=== PATIENT | female | born 1955 | race African-American/Black ===

== ENCOUNTER → 2016-08-29 | Outpatient (CLI) | payer MEDICARE ==
[2016-08-30 10:37] LABS: CREATININE URINE 123.7 mg/dL (Not Estab.); MICROALBUMIN URINE 56.9 ug/mL (Not Estab.)
== END ==
LOC: OD 12:12
PROVIDERS: ATTEND Internal Medicine Nephrology
DX: N18.3 Chronic kidney disease, stage 3 (moderate) (principal); R80.9 Proteinuria, unspecified; E55.9 Vitamin D deficiency, unspecified
CPT/HCPCS: 36415; 82043; 82306; 82310; 82570

== ENCOUNTER → 2016-09-05 | Outpatient (CLI) | payer MEDICARE ==
[2016-09-05 12:18] LABS: ANION GAP 15 (5-19); BLOOD UREA NITROGEN 35 mg/dL (7-20); CARBON DIOXIDE 24 mmol/L (22-30); CHLORIDE 111 mmol/L (98-107); GLUCOSE 99 mg/dL (75-110); POTASSIUM 4.4 mmol/L (3.6-5.0); SODIUM 149.6 mmol/L (137-145)
== END ==
LOC: OD 10:37
PROVIDERS: ATTEND Internal Medicine Nephrology
DX: N18.3 Chronic kidney disease, stage 3 (moderate) (principal)
CPT/HCPCS: 36415; 80048

== ENCOUNTER → 2016-10-15 | Outpatient (CLI) | payer MEDICARE | LOC: OD 12:26 | PROVIDERS: ATTEND Internal Medicine Medical Oncology | DX: C64.9 Malignant neoplasm of unspecified kidney, except renal pelvis (principal) | CPT/HCPCS: 71020 ==

== ENCOUNTER → 2016-10-27 | Outpatient (CLI) | payer MEDICARE | LOC: WI 13:55 | PROVIDERS: ATTEND Internal Medicine Medical Oncology | DX: Z12.31 Encounter for screening mammogram for malignant neoplasm of breast (principal) | CPT/HCPCS: 77067; G0202 ==

== ENCOUNTER → 2016-11-19 | Outpatient (CLI) | payer MEDICARE | LOC: OD 15:24 | PROVIDERS: ATTEND Family Medicine | DX: M54.5 Low back pain (principal); M47.897 Other spondylosis, lumbosacral region | CPT/HCPCS: 72100 ==

== ENCOUNTER → 2016-11-20 | Outpatient (CLI) | payer MEDICARE ==
[~2016-11-20] MED LIST: AMINOPHYLLINE INJ/PF 250 MG/10 ML SDV IV ONE; REGADENOSON INJ 0.4 MG/5 ML DISP.SYRIN IV ONE
--- NOTE | 2016-11-20 20:02 | DRAGON STRESS TEST REPORT ---
INTRAVENOUS LEXISCAN CARDIOLITE STRESS TEST USING SINGLE PHOTON EMMISION COMPUTERIZED TOMOGRAPHIC. DATE OF PROCEDURE: November 20, 2016 INDICATION : Coronary artery disease, cardiomyopathy. CARDIAC RISK FACTORS: hypertension, family history of CAD RESTING EKG: Sinus rhythm, no Baseline ST-T wave changes noted. STRESS EKG: No significant changes noted with LexiScan bolus REASON FOR TERMINATION: Protocol. PROCEDURE REPORT: Baseline heart rate 94 beats per minute with blood pressure of 143/78. Patient had no significant complaints. Heart rate at 2 minutes post bolus 81 with a blood pressure of 137/80. 3 minutes post bolus heart rate [111] with blood pressure of [144/88]. No significant EKG changes were noted. Patient had significant complaints during the procedure or postprocedure. It seems patient most likely had a panic attacks with symptoms of shortness of breath, dizziness, chattering of her teeth and some shaking spells. Patient injected with Aminophyllin 75 mg at 3 minutes or later after Lexiscan bolus. Another bolus of 50 mg Aminophyllin given at approximately 40 minutes post Lexiscan bolus. CONCLUSIONS: Normal EKG and hemodynamic response to IV LexiScan. NUCLEAR DATA: At rest the patient was given 13.34 millicuries of technetium 99 sestamibi injected intravenously. As per protocol rest gated SPECT images were obtained. Subsequently the patient was given intravenous LexiScan at a dose of 0.4 mg in 5 mL intravenously, followed by flush with normal saline. Subsequently the stress dose of 38.3 millicuries of technetium 99 sestamibi was injected intravenously. As per protocol stress gated images were obtained. NUCLEAR INTERPRETATION: Both raw and processed data were used for interpretation. Visual, qualitative, computer-generated quantitative data was used. There was good myocardial uptake of technetium compound. Motion artifact and soft tissue attenuations were noted. Increased visceral uptake was noted. Increased breast attenuation was also noted. There was mild decreased uptake noted in the anterior wall in stress imaging with total SSS score of 3, however there were no corresponding wall motion abnormalities therefore this decreased uptake is felt to be related to differences in breast attenuation artifact. Clinical correlation however is being recommended. No definitive areas of fixed perfusion defect or scars noted. EKG gated imaging showed LV EF at 54 %, rest and stress gated EF similar visually. T. I D. ratio was 0.99. Lung heart ratio noted to be within normal limits 0.29. No significant extracardiac and abnormal radiotracer activities were noted. RV free wall uptake was noted to be mildly increased. IMPRESSION: Also refer to comments under nuclear interpretation. Also test results needs to be interpreted in the context of pretest probability. 1. There is no definitive scintigraphic evidence of LexiScan induced myocardial ischemia.There was mild decreased uptake noted in the anterior wall in stress imaging with total SSS score of 3, however there were no corresponding wall motion abnormalities therefore this decreased uptake is felt to be related to differences in breast attenuation artifact. Clinical correlation however is being recommended. 2. There is no definitive scintigraphic evidence of myocardial infarction/scar. 3. EKG gated imaging shows left ejection fraction of approximately 54 %, no regional wall motion abnormalities were noted. 4. Clinical correlation requested as occasionally single vessel disease or balanced ischemia could be missed. In approximately 10% of the cases Lexiscan may not cause adequate vasodilatory stress. RECOMMENDATIONS: Aggressive risk factor modification, medical therapy. Clinical correlation with echocardiogram derived ejection fraction. Inability to exercise by itself can lead to increased cardiovascular event risks. Consider cardiology consultation and or follow-up if clinically indicated. I AM AVAILABLE FOR CARDIOLOGY CONSULTATION AND FOLLOWUP IF REQUESTED BY PMD Ishaan Mckinley M.D., [employer] Associate solar manager, Board certified in cardiovascular diseases, Nuclear cardiology, Echocardiography Cardiac CT and cardiac MRI Ph. [phone] [facility]
== END ==
LOC: RAD 07:00
PROVIDERS: ATTEND Internal Medicine Cardiovascular Disease
DX: I25.10 Atherosclerotic heart disease of native coronary artery without angina pectoris (principal)
CPT/HCPCS: 93017; 78452; A9500; J2785; J0280; Q9969

== ENCOUNTER → 2016-11-26 | Outpatient (CLI) | payer MEDICARE ==
[2016-11-26 15:33] LABS: ABSOLUTE EOSINOPHILS # (AUTO) 0.1 10^3/uL (0.0-0.6); ABSOLUTE LYMPHOCYTES (AUTO) 1.6 10^3/uL (0.5-4.7); ABSOLUTE MONOCYTES (AUTO) 0.3 10^3/uL (0.1-1.4); ABSOLUTE NEUT (AUTO) 2.2 10^3/uL (1.7-8.2); BASOPHILS % (AUTO) 0.7 % (0-2); EOSINOPHILS % (AUTO) 1.2 % (0-6); HEMATOCRIT 34.5 % (36.0-47.0); HEMOGLOBIN 11.2 g/dL (12.0-15.5); HGB HCT DIFFERENCE -0.9; LYMPHOCYTES % (AUTO) 37.9 % (13-45); MEAN CORPUSCULAR HEMOGLOBIN 27.3 pg (27.0-33.4); MEAN CORPUSCULAR HGB CONC 32.4 g/dL (32.0-36.0); MEAN CORPUSCULAR VOLUME 84 fl (80-97); MONOCYTES % (AUTO) 7.7 % (3-13); RED CELL DISTRIBUTION WIDTH 15.6 % (11.5-14.0); SEGMENTED NEUTROPHILS % (AUTO) 52.5 % (42-78); WHITE BLOOD COUNT 4.2 10^3/uL (4.0-10.5)
[2016-11-26 15:53] LABS: ANION GAP 14 (5-19); BLOOD UREA NITROGEN 40 mg/dL (7-20); CALCIUM 9.7 mg/dL (8.4-10.2); CARBON DIOXIDE 24 mmol/L (22-30); CHLORIDE 108 mmol/L (98-107); GLUCOSE 114 mg/dL (75-110); POTASSIUM 4.6 mmol/L (3.6-5.0); SODIUM 146.4 mmol/L (137-145)
[2016-11-28 10:38] LABS: CREATININE URINE 170.9 mg/dL (Not Estab.); MICROALBUMIN URINE 48.3 ug/mL (Not Estab.)
== END ==
LOC: OD 14:46
PROVIDERS: ATTEND Internal Medicine Nephrology
DX: N18.3 Chronic kidney disease, stage 3 (moderate) (principal); R80.9 Proteinuria, unspecified; D64.9 Anemia, unspecified
CPT/HCPCS: 36415; 80048; 82043; 82570; 85025

== ENCOUNTER 2016-12-09 12:41 | Emergency (ER) | payer MEDICARE ==
--- NOTE | 2016-12-09 13:35 | ER Document Report ---
ED Skin Rash/Insect Bite/Abscs - General Chief Complaint: Abscess Stated Complaint: POSSIBLE BOIL ON THIGH Time Seen by Provider: 12/09/16 13:24 Mode of Arrival: Ambulatory Information source: Patient Notes: Pt is a 61 year old female who presents to the ER today for a boil on her left labia that burst 4 days ago but continues to drain. Pt states that it had "a lot of pus" come from it and is now draining clear liquid and blood. She denies fever/chills. She thinks she may have a history of MRSA. TRAVEL OUTSIDE OF THE [place] IN LAST 30 DAYS: No - Related Data Allergies/Adverse Reactions: sulfamethoxazole [From Bactrim] Allergy (Verified 12/09/16 13:09) trimethoprim [From Bactrim] Allergy (Verified 12/09/16 13:09) aspirin [Aspirin] Adverse Reaction (Verified 12/09/16 13:09) Past Medical History - General Information source: Patient - Social History Smoking Status: Unknown if Ever Smoked Family History: CAD, Hypertension Patient has suicidal ideation: No Patient has homicidal ideation: No - Past Medical History Cardiac Medical History: Reports: Hx Congestive Heart Failure, Hx Coronary Artery Disease, Hx Heart Attack - [place] 2013, Hx Hypercholesterolemia, Hx Hypertension Pulmonary Medical History: Denies: Hx Asthma, Hx Bronchitis, Hx COPD, Hx Pneumonia, Hx Tuberculosis Neurological Medical History: Denies: Hx Cerebrovascular Accident, Hx Seizures Renal/ Medical History: Reports: Hx Renal Insufficiency - Status post left nephrectomy for renal cell CA. Denies: Hx Peritoneal Dialysis Malignancy Medical History: Reports: Hx Renal (Kidney) Cancer GI Medical History: Reports: Hx Gastritis, Hx Gastroesophageal Reflux Disease Musculoskeltal Medical History: Reports Hx Arthritis - Right hip DJD Past Surgical History: Reports: Hx Cholecystectomy, Hx Herniorrhaphy - Umbilical hernia repair complicated by bowel perforation, Hx Kidney (Renal Surgery) - Left nephrectomy for renal cell carcinoma - Immunizations Hx Diphtheria, Pertussis, Tetanus Vaccination: Yes Hx Pneumococcal Vaccination: 08/03/10 Review of Systems - Review of Systems Constitutional: No symptoms reported EENT: No symptoms reported Cardiovascular: No symptoms reported Respiratory: No symptoms reported Gastrointestinal: No symptoms reported Genitourinary: No symptoms reported Female Genitourinary: No symptoms reported Musculoskeletal: No symptoms reported Skin: See HPI Hematologic/Lymphatic: No symptoms reported Neurological/Psychological: No symptoms reported Physical Exam - Vital signs Vitals: Temp Pulse Resp BP Pulse Ox 98.2 F 59 L 18 150/90 H 99 12/09/16 12:54 12/09/16 12:54 12/09/16 12:54 12/09/16 12:54 12/09/16 12:54 - Notes Notes: PHYSICAL EXAMINATION: GENERAL: Well-appearing and in no acute distress. HEAD: Atraumatic, normocephalic. EYES: Pupils equal round and reactive to light, extraocular movements intact, sclera anicteric, conjunctiva are normal. NECK: Normal range of motion, supple without lymphadenopathy LUNGS: CTAB and equal. No wheezes rales or rhonchi. HEART: Regular rate and rhythm without murmurs EXTREMITIES: Normal range of motion, no pitting edema. No cyanosis. NEUROLOGICAL: Cranial nerves grossly intact. Normal sensory/motor exams. PSYCH: Normal mood, normal affect. SKIN: Warm, Dry, normal turgor, 3 cm long by 1 cm wide area of induration with open area in center draining purulent fluid and blood Course - Re-evaluation Re-evalutation: 12/09/16 13:39 area already draining, will start pt on doxycycline. she is to return if area worsens or draining stops and area doesn't improve. pt would like to try antibiotic before incision and drainage. 12/09/16 13:50 12/09/16 13:51 - Vital Signs Vital signs: Temp Pulse Resp BP Pulse Ox 98.2 F 59 L 18 150/90 H 99 12/09/16 12:54 12/09/16 12:54 12/09/16 12:54 12/09/16 12:54 12/09/16 12:54 Discharge - Discharge Clinical Impression: Abscess of labia Condition: Stable Disposition: HOME, SELF-CARE Instructions: Post Incision and Drainage, Oral Narcotic Medication ([facility]) Additional Instructions: Return immediately for any new or worsening symptoms. Follow up with primary care provider, call tomorrow to make followup appointment. Prescriptions: Doxycycline Hyclate 100 mg PO BID #20 capsule
[2016-12-09] MEDS ORDERED: DOXYCYCLINE HYCLATE 100 MG TABLET PO ONE (13:36)
[2016-12-09] MEDS ORDERED: HYDROCODONE/ACETAMINOPHEN 5-325 MG 6 TAB/DSPK PO PRN (13:36)
[2016-12-09] MEDS ORDERED: MUPIROCIN 2% OINTMENT 22 GM TP ONE (13:42)
[2016-12-09 15:24] VITALS: BP 146/84
== END 2016-12-09 14:18 | disposition home or self-care (01) ==
LOC: ER 12:41
DX: N76.4 Abscess of vulva (principal); I50.9 Heart failure, unspecified; E78.00 Pure hypercholesterolemia, unspecified; I10 Essential (primary) hypertension; Z88.3 Allergy status to other anti-infective agents; Z88.6 Allergy status to analgesic agent; Z86.14 Personal history of Methicillin resistant Staphylococcus aureus infection; I25.2 Old myocardial infarction
CPT/HCPCS: 99282; A9270 ×3; J3490

== ENCOUNTER 2016-12-19 07:52 | Inpatient (IN) | payer MEDICARE ==
[2016-12-19 10:03] LABS: ABSOLUTE MONOCYTES (AUTO) 0.4 10^3/uL (0.1-1.4); HEMOGLOBIN 13.6 g/dL (12.0-15.5); MEAN CORPUSCULAR VOLUME 85 fl (80-97); WHITE BLOOD COUNT 6.5 10^3/uL (4.0-10.5)
[2016-12-19 10:11] LABS: APPEARANCE,URINE SLIGHTLY-CLOUDY; BILIRUBIN,URINE NEGATIVE (NEGATIVE); GLUCOSE, URINE NEGATIVE (NEGATIVE); KETONES,URINE NEGATIVE (NEGATIVE); LEUKOCYTE ESTERASE,URINE NEGATIVE (NEGATIVE); NITRITE,URINE NEGATIVE (NEGATIVE); PROTEIN,URINE 30 mg/dL (NEGATIVE); URINE SPECIFIC GRAVITY 1.016; UROBILINOGEN,URINE NEGATIVE mg/dL (<2.0)
[2016-12-19 10:12] LABS: ABSOLUTE LYMPHOCYTES (AUTO) 1.5 10^3/uL (0.5-4.7); ABSOLUTE NEUT (AUTO) 4.6 10^3/uL (1.7-8.2); ALANINE AMINOTRANSFERASE 49 U/L (9-52); ALBUMIN 4.2 g/dL (3.5-5.0); ALKALINE PHOSPHATASE 264 U/L (38-126); ANION GAP 19 (5-19); ASPARTATE AMINO TRANSFERASE 42 U/L (14-36); BASOPHILS % (AUTO) 0.5 % (0-2); BILIRUBIN,DIRECT 0.6 mg/dL (0.0-0.4); BILIRUBIN,TOTAL 0.9 mg/dL (0.2-1.3); BLOOD UREA NITROGEN 46 mg/dL (7-20); CALCIUM 9.8 mg/dL (8.4-10.2); CARBON DIOXIDE 14 mmol/L (22-30); CHLORIDE 110 mmol/L (98-107); CREATININE RESULT 1.62 mg/dL (0.52-1.25); EOSINOPHILS % (AUTO) 0.1 % (0-6); GLUCOSE 134 mg/dL (75-110); HEMATOCRIT 43.4 % (36.0-47.0); HGB HCT DIFFERENCE -2.6; LIPASE 860.4 U/L (23-300); LYMPHOCYTES % (AUTO) 22.8 % (13-45); MEAN CORPUSCULAR HEMOGLOBIN 26.7 pg (27.0-33.4); MEAN CORPUSCULAR HGB CONC 31.3 g/dL (32.0-36.0); MONOCYTES % (AUTO) 6.2 % (3-13); POTASSIUM 4.3 mmol/L (3.6-5.0); RED BLOOD COUNT 5.08 10^6/uL (3.72-5.28); RED CELL DISTRIBUTION WIDTH 15.6 % (11.5-14.0); SEGMENTED NEUTROPHILS % (AUTO) 70.4 % (42-78); SODIUM 143.4 mmol/L (137-145); TOTAL PROTEIN 8.4 g/dL (6.3-8.2)
[2016-12-19] MEDS ORDERED: ONDANSETRON 4 MG TAB.RAPDIS PO ONE (10:31)
--- NOTE | 2016-12-19 10:31 | ER Document Report ---
ED Medical Screen (RME) - General Mode of Arrival: Wheelchair Information source: Patient TRAVEL OUTSIDE OF THE [place] IN LAST 30 DAYS: No <FABIOLA WATTS - Last Filed: 12/19/16 10:27> <ILIR HEARN - Last Filed: 12/20/16 10:23> - General Chief Complaint: Abdominal Pain Stated Complaint: RIGHT SIDE FLANK PAIN/VOMITING Time Seen by Provider: 12/19/16 10:22 Notes: 61-year-old female presents to ED for right upper quadrant abdominal pain that goes around to the back. She states it is worse with food it is a dull achy pain. She has had it for 2 days. She had nausea and vomiting vomiting 3 times yesterday and twice today. She had 4 mg of Zofran yesterday that did not help. She has a history of a mesh from umbilical hernia with some weight in this area. She has a normal white count had a lipase rate 60 a BUN of 46 with a creatinine of 162 and AST of 42 and ALT of 49 and a negative urine. I will be ordering an ultrasound of the upper abdomen. I have greeted and performed a rapid initial assessment of this patient. A comprehensive ED assessment and evaluation of the patient, analysis of test results and completion of medical decision making process will be conducted by an additional ED providers. (FABIOLA WATTS) - Related Data Allergies/Adverse Reactions: sulfamethoxazole [From Bactrim] Allergy (Verified 12/19/16 08:02) trimethoprim [From Bactrim] Allergy (Verified 12/19/16 08:02) aspirin [Aspirin] Adverse Reaction (Verified 12/19/16 08:02) Past Medical History - Social History Family history: Reviewed & Not Pertinent - Past Medical History Cardiac Medical History: Reports: Hx Congestive Heart Failure, Hx Coronary Artery Disease, Hx Heart Attack - [place] 2013, Hx Hypercholesterolemia, Hx Hypertension Pulmonary Medical History: Denies: Hx Asthma, Hx Bronchitis, Hx COPD, Hx Pneumonia, Hx Tuberculosis Neurological Medical History: Denies: Hx Cerebrovascular Accident, Hx Seizures Renal/ Medical History: Reports: Hx Renal Insufficiency - Status post left nephrectomy for renal cell CA. Denies: Hx Peritoneal Dialysis Malignancy Medical History: Reports: Hx Renal (Kidney) Cancer GI Medical History: Reports: Hx Gastritis, Hx Gastroesophageal Reflux Disease Musculoskeltal Medical History: Reports Hx Arthritis - Right hip DJD Past Surgical History: Reports: Hx Abdominal Surgery - HERNIA, PERFORATED BOWEL , Hx Cholecystectomy, Hx Herniorrhaphy - Umbilical hernia repair complicated by bowel perforation, Hx Kidney (Renal Surgery) - Left nephrectomy for renal cell carcinoma - Immunizations Hx Diphtheria, Pertussis, Tetanus Vaccination: Yes <FABIOLA WATTS - Last Filed: 12/19/16 10:27> Course - Laboratory Result Diagrams: 12/19/16 09:00 12/19/16 09:00 <FABIOLA WATTS - Last Filed: 12/19/16 10:27> - Laboratory Result Diagrams: 12/20/16 05:30 12/19/16 09:00 <ILIR HEARN - Last Filed: 12/20/16 10:23> - Vital Signs Vital signs: Temp Pulse Resp BP Pulse Ox 97.8 F 69 16 165/82 H 100 12/20/16 07:25 12/20/16 07:25 12/20/16 07:25 12/20/16 07:25 12/20/16 04:00 - Laboratory Laboratory results interpreted by me: 12/19/16 12/19/16 12/19/16 09:00 09:00 09:10 MCH 26.7 L MCHC 31.3 L RDW 15.6 H Chloride 110 H Carbon Dioxide 14 L BUN 46 H Creatinine 1.62 H Est GFR ( Amer) 39 L Est GFR (Non-Af Amer) 33 L Glucose 134 H Direct Bilirubin 0.6 H AST 42 H Alkaline Phosphatase 264 H Total Protein 8.4 H Lipase 860.4 H Urine Protein 30 H Doctor's Discharge <FABIOLA WATTS - Last Filed: 12/19/16 10:27> <ILIR HEARN - Last Filed: 12/20/16 10:23> - Discharge Clinical Impression: Pancreatitis, Nausea and vomiting, Chronic renal insufficiency, stage III ( moderate), Metabolic acidosis Condition: Stable Disposition: ADMITTED INPATIENT
[2016-12-19] MEDS ORDERED: NORMAL SALINE 1000 ML 1,000 ML IV ONE ×2 (11:16→15:14)
[2016-12-19] MEDS ORDERED: MORPHINE SULFATE 10 MG/ML INJ IV ONE ×3 (12:02→15:46)
--- NOTE | 2016-12-19 12:08 | ER Document Report ---
ED GI/ - General Mode of Arrival: Wheelchair Information source: Patient TRAVEL OUTSIDE OF THE [place] IN LAST 30 DAYS: No - HPI Patient complains to provider of: Abdominal pain, Vomiting Onset: Other - 2 days ago Location: RUQ Associated symptoms: Other - see notes above <ROXY DOBSON - Last Filed: 12/19/16 14:11> <MALKA STOCKTON - Last Filed: 12/19/16 16:07> - General Chief Complaint: Abdominal Pain Stated Complaint: RIGHT SIDE FLANK PAIN/VOMITING Time Seen by Provider: 12/19/16 10:22 Notes: 61 year old female with history of CHF, CAD, [place] (2013), hypertension, umbilical hernia repair, cholecystectomy, and perforated bowel repair presents to the ED complaining of RUQ abdominal pain and vomiting that started 2 days ago. Patient states that she vomited 3x yesterday and 2x today. Patient tried using 4 mg Zofran yesterday to no relief. Patient is currently on chlorthalidone and losartan. Patient's primary care provider is Dr. Arias. Patient had a CT abdomen performed on 07/2015 which revealed a pancreatic mass to the tail and had a Ultrasound guided biopsy at [facility]. Additional past medical history found in chart. (ROXY DOBSON) - Related Data Allergies/Adverse Reactions: sulfamethoxazole [From Bactrim] Allergy (Verified 12/19/16 08:02) trimethoprim [From Bactrim] Allergy (Verified 12/19/16 08:02) aspirin [Aspirin] Adverse Reaction (Verified 12/19/16 08:02) Past Medical History - General Information source: Patient - Social History Smoking Status: Unknown if Ever Smoked Family History: CAD, Hypertension Patient has suicidal ideation: No Patient has homicidal ideation: No - Past Medical History Cardiac Medical History: Reports: Hx Congestive Heart Failure, Hx Coronary Artery Disease, Hx Heart Attack - [place] 2013, Hx Hypercholesterolemia, Hx Hypertension Renal/ Medical History: Reports: Hx Renal Insufficiency - Status post left nephrectomy for renal cell CA. Denies: Hx Peritoneal Dialysis Malignancy Medical History: Reports: Hx Pancreatic Cancer - Mass to the pancreatic tail 07/2015., Hx Renal (Kidney) Cancer, Other - CT guided lung biopsy in 2015. GI Medical History: Reports: Hx Gastritis, Hx Gastroesophageal Reflux Disease Musculoskeltal Medical History: Reports Hx Arthritis - Right hip DJD Past Surgical History: Reports: Hx Abdominal Surgery - HERNIA, PERFORATED BOWEL , Hx Cholecystectomy, Hx Herniorrhaphy - Umbilical hernia repair complicated by bowel perforation, Hx Kidney (Renal Surgery) - Left nephrectomy for renal cell carcinoma - Immunizations Hx Diphtheria, Pertussis, Tetanus Vaccination: Yes Hx Pneumococcal Vaccination: 08/03/10 <ROXY DOBSON - Last Filed: 12/19/16 14:11> Review of Systems - Review of Systems Constitutional: No symptoms reported EENT: No symptoms reported Cardiovascular: No symptoms reported Respiratory: No symptoms reported Gastrointestinal: See HPI, Abdominal pain - RUQ, Nausea, Vomiting Genitourinary: No symptoms reported Female Genitourinary: No symptoms reported Musculoskeletal: No symptoms reported Skin: No symptoms reported Hematologic/Lymphatic: No symptoms reported Neurological/Psychological: No symptoms reported -: Yes All other systems reviewed and negative <ROXY DOBSON - Last Filed: 12/19/16 14:11> Physical Exam - General General appearance: Alert In distress: None - HEENT Head: Normocephalic, Atraumatic Eyes: Normal Extraocular movements intact: Yes Pupils: PERRL - Respiratory Respiratory status: No respiratory distress Breath sounds: Normal - Cardiovascular Rhythm: Regular Heart sounds: Normal auscultation - Abdominal Inspection: Normal Distension: No distension Tenderness: Tender - epigastric tenderness to palpation - Back Back: Normal - Extremities General upper extremity: Normal inspection, Normal ROM General lower extremity: Normal inspection, Normal ROM - Neurological Neuro grossly intact: Yes - Psychological Associated symptoms: Normal affect, Normal mood - Skin Skin Temperature: Warm Skin Moisture: Dry Skin Color: Normal <ROXY DOBSON - Last Filed: 12/19/16 14:11> Course - Laboratory Result Diagrams: 12/19/16 09:00 12/19/16 09:00 <ROXY DOBSON - Last Filed: 12/19/16 14:11> - Laboratory Result Diagrams: 12/19/16 09:00 12/19/16 09:00 - Consults Dr. George Time consulted: 16:00 Consulted provider: will come to ER <MALKA STOCKTON - Last Filed: 12/19/16 16:07> - Vital Signs Vital signs: Temp Pulse Resp BP Pulse Ox 97.8 F 59 L 20 145/83 H 100 12/19/16 08:04 12/19/16 14:08 12/19/16 08:04 12/19/16 14:08 12/19/16 14:08 - Laboratory Laboratory results interpreted by me: 12/19/16 12/19/16 12/19/16 09:00 09:00 09:10 MCH 26.7 L MCHC 31.3 L RDW 15.6 H Chloride 110 H Carbon Dioxide 14 L BUN 46 H Creatinine 1.62 H Est GFR ( Amer) 39 L Est GFR (Non-Af Amer) 33 L Glucose 134 H Direct Bilirubin 0.6 H AST 42 H Alkaline Phosphatase 264 H Total Protein 8.4 H Lipase 860.4 H Urine Protein 30 H Discharge <ROXY DOBSON - Last Filed: 12/19/16 14:11> - Discharge Admitting Provider: Hospitalist Unit Admitted: Medical Floor <MALKA STOCKTON - Last Filed: 12/19/16 16:07> - Discharge Clinical Impression: Chronic renal insufficiency, stage III (moderate), Metabolic acidosis Pancreatitis Qualifiers: Chronicity: acute Pancreatitis type: unspecified pancreatitis type Acute pancreatitis complication: no infection or necrosis Qualified Code(s): K85.90 - Acute pancreatitis without necrosis or infection, unspecified Nausea and vomiting Qualifiers: Vomiting type: unspecified Vomiting Intractability: non-intractable Qualified Code(s): R11.2 - Nausea with vomiting, unspecified Condition: Stable Disposition: ADMITTED INPATIENT Scribe Attestation: 12/19/16 16:07 I personally performed the services described in the documentation, reviewed and edited the documentation which was dictated to the scribe in my presence, and it accurately records my words and actions. (MALKA STOCKTON) Scribe Documentation - Scribe Written by Scribe:: Luis Redd, 12/19/2016 [id number] acting as scribe for :: Isidoro <ROXY DOBSON - Last Filed: 12/19/16 14:11>
[2016-12-19 12:17] LABS: ADD ON TESTING BLD IN LAB ACKNOWLEDGE
[2016-12-19 12:49] LABS: CHOLESTEROL 112.52 mg/dL (0-200); TRIGLYCERIDES 79 mg/dL (<150)
[2016-12-19] MEDS ORDERED: HYDROMORPHONE HCL INJ/PF 2 MG/ML AMPULE IM ONE (13:30)
[2016-12-19] MEDS ORDERED: ONDANSETRON HCL INJ/PF 4 MG/2 ML SDV IV ONE (15:46)
[2016-12-19] MEDS ORDERED: ONDANSETRON HCL INJ/PF 4 MG/2 ML SDV IV PRN (16:33)
[2016-12-19] MEDS ORDERED: ACETAMINOPHEN 325 MG TABLET PO PRN (16:33)
--- NOTE | 2016-12-19 17:00 | PDOC H&P ---
History of Present Illness Admission Date/PCP: 12/19/16 PCP: dr jones Nephro: dr mead GI: dr menendez, [place] Patient complains of: epigastric pain History of Present Illness: JIHAN MORA is a 61 year old female presents to the ED from home with 2d hx of sharp, stabbing, constant, crescendo, non radiating epigastric pain asctd with nausea and vomiting, worse after eating, better with rest but unrelieved by her usual percocet at home. she has hx of pancreatitis with ?panc tail mass for which she is seen by GI in [place]. last endoscopy upper and lower was last year and reportedly normal. eval in ED shows elevated lipase and findings at bedside suggest recurrent pancreatitis. we were asked to admit. lipids were normal. she denies ETOH confirmed by her daughter at bedside. no new meds. Past Medical History Cardiac Medical History: Reports: Congestive Heart Failure, Coronary Artery Disease, Myocardial Infarction - [place] 2013, Hyperlipidema, Hypertension Pulmonary Medical History: Denies: Asthma, Bronchitis, Chronic Obstructive Pulmonary Disease (COPD), Pneumonia, Tuberculosis Neurological Medical History: Denies: Seizures Malignancy Medical History: Reports: Pancreatic Cancer - Mass to the pancreatic tail 07/2015., Renal (Kidney) Cancer, Other - CT guided lung biopsy in 2016. GI Medical History: Reports: Gastroesophageal Reflux Disease Musculoskeltal Medical History: Reports: Arthritis - Right hip DJD Hematology: Reports: Anemia Past Surgical History Past Surgical History: Reports: Cholecystectomy, Herniorrhaphy - Umbilical hernia repair complicated by bowel perforation Social History Smoking Status: Unknown if Ever Smoked Frequency of Alcohol Use: None Hx Recreational Drug Use: No Hx Prescription Drug Abuse: No - Advance Directive Resuscitation Status: Full Code Family History Family History: CAD, Hypertension Parental Family History Reviewed: Yes Children Family History Reviewed: Yes Sibling(s) Family History Reviewed.: Yes Medication/Allergy Home Medications: Oxycodone HCl/Acetaminophen [Percocet 5-325 mg Tablet] 1 - 2 tab PO Q6H PRN #12 tablet 12/26/14 Chlorthalidone [Chlorthalidone 25 mg Tablet] 25 mg PO 07/09/16 Ergocalciferol (Vitamin D2) [Vitamin D] 07/09/16 Losartan Potassium 50 mg PO 07/09/16 Doxycycline Hyclate 100 mg PO BID #20 capsule 12/09/16 Allergies/Adverse Reactions: sulfamethoxazole [From Bactrim] Allergy (Verified 12/19/16 08:02) trimethoprim [From Bactrim] Allergy (Verified 12/19/16 08:02) aspirin [Aspirin] Adverse Reaction (Verified 12/19/16 08:02) Review of Systems Constitutional: ABSENT: chills, fever(s), headache(s), weight gain, weight loss Eyes: ABSENT: visual disturbances Ears: ABSENT: hearing changes Cardiovascular: ABSENT: chest pain, dyspnea on exertion, edema, orthropnea, palpitations Respiratory: ABSENT: cough, hemoptysis Gastrointestinal: PRESENT: abdominal pain, diarrhea, nausea, vomiting. ABSENT: constipation, hematemesis, hematochezia Genitourinary: PRESENT: difficulty urinating - less urine output. ABSENT: dysuria, hematuria Musculoskeletal: ABSENT: joint swelling Integumentary: ABSENT: rash, wounds Neurological: ABSENT: abnormal gait, abnormal speech, confusion, dizziness, focal weakness, syncope Psychiatric: ABSENT: anxiety, depression, homidical ideation, suicidal ideation Endocrine: ABSENT: cold intolerance, heat intolerance, polydipsia, polyuria Hematologic/Lymphatic: ABSENT: easy bleeding, easy bruising Physical Exam Vital Signs: Temp Pulse Resp BP Pulse Ox 97.8 F 59 L 20 145/83 H 100 12/19/16 08:04 12/19/16 14:08 12/19/16 08:04 12/19/16 14:08 12/19/16 14:08 Intake & Output 12/18/16 12/19/16 12/20/16 06:59 06:59 06:59 Weight 88.6 kg General appearance: PRESENT: mild distress, well-developed, well-nourished Head exam: PRESENT: atraumatic Eye exam: ABSENT: conjunctival injection, scleral icterus Mouth exam: PRESENT: dry mucosa, neck supple Neck exam: PRESENT: full ROM. ABSENT: JVD, tenderness Respiratory exam: PRESENT: clear to auscultation marianna. ABSENT: accessory muscle use Cardiovascular exam: PRESENT: RRR. ABSENT: tachycardia Pulses: PRESENT: normal carotid pulses, normal radial pulses Vascular exam: PRESENT: normal capillary refill GI/Abdominal exam: PRESENT: diminished bowel sounds, soft, tenderness - epigastrium to percussion, intol of palpation Extremities exam: PRESENT: full ROM. ABSENT: calf tenderness, pedal edema Musculoskeletal exam: PRESENT: ambulatory, full ROM Neurological exam: PRESENT: alert, awake, oriented to person, oriented to place , oriented to time, oriented to situation Psychiatric exam: PRESENT: appropriate affect, normal mood Skin exam: PRESENT: dry, warm Results Laboratory Results: 12/19/16 09:00 12/19/16 09:00 12/19/16 12/19/16 12/19/16 09:00 09:00 09:00 WBC 6.5 RBC 5.08 Hgb 13.6 Hct 43.4 MCV 85 MCH 26.7 L MCHC 31.3 L RDW 15.6 H Plt Count 212 Seg Neutrophils % 70.4 Lymphocytes % 22.8 Monocytes % 6.2 Eosinophils % 0.1 Basophils % 0.5 Absolute Neutrophils 4.6 Absolute Lymphocytes 1.5 Absolute Monocytes 0.4 Absolute Eosinophils 0.0 Absolute Basophils 0.0 Sodium 143.4 Potassium 4.3 Chloride 110 H Carbon Dioxide 14 L Anion Gap 19 BUN 46 H Creatinine 1.62 H Est GFR ( Amer) 39 L Est GFR (Non-Af Amer) 33 L Glucose 134 H Calcium 9.8 Total Bilirubin 0.9 AST 42 H ALT 49 Alkaline Phosphatase 264 H Total Protein 8.4 H Albumin 4.2 Triglycerides 79 Cholesterol 112.52 Lipase 860.4 H Urine Color Urine Appearance Urine pH Ur Specific [place] Urine Protein Urine Glucose (UA) Urine Ketones Urine Blood Urine Nitrite Ur Leukocyte Esterase Urine WBC (Auto) Urine RBC (Auto) 12/19/16 09:10 WBC RBC Hgb Hct MCV MCH MCHC RDW Plt Count Seg Neutrophils % Lymphocytes % Monocytes % Eosinophils % Basophils % Absolute Neutrophils Absolute Lymphocytes Absolute Monocytes Absolute Eosinophils Absolute Basophils Sodium Potassium Chloride Carbon Dioxide Anion Gap BUN Creatinine Est GFR ( Amer) Est GFR (Non-Af Amer) Glucose Calcium Total Bilirubin AST ALT Alkaline Phosphatase Total Protein Albumin Triglycerides Cholesterol Lipase Urine Color YELLOW Urine Appearance SLIGHTLY-CLOUDY Urine pH 5.0 Ur Specific [place] 1.016 Urine Protein 30 H Urine Glucose (UA) NEGATIVE Urine Ketones NEGATIVE Urine Blood NEGATIVE Urine Nitrite NEGATIVE Ur Leukocyte Esterase NEGATIVE Urine WBC (Auto) 1 Urine RBC (Auto) 0 Impressions: Abdomen Ultrasound 12/19/16 10:31 IMPRESSION: Negative right upper quadrant ultrasound status post cholecystectomy. Status: Imported from PACS Assessment & Plan - Diagnosis (1) Pancreatitis Qualifiers: Chronicity: acute Pancreatitis type: unspecified pancreatitis type Acute pancreatitis complication: no infection or necrosis Qualified Code(s) : K85.90 - Acute pancreatitis without necrosis or infection, unspecified Is this a current diagnosis for this admission?: YesPlan: admit for IVFs, bowel rest, analgesics/antiemetics prn. will need close monitoring of electrolytes and replenishment prn. trend CRP as more reliable marker of clinical course than enzymes. (2) Chronic renal insufficiency, stage III (moderate) Is this a current diagnosis for this admission?: YesPlan: Uni-kidney due to prior nephrectomy, baseline Scr around 1.6 (3) Metabolic acidosis Is this a current diagnosis for this admission?: YesPlan: likely related to above; ck lactic acid and hydrate (4) Pancreatic mass Is this a current diagnosis for this admission?: YesPlan: depending on her clinical course, may need MRCP to further evaluate. - Time Time Spent: 50 to 70 Minutes Medications reviewed and adjusted accordingly: Yes Anticipated discharge: Home Within: within 72 hours - Inpatient Certification Based on my medical assessment, after consideration of the patient's comorbidities, presenting symptoms, or acuity I expect that the services needed warrant INPATIENT care.: Yes I certify that my determination is in accordance with my understanding of Medicare's requirements for reasonable and necessary INPATIENT services [42 CFR 412.3e].: Yes Medical Necessity: Significant Comorbidiites Make Outpatient Treatment Too Risky , Need Close Monitoring Due to Risk of Patient Decompensation, Need For IV Fluids, Need for Pain Control
[2016-12-19] MEDS: OXYCODONE-ACETAMINOPHEN 5-325 MG TABLET PO PRN (17:30)
[2016-12-19] MEDS ORDERED: PANTOPRAZOLE SODIUM 40 MG VIAL IV ONE (17:30)
[2016-12-19] MEDS: MORPHINE SULFATE 10 MG/ML INJ IV PRN ×2 (18:55→23:23)
[2016-12-19] MEDS: NORMAL SALINE 1000 ML 1,000 ML IV PRN (19:25)
[2016-12-19 19:43] LABS: PROTHROMBIN TIME 14.3 SEC (11.4-15.4)
[2016-12-19 19:51] LABS: C-REACTIVE PROTEIN 29.8 mg/L (<10.0); MAGNESIUM 1.9 mg/dL (1.6-2.3); PHOSPHORUS 5.2 mg/dL (2.5-4.5)
[2016-12-19] MEDS: HEPARIN SOD (PORCINE) 5,000 UNIT/ML 1 ML SYRINGE SUBCUT SCH (21:51)
[2016-12-19] MEDS ORDERED: ENALAPRILAT DIHYDRATE INJ/PF 1.25 MG/1 ML SDV IV ONE (23:04)
[2016-12-19] MEDS: ENALAPRILAT DIHYDRATE INJ/PF 1.25 MG/1 ML SDV IV PRN (23:21)
[2016-12-20] MEDS: NORMAL SALINE 1000 ML 1,000 ML IV PRN ×3 (03:44→19:45)
[2016-12-20 06:18] LABS: ABSOLUTE LYMPHOCYTES (AUTO) 1.5 10^3/uL (0.5-4.7); ABSOLUTE MONOCYTES (AUTO) 1.1 10^3/uL (0.1-1.4); ABSOLUTE NEUT (AUTO) 6.7 10^3/uL (1.7-8.2); BASOPHILS % (AUTO) 0.3 % (0-2); EOSINOPHILS % (AUTO) 0.1 % (0-6); HEMATOCRIT 42.2 % (36.0-47.0); HEMOGLOBIN 13.5 g/dL (12.0-15.5); HGB HCT DIFFERENCE -1.7; LYMPHOCYTES % (AUTO) 16.2 % (13-45); MEAN CORPUSCULAR HEMOGLOBIN 26.9 pg (27.0-33.4); MEAN CORPUSCULAR HGB CONC 31.9 g/dL (32.0-36.0); MEAN CORPUSCULAR VOLUME 84 fl (80-97); MONOCYTES % (AUTO) 11.6 % (3-13); RED BLOOD COUNT 5.02 10^6/uL (3.72-5.28); RED CELL DISTRIBUTION WIDTH 15.5 % (11.5-14.0); SEGMENTED NEUTROPHILS % (AUTO) 71.8 % (42-78); WHITE BLOOD COUNT 9.3 10^3/uL (4.0-10.5)
[2016-12-20] MEDS: HEPARIN SOD (PORCINE) 5,000 UNIT/ML 1 ML SYRINGE SUBCUT SCH ×3 (06:28→22:09)
[2016-12-20] MEDS: MORPHINE SULFATE 10 MG/ML INJ IV PRN ×5 (06:44→23:09)
[2016-12-20] MEDS ORDERED: ENALAPRILAT DIHYDRATE INJ/PF 1.25 MG/1 ML SDV IV ONE (07:08)
--- NOTE | 2016-12-20 09:51 | PDOC PROGRESS REPORT ---
Subjective Progress Note for:: 12/20/16 Subjective:: reason for visit: f/u pancreatitis, acidosis, hospital course: JIHAN MORA is a 61 year old female presents to the ED from home with 2d hx of sharp, stabbing, constant, crescendo, non radiating epigastric pain asctd with nausea and vomiting, worse after eating, better with rest but unrelieved by her usual percocet at home. she has hx of pancreatitis with ?panc tail mass for which she is seen by GI in [place]. last endoscopy upper and lower was last year and reportedly normal. eval in ED shows elevated lipase and findings at bedside suggest recurrent pancreatitis. we were asked to admit. lipids were normal. she denies ETOH confirmed by her daughter at bedside. no new meds. ROS: no new events overnight, still having epigastric pain as described above, only change is pain is more tolerable otherwise same as above. no BM since admit and still nauseous but no emesis. denies chest pain, palpitations, fevers /chills. total 10systems reviewed, remaining systems negative. Physical Exam Vital Signs: Temp Pulse Resp BP Pulse Ox 97.8 F 69 16 165/82 H 100 12/20/16 07:25 12/20/16 07:25 12/20/16 07:25 12/20/16 07:25 12/20/16 04:00 General appearance: PRESENT: no acute distress, well-developed, well-nourished Eye exam: ABSENT: conjunctival injection, scleral icterus Mouth exam: PRESENT: moist, neck supple Neck exam: PRESENT: full ROM. ABSENT: JVD Respiratory exam: PRESENT: clear to auscultation marianna, unlabored. ABSENT: accessory muscle use Cardiovascular exam: PRESENT: RRR. ABSENT: systolic murmur Pulses: PRESENT: normal carotid pulses, normal radial pulses GI/Abdominal exam: PRESENT: hypoactive bowel sounds, soft, tenderness Extremities exam: ABSENT: calf tenderness, pedal edema Musculoskeletal exam: ABSENT: full ROM, tenderness Neurological exam: PRESENT: alert, awake, oriented to person, oriented to place , oriented to time, oriented to situation Psychiatric exam: PRESENT: appropriate affect, normal mood Results Laboratory Results: 12/20/16 05:30 12/19/16 12/19/16 12/20/16 19:05 19:05 05:30 WBC 9.3 RBC 5.02 Hgb 13.5 Hct 42.2 MCV 84 MCH 26.9 L MCHC 31.9 L RDW 15.5 H Plt Count 187 Seg Neutrophils % 71.8 Lymphocytes % 16.2 Monocytes % 11.6 Eosinophils % 0.1 Basophils % 0.3 Absolute Neutrophils 6.7 Absolute Lymphocytes 1.5 Absolute Monocytes 1.1 Absolute Eosinophils 0.0 Absolute Basophils 0.0 Lactic Acid 2.9 H Phosphorus 5.2 H Magnesium 1.9 C-Reactive Protein 29.8 H Impressions: Abdomen Ultrasound 12/19/16 10:31 IMPRESSION: Negative right upper quadrant ultrasound status post cholecystectomy. Assessment & Plan - Diagnosis (1) Pancreatitis Qualifiers: Chronicity: acute Pancreatitis type: unspecified pancreatitis type Acute pancreatitis complication: no infection or necrosis Qualified Code(s) : K85.90 - Acute pancreatitis without necrosis or infection, unspecified Is this a current diagnosis for this admission?: YesPlan: improved but not back to baseline, continue to trend CRP as more reliable marker of clinical course than enzymes. follow and replenish lytes. start clear liquids and monitor for response (2) Chronic renal insufficiency, stage III (moderate) Is this a current diagnosis for this admission?: YesPlan: Uni-kidney due to prior nephrectomy, baseline Scr around 1.6; follow labs (3) Metabolic acidosis Is this a current diagnosis for this admission?: YesPlan: likely related to above; lactic acid normal, continue to hydrate (4) Pancreatic mass Is this a current diagnosis for this admission?: YesPlan: depending on her clinical course, may need MRCP to further evaluate but would likely benefit from imaging either way at some point in near future. (5) Accelerated essential hypertension Is this a current diagnosis for this admission?: YesPlan: usual home regimen on hold due to possible confounder or cause for pancreatitis resulting in rebound HTN; will add norvasc and monitor/titrate to effect. - Time Time Spent with patient: 25-34 minutes
[2016-12-20] MEDS ORDERED: PANTOPRAZOLE SODIUM 40 MG VIAL IV SCH (10:00)
[2016-12-20 10:27] LABS: ALANINE AMINOTRANSFERASE 44 U/L (9-52); ALBUMIN 3.7 g/dL (3.5-5.0); ALKALINE PHOSPHATASE 249 U/L (38-126); ANION GAP 12 (5-19); ASPARTATE AMINO TRANSFERASE 47 U/L (14-36); BILIRUBIN,DIRECT 0.8 mg/dL (0.0-0.4); BILIRUBIN,TOTAL 1.2 mg/dL (0.2-1.3); BLOOD UREA NITROGEN 40 mg/dL (7-20); C-REACTIVE PROTEIN 48.2 mg/L (<10.0); CALCIUM 9.3 mg/dL (8.4-10.2); CARBON DIOXIDE 19 mmol/L (22-30); CHLORIDE 113 mmol/L (98-107); CREATININE RESULT 1.39 mg/dL (0.52-1.25); GLUCOSE 99 mg/dL (75-110); MAGNESIUM 1.9 mg/dL (1.6-2.3); PHOSPHORUS 3.9 mg/dL (2.5-4.5); POTASSIUM 4.6 mmol/L (3.6-5.0); SODIUM 143.7 mmol/L (137-145); TOTAL PROTEIN 8.2 g/dL (6.3-8.2)
[2016-12-20] MEDS: AMLODIPINE BESYLATE 10 MG TABLET PO SCH (10:41)
[2016-12-20] MEDS: ENALAPRILAT DIHYDRATE INJ/PF 1.25 MG/1 ML SDV IV PRN (14:44)
[2016-12-20] MEDS: OXYCODONE-ACETAMINOPHEN 5-325 MG TABLET PO PRN ×2 (17:17→22:09)
[2016-12-20] MEDS: METOPROLOL TARTRATE 25 MG TABLET PO SCH (22:08)
[2016-12-21] MEDS: OXYCODONE-ACETAMINOPHEN 5-325 MG TABLET PO PRN ×3 (02:17→17:10)
[2016-12-21] MEDS: NORMAL SALINE 1000 ML 1,000 ML IV PRN ×2 (02:18→19:27)
[2016-12-21] MEDS: MORPHINE SULFATE 10 MG/ML INJ IV PRN ×3 (06:23→19:27)
[2016-12-21] MEDS: HEPARIN SOD (PORCINE) 5,000 UNIT/ML 1 ML SYRINGE SUBCUT SCH ×3 (06:32→21:51)
[2016-12-21 07:36] LABS: HEMATOCRIT 37.5 % (36.0-47.0); HGB HCT DIFFERENCE -1.5; MEAN CORPUSCULAR HEMOGLOBIN 26.7 pg (27.0-33.4); MEAN CORPUSCULAR VOLUME 83 fl (80-97); RED CELL DISTRIBUTION WIDTH 15.4 % (11.5-14.0); WHITE BLOOD COUNT 11.9 10^3/uL (4.0-10.5)
[2016-12-21 07:50] LABS: BAND NEUTROPHILS % (MANUAL) 1 % (3-5); BASOPHILS % (MANUAL) 1 % (0-2); EOSINOPHILS % (MANUAL) 0 % (0-6); LYMPHOCYTES % (MANUAL) 7 % (13-45); TOTAL CELLS COUNTED 100
[2016-12-21 07:52] LABS: ANISOCYTOSIS SLIGHT; BURR CELLS SLIGHT; HYPOCHROMASIA SLIGHT; OVALOCYTES SLIGHT; POIKILOCYTOSIS 1+
[2016-12-21 07:53] LABS: ALANINE AMINOTRANSFERASE 43 U/L (9-52); ALBUMIN 3.2 g/dL (3.5-5.0); ALKALINE PHOSPHATASE 214 U/L (38-126); ANION GAP 9 (5-19); ASPARTATE AMINO TRANSFERASE 44 U/L (14-36); BILIRUBIN,DIRECT 0.8 mg/dL (0.0-0.4); BILIRUBIN,TOTAL 1.4 mg/dL (0.2-1.3); BLOOD UREA NITROGEN 33 mg/dL (7-20); CARBON DIOXIDE 18 mmol/L (22-30); CHLORIDE 111 mmol/L (98-107); CREATININE RESULT 1.46 mg/dL (0.52-1.25); GLUCOSE 98 mg/dL (75-110); POTASSIUM 4.2 mmol/L (3.6-5.0); SODIUM 137.8 mmol/L (137-145); TOTAL PROTEIN 7.2 g/dL (6.3-8.2)
[2016-12-21] MEDS ORDERED: NORMAL SALINE 1000 ML 1,000 ML IV ONE (08:59)
[2016-12-21] MEDS ORDERED: BISACODYL 10 MG SUPP.RECT PR PRN (09:07)
[2016-12-21] MEDS: PANTOPRAZOLE SODIUM 40 MG VIAL IV SCH ×2 (09:34→21:51)
[2016-12-21] MEDS: AMLODIPINE BESYLATE 10 MG TABLET PO SCH (09:41)
[2016-12-21] MEDS: METOPROLOL TARTRATE 25 MG TABLET PO SCH ×2 (09:53→21:51)
--- NOTE | 2016-12-21 10:05 | PDOC PROGRESS REPORT ---
Subjective Progress Note for:: 12/21/16 Subjective:: reason for visit: f/u pancreatitis, acidosis, hospital course: JIHAN MORA is a 61 year old female presents to the ED from home with 2d hx of sharp, stabbing, constant, crescendo, non radiating epigastric pain asctd with nausea and vomiting, worse after eating, better with rest but unrelieved by her usual percocet at home. she has hx of pancreatitis with ?panc tail mass for which she is seen by GI in [place]. last endoscopy upper and lower was last year and reportedly normal. eval in ED shows elevated lipase and findings at bedside suggest recurrent pancreatitis. we were asked to admit. lipids were normal. she denies ETOH confirmed by her daughter at bedside. no new meds. CRP still trending up. she also now reports a "boil" on her skin inquinal area that been there for several weeks, unresponsive to doxycycline given by her PCP with ascted sharp, stabbing pain, worse with palpation, no relieving factors, no other ascted symptoms, nonradiating. ROS: no new events overnight, still having epigastric pain as described above. still no BM and very little flatus since admit and still nauseous but no emesis. denies chest pain, palpitations, fevers/chills. total 10systems reviewed, remaining systems negative. Physical Exam Vital Signs: Temp Pulse Resp BP Pulse Ox 97.9 F 69 16 128/69 H 100 12/21/16 07:07 12/21/16 07:07 12/21/16 07:07 12/21/16 07:07 12/21/16 07:07 Intake & Output 12/20/16 12/21/16 12/22/16 06:59 06:59 06:59 Intake Total 2350 Balance 2350 Weight 88.6 kg General appearance: PRESENT: no acute distress, well-developed, well-nourished Eye exam: ABSENT: conjunctival injection, scleral icterus Mouth exam: PRESENT: dry mucosa, neck supple Neck exam: PRESENT: full ROM. ABSENT: JVD Respiratory exam: PRESENT: clear to auscultation marianna. ABSENT: accessory muscle use, unlabored Cardiovascular exam: PRESENT: RRR. ABSENT: systolic murmur Pulses: PRESENT: normal radial pulses Vascular exam: PRESENT: normal capillary refill GI/Abdominal exam: PRESENT: guarding, hypoactive bowel sounds, soft, tenderness - epigastric tender to percussion Extremities exam: ABSENT: calf tenderness, pedal edema Musculoskeletal exam: PRESENT: ambulatory, full ROM Neurological exam: PRESENT: alert, awake, oriented to person, oriented to place , oriented to time, oriented to situation Psychiatric exam: PRESENT: appropriate affect, normal mood Skin exam: PRESENT: other - soft tissue mass approx 5cm round and 1.5cm involving hair follicle in region of the mons pubis on left, fluctuant, tender, erythematous and angry appearing Results Laboratory Results: 12/21/16 07:04 12/21/16 07:04 12/20/16 12/21/16 12/21/16 09:57 07:04 07:04 WBC 11.9 H RBC 4.50 Hgb 12.0 Hct 37.5 MCV 83 MCH 26.7 L MCHC 32.0 RDW 15.4 H Plt Count 168 Seg Neutrophils % Not Reportable Lymphocytes % Not Reportable Monocytes % Not Reportable Eosinophils % Not Reportable Basophils % Not Reportable Absolute Neutrophils Not Reportable Absolute Lymphocytes Not Reportable Absolute Monocytes Not Reportable Absolute Eosinophils Not Reportable Absolute Basophils Not Reportable Sodium 143.7 137.8 Potassium 4.6 4.2 Chloride 113 H 111 H Carbon Dioxide 19 L 18 L Anion Gap 12 9 BUN 40 H 33 H Creatinine 1.39 H 1.46 H Est GFR ( Amer) 47 L 44 L Est GFR (Non-Af Amer) 39 L 37 L Glucose 99 98 Calcium 9.3 9.0 Phosphorus 3.9 Magnesium 1.9 Total Bilirubin 1.2 1.4 H AST 47 H 44 H ALT 44 43 Alkaline Phosphatase 249 H 214 H C-Reactive Protein 48.2 H 86.0 H Total Protein 8.2 7.2 Albumin 3.7 3.2 L Assessment & Plan - Diagnosis (1) Pancreatitis Qualifiers: Chronicity: acute Pancreatitis type: unspecified pancreatitis type Acute pancreatitis complication: no infection or necrosis Qualified Code(s) : K85.90 - Acute pancreatitis without necrosis or infection, unspecified Is this a current diagnosis for this admission?: YesPlan: worse with rising CRP and persistent pain and possible early ileus - ck MRCP, continue to trend CRP as more reliable marker of clinical course than enzymes. increase IVFs, follow and replenish lytes. continue clear liquids and monitor for decompensation. may need GI help if she continues to decline. 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 (6) GERD with esophagitis Is this a current diagnosis for this admission?: YesPlan: worsening reflux/heartburn with a hx of gastritis; increase PPI to bid and monitor for effect (7) Carbuncle and furuncle of other specified sites Is this a current diagnosis for this admission?: YesPlan: worse and failed outpt Tx; consult surgery for I&D, start empiric Rocephin and add vanco if worsens - Time Time Spent with patient: 35 or more minutes Medications reviewed and adjusted accordingly: Yes
[2016-12-21] MEDS: DOCUSATE SODIUM 100 MG CAPSULE PO SCH ×2 (11:06→17:10)
[2016-12-21] MEDS: CEFTRIAXONE 1 GM/D5W RTU 50 ML IV SCH (11:07)
[2016-12-22] MEDS: NORMAL SALINE 1000 ML 1,000 ML IV PRN ×3 (00:41→20:48)
[2016-12-22] MEDS: MORPHINE SULFATE 10 MG/ML INJ IV PRN (03:52)
--- NOTE | 2016-12-22 04:33 | CONSULTATION REPORT E ---
Consultation Report NAME: JIHAN MORA : 1955 AGE: 61Y DATE: 12/21/2016 207 A TO: ROGERS RIBEIRO M.D. FROM: Requesting Physician REASON FOR CONSULTATION: Patient with abscess/boil on the left groin. HISTORY OF PRESENT ILLNESS: This is a 61-year-old female admitted for pancreatitis. She was noted to have a "boil" on her left inguinal area. The patient claims this has been ongoing for the past month and apparently unresponsive to doxycycline given by her PCP. REVIEW OF SYSTEMS: CONSTITUTIONAL: Denies any chills or fever. No visual or hearing problems. CHEST: No chest pains. No cough. GASTROINTESTINAL: Abdominal pains, left groin pain, diarrhea, nausea, and vomiting. GENITOURINARY: No dysuria. EXTREMITIES: No joints pains. NEUROLOGIC: Absent abnormal gait. PSYCHIATRIC: Absent anxiety or depression. ENDOCRINE: No cold intolerance. HEMATOLOGIC: Absent easy bleeding or bruising. INTEGUMENTARY: Complaining of pain in the left groin area for the past month. SOCIAL HISTORY: Denies smoking, drinking or drug abuse. FAMILY HISTORY: Positive for coronary artery disease and hypertension. ALLERGIES: 1. BACTRIM. 2. ASPIRIN. PHYSICAL EXAMINATION: GENERAL: A well-developed and well-nourished 61-year-old female, afebrile. HEENT: The neck is supple. No adenopathy. No scleral icterus. Head is atraumatic and normocephalic. RESPIRATORY: Clear to auscultation. CARDIAC: Regular sinus rhythm. ABDOMEN: Soft with mild tender epigastric area. GROIN: There is a left groin tenderness with mild fluctuation roughly measuring about 2.5 x 1.5 cm, but mostly firm area and fluctuant areas, may be about 1 cm in diameter that is mildly tender. EXTREMITIES: No edema. IMPRESSION: 1. HIDRADENITIS SUPPURATIVA WITH ABSCESS OF THE LEFT GROIN. 2. PANCREATITIS. PLAN: 1. Continue with IV antibiotics. 2. Once pancreatitis practically resolve, I can do I and D of the left groin under local anesthesia with sedation hopefully within the next 48 hours. DICTATING PHYSICIAN: ROGERS RIBEIRO M.D. [id number] PHY#: [id number] ID: [id number] JOB#: [id number] ACCT: [id number] cc:ROGERS RIBEIRO M.D. >
[2016-12-22] MEDS: OXYCODONE-ACETAMINOPHEN 5-325 MG TABLET PO PRN ×2 (06:04→11:06)
[2016-12-22] MEDS: HEPARIN SOD (PORCINE) 5,000 UNIT/ML 1 ML SYRINGE SUBCUT SCH ×3 (06:04→21:40)
[2016-12-22] MEDS ORDERED: GLUCAGON,HUMAN RECOMB 1 MG INJ SUBCUT PRN ×2 (06:30→10:19)
[2016-12-22] MEDS ORDERED: DEXTROSE 40% GEL 15 GM TUBE PO PRN ×4 (06:30→10:19)
[2016-12-22] MEDS ORDERED: DEXTROSE 50%-WATER 25 GM/50 ML DISP.SYRIN IV PRN ×4 (06:30→10:19)
[2016-12-22 07:10] LABS: ABSOLUTE BASOPHILS # (AUTO) 0.1 10^3/uL (0.0-0.2); ABSOLUTE LYMPHOCYTES (AUTO) 1.1 10^3/uL (0.5-4.7); ABSOLUTE MONOCYTES (AUTO) 0.5 10^3/uL (0.1-1.4); BASOPHILS % (AUTO) 0.6 % (0-2); EOSINOPHILS % (AUTO) 0.1 % (0-6); HEMATOCRIT 35.2 % (36.0-47.0); HEMOGLOBIN 11.2 g/dL (12.0-15.5); HGB HCT DIFFERENCE -1.6; LYMPHOCYTES % (AUTO) 11.7 % (13-45); MEAN CORPUSCULAR HEMOGLOBIN 26.7 pg (27.0-33.4); MEAN CORPUSCULAR HGB CONC 31.9 g/dL (32.0-36.0); MEAN CORPUSCULAR VOLUME 84 fl (80-97); RED CELL DISTRIBUTION WIDTH 15.7 % (11.5-14.0); SEGMENTED NEUTROPHILS % (AUTO) 82.6 % (42-78); WHITE BLOOD COUNT 9.7 10^3/uL (4.0-10.5)
[2016-12-22 08:00] LABS: BLOOD UREA NITROGEN 27 mg/dL (7-20); CALCIUM 8.6 mg/dL (8.4-10.2); GLUCOSE 76 mg/dL (75-110)
[2016-12-22 08:01] LABS: ALANINE AMINOTRANSFERASE 38 U/L (9-52); ALBUMIN 2.5 g/dL (3.5-5.0); ALKALINE PHOSPHATASE 200 U/L (38-126); ANION GAP 9 (5-19); ASPARTATE AMINO TRANSFERASE 28 U/L (14-36); BILIRUBIN,DIRECT 0.7 mg/dL (0.0-0.4); BILIRUBIN,TOTAL 0.9 mg/dL (0.2-1.3); CARBON DIOXIDE 14 mmol/L (22-30); CHLORIDE 116 mmol/L (98-107); MAGNESIUM 1.8 mg/dL (1.6-2.3); POTASSIUM 4.2 mmol/L (3.6-5.0); SODIUM 139.1 mmol/L (137-145); TOTAL PROTEIN 6.2 g/dL (6.3-8.2)
[2016-12-22 08:19] LABS: C-REACTIVE PROTEIN 163.1 mg/L (<10.0)
[2016-12-22] MEDS ORDERED: LIDOCAINE 1% INJ-PF (10 MG/ML) 30 ML SDV INJ PRN (08:41)
[2016-12-22] MEDS: AMLODIPINE BESYLATE 10 MG TABLET PO SCH (09:15)
[2016-12-22] MEDS: METOPROLOL TARTRATE 25 MG TABLET PO SCH ×2 (09:15→21:40)
[2016-12-22] MEDS: DOCUSATE SODIUM 100 MG CAPSULE PO SCH ×2 (09:15→17:49)
[2016-12-22] MEDS: CEFTRIAXONE 1 GM/D5W RTU 50 ML IV SCH (09:16)
[2016-12-22] MEDS: PANTOPRAZOLE SODIUM 40 MG VIAL IV SCH ×2 (09:16→21:40)
[2016-12-22 11:01] LABS: LIPASE 127.8 U/L (23-300)
[2016-12-22] MEDS ORDERED: PROMETHAZINE HCL 25 MG TABLET PO ONE ×2 (11:17→12:00)
[2016-12-22] MEDS ORDERED: MORPHINE SULFATE 10 MG/ML INJ IM PRN (11:17)
--- NOTE | 2016-12-22 13:38 | OPERATIVE REPORT E ---
Operative Report NAME: JIHAN MORA : 1955 AGE: 61Y DATE OF SURGERY: 12/21/2016 ROOM: 207 PREOPERATIVE DIAGNOSIS: Left groin abscess consistent with complex furuncle. POSTOPERATIVE DIAGNOSIS: Left groin abscess consistent with complex furuncle. PROCEDURE: Excisional debridement with scissors, 15 blade, and pickups of a 2.4 cm abscess left groin. SURGEON: PAIGE RETANA M.D. ANESTHESIA: Lidocaine 1% without epinephrine. COMPLICATIONS: None. ESTIMATED BLOOD LOSS: Scant. DRAINS: None. TISSUE REMOVED OR ALTERED: Nonviable skin and granulation tissue. SUMMARY OF PROCEDURE: The patient was operated on at bedside on the second floor. Left groin was exposed, prepped and draped in sterile fashion. Surgical plan and surgical timeout were conducted. The skin and deep subcutaneous tissue was anesthetized with approximately 9 mL of 1% lidocaine without epinephrine. The abscess in the mid left groin along the inguinal crease was excised in an elliptical fashion and approximately 2 x 4 cm wedge of skin was removed. The underlying granulation tissue was debrided sharply with 15-blade, and tenotomy scissors, and the use of curette to clean out the chronic granulation tissue in the base of the wound. We felt that there were no tracks, but did not probe overly aggressively as the patient had limited pain threshold. At this point, I felt that appropriate drainage had been performed at bedside. Wound irrigated with saline, then a 4 x 4 applied. Patient tolerated the procedure well. DICTATING PHYSICIAN: PAIGE RETANA M.D. [id number] PHY#: [id number] ID: [id number] JOB#: [id number] ACCT: [id number] cc:PAIGE RETANA M.D. >
--- NOTE | 2016-12-22 14:06 | PDOC PROGRESS REPORT ---
Subjective Progress Note for:: 12/22/16 Subjective:: reason for visit: f/u pancreatitis, acidosis, hospital course: JIHAN MORA is a 61 year old female presents to the ED from home with 2d hx of sharp, stabbing, constant, crescendo, non radiating epigastric pain asctd with nausea and vomiting, worse after eating, better with rest but unrelieved by her usual percocet at home. she has hx of pancreatitis with ?panc tail mass for which she is seen by GI in [place]. last endoscopy upper and lower was last year and reportedly normal. eval in ED shows elevated lipase and findings at bedside suggest recurrent pancreatitis. we were asked to admit. lipids were normal. she denies ETOH confirmed by her daughter at bedside. no new meds. her condition really hasn't improved, in fact she is showing signs of developing ileus as burping/belching, increasing heartburn symptoms, persistent unrelenting epigastric pain in spite of PPI bid and NPO status and now no stool or flatus since admission. I spoke with Dr Bojorquez (sp?) GI in [place] who reports colonoscopy 08/2016 showed diverticular disease but nothing acute and in 05/2016 she had EUS that shows a benign duodenal polyp removed and distal tortuous pancreatic duct, small cyst with calcifications suspicious for previous or chronic pancreatitis and recommended repeat EUS in one year. he hasn't seen her since August and really had nothing further to add. she also now reports a "boil" on her skin inquinal area that been there for several weeks, unresponsive to doxycycline given by her PCP with ascted sharp, stabbing pain, worse with palpation, no relieving factors, no other ascted symptoms, nonradiating. ROS: no new events overnight, still having epigastric pain no better. still no BM andno flatus since admit and still nauseous but no emesis. denies chest pain, palpitations, fevers/chills. total 10systems reviewed, remaining systems negative. Physical Exam Vital Signs: Temp Pulse Resp BP Pulse Ox 98.6 F 71 15 141/71 H 100 12/22/16 12:11 12/22/16 12:11 12/22/16 12:11 12/22/16 12:11 12/22/16 12:11 Intake & Output 12/21/16 12/22/16 12/23/16 06:59 06:59 06:59 Intake Total 2350 250 Balance 2350 250 Weight 88.6 kg 91 kg General appearance: PRESENT: no acute distress, well-developed, well-nourished Head exam: PRESENT: atraumatic, normocephalic Eye exam: PRESENT: EOMI. ABSENT: conjunctival injection, scleral icterus Mouth exam: PRESENT: dry mucosa, neck supple Neck exam: PRESENT: full ROM. ABSENT: JVD Respiratory exam: PRESENT: clear to auscultation marianna. ABSENT: accessory muscle use Cardiovascular exam: PRESENT: RRR. ABSENT: systolic murmur Pulses: PRESENT: normal radial pulses, +1 pedal pulses bilateral GI/Abdominal exam: PRESENT: distended - mild, guarding - voluntary with epigastric palpation, hypoactive bowel sounds, soft, tenderness - sharp epigastric. ABSENT: rebound, rigid Extremities exam: ABSENT: calf tenderness, pedal edema Musculoskeletal exam: PRESENT: ambulatory, full ROM Neurological exam: PRESENT: alert, awake, oriented to person, oriented to place , oriented to time, oriented to situation Psychiatric exam: PRESENT: appropriate affect, normal mood Skin exam: PRESENT: dry, warm Results Laboratory Results: 12/22/16 06:49 12/22/16 06:49 12/22/16 12/22/16 12/22/16 06:49 06:49 06:49 WBC 9.7 RBC 4.20 Hgb 11.2 L Hct 35.2 L MCV 84 MCH 26.7 L MCHC 31.9 L RDW 15.7 H Plt Count 164 Seg Neutrophils % 82.6 H Lymphocytes % 11.7 L Monocytes % 5.0 Eosinophils % 0.1 Basophils % 0.6 Absolute Neutrophils 8.0 Absolute Lymphocytes 1.1 Absolute Monocytes 0.5 Absolute Eosinophils 0.0 Absolute Basophils 0.1 Sodium 139.1 Potassium 4.2 Chloride 116 H Carbon Dioxide 14 L Anion Gap 9 BUN 27 H Creatinine 1.40 H Est GFR ( Amer) 47 L Est GFR (Non-Af Amer) 38 L Glucose 76 Calcium 8.6 Phosphorus 3.0 Magnesium 1.8 Total Bilirubin 0.9 AST 28 ALT 38 Alkaline Phosphatase 200 H C-Reactive Protein 163.1 H Total Protein 6.2 L Albumin 2.5 L Amylase 94 Lipase 127.8 Impressions: Abdomen Ultrasound 12/19/16 10:31 IMPRESSION: Negative right upper quadrant ultrasound status post cholecystectomy. Abdomen MRI 12/21/16 00:00 IMPRESSION: No evidence of common bile duct stone status post cholecystectomy. Status: Image reviewed by me Assessment & Plan - Diagnosis (1) GERD with esophagitis Is this a current diagnosis for this admission?: YesPlan: worse with increasing reflux/heartburn in spite of PPI to bid, has reported a hx of gastritis; need GI help, available tomorrow so consult placed for in the morning. ck ct a/p with oral contrast only due to renal insuff and continue to trend CRP and other labs. (2) Pancreatitis Qualifiers: Chronicity: acute Pancreatitis type: unspecified pancreatitis type Acute pancreatitis complication: no infection or necrosis Qualified Code(s) : K85.90 - Acute pancreatitis without necrosis or infection, unspecified Is this a current diagnosis for this admission?: YesPlan: now unclear this is source of her pain and abnl labs as MRCP showed no inflammation. other eval as noted (3) Chronic renal insufficiency, stage III (moderate) Is this a current diagnosis for this admission?: Yes (4) Metabolic acidosis Is this a current diagnosis for this admission?: YesPlan: unchanged; non AG so likely related to above; lactic acid normal, continue to hydrate (5) Pancreatic mass Is this a current diagnosis for this admission?: YesPlan: MRCP as noted above; has outpt plan to f/u with GI in 05/2017 for repeat EUS (6) Accelerated essential hypertension Is this a current diagnosis for this admission?: YesPlan: worse, likely due to persistent pain; usual home regimen on hold due to possible confounder or cause for pancreatitis resulting in rebound HTN; continue norvasc and toprol and monitor/titrate to effect. (7) Carbuncle and furuncle of other specified sites Is this a current diagnosis for this admission?: YesPlan: s/p surgical I&D at bedside; continue IV abx (8) Ileus Is this a current diagnosis for this admission?: YesPlan: chg back to NPO and ck ct a/p; may need surgical assistance here as well depending on clinical course - Time Time Spent with patient: 35 or more minutes Medications reviewed and adjusted accordingly: Yes
--- NOTE | 2016-12-22 14:45 | RADIOLOGY REPORT (SQ) ---
EXAM DESCRIPTION: CT ABD/PELVIS ORAL ONLY COMPLETED DATE/TIME: 12/22/2016 2:21 pm REASON FOR STUDY: abd pain; oral contrast only!!! COMPARISON: 07/12/2015. TECHNIQUE: CT scan of the abdomen and pelvis performed with oral contrast and no intravenous contras t. Images reviewed with lung, soft tissue, and bone windows. Reconstructed coronal and sagittal MPR i mages reviewed. All images stored on PACS. All CT scanners at this facility use dose modulation, iterative reconstruction, and/or weight based d osing when appropriate to reduce radiation dose to as low as reasonably achievable (ALARA). [facility]: Dose Right [facility]: CareDose [facility]: Dose Right [facility]: Teradose 4D [facility]: Mozenda RADIATION DOSE: 11.27 mGy. LIMITATIONS: None. FINDINGS: LOWER CHEST: Small pleural effusions with a few linear densities in the lung bases. NON-CONTRASTED LIVER, SPLEEN, ADRENALS: Evaluation limited by lack of IV contrast. No identified sign ificant masses. PANCREAS: No masses. Somewhat indistinct appearance throughout the pancreas. No focal fluid collect ions. GALLBLADDER: Surgically absent. RIGHT KIDNEY AND URETER: No suspicious masses. Assessment limited by lack of IV contrast. No signif icant calcifications. No hydronephrosis or hydroureter. LEFT KIDNEY AND URETER: Surgically absent. AORTA AND RETROPERITONEUM: No aneurysm. No retroperitoneal masses or adenopathy. BOWEL AND PERITONEAL CAVITY: Previous colonic surgery. Mild small bowel dilation. Gas and fluid in the colon. No obvious masses or inflammatory changes. No free fluid. APPENDIX: Surgically absent. PELVIS, BLADDER, AND ABDOMINAL WALL: No abnormal pelvic masses. No abdominal wall hernias. Surgical clips in the anterior abdominal wall. Bladder unremarkable. BONES: No significant findings. OTHER: No other significant finding. IMPRESSION: 1. MILD SMALL BOWEL DILATION, POSSIBLY MILD ILEUS. MECHANICAL OBSTRUCTION UNLIKELY. 2. SOMEWHAT INDISTINCT APPEARANCE OF THE PANCREAS. CANNOT EXCLUDE PANCREATITIS. NO FOCAL LESIONS. 3. SURGICAL CHANGES DESCRIBED. NO POSTOPERATIVE COMPLICATION VISUALIZED. 4. SMALL PLEURAL EFFUSIONS WITH BASILAR ATELECTASIS. TECHNICAL DOCUMENTATION: JOB ID: [id number] Quality ID # [id number]: Final reports with documentation of one or more dose reduction techniques (e.g., Au tomated exposure control, adjustment of the mA and/or kV according to patient size, use of iterative reconstruction technique) 2010 [email or web address]- All Rights Reserved
--- NOTE | 2016-12-22 15:51 | RADIOLOGY REPORT (SQ) ---
EXAM DESCRIPTION: PICC INSERTION; FLUORO/CV PLACEMENT; U/S GUIDE FOR VASCULAR ACCESS COMPLETED DATE/TIME: 12/22/2016 3:20 pm REASON FOR STUDY: no access, NPO for pancreatitis; NO ACCESS COMPARISON: None. FLUOROSCOPY TIME: 0.4 minutes. 1 images saved to PACS. TECHNIQUE: Fluoroscopic and ultrasound guided PICC placement. LIMITATIONS: None. PROCEDURE: After written consent and assessment were obtained, the patient was brought into the fluo roscopy room and place supine on the table. Ultrasound was used on the patient's right arm for PICC access. The right arm was prepped and draped in a sterile fashion along with the ultrasound probe. Th e entry site was anesthetized with 1% lidocaine. A 21 gauge 7 cm needle was advanced through the skin and into the basilic vein under live ultrasound guidance. An ultrasound image was saved to PACS con firming access site. A .018 guide wire was then inserted through the needle and into the venous syst em. The needle was the removed and an 11 blade scalpel was used to make a 1cm skin incision. A 5 fr peel-away sheath was advanced over the wire and into the venous system. A measurement was then made u sing the existing wire and live fluoroscopic guidance. The wire was then removed and the trimmed. The PICC was advanced through the peel-away sheath and into the venous system. The peel-away sheath was removed and the catheter was adhered to the patients arm with a stat lock. The catheter was then aspi rated and flushed and a sterile bandage was placed over the access site. A fluoroscopic spot image w as saved to PACS confirming the catheter tip within the superior vena cava. IMPRESSION: SUCCESSFUL PLACEMENT OF A 5 FR DUAL LUMEN 32 CM PICC IN THE RIGHT BASILIC VEIN. COMMENT: Patient medication list reviewed: Yes- Quality ID# [id number]:Eligible professional attests to doc umenting in the medical record they obtained, updated, or reviewed the patient's current medications. . Quality ID 145: Final reports for procedures using fluoroscopy that document radiation exposure lois isatu, or exposure time and number of fluorographic images (if radiation exposure indices are not avail able) Quality ID #76: The patient was prepped and draped using maximum sterile barrier technique including cap, mask, sterile gown, sterile gloves, a large sterile sheet, hand hygiene, and 2% Chlorhexidine fo r cutaneous antisepsis. When ultrasound is used, sterile ultrasound techniques are followed requiring sterile gel and sterile probes. TECHNICAL DOCUMENTATION: JOB ID: [id number] [employer]- All Rights Reserved
[2016-12-23 06:38] LABS: ABSOLUTE LYMPHOCYTES (AUTO) 1.2 10^3/uL (0.5-4.7); ABSOLUTE MONOCYTES (AUTO) 0.6 10^3/uL (0.1-1.4); ABSOLUTE NEUT (AUTO) 5.6 10^3/uL (1.7-8.2); BASOPHILS % (AUTO) 0.3 % (0-2); EOSINOPHILS % (AUTO) 0.3 % (0-6); HEMATOCRIT 31.3 % (36.0-47.0); HEMOGLOBIN 9.9 g/dL (12.0-15.5); HGB HCT DIFFERENCE -1.6; MEAN CORPUSCULAR HEMOGLOBIN 26.6 pg (27.0-33.4); MEAN CORPUSCULAR HGB CONC 31.8 g/dL (32.0-36.0); MEAN CORPUSCULAR VOLUME 84 fl (80-97); RED BLOOD COUNT 3.73 10^6/uL (3.72-5.28); RED CELL DISTRIBUTION WIDTH 15.8 % (11.5-14.0); SEGMENTED NEUTROPHILS % (AUTO) 75.4 % (42-78); WHITE BLOOD COUNT 7.5 10^3/uL (4.0-10.5)
[2016-12-23] MEDS: HEPARIN SOD (PORCINE) 5,000 UNIT/ML 1 ML SYRINGE SUBCUT SCH ×3 (06:39→22:19)
[2016-12-23 07:01] LABS: ALANINE AMINOTRANSFERASE 39 U/L (9-52); ALBUMIN 2.5 g/dL (3.5-5.0); ALKALINE PHOSPHATASE 175 U/L (38-126); ANION GAP 11 (5-19); ASPARTATE AMINO TRANSFERASE 25 U/L (14-36); BILIRUBIN,DIRECT 0.5 mg/dL (0.0-0.4); BILIRUBIN,TOTAL 0.6 mg/dL (0.2-1.3); BLOOD UREA NITROGEN 22 mg/dL (7-20); C-REACTIVE PROTEIN 86.8 mg/L (<10.0); CALCIUM 8.5 mg/dL (8.4-10.2); CARBON DIOXIDE 16 mmol/L (22-30); CHLORIDE 112 mmol/L (98-107); CREATININE RESULT 1.57 mg/dL (0.52-1.25); GLUCOSE 64 mg/dL (75-110); LIPASE 97.6 U/L (23-300); POTASSIUM 3.5 mmol/L (3.6-5.0); SODIUM 138.7 mmol/L (137-145); TOTAL PROTEIN 5.9 g/dL (6.3-8.2)
[2016-12-23] MEDS: MORPHINE SULFATE 10 MG/ML INJ IV PRN ×3 (08:52→20:00)
[2016-12-23] MEDS: NORMAL SALINE 1000 ML 1,000 ML IV PRN (08:53)
[2016-12-23] MEDS: AMLODIPINE BESYLATE 10 MG TABLET PO SCH (10:02)
[2016-12-23] MEDS: METOPROLOL TARTRATE 25 MG TABLET PO SCH ×2 (10:03→22:17)
[2016-12-23] MEDS: CEFTRIAXONE 1 GM/D5W RTU 50 ML IV SCH (10:03)
[2016-12-23] MEDS: DOCUSATE SODIUM 100 MG CAPSULE PO SCH ×2 (10:11→17:40)
[2016-12-23] MEDS: PANTOPRAZOLE SODIUM 40 MG VIAL IV SCH (10:32)
--- NOTE | 2016-12-23 13:15 | PDOC PROGRESS REPORT ---
Subjective Progress Note for:: 12/23/16 Subjective:: Shavonne Mcgraw is a 61 year old woman with a history of pancreatitis, GERD and chronic kidney disease. She was admitted with epigastric abdominal pain. Her initial lipase was 860 and has gradually reverted to normal. Initial MRCP was negative for pancreatic disease. A CT scan of 12/22/2016 shows a "somewhat indistinct appearance of the pancreas. Cannot exclude pancreatitis." The patient has had persistent epigastric pain. He coughs it, she feels some radiation up into the chest. Remains tender in the epigastrium. Has been on PPI twice daily In addition he has had a mild intestinal ileus. However this morning she has had 2 soft bowel movements the bowel sounds are reportedly positive. She has been very slow to progress. GI consultation is pending. Physical Exam Vital Signs: Temp Pulse Resp BP Pulse Ox 97.8 F 67 18 133/70 H 99 12/23/16 11:08 12/23/16 11:08 12/23/16 11:08 12/23/16 11:08 12/23/16 11:08 Intake & Output 12/22/16 12/23/16 12/24/16 06:59 06:59 06:59 Intake Total 250 Balance 250 Weight 91 kg 88.6 kg General appearance: PRESENT: no acute distress, well-developed, well-nourished Head exam: PRESENT: atraumatic, normocephalic Eye exam: PRESENT: conjunctiva pink, EOMI, PERRLA. ABSENT: scleral icterus Ear exam: PRESENT: normal external ear exam Mouth exam: PRESENT: moist, tongue midline Neck exam: ABSENT: carotid bruit, JVD, lymphadenopathy, thyromegaly Respiratory exam: PRESENT: clear to auscultation marianna. ABSENT: rales, rhonchi, wheezes Cardiovascular exam: PRESENT: RRR. ABSENT: diastolic murmur, rubs, systolic murmur Pulses: PRESENT: normal dorsalis pedis pul Vascular exam: PRESENT: normal capillary refill GI/Abdominal exam: PRESENT: normal bowel sounds, soft, tenderness - tender in epigastrium. ABSENT: distended, guarding, mass, organolmegaly, rebound Rectal exam: PRESENT: deferred Extremities exam: PRESENT: full ROM. ABSENT: calf tenderness, clubbing, pedal edema Neurological exam: PRESENT: alert, awake, oriented to person, oriented to place , oriented to time, oriented to situation, CN II-XII grossly intact. ABSENT: motor sensory deficit Psychiatric exam: PRESENT: appropriate affect, normal mood. ABSENT: homicidal ideation, suicidal ideation Skin exam: PRESENT: dry, intact, warm. ABSENT: cyanosis, rash Results Laboratory Results: 12/23/16 06:15 12/23/16 06:15 12/23/16 12/23/16 06:15 06:15 WBC 7.5 RBC 3.73 Hgb 9.9 L Hct 31.3 L MCV 84 MCH 26.6 L MCHC 31.8 L RDW 15.8 H Plt Count 171 Seg Neutrophils % 75.4 Lymphocytes % 16.0 Monocytes % 8.0 Eosinophils % 0.3 Basophils % 0.3 Absolute Neutrophils 5.6 Absolute Lymphocytes 1.2 Absolute Monocytes 0.6 Absolute Eosinophils 0.0 Absolute Basophils 0.0 Sodium 138.7 Potassium 3.5 L Chloride 112 H Carbon Dioxide 16 L Anion Gap 11 BUN 22 H Creatinine 1.57 H Est GFR ( Amer) 41 L Est GFR (Non-Af Amer) 34 L Glucose 64 L Calcium 8.5 Total Bilirubin 0.6 AST 25 ALT 39 Alkaline Phosphatase 175 H C-Reactive Protein 86.8 H Total Protein 5.9 L Albumin 2.5 L Lipase 97.6 Impressions: Abdomen Ultrasound 12/19/16 10:31 IMPRESSION: Negative right upper quadrant ultrasound status post cholecystectomy. Abdomen MRI 12/21/16 00:00 IMPRESSION: No evidence of common bile duct stone status post cholecystectomy. Abdomen/Pelvis CT 12/22/16 00:00 IMPRESSION: 1. MILD SMALL BOWEL DILATION, POSSIBLY MILD ILEUS. MECHANICAL OBSTRUCTION UNLIKELY. 2. SOMEWHAT INDISTINCT APPEARANCE OF THE PANCREAS. CANNOT EXCLUDE PANCREATITIS. NO FOCAL LESIONS. 3. SURGICAL CHANGES DESCRIBED. NO POSTOPERATIVE COMPLICATION VISUALIZED. 4. SMALL PLEURAL EFFUSIONS WITH BASILAR ATELECTASIS. Guidance Fluoroscopy 12/22/16 00:00 IMPRESSION: SUCCESSFUL PLACEMENT OF A 5 FR DUAL LUMEN 32 CM PICC IN THE RIGHT BASILIC VEIN. Interventional Vascular Procedure 12/22/16 00:00 IMPRESSION: SUCCESSFUL PLACEMENT OF A 5 FR DUAL LUMEN 32 CM PICC IN THE RIGHT BASILIC VEIN. PICC Line Insertion 12/22/16 00:00 IMPRESSION: SUCCESSFUL PLACEMENT OF A 5 FR DUAL LUMEN 32 CM PICC IN THE RIGHT BASILIC VEIN. Assessment & Plan - Diagnosis (1) GERD with esophagitis Is this a current diagnosis for this admission?: YesPlan: The patient continues to have epigastric pain and tenderness symptoms consistent with acid reflux. Continues on PPI twice daily. Is currently n.p.o. but we will advanced to a clear liquid diet. GI consultation is pending. (2) Pancreatitis Qualifiers: Chronicity: acute Pancreatitis type: unspecified pancreatitis type Acute pancreatitis complication: no infection or necrosis Qualified Code(s) : K85.90 - Acute pancreatitis without necrosis or infection, unspecified Is this a current diagnosis for this admission?: YesPlan: She has a history of pancreatitis. She was admitted with elevated lipase of 860. Lipase has gradually reported to normal. CT abdomen of 12/22/2016 suggests a mild pancreatitis. Continue to monitor lipase. (3) Ileus Is this a current diagnosis for this admission?: YesPlan: There was a question of intestinal ileus. The patient has passed 2 bowel movements, has active bowel sounds, and no abdominal distention. If there was illness, it has resolved. (4) Chronic renal insufficiency, stage III (moderate) Is this a current diagnosis for this admission?: YesPlan: Renal function tests are stable. We will continue to monitor. (5) Accelerated essential hypertension Is this a current diagnosis for this admission?: YesPlan: The blood pressure is now under better control and stable. We will continue current medications. (6) Carbuncle and furuncle of other specified sites Is this a current diagnosis for this admission?: YesPlan: The patient is status post a 12/21/2016 bedside surgical debridement of left groin abscess. We will continue local wound care.
[2016-12-23] MEDS ORDERED: MIDAZOLAM 2 MG/2 ML INJ ONE (16:40)
[2016-12-23] MEDS ORDERED: NALOXONE HCL INJ/PF 0.4 MG/1 ML SDV ONE (16:40)
[2016-12-23] MEDS ORDERED: GLUCAGON,HUMAN RECOMB 1 MG INJ ONE (16:41)
[2016-12-23] MEDS ORDERED: FLUMAZENIL INJ 0.5 MG/5 ML VIAL IV ONE (16:41)
[2016-12-23] MEDS ORDERED: FENTANYL CITRATE INJ/PF 100 MCG/2 ML AMPUL ONE ×2 (16:41)
[2016-12-23] MEDS ORDERED: EPINEPHRINE INJ 1 MG/10 ML DISP.SYRIN ONE (16:41)
--- NOTE | 2016-12-23 18:43 | OPERATIVE REPORT E ---
Operative Report NAME: JIHAN MORA : 1955 AGE: 61Y DATE OF SURGERY: 12/23/2016 ROOM: 207 PREOPERATIVE DIAGNOSIS: Epigastric pain. POSTOPERATIVE DIAGNOSIS: Normal EGD. OPERATION: EGD. SURGEON: TRACI TABARES M.D. ANESTHESIA: Versed 2 mg, fentanyl 100 mcg IV push. TISSUE REMOVED OR ALTERED: Antral biopsy. PROCEDURE: After informed consent was obtained from the patient, conscious sedation was achieved. The scope was inserted into the esophagus and advanced into the stomach. The duodenum was normal. The gastric antrum, body, fundus, and esophagus were normal. Biopsies were taken from the antrum for pathology. The patient tolerated the procedure well. PLAN: Will try dicyclomine for recurrent abdominal pain. DICTATING PHYSICIAN: TRACI TABARES M.D. [id number] PHY#: [id number] ID: [id number] JOB#: [id number] ACCT: [id number] cc:TRACI TABARES M.D. >
--- NOTE | 2016-12-23 19:33 | CONSULTATION REPORT E ---
Consultation Report NAME: JIHAN MORA : 1955 AGE: 61Y DATE: 12/23/2016 207 A TO: TRACI TABARES M.D. FROM: Requesting Physician HISTORY OF PRESENT ILLNESS: A 61-year-old patient admitted with pancreatitis. She came into the hospital with upper abdominal pain that started about a week ago. The pain is constant with occasional exacerbation after eating. She feels better when she takes a narcotic. The pain is associated with vomiting and some diarrhea. She has a chronic history of alternating diarrhea and constipation. On admission, her lipase was 800 with an AST of 42, alkaline phosphatase of 264, and a normal bilirubin. Her LFTs have remained in the same range since. Her lipase was back to normal on 12/22/2016 at 1:27. Her ultrasound on 12/19/2016 was normal. A CAT scan of her abdomen on 12/22/2016 showed normal pancreas and no dilated ducts. An MRI on 12/21/2016 showed no evidence of common bile duct stone. According to the patient, she had an episode of pancreatitis last year and had been evaluated by Dr. Bojorquez, magnetic grinder operator in [place]. She had a colonoscopy in August of this year which showed diverticular disease, and an endoscopic ultrasound that showed a tortuous distal pancreatic duct with a small cyst with calcification suspicious for chronic pancreatitis. His plan was to repeat a UES in 1 year. The patient denies alcohol use. PAST MEDICAL HISTORY: 1. Pancreatitis. 2. CHF. 3. Coronary artery disease. 4. Hypertension. 5. Hyperlipidemia. PAST SURGICAL HISTORY: 1. Complicated hernia surgery. 2. Cholecystectomy. REVIEW OF SYSTEMS: Other than the above is noncontributory. CURRENT MEDICATIONS: Listed on her chart. PHYSICAL EXAMINATION: GENERAL: Shows a lady in no distress. VITAL SIGNS: She has a blood pressure of 133/70, heart rate of 68. HEENT: No pallor. No jaundice. Oropharynx normal. NECK: No bruit. No JVD. CHEST: No deformity. LUNGS: Clear. ABDOMEN: Soft with some tenderness. Liver and spleen not palpable. Bowel sounds active. NEUROLOGIC: Grossly nonfocal. EXTREMITIES: No edema. DIAGNOSTIC DATA: Laboratory tests on 12/21/2016 showed an hemoglobin and hematocrit of 12 and 37, white count of 9.7, platelets of 168,000. INR 1.07. Chronically elevated creatinine of 1.57. ASSESSMENT AND PLAN: Epigastric pain. She has had this for the last week, and she denies previous chronic abdominal pain. Her lipase was elevated on admission but less than 3 times normal. Her ultrasound, CAT scan, and MRI did not show evidence for acute pancreatitis. I doubt this is pancreatitis. She does have evidence of chronic pancreatitis on a previous endoscopic ultrasound. She denies alcohol abuse. She will undergo an EGD for further evaluation. She does have symptoms consistent with IBS which may also explain her symptoms. We can try her on dicyclomine if EGD is unremarkable. Her recent colonoscopy was unremarkable except for diverticulosis. DICTATING PHYSICIAN: TRACI TABARES M.D. [id number] PHY#: [id number] ID: [id number] JOB#: [id number] ACCT: [id number] cc:TRACI TABARES M.D. >
[2016-12-24] MEDS: HEPARIN SOD (PORCINE) 5,000 UNIT/ML 1 ML SYRINGE SUBCUT SCH ×3 (06:00→22:09)
[2016-12-24 07:00] LABS: ABSOLUTE MONOCYTES (AUTO) 0.4 10^3/uL (0.1-1.4); ABSOLUTE NEUT (AUTO) 4.4 10^3/uL (1.7-8.2); BASOPHILS % (AUTO) 0.5 % (0-2); EOSINOPHILS % (AUTO) 0.7 % (0-6); HEMATOCRIT 29.8 % (36.0-47.0); HEMOGLOBIN 9.7 g/dL (12.0-15.5); HGB HCT DIFFERENCE -0.7; LYMPHOCYTES % (AUTO) 17.5 % (13-45); MEAN CORPUSCULAR HEMOGLOBIN 26.9 pg (27.0-33.4); MEAN CORPUSCULAR HGB CONC 32.5 g/dL (32.0-36.0); MEAN CORPUSCULAR VOLUME 83 fl (80-97); RED CELL DISTRIBUTION WIDTH 15.7 % (11.5-14.0); SEGMENTED NEUTROPHILS % (AUTO) 74.3 % (42-78); WHITE BLOOD COUNT 5.9 10^3/uL (4.0-10.5)
[2016-12-24 07:19] LABS: ANION GAP 10 (5-19); BLOOD UREA NITROGEN 20 mg/dL (7-20); CALCIUM 8.7 mg/dL (8.4-10.2); CARBON DIOXIDE 17 mmol/L (22-30); CHLORIDE 111 mmol/L (98-107); CREATININE RESULT 1.42 mg/dL (0.52-1.25); GLUCOSE 82 mg/dL (75-110); LIPASE 158.1 U/L (23-300); POTASSIUM 3.3 mmol/L (3.6-5.0); SODIUM 138.4 mmol/L (137-145)
[2016-12-24] MEDS: METOPROLOL TARTRATE 25 MG TABLET PO SCH ×2 (09:41→22:05)
[2016-12-24] MEDS: AMLODIPINE BESYLATE 10 MG TABLET PO SCH (09:41)
[2016-12-24] MEDS: DOCUSATE SODIUM 100 MG CAPSULE PO SCH ×2 (09:42→18:25)
[2016-12-24] MEDS: CEFTRIAXONE 1 GM/D5W RTU 50 ML IV SCH (09:42)
--- NOTE | 2016-12-24 12:48 | PDOC PROGRESS REPORT ---
Subjective Progress Note for:: 12/24/16 Subjective:: Shavonne Mcgraw is a 61 year old woman with a history of pancreatitis, GERD and chronic kidney disease. She was admitted with epigastric abdominal pain. Her initial lipase was 860 and has gradually reverted to normal. Initial MRCP was negative for pancreatic disease. A CT scan of 12/22/2016 shows a "somewhat indistinct appearance of the pancreas. Cannot exclude pancreatitis." The patient has had persistent epigastric pain. When she coughs, she feels some radiation of pain up into the chest. Has been on PPI twice daily Mild intestinal ileus has improved. She has had bowel movements and admits to passing flatus. The bowel sounds are positive. She has been very slow to progress. GI consultation is now followinToday, she admits to feeling better, with less pain. She tolerates clear liquids. She is still worried about her bowels. Physical Exam Vital Signs: Temp Pulse Resp BP Pulse Ox 99.1 F 82 16 131/79 H 98 12/24/16 11:55 12/24/16 11:55 12/24/16 11:55 12/24/16 11:55 12/24/16 11:55 Intake & Output 12/23/16 12/24/16 12/25/16 06:59 06:59 06:59 Intake Total 100 Balance 100 Weight 88.6 kg 88.1 kg Additional comments: General appearance: PRESENT: no acute distress, well-developed, well-nourished Head exam: PRESENT: atraumatic, normocephalic Eye exam: PRESENT: conjunctiva pink, EOMI, PERRLA. ABSENT: scleral icterus Ear exam: PRESENT: normal external ear exam Mouth exam: PRESENT: moist, tongue midline Neck exam: ABSENT: carotid bruit, JVD, lymphadenopathy, thyromegaly Respiratory exam: PRESENT: clear to auscultation marianna. ABSENT: rales, rhonchi, wheezes Cardiovascular exam: PRESENT: RRR. ABSENT: diastolic murmur, rubs, systolic murmur Pulses: PRESENT: normal dorsalis pedis pul Vascular exam: PRESENT: normal capillary refill GI/Abdominal exam: PRESENT: normal bowel sounds, soft, much less tender in epigastrium. ABSENT: distended, guarding, mass, organolmegaly, rebound Rectal exam: PRESENT: deferred Extremities exam: PRESENT: full ROM. ABSENT: calf tenderness, clubbing, pedal edema Neurological exam: PRESENT: alert, awake, oriented to person, oriented to place , oriented to time, oriented to situation, CN II-XII grossly intact. ABSENT: motor sensory deficit Psychiatric exam: PRESENT: appropriate affect, normal mood. ABSENT: homicidal ideation, suicidal ideation Skin exam: PRESENT: dry, intact, warm. ABSENT: cyanosis, rash Results Laboratory Results: 12/24/16 06:25 12/24/16 06:25 12/24/16 12/24/16 06:25 06:25 WBC 5.9 RBC 3.60 L Hgb 9.7 L Hct 29.8 L MCV 83 MCH 26.9 L MCHC 32.5 RDW 15.7 H Plt Count 189 Seg Neutrophils % 74.3 Lymphocytes % 17.5 Monocytes % 7.0 Eosinophils % 0.7 Basophils % 0.5 Absolute Neutrophils 4.4 Absolute Lymphocytes 1.0 Absolute Monocytes 0.4 Absolute Eosinophils 0.0 Absolute Basophils 0.0 Sodium 138.4 Potassium 3.3 L Chloride 111 H Carbon Dioxide 17 L Anion Gap 10 BUN 20 Creatinine 1.42 H Est GFR ( Amer) 46 L Est GFR (Non-Af Amer) 38 L Glucose 82 Calcium 8.7 Lipase 158.1 Impressions: Abdomen Ultrasound 12/19/16 10:31 IMPRESSION: Negative right upper quadrant ultrasound status post cholecystectomy. Abdomen MRI 12/21/16 00:00 IMPRESSION: No evidence of common bile duct stone status post cholecystectomy. Abdomen/Pelvis CT 12/22/16 00:00 IMPRESSION: 1. MILD SMALL BOWEL DILATION, POSSIBLY MILD ILEUS. MECHANICAL OBSTRUCTION UNLIKELY. 2. SOMEWHAT INDISTINCT APPEARANCE OF THE PANCREAS. CANNOT EXCLUDE PANCREATITIS. NO FOCAL LESIONS. 3. SURGICAL CHANGES DESCRIBED. NO POSTOPERATIVE COMPLICATION VISUALIZED. 4. SMALL PLEURAL EFFUSIONS WITH BASILAR ATELECTASIS. Guidance Fluoroscopy 12/22/16 00:00 IMPRESSION: SUCCESSFUL PLACEMENT OF A 5 FR DUAL LUMEN 32 CM PICC IN THE RIGHT BASILIC VEIN. Interventional Vascular Procedure 12/22/16 00:00 IMPRESSION: SUCCESSFUL PLACEMENT OF A 5 FR DUAL LUMEN 32 CM PICC IN THE RIGHT BASILIC VEIN. PICC Line Insertion 12/22/16 00:00 IMPRESSION: SUCCESSFUL PLACEMENT OF A 5 FR DUAL LUMEN 32 CM PICC IN THE RIGHT BASILIC VEIN. Assessment & Plan - Diagnosis (1) GERD with esophagitis Is this a current diagnosis for this admission?: YesPlan: There is much less epigastric pain and tenderness. She remains on PPI twice daily. She had a normal EGD yesterday. Bentyl was started. Will advance her diet. (2) Pancreatitis Qualifiers: Chronicity: acute Pancreatitis type: unspecified pancreatitis type Acute pancreatitis complication: no infection or necrosis Qualified Code(s) : K85.90 - Acute pancreatitis without necrosis or infection, unspecified Is this a current diagnosis for this admission?: YesPlan: This is chemically resolved. She is now much less tender in the epigastrium. As above, will advance her diet. No (3) Ileus Is this a current diagnosis for this admission?: YesPlan: Resolved. (4) Chronic renal insufficiency, stage III (moderate) Is this a current diagnosis for this admission?: YesPlan: Renal function is stable at stage III chronic kidney disease. (5) Accelerated essential hypertension Is this a current diagnosis for this admission?: YesPlan: Blood pressure is in good control on current Rx. (6) Carbuncle and furuncle of other specified sites Is this a current diagnosis for this admission?: YesPlan: Status post a 12/21/2016 bedside surgical debridement of the left groin abscess. Continue local wound care.
[2016-12-24] MEDS: OXYCODONE-ACETAMINOPHEN 5-325 MG TABLET PO PRN ×2 (13:56→19:41)
[2016-12-24] MEDS: MORPHINE SULFATE 10 MG/ML INJ IV PRN (21:22)
[2016-12-25] MEDS: HEPARIN SOD (PORCINE) 5,000 UNIT/ML 1 ML SYRINGE SUBCUT SCH ×3 (06:00→22:41)
[2016-12-25] MEDS ORDERED: NORMAL SALINE 10 ML SDV (AFTER EACH USE) IV PRN (07:57)
[2016-12-25] MEDS: DOCUSATE SODIUM 100 MG CAPSULE PO SCH ×2 (10:37→20:03)
[2016-12-25] MEDS: METOPROLOL TARTRATE 25 MG TABLET PO SCH ×2 (10:37→22:24)
[2016-12-25] MEDS: AMLODIPINE BESYLATE 10 MG TABLET PO SCH (10:38)
[2016-12-25] MEDS: CEFTRIAXONE 1 GM/D5W RTU 50 ML IV SCH (10:38)
[2016-12-25] MEDS: MORPHINE SULFATE 10 MG/ML INJ IV PRN ×2 (10:40→14:48)
--- NOTE | 2016-12-25 13:46 | PDOC PROGRESS REPORT ---
Subjective Progress Note for:: 12/25/16 Subjective:: Shavonne Mcgraw is a 61 year old woman with a history of pancreatitis, GERD and chronic kidney disease. She was admitted with epigastric abdominal pain. Her initial lipase was 860 and has gradually reverted to normal. Initial MRCP was negative for pancreatic disease. A CT scan of 12/22/2016 shows a "somewhat indistinct appearance of the pancreas. Cannot exclude pancreatitis." The patient has had persistent epigastric pain. When she coughs, she feels some radiation of pain up into the chest. Has been on PPI twice daily Mild intestinal ileus has resolved. She has had bowel movements and admits to passing flatus. The bowel sounds are positive. She has been very slow to progress. GI is now following. Yesterday she felt better, was tolerating clear liquids, and her diet was advanced to a bland diet. Today she has worsened epigastric abdominal pain. Physical Exam Vital Signs: Temp Pulse Resp BP Pulse Ox 98.1 F 78 18 139/71 H 98 12/25/16 11:28 12/25/16 11:28 12/25/16 11:28 12/25/16 11:28 12/25/16 11:28 Intake & Output 12/24/16 12/25/16 12/26/16 06:59 06:59 06:59 Intake Total 100 120 Balance 100 120 Weight 88.1 kg 87.5 kg Additional comments: General appearance: PRESENT: no acute distress, well-developed, well-nourished Head exam: PRESENT: atraumatic, normocephalic Eye exam: PRESENT: conjunctiva pink, EOMI, PERRLA. ABSENT: scleral icterus Ear exam: PRESENT: normal external ear exam Mouth exam: PRESENT: moist, tongue midline Neck exam: ABSENT: carotid bruit, JVD, lymphadenopathy, thyromegaly Respiratory exam: PRESENT: clear to auscultation marianna. ABSENT: rales, rhonchi, wheezes Cardiovascular exam: PRESENT: RRR. ABSENT: diastolic murmur, rubs, systolic murmur Pulses: PRESENT: normal dorsalis pedis pul Vascular exam: PRESENT: normal capillary refill GI/Abdominal exam: PRESENT: normal bowel sounds, soft, more tender in epigastrium. ABSENT: distended, guarding, mass, organolmegaly, rebound Rectal exam: PRESENT: deferred Extremities exam: PRESENT: full ROM. ABSENT: calf tenderness, clubbing, pedal edema Neurological exam: PRESENT: alert, awake, oriented to person, oriented to place , oriented to time, oriented to situation, CN II-XII grossly intact. ABSENT: motor sensory deficit Psychiatric exam: PRESENT: appropriate affect, normal mood. ABSENT: homicidal ideation, suicidal ideation Skin exam: PRESENT: dry, intact, warm. ABSENT: cyanosis, rash Results Laboratory Results: 12/24/16 06:25 12/24/16 06:25 12/24/16 13:25 Stool Occult Blood POSITIVE Impressions: Abdomen Ultrasound 12/19/16 10:31 IMPRESSION: Negative right upper quadrant ultrasound status post cholecystectomy. Abdomen MRI 12/21/16 00:00 IMPRESSION: No evidence of common bile duct stone status post cholecystectomy. Abdomen/Pelvis CT 12/22/16 00:00 IMPRESSION: 1. MILD SMALL BOWEL DILATION, POSSIBLY MILD ILEUS. MECHANICAL OBSTRUCTION UNLIKELY. 2. SOMEWHAT INDISTINCT APPEARANCE OF THE PANCREAS. CANNOT EXCLUDE PANCREATITIS. NO FOCAL LESIONS. 3. SURGICAL CHANGES DESCRIBED. NO POSTOPERATIVE COMPLICATION VISUALIZED. 4. SMALL PLEURAL EFFUSIONS WITH BASILAR ATELECTASIS. Guidance Fluoroscopy 12/22/16 00:00 IMPRESSION: SUCCESSFUL PLACEMENT OF A 5 FR DUAL LUMEN 32 CM PICC IN THE RIGHT BASILIC VEIN. Interventional Vascular Procedure 12/22/16 00:00 IMPRESSION: SUCCESSFUL PLACEMENT OF A 5 FR DUAL LUMEN 32 CM PICC IN THE RIGHT BASILIC VEIN. PICC Line Insertion 12/22/16 00:00 IMPRESSION: SUCCESSFUL PLACEMENT OF A 5 FR DUAL LUMEN 32 CM PICC IN THE RIGHT BASILIC VEIN. Assessment & Plan - Diagnosis (1) GERD with esophagitis Is this a current diagnosis for this admission?: YesPlan: She remains on PPI twice daily. She had a normal EGD yesterday. Bentyl was started. Pain is worse today, after trying a bland diet yesterday. Will reduce her diet to full liquids. (2) Pancreatitis Qualifiers: Chronicity: acute Pancreatitis type: unspecified pancreatitis type Acute pancreatitis complication: no infection or necrosis Qualified Code(s) : K85.90 - Acute pancreatitis without necrosis or infection, unspecified Is this a current diagnosis for this admission?: YesPlan: This is chemically resolved. She is now again more tender in the epigastrium. As above, will reduce her diet to full liquids. Will recheck labs including lipase in AM. (3) Ileus Is this a current diagnosis for this admission?: YesPlan: Resolved. (4) Chronic renal insufficiency, stage III (moderate) Is this a current diagnosis for this admission?: YesPlan: Renal function is stable at stage III chronic kidney disease. Recheck in AM. (5) Accelerated essential hypertension Is this a current diagnosis for this admission?: YesPlan: Blood pressure is in good control on current Rx. (6) Carbuncle and furuncle of other specified sites Is this a current diagnosis for this admission?: Yes
[2016-12-25] MEDS: NORMAL SALINE 10 ML SDV (SCHEDULED) IV SCH ×2 (20:03→22:23)
[2016-12-26] MEDS: HEPARIN SOD (PORCINE) 5,000 UNIT/ML 1 ML SYRINGE SUBCUT SCH ×3 (05:48→21:43)
[2016-12-26 06:24] LABS: ABSOLUTE EOSINOPHILS # (AUTO) 0.1 10^3/uL (0.0-0.6); ABSOLUTE LYMPHOCYTES (AUTO) 1.4 10^3/uL (0.5-4.7); ABSOLUTE MONOCYTES (AUTO) 0.6 10^3/uL (0.1-1.4); BASOPHILS % (AUTO) 0.6 % (0-2); EOSINOPHILS % (AUTO) 1.4 % (0-6); HEMATOCRIT 30.4 % (36.0-47.0); HEMOGLOBIN 9.8 g/dL (12.0-15.5); LYMPHOCYTES % (AUTO) 22.5 % (13-45); MEAN CORPUSCULAR HEMOGLOBIN 26.5 pg (27.0-33.4); MEAN CORPUSCULAR HGB CONC 32.4 g/dL (32.0-36.0); MEAN CORPUSCULAR VOLUME 82 fl (80-97); MONOCYTES % (AUTO) 9.2 % (3-13); RED CELL DISTRIBUTION WIDTH 15.2 % (11.5-14.0); SEGMENTED NEUTROPHILS % (AUTO) 66.3 % (42-78); WHITE BLOOD COUNT 6.1 10^3/uL (4.0-10.5)
[2016-12-26 06:34] LABS: ANION GAP 10 (5-19); BLOOD UREA NITROGEN 13 mg/dL (7-20); CALCIUM 8.6 mg/dL (8.4-10.2); CARBON DIOXIDE 22 mmol/L (22-30); CHLORIDE 109 mmol/L (98-107); CREATININE RESULT 1.29 mg/dL (0.52-1.25); GLUCOSE 100 mg/dL (75-110); LIPASE 266.1 U/L (23-300); POTASSIUM 3.2 mmol/L (3.6-5.0); SODIUM 141.4 mmol/L (137-145)
[2016-12-26] MEDS: CEFTRIAXONE 1 GM/D5W RTU 50 ML IV SCH (09:17)
[2016-12-26] MEDS: DOCUSATE SODIUM 100 MG CAPSULE PO SCH ×2 (09:17→17:27)
[2016-12-26] MEDS: AMLODIPINE BESYLATE 10 MG TABLET PO SCH (09:17)
[2016-12-26] MEDS: NORMAL SALINE 10 ML SDV (SCHEDULED) IV SCH ×2 (09:18→21:32)
[2016-12-26] MEDS: METOPROLOL TARTRATE 25 MG TABLET PO SCH ×2 (10:00→21:33)
--- NOTE | 2016-12-26 10:28 | PDOC PROGRESS REPORT ---
Subjective Progress Note for:: 12/26/16 Subjective:: Shavonne Mcgraw is a 61 year old woman with a history of pancreatitis, GERD and chronic kidney disease. She was admitted with epigastric abdominal pain. Her initial lipase was 860 and has gradually reverted to normal. Initial MRCP was negative for pancreatic disease. A CT scan of 12/22/2016 shows a "somewhat indistinct appearance of the pancreas. Cannot exclude pancreatitis." The patient has had persistent, intermittent epigastric pain. The radiation of pain up into the chest when she coughs is better. Has been on PPI twice daily. Mild intestinal ileus has resolved. She has had bowel movements and admits to passing flatus. The bowel sounds are positive. She has been very slow to progress. GI is now following. 12/[address] Swain started Benty for IBS. Two days ago she had aggravation of her pain with a bland diet. Yesterday she tolerated full liquids, though she cut back to clear liquids when she started feeling a hint of epigastric pain. This morning she feels well. Lipase has crept back up but is still within normal range. Physical Exam Vital Signs: Temp Pulse Resp BP Pulse Ox 98.3 F 83 18 119/76 100 12/26/16 08:18 12/26/16 08:18 12/26/16 08:18 12/26/16 08:18 12/26/16 08:18 Intake & Output 12/25/16 12/26/16 12/27/16 06:59 06:59 06:59 Intake Total 120 1280 Output Total 400 Balance 120 880 Weight 88.5 kg Additional comments: General appearance: PRESENT: no acute distress, well-developed, well-nourished Head exam: PRESENT: atraumatic, normocephalic Eye exam: PRESENT: conjunctiva pink, EOMI, PERRLA. ABSENT: scleral icterus Ear exam: PRESENT: normal external ear exam Mouth exam: PRESENT: moist, tongue midline Neck exam: ABSENT: carotid bruit, JVD, lymphadenopathy, thyromegaly Respiratory exam: PRESENT: clear to auscultation marianna. ABSENT: rales, rhonchi, wheezes Cardiovascular exam: PRESENT: RRR. ABSENT: diastolic murmur, rubs, systolic murmur Pulses: PRESENT: normal dorsalis pedis pul Vascular exam: PRESENT: normal capillary refill GI/Abdominal exam: PRESENT: normal bowel sounds, soft, today is non-tender in epigastrium. ABSENT: distended, guarding, mass, organolmegaly, rebound Rectal exam: PRESENT: deferred Extremities exam: PRESENT: full ROM. ABSENT: calf tenderness, clubbing, pedal edema Neurological exam: PRESENT: alert, awake, oriented to person, oriented to place , oriented to time, oriented to situation, CN II-XII grossly intact. ABSENT: motor sensory deficit Psychiatric exam: PRESENT: appropriate affect, normal mood. ABSENT: homicidal ideation, suicidal ideation Skin exam: PRESENT: dry, intact, warm. ABSENT: cyanosis, rash Results Laboratory Results: 12/26/16 06:00 12/26/16 06:00 12/26/16 12/26/16 06:00 06:00 WBC 6.1 RBC 3.70 L Hgb 9.8 L Hct 30.4 L MCV 82 MCH 26.5 L MCHC 32.4 RDW 15.2 H Plt Count 196 Seg Neutrophils % 66.3 Lymphocytes % 22.5 Monocytes % 9.2 Eosinophils % 1.4 Basophils % 0.6 Absolute Neutrophils 4.0 Absolute Lymphocytes 1.4 Absolute Monocytes 0.6 Absolute Eosinophils 0.1 Absolute Basophils 0.0 Sodium 141.4 Potassium 3.2 L Chloride 109 H Carbon Dioxide 22 Anion Gap 10 BUN 13 Creatinine 1.29 H Est GFR ( Amer) 51 L Est GFR (Non-Af Amer) 42 L Glucose 100 Calcium 8.6 Lipase 266.1 Impressions: Abdomen Ultrasound 12/19/16 10:31 IMPRESSION: Negative right upper quadrant ultrasound status post cholecystectomy. Abdomen MRI 12/21/16 00:00 IMPRESSION: No evidence of common bile duct stone status post cholecystectomy. Abdomen/Pelvis CT 12/22/16 00:00 IMPRESSION: 1. MILD SMALL BOWEL DILATION, POSSIBLY MILD ILEUS. MECHANICAL OBSTRUCTION UNLIKELY. 2. SOMEWHAT INDISTINCT APPEARANCE OF THE PANCREAS. CANNOT EXCLUDE PANCREATITIS. NO FOCAL LESIONS. 3. SURGICAL CHANGES DESCRIBED. NO POSTOPERATIVE COMPLICATION VISUALIZED. 4. SMALL PLEURAL EFFUSIONS WITH BASILAR ATELECTASIS. Guidance Fluoroscopy 12/22/16 00:00 IMPRESSION: SUCCESSFUL PLACEMENT OF A 5 FR DUAL LUMEN 32 CM PICC IN THE RIGHT BASILIC VEIN. Interventional Vascular Procedure 12/22/16 00:00 IMPRESSION: SUCCESSFUL PLACEMENT OF A 5 FR DUAL LUMEN 32 CM PICC IN THE RIGHT BASILIC VEIN. PICC Line Insertion 12/22/16 00:00 IMPRESSION: SUCCESSFUL PLACEMENT OF A 5 FR DUAL LUMEN 32 CM PICC IN THE RIGHT BASILIC VEIN. Assessment & Plan - Diagnosis (1) Pancreatitis Qualifiers: Chronicity: acute Pancreatitis type: unspecified pancreatitis type Acute pancreatitis complication: no infection or necrosis Qualified Code(s) : K85.90 - Acute pancreatitis without necrosis or infection, unspecified Is this a current diagnosis for this admission?: YesPlan: This is chemically resolved, though the Lipase did rise a bit these past two days. She is now again less tender in the epigastrium. Will continue current full liquids and monitor Lipase. (2) GERD with esophagitis Is this a current diagnosis for this admission?: YesPlan: She remains on PPI twice daily. She had a normal EGD 12/23. Bentyl was started. Pain is better today and she is non-tender in the epigastrium. Will continue full liquids as above. (3) Ileus Is this a current diagnosis for this admission?: YesPlan: Resolved. (4) Chronic renal insufficiency, stage III (moderate) Is this a current diagnosis for this admission?: YesPlan: Renal function is stable at stage III chronic kidney disease. (5) Accelerated essential hypertension Is this a current diagnosis for this admission?: YesPlan: Blood pressure is in good control on current Rx. (6) Carbuncle and furuncle of other specified sites Is this a current diagnosis for this admission?: YesPlan: Status post a 12/21/2016 bedside surgical debridement of the left groin abscess. Continue local wound care.
[2016-12-26] MEDS ORDERED: POTASSIUM CHLORIDE 10 MEQ TABLET.SA PO ONE (11:00)
[2016-12-26] MEDS: POTASSIUM CHLORIDE 10 MEQ TABLET.SA PO SCH (21:33)
[2016-12-27] MEDS: HEPARIN SOD (PORCINE) 5,000 UNIT/ML 1 ML SYRINGE SUBCUT SCH (05:44)
[2016-12-27 08:43] LABS: ANION GAP 12 (5-19); BLOOD UREA NITROGEN 11 mg/dL (7-20); CALCIUM 9.2 mg/dL (8.4-10.2); CARBON DIOXIDE 20 mmol/L (22-30); CHLORIDE 110 mmol/L (98-107); CREATININE RESULT 1.29 mg/dL (0.52-1.25); GLUCOSE 109 mg/dL (75-110); POTASSIUM 4.3 mmol/L (3.6-5.0)
--- NOTE | 2016-12-27 10:12 | PDOC DISCHARGE SUMMARY ---
General - Admit/Disc Date/PCP Admission Date/Primary Care Provider: 12/19/16 16:33 Discharge Date: 12/27/16 - Discharge Diagnosis (1) Pancreatitis Is this a current diagnosis for this admission?: YesSummary: The patient has a past history of recurrent pancreatitis. She presented with epigastric abdominal pain elevated lipase of 870. She also has a history of GERD and complained of pain spreading up into her chest whenever she coughed. She was kept n.p.o. and her lipase gradually resolved to normal. Her diet was slowly advanced and the lipase amber a bit along with a recurrence of her abdominal pain. The diet was reduced and thereafter slowly advanced. Patient is aware of the dietary aggravation and is now advancing the diet very slowly according to symptoms. Of note, with the resumption of the diet, the lipase did rise but not to abnormal levels. The patient was also treated with PPI twice daily. There was gradual improvement in the epigastric abdominal pain. By the time of discharge, she was nontender. The patient was seen in consultation by silk brusher Dr. Swain who performed an EGD on 12/23/2016. It was normal. The patient will be discharged home. She will stop her chlorthalidone. She will continue losartan for her hypertension as before, and metoprolol has been added. She will continue omeprazole 20 mg daily. She will follow-up with her primary care physician. (2) GERD with esophagitis Is this a current diagnosis for this admission?: YesSummary: As above. (3) Ileus Is this a current diagnosis for this admission?: YesSummary: The patient had a minimal symptoms of possible ileus. This rapidly resolved spontaneously. Over several days prior to discharge she was moving her bowels and had active bowel sounds. The abdomen was never distended. (4) Chronic renal insufficiency, stage III (moderate) Is this a current diagnosis for this admission?: YesSummary: Her renal function remained stable throughout the hospitalization. (5) Accelerated essential hypertension Is this a current diagnosis for this admission?: YesSummary: Blood pressure was adequately controlled throughout the hospitalization. (6) Carbuncle and furuncle of other specified sites Is this a current diagnosis for this admission?: YesSummary: The patient is status post a 12/21/2016 bedside surgical debridement of a left groin abscess. He will continue local wound care. She will follow up with her primary care physician. - Additional Information Resuscitation Status: Full Code Discharge Diet: Other (Comments) - advance slowly as directed Discharge Activity: Activity As Tolerated Home Medications: Oxycodone HCl/Acetaminophen [Percocet 5-325 mg Tablet] 1 - 2 tab PO Q6H PRN #12 tablet 12/26/14 Cholecalciferol (Vitamin D3) [Vitamin D3 1000 Unit Tablet] 1,000 unit PO DAILY 12/19/16 Ferrous Sulfate [Iron] 325 mg PO DAILYP PRN 12/19/16 Losartan Potassium [Cozaar 50 mg Tablet] 50 mg PO DAILY 12/19/16 Acetaminophen [Tylenol 325 mg Tablet] 650 mg PO Q4HP PRN #0 tablet 12/27/16 Metoprolol Tartrate [Lopressor 25 mg Tablet] 25 mg PO Q12 #60 tablet 12/27/16 Omeprazole 20 mg PO DAILY #30 capsule. 12/27/16 History of Present Illness History of Present Illness: Shavonne Mcgraw is a 61 year old woman with a history of pancreatitis, GERD and chronic kidney disease. She was admitted with epigastric abdominal pain. Her initial lipase was 860 and has gradually reverted to normal. Initial MRCP was negative for pancreatic disease. A CT scan of 12/22/2016 shows a "somewhat indistinct appearance of the pancreas. Cannot exclude pancreatitis." Hospital Course Hospital Course: She was kept n.p.o. and her lipase gradually resolved to normal. Her diet was slowly advanced and the lipase amber a bit along with a recurrence of her abdominal pain. The diet was reduced and thereafter slowly advanced. Patient is aware of the dietary aggravation and is now advancing the diet very slowly according to symptoms. Of note, with the resumption of the diet, the lipase did rise but not to abnormal levels. The patient was also treated with PPI twice daily. There was gradual improvement in the epigastric abdominal pain. By the time of discharge, she was nontender. The patient was seen in consultation by silk brusher Dr. Swain who performed an EGD on 12/23/2016. It was normal. The patient will be discharged home. She knows to gradually advance her diet according to symptoms. We will stop her chlorthalidone. She will continue omeprazole 20 mg daily. She will follow-up with her primary care physician. Physical Exam Vital Signs: Temp Pulse Resp BP Pulse Ox 97.8 F 61 16 128/78 H 100 12/27/16 07:33 12/27/16 07:33 12/27/16 07:33 12/27/16 07:33 12/27/16 07:33 Intake & Output 12/26/16 12/27/16 12/28/16 06:59 06:59 06:59 Intake Total 1280 650 Output Total 400 Balance 880 650 Weight 88.5 kg 85.8 kg Additional comments: General appearance: PRESENT: no acute distress, well-developed, well-nourished Head exam: PRESENT: atraumatic, normocephalic Eye exam: PRESENT: conjunctiva pink, EOMI, PERRLA. ABSENT: scleral icterus Ear exam: PRESENT: normal external ear exam Mouth exam: PRESENT: moist, tongue midline Neck exam: ABSENT: carotid bruit, JVD, lymphadenopathy, thyromegaly Respiratory exam: PRESENT: clear to auscultation marianna. ABSENT: rales, rhonchi, wheezes Cardiovascular exam: PRESENT: RRR. ABSENT: diastolic murmur, rubs, systolic murmur Pulses: PRESENT: normal dorsalis pedis pul Vascular exam: PRESENT: normal capillary refill GI/Abdominal exam: PRESENT: normal bowel sounds, soft, today is non-tender in epigastrium. ABSENT: distended, guarding, mass, organolmegaly, rebound Rectal exam: PRESENT: deferred Extremities exam: PRESENT: full ROM. ABSENT: calf tenderness, clubbing, pedal edema Neurological exam: PRESENT: alert, awake, oriented to person, oriented to place , oriented to time, oriented to situation, CN II-XII grossly intact. ABSENT: motor sensory deficit Psychiatric exam: PRESENT: appropriate affect, normal mood. ABSENT: homicidal ideation, suicidal ideation Skin exam: PRESENT: dry, intact, warm. ABSENT: cyanosis, rash Results Laboratory Results: 12/26/16 06:00 12/27/16 07:43 12/27/16 07:43 Sodium 142.0 Potassium 4.3 Chloride 110 H Carbon Dioxide 20 L Anion Gap 12 BUN 11 Creatinine 1.29 H Est GFR ( Amer) 51 L Est GFR (Non-Af Amer) 42 L Glucose 109 Calcium 9.2 Lipase 325.0 H Impressions: Abdomen Ultrasound 12/19/16 10:31 IMPRESSION: Negative right upper quadrant ultrasound status post cholecystectomy. Abdomen MRI 12/21/16 00:00 IMPRESSION: No evidence of common bile duct stone status post cholecystectomy. Abdomen/Pelvis CT 12/22/16 00:00 IMPRESSION: 1. MILD SMALL BOWEL DILATION, POSSIBLY MILD ILEUS. MECHANICAL OBSTRUCTION UNLIKELY. 2. SOMEWHAT INDISTINCT APPEARANCE OF THE PANCREAS. CANNOT EXCLUDE PANCREATITIS. NO FOCAL LESIONS. 3. SURGICAL CHANGES DESCRIBED. NO POSTOPERATIVE COMPLICATION VISUALIZED. 4. SMALL PLEURAL EFFUSIONS WITH BASILAR ATELECTASIS. Guidance Fluoroscopy 12/22/16 00:00 IMPRESSION: SUCCESSFUL PLACEMENT OF A 5 FR DUAL LUMEN 32 CM PICC IN THE RIGHT BASILIC VEIN. Interventional Vascular Procedure 12/22/16 00:00 IMPRESSION: SUCCESSFUL PLACEMENT OF A 5 FR DUAL LUMEN 32 CM PICC IN THE RIGHT BASILIC VEIN. PICC Line Insertion 12/22/16 00:00 IMPRESSION: SUCCESSFUL PLACEMENT OF A 5 FR DUAL LUMEN 32 CM PICC IN THE RIGHT BASILIC VEIN. Qualifiers PATEINT BEING DISCHARGED WITH ANY OF THE FOLLOWING DIAGNOSIS?: No
[2016-12-27] MEDS: POTASSIUM CHLORIDE 10 MEQ TABLET.SA PO SCH (10:34)
[2016-12-27] MEDS: AMLODIPINE BESYLATE 10 MG TABLET PO SCH (10:34)
[2016-12-27] MEDS: METOPROLOL TARTRATE 25 MG TABLET PO SCH (10:37)
[2016-12-27] MEDS: DOCUSATE SODIUM 100 MG CAPSULE PO SCH (10:41)
[2016-12-27] MEDS: CEFTRIAXONE 1 GM/D5W RTU 50 ML IV SCH (10:41)
[2016-12-27 10:49] VITALS: BP 129/70
== END 2016-12-27 11:36 | disposition home or self-care (01) | DRG 424 ==
LOC: ER 07:52 → EH 16:33 → UNDOADMIN 16:47 → 2N 18:26
PROC: 0HBAXZZ Excision of Inguinal Skin, External Approach (ICD-10-PCS; principal; 2016-12-21)
PROC: 02HV33Z Insertion of Infusion Device into Superior Vena Cava, Percutaneous Approach (ICD-10-PCS; 2016-12-22)
PROC: B518ZZA Fluoroscopy of Superior Vena Cava, Guidance (ICD-10-PCS; 2016-12-22)
PROC: B548ZZA Ultrasonography of Superior Vena Cava, Guidance (ICD-10-PCS; 2016-12-22)
PROC: 0DB68ZX Excision of Stomach, Via Natural or Artificial Opening Endoscopic, Diagnostic (ICD-10-PCS; 2016-12-23)
DX: K85.90 Acute pancreatitis without necrosis or infection, unspecified (principal); K56.7 Ileus, unspecified; I13.0 Hypertensive heart and chronic kidney disease with heart failure and stage 1 through stage 4 chronic kidney disease, or unspecified chronic kidney disease; K86.2 Cyst of pancreas; L02.214 Cutaneous abscess of groin; E87.2 Acidosis; K21.0 Gastro-esophageal reflux disease with esophagitis; N18.3 Chronic kidney disease, stage 3 (moderate); L02.838 Carbuncle of other sites; L02.828 Furuncle of other sites; I50.9 Heart failure, unspecified; I25.10 Atherosclerotic heart disease of native coronary artery without angina pectoris; E78.5 Hyperlipidemia, unspecified; L73.2 Hidradenitis suppurativa; K21.9 Gastro-esophageal reflux disease without esophagitis; M16.11 Unilateral primary osteoarthritis, right hip; D64.9 Anemia, unspecified; I25.2 Old myocardial infarction; Z79.899 Other long term (current) drug therapy; Z90.5 Acquired absence of kidney; Z90.49 Acquired absence of other specified parts of digestive tract; Z88.6 Allergy status to analgesic agent; Z88.3 Allergy status to other anti-infective agents; Z85.07 Personal history of malignant neoplasm of pancreas; Z85.528 Personal history of other malignant neoplasm of kidney; Z82.49 Family history of ischemic heart disease and other diseases of the circulatory system
CPT/HCPCS: 36415; 36569; 43239; 74176; 74181; 76705; 76937; 77001; 80048; 80053; 81001; 82150; 82272; 82465; 83036; 83605; 83690; 83735; 84100; 84478; 85025; 85610; 86140; 88305; 88342; 93976; 96361; 96374; 96375; 96376; 99285; J0171; J0696; J1610; J1642; J1644; J2250; J2270; J2310; J2405; J3010; J3490; J7030; S0119; S0164

== ENCOUNTER 2016-12-28 14:53 | Emergency (ER) | payer MEDICARE ==
[2016-12-28] MEDS ORDERED: ONDANSETRON 4 MG TAB.RAPDIS PO ONE (15:35)
[2016-12-28] MEDS ORDERED: MECLIZINE HCL 25 MG TABLET PO ONE (15:35)
--- NOTE | 2016-12-28 15:36 | ER Document Report ---
ED Medical Screen (RME) - General Chief Complaint: Dizziness Stated Complaint: DIZZINESS Time Seen by Provider: 12/28/16 15:29 Notes: This 61-year-old female patient comes emergency room complaining of feeling dizzy and faint which started last night. She is okay she is laying still, it is worse if she is up and about with nausea. She was just discharged from the hospital yesterday after a 9 day stay for pancreatitis. I have greeted and performed a rapid initial assessment of this patient. A comprehensive ED assessment and evaluation of the patient, analysis of test results and completion of the medical decision making process will be conducted by additional ED providers. TRAVEL OUTSIDE OF THE [place] IN LAST 30 DAYS: No - Related Data Allergies/Adverse Reactions: sulfamethoxazole [From Bactrim] Allergy (Verified 12/28/16 15:24) trimethoprim [From Bactrim] Allergy (Verified 12/28/16 15:24) aspirin [Aspirin] Adverse Reaction (Verified 12/28/16 15:24) Past Medical History - Social History Chew tobacco use (# tins/day): No Frequency of alcohol use: None Drug Abuse: None Family history: Reviewed & Not Pertinent - Past Medical History Cardiac Medical History: Reports: Hx Congestive Heart Failure, Hx Coronary Artery Disease, Hx Heart Attack - [place] 2013, Hx Hypercholesterolemia, Hx Hypertension Pulmonary Medical History: Denies: Hx Asthma, Hx Bronchitis, Hx COPD, Hx Pneumonia, Hx Tuberculosis Neurological Medical History: Denies: Hx Cerebrovascular Accident, Hx Seizures Renal/ Medical History: Reports: Hx End Stage Renal Disease, Hx Renal Insufficiency - Status post left nephrectomy for renal cell CA. Denies: Hx Peritoneal Dialysis Malignancy Medical History: Reports: Hx Pancreatic Cancer - Mass to the pancreatic tail 07/2015., Hx Renal (Kidney) Cancer GI Medical History: Reports: Hx Gastritis, Hx Gastroesophageal Reflux Disease Musculoskeltal Medical History: Reports Hx Arthritis - Right hip DJD Past Surgical History: Reports: Hx Abdominal Surgery - HERNIA, PERFORATED BOWEL , Hx Cholecystectomy, Hx Herniorrhaphy - Umbilical hernia repair complicated by bowel perforation, Hx Kidney (Renal Surgery). Denies: Hx Hysterectomy - Immunizations Hx Diphtheria, Pertussis, Tetanus Vaccination: No Physical Exam - Vital signs Vitals: Temp Pulse Resp BP Pulse Ox 98 F 87 16 138/88 H 99 12/28/16 14:58 12/28/16 14:58 12/28/16 14:58 12/28/16 14:58 12/28/16 14:58 Course - Vital Signs Vital signs: Temp Pulse Resp BP Pulse Ox 98 F 87 16 138/88 H 99 12/28/16 14:58 12/28/16 14:58 12/28/16 15:24 12/28/16 14:58 12/28/16 14:58
--- NOTE | 2016-12-28 18:50 | ER Document Report ---
ED General - General Chief Complaint: Dizziness Stated Complaint: DIZZINESS Time Seen by Provider: 12/28/16 15:29 Mode of Arrival: Ambulatory Information source: Patient, [facility] Records Notes: 52-year-old female who was recently discharged history of pancreatitis presents with complaints of dizziness nausea vomiting. Patient denies any fevers chills. Patient had a PICC line and is a difficult stick TRAVEL OUTSIDE OF THE [place] IN LAST 30 DAYS: No - HPI Onset: Just prior to arrival Onset/Duration: Sudden Quality of pain: No pain Severity: Mild Pain Level: Denies Associated symptoms: Nausea, Vomiting, Other Exacerbated by: Denies Relieved by: Denies Similar symptoms previously: Yes Recently seen / treated by doctor: Yes - Related Data Allergies/Adverse Reactions: sulfamethoxazole [From Bactrim] Allergy (Verified 12/28/16 15:24) trimethoprim [From Bactrim] Allergy (Verified 12/28/16 15:24) aspirin [Aspirin] Adverse Reaction (Verified 12/28/16 15:24) Past Medical History - Social History Smoking Status: Never Smoker Cigarette use (# per day): No Chew tobacco use (# tins/day): No Smoking Education Provided: No Frequency of alcohol use: None Drug Abuse: None Family History: CAD, Hypertension Patient has suicidal ideation: No Patient has homicidal ideation: No - Past Medical History Cardiac Medical History: Reports: Hx Congestive Heart Failure, Hx Coronary Artery Disease, Hx Heart Attack - [place] 2013, Hx Hypercholesterolemia, Hx Hypertension Pulmonary Medical History: Denies: Hx Asthma, Hx Bronchitis, Hx COPD, Hx Pneumonia, Hx Tuberculosis Neurological Medical History: Denies: Hx Cerebrovascular Accident, Hx Seizures Renal/ Medical History: Reports: Hx End Stage Renal Disease, Hx Renal Insufficiency - Status post left nephrectomy for renal cell CA. Denies: Hx Peritoneal Dialysis Malignancy Medical History: Reports: Hx Pancreatic Cancer - Mass to the pancreatic tail 07/2015., Hx Renal (Kidney) Cancer GI Medical History: Reports: Hx Gastritis, Hx Gastroesophageal Reflux Disease Musculoskeltal Medical History: Reports Hx Arthritis - Right hip DJD Past Surgical History: Reports: Hx Abdominal Surgery - HERNIA, PERFORATED BOWEL , Hx Cholecystectomy, Hx Herniorrhaphy - Umbilical hernia repair complicated by bowel perforation, Hx Kidney (Renal Surgery). Denies: Hx Hysterectomy - Immunizations Hx Diphtheria, Pertussis, Tetanus Vaccination: No Hx Pneumococcal Vaccination: 08/03/10 Review of Systems - Review of Systems Notes: PHYSICAL EXAMINATION: GENERAL: Well-appearing, well-nourished and in no acute distress. HEAD: Atraumatic, normocephalic. EYES: Pupils equal round and reactive to light, extraocular movements intact, conjunctiva are normal. ENT: Nares patent, oropharynx clear without exudates. Moist mucous membranes. NECK: Normal range of motion, supple without lymphadenopathy LUNGS: Breath sounds clear to auscultation bilaterally and equal. No wheezes rales or rhonchi. HEART: Regular rate and rhythm without murmurs ABDOMEN: Soft, nontender, nondistended abdomen. No guarding, no rebound. No masses appreciated. Female : deferred Musculoskeletal: Normal range of motion, no pitting or edema. No cyanosis. NEUROLOGICAL: Cranial nerves grossly intact. Normal speech, normal gait. Normal sensory, motor exams PSYCH: Normal mood, normal affect. SKIN: Warm, Dry, normal turgor, no rashes or lesions noted. Physical Exam - Vital signs Vitals: Temp Pulse Resp BP Pulse Ox 98 F 87 16 138/88 H 99 12/28/16 14:58 12/28/16 14:58 12/28/16 14:58 12/28/16 14:58 12/28/16 14:58 Course - Re-evaluation Re-evalutation: 12/28/16 18:53 Patient was given medications prior to my evaluation and notes her symptoms have resolved. She was quite a difficult stick I was able to obtain an ultrasound-guided IV in the left antecubital. Awaiting lab results at this time overall patient looks well and I expect discharge 12/28/16 20:21 Patient is noted to have continued elevated lipase level and worsening renal function will be given IV fluids and otherwise feels well I will discharge her home to return if there are any worsening symptoms or any other concerns After performing a Medical Screening Examination, I estimate there is LOW risk for ACUTE APPENDICITIS, BOWEL OBSTRUCTION, ACUTE CHOLECYSTITIS, PERFORATED DIVERTICULITIS, INCARCERATED HERNIA, PANCREATITIS, PELVIC INFLAMMATORY DISEASE, PERFORATED ULCER, ECTOPIC , or TUBO-OVARIAN ABSCESS, thus I consider the discharge disposition reasonable. Also, there is no evidence or peritonitis , sepsis, or toxicity. I have reevaluated this patient multiple times and no significant life threatening changes are noted. The patient and I have discussed the diagnosis and risks, and we agree with discharging home with close follow-up with the understanding that symptoms and presentations can change. We also discussed returning to the Emergency Department immediately if new or worsening symptoms occur. We have discussed the symptoms which are most concerning (e.g., bloody stool, fever, changing or worsening pain, vomiting) that necessitate immediate return. - Vital Signs Vital signs: Temp Pulse Resp BP Pulse Ox 98.0 F 67 20 137/76 H 100 12/28/16 19:55 12/28/16 19:55 12/28/16 19:55 12/28/16 19:55 12/28/16 19:55 - Laboratory Result Diagrams: 12/28/16 18:45 12/28/16 18:45 Laboratory results interpreted by me: 12/28/16 12/28/16 18:45 18:45 Hgb 10.9 L Hct 34.0 L MCH 26.8 L MCHC 31.9 L RDW 15.5 H Sodium 145.4 H Chloride 110 H Creatinine 1.64 H Est GFR ( Amer) 39 L Est GFR (Non-Af Amer) 32 L Alkaline Phosphatase 146 H Lipase 639.3 H Discharge - Discharge Clinical Impression: Chronic kidney disease Qualifiers: Chronic kidney disease stage: stage 3 (moderate) Qualified Code(s): N18.3 - Chronic kidney disease, stage 3 (moderate) Pancreatitis Qualifiers: Chronicity: acute Pancreatitis type: unspecified pancreatitis type Acute pancreatitis complication: no infection or necrosis Qualified Code(s): K85.90 - Acute pancreatitis without necrosis or infection, unspecified Nausea and vomiting Qualifiers: Vomiting type: unspecified Vomiting Intractability: non-intractable Qualified Code(s): R11.2 - Nausea with vomiting, unspecified Condition: Stable Disposition: HOME, SELF-CARE Instructions: Intravenous (IV) Fluids ([facility]), Dizziness ([facility]) Additional Instructions: Follow up with your physician tomorrow for further care or return to the ED IMMEDIATELY if symptoms worsen or new concerns occur. If you cannot afford to follow up with your primary care physician a list of low cost clinics have been provided at the end of your discharge papers as well. Prescriptions: Meclizine HCl 25 mg PO Q6 #20 tab.chew Ondansetron HCl [Zofran] 8 mg PO Q6 #20 tablet
[2016-12-28 19:11] LABS: ABSOLUTE EOSINOPHILS # (AUTO) 0.1 10^3/uL (0.0-0.6); ABSOLUTE LYMPHOCYTES (AUTO) 1.9 10^3/uL (0.5-4.7); ABSOLUTE MONOCYTES (AUTO) 0.5 10^3/uL (0.1-1.4); ABSOLUTE NEUT (AUTO) 3.6 10^3/uL (1.7-8.2); BASOPHILS % (AUTO) 0.8 % (0-2); EOSINOPHILS % (AUTO) 1.7 % (0-6); HEMOGLOBIN 10.9 g/dL (12.0-15.5); HGB HCT DIFFERENCE -1.3; LYMPHOCYTES % (AUTO) 30.6 % (13-45); MEAN CORPUSCULAR HEMOGLOBIN 26.8 pg (27.0-33.4); MEAN CORPUSCULAR HGB CONC 31.9 g/dL (32.0-36.0); MEAN CORPUSCULAR VOLUME 84 fl (80-97); MONOCYTES % (AUTO) 8.3 % (3-13); RED BLOOD COUNT 4.05 10^6/uL (3.72-5.28); RED CELL DISTRIBUTION WIDTH 15.5 % (11.5-14.0); SEGMENTED NEUTROPHILS % (AUTO) 58.6 % (42-78); WHITE BLOOD COUNT 6.2 10^3/uL (4.0-10.5)
[2016-12-28 19:40] LABS: ALANINE AMINOTRANSFERASE 42 U/L (9-52); ALBUMIN 3.5 g/dL (3.5-5.0); ALKALINE PHOSPHATASE 146 U/L (38-126); ANION GAP 13 (5-19); ASPARTATE AMINO TRANSFERASE 31 U/L (14-36); BILIRUBIN,DIRECT 0.3 mg/dL (0.0-0.4); BILIRUBIN,TOTAL 0.3 mg/dL (0.2-1.3); BLOOD UREA NITROGEN 14 mg/dL (7-20); CALCIUM 9.4 mg/dL (8.4-10.2); CARBON DIOXIDE 22 mmol/L (22-30); CHLORIDE 110 mmol/L (98-107); CREATININE RESULT 1.64 mg/dL (0.52-1.25); GLUCOSE 102 mg/dL (75-110); LIPASE 639.3 U/L (23-300); POTASSIUM 4.6 mmol/L (3.6-5.0); SODIUM 145.4 mmol/L (137-145); TOTAL PROTEIN 7.2 g/dL (6.3-8.2)
[2016-12-28] MEDS: NORMAL SALINE 1000 ML 1,000 ML IV PRN ×2 (19:55→19:56)
[2016-12-28 21:34] VITALS: BP 124/67
== END 2016-12-28 21:25 | disposition home or self-care (01) ==
LOC: ER 14:53
DX: N18.3 Chronic kidney disease, stage 3 (moderate) (principal); K85.90 Acute pancreatitis without necrosis or infection, unspecified; R11.2 Nausea with vomiting, unspecified; R42 Dizziness and giddiness
CPT/HCPCS: 99284; 96360; 36415; 83690; 85025; 80053; A9270 ×2; J7030; S0119

== ENCOUNTER → 2017-01-07 | Outpatient (CLI) | payer MEDICARE ==
--- NOTE | 2017-01-07 14:36 | RADIOLOGY REPORT (SQ) ---
EXAM DESCRIPTION: FOOT LEFT 2 VIEWS COMPLETED DATE/TIME: 01/07/2017 2:22 pm REASON FOR STUDY: PAIN IN LEFT TOE(S) M79.675 PAIN IN LEFT TOE(S) COMPARISON: None. NUMBER OF VIEWS: Three views. TECHNIQUE: AP, lateral and oblique radiographic images acquired of the left foot. LIMITATIONS: None. FINDINGS: MINERALIZATION: Normal. BONES: No acute fracture or dislocation. No worrisome bone lesions. JOINTS: No effusions. SOFT TISSUES: No soft tissue swelling. No foreign body. OTHER: No other significant finding. IMPRESSION: NEGATIVE STUDY OF THE LEFT FOOT. NO RADIOGRAPHIC EVIDENCE OF ACUTE INJURY. TECHNICAL DOCUMENTATION: JOB ID: [id number] [email or web address]- All Rights Reserved
== END ==
LOC: OD 14:03
PROVIDERS: ATTEND Family Medicine
DX: M79.675 Pain in left toe(s) (principal)

== ENCOUNTER → 2017-04-07 | Outpatient (CLI) | payer MEDICARE ==
[2017-04-07 16:03] LABS: ANION GAP 16 (5-19); BLOOD UREA NITROGEN 32 mg/dL (7-20); CALCIUM 9.7 mg/dL (8.4-10.2); CARBON DIOXIDE 19 mmol/L (22-30); CHLORIDE 108 mmol/L (98-107); CREATININE RESULT 1.85 mg/dL (0.52-1.25); GLUCOSE 131 mg/dL (75-110); POTASSIUM 4.3 mmol/L (3.6-5.0); SODIUM 142.8 mmol/L (137-145)
[2017-04-09 11:40] LABS: CREATININE URINE 89.2 mg/dL (Not Estab.); MICROALBUMIN URINE 25.8 ug/mL (Not Estab.)
== END ==
LOC: OD 14:02
PROVIDERS: ATTEND Internal Medicine Nephrology
DX: N18.3 Chronic kidney disease, stage 3 (moderate) (principal); R80.9 Proteinuria, unspecified
CPT/HCPCS: 36415; 80048; 82043; 82570

== ENCOUNTER → 2017-08-04 | Outpatient (CLI) | payer MEDICARE ==
[2017-08-04 13:36] LABS: APPEARANCE,URINE CLEAR; BILIRUBIN,URINE NEGATIVE (NEGATIVE); COLOR,URINE YELLOW; GLUCOSE, URINE NEGATIVE (NEGATIVE); KETONES,URINE NEGATIVE (NEGATIVE); LEUKOCYTE ESTERASE,URINE NEGATIVE (NEGATIVE); NITRITE,URINE NEGATIVE (NEGATIVE); PROTEIN,URINE NEGATIVE (NEGATIVE); URINE SPECIFIC GRAVITY 1.012; UROBILINOGEN,URINE NEGATIVE mg/dL (<2.0)
[2017-08-04 13:38] LABS: ABSOLUTE LYMPHOCYTES (AUTO) 1.3 10^3/uL (0.5-4.7); ABSOLUTE MONOCYTES (AUTO) 0.2 10^3/uL (0.1-1.4); ABSOLUTE NEUT (AUTO) 2.2 10^3/uL (1.7-8.2); BASOPHILS % (AUTO) 0.4 % (0-2); HEMATOCRIT 36.3 % (36.0-47.0); HEMOGLOBIN 11.6 g/dL (12.0-15.5); LYMPHOCYTES % (AUTO) 35.4 % (13-45); MEAN CORPUSCULAR HEMOGLOBIN 27.1 pg (27.0-33.4); MEAN CORPUSCULAR VOLUME 85 fl (80-97); MONOCYTES % (AUTO) 6.2 % (3-13); PLATELET COUNT 234 10^3/uL (150-450); RED BLOOD COUNT 4.27 10^6/uL (3.72-5.28); RED CELL DISTRIBUTION WIDTH 15.4 % (11.5-14.0); TOTAL CELLS COUNTED % (AUTO) 100 %; WHITE BLOOD COUNT 3.8 10^3/uL (4.0-10.5)
[2017-08-04 14:00] LABS: ALBUMIN 4.4 g/dL (3.5-5.0); ANION GAP 16 (5-19); BLOOD UREA NITROGEN 36 mg/dL (7-20); CALCIUM 10.2 mg/dL (8.4-10.2); CARBON DIOXIDE 19 mmol/L (22-30); CHLORIDE 111 mmol/L (98-107); GLUCOSE 88 mg/dL (75-110); PHOSPHORUS 3.7 mg/dL (2.5-4.5); POTASSIUM 4.5 mmol/L (3.6-5.0); SODIUM 145.5 mmol/L (137-145)
[2017-08-05 10:37] LABS: CREATININE URINE 74.3 mg/dL (Not Estab.); MICROALBUMIN URINE 41.4 ug/mL (Not Estab.)
== END ==
LOC: OD 12:44
PROVIDERS: ATTEND Internal Medicine Nephrology
DX: N18.3 Chronic kidney disease, stage 3 (moderate) (principal); R80.9 Proteinuria, unspecified; D64.9 Anemia, unspecified
CPT/HCPCS: 36415; 80048; 81001; 82040; 82043; 82306; 82570; 83970; 84100; 85025

== ENCOUNTER → 2017-10-28 | Outpatient (CLI) | payer MEDICAID, MEDICARE ==
--- NOTE | 2017-10-28 17:13 | WOMENS IMAGING REPORT ---
EXAM DESCRIPTION: 3D SCREENING MAMMO BILAT COMPLETED DATE/TIME: 10/28/2017 10:00 am REASON FOR STUDY: ROUTINE SCREENING;Z12.31 Z12.31 ENCNTR SCREEN MAMMOGRAM FOR MALIGNANT NEOPLASM OF FRANCISCO JAVIER COMPARISON: 2012 to 2016 TECHNIQUE: Standard craniocaudal and mediolateral oblique views of each breast recorded using digita l acquisition and breast tomosynthesis. LIMITATIONS: None. FINDINGS: No masses, calcifications or architectural distortion. No areas of suspicion. Read with the assistance of CAD. .[facility] - R2 Cenova Version 1.3 .[facility] Imaging - R2 Cenova Version 1.3 .[facility] - R2 Cenova Version 2.4 .[facility] - R2 Cenova Version 2.4 .[facility] - R2 Assistant Press Operator Offset Version 9.2 IMPRESSION: NORMAL MAMMOGRAM. BIRADS 1. BREAST DENSITY: b. There are scattered areas of fibroglandular density. BIRAD: 1 NEGATIVE RECOMMENDATION: ROUTINE SCREENING COMMENT: The patient has been notified of the results by letter per [place] requirements. Additional no tification policies are in place for contacting patient with suspicious or incomplete findings. Quality ID #[id number]: The [employer] recommends an annual screening mammogram for women aged 40 years or over. This facility utilizes a reminder system to ensure that all patients receive reminder letters, and/or direct phone calls for appointments. This includes reminders for routine scr eening mammograms, diagnostic mammograms, or other Breast Imaging Interventions when appropriate. Th is patient will be placed in the appropriate reminder system. The [employer] (ACR) has developed recommendations for screening MRI of the breast s in certain patient populations, to be used in conjunction with mammography. Breast MRI surveillanc e may be appropriate for women with more than 20% lifetime risk of developing breast cancer as deter mined by genetic testing, significant family history of the disease, or history of mantle radiation f or Hodgkins Disease. ACR Practice Guidelines 2008. DBT Technology DBT is a type of tomographic mammography. With conventional mammography, overlapping breast tissue ma y make lesions difficult to detect, even with good compression. DBT uses an x-ray tube that rotates a round the breast, taking images at different angles. These images are then combined to create thin sl ices of the breast that the radiologist can view as a 3D reconstruction. The [employer] unit can perform full-field digital mammograms (2D imaging); or DBT (3D imaging); or both, in a combination mode that quickly performs both the mammogram and the tomosynthesis scan while the breast is still compressed. PQRS 6045F: Fluoroscopic imaging is not utilized for breast tomosynthesis. TECHNICAL DOCUMENTATION: FINDING NUMBER: (1) ASSESSMENT: (1) JOB ID: [id number] [employer]- All Rights Reserved Reading location - IP/workstation name: [email or web address] [id number]
== END ==
LOC: WI 09:28
PROVIDERS: ATTEND Internal Medicine Medical Oncology
DX: Z12.31 Encounter for screening mammogram for malignant neoplasm of breast (principal)
CPT/HCPCS: 77063; 77067

== ENCOUNTER → 2017-12-02 | Outpatient (CLI) | payer MEDICARE ==
[2017-12-02 12:16] LABS: ABSOLUTE LYMPHOCYTES (AUTO) 1.3 10^3/uL (0.5-4.7); ABSOLUTE MONOCYTES (AUTO) 0.3 10^3/uL (0.1-1.4); ABSOLUTE NEUT (AUTO) 2.1 10^3/uL (1.7-8.2); BASOPHILS % (AUTO) 0.8 % (0-2); EOSINOPHILS % (AUTO) 0.7 % (0-6); HEMATOCRIT 34.7 % (36.0-47.0); HEMOGLOBIN 11.2 g/dL (12.0-15.5); LYMPHOCYTES % (AUTO) 34.2 % (13-45); MEAN CORPUSCULAR HEMOGLOBIN 26.6 pg (27.0-33.4); MEAN CORPUSCULAR HGB CONC 32.3 g/dL (32.0-36.0); MEAN CORPUSCULAR VOLUME 82 fl (80-97); MONOCYTES % (AUTO) 9.1 % (3-13); PLATELET COUNT 214 10^3/uL (150-450); RED BLOOD COUNT 4.21 10^6/uL (3.72-5.28); SEGMENTED NEUTROPHILS % (AUTO) 55.2 % (42-78); TOTAL CELLS COUNTED % (AUTO) 100 %; WHITE BLOOD COUNT 3.8 10^3/uL (4.0-10.5)
[2017-12-02 12:46] LABS: ANION GAP 14 (5-19); BLOOD UREA NITROGEN 30 mg/dL (7-20); CALCIUM 9.2 mg/dL (8.4-10.2); CARBON DIOXIDE 21 mmol/L (22-30); CHLORIDE 112 mmol/L (98-107); GLUCOSE 97 mg/dL (75-110); POTASSIUM 3.9 mmol/L (3.6-5.0); SODIUM 147.4 mmol/L (137-145)
[2017-12-03 10:38] LABS: CREATININE URINE 156.1 mg/dL (Not Estab.); MICROALBUMIN URINE 302.1 ug/mL (Not Estab.)
== END ==
LOC: OD 11:29
PROVIDERS: ATTEND Internal Medicine Nephrology
DX: N18.3 Chronic kidney disease, stage 3 (moderate) (principal); R80.9 Proteinuria, unspecified; N25.81 Secondary hyperparathyroidism of renal origin; D64.9 Anemia, unspecified
CPT/HCPCS: 36415; 80048; 82043; 82570; 83970; 85025

== ENCOUNTER 2017-12-25 08:55 | Emergency (ER) | payer MEDICARE, MEDICAID ==
[2017-12-25] MEDS ORDERED: OXYCODONE-ACETAMINOPHEN 5-325 MG TABLET PO ONE (09:27)
[2017-12-25] MEDS ORDERED: COLCHICINE 0.6 MG TABLET PO ONE (09:27)
--- NOTE | 2017-12-25 09:33 | ER Document Report ---
ED Extremity Problem, Lower - General Chief Complaint: Foot Pain Stated Complaint: LEFT FOOT PAIN Time Seen by Provider: 12/25/17 09:26 Mode of Arrival: Wheelchair Information source: Patient Notes: 62-year-old female presented ED with a red swollen and inflamed second toe of the left foot. Patient is rubbing her footing client. She states she has had gout once before but it did not look like this. The foot is mildly red but the third toe is very red and swollen. TRAVEL OUTSIDE OF THE [place] IN LAST 30 DAYS: No - HPI Patient complains to provider of: Pain, Swelling Location: 3rd Toe - Left Occurred: Other Where: Home - Several days Onset/Duration: Sudden Quality of pain: Burning, Sharp, Throbbing Recent injury: No Associated symptoms: Other Exacerbated by: Movement - Appears to be gout or infection, Walking Relieved by: Elevation - Related Data Allergies/Adverse Reactions: sulfamethoxazole [From Bactrim] Allergy (Verified 12/28/16 15:24) trimethoprim [From Bactrim] Allergy (Verified 12/28/16 15:24) aspirin [Aspirin] Adverse Reaction (Verified 12/28/16 15:24) Past Medical History - General Information source: Patient - Social History Smoking Status: Never Smoker Cigarette use (# per day): No Chew tobacco use (# tins/day): No Smoking Education Provided: No Frequency of alcohol use: None Drug Abuse: None Lives with: Family Family History: CAD, Hypertension Patient has suicidal ideation: No Patient has homicidal ideation: No - Past Medical History Cardiac Medical History: Reports: Hx Congestive Heart Failure, Hx Coronary Artery Disease, Hx Heart Attack - [place] 2013, Hx Hypercholesterolemia, Hx Hypertension Pulmonary Medical History: Reports: None EENT Medical History: Reports: None Neurological Medical History: Reports: None Endocrine Medical History: Reports: None Renal/ Medical History: Reports: Hx End Stage Renal Disease, Hx Renal Insufficiency - Status post left nephrectomy for renal cell CA Malignancy Medical History: Reports: None, Hx Pancreatic Cancer - Mass to the pancreatic tail 07/2015., Hx Renal (Kidney) Cancer GI Medical History: Reports: Hx Gastritis, Hx Gastroesophageal Reflux Disease Musculoskeltal Medical History: Reports Hx Arthritis - Right hip DJD Skin Medical History: Reports None Psychiatric Medical History: Reports: None Traumatic Medical History: Reports: None Infectious Medical History: Reports: None Past Surgical History: Reports: Hx Abdominal Surgery - HERNIA, PERFORATED BOWEL , Hx Cholecystectomy, Hx Herniorrhaphy - Umbilical hernia repair complicated by bowel perforation, Hx Kidney (Renal Surgery) - Immunizations Hx Diphtheria, Pertussis, Tetanus Vaccination: No Hx Pneumococcal Vaccination: 08/03/10 Review of Systems - Review of Systems Constitutional: No symptoms reported EENT: No symptoms reported Cardiovascular: No symptoms reported Respiratory: No symptoms reported Gastrointestinal: No symptoms reported Genitourinary: No symptoms reported Female Genitourinary: No symptoms reported Musculoskeletal: No symptoms reported Skin: No symptoms reported Hematologic/Lymphatic: No symptoms reported Neurological/Psychological: No symptoms reported -: Yes All other systems reviewed and negative Physical Exam - Vital signs Vitals: Temp Pulse Resp BP Pulse Ox 100.0 F 89 18 160/96 H 100 12/25/17 08:59 12/25/17 08:59 12/25/17 08:59 12/25/17 08:59 12/25/17 08:59 Interpretation: Normal - General General appearance: Appears well, Alert - HEENT Head: Normocephalic, Atraumatic Eyes: Normal Pupils: PERRL - Respiratory Respiratory status: No respiratory distress Chest status: Nontender Breath sounds: Normal Chest palpation: Normal - Cardiovascular Rhythm: Regular Heart sounds: Normal auscultation Murmur: No - Abdominal Inspection: Normal Distension: No distension Bowel sounds: Normal Tenderness: Nontender Organomegaly: No organomegaly - Back Back: Normal, Nontender - Extremities General upper extremity: Normal inspection, Nontender, Normal color, Normal ROM , Normal temperature General lower extremity: No: Sami's sign Foot: Other - Left third toe very red inflamed hot painful tender to touch does have Refill foot red tender - Neurological Neuro grossly intact: Yes Cognition: Normal Orientation: AAOx4 Naoma Coma Scale Eye Opening: Spontaneous Naoma Coma Scale Verbal: Oriented Justin Coma Scale Motor: Obeys Commands Justin Coma Scale Total: 15 Speech: Normal Motor strength normal: LUE, RUE, LLE, RLE Sensory: Normal - Psychological Associated symptoms: Normal affect, Normal mood - Skin Skin Temperature: Warm Skin Moisture: Dry Skin Color: Normal Character of irregularity: Erythematous - Left third toe Irregularity with: Swelling, Tenderness Course - Vital Signs Vital signs: Temp Pulse Resp BP Pulse Ox 100.0 F 89 18 160/96 H 100 12/25/17 08:59 12/25/17 08:59 12/25/17 08:59 12/25/17 08:59 12/25/17 08:59
--- NOTE | 2017-12-25 09:54 | ER Document Report ---
ED Medical Screen (RME) - General Chief Complaint: Foot Pain Stated Complaint: LEFT FOOT PAIN Time Seen by Provider: 12/25/17 09:26 Mode of Arrival: Ambulatory Information source: Patient Notes: 62-year-old female presented ED for red swollen inflamed third toe on left foot. Patient is rubbing her foot and [place]. She states she had gout once before but did not look like this. States she went to her primary doctor and they gave her some Medicine but then they did not give her the prescription. She said the foot is mildly red but the third toe is very red and swollen with a good cap refill. Pedal pulses are present. Patient states that the toe and entire foot is very painful and she is unable to walk on her foot. Patient was treated with colchicine and Percocet x-ray was completed. I have greeted and performed a rapid initial assessment of this patient. A comprehensive ED assessment and evaluation of the patient, analysis of test results and completion of medical decision making process will be conducted by an additional ED providers. TRAVEL OUTSIDE OF THE [place] IN LAST 30 DAYS: No - Related Data Allergies/Adverse Reactions: sulfamethoxazole [From Bactrim] Allergy (Verified 12/28/16 15:24) trimethoprim [From Bactrim] Allergy (Verified 12/28/16 15:24) aspirin [Aspirin] Adverse Reaction (Verified 12/28/16 15:24) Past Medical History - Social History Chew tobacco use (# tins/day): No Frequency of alcohol use: None Drug Abuse: None Family history: Reviewed & Not Pertinent - Past Medical History Cardiac Medical History: Reports: Hx Congestive Heart Failure, Hx Coronary Artery Disease, Hx Heart Attack - [place] 2013, Hx Hypercholesterolemia, Hx Hypertension Pulmonary Medical History: Denies: Hx Asthma, Hx Bronchitis, Hx COPD, Hx Pneumonia, Hx Tuberculosis Neurological Medical History: Denies: Hx Cerebrovascular Accident, Hx Seizures Renal/ Medical History: Reports: Hx End Stage Renal Disease, Hx Renal Insufficiency - Status post left nephrectomy for renal cell CA. Denies: Hx Peritoneal Dialysis Malignancy Medical History: Reports: Hx Pancreatic Cancer - Mass to the pancreatic tail 07/2015., Hx Renal (Kidney) Cancer GI Medical History: Reports: Hx Gastritis, Hx Gastroesophageal Reflux Disease Musculoskeltal Medical History: Reports Hx Arthritis - Right hip DJD Past Surgical History: Reports: Hx Abdominal Surgery - HERNIA, PERFORATED BOWEL , Hx Cholecystectomy, Hx Herniorrhaphy - Umbilical hernia repair complicated by bowel perforation, Hx Kidney (Renal Surgery). Denies: Hx Hysterectomy - Immunizations Hx Diphtheria, Pertussis, Tetanus Vaccination: No Physical Exam - Vital signs Vitals: Temp Pulse Resp BP Pulse Ox 100.0 F 89 18 160/96 H 100 12/25/17 08:59 12/25/17 08:59 12/25/17 08:59 12/25/17 08:59 12/25/17 08:59 Course - Vital Signs Vital signs: Temp Pulse Resp BP Pulse Ox 100.0 F 89 18 160/96 H 100 12/25/17 08:59 12/25/17 08:59 12/25/17 08:59 12/25/17 08:59 12/25/17 08:59
--- NOTE | 2017-12-25 10:12 | RADIOLOGY REPORT (SQ) ---
EXAM DESCRIPTION: FOOT LEFT COMPLETE COMPLETED DATE/TIME: 12/25/2017 9:44 am REASON FOR STUDY: pain and swelling COMPARISON: 01/07/2017 NUMBER OF VIEWS: Three views. TECHNIQUE: AP, lateral and oblique radiographic images acquired of the left foot. LIMITATIONS: None. FINDINGS: MINERALIZATION: Normal. BONES: No acute fracture or dislocation. No worrisome bone lesions. JOINTS: Degenerative joint changes are seen in the 3rd distal interphalangeal joint. SOFT TISSUES: No soft tissue swelling. No foreign body. OTHER: No other significant finding. IMPRESSION: Degenerative joint disease. TECHNICAL DOCUMENTATION: JOB ID: [id number] [employer]- All Rights Reserved Reading location - IP/workstation name: [email or web address]
[2017-12-25] MEDS ORDERED: CLINDAMYCIN HCL 150 MG CAPSULE PO ONE (10:18)
[2017-12-25 10:25] LABS: ABSOLUTE BASOPHILS # (AUTO) 0.1 10^3/uL (0.0-0.2); ABSOLUTE LYMPHOCYTES (AUTO) 1.7 10^3/uL (0.5-4.7); ABSOLUTE MONOCYTES (AUTO) 0.5 10^3/uL (0.1-1.4); ABSOLUTE NEUT (AUTO) 4.7 10^3/uL (1.7-8.2); BASOPHILS % (AUTO) 0.9 % (0-2); EOSINOPHILS % (AUTO) 0.5 % (0-6); HEMATOCRIT 34.2 % (36.0-47.0); HEMOGLOBIN 10.9 g/dL (12.0-15.5); LYMPHOCYTES % (AUTO) 24.2 % (13-45); MEAN CORPUSCULAR HEMOGLOBIN 26.4 pg (27.0-33.4); MEAN CORPUSCULAR HGB CONC 31.8 g/dL (32.0-36.0); MEAN CORPUSCULAR VOLUME 83 fl (80-97); MONOCYTES % (AUTO) 7.2 % (3-13); PLATELET COUNT 251 10^3/uL (150-450); RED BLOOD COUNT 4.12 10^6/uL (3.72-5.28); RED CELL DISTRIBUTION WIDTH 15.8 % (11.5-14.0); SEGMENTED NEUTROPHILS % (AUTO) 67.2 % (42-78); TOTAL CELLS COUNTED % (AUTO) 100 %
--- NOTE | 2017-12-25 10:26 | ER Document Report ---
ED General - General Chief Complaint: Foot Pain Stated Complaint: LEFT FOOT PAIN Time Seen by Provider: 12/25/17 09:26 Mode of Arrival: Ambulatory Information source: Patient Notes: 62-year-old female history of previous gout in the right foot presents with complaints of swelling pain of the left foot third digit. Patient denies any fevers or chills notes the toe is swollen. TRAVEL OUTSIDE OF THE [place] IN LAST 30 DAYS: No - HPI Onset: Other - 2 day duration Onset/Duration: Persistent Quality of pain: Sharp Severity: Severe Pain Level: 4 Associated symptoms: Other Exacerbated by: Movement Relieved by: Denies Similar symptoms previously: Yes Recently seen / treated by doctor: Yes - Related Data Allergies/Adverse Reactions: sulfamethoxazole [From Bactrim] Allergy (Verified 12/28/16 15:24) trimethoprim [From Bactrim] Allergy (Verified 12/28/16 15:24) aspirin [Aspirin] Adverse Reaction (Verified 12/28/16 15:24) Past Medical History - General Information source: Patient - Social History Smoking Status: Never Smoker Cigarette use (# per day): No Chew tobacco use (# tins/day): No Smoking Education Provided: No Frequency of alcohol use: None Drug Abuse: None Family History: CAD, Hypertension Patient has suicidal ideation: No Patient has homicidal ideation: No - Past Medical History Cardiac Medical History: Reports: Hx Congestive Heart Failure, Hx Coronary Artery Disease, Hx Heart Attack - [place] 2013, Hx Hypercholesterolemia, Hx Hypertension Pulmonary Medical History: Denies: Hx Asthma, Hx Bronchitis, Hx COPD, Hx Pneumonia, Hx Tuberculosis Neurological Medical History: Denies: Hx Cerebrovascular Accident, Hx Seizures Renal/ Medical History: Reports: Hx End Stage Renal Disease, Hx Renal Insufficiency - Status post left nephrectomy for renal cell CA. Denies: Hx Peritoneal Dialysis Malignancy Medical History: Reports: Hx Pancreatic Cancer - Mass to the pancreatic tail 07/2015., Hx Renal (Kidney) Cancer GI Medical History: Reports: Hx Gastritis, Hx Gastroesophageal Reflux Disease Musculoskeltal Medical History: Reports Hx Arthritis - Right hip DJD Past Surgical History: Reports: Hx Abdominal Surgery - HERNIA, PERFORATED BOWEL , Hx Cholecystectomy, Hx Herniorrhaphy - Umbilical hernia repair complicated by bowel perforation, Hx Kidney (Renal Surgery). Denies: Hx Hysterectomy - Immunizations Hx Diphtheria, Pertussis, Tetanus Vaccination: No Hx Pneumococcal Vaccination: 08/03/10 Review of Systems - Review of Systems Notes: REVIEW OF SYSTEMS: CONSTITUTIONAL : Denies fever, chills, or sweats. Denies recent illness. EENT: Denies eye, ear, throat, or mouth pain or symptoms. Denies nasal or sinus congestion or discharge. Denies throat, tongue, or mouth swelling or difficulty swallowing. CARDIOVASCULAR: Denies chest pain. Denies palpitations or racing or irregular heart beat. Denies ankle edema. RESPIRATORY: Denies cough, cold, or chest congestion. Denies shortness of breath, difficulty breathing, or wheezing. GASTROINTESTINAL: Denies abdominal pain or distention. Denies nausea, vomiting , or diarrhea. Denies blood in vomitus, stools, or per rectum. Denies black, tarry stools. Denies constipation. GENITOURINARY: Denies difficulty urinating, painful urination, burning, frequency, blood in urine, or discharge. FEMALE GENITOURINARY: Denies vaginal bleeding, heavy or abnormal periods, irregular periods. Denies vaginal discharge or odor. MUSCULOSKELETAL: Denies back or neck pain or stiffness. Denies joint pain or swelling. SKIN: Admits to toe swelling HEMATOLOGIC : Denies easy bruising or bleeding. LYMPHATIC: Denies swollen, enlarged glands. NEUROLOGICAL: Denies confusion or altered mental status. Denies passing out or loss of consciousness. Denies dizziness or lightheadedness. Denies headache. Denies weakness or paralysis or loss of use of either side. Denies problems with gait or speech. Denies sensory loss, numbness, or tingling. Denies seizures. PSYCHIATRIC: Denies anxiety or stress. Denies depression, suicidal ideation, or homicidal ideation. ALL OTHER SYSTEMS REVIEWED AND NEGATIVE. PHYSICAL EXAMINATION: GENERAL: Well-appearing, well-nourished and in mild acute distress, pain controlled. HEAD: Atraumatic, normocephalic. EYES: Pupils equal round and reactive to light, extraocular movements intact, conjunctiva are normal. ENT: Nares patent, oropharynx clear without exudates. Moist mucous membranes. NECK: Normal range of motion, supple without lymphadenopathy LUNGS: Breath sounds clear to auscultation bilaterally and equal. No wheezes rales or rhonchi. HEART: Regular rate and rhythm without murmurs ABDOMEN: Soft, nontender, nondistended abdomen. No guarding, no rebound. No masses appreciated. Female : deferred Musculoskeletal: Normal range of motion, no pitting or edema. No cyanosis. NEUROLOGICAL: Cranial nerves grossly intact. Normal speech, normal gait. Normal sensory, motor exams PSYCH: Normal mood, normal affect. SKIN: left foot 3rd digit is swollen tender to touch, there is streaking ot the mid foot Dictation was performed using [employer] voice recognition software Physical Exam - Vital signs Vitals: Temp Pulse Resp BP Pulse Ox 100.0 F 89 18 160/96 H 100 12/25/17 08:59 12/25/17 08:59 12/25/17 08:59 12/25/17 08:59 12/25/17 08:59 Course - Re-evaluation Re-evalutation: 12/25/17 10:28 It is questionable if this is gout versus cellulitis, x-ray shows degenerative changes of the toe otherwise patient may actually have a cellulitic component 12/25/17 11:21 pts esr crp noted to be elevated, uric acid is elevated, pt presentation is consistnat with gout, will dc home with prednisoine percocet and close follow up with pcp After performing a Medical Screening Examination, I estimate there is LOW risk for OPEN FRACTURE, COMPARTMENT SYNDROME, TENDON RUPTURE, ACUTE NEUROVASCULAR INJURY, or RETAINED FOREIGN BODY, thus I consider the discharge disposition reasonable. Also, there is no evidence or peritonitis, sepsis, or toxicity. I have reevaluated this patient multiple times and no significant life threatening changes are noted. The patient and I have discussed the diagnosis and risks, and we agree with discharging home with close follow-up with the understanding that symptoms and presentations can change. We also discussed returning to the Emergency Department immediately if new or worsening symptoms occur. We have discussed the symptoms which are most concerning (e.g., changing or worsening pain, fever, numbness, weakness, cool or painful digits) that necessitate immediate return. - Vital Signs Vital signs: Temp Pulse Resp BP Pulse Ox 100.0 F 89 18 160/96 H 100 12/25/17 08:59 12/25/17 08:59 12/25/17 08:59 12/25/17 08:59 12/25/17 08:59 - Laboratory Result Diagrams: 12/25/17 09:50 12/25/17 09:50 Laboratory results interpreted by me: 12/25/17 12/25/17 09:50 09:50 Hgb 10.9 L Hct 34.2 L MCH 26.4 L MCHC 31.8 L RDW 15.8 H ESR 86 H Sodium 146.8 H Chloride 112 H BUN 28 H Creatinine 1.62 H Est GFR ( Amer) 39 L Est GFR (Non-Af Amer) 32 L Uric Acid 9.0 H Alkaline Phosphatase 142 H C-Reactive Protein 49.3 H Total Protein 8.4 H - Diagnostic Test Radiology reviewed: Image reviewed - xray foot 4 view noted degenerative changes of the toe, Reports reviewed Discharge - Discharge Clinical Impression: Gout Qualifiers: Gout site: toe Encounter type: initial encounter Chronicity: acute Laterality: left CKD (chronic kidney disease) Qualifiers: Chronic kidney disease stage: stage 2 (mild) Qualified Code(s): N18.2 - Chronic kidney disease, stage 2 (mild) Condition: Stable Disposition: HOME, SELF-CARE Instructions: Gout Diet ([facility]), Gout ([facility]) Additional Instructions: Return immediately if symptoms worsen Prescriptions: Oxycodone HCl/Acetaminophen [Percocet 5-325 mg Tablet] 1 - 2 tab PO Q4H PRN #20 tablet PRN Reason: Prednisone [Deltasone 20 mg Tablet] 3 tab PO DAILY 5 Days tablet Referrals: DARRICK ADEN MD [NO LOCAL MD] - Follow up as needed
[2017-12-25 11:02] LABS: ALANINE AMINOTRANSFERASE 21 U/L (9-52); ALBUMIN 4.2 g/dL (3.5-5.0); ALKALINE PHOSPHATASE 142 U/L (38-126); ANION GAP 13 (5-19); ASPARTATE AMINO TRANSFERASE 24 U/L (14-36); BILIRUBIN,DIRECT 0.3 mg/dL (0.0-0.4); BILIRUBIN,TOTAL 0.4 mg/dL (0.2-1.3); BLOOD UREA NITROGEN 28 mg/dL (7-20); C-REACTIVE PROTEIN 49.3 mg/L (<10.0); CALCIUM 9.2 mg/dL (8.4-10.2); CARBON DIOXIDE 22 mmol/L (22-30); CHLORIDE 112 mmol/L (98-107); GLUCOSE 97 mg/dL (75-110); POTASSIUM 4.5 mmol/L (3.6-5.0); SODIUM 146.8 mmol/L (137-145); TOTAL PROTEIN 8.4 g/dL (6.3-8.2)
[2017-12-25 11:03] LABS: ERYTHROCYTE SEDIMENTATION RATE 86 mm/hr (0-30)
[2017-12-25 11:41] VITALS: BP 142/85
== END 2017-12-25 11:41 | disposition home or self-care (01) ==
LOC: ER 08:55
DX: M10.9 Gout, unspecified (principal); M79.672 Pain in left foot; I13.0 Hypertensive heart and chronic kidney disease with heart failure and stage 1 through stage 4 chronic kidney disease, or unspecified chronic kidney disease; N18.2 Chronic kidney disease, stage 2 (mild); I50.9 Heart failure, unspecified; I25.10 Atherosclerotic heart disease of native coronary artery without angina pectoris; E78.00 Pure hypercholesterolemia, unspecified; I25.2 Old myocardial infarction; Z88.6 Allergy status to analgesic agent; Z88.3 Allergy status to other anti-infective agents; Z90.49 Acquired absence of other specified parts of digestive tract
CPT/HCPCS: 99284; 36415; 84550; 85025; 85652; 86140; 80053; 73630; A9270 ×3

== ENCOUNTER → 2018-01-04 | Outpatient (CLI) | payer MEDICARE, MEDICAID ==
[2018-01-04 12:54] LABS: ANION GAP 14 (5-19); BLOOD UREA NITROGEN 42 mg/dL (7-20); CALCIUM 9.5 mg/dL (8.4-10.2); CARBON DIOXIDE 18 mmol/L (22-30); CHLORIDE 114 mmol/L (98-107); GLUCOSE 96 mg/dL (75-110); POTASSIUM 4.8 mmol/L (3.6-5.0); SODIUM 145.5 mmol/L (137-145)
[2018-01-05 13:38] LABS: CREATININE URINE 109.5 mg/dL (Not Estab.); MICROALBUMIN URINE 101.1 ug/mL (Not Estab.)
== END ==
LOC: OD 11:26
PROVIDERS: ATTEND Internal Medicine Nephrology
DX: N18.3 Chronic kidney disease, stage 3 (moderate) (principal); R80.9 Proteinuria, unspecified
CPT/HCPCS: 36415; 80048; 82043; 82570

== ENCOUNTER → 2018-01-27 | Outpatient (CLI) | payer MEDICARE, MEDICAID ==
[2018-01-27 09:54] LABS: ANION GAP 13 (5-19); BLOOD UREA NITROGEN 36 mg/dL (7-20); CALCIUM 9.1 mg/dL (8.4-10.2); CARBON DIOXIDE 20 mmol/L (22-30); CHLORIDE 115 mmol/L (98-107); GLUCOSE 95 mg/dL (75-110); POTASSIUM 4.4 mmol/L (3.6-5.0); SODIUM 148.2 mmol/L (137-145)
[2018-01-28 09:39] LABS: CREATININE URINE 126.6 mg/dL (Not Estab.)
[2018-01-28 10:15] LABS: MICROALBUMIN URINE 731.7 ug/mL (Not Estab.)
== END ==
LOC: OD 08:30
PROVIDERS: ATTEND Internal Medicine Nephrology
DX: N18.3 Chronic kidney disease, stage 3 (moderate) (principal); R80.9 Proteinuria, unspecified
CPT/HCPCS: 36415; 80048; 82043; 82570

== ENCOUNTER 2018-02-18 09:14 | Emergency (ER) | payer MEDICARE, MEDICAID ==
[2018-02-18] MEDS ORDERED: ASPIRIN 81 MG TABLET, CHEWABLE PO ONE (09:34)
--- NOTE | 2018-02-18 09:34 | ER Document Report ---
ED Medical Screen (RME) - General Chief Complaint: Chest Pain Stated Complaint: SHORTNESS OF BREATH Time Seen by Provider: 02/18/18 09:29 Notes: RAPID MEDICAL EVALUATION DISCLOSURE I have seen this patient as part of a Rapid Medical Evaluation and, if applicable, placed any initially appropriate orders. The patient will be seen and fully evaluated, including a full history and physical exam, by a provider ( in Main ED or Fast Track) when a room becomes available. 62-year-old female PMH CHF here with complaints of midsternal nonradiating constant chest pain/tightness as well as shortness of breath ongoing for the past few hours. Symptoms are worse with lying flat and with exertion but not breathing and deep. She has not tried anything for the symptoms. She reports a history of bradycardia. She denies any other symptoms including diaphoresis lightheadedness nausea vomiting. EXAM CTAB RRR TRAVEL OUTSIDE OF THE [place] IN LAST 30 DAYS: No - Related Data Allergies/Adverse Reactions: sulfamethoxazole [From Bactrim] Allergy (Verified 02/18/18 09:15) trimethoprim [From Bactrim] Allergy (Verified 02/18/18 09:15) aspirin [Aspirin] Adverse Reaction (Verified 02/18/18 09:15) Past Medical History - Social History Family history: Reviewed & Not Pertinent - Past Medical History Cardiac Medical History: Reports: Hx Congestive Heart Failure, Hx Coronary Artery Disease, Hx Heart Attack - [place] 2013, Hx Hypercholesterolemia, Hx Hypertension Pulmonary Medical History: Denies: Hx Asthma, Hx Bronchitis, Hx COPD, Hx Pneumonia, Hx Tuberculosis Neurological Medical History: Denies: Hx Cerebrovascular Accident, Hx Seizures Renal/ Medical History: Reports: Hx End Stage Renal Disease, Hx Renal Insufficiency - Status post left nephrectomy for renal cell CA. Denies: Hx Peritoneal Dialysis Malignancy Medical History: Reports: Hx Pancreatic Cancer - Mass to the pancreatic tail 07/2015., Hx Renal (Kidney) Cancer GI Medical History: Reports: Hx Gastritis, Hx Gastroesophageal Reflux Disease Musculoskeltal Medical History: Reports Hx Arthritis - Right hip DJD Past Surgical History: Reports: Hx Abdominal Surgery - HERNIA, PERFORATED BOWEL , Hx Cholecystectomy, Hx Herniorrhaphy - Umbilical hernia repair complicated by bowel perforation, Hx Kidney (Renal Surgery). Denies: Hx Hysterectomy - Immunizations Hx Diphtheria, Pertussis, Tetanus Vaccination: No Physical Exam - Vital signs Vitals: Temp Pulse Resp BP Pulse Ox 98.5 F 87 18 148/96 H 100 02/18/18 09:17 02/18/18 09:17 02/18/18 09:17 02/18/18 09:17 02/18/18 09:17 Course - Vital Signs Vital signs: Temp Pulse Resp BP Pulse Ox 98.5 F 87 18 148/96 H 100 02/18/18 09:17 02/18/18 09:17 02/18/18 09:17 02/18/18 09:17 02/18/18 09:17 Doctor's Discharge - Discharge Referrals: RACHEAL CARLSON MD [Primary Care Provider] - Follow up as needed
--- NOTE | 2018-02-18 10:46 | RADIOLOGY REPORT (SQ) ---
EXAM DESCRIPTION: CHEST 2 VIEWS COMPLETED DATE/TIME: 02/18/2018 10:36 am REASON FOR STUDY: CP SOB COMPARISON: July 2016 EXAM PARAMETERS: NUMBER OF VIEWS: two views TECHNIQUE: Digital Frontal and Lateral radiographic views of the chest acquired. RADIATION DOSE: NA LIMITATIONS: none FINDINGS: LUNGS AND PLEURA: There is ill-defined increased density in the right upper lung field lat erally which could represent a minimal infiltrate, atelectatic changes, or scarring. Remaining lung dawn are clear. No pleural effusions are identified. MEDIASTINUM AND HILAR STRUCTURES: No masses or contour abnormalities. HEART AND VASCULAR STRUCTURES: Heart normal size. No evidence for failure. BONES: No acute findings. HARDWARE: None in the chest. OTHER: No other significant finding. IMPRESSION: Ill-defined increased density in the right upper lung field laterally as noted above. R emaining lung dawn are clear. Other findings as noted above TECHNICAL DOCUMENTATION: JOB ID: [id number] [email or web address]- All Rights Reserved Reading location - IP/workstation name: [email or web address]
[2018-02-18 10:52] LABS: ABSOLUTE LYMPHOCYTES (AUTO) 1.5 10^3/uL (0.5-4.7); ABSOLUTE MONOCYTES (AUTO) 0.3 10^3/uL (0.1-1.4); ABSOLUTE NEUT (AUTO) 2.2 10^3/uL (1.7-8.2); BASOPHILS % (AUTO) 0.9 % (0-2); EOSINOPHILS % (AUTO) 0.1 % (0-6); HEMATOCRIT 37.6 % (36.0-47.0); HEMOGLOBIN 12.2 g/dL (12.0-15.5); LYMPHOCYTES % (AUTO) 37.1 % (13-45); MEAN CORPUSCULAR HEMOGLOBIN 26.5 pg (27.0-33.4); MEAN CORPUSCULAR HGB CONC 32.4 g/dL (32.0-36.0); MEAN CORPUSCULAR VOLUME 82 fl (80-97); MONOCYTES % (AUTO) 7.5 % (3-13); PLATELET COUNT 207 10^3/uL (150-450); RED CELL DISTRIBUTION WIDTH 16.7 % (11.5-14.0); SEGMENTED NEUTROPHILS % (AUTO) 54.4 % (42-78); TOTAL CELLS COUNTED % (AUTO) 100 %
[2018-02-18 11:19] LABS: ANION GAP 12 (5-19); BLOOD UREA NITROGEN 28 mg/dL (7-20); CALCIUM 9.2 mg/dL (8.4-10.2); CARBON DIOXIDE 22 mmol/L (22-30); CHLORIDE 113 mmol/L (98-107); GLUCOSE 93 mg/dL (75-110); POTASSIUM 4.1 mmol/L (3.6-5.0)
[2018-02-18] MEDS ORDERED: AZITHROMYCIN INJ 500 MG VIAL IV ONE (11:25)
[2018-02-18] MEDS ORDERED: CEFTRIAXONE INJ 1000 MG VIAL IV ONE (11:25)
[2018-02-18] MEDS ORDERED: NORMAL SALINE 1000 ML 1,000 ML IV ONE (11:25)
--- NOTE | 2018-02-18 11:27 | ER Document Report ---
ED General - General Chief Complaint: Chest Pain Stated Complaint: SHORTNESS OF BREATH Time Seen by Provider: 02/18/18 09:29 Mode of Arrival: Ambulatory Information source: Patient TRAVEL OUTSIDE OF THE [place] IN LAST 30 DAYS: No - HPI Patient complains to provider of: Chest pain, cough, shortness of breath Onset: Last week Onset/Duration: Gradual, Persistent Quality of pain: Achy Severity: Moderate Pain Level: 3 Associated symptoms: Chest pain, Productive cough, Shortness of breath Exacerbated by: Denies Relieved by: Denies Similar symptoms previously: Yes Recently seen / treated by doctor: Yes Notes: Patient is a 62-year-old female presenting to the emergency room complaining of persistent cough 2 weeks, over the past week she has developed some left-sided chest pain with shortness of breath as well, cough is productive of whitish colored phlegm, she denies any fever, she previously saw her primary care provider who prescribed her Tessalon and Pepcid for her symptoms but they have not gotten any better - Related Data Allergies/Adverse Reactions: sulfamethoxazole [From Bactrim] Allergy (Verified 02/18/18 09:15) trimethoprim [From Bactrim] Allergy (Verified 02/18/18 09:15) aspirin [Aspirin] Adverse Reaction (Verified 02/18/18 09:15) Home Medications: losartan, amlodipine, calcitriol, colcrys, denzonate, ranitidine Past Medical History - General Information source: Patient - Social History Smoking Status: Former Smoker Chew tobacco use (# tins/day): No Frequency of alcohol use: None Drug Abuse: None Family History: CAD, Hypertension Patient has suicidal ideation: No Patient has homicidal ideation: No - Past Medical History Cardiac Medical History: Reports: Hx Congestive Heart Failure, Hx Coronary Artery Disease, Hx Heart Attack - [place] 2013, Hx Hypercholesterolemia, Hx Hypertension Pulmonary Medical History: Denies: Hx Asthma, Hx Bronchitis, Hx COPD, Hx Pneumonia, Hx Tuberculosis Neurological Medical History: Denies: Hx Cerebrovascular Accident, Hx Seizures Renal/ Medical History: Reports: Hx End Stage Renal Disease, Hx Renal Insufficiency - Status post left nephrectomy for renal cell CA. Denies: Hx Peritoneal Dialysis Malignancy Medical History: Reports: Hx Pancreatic Cancer - Mass to the pancreatic tail 07/2015., Hx Renal (Kidney) Cancer GI Medical History: Reports: Hx Gastritis, Hx Gastroesophageal Reflux Disease Musculoskeletal Medical History: Reports Hx Arthritis - Right hip DJD Past Surgical History: Reports: Hx Abdominal Surgery - HERNIA, PERFORATED BOWEL , Hx Cholecystectomy, Hx Herniorrhaphy - Umbilical hernia repair complicated by bowel perforation, Hx Kidney (Renal Surgery). Denies: Hx Hysterectomy - Immunizations Hx Diphtheria, Pertussis, Tetanus Vaccination: No Hx Pneumococcal Vaccination: 08/03/10 Review of Systems - Review of Systems Constitutional: No symptoms reported EENT: No symptoms reported Cardiovascular: See HPI Respiratory: See HPI Gastrointestinal: No symptoms reported Genitourinary: No symptoms reported Female Genitourinary: No symptoms reported Musculoskeletal: No symptoms reported Skin: No symptoms reported Hematologic/Lymphatic: No symptoms reported Neurological/Psychological: No symptoms reported -: Yes All other systems reviewed and negative Physical Exam - Vital signs Vitals: Temp Pulse Resp BP Pulse Ox 98.5 F 87 18 148/96 H 100 02/18/18 09:17 02/18/18 09:17 02/18/18 09:17 02/18/18 09:17 02/18/18 09:17 Interpretation: Normal - General General appearance: Appears well, Alert - HEENT Head: Normocephalic, Atraumatic Eyes: Normal Pupils: PERRL - Respiratory Respiratory status: No respiratory distress Chest status: Nontender Breath sounds: Normal Chest palpation: Normal - Cardiovascular Rhythm: Regular Heart sounds: Normal auscultation Murmur: No - Abdominal Inspection: Normal Distension: No distension Bowel sounds: Normal Tenderness: Nontender Organomegaly: No organomegaly - Back Back: Normal, Nontender - Extremities General upper extremity: Normal inspection, Nontender, Normal color, Normal ROM , Normal temperature General lower extremity: Normal inspection, Nontender, Normal color, Normal ROM , Normal temperature, Normal weight bearing. No: Sami's sign - Neurological Neuro grossly intact: Yes Cognition: Normal Orientation: AAOx4 [place] Coma Scale Eye Opening: Spontaneous Justin Coma Scale Verbal: Oriented Justin Coma Scale Motor: Obeys Commands Justin Coma Scale Total: 15 Speech: Normal Motor strength normal: LUE, RUE, LLE, RLE Sensory: Normal - Psychological Associated symptoms: Normal affect, Normal mood - Skin Skin Temperature: Warm Skin Moisture: Dry Skin Color: Normal Course - Re-evaluation Re-evalutation: 02/18/18 15:22 Imaging findings consistent with pneumonia, patient given IV antibiotics, otherwise vital signs and labs are unremarkable, she is agreeable to outpatient treatment, but was given strict return precautions and advised to follow-up with her primary care provider, patient and son at bedside acknowledge understanding and agreement with this plan - Vital Signs Vital signs: Temp Pulse Resp BP Pulse Ox 98.5 F 87 26 H 148/96 H 100 02/18/18 09:17 02/18/18 09:17 02/18/18 13:04 02/18/18 09:17 02/18/18 12:00 - Laboratory Result Diagrams: 02/18/18 10:41 02/18/18 10:41 Laboratory results interpreted by me: 02/18/18 02/18/18 02/18/18 10:41 10:41 10:41 MCH 26.5 L RDW 16.7 H Sodium 147.0 H Chloride 113 H BUN 28 H Creatinine 1.55 H Est GFR ( Amer) 41 L Est GFR (Non-Af Amer) 34 L NT-Pro-B Natriuret Pep 923 H Urine Protein 02/18/18 12:32 MCH RDW Sodium Chloride BUN Creatinine Est GFR ( Amer) Est GFR (Non-Af Amer) NT-Pro-B Natriuret Pep Urine Protein 100 H - Diagnostic Test Radiology reviewed: Image reviewed, Reports reviewed - EKG Interpretation by Me EKG shows normal: Sinus rhythm Rate: Normal Rhythm: NSR Discharge - Discharge Clinical Impression: Pneumonia Qualifiers: Pneumonia type: due to unspecified organism Laterality: right Lung location: upper lobe of lung Qualified Code(s): J18.1 - Lobar pneumonia, unspecified organism Condition: Stable Disposition: HOME, SELF-CARE Instructions: Pneumonia ([facility]) Additional Instructions: Follow up with your primary care provider in one to 2 days. Return to the emergency room immediately if symptoms worsen or any additional concerns. Prescriptions: Azithromycin [Zithromax 250 mg Tablet] 250 mg PO ASDIR PRN #6 tablet PRN Reason: Referrals: RACHEAL CARLSON MD [Primary Care Provider] - Follow up as needed
[2018-02-18 12:13] LABS: TROPONIN I 0.013 ng/mL
[2018-02-18 13:11] LABS: APPEARANCE,URINE CLEAR; BILIRUBIN,URINE NEGATIVE (NEGATIVE); COLOR,URINE YELLOW; GLUCOSE, URINE NEGATIVE (NEGATIVE); KETONES,URINE NEGATIVE (NEGATIVE); LEUKOCYTE ESTERASE,URINE NEGATIVE (NEGATIVE); NITRITE,URINE NEGATIVE (NEGATIVE); PROTEIN,URINE 100 mg/dL (NEGATIVE); URINE SPECIFIC GRAVITY 1.012; UROBILINOGEN,URINE NEGATIVE mg/dL (<2.0)
--- NOTE | 2018-02-18 13:13 | RADIOLOGY REPORT (SQ) ---
EXAM DESCRIPTION: CTA CHEST COMPLETED DATE/TIME: 02/18/2018 12:23 pm REASON FOR STUDY: SOB COMPARISON: Chest x-ray dated 02/18/[address] scan April 2016 TECHNIQUE: CT scan of the chest performed using helical scanning technique with dynamic intravenous contrast injection. Images reviewed with lung, soft tissue and bone windows. Reconstructed coronal and sagittal MPR images reviewed. Additional 3 dimensional post-processing performed to develop Maximal Intensity Projection images ([place] P). All images stored on PACS. All CT scanners at this facility use dose modulation, iterative reconstruction, and/or weight based d osing when appropriate to reduce radiation dose to as low as reasonably achievable (ALARA). [facility]: Dose Right [facility]: CareDose [facility]: Dose Right [facility]: Teradose 4D [facility]: BitPass CONTRAST TYPE AND DOSE: contrast/concentration: Isovue 300.00 mg/ml; Total Contrast Delivered: 72.0 ml; Total Saline Delivered: 90.0 ml Contrast bolus optimized for the pulmonary arteries. Not diagnostic for the aorta. RENAL FUNCTION: Creatinine 1.55 RADIATION DOSE: CT Rad equipment meets quality standard of care and radiation dose reduction techniq ues were employed. CTDIvol: 13.5 - 26.3 mGy. DLP: 534 mGy-cm. . LIMITATIONS: None. FINDINGS: LUNGS AND PLEURA: There is a focal ground-glass density in the right upper lung field late rally which appears slightly more pronounced as compared to the previous CT scan in correlates with t he ill-defined density identified on the chest x-ray. This density has been previously biopsied yoder andriy further followup is recommended. Remaining lung dawn are clear. No pleural effusions are iden tified AORTA AND GREAT VESSELS: No aneurysm. Contrast bolus not optimized for the aorta. HEART: No pericardial effusion. No significant coronary artery calcifications. PULMONARY ARTERIES: No emboli visualized in the main pulmonary arteries or the segmental branches. HILAR AND MEDIASTINAL STRUCTURES: No identified masses or abnormal nodes. HARDWARE: None in the chest. UPPER ABDOMEN: No significant findings. Limited exam. THYROID AND OTHER SOFT TISSUES: There is enlargement of the right lobe of the thyroid gland with a no dule being identified unchanged from the previous study BONES: No acute or significant finding. 3D MIPS: Confirm above findings. OTHER: No other significant finding. IMPRESSION: No evidence for pulmonary embolic disease. Focal ground-glass density in the right uppe r lung field as noted above which appears slightly more pronounced as compared to the previous CT sca n in correlates with the ill-defined density identified on the chest x-ray. Further followup is david mmended as noted above. Remaining lung dawn are clear. No pleural effusions are identified. Othe r findings as noted above COMMENT: Quality ID # [id number]: Final reports with documentation of one or more dose reduction techniques (e.g., Automated exposure control, adjustment of the mA and/or kV according to patient size, use of iterative reconstruction technique) TECHNICAL DOCUMENTATION: JOB ID: [id number] [employer]- All Rights Reserved Reading location - IP/workstation name: [email or web address]
[2018-02-18 16:58] VITALS: BP 171/91
--- NOTE | 2018-02-18 23:09 | EKG REPORT ---
SEVERITY:- ABNORMAL ECG - SINUS RHYTHM LEFT VENTRICULAR HYPERTROPHY : Confirmed by: Ishaan Mckinley 18-Feb-2018 23:08:33
== END 2018-02-18 17:01 | disposition home or self-care (01) ==
LOC: ER 09:14
DX: J18.1 Lobar pneumonia, unspecified organism (principal); R07.9 Chest pain, unspecified; R06.02 Shortness of breath; R05 Cough; I25.10 Atherosclerotic heart disease of native coronary artery without angina pectoris; I25.2 Old myocardial infarction; I10 Essential (primary) hypertension; K21.9 Gastro-esophageal reflux disease without esophagitis; Z79.899 Other long term (current) drug therapy; Z90.5 Acquired absence of kidney; Z88.1 Allergy status to other antibiotic agents
CPT/HCPCS: 93005; 99285; 96361; 96365; 96367; 36415; 87040; 87086; 85025; 87088; 80048; 81001; 84484; 87186; 83880; 71046; 71275; 93010; A9270; J0696; J7030; J0456

== ENCOUNTER → 2018-04-29 | Outpatient (CLI) | payer MEDICARE, MEDICAID ==
[2018-04-29 09:30] LABS: ABSOLUTE BASOPHILS # (AUTO) 0.1 10^3/uL (0.0-0.2); ABSOLUTE LYMPHOCYTES (AUTO) 2.5 10^3/uL (0.5-4.7); ABSOLUTE MONOCYTES (AUTO) 0.4 10^3/uL (0.1-1.4); ABSOLUTE NEUT (AUTO) 2.8 10^3/uL (1.7-8.2); BASOPHILS % (AUTO) 1.1 % (0-2); HEMATOCRIT 34.5 % (36.0-47.0); HEMOGLOBIN 11.2 g/dL (12.0-15.5); LYMPHOCYTES % (AUTO) 43.8 % (13-45); MEAN CORPUSCULAR HEMOGLOBIN 26.7 pg (27.0-33.4); MEAN CORPUSCULAR HGB CONC 32.5 g/dL (32.0-36.0); MEAN CORPUSCULAR VOLUME 82 fl (80-97); MONOCYTES % (AUTO) 6.8 % (3-13); RED BLOOD COUNT 4.21 10^6/uL (3.72-5.28); RED CELL DISTRIBUTION WIDTH 16.5 % (11.5-14.0); SEGMENTED NEUTROPHILS % (AUTO) 48.3 % (42-78); TOTAL CELLS COUNTED % (AUTO) 100 %; WHITE BLOOD COUNT 5.8 10^3/uL (4.0-10.5)
[2018-04-29 09:30] LABS: APPEARANCE,URINE SLIGHTLY-CLOUDY; BILIRUBIN,URINE NEGATIVE (NEGATIVE); COLOR,URINE YELLOW; GLUCOSE, URINE NEGATIVE (NEGATIVE); KETONES,URINE NEGATIVE (NEGATIVE); LEUKOCYTE ESTERASE,URINE NEGATIVE (NEGATIVE); NITRITE,URINE NEGATIVE (NEGATIVE); PROTEIN,URINE 100 mg/dL (NEGATIVE); URINE SPECIFIC GRAVITY 1.011; UROBILINOGEN,URINE NEGATIVE mg/dL (<2.0)
[2018-04-29 09:46] LABS: PLATELET COUNT 177 10^3/uL (150-450)
[2018-04-29 09:51] LABS: ALBUMIN 3.8 g/dL (3.5-5.0); ANION GAP 11 (5-19); BLOOD UREA NITROGEN 31 mg/dL (7-20); CALCIUM 9.6 mg/dL (8.4-10.2); CARBON DIOXIDE 19 mmol/L (22-30); CHLORIDE 114 mmol/L (98-107); GLUCOSE 96 mg/dL (75-110); PHOSPHORUS 4.1 mg/dL (2.5-4.5); POTASSIUM 4.3 mmol/L (3.6-5.0); SODIUM 144.2 mmol/L (137-145)
[2018-04-30 11:40] LABS: CREATININE URINE 75.1 mg/dL (Not Estab.); MICROALBUMIN URINE 238.5 ug/mL (Not Estab.)
== END ==
LOC: OD 08:26
PROVIDERS: ATTEND Internal Medicine Nephrology
DX: I12.9 Hypertensive chronic kidney disease with stage 1 through stage 4 chronic kidney disease, or unspecified chronic kidney disease (principal); N18.3 Chronic kidney disease, stage 3 (moderate); R80.9 Proteinuria, unspecified; N25.81 Secondary hyperparathyroidism of renal origin
CPT/HCPCS: 36415; 80048; 81001; 82040; 82043; 82306; 82570; 83970; 84100; 85025

== ENCOUNTER → 2018-08-04 | Outpatient (CLI) | payer MEDICARE, MEDICAID ==
[2018-08-04 08:58] LABS: HEMATOCRIT 35.3 % (36.0-47.0); HEMOGLOBIN 11.4 g/dL (12.0-15.5); MEAN CORPUSCULAR HEMOGLOBIN 26.3 pg (27.0-33.4); MEAN CORPUSCULAR HGB CONC 32.2 g/dL (32.0-36.0); MEAN CORPUSCULAR VOLUME 82 fl (80-97); PLATELET COUNT 227 10^3/uL (150-450); RED BLOOD COUNT 4.32 10^6/uL (3.72-5.28); RED CELL DISTRIBUTION WIDTH 16.5 % (11.5-14.0); WHITE BLOOD COUNT 3.6 10^3/uL (4.0-10.5)
[2018-08-04 09:00] LABS: ANION GAP 8 (5-19); BLOOD UREA NITROGEN 29 mg/dL (7-20); CALCIUM 9.2 mg/dL (8.4-10.2); CARBON DIOXIDE 26 mmol/L (22-30); CHLORIDE 112 mmol/L (98-107); GLUCOSE 98 mg/dL (75-110); POTASSIUM 4.2 mmol/L (3.6-5.0); SODIUM 145.6 mmol/L (137-145)
[2018-08-04 09:27] LABS: UR PRO/CREAT RATIO RESULT 0.5 mg/mg (0.0-0.2); URINE CREATININE 175.2 mg/dL (15-278); URINE PROTEIN 83.3 mg/dL (<12)
[2018-08-04 09:36] LABS: ABSOLUTE LYMPHOCYTES# (MANUAL) 1.4 10^3/uL (0.5-4.7); ABSOLUTE MONOCYTES # (MANUAL) 0.1 10^3/uL (0.1-1.4); ABSOLUTE NEUTROPHILS# (MANUAL) 2.1 10^3/uL (1.7-8.2); ANISOCYTOSIS 1+; BASOPHILS % (MANUAL) 0 % (0-2); EOSINOPHILS % (MANUAL) 0 % (0-6); LYMPHOCYTES % (MANUAL) 34 % (13-45); MONOCYTES % (MANUAL) 4 % (3-13); OVALOCYTES SLIGHT; PLATELET COMMENT ADEQUATE; POIKILOCYTOSIS SLIGHT; SEGMENTED NEUTROPHILS % (MAN) 57 % (42-78); TOTAL CELLS COUNTED 100; TOXIC GRANULATION SLIGHT; TOXIC VACUOLATION PRESENT
== END ==
LOC: OD 08:09
PROVIDERS: ATTEND Internal Medicine Nephrology
DX: N18.3 Chronic kidney disease, stage 3 (moderate) (principal); N25.81 Secondary hyperparathyroidism of renal origin; N18.9 Chronic kidney disease, unspecified
CPT/HCPCS: 36415; 80048; 82570; 83970; 84156; 85025

== ENCOUNTER → 2018-11-02 | Outpatient (CLI) | payer MEDICARE, MEDICAID ==
[2018-11-02 11:32] LABS: ABSOLUTE LYMPHOCYTES (AUTO) 1.1 10^3/uL (0.5-4.7); ABSOLUTE MONOCYTES (AUTO) 0.3 10^3/uL (0.1-1.4); ABSOLUTE NEUT (AUTO) 2.3 10^3/uL (1.7-8.2); BASOPHILS % (AUTO) 0.8 % (0-2); EOSINOPHILS % (AUTO) 0.1 % (0-6); HEMATOCRIT 34.9 % (36.0-47.0); HEMOGLOBIN 11.3 g/dL (12.0-15.5); LYMPHOCYTES % (AUTO) 29.6 % (13-45); MEAN CORPUSCULAR HEMOGLOBIN 26.5 pg (27.0-33.4); MEAN CORPUSCULAR HGB CONC 32.4 g/dL (32.0-36.0); MEAN CORPUSCULAR VOLUME 82 fl (80-97); MONOCYTES % (AUTO) 8.7 % (3-13); PLATELET COUNT 211 10^3/uL (150-450); RED BLOOD COUNT 4.28 10^6/uL (3.72-5.28); RED CELL DISTRIBUTION WIDTH 16.7 % (11.5-14.0); SEGMENTED NEUTROPHILS % (AUTO) 60.8 % (42-78); TOTAL CELLS COUNTED % (AUTO) 100 %; WHITE BLOOD COUNT 3.8 10^3/uL (4.0-10.5)
[2018-11-02 11:37] LABS: APPEARANCE,URINE CLEAR; BILIRUBIN,URINE NEGATIVE (NEGATIVE); COLOR,URINE YELLOW; GLUCOSE, URINE NEGATIVE (NEGATIVE); KETONES,URINE TRACE mg/dL (NEGATIVE); LEUKOCYTE ESTERASE,URINE NEGATIVE (NEGATIVE); NITRITE,URINE NEGATIVE (NEGATIVE); PROTEIN,URINE 100 mg/dL (NEGATIVE); URINE SPECIFIC GRAVITY 1.018; UROBILINOGEN,URINE NEGATIVE mg/dL (<2.0)
[2018-11-02 11:51] LABS: ANION GAP 10 (5-19); BLOOD UREA NITROGEN 25 mg/dL (7-20); CALCIUM 9.4 mg/dL (8.4-10.2); CARBON DIOXIDE 23 mmol/L (22-30); CHLORIDE 110 mmol/L (98-107); GLUCOSE 116 mg/dL (75-110); PHOSPHORUS 3.5 mg/dL (2.5-4.5); POTASSIUM 4.1 mmol/L (3.6-5.0); SODIUM 143.4 mmol/L (137-145)
[2018-11-02 12:09] LABS: UR PRO/CREAT RATIO RESULT 0.4 mg/mg (0.0-0.2); URINE CREATININE 253.1 mg/dL (15-278); URINE PROTEIN 102.1 mg/dL (<12)
== END ==
LOC: OD 10:36
PROVIDERS: ATTEND Internal Medicine Nephrology
DX: I12.9 Hypertensive chronic kidney disease with stage 1 through stage 4 chronic kidney disease, or unspecified chronic kidney disease (principal); N18.3 Chronic kidney disease, stage 3 (moderate); R80.9 Proteinuria, unspecified; D64.9 Anemia, unspecified
CPT/HCPCS: 36415; 80069; 81001; 82306; 82570; 83970; 84156; 85025

== ENCOUNTER 2018-11-22 00:52 | Emergency (ER) | payer MEDICARE, MEDICAID ==
--- NOTE | 2018-11-22 01:02 | ER Document Report ---
ED General - General Stated Complaint: TROUBLE BREATHING Time Seen by Provider: 11/22/18 01:02 Primary Care Provider: RACHEAL CARLSON MD [Primary Care Provider] - Follow up as needed Notes: Patient is a 63-year-old female with history of lung cancer that presents to the emergency department for chief complaint of shortness of breath. Patient states that she was coughing, and started having pain on the right side, and felt short of breath so she decided come to the emergency department. This started occurring about 1 hour ago. She currently rates her pain as a 4 out of 10 describes as a sharp pain worse with a deep breath. It started right after coughing. She did have a partial lung resection on the right on the ninth of this month, that was performed at [facility], for her lung cancer. She states she did have a chest tube that was removed about 1 week ago, prior to her discharge. Denies any recent fevers, chills, night sweats, nausea, vomiting, abdominal pain. Past Medical History: Lung cancer, hypertension, CHF Past Surgical History: Partial lung resection Social History: Former smoker, denies alcohol or drug use. Family History: Reviewed and noncontributory for presenting illness Allergies: Reviewed, see documented allergy list. REVIEW OF SYSTEMS: Other than noted above, the 12 point review of systems was reviewed with the patient and were negative, all pertinent findings are included in the HPI. PHYSICAL EXAMINATION: Vital signs reviewed, nursing noted reviewed. GENERAL: Well-developed, well-nourished, patient does appear to be in respiratory distress, conversational dyspnea HEAD: Atraumatic, normocephalic. EYES: Eyes appear normal, extraocular movements intact, sclera anicteric, conjunctiva are normal. ENT: nares patent, oropharynx clear without exudates. Moist mucous membranes. NECK: Normal range of motion, supple without lymphadenopathy LUNGS: Mild wheezing noted throughout all lung dawn, increased work of breathing, moderate respiratory distress, lung sounds present in all lung dawn. HEART: Regular rate and rhythm without murmurs ABDOMEN: Soft, nontender, normoactive bowel sounds. No rebound, guarding, or rigidity. No masses appreciated. EXTREMITIES: Nontender, good range of motion, no pitting or edema. NEUROLOGICAL: No focal neurological deficits. Moves all extremities spontaneously Motor and sensory grossly intact on exam. PSYCH: Patient appears rather anxious on exam. SKIN: Warm, Dry, normal turgor, no rashes or lesions noted on exposed skin TRAVEL OUTSIDE OF THE [place] IN LAST 30 DAYS: No - Related Data Allergies/Adverse Reactions: sulfamethoxazole [From Bactrim] Allergy (Verified 02/18/18 09:15) trimethoprim [From Bactrim] Allergy (Verified 02/18/18 09:15) aspirin [Aspirin] Adverse Reaction (Verified 02/18/18 09:15) Past Medical History - Social History Smoking Status: Former Smoker Family History: CAD, Hypertension - Past Medical History Cardiac Medical History: Reports: Hx Congestive Heart Failure, Hx Coronary Artery Disease, Hx Heart Attack - [place] 2013, Hx Hypercholesterolemia, Hx Hypertension Pulmonary Medical History: Denies: Hx Asthma, Hx Bronchitis, Hx COPD, Hx Pneumonia, Hx Tuberculosis Neurological Medical History: Denies: Hx Cerebrovascular Accident, Hx Seizures Renal/ Medical History: Reports: Hx End Stage Renal Disease, Hx Renal Insuffic iency - Status post left nephrectomy for renal cell CA. Denies: Hx Peritoneal Dialysis Malignancy Medical History: Reports: Hx Pancreatic Cancer - Mass to the pancreatic tail 07/2015., Hx Renal (Kidney) Cancer GI Medical History: Reports: Hx Gastritis, Hx Gastroesophageal Reflux Disease Musculoskeletal Medical History: Reports Hx Arthritis - Right hip DJD Past Surgical History: Reports: Hx Abdominal Surgery - HERNIA, PERFORATED BOWEL, Hx Cholecystectomy, Hx Herniorrhaphy - Umbilical hernia repair complicated by bowel perforation, Hx Kidney (Renal Surgery). Denies: Hx Hysterectomy - Immunizations Hx Diphtheria, Pertussis, Tetanus Vaccination: No Hx Pneumococcal Vaccination: 08/03/10 Physical Exam - Vital signs Vitals: Pulse Ox 100 11/22/18 01:02 Course - Re-evaluation Re-evalutation: Patient seen and examined vital signs reviewed. Laboratory data and/or imaging were ordered as appropriate for the patient's presenting symptoms and complaint, with consideration of any critical or life threatening conditions that may be associated with their obtained history and exam as noted above. Patient was treated with DuoNeb breathing treatment, morphine, Zofran, and given Hycodan tablets for her cough Results were reviewed when available and demonstrated negative chest x-ray, aside from elevated right hemidiaphragm which should be expected after the patient's partial lung resection., No evidence of pneumonia, no pneumothorax. The patient was re-evaluated and was stable and improved, overall breathing was more relaxed. Patient's blood resulted, troponin was negative, potassium slightly low 3.3, given oral replacement. Evaluation was most consistent with cough, shortness of breath. Patient likely having a coughing spell, which triggered bronchospasm, from the patient's recent surgery, will prescribe her Hycodan syrup, and advised using her albuterol inhaler for the next 2-3 days on a regular basis. Results were discussed with the patient at this point, after careful consideration I feel that that patient can be discharged from the emergency department, the patient was educated treatments and reasons to return to the emergency department based on their presumed diagnosis as noted above, they were advised to followup with a primary care physician in 2-3 days. Patient was agreeable to plan of care. *Note is created using voice recognition software and may contain spelling, syntax or grammatical errors. Chest X-Ray 11/22/18 01:02 IMPRESSION: No acute findings. No focal lung consolidation. Laboratory 11/22/18 11/22/18 11/22/18 02:00 02:00 02:00 WBC 5.6 RBC 3.90 Hgb 10.3 L Hct 32.0 L MCV 82 MCH 26.4 L MCHC 32.2 RDW 16.2 H Plt Count 409 Seg Neutrophils % 65.3 Lymphocytes % 27.2 Monocytes % 6.0 Eosinophils % 0.1 Basophils % 1.4 Absolute Neutrophils 3.7 Absolute Lymphocytes 1.5 Absolute Monocytes 0.3 Absolute Eosinophils 0.0 Absolute Basophils 0.1 Sodium Cancelled Potassium Cancelled Chloride Cancelled Carbon Dioxide Cancelled Anion Gap Cancelled BUN Cancelled Creatinine Cancelled Est GFR ( Amer) Cancelled Est GFR (Non-Af Amer) Cancelled Glucose Cancelled Calcium Cancelled Total Bilirubin Cancelled Direct Bilirubin Cancelled Neonat Total Bilirubin Cancelled Neonat Direct Bilirubin Cancelled Neonat Indirect Bili Cancelled AST Cancelled ALT Cancelled Alkaline Phosphatase Cancelled Troponin I Cancelled Total Protein Cancelled Albumin Cancelled 11/22/18 11/22/18 04:03 04:03 WBC RBC Hgb Hct MCV MCH MCHC RDW Plt Count Seg Neutrophils % Lymphocytes % Monocytes % Eosinophils % Basophils % Absolute Neutrophils Absolute Lymphocytes Absolute Monocytes Absolute Eosinophils Absolute Basophils Sodium 144.7 Potassium 3.3 L Chloride 114 H Carbon Dioxide 21 L Anion Gap 10 BUN 23 H Creatinine 1.52 H Est GFR ( Amer) 42 L Est GFR (Non-Af Amer) 35 L Glucose 119 H Calcium 9.2 Total Bilirubin 0.4 Direct Bilirubin 0.4 Neonat Total Bilirubin Not Reportable Neonat Direct Bilirubin Not Reportable Neonat Indirect Bili Not Reportable AST 35 ALT 19 Alkaline Phosphatase 101 Troponin I < 0.012 Total Protein 7.5 Albumin 3.8 Chest X-Ray 11/22/18 01:02 IMPRESSION: No acute findings. No focal lung consolidation. - Vital Signs Vital signs: Temp Pulse Resp BP Pulse Ox 22 H 171/95 H 97 11/22/18 04:01 11/22/18 04:01 11/22/18 04:01 - Laboratory Result Diagrams: 11/22/18 02:00 11/22/18 04:03 Laboratory results interpreted by me: 11/22/18 11/22/18 02:00 04:03 Hgb 10.3 L Hct 32.0 L MCH 26.4 L RDW 16.2 H Potassium 3.3 L Chloride 114 H Carbon Dioxide 21 L BUN 23 H Creatinine 1.52 H Est GFR ( Amer) 42 L Est GFR (Non-Af Amer) 35 L Glucose 119 H - EKG Interpretation by Me Additional EKG results interpreted by me: EKG demonstrates sinus rhythm with a ventricular rate of 76 bpm, left axis deviation, QTC 491 ms, no evidence of acute ischemia in this EKG. Discharge - Discharge Clinical Impression: Cough Dyspnea Qualifiers: Dyspnea type: unspecified Qualified Code(s): R06.00 - Dyspnea, unspecified Condition: Stable Disposition: HOME, SELF-CARE Instructions: Cough Suppressant & Expectorant Medications Additional Instructions: Please use your albuterol inhaler 2 puffs, 3 times daily for the next 2-3 days, please follow-up with your lung doctor, and if you develop worsening symptoms, do not hesitate to return to the emergency department. Prescriptions: Hydrocodone Bit/Homatrop Me-Br [Hydrocodone-Homatropine Syrup] 5 ml PO Q6H PRN #100 syrup PRN Reason: Cough Referrals: ARCHEAL CARLSON MD [Primary Care Provider] - Follow up as needed
[2018-11-22] MEDS ORDERED: MORPHINE SULFATE 10 MG/ML INJ IV ONE (01:03)
[2018-11-22] MEDS ORDERED: IPRATROPIUM/ALBUTEROL 0.5-2.5 MG/3 ML AMPUL NEB ONE (01:03)
[2018-11-22] MEDS ORDERED: ONDANSETRON HCL INJ/PF 4 MG/2 ML SDV IV ONE (01:03)
--- NOTE | 2018-11-22 02:02 | RADIOLOGY REPORT (SQ) ---
EXAM DESCRIPTION: XR CHEST 1 VIEW COMPLETED DATE/TME: 11/22/2018 01:02 CLINICAL HISTORY: 63 years, Female, shortness of breath Comparison: None FINDINGS: No focal lung consolidation. Elevated right hemidiaphragm. No pleural effusion. No pneumothorax. Cardiac and mediastinal silhouette is unremarkable. No acute osseous abnormality. Soft tissues are unremarkable. IMPRESSION: No acute findings. No focal lung consolidation.
[2018-11-22 02:11] LABS: ABSOLUTE BASOPHILS # (AUTO) 0.1 10^3/uL (0.0-0.2); ABSOLUTE LYMPHOCYTES (AUTO) 1.5 10^3/uL (0.5-4.7); ABSOLUTE MONOCYTES (AUTO) 0.3 10^3/uL (0.1-1.4); ABSOLUTE NEUT (AUTO) 3.7 10^3/uL (1.7-8.2); BASOPHILS % (AUTO) 1.4 % (0-2); EOSINOPHILS % (AUTO) 0.1 % (0-6); HEMOGLOBIN 10.3 g/dL (12.0-15.5); LYMPHOCYTES % (AUTO) 27.2 % (13-45); MEAN CORPUSCULAR HEMOGLOBIN 26.4 pg (27.0-33.4); MEAN CORPUSCULAR HGB CONC 32.2 g/dL (32.0-36.0); MEAN CORPUSCULAR VOLUME 82 fl (80-97); PLATELET COUNT 409 10^3/uL (150-450); RED CELL DISTRIBUTION WIDTH 16.2 % (11.5-14.0); SEGMENTED NEUTROPHILS % (AUTO) 65.3 % (42-78); TOTAL CELLS COUNTED % (AUTO) 100 %; WHITE BLOOD COUNT 5.6 10^3/uL (4.0-10.5)
[2018-11-22] MEDS ORDERED: HYDROCODONE BIT/HOMATROPINE SYRUP 5 ML UDCUP PO ONE (02:16)
[2018-11-22] MEDS ORDERED: HYDROCODONE BIT/HOMATROPINE 5-1.5 MG TABLET ONE (02:38)
[2018-11-22 04:37] LABS: ALANINE AMINOTRANSFERASE 19 U/L (9-52); ALBUMIN 3.8 g/dL (3.5-5.0); ALKALINE PHOSPHATASE 101 U/L (38-126); ANION GAP 10 (5-19); ASPARTATE AMINO TRANSFERASE 35 U/L (14-36); BILIRUBIN,DIRECT 0.4 mg/dL (0.0-0.4); BILIRUBIN,TOTAL 0.4 mg/dL (0.2-1.3); BLOOD UREA NITROGEN 23 mg/dL (7-20); CALCIUM 9.2 mg/dL (8.4-10.2); CARBON DIOXIDE 21 mmol/L (22-30); CHLORIDE 114 mmol/L (98-107); GLUCOSE 119 mg/dL (75-110); POTASSIUM 3.3 mmol/L (3.6-5.0); SODIUM 144.7 mmol/L (137-145); TOTAL PROTEIN 7.5 g/dL (6.3-8.2)
[2018-11-22] MEDS ORDERED: POTASSIUM CHLORIDE 10 MEQ CAPSULE.ER PO ONE (04:44)
[2018-11-22 05:48] VITALS: BP 170/98
--- NOTE | 2018-11-22 07:21 | EKG REPORT ---
SEVERITY:- ABNORMAL ECG - SINUS RHYTHM PROBABLE LEFT VENTRICULAR HYPERTROPHY BORDERLINE PROLONGED QT INTERVAL NONSPECIFIC ST-T CHANGES- INFERIOR LEADS : Confirmed by: Pascual Rosenthal MD 22-Nov-2018 07:21:09
== END 2018-11-22 04:56 | disposition home or self-care (01) ==
LOC: ER 00:52
DX: R06.02 Shortness of breath (principal); R05 Cough; R06.2 Wheezing; R52 Pain, unspecified; I25.10 Atherosclerotic heart disease of native coronary artery without angina pectoris; I10 Essential (primary) hypertension; I25.2 Old myocardial infarction; Z85.118 Personal history of other malignant neoplasm of bronchus and lung; Z85.528 Personal history of other malignant neoplasm of kidney; Z85.07 Personal history of malignant neoplasm of pancreas; Z90.2 Acquired absence of lung [part of]; Z90.5 Acquired absence of kidney; Z88.1 Allergy status to other antibiotic agents; Z87.891 Personal history of nicotine dependence
CPT/HCPCS: 93005; 94640; 99285; 96374; 96375; 36415; 85025; 80053; 84484; 71045; 93010; A9270 ×3; J2270; J2405; J7620

== ENCOUNTER 2018-12-10 14:01 | Emergency (ER) | payer MEDICARE, MEDICAID ==
--- NOTE | 2018-12-10 15:12 | ER Document Report ---
ED Medical Screen (RME) - General Chief Complaint: Eye Problem Stated Complaint: VISION CHANGE Time Seen by Provider: 12/10/18 15:06 Primary Care Provider: RACHEAL CARLSON MD [Primary Care Provider] - Follow up as needed Mode of Arrival: Wheelchair Information source: Patient Notes: Patient presents complaining of white flashing light to the periphery of her field of vision involving her right eye that started yesterday. Patient states she has a floater in her field of vision. Patient reports mild headache and nausea. Patient is also concerned about a convexity in the apex of her scalp. Patient does report a history of lung cancer, hypertension and Sjogren's. I have greeted and performed a rapid initial assessment of this patient. A comprehensive ED assessment and evaluation of the patient, analysis of test results and completion of the medical decision making process will be conducted by additional ED providers. TRAVEL OUTSIDE OF THE [place] IN LAST 30 DAYS: No - Related Data Allergies/Adverse Reactions: sulfamethoxazole [From Bactrim] Allergy (Verified 12/10/18 14:07) trimethoprim [From Bactrim] Allergy (Verified 12/10/18 14:07) aspirin [Aspirin] Adverse Reaction (Verified 12/10/18 14:07) Past Medical History - Social History Chew tobacco use (# tins/day): No Frequency of alcohol use: None Drug Abuse: None Family history: Reviewed & Not Pertinent - Past Medical History Cardiac Medical History: Reports: Hx Congestive Heart Failure, Hx Coronary Artery Disease, Hx Heart Attack - [place] 2013, Hx Hypercholesterolemia, Hx Hypertension Pulmonary Medical History: Denies: Hx Asthma, Hx Bronchitis, Hx COPD, Hx Pneumonia, Hx Tuberculosis Neurological Medical History: Denies: Hx Cerebrovascular Accident, Hx Seizures Renal/ Medical History: Reports: Hx End Stage Renal Disease, Hx Renal Insufficiency - Status post left nephrectomy for renal cell CA. 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 Denies: Hx Hysterectomy - Immunizations Hx Diphtheria, Pertussis, Tetanus Vaccination: No Physical Exam - Vital signs Vitals: Temp Pulse Resp BP Pulse Ox 98.1 F 92 18 146/92 H 100 12/10/18 14:15 12/10/18 14:15 12/10/18 14:15 12/10/18 14:15 12/10/18 14:15 - General General appearance: Appears well, Alert Notes: 1.5 cm convexity to apex of scalp Course - Vital Signs Vital signs: Temp Pulse Resp BP Pulse Ox 98.1 F 92 18 146/92 H 100 12/10/18 14:15 12/10/18 14:15 12/10/18 14:15 12/10/18 14:15 12/10/18 14:15 Doctor's Discharge - Discharge Referrals: RACHEAL CARLSON MD [Primary Care Provider] - Follow up as needed
--- NOTE | 2018-12-10 15:59 | RADIOLOGY REPORT (SQ) ---
EXAM DESCRIPTION: CT HEAD WITHOUT COMPLETED DATE/TIME: 12/10/2018 3:46 pm REASON FOR STUDY: SORIANO, visual disturbance, apex of scalp convexity COMPARISON: 07/21/2014 TECHNIQUE: Axial images acquired through the brain without intravenous contrast. Images reviewed wi th bone, brain and subdural windows. Images stored on PACS. All CT scanners at this facility use dose modulation, iterative reconstruction, and/or weight based d osing when appropriate to reduce radiation dose to as low as reasonably achievable (ALARA). [facility]: Dose Right [facility]: CareDose [facility]: Dose Right [facility]: Teradose 4D [facility]: [employer] RADIATION DOSE: CT Rad equipment meets quality standard of care and radiation dose reduction techniq ues were employed. CTDIvol: 53.2 mGy. DLP: 991 mGy-cm. mGy. LIMITATIONS: None. FINDINGS: VENTRICLES: Normal size and contour. CEREBRUM: No masses. No hemorrhage. No midline shift. No evidence for acute infarction. Age-approp riate white matter. CEREBELLUM: No masses. No hemorrhage. No alteration of density. No evidence for acute infarction. EXTRAAXIAL SPACES: No fluid collections. No masses. ORBITS AND GLOBE: No intra- or extraconal masses. Normal contour of globe without masses. CALVARIUM: No fracture. PARANASAL SINUSES: No fluid or mucosal thickening. SOFT TISSUES: No mass or hematoma. OTHER: No other significant finding. IMPRESSION: No acute intracranial findings. EVIDENCE OF ACUTE STROKE: NO. COMMENT: Quality ID # [id number]: Final reports with documentation of one or more dose reduction techniques (e.g., Automated exposure control, adjustment of the mA and/or kV according to patient size, use of iterative reconstruction technique) TECHNICAL DOCUMENTATION: JOB ID: [id number] [place]-72 2010 [employer]- All Rights Reserved Reading location - IP/workstation name: Meta
[2018-12-10 16:55] LABS: ANION GAP 11 (5-19); BLOOD UREA NITROGEN 25 mg/dL (7-20); CALCIUM 9.7 mg/dL (8.4-10.2); CARBON DIOXIDE 21 mmol/L (22-30); CHLORIDE 112 mmol/L (98-107); GLUCOSE 105 mg/dL (75-110); POTASSIUM 4.1 mmol/L (3.6-5.0); SODIUM 144.1 mmol/L (137-145)
[2018-12-10 18:29] LABS: ABSOLUTE LYMPHOCYTES (AUTO) 1.3 10^3/uL (0.5-4.7); ABSOLUTE MONOCYTES (AUTO) 0.5 10^3/uL (0.1-1.4); ABSOLUTE NEUT (AUTO) 2.2 10^3/uL (1.7-8.2); BASOPHILS % (AUTO) 0.2 % (0-2); HEMATOCRIT 36.3 % (36.0-47.0); HEMOGLOBIN 11.5 g/dL (12.0-15.5); LYMPHOCYTES % (AUTO) 33.3 % (13-45); MEAN CORPUSCULAR HEMOGLOBIN 25.5 pg (27.0-33.4); MEAN CORPUSCULAR HGB CONC 31.6 g/dL (32.0-36.0); MEAN CORPUSCULAR VOLUME 81 fl (80-97); MONOCYTES % (AUTO) 11.4 % (3-13); PLATELET COUNT 270 10^3/uL (150-450); RED CELL DISTRIBUTION WIDTH 16.7 % (11.5-14.0); SEGMENTED NEUTROPHILS % (AUTO) 55.1 % (42-78); TOTAL CELLS COUNTED % (AUTO) 100 %
--- NOTE | 2018-12-10 19:07 | ER Document Report ---
ED General - General Chief Complaint: Eye Problem Stated Complaint: VISION CHANGE Time Seen by Provider: 12/10/18 15:06 Primary Care Provider: RACHEAL CARLSON MD [Primary Care Provider] - Follow up tomorrow Mode of Arrival: Wheelchair Notes: Patient is a 63-year-old female with a past medical history of lung cancer, essential hypertension, Sjogren's disease who presents with concerns of a floater in her right eye that started yesterday. States that initially started as just flashing of light in the right eye but became a moving, black floater today. Denies any pain to the eye. States that symptoms started abruptly, have been constant since that time. States that this feels similar to when she had a retinal detachment approximately 10 years ago after a traumatic injury to the e ye. She did not have surgical correction, states that it was managed conservatively with eyedrops. She has not seen her cooking chef regarding today's concerns. Denies headache, weakness, numbness or confusion. No fever. She also complains that there is a divot in her skull that she just noticed today and is uncertain whether or not this has been there prior to today. TRAVEL OUTSIDE OF THE [place] IN LAST 30 DAYS: No - Related Data Allergies/Adverse Reactions: sulfamethoxazole [From Bactrim] Allergy (Verified 12/10/18 14:07) trimethoprim [From Bactrim] Allergy (Verified 12/10/18 14:07) aspirin [Aspirin] Adverse Reaction (Verified 12/10/18 14:07) Past Medical History - General Information source: Patient - Social History Smoking Status: Never Smoker Chew tobacco use (# tins/day): No Frequency of alcohol use: None Drug Abuse: None Lives with: Family Family History: CAD, Hypertension Patient has suicidal ideation: No Patient has homicidal ideation: No - Past Medical History Cardiac Medical History: Reports: Hx Congestive Heart Failure, Hx Coronary Artery Disease, Hx Heart Attack - [place] 2013, Hx Hypercholesterolemia, Hx Hypertension Pulmonary Medical History: Denies: Hx Asthma, Hx Bronchitis, Hx COPD, Hx Pneumonia, Hx Tuberculosis Neurological Medical History: Denies: Hx Cerebrovascular Accident, Hx Seizures Renal/ Medical History: Reports: Hx End Stage Renal Disease, Hx Renal Insufficiency - Status post left nephrectomy for renal cell CA. Denies: Hx Peritoneal Dialysis Malignancy Medical History: Reports: Hx Pancreatic Cancer - Mass to the pancreatic tail 07/2015., Hx Renal (Kidney) Cancer GI Medical History: Reports: Hx Gastritis, Hx Gastroesophageal Reflux Disease Musculoskeletal Medical History: Reports Hx Arthritis - Right hip DJD Past Surgical History: Reports: Hx Abdominal Surgery - HERNIA, PERFORATED BOWEL, Hx Cholecystectomy, Hx Herniorrhaphy - Umbilical hernia repair complicated by b owel perforation, Hx Kidney (Renal Surgery). Denies: Hx Hysterectomy - Immunizations Hx Diphtheria, Pertussis, Tetanus Vaccination: No Hx Pneumococcal Vaccination: 08/03/10 Review of Systems - Review of Systems Notes: Constitutional: Negative for fever. HENT: Negative for sore throat. Eyes: Positive for floater in the right eye Cardiovascular: Negative for chest pain. Respiratory: Negative for shortness of breath. Gastrointestinal: Negative for abdominal pain, vomiting or diarrhea. Genitourinary: Negative for dysuria. Musculoskeletal: Negative for back pain. Skin: Negative for rash. Neurological: Negative for headaches, weakness or numbness. 10 point ROS negative except as marked above and in HPI. Physical Exam - Vital signs Vitals: Temp Pulse Resp BP Pulse Ox 98.1 F 92 18 146/92 H 100 12/10/18 14:15 12/10/18 14:15 12/10/18 14:15 12/10/18 14:15 12/10/18 14:15 Interpretation: Hypertensive Notes: PHYSICAL EXAMINATION: GENERAL: Well-appearing, well-nourished and in no acute distress. HEAD: Atraumatic, normocephalic. There is an approximately 0.25 cm divot in her central mid scalp. There is no swelling no pain no induration, no erythema to the area. EYES: Pupils equal round and reactive to light, extraocular movements intact, sclera anicteric, conjunctiva are normal. Visual acuity per tech documentation is normal. ENT: nares patent, oropharynx clear without exudates. Moist mucous membranes. NECK: Normal range of motion, supple without lymphadenopathy LUNGS: Breath sounds clear to auscultation bilaterally and equal. No wheezes rales or rhonchi. HEART: Regular rate and rhythm without murmurs ABDOMEN: Soft, nontender, normoactive bowel sounds. No guarding, no rebound. No masses appreciated. EXTREMITIES: Normal range of motion, no pitting or edema. No cyanosis. NEUROLOGICAL: Face symmetric. Tongue protrudes midline. Extraocular motions intact. Pupils are 2 mm and equally reactive. Normal speech, normal gait. 5 out of 5 strength in both the distal and proximal upper and lower extremities bilaterally. Sensation is grossly intact throughout. Finger to nose testing normal. Pronator drift normal. PSYCH: Normal mood, normal affect. SKIN: Warm, Dry, normal turgor, no rashes or lesions noted. - HEENT Visual acuity- Right eye: 20/50-2 Visual acuity- Left eye: 20/40-1 Visual acuity- Both eyes: 20/40-0 Corrective lenses worn: No Course - Re-evaluation Re-evalutation: 12/10/18 19:04 Patient presents with a floater that she started noticing within the last 48 hours in her right eye. Extraocular motions are intact, pupillary response normal, no conjunctival injection. Patient has no increased pain or discomfort to the eye. No periorbital swelling or edema. She has a history of retinal detachment as I approximate 10 years ago and her symptoms are very consistent with either vitreous or retinal detachment. I have advised the patient that she needs to see ophthalmology within 24 to 40 hours maximally and she has stated that she has an cooking chef whom she can contact and get rapid follow-up with. Patient also complains of a small divot in her skull that she first noticed today. On exam there is a notable approximately 0.25 cm divot in her central mid scalp. There is no swelling no pain no induration, no erythema to the area. This appears chronic and as if the patient may have just noticed this today and the patient likely just noticed this today. Alternatively the concern would be a possible lytic lesion as the patient has a history of lung cancer with a partial lobectomy [address] scan of the head does not demonstrate any evidence of a skull fracture or lytic lesion. I have advised patient to follow-up with her oncologist regarding this finding to ensure that they are not concerned with the possibility of metastatic lesion to the area. At this time will discharge with return precautions and follow-up recommendations. Verbal discharge instructions given a the bedside and opportunity for questions given. Medication warnings reviewed. Patient is in agreement with this plan and has verbalized understanding of return precautions and the need for primary care follow-up in the next 24-72 hours. - Vital Signs Vital signs: Temp Pulse Resp BP Pulse Ox 98.1 F 78 18 138/78 H 98 12/10/18 14:15 12/10/18 19:12 12/10/18 19:12 12/10/18 19:12 12/10/18 19:12 - Laboratory Result Diagrams: 12/10/18 18:05 12/10/18 16:21 Laboratory results interpreted by me: 12/10/18 12/10/18 16:21 18:05 Hgb 11.5 L MCH 25.5 L MCHC 31.6 L RDW 16.7 H Chloride 112 H Carbon Dioxide 21 L BUN 25 H Creatinine 1.80 H Est GFR ( Amer) 35 L Est GFR (Non-Af Amer) 29 L - Diagnostic Test Radiology reviewed: Image reviewed, Reports reviewed Radiology results interpreted by me: 12/10/18 19:06 CT head: No acute intercranial bleed or mass Discharge - Discharge Clinical Impression: History of lung cancer Floaters in visual field Qualifiers: Laterality: right Qualified Code(s): H43.391 - Other vitreous opacities, right eye Condition: Good Disposition: HOME, SELF-CARE Additional Instructions: Your symptoms are worrisome for a retinal detachment on the right. You need to see her cooking chef within 24 to 48 hours maximally. It is critical that you follow-up with ophthalmology. In regards to the divot on your skull, this is likely not new. Your CT scan is normal and does not demonstrate any evidence of a fracture or lytic lesion. However please do mention this to your doctor whom you are following with for your lung cancer to ensure that they are not concerned with the possibility of a lytic lesion causing this divot in the skull. Referrals: RACHEAL CARLSON MD [Primary Care Provider] - Follow up tomorrow
[2018-12-10 19:12] VITALS: BP 138/78
== END 2018-12-10 19:12 | disposition home or self-care (01) ==
LOC: ER 14:01
DX: H53.9 Unspecified visual disturbance (principal); H43.391 Other vitreous opacities, right eye; R51 Headache; R11.0 Nausea; I50.9 Heart failure, unspecified; I25.10 Atherosclerotic heart disease of native coronary artery without angina pectoris; E78.00 Pure hypercholesterolemia, unspecified; I13.2 Hypertensive heart and chronic kidney disease with heart failure and with stage 5 chronic kidney disease, or end stage renal disease; N18.6 End stage renal disease; Z85.118 Personal history of other malignant neoplasm of bronchus and lung; Z90.49 Acquired absence of other specified parts of digestive tract; Z88.3 Allergy status to other anti-infective agents; Z88.6 Allergy status to analgesic agent; I25.2 Old myocardial infarction
CPT/HCPCS: 36415; 70450; 80048; 85025; 99284

== ENCOUNTER 2019-01-23 16:50 | Emergency (ER) | payer MEDICARE, MEDICAID ==
--- NOTE | 2019-01-23 17:29 | ER Document Report ---
ED Medical Screen (RME) - General Chief Complaint: Wound Recheck Stated Complaint: PORT CHECK Time Seen by Provider: 01/23/19 17:16 Primary Care Provider: RACHEAL CARLSON MD [Primary Care Provider] - Follow up as needed TRAVEL OUTSIDE OF THE [place] IN LAST 30 DAYS: No - HPI Notes: 01/23/19 17:26 Patient is a 63-year-old female with lung cancer who presents complaining of port complications/pain status post placement 4 days ago to her right upper extremity by [facility], Dr. Mata. Patient states that she has had increased redness and warmth to the area and increased pain. Patient is not sure if this is normal or not and was told to come here for evaluation. She is otherwise able to eat and drink without difficulty. No other concerns or complaints. Denies any headache, fever, neck pain, URI, sore throat, chest pain, palpitations, syncope, cough, new onset shortness of breath, wheeze, dyspnea, abdominal pain, nausea/vomiting/diarrhea, urinary retention, dysuria, hematuria, loss of control of bowel or bladder, numbness/tingling, muscle paralysis/weakness, or rash. I have treated and performed a rapid initial assessment of this patient. A comprehensive ED assessment and evaluation of the patient, analysis of test results and completion of medical decision making process will be conducted by additional ED providers. PHYSICAL EXAMINATION: GENERAL: Well-appearing, well-nourished and in no acute distress. A&Ox4. Answers questions appropriately. LUNGS: Breath sounds clear to auscultation bilaterally and equal. No wheezes rales or rhonchi. Diminished right (lobectomy) HEART: Regular rate and rhythm without murmurs, rubs, gallops. Rt UE: + port palpated. + ecchymosis noted surrounding with erythema and tenderness with mild induration proximal to port. No fluctuance. Pulse 2+ distal. Cap refill <3 seconds. No bony tenderness. Extremities: No cyanosis, clubbing, or edema b/l. NEUROLOGICAL: Normal speech, normal gait. PSYCH: Normal mood, normal affect. - Related Data Allergies/Adverse Reactions: sulfamethoxazole [From Bactrim] Allergy (Verified 01/23/19 17:01) trimethoprim [From Bactrim] Allergy (Verified 01/23/19 17:01) aspirin [Aspirin] Adverse Reaction (Verified 01/23/19 17:01) Past Medical History - Social History Chew tobacco use (# tins/day): No Frequency of alcohol use: None Drug Abuse: None Family history: Reviewed & Not Pertinent - Past Medical History Cardiac Medical History: Reports: Hx Congestive Heart Failure, Hx Coronary Artery Disease, Hx Heart Attack - ID 2013, Hx Hypercholesterolemia, Hx Hypertension Pulmonary Medical History: Denies: Hx Asthma, Hx Bronchitis, Hx COPD, Hx Pneumonia, Hx Tuberculosis Neurological Medical History: Denies: Hx Cerebrovascular Accident, Hx Seizures Renal/ Medical History: Reports: Hx End Stage Renal Disease - kidney cancer, Hx Renal Insufficiency - Status post left nephrectomy for renal cell CA. Denies: Hx Peritoneal Dialysis Malignancy Medical History: Reports: Hx Pancreatic Cancer - Mass to the pancreatic tail 07/2015., Hx Renal (Kidney) Cancer GI Medical History: Reports: Hx Gastritis, Hx Gastroesophageal Reflux Disease Musculoskeltal Medical History: Reports Hx Arthritis - Right hip DJD Past Surgical History: Reports: Hx Abdominal Surgery - HERNIA, PERFORATED BOWEL, Hx Cholecystectomy, Hx Herniorrhaphy - Umbilical hernia repair complicated by bowel perforation, Hx Kidney (Renal Surgery) - left kidney removed. Denies: Hx Hysterectomy - Immunizations Hx Diphtheria, Pertussis, Tetanus Vaccination: No Physical Exam - Vital signs Vitals: Temp Pulse Resp BP Pulse Ox 99.4 F 94 20 161/87 H 98 01/23/19 17:06 01/23/19 17:06 01/23/19 17:06 01/23/19 17:06 01/23/19 17:06 Course - Vital Signs Vital signs: Temp Pulse Resp BP Pulse Ox 99.4 F 94 20 161/87 H 98 01/23/19 17:06 01/23/19 17:06 01/23/19 17:06 01/23/19 17:06 01/23/19 17:06 Doctor's Discharge - Discharge Referrals: RACHEAL CARLSON MD [Primary Care Provider] - Follow up as needed
--- NOTE | 2019-01-23 17:54 | ER Document Report ---
HPI - HPI Time Seen by Provider: 01/23/19 17:16 Pain Level: 5 Notes: Patient is a 63-year-old female with lung cancer who presents complaining of port complications/pain status post placement 4 days ago to her right upper extremity by [facility], Dr. Mata. Patient states that she has had increased redness and warmth to the area and increased pain. Patient is not sure if this is normal or not and was told to come here for evaluation. She is otherwise able to eat and drink without difficulty. No other concerns or complaints. Denies any headache, fever, neck pain, URI, sore throat, chest pain, palpitations, syncope, cough, new onset shortness of breath, wheeze, dyspnea, abdominal pain, nausea/vomiting/diarrhea, urinary retention, dysuria, hematuria, loss of control of bowel or bladder, numbness/tingling, muscle paralysis/weakness, or rash. - ROS Systems Reviewed and Negative: Yes All other systems reviewed and negative - REPRODUCTIVE Reproductive: DENIES: : - DERM Skin Color: Normal Past Medical History - Social History Smoking Status: Unknown if Ever Smoked Chew tobacco use (# tins/day): No Frequency of alcohol use: None Drug Abuse: None Family History: CAD, Hypertension Patient has suicidal ideation: No Patient has homicidal ideation: No - Past Medical History Cardiac Medical History: Reports: Hx Congestive Heart Failure, Hx Coronary Artery Disease, Hx Heart Attack - [place] 2013, Hx Hypercholesterolemia, Hx Hypertension Pulmonary Medical History: Denies: Hx Asthma, Hx Bronchitis, Hx COPD, Hx Pneumonia, Hx Tuberculosis Neurological Medical History: Denies: Hx Cerebrovascular Accident, Hx Seizures Renal/ Medical History: Reports: Hx End Stage Renal Disease - kidney cancer, Hx Renal Insufficiency - Status post left nephrectomy for renal cell CA. Denies: Hx Peritoneal Dialysis Malignancy Medical History: Reports: Hx Pancreatic Cancer - Mass to the pancreatic tail 07/2015., Hx Renal (Kidney) Cancer GI Medical History: Reports: Hx Gastritis, Hx Gastroesophageal Reflux Disease Musculoskeletal Medical History: Reports Hx Arthritis - Right hip DJD Past Surgical History: Reports: Hx Abdominal Surgery - HERNIA, PERFORATED BOWEL, Hx Cholecystectomy, Hx Herniorrhaphy - Umbilical hernia repair complicated by bowel perforation, Hx Kidney (Renal Surgery) - left kidney removed. Denies: Hx Hysterectomy - Immunizations Hx Diphtheria, Pertussis, Tetanus Vaccination: No Hx Pneumococcal Vaccination: 08/03/10 Vertical Provider Document - CONSTITUTIONAL Agree With Documented VS: Yes Notes: PHYSICAL EXAMINATION: GENERAL: Well-appearing, well-nourished and in no acute distress. A&Ox4. Answers questions appropriately. LUNGS: Breath sounds clear to auscultation bilaterally and equal. No wheezes rales or rhonchi. Diminished right (lobectomy) HEART: Regular rate and rhythm without murmurs, rubs, gallops. Rt UE: + port palpated. + ecchymosis noted surrounding with erythema and tenderness with mild induration proximal to port. No fluctuance. Pulse 2+ distal. Cap refill <3 seconds. No bony tenderness. Extremities: No cyanosis, clubbing, or edema b/l. NEUROLOGICAL: Normal speech, normal gait. PSYCH: Normal mood, normal affect. - INFECTION CONTROL TRAVEL OUTSIDE OF THE [place] IN LAST 30 DAYS: No Course - Re-evaluation Re-evalutation: 01/23/19 17:[address] Jay from [facility] who is on-call for Dr. Mata. He would like to 'forgo' any labs/imaging at this time. He would like her on Doxy for 5 days and to call their office tomorrow to set up an appointment for recheck this week as soon as they area available. Patient is an afebrile, well-hydrated, 63-year-old female who presents with possible mild cellulitis to the right upper extremity port. Vitals are acceptable without significant tachycardia, tachypnea, or hypoxia. PE is otherwise unremarkable for any neurovascular compromise, obvious tendon/leg rupture, obvious fracture/dislocation, abscess, septic joint. No suspicion for any other sepsis or other life-threatening illness at this time. Patient monitor for any acute changes and seek medical attention if so. Patient is nontoxic-appearing and is tolerating p.o. without difficulty. No further work- up warranted at this time. Has reviewed with the surgeon we will send her home on doxycycline and she is to call their office tomorrow to set up an appointment for follow-up. Return to the ED with any other worsening/concerning symptoms. Patient is in agreement. - Vital Signs Vital signs: Temp Pulse Resp BP Pulse Ox 99.4 F 94 20 161/87 H 98 01/23/19 17:06 01/23/19 17:06 01/23/19 17:06 01/23/19 17:06 01/23/19 17:06 Discharge - Discharge Clinical Impression: Vascular port complication Qualifiers: Encounter type: initial encounter Qualified Code(s): T82.9XXA - Unspecified complication of cardiac and vascular prosthetic device, implant and graft, initial encounter Condition: Stable Disposition: HOME, SELF-CARE Additional Instructions: Keep the skin clean Wash with soap and water Tylenol/ibuprofen if needed Take medication as directed Monitor for any worsening symptoms Recheck with your surgeon's office in the next couple days. Call them first thing tomorrow morning to set up an appointment per Dr. Jay. Return to the ED with any worsening symptoms and/or development of fever, headache, chest pain, palpitations, syncope, shortness of breath, trouble breathing, abdominal pain, n/v/d, abscess, purulent discharge, red streaks, worsening swelling, or other worsening symptoms that are concerning to you. Prescriptions: Doxycycline Hyclate 100 mg PO BID #10 capsule Forms: Elevated Blood Pressure Referrals: SURGERY [Provider Group] - Follow up tomorrow
[2019-01-23 18:13] VITALS: BP 178/96
== END 2019-01-23 18:11 | disposition home or self-care (01) ==
LOC: ER 16:50
DX: T82.9XXA Unspecified complication of cardiac and vascular prosthetic device, implant and graft, initial encounter (principal); M79.601 Pain in right arm; I11.0 Hypertensive heart disease with heart failure; I50.9 Heart failure, unspecified; I25.10 Atherosclerotic heart disease of native coronary artery without angina pectoris; I25.2 Old myocardial infarction
CPT/HCPCS: 99283

== ENCOUNTER 2019-03-13 15:49 | Emergency (ER) | payer MEDICARE, MEDICAID ==
[2019-03-13] MEDS ORDERED: NORMAL SALINE 1000 ML 1,000 ML IV ONE (16:28)
[2019-03-13] MEDS ORDERED: ONDANSETRON HCL INJ/PF 4 MG/2 ML SDV IV ONE (16:29)
[2019-03-13] MEDS ORDERED: MORPHINE SULFATE 10 MG/ML INJ IV ONE (16:29)
--- NOTE | 2019-03-13 16:34 | ER Document Report ---
ED Medical Screen (RME) - General Chief Complaint: Abdominal Pain Stated Complaint: ABDOMINAL PAIN Time Seen by Provider: 03/13/19 16:22 Primary Care Provider: LISSETTE CROCKETT NP [Primary Care Provider] - Follow up as needed Notes: Patient is a 63-year-old female with a past medical history of stage III chronic kidney disease, lung cancer, hypertension, and pancreatitis who presents emergency department with a chief complaint of abdominal pain. She states that her pain is in her mid upper abdomen. She admits to having a fever. Her last dose of chemo was on 16 February. She has not received her chemo because her platelet count was low. Her abdominal pain started few days ago. Exam: Tender mid upper abdomen. I have greeted and performed a rapid initial assessment of this patient. A comprehensive ED assessment and evaluation of the patient, analysis of test results and completion of medical decision making process will be conducted by an additional ED providers. TRAVEL OUTSIDE OF THE [place] IN LAST 30 DAYS: No - Related Data Allergies/Adverse Reactions: sulfamethoxazole [From Bactrim] Allergy (Verified 02/28/19 12:59) trimethoprim [From Bactrim] Allergy (Verified 02/28/19 12:59) aspirin [Aspirin] Adverse Reaction (Verified 02/28/19 12:59) Past Medical History - Social History Chew tobacco use (# tins/day): No Frequency of alcohol use: None Drug Abuse: None Family history: Reviewed & Not Pertinent - Past Medical History Cardiac Medical History: Reports: Hx Congestive Heart Failure, Hx Coronary Artery Disease, Hx Heart Attack - 2013, Hx Hypercholesterolemia, Hx Hypertension Pulmonary Medical History: Reports: Hx Bronchitis Denies: Hx Asthma, Hx COPD, Hx Pneumonia, Hx Tuberculosis Neurological Medical History: Reports: Hx Cerebrovascular Accident - stroke 03/2014 while unresponsive following abd surgical complication. Denies: Hx Seizures Renal/ Medical History: Reports: Hx End Stage Renal Disease - kidney cancer, Hx Renal Insufficiency. Denies: Hx Peritoneal Dialysis Malignancy Medical History: Reports: Hx Lung Cancer - Right upper partial lobectomy 11/09/2018., Hx Pancreatic Cancer - Mass to tail pancreas, July 2015. Did not light up on PET scan., Hx Renal (Kidney) Cancer - Cell carcinoma with left nephrectomy 2007. GI Medical History: Reports: Hx Gastritis, Hx Gastroesophageal Reflux Disease Musculoskeltal Medical History: Reports Hx Arthritis - Right hip DJD., Reports Hx Gout - Tentative diagnosis of gout. Psychiatric Medical History: Denies: Hx Depression Past Surgical History: Reports: Hx Abdominal Surgery - HERNIA, PERFORATED BOWEL, Hx Cholecystectomy, Hx Herniorrhaphy - Umbilical hernia repair complicated by bowel perforation, Hx Kidney (Renal Surgery) - Left nephrectomy for renal cell carcinoma, Hx Vascular Surgery - Port placed in right upper arm 01/19/2019. Retinal detachment treated in 20, Other - EGD to evaluate pancreatic mass. Right upper partial lobectomy 11/09/2018.. Denies: Hx Hysterectomy - Immunizations Hx Diphtheria, Pertussis, Tetanus Vaccination: No Physical Exam - Vital signs Vitals: Temp Pulse Resp BP Pulse Ox 98.3 F 90 24 H 148/91 H 99 03/13/19 15:56 03/13/19 15:56 03/13/19 15:56 03/13/19 15:56 03/13/19 15:56 Course - Vital Signs Vital signs: Temp Pulse Resp BP Pulse Ox 98.3 F 90 24 H 148/91 H 99 03/13/19 15:56 03/13/19 15:56 03/13/19 15:56 03/13/19 15:56 03/13/19 15:56 Doctor's Discharge - Discharge Referrals: LISSETTE CROCKETT NP [Primary Care Provider] - Follow up as needed
[2019-03-13 17:26] LABS: VENOUS BLOOD BASE EXCESS -4.4 mmol/L; VENOUS BLOOD HCO3 21.7 mmol/L (20-32); VENOUS BLOOD PCO2 43.7 mmHg (35-63); VENOUS BLOOD PH 7.31 (7.30-7.42)
[2019-03-13 17:37] LABS: INTERNATIONAL RATION (INR) 1.19; PROTHROMBIN TIME 15.2 SEC (11.4-15.4)
[2019-03-13 17:48] LABS: ALKALINE PHOSPHATASE 122 U/L (38-126); ANION GAP 11 (5-19); ASPARTATE AMINO TRANSFERASE 38 U/L (14-36); BILIRUBIN,DIRECT 0.6 mg/dL (0.0-0.4); BILIRUBIN,TOTAL 0.7 mg/dL (0.2-1.3); BLOOD UREA NITROGEN 19 mg/dL (7-20); CALCIUM 9.2 mg/dL (8.4-10.2); CARBON DIOXIDE 20 mmol/L (22-30); CHLORIDE 111 mmol/L (98-107); CREATINE KINASE 67 U/L (30-135); GLUCOSE 118 mg/dL (75-110); POTASSIUM 4.8 mmol/L (3.6-5.0); TOTAL PROTEIN 7.8 g/dL (6.3-8.2)
--- NOTE | 2019-03-13 17:57 | EKG REPORT ---
SEVERITY:- BORDERLINE ECG - SINUS RHYTHM BORDERLINE LEFT AXIS DEVIATION CONSIDER ANTERIOR INFARCT VS POOR LEAD PLACEMENT. : Confirmed by: Pascual Rosenthal MD 13-Mar-2019 17:56:19
[2019-03-13 18:00] LABS: CREATINE KINASE MB 0.46 ng/mL (<4.55)
[2019-03-13 18:01] LABS: TROPONIN I < 0.012 ng/mL
--- NOTE | 2019-03-13 18:06 | RADIOLOGY REPORT (SQ) ---
EXAM DESCRIPTION: CHEST SINGLE VIEW COMPLETED DATE/TIME: 03/13/2019 5:55 pm REASON FOR STUDY: fever COMPARISON: 11/22/2018. EXAM PARAMETERS: NUMBER OF VIEWS: One view. TECHNIQUE: Single frontal radiographic view of the chest acquired. RADIATION DOSE: NA LIMITATIONS: None. FINDINGS: LUNGS AND PLEURA: Elevation/eventration of the right hemidiaphragm, unchanged from prior s tudy. No opacities, masses or pneumothorax. No pleural effusion. MEDIASTINUM AND HILAR STRUCTURES: No masses. Contour normal. HEART AND VASCULAR STRUCTURES: Heart upper limits of normal in size. Normal vasculature. BONES: No acute findings. HARDWARE: PICC line. OTHER: No other significant finding. IMPRESSION: NO ACUTE RADIOGRAPHIC FINDING IN THE CHEST. TECHNICAL DOCUMENTATION: JOB ID: [id number] [employer]- All Rights Reserved Reading location - IP/workstation name: [email or web address]
[2019-03-13] MEDS ORDERED: ONDANSETRON HCL INJ/PF 4 MG/2 ML SDV ONE (18:28)
--- NOTE | 2019-03-13 19:05 | ER Document Report ---
ED General - General TRAVEL OUTSIDE OF THE [place] IN LAST 30 DAYS: No <KESHA POTTER - Last Filed: 03/13/19 22:11> <YINA ORELLANA - Last Filed: 03/13/19 23:35> - General Chief Complaint: Abdominal Pain Stated Complaint: ABDOMINAL PAIN Time Seen by Provider: 03/13/19 16:22 Primary Care Provider: LISSETTE CROCKETT NP [Primary Care Provider] - Follow up as needed Notes: 63-year-old female with lung cancer presents the emergency department complaining of epigastric abdominal pain. Patient states that she has not felt perfect since Thursday, on Thursday her temperature was elevated for her at 99.9, on Thursday became a true fever at 101.1 and on she developed epigastric abdominal pain associated with steadily increasing vomiting of clear phone but no blood. Patient states it feels somewhat similar to past pancreatitis but not identical. Patient denies any diarrhea, infectious states she has not had a bowel movement for the past 4 days and cannot remember the last time she had any flatus. Patient did have a resection of her right upper lobe on 11/2018 for lung cancer and her chemotherapy has been pause since February 16, 2019 due to abnormal CBC. Follows with Dr. Crooks. (KESHA POTTER) - Related Data Allergies/Adverse Reactions: sulfamethoxazole [From Bactrim] Allergy (Verified 02/28/19 12:59) trimethoprim [From Bactrim] Allergy (Verified 02/28/19 12:59) aspirin [Aspirin] Adverse Reaction (Verified 02/28/19 12:59) Past Medical History - General Information source: Patient - Social History Smoking Status: Former Smoker Chew tobacco use (# tins/day): No Frequency of alcohol use: None Drug Abuse: None Family History: CAD, Hypertension Patient has suicidal ideation: No Patient has homicidal ideation: No - Past Medical History Cardiac Medical History: Reports: Hx Congestive Heart Failure, Hx Coronary Artery Disease, Hx Heart Attack - 2013, Hx Hypercholesterolemia, Hx Hypertension Pulmonary Medical History: Reports: Hx Bronchitis Denies: Hx Asthma, Hx COPD, Hx Pneumonia, Hx Tuberculosis Neurological Medical History: Reports: Hx Cerebrovascular Accident - stroke 03/2014 while unresponsive following abd surgical complication. Denies: Hx Seizures Renal/ Medical History: Reports: Hx End Stage Renal Disease - kidney cancer, Hx Renal Insufficiency. Denies: Hx Peritoneal Dialysis Malignancy Medical History: Reports: Hx Lung Cancer - Right upper partial lobectomy 11/09/2018., Hx Pancreatic Cancer - Mass to tail pancreas, July 2015. Did not light up on PET scan., Hx Renal (Kidney) Cancer - Cell carcinoma with left nephrectomy 2007. GI Medical History: Reports: Hx Gastritis, Hx Gastroesophageal Reflux Disease Musculoskeletal Medical History: Reports Hx Arthritis - Right hip DJD., Reports Hx Gout - Tentative diagnosis of gout. Psychiatric Medical History: Denies: Hx Depression Past Surgical History: Reports: Hx Abdominal Surgery - HERNIA, PERFORATED BOWEL, Hx Cholecystectomy, Hx Herniorrhaphy - Umbilical hernia repair complicated by bowel perforation, Hx Kidney (Renal Surgery) - Left nephrectomy for renal cell carcinoma, Hx Vascular Surgery - Port placed in right upper arm 01/19/2019. Retinal detachment treated in , Other - EGD to evaluate pancreatic mass. Right upper partial lobectomy 11/09/2018.. Denies: Hx Hysterectomy - Immunizations Hx Diphtheria, Pertussis, Tetanus Vaccination: No Hx Pneumococcal Vaccination: 08/03/10 <KESHA POTTER - Last Filed: 03/13/19 22:11> Review of Systems - Review of Systems Constitutional: See HPI EENT: No symptoms reported Cardiovascular: No symptoms reported Respiratory: No symptoms reported Gastrointestinal: See HPI -: Yes All other systems reviewed and negative <KESHA POTTER - Last Filed: 03/13/19 22:11> Physical Exam <KESHA POTTER - Last Filed: 03/13/19 22:11> - Vital signs Vitals: Temp Pulse Resp BP Pulse Ox 98.3 F 90 24 H 148/91 H 99 03/13/19 15:56 03/13/19 15:56 03/13/19 15:56 03/13/19 15:56 03/13/19 15:56 - Notes Notes: GENERAL: Awake, appears uncomfortable, vomiting clear foam in front of me. HEAD: Normocephalic, atraumatic EYES: Pupils equal, round and reactive to light, extraocular movements intact. ENT: Oral mucosa moist, tongue midline. NECK: Full range of motion, supple, trachea midline. LUNGS: Clear to auscultation bilaterally, no wheezes, rales or rhonchi, no respiratory distress. HEART: Regular rate and rhythm, no murmurs, gallops, rubs. ABDOMEN: Soft, epigastric tenderness palpation, mildly distended, normal bowel sounds present in all 4 quadrants. EXTREMITIES: Moves all 4 extremities spontaneously, no edema, radial and dorsalis pedis pulses 2/4 bilaterally. No cyanosis. NEUROLOGICAL: Alert and oriented x3, normal speech. PSYCH: Normal mood, normal affect. SKIN: Warm, Dry, normal turgor, no rashes or lesions noted. (KESHA POTTER) Course - Laboratory Result Diagrams: 03/13/19 20:45 03/13/19 17:02 <KESHA POTTER - Last Filed: 03/13/19 22:11> - Laboratory Result Diagrams: 03/13/19 20:45 03/13/19 17:02 <YINA ORELLANA - Last Filed: 03/13/19 23:35> - Re-evaluation Re-evalutation: 03/13/19 21:45 CBC clotted and has had to be redrawn, INR slightly prolonged at 1.19, venous blood gas unremarkable, chemistry shows mild dehydration with a CO2 of 28, creatinine is approximately at its baseline at 1.7, glucose normal at 118, lactic acid normal, troponin negative, lipase normal, chest x-ray does not show any acute process. EKG is not ischemic. As the patient is having increasing abdominal pain, increasing vomiting and has not had a bowel movement in 4 days and has been unable to recall when her last episode of flatus was patient will be sent for CT scan of the abdomen pelvis with IV and oral contrast. Patient is continuing to have nausea so in addition to the Zofran that we initially used I then gave her an injection of Phenergan IM, after that she says she has thrown up her contrast so patient is now receiving Reglan 5 mg IV as well as 25 mg of Benadryl IV. 03/13/19 22:11 CBC shows anemia without leukocytosis, platelets normal. Patient is in CAT scan now. Patient's case has been signed out to Dr. Yina Orellana. Patient is aware of this. He will follow-up on the CAT scan and final disposition of this patient. (KESHA POTTER) - Vital Signs Vital signs: Temp Pulse Resp BP Pulse Ox 98.2 F 70 16 158/87 H 93 03/13/19 19:00 03/13/19 19:00 03/13/19 21:01 03/13/19 21:01 03/13/19 21:01 - Laboratory Laboratory results interpreted by me: 03/13/19 03/13/19 17:02 20:45 RBC 3.66 L Hgb 9.6 L Hct 29.9 L MCH 26.2 L RDW 18.7 H Chloride 111 H Carbon Dioxide 20 L Creatinine 1.70 H Est GFR ( Amer) 37 L Est GFR (Non-Af Amer) 31 L Glucose 118 H Direct Bilirubin 0.6 H AST 38 H - EKG Interpretation by Me Additional EKG results interpreted by me: 03/13/19 21:46 EKG shows sinus rhythm at a rate of 73, left axis deviation, normal intervals, no ST segment elevations or depressions, per my interpretation. (KESHA POTTER) - Transfer of Care Notes: 03/13/19 23:30 CT imaging is reviewed, no acute abnormalities noted in the abdomen. Repeat examination shows benign abdomen. Patient's nausea has improved substantially. She has antiemetics at home, I am going to give her a prescription for Compazine suppositories, she will follow-up close with a primary care physician and oncology. (YINA ORELLANA) Discharge <KESHA POTTER - Last Filed: 03/13/19 22:11> <YINA ORELLANA - Last Filed: 03/13/19 23:35> - Discharge Clinical Impression: Epigastric pain Condition: Stable Disposition: HOME, SELF-CARE Instructions: Abdominal Pain ([facility]), Antinausea Medication ([facility]) Prescriptions: Omeprazole 20 mg PO DAILY #14 capsule.dr Rojaszirom Maleate [Compazine 25 Mg Supp.Rect] 25 mg NC Q6 PRN #12 supp.rect PRN Reason: Referrals: LISSETTE CROCKETT NP [Primary Care Provider] - 03/14/19
[2019-03-13] MEDS ORDERED: PROMETHAZINE HCL INJ 25 MG/1 ML VIAL IM ONE (20:32)
[2019-03-13 21:04] LABS: HEMATOCRIT 29.9 % (36.0-47.0); HEMOGLOBIN 9.6 g/dL (12.0-15.5); MEAN CORPUSCULAR HEMOGLOBIN 26.2 pg (27.0-33.4); MEAN CORPUSCULAR HGB CONC 32.1 g/dL (32.0-36.0); MEAN CORPUSCULAR VOLUME 82 fl (80-97); PLATELET COUNT 308 10^3/uL (150-450); RED BLOOD COUNT 3.66 10^6/uL (3.72-5.28); RED CELL DISTRIBUTION WIDTH 18.7 % (11.5-14.0); WHITE BLOOD COUNT 7.5 10^3/uL (4.0-10.5)
[2019-03-13] MEDS ORDERED: METOCLOPRAMIDE HCL INJ/PF 10 MG/2 ML SDV IV ONE (21:44)
[2019-03-13] MEDS ORDERED: DIPHENHYDRAMINE HCL 50 MG/ML VIAL IV ONE (21:44)
[2019-03-13 22:14] LABS: ABSOLUTE LYMPHOCYTES# (MANUAL) 1.6 10^3/uL (0.5-4.7); ABSOLUTE MONOCYTES # (MANUAL) 0.6 10^3/uL (0.1-1.4); BASOPHILS % (MANUAL) 0 % (0-2); EOSINOPHILS % (MANUAL) 0 % (0-6); LYMPHOCYTES % (MANUAL) 18 % (13-45); MONOCYTES % (MANUAL) 8 % (3-13); NUCLEATED RED BLOOD CELLS 2 /100 WBC (0); SEGMENTED NEUTROPHILS % (MAN) 71 % (42-78); TOTAL CELLS COUNTED 100
[2019-03-13 22:16] LABS: ANISOCYTOSIS 2+; OVALOCYTES 2+; PLATELET COMMENT ADEQUATE; POIKILOCYTOSIS 2+; POLYCHROMASIA 1+; SCHISTOCYTES 1+; TEAR DROP CELLS 1+; TOXIC GRANULATION 1+
--- NOTE | 2019-03-13 22:51 | RADIOLOGY REPORT (SQ) ---
EXAM DESCRIPTION: CT ABDOMEN PELVIS WITH IV CONTRAST COMPLETED DATE/TME: 03/13/2019 00:00 CLINICAL HISTORY: 63 years, Female, possible SBO, epigast abd pain, cancer COMPARISON: None. TECHNIQUE: 402 Images stored on PACS. All CT scanners at this facility use dose modulation, iterative reconstruction, and/or weight based dosing when appropriate to reduce radiation dose to as low as reasonably achievable (ALARA). [facility]: Dose Right [facility]: CareDose [facility]: Dose Right [facility]: Teradose 4D [facility]: Smart eSKY.pl LIMITATIONS: None. COMPARISON: 12/22/2016 CT FINDINGS: Limited evaluation of the lung bases demonstrates a moderate right pleural effusion. Osseous structures are grossly intact. The liver, spleen, adrenal glands are unremarkable. Extensive pancreatic calcifications. Status post cholecystectomy. Right renal cortical scar formation. Left kidney is not visualized presumably surgically absent. No abnormality in the left renal fossa. No evidence for bowel obstruction. No free air or free fluid. IMPRESSION: Moderate right pleural effusion. Nonvisualization of the left kidney, presumably surgically absent. Right renal cortical scar formation. TECHNICAL DOCUMENTATION: Quality ID # [id number]: Final reports with documentation of one or more dose reduction techniques (e.g., Automated exposure control, adjustment of the mA and/or kV according to patient size, use of iterative reconstruction technique) copyright 2011 [employer]- All Rights Reserved
[2019-03-13 23:52] VITALS: BP 164/83
== END 2019-03-14 00:06 | disposition home or self-care (01) ==
LOC: ER 15:49
DX: R10.13 Epigastric pain (principal); R11.2 Nausea with vomiting, unspecified; E86.0 Dehydration; R19.4 Change in bowel habit; R14.0 Abdominal distension (gaseous); I25.10 Atherosclerotic heart disease of native coronary artery without angina pectoris; I10 Essential (primary) hypertension; Z85.118 Personal history of other malignant neoplasm of bronchus and lung; Z92.21 Personal history of antineoplastic chemotherapy; Z85.528 Personal history of other malignant neoplasm of kidney; Z85.05 Personal history of malignant neoplasm of liver; Z90.5 Acquired absence of kidney; Z87.19 Personal history of other diseases of the digestive system; Z87.891 Personal history of nicotine dependence; Z90.2 Acquired absence of lung [part of]; Z88.1 Allergy status to other antibiotic agents; D64.9 Anemia, unspecified
CPT/HCPCS: 93005; 96376; 99284; 96361; 96374; 96375; 36415; 87040; 82553; 82962; 82550; 83690; 85025; 85610; 80053; 84484; 82803; 83605; 71045; 74177; 93010; J1200; J2765; J2270; J2550; J2405; J7030

== ENCOUNTER → 2019-03-17 | Outpatient (CLI) | payer MEDICARE, MEDICAID ==
[2019-03-17 16:39] LABS: HEMATOCRIT 32.9 % (36.0-47.0); HEMOGLOBIN 10.6 g/dL (12.0-15.5); MEAN CORPUSCULAR HEMOGLOBIN 25.6 pg (27.0-33.4); MEAN CORPUSCULAR VOLUME 80 fl (80-97); PLATELET COUNT 343 10^3/uL (150-450); RED BLOOD COUNT 4.12 10^6/uL (3.72-5.28); RED CELL DISTRIBUTION WIDTH 20.2 % (11.5-14.0); WHITE BLOOD COUNT 6.6 10^3/uL (4.0-10.5)
[2019-03-17 16:59] LABS: ANION GAP 13 (5-19); BLOOD UREA NITROGEN 19 mg/dL (7-20); CALCIUM 9.2 mg/dL (8.4-10.2); CARBON DIOXIDE 19 mmol/L (22-30); CHLORIDE 110 mmol/L (98-107); GLUCOSE 134 mg/dL (75-110); POTASSIUM 4.2 mmol/L (3.6-5.0)
[2019-03-17 17:07] LABS: URINE CREATININE 220.9 mg/dL (15-278)
[2019-03-17 17:09] LABS: ABSOLUTE LYMPHOCYTES# (MANUAL) 0.9 10^3/uL (0.5-4.7); ABSOLUTE MONOCYTES # (MANUAL) 0.9 10^3/uL (0.1-1.4); BASOPHILS % (MANUAL) 0 % (0-2); EOSINOPHILS % (MANUAL) 0 % (0-6); LYMPHOCYTES % (MANUAL) 13 % (13-45); MONOCYTES % (MANUAL) 14 % (3-13); NUCLEATED RED BLOOD CELLS 2 /100 WBC (0); PLATELET COMMENT ADEQUATE; SEGMENTED NEUTROPHILS % (MAN) 73 % (42-78); TOTAL CELLS COUNTED 100
[2019-03-17 17:10] LABS: HYPOCHROMASIA 1+; OVALOCYTES 1+; POIKILOCYTOSIS 1+
[2019-03-17 17:13] LABS: UR PRO/CREAT RATIO RESULT 1.4 mg/mg (0.0-0.2); URINE PROTEIN 300.8 mg/dL (<12)
== END ==
LOC: OD 15:24
PROVIDERS: ATTEND Internal Medicine Nephrology
DX: E11.22 Type 2 diabetes mellitus with diabetic chronic kidney disease (principal); I12.9 Hypertensive chronic kidney disease with stage 1 through stage 4 chronic kidney disease, or unspecified chronic kidney disease; N18.3 Chronic kidney disease, stage 3 (moderate); R80.9 Proteinuria, unspecified; E55.9 Vitamin D deficiency, unspecified
CPT/HCPCS: 36415; 80048; 82306; 82570; 83970; 84156; 85025

== ENCOUNTER 2019-03-21 08:07 | Day surgery (SDC) | payer MEDICARE, MEDICAID ==
[2019-03-21 09:15] LABS: INTERNATIONAL RATION (INR) 1.03; PARTIAL THROMBOPLASTIN TIME 32.2 SEC (23.5-35.8); PROTHROMBIN TIME 13.5 SEC (11.4-15.4)
[2019-03-21 09:22] LABS: BLOOD UREA NITROGEN 21 mg/dL (7-20)
[2019-03-21 09:23] LABS: HEMATOCRIT 32.2 % (36.0-47.0); HEMOGLOBIN 10.2 g/dL (12.0-15.5); MEAN CORPUSCULAR HEMOGLOBIN 25.8 pg (27.0-33.4); MEAN CORPUSCULAR HGB CONC 31.8 g/dL (32.0-36.0); MEAN CORPUSCULAR VOLUME 81 fl (80-97); PLATELET COUNT 275 10^3/uL (150-450); RED BLOOD COUNT 3.97 10^6/uL (3.72-5.28); RED CELL DISTRIBUTION WIDTH 21.4 % (11.5-14.0); WHITE BLOOD COUNT 6.4 10^3/uL (4.0-10.5)
[2019-03-21 13:17] LABS: FLUID TYPE PLEURAL
[2019-03-21 13:18] LABS: FLUID COLOR YELLOW; FLUID SOURCE LUNG
[2019-03-21 13:19] LABS: FLUID APPEARANCE HAZY; FLUID VISCOSITY LIQUID
--- NOTE | 2019-03-21 13:24 | RADIOLOGY REPORT (SQ) ---
EXAM DESCRIPTION: CHEST SINGLE VIEW COMPLETED DATE/TIME: 03/21/2019 11:36 am REASON FOR STUDY: S/P THORACENTESIS COMPARISON: 03/13/2019 EXAM PARAMETERS: NUMBER OF VIEWS: One view. TECHNIQUE: Single frontal radiographic view of the chest acquired. RADIATION DOSE: NA LIMITATIONS: None. FINDINGS: LUNGS AND PLEURA: There is no pneumothorax. There is scarring in the right base. MEDIASTINUM AND HILAR STRUCTURES: No masses. Contour normal. HEART AND VASCULAR STRUCTURES: Heart normal in size. Normal vasculature. BONES: No acute findings. HARDWARE: None in the chest. OTHER: No other significant finding. IMPRESSION: No pneumothorax. TECHNICAL DOCUMENTATION: JOB ID: [id number] [employer]- All Rights Reserved Reading location - IP/workstation name: [email or web address]
--- NOTE | 2019-03-21 13:45 | RADIOLOGY REPORT (SQ) ---
EXAM DESCRIPTION: CHEST SINGLE VIEW COMPLETED DATE/TIME: 03/21/2019 1:04 pm REASON FOR STUDY: S/P THORACENTESIS COMPARISON: 03/21/2019 EXAM PARAMETERS: NUMBER OF VIEWS: One view. TECHNIQUE: Single frontal radiographic view of the chest acquired. RADIATION DOSE: NA LIMITATIONS: None. FINDINGS: LUNGS AND PLEURA: No pneumothorax post right thoracentesis. Mild residual effusion. No n ew airspace disease. MEDIASTINUM AND HILAR STRUCTURES: No masses. Contour normal. HEART AND VASCULAR STRUCTURES: Normal heart size. Tortuous thoracic aorta. BONES: No acute findings. HARDWARE: None in the chest. OTHER: No other significant finding. IMPRESSION: No pneumothorax post right thoracentesis. Mild residual effusion. TECHNICAL DOCUMENTATION: JOB ID: [id number] [employer]- All Rights Reserved Reading location - IP/workstation name: [email or web address]
[2019-03-21 14:09] VITALS: BP 154/92
--- NOTE | 2019-03-21 16:26 | RADIOLOGY REPORT (SQ) ---
EXAM DESCRIPTION: U/S THORACENTESIS WITH IMAGING COMPLETED DATE/TIME: 03/21/2019 11:08 am REASON FOR STUDY: PLEURAL EFFUSION J90 PLEURAL EFFUSION, NOT ELSEWHERE CLASSIFIED C34.11 MALIGNANT NEOPLASM OF UPPER LOBE, RIGHT BRONCHUS OR L Z79.01 CORRECTION (CURRENT) USE OF ANTICOAGULANTS COMPARISON: None. LIMITATIONS: None. PROCEDURE: Procedure, risks, benefit, and alternative explained to patient who then gave written con sent. The posterior right chest wall was marked using ultrasound guidance. A time-out was called fo r correct marking verification. Chest prepped and draped using sterile technique. Local anesthesia a chieved using 3.0 ml of 1% lidocaine injection. A 6fr Safe-T- Centesis set was introduced into the r ight pleural space. Fluid was aspirated. The catheter was removed and the entry site was covered wi th sterile bandage. No immediate complications noted. Images acquired during the procedure were stored on PACS. FINDINGS: ENTRY SITE: posterior right chest. FLUID VOLUME: 300 cc FLUID ANALYSIS: Straw OTHER: Fluid sent to the lab for testing. IMPRESSION: SUCCESSFUL THORACENTESIS USING ULTRASOUND GUIDANCE. COMMENT: Patient medication list reviewed: Yes- Quality ID# [id number]:Eligible professional attests to doc umenting in the medical record they obtained, updated, or reviewed the patient's current medications. TECHNICAL DOCUMENTATION: JOB ID: [id number] [employer]- All Rights Reserved Reading location - IP/workstation name: [email or web address]
[2019-03-22 10:57] LABS: ALBUMIN BODY FLUID 2.4 g/dL (.); URIC ACID BODY FLUID 11.9 mg/dL (.)
== END 2019-03-21 14:05 | disposition home or self-care (01) ==
LOC: RAD 08:07
PROVIDERS: ATTEND Internal Medicine Medical Oncology
DX: J90 Pleural effusion, not elsewhere classified (principal); C34.11 Malignant neoplasm of upper lobe, right bronchus or lung; Z79.01 Long term (current) use of anticoagulants; Z85.53 Personal history of malignant neoplasm of renal pelvis; D63.0 Anemia in neoplastic disease
CPT/HCPCS: 36415; 87205; 87070; 84560; 84520; 82565; 85027; 85610; 85730; 89050; 87075; 82042; 82150; 82945; 83615; 84157; 88162; 88342 ×2; 88341 ×2; 88305 ×2; 71045; 32555; J1642

== ENCOUNTER → 2019-05-10 | Outpatient (CLI) | payer MEDICAID, MEDICARE ==
--- NOTE | 2019-05-10 10:33 | RADIOLOGY REPORT (SQ) ---
EXAM DESCRIPTION: CT CHEST WITH COMPLETED DATE/TIME: 05/10/2019 8:57 am REASON FOR STUDY: LUNG CA (C34.11) C34.11 MALIGNANT NEOPLASM OF UPPER LOBE, RIGHT BRONCHUS OR L COMPARISON: CT of the chest with contrast from 02/18/2018 and 04/23/2016. TECHNIQUE: CT scan of the chest performed using helical scanning technique with dynamic intravenous contrast injection. Images reviewed with lung, soft tissue and bone windows. Reconstructed coronal and sagittal MPR and MIP images reviewed. All images stored on PACS. All CT scanners at this facility use dose modulation, iterative reconstruction, and/or weight based d osing when appropriate to reduce radiation dose to as low as reasonably achievable (ALARA). [facility]: Dose Right [facility]: CareDose [facility]: Dose Right [facility]: Teradose 4D [facility]: [employer] CONTRAST TYPE AND DOSE: 75 mL Isovue 300- low osmolar. RENAL FUNCTION: Creatinine 1.8 milligrams/deciliter RADIATION DOSE: CT Rad equipment meets quality standard of care and radiation dose reduction techniq ues were employed. CTDIvol: 4.4 - 5.4 mGy. DLP: 722 mGy-cm. . LIMITATIONS: None. FINDINGS: LUNGS AND PLEURA: Status post left upper lobectomy. The trachea main bronchi are patent. There is no bronchiectasis or mucus plugging. There is a moderate right pleural effusion without ev idence of pleural nodularity or enhancement. There is no pulmonary nodule or mass. There is no alve olar consolidation or ground-glass opacification. HILAR AND MEDIASTINAL STRUCTURES: There is a heterogeneous mass in the right paratracheal region that measures approximately 4.2 cm in transverse diameter, and 3.9 cm in AP diameter and 7 cm in cranioca udal diameter ; the mass extends from the thoracic inlet to the khoi and appears to exert mass effe ct on the adjacent SVC. HEART AND VASCULAR STRUCTURES: The tip of the right upper extremity PICC projects within the SVC. Th ere is no aneurysmal dilatation or dissection of the thoracic aorta. The left ventricle is enlarged. There is no central pulmonary embolus. HARDWARE: None in the chest. UPPER ABDOMEN: See separate report of the CT of the abdomen. THYROID AND OTHER SOFT TISSUES: Enlarged and heterogeneous right lobe of the thyroid gland, unchanged from 02/18/2018. There is no enlarged supraclavicular or axillary adenopathy. BONES: No fracture or osseous lesion. OTHER: No other finding. IMPRESSION: 1. Heterogeneous mediastinal mass that measures approximately 4.[address], and 3.9 cm in AP diameter and 7 cm in craniocaudal diameter ; the mass extends from the thoracic inlet to the khoi and appears to exert mass effect on the adjacent SVC. 2. Moderate right pleural effusion. 3. Status post right upper lobectomy. TECHNICAL DOCUMENTATION: JOB ID: [id number] Quality ID # [id number]: Final reports with documentation of one or more dose reduction techniques (e.g., Au tomated exposure control, adjustment of the mA and/or kV according to patient size, use of iterative reconstruction technique) 2010 [employer]- All Rights Reserved Reading location - IP/workstation name: [email or web address]
--- NOTE | 2019-05-10 11:57 | RADIOLOGY REPORT (SQ) ---
EXAM DESCRIPTION: CT ABD/PELVIS WITH IV ONLY COMPLETED DATE/TIME: 05/10/2019 8:57 am REASON FOR STUDY: LUNG CA (C34.11) C34.11 MALIGNANT NEOPLASM OF UPPER LOBE, RIGHT BRONCHUS OR L COMPARISON: CT of the abdomen pelvis with contrast from 03/13/2019. TECHNIQUE: CT scan of the abdomen and pelvis performed using helical scanning technique with dynamic intravenous contrast injection. No oral contrast. Images reviewed with lung, soft tissue, and bone windows. Reconstructed coronal and sagittal MPR images reviewed. Delayed images for evaluation of the urinary system also acquired. All images stored on PACS. All CT scanners at this facility use dose modulation, iterative reconstruction, and/or weight based d osing when appropriate to reduce radiation dose to as low as reasonably achievable (ALARA). [facility]: Dose Right [facility]: CareDose [facility]: Dose Right [facility]: Teradose 4D [facility]: [employer] CONTRAST TYPE AND DOSE: Contrast/concentration: Isovue 300.00 mg/ml; Total Contrast Delivered: 66.0 ml; Total Saline Delivered: 54.0 ml RENAL FUNCTION: Creatinine 1.8 milligrams/deciliter LIMITATIONS: None. FINDINGS: LOWER CHEST: See separate report of the CT of the chest. LIVER: The liver morphology is non cirrhotic. There is no hepatic mass. SPLEEN: No splenomegaly. PANCREAS: Dense parenchymal calcifications in the pancreatic body that could represent the sequela of chronic pancreatitis there is no stranding of the peripancreatic fat or fluid in the peripancreatic space. GALLBLADDER: The gallbladder is surgically absent. There is no dilatation of the biliary ducts. ADRENAL GLANDS: No abnormality. RIGHT KIDNEY AND URETER: No solid masses, hydronephrosis, nephrolithiasis, hydroureter or ureterolith iasis. LEFT KIDNEY AND URETER: Surgically absent. There is no mass in the renal fossa P AORTA AND VESSELS: No aneurysmal dilate station or dissection of the abdominal aorta. The abdominope lvic vasculature is patent. RETROPERITONEUM: Cluster of left periaortic lymph nodes, inferior to the renal fossa, that measure up to 9 mm in short axis diameter are stable. There is no retroperitoneal mass or hemorrhage. BOWEL AND PERITONEAL CAVITY: Findings of prior bowel resection anastomosis in the right and left lowe r quadrants. There is no evidence of bowel wall thickening, obstruction, or pericolonic/ perienteric inflammation. There is no mesenteric adenopathy, free fluid or mass. APPENDIX: Unable to visualize the appendix. PELVIS: Urinary bladder is nondistended. There is no pelvic adenopathy, free fluid or mass. ABDOMINAL WALL: Findings of prior ventral hernia repair with atrophy of the rectus abdominus musculat ure. BONES: No acute findings. OTHER: No other finding. IMPRESSION: 1. No acute intra-abdominal abnormality. 2. Status post left nephrectomy. The cluster of borderline enlarged retroperitoneal lymph nodes inf erior to the left renal fossa is stable. 3. Other findings as detailed above. TECHNICAL DOCUMENTATION: JOB ID: [id number] Quality ID # [id number]: Final reports with documentation of one or more dose reduction techniques (e.g., Au tomated exposure control, adjustment of the mA and/or kV according to patient size, use of iterative reconstruction technique) 2010 [employer]- All Rights Reserved Reading location - IP/workstation name: [email or web address]
== END ==
LOC: RAD 08:09
PROVIDERS: ATTEND Internal Medicine
DX: C34.11 Malignant neoplasm of upper lobe, right bronchus or lung (principal); J90 Pleural effusion, not elsewhere classified
CPT/HCPCS: 71260; 74177; 82565

== ENCOUNTER 2019-07-14 14:59 | Emergency (ER) | payer MEDICAID, MEDICARE ==
--- NOTE | 2019-07-14 15:25 | ER Document Report ---
ED Medical Screen (RME) - General Chief Complaint: Chest Pain Stated Complaint: CHEST PAIN Time Seen by Provider: 07/14/19 15:18 Primary Care Provider: LISSETTE CROCKETT NP [Primary Care Provider] - Follow up as needed TRAVEL OUTSIDE OF THE [place] IN LAST 30 DAYS: No - HPI Notes: 07/14/19 15:23 63-year-old female with a history of lung cancer who is recently had a right lobe resection done presents the emergency room with substernal chest pain and sob that started 1 day ago, comes and goes, worse with eating, erection with movement. Patient states she does have a history of CHF and bradycardia. Patient states she cannot take baby aspirin due to allergy which causes epistaxis. Denies any radiation of pain. I have greeted and performed a rapid initial assessment of this patient. A comprehensive ED assessment and evaluation of the patient, analysis of test results and completion of the medical decision making process will be conducted by additional ED providers. PHYSICAL EXAMINATION: GENERAL: Well-appearing, well-nourished and in no acute distress. HEAD: Atraumatic, normocephalic. EYES: Pupils equal round extraocular movements intact, conjunctiva are normal. NECK: Normal range of motion LUNGS: diminished BS in upper lobes Musculoskeletal: Normal range of motion NEUROLOGICAL: Normal speech, normal gait. PSYCH: Normal mood, normal affect. SKIN: Warm, Dry, normal turgor, no rashes or lesions noted. - Related Data Allergies/Adverse Reactions: sulfamethoxazole [From Bactrim] Allergy (Verified 07/14/19 15:19) trimethoprim [From Bactrim] Allergy (Verified 07/14/19 15:19) aspirin [Aspirin] Adverse Reaction (Verified 07/14/19 15:19) Past Medical History - Social History Family history: Reviewed & Not Pertinent - Past Medical History Cardiac Medical History: Reports: Hx Congestive Heart Failure, Hx Coronary Artery Disease, Hx Heart Attack - 2013, Hx Hypercholesterolemia, Hx Hypertension Pulmonary Medical History: Reports: Hx Bronchitis Denies: Hx Asthma, Hx COPD, Hx Pneumonia, Hx Tuberculosis Neurological Medical History: Reports: Hx Cerebrovascular Accident - stroke 03/2014 while unresponsive following abd surgical complication. Denies: Hx Seizures Renal/ Medical History: Reports: Hx End Stage Renal Disease - kidney cancer, Hx Renal Insufficiency. Denies: Hx Peritoneal Dialysis Malignancy Medical History: Reports: Hx Lung Cancer - Right upper partial lobectomy 11/09/2018., Hx Pancreatic Cancer - Mass to tail pancreas, July 2015. Did not light up on PET scan., Hx Renal (Kidney) Cancer - Cell carcinoma with left nephrectomy 2007. GI Medical History: Reports: Hx Gastritis, Hx Gastroesophageal Reflux Disease Musculoskeltal Medical History: Reports Hx Arthritis - Right hip DJD., Reports Hx Gout - Tentative diagnosis of gout. Psychiatric Medical History: Denies: Hx Depression Past Surgical History: Reports: Hx Abdominal Surgery - HERNIA, PERFORATED BOWEL, Hx Cholecystectomy, Hx Herniorrhaphy - Umbilical hernia repair complicated by bowel perforation, Hx Kidney (Renal Surgery) - Left nephrectomy for renal cell carcinoma, Hx Vascular Surgery - Port placed in right upper arm 01/19/2019. Retinal detachment treated in , Other - EGD to evaluate pancreatic mass. Right upper partial lobectomy 11/09/2018.. Denies: Hx Hysterectomy - Immunizations Hx Diphtheria, Pertussis, Tetanus Vaccination: No Physical Exam - Vital signs Vitals: Temp Pulse Resp BP Pulse Ox 97.9 F 78 18 168/97 H 100 07/14/19 15:09 07/14/19 15:09 07/14/19 15:09 07/14/19 15:09 07/14/19 15:09 Course - Vital Signs Vital signs: Temp Pulse Resp BP Pulse Ox 97.9 F 78 18 168/97 H 100 07/14/19 15:09 07/14/19 15:09 07/14/19 15:09 07/14/19 15:09 07/14/19 15:09 Doctor's Discharge - Discharge Referrals: LISSETTE CROCKETT NP [Primary Care Provider] - Follow up as needed
[2019-07-14 16:11] LABS: APPEARANCE,URINE CLEAR; BILIRUBIN,URINE NEGATIVE (NEGATIVE); COLOR,URINE YELLOW; GLUCOSE, URINE NEGATIVE (NEGATIVE); KETONES,URINE NEGATIVE (NEGATIVE); LEUKOCYTE ESTERASE,URINE NEGATIVE (NEGATIVE); NITRITE,URINE NEGATIVE (NEGATIVE); PROTEIN,URINE 30 mg/dL (NEGATIVE); URINE SPECIFIC GRAVITY 1.013; UROBILINOGEN,URINE NEGATIVE mg/dL (<2.0)
--- NOTE | 2019-07-14 16:21 | RADIOLOGY REPORT (SQ) ---
EXAM DESCRIPTION: CHEST SINGLE VIEW COMPLETED DATE/TIME: 07/14/2019 4:04 pm REASON FOR STUDY: cp with sob COMPARISON: 05/17/2019. EXAM PARAMETERS: NUMBER OF VIEWS: One view. TECHNIQUE: Single frontal radiographic view of the chest acquired. RADIATION DOSE: NA LIMITATIONS: None. FINDINGS: LUNGS AND PLEURA: No opacities, masses or pneumothorax. Stable blunting in the right cost ophrenic angle. MEDIASTINUM AND HILAR STRUCTURES: No masses. Contour normal. HEART AND VASCULAR STRUCTURES: Heart normal in size. Normal vasculature. BONES: No acute findings. Degenerative changes in the spine. HARDWARE: PICC line. OTHER: No other significant finding. IMPRESSION: STABLE APPEARANCE. NO ACUTE RADIOGRAPHIC FINDING IN THE CHEST. TECHNICAL DOCUMENTATION: JOB ID: [id number] [employer]- All Rights Reserved Reading location - IP/workstation name: [email or web address]
[2019-07-14 16:58] LABS: ABSOLUTE LYMPHOCYTES (AUTO) 0.3 10^3/uL (0.5-4.7); ABSOLUTE MONOCYTES (AUTO) 0.3 10^3/uL (0.1-1.4); ABSOLUTE NEUT (AUTO) 3.4 10^3/uL (1.7-8.2); BASOPHILS % (AUTO) 0.3 % (0-2); HEMATOCRIT 25.1 % (36.0-47.0); HEMOGLOBIN 8.1 g/dL (12.0-15.5); LYMPHOCYTES % (AUTO) 6.9 % (13-45); MEAN CORPUSCULAR HEMOGLOBIN 27.6 pg (27.0-33.4); MEAN CORPUSCULAR HGB CONC 32.5 g/dL (32.0-36.0); MEAN CORPUSCULAR VOLUME 85 fl (80-97); MONOCYTES % (AUTO) 8.5 % (3-13); RED BLOOD COUNT 2.94 10^6/uL (3.72-5.28); RED CELL DISTRIBUTION WIDTH 22.3 % (11.5-14.0); SEGMENTED NEUTROPHILS % (AUTO) 84.3 % (42-78); TOTAL CELLS COUNTED % (AUTO) 100 %
--- NOTE | 2019-07-14 17:03 | EKG REPORT ---
SEVERITY:- BORDERLINE ECG - SINUS RHYTHM LVH BY VOLTAGE : Confirmed by: Pascual Rosenthal MD 14-Jul-2019 17:02:46
[2019-07-14 17:06] LABS: ALBUMIN 3.2 g/dL (3.5-5.0); ALKALINE PHOSPHATASE 106 U/L (38-126); ANION GAP 9 (5-19); ASPARTATE AMINO TRANSFERASE 22 U/L (14-36); BILIRUBIN,DIRECT 0.2 mg/dL (0.0-0.4); BILIRUBIN,TOTAL 0.3 mg/dL (0.2-1.3); BLOOD UREA NITROGEN 42 mg/dL (7-20); CALCIUM 8.7 mg/dL (8.4-10.2); CARBON DIOXIDE 24 mmol/L (22-30); CHLORIDE 108 mmol/L (98-107); GLUCOSE 116 mg/dL (75-110); POTASSIUM 4.9 mmol/L (3.6-5.0); TOTAL PROTEIN 6.6 g/dL (6.3-8.2)
[2019-07-14 17:16] LABS: NT PRO BNP 4020 pg/mL (<125)
[2019-07-14 17:19] LABS: TROPONIN I < 0.012 ng/mL
--- NOTE | 2019-07-14 17:25 | ER Document Report ---
ED General - General Chief Complaint: Chest Pain Stated Complaint: CHEST PAIN Time Seen by Provider: 07/14/19 15:18 Primary Care Provider: LISSETTE CAMILO, SPORTS WRITER [Primary Care Provider] - Follow up as needed TRAVEL OUTSIDE OF THE [place] IN LAST 30 DAYS: No - HPI Notes: PCP: Lissette Camilo Oncologist: Gage quinonez who has a h/o lung Ca (NOS) diagnosed she says years ago and had initially undergone "chemo" which was complicated by recurrent pancreatitis, s/p RUL resection [id number], s/p 2 thoracenteses R lung effusion April 2019 then June 2019. She underwent her first cycle of chest wall radiation and tolerated fine. Now last week has started her second cycle and underwent Thursday sessions, and this week Thursday and Thursday sessions. But presents today for she says severe chest pain that started she thinks when she was watching television. She says it is like a gripping pain in the middle of her chest that does not seem to radiate anywhere but it is worsened by movement she feels short of breath as well and weak. She denies any diarrhea or vomiting, no F/C/S. She denies any passing out or near passing out. She says she has felt like she is had some straining to use the have a bowel movement and did notice one stool a few days ago with some streaks bright red but has not had any melena or other hematochezia. She says she does not really take oxycodone 5 mg prescribed to her she says maybe once or twice a month" when I asked her her last dose of any of these she says maybe a month ago. She also does not think that this pain is altered by eating at all she says she has been eating and drinking well and her urination is been per usual. No other pain in any location. No swelling of the extremities or anywhere else. She tells me that her radiation oncologist and oncologist had discussed waiting on thoracentesis for now hoping that the radiation would decrease some of the cancer burden causing the recurrence of the effusion and they could avoid doing this again and start to see some of the current effusion decreased with these treatments. Patient denies any heavy NSAID use otherwise. Not on any steroids. - Related Data Allergies/Adverse Reactions: sulfamethoxazole [From Bactrim] Allergy (Verified 07/14/19 15:19) trimethoprim [From Bactrim] Allergy (Verified 07/14/19 15:19) aspirin [Aspirin] Adverse Reaction (Verified 07/14/19 15:19) Past Medical History - General Information source: Patient, [facility] Records - Social History Smoking Status: Former Smoker Chew tobacco use (# tins/day): No Frequency of alcohol use: None Drug Abuse: None Family History: Reviewed & Not Pertinent, CAD, Hypertension Patient has suicidal ideation: No Patient has homicidal ideation: No - Past Medical History Cardiac Medical History: Reports: Hx Congestive Heart Failure, Hx Coronary Artery Disease, Hx Heart Attack - 2013, Hx Hypercholesterolemia, Hx Hypertension Pulmonary Medical History: Reports: Hx Bronchitis Denies: Hx Asthma, Hx COPD, Hx Pneumonia, Hx Tuberculosis Neurological Medical History: Reports: Hx Cerebrovascular Accident - stroke 03/2014 while unresponsive following abd surgical complication. Denies: Hx Seizures Renal/ Medical History: Reports: Hx End Stage Renal Disease - kidney cancer, Hx Renal Insufficiency. Denies: Hx Peritoneal Dialysis Malignancy Medical History: Reports: Hx Lung Cancer - Right upper partial lobectomy 11/09/2018., Hx Pancreatic Cancer - Mass to tail pancreas, July 2015. Did not light up on PET scan., Hx Renal (Kidney) Cancer - Cell carcinoma with left nephrectomy 2007. GI Medical History: Reports: Hx Gastritis, Hx Gastroesophageal Reflux Disease Musculoskeletal Medical History: Reports Hx Arthritis - Right hip DJD., Reports Hx Gout - Tentative diagnosis of gout. Psychiatric Medical History: Denies: Hx Depression Past Surgical History: Reports: Hx Abdominal Surgery - HERNIA, PERFORATED BOWEL, Hx Cholecystectomy, Hx Herniorrhaphy - Umbilical hernia repair complicated by bowel perforation, Hx Kidney (Renal Surgery) - Left nephrectomy for renal cell carcinoma, Hx Vascular Surgery - Port placed in right upper arm 01/19/2019. R etinal detachment treated in , Other - EGD to evaluate pancreatic mass. Right upper partial lobectomy 11/09/2018.. Denies: Hx Hysterectomy - Immunizations Hx Diphtheria, Pertussis, Tetanus Vaccination: No Hx Pneumococcal Vaccination: 08/03/10 Review of Systems - Review of Systems Constitutional: No symptoms reported EENT: No symptoms reported Cardiovascular: See HPI, Chest pain, Dyspnea. denies: Palpitations, Heart racing, Orthopnea, Paroxysmal Nocturnal Dysp Respiratory: No symptoms reported. denies: Cough, Hurts to breathe, Hemoptysis, Sputum, Stridor, Wheezing Gastrointestinal: No symptoms reported, Constipation. denies: Abdomen distended, Abdominal pain, Diarrhea, Nausea, Vomiting, Poor appetite, Black stools Genitourinary: No symptoms reported Female Genitourinary: No symptoms reported Musculoskeletal: No symptoms reported Skin: No symptoms reported Hematologic/Lymphatic: No symptoms reported Neurological/Psychological: No symptoms reported Physical Exam - Vital signs Vitals: Temp Pulse Resp BP Pulse Ox 97.9 F 78 18 168/97 H 100 07/14/19 15:09 07/14/19 15:09 07/14/19 15:09 07/14/19 15:09 07/14/19 15:09 - General General appearance: Alert, Anxious In distress: None - HEENT Head: Normocephalic, Atraumatic Eyes: Normal. No: Pale conjunctiva Conjunctiva: No: Icteric, Injected Pupils: PERRL Nasal: No: Bloody discharge, Swelling Mouth/Lips: Normal. No: Lesions Mucous membranes: Dry Pharynx: Normal Neck: Normal - Respiratory Respiratory status: No respiratory distress Chest status: Nontender Breath sounds: Normal Chest palpation: Normal - Cardiovascular Rhythm: Regular Murmur: No Pulses: Normal: Radial, Dorsalis pedis Normal capillary refill: No - Rectal Tenderness: No Stool: Heme negative Hemorrhoids: External - Back Back: No: Deformity/step-off, CVA tenderness, Vertebra tenderness - Extremities General upper extremity: Normal inspection General lower extremity: Normal inspection - Neurological Neuro grossly intact: Yes Cognition: Normal Orientation: AAOx4 [place] Coma Scale Eye Opening: Spontaneous [place] Coma Scale Verbal: Oriented [place] Coma Scale Motor: Obeys Commands Justin Coma Scale Total: 15 Speech: Normal Motor strength normal: LUE, RUE, LLE, RLE Sensory: Normal - Psychological Associated symptoms: Normal affect, Normal mood - Skin Skin Temperature: Warm Skin Moisture: Dry Skin Color: Normal Course - Re-evaluation Re-evalutation: 07/15/19 03:11 Patient had no hypoxia at all on arrival for while on room air in the ED. I did before talking to Dr. Troy kimball I had ordered a noncontrast CT chest abdomen pelvis concern for possible structural issues from her known malignancy and then act marcos radiation therapies causing this pain with movement that did not seem musculoskeletal in nature on exam, nor cardiac nor gastrointestinal. This was negative for any obvious lymphadenopathy or other new mediastinal or thoracic findings still there is the right sided effusion without any loculations. Given the fact that her hemoglobin as expected with radiation had gone from 10 in mid May to now [address] Kwan who suggested giving her a unit but then following that with 20 of IV Lasix we discussed that still her renal function was slightly worse than usual her creatinine had gone slightly above 2 from 1.46 back mid-May GFR was a slightly more depressed. And I had yessyi nato before talking to given her 250 cc of normal saline. She tolerated that without any new increase in work of breathing. After the unit of blood she says she had not had increase in work of breathing but she said nothing has made the pain better at all. The pain medicine earlier had helped slightly but then now she is feeling like it is just just as it was. Otherwise her vital signs remained within normal limits. EKG was normal sinus rhythm rate 72 all intervals were within normal limits some evidence of left axis deviation and LVH this initial EKG today was performed at 3:15 PM. She is some repolarization abnormalities in leads 1 and aVL which have not changed from 3 PM to midnight during her work-up and observation in the emergency department. We have now given her the 20 of IV Lasix and she is peed twice in first 30 minutes plan is to assess her symptoms now after diuresis and since her oxycodone should be close peak concentration by now. gage suggest admit if unable to control pain otherwise he will see her in the office. - Vital Signs Vital signs: Temp Pulse Resp BP Pulse Ox 98.3 F 84 11 L 163/90 H 100 07/15/19 00:39 07/15/19 00:39 07/15/19 01:30 07/15/19 01:30 07/15/19 01:30 - Laboratory Result Diagrams: 07/14/19 16:25 07/14/19 16:25 Laboratory results interpreted by me: 07/14/19 07/14/19 07/14/19 15:45 16:25 16:25 RBC 2.94 L Hgb 8.1 L Hct 25.1 L RDW 22.3 H Plt Count 94 L Lymph % (Auto) 6.9 L Absolute Lymphs (auto) 0.3 L Seg Neutrophils % 84.3 H Chloride 108 H BUN 42 H Creatinine 2.01 H Est GFR ( Amer) 30 L Est GFR (MDRD) Non-Af 25 L Glucose 116 H NT-Pro-B Natriuret Pep Albumin 3.2 L Urine Protein 30 H Crossmatch 07/14/19 07/14/19 16:25 20:47 RBC Hgb Hct RDW Plt Count Lymph % (Auto) Absolute Lymphs (auto) Seg Neutrophils % Chloride BUN Creatinine Est GFR ( Amer) Est GFR (MDRD) Non-Af Glucose NT-Pro-B Natriuret Pep 4020 H Albumin Urine Protein Crossmatch See Detail Discharge - Discharge Clinical Impression: Chest pain, Recurrent right pleural effusion, Radiation adverse effect, Acute kidney injury Disposition: HOME, SELF-CARE Additional Instructions: Please make sure you are taking her senna at night and I would add MiraLAX once a day to start to keep your stools soft pudding consistency while taking any opiates. Make sure you are taking medications for pain if you are having it you can use oxycodone every 4 hours as needed I would also suggest trying 650 mg acetaminophen every 6 hours as needed for pain also to establish a baseline level of pain control. Do not take more than 3000 mg acetaminophen from any source in a 24-hour period. Please call both your oncologist and radiation oncologist early first thing in the morning to discuss your ER visit and about if you should be keeping your radiation appointment today, Thursday, July 15, 2019. Of course please watch for any new shortness of breath that persist or pain is not controlled at home or vomiting or fevers or other concerns if needed. Referrals: LISSETTE CAMILO NP [Primary Care Provider] - Follow up as needed
[2019-07-14 17:26] LABS: PLATELET COUNT 94 10^3/uL (150-450)
[2019-07-14] MEDS ORDERED: NORMAL SALINE 250 ML IV ONE (18:37)
[2019-07-14] MEDS ORDERED: NITROGLYCERIN 0.4 MG/TAB 25 TAB/BOTTLE SL PRN (19:03)
[2019-07-14] MEDS ORDERED: HYDROMORPHONE HCL INJ/PF 2 MG/ML AMPULE IV ONE (19:23)
[2019-07-14] MEDS ORDERED: IPRATROPIUM/ALBUTEROL 0.5-2.5 MG/3 ML AMPUL NEB PRN (20:24)
[2019-07-14] MEDS ORDERED: NORMAL SALINE 250 ML IV PRN (20:27)
--- NOTE | 2019-07-14 21:35 | RADIOLOGY REPORT (SQ) ---
CT OF THE CHEST, ABDOMEN, AND PELVIS EXAM DATE: 07/14/2019 8:35 PM TEST LEAD APPLICATION TESTING HISTORY: Chest pain. Upper abdominal pain. COMPARISON: None. TECHNIQUE: CT scan of the chest, abdomen, and pelvis without IV contrast. This exam was performed according to our departmental dose-optimization program, which includes automated exposure control, adjustment of the mA and/or kV according to patient size and/or use of iterative reconstruction technique. FINDINGS: The right thyroid lobe is enlarged containing hypodense structures. No mediastinal or axillary adenopathy. Limited evaluation for hilar adenopathy without IV contrast. The heart size is normal without pericardial effusion. There is a small right pleural effusion. No consolidation or pneumothorax. Surgical sutures are seen in the right upper lung zone. There has been a prior cholecystectomy and left nephrectomy. Coarse calcifications in the pancreas. The liver, spleen, adrenal glands, and right kidney are normal without hydronephrosis. The pelvic organs are normal. There has been a prior appendectomy. The remainder of the small and large bowel are normal. No acute bony findings are seen. The aorta is mildly atherosclerotic. IMPRESSION: 1. Small right pleural effusion without consolidation or pneumothorax. 2. No acute intra-abdominal findings.
[2019-07-14] MEDS ORDERED: FUROSEMIDE INJ/PF 20 MG/2 ML SDV IV ONE (23:00)
[2019-07-14] MEDS ORDERED: AMLODIPINE BESYLATE 10 MG TABLET PO ONE (23:59)
[2019-07-15] MEDS ORDERED: OXYCODONE HCL IR 5 MG TABLET PO PRN
[2019-07-15] MEDS ORDERED: ASPIRIN 81 MG TABLET, CHEWABLE PO ONE (00:02)
[2019-07-15] MEDS ORDERED: FUROSEMIDE INJ/PF 20 MG/2 ML SDV ONE (01:21)
[2019-07-15] MEDS ORDERED: OXYCODONE HCL IR 5 MG TABLET PO ONE (01:28)
[2019-07-15 03:46] VITALS: BP 165/91
--- NOTE | 2019-07-15 06:50 | EKG REPORT ---
SEVERITY:- BORDERLINE ECG - SINUS RHYTHM CONSIDER ANTERIOR INFARCT VS LEAD PLACEMENT ERROR. : Confirmed by: Pascual Rosenthal MD 15-Jul-2019 06:49:40
== END 2019-07-15 03:51 | disposition home or self-care (01) ==
LOC: ER 14:59
DX: R07.9 Chest pain, unspecified (principal); T66.XXXA Radiation sickness, unspecified, initial encounter; N17.9 Acute kidney failure, unspecified; C34.90 Malignant neoplasm of unspecified part of unspecified bronchus or lung; J91.0 Malignant pleural effusion; I11.9 Hypertensive heart disease without heart failure; R06.02 Shortness of breath; R53.1 Weakness; K59.00 Constipation, unspecified; I25.10 Atherosclerotic heart disease of native coronary artery without angina pectoris; Z85.528 Personal history of other malignant neoplasm of kidney; Z85.07 Personal history of malignant neoplasm of pancreas; Z92.21 Personal history of antineoplastic chemotherapy; Z90.2 Acquired absence of lung [part of]; Z90.5 Acquired absence of kidney; Z88.1 Allergy status to other antibiotic agents; Z87.891 Personal history of nicotine dependence
CPT/HCPCS: 93005; 86900; 86901; 36415; 36430; 86850; 85025; 80053; 81001; 84484; 86920; 83880; 71045; 71250; 74176; 93010; P9016; A9270; J1170; J7050; 36591; 96374; 96375; 99285; J1642; J1940

== ENCOUNTER 2019-07-28 12:04 | Emergency (ER) | payer MEDICARE, MEDICAID ==
[2019-07-28 13:20] LABS: HEMATOCRIT 29.2 % (36.0-47.0); HEMOGLOBIN 9.7 g/dL (12.0-15.5); MEAN CORPUSCULAR HEMOGLOBIN 28.8 pg (27.0-33.4); MEAN CORPUSCULAR HGB CONC 33.3 g/dL (32.0-36.0); MEAN CORPUSCULAR VOLUME 87 fl (80-97); RED BLOOD COUNT 3.37 10^6/uL (3.72-5.28); RED CELL DISTRIBUTION WIDTH 19.8 % (11.5-14.0)
[2019-07-28 13:30] LABS: PLATELET COUNT 83 10^3/uL (150-450)
[2019-07-28 13:34] LABS: ALKALINE PHOSPHATASE 77 U/L (38-126); ANION GAP 10 (5-19); ASPARTATE AMINO TRANSFERASE 22 U/L (14-36); BILIRUBIN,DIRECT 0.2 mg/dL (0.0-0.4); BILIRUBIN,TOTAL 0.3 mg/dL (0.2-1.3); BLOOD UREA NITROGEN 29 mg/dL (7-20); CALCIUM 8.6 mg/dL (8.4-10.2); CARBON DIOXIDE 24 mmol/L (22-30); CHLORIDE 109 mmol/L (98-107); CREATINE KINASE 21 U/L (30-135); GLUCOSE 94 mg/dL (75-110); POTASSIUM 4.5 mmol/L (3.6-5.0); TOTAL PROTEIN 6.3 g/dL (6.3-8.2)
[2019-07-28 13:46] LABS: CREATINE KINASE MB 0.26 ng/mL (<4.55)
[2019-07-28 13:52] LABS: TROPONIN I < 0.012 ng/mL
[2019-07-28 13:56] LABS: WHITE BLOOD COUNT 1.4 10^3/uL (4.0-10.5)
[2019-07-28 14:02] LABS: ABSOLUTE LYMPHOCYTES# (MANUAL) 0.1 10^3/uL (0.5-4.7); ABSOLUTE MONOCYTES # (MANUAL) 0.2 10^3/uL (0.1-1.4); BASOPHILS % (MANUAL) 0 % (0-2); EOSINOPHILS % (MANUAL) 0 % (0-6); LYMPHOCYTES % (MANUAL) 6 % (13-45); MONOCYTES % (MANUAL) 12 % (3-13); SEGMENTED NEUTROPHILS % (MAN) 82 % (42-78); TOTAL CELLS COUNTED 50
[2019-07-28 14:04] LABS: ANISOCYTOSIS 2+; OVALOCYTES SLIGHT; PLATELET COMMENT DECREASED; POIKILOCYTOSIS SLIGHT; POLYCHROMASIA SLIGHT
--- NOTE | 2019-07-28 15:28 | ER Document Report ---
ED General - General Chief Complaint: Syncope Stated Complaint: POSSIBLE SYNCOPE Primary Care Provider: LISSETTE CROCKETT NP [Primary Care Provider] - Follow up as needed TRAVEL OUTSIDE OF THE [place] IN LAST 30 DAYS: No - HPI Notes: Today she says as she was walking to go change close before her radiation t reatment she says she felt like her vision was starting to black in and she knew she probably was about to pass out. She denies any bowel changes like black stools or red per rectum or in her stools. No other falls but bystanders say today she seemed to black out and landed on her right knee mostly did not hit her head. A medical emergency on the floor was called and so she was brought into the emergency department. She says she did try to put a little bit of weight on it just here transferring to the bed and it hurts a little bit but she was able to put bear weight on it and transfer. She denies any current feelings that she might pass out no palpitations no chest pain no new shortness of breath she has not been having decline in function in the last few weeks she did miss a few of her radiation treatments may be too over the last week, and says that her doctors felt the radiation "is hard on her esophagus this time". Denies any back pain or wrist or upper extremity pain or thoracic pain only new complaint is right knee swelling and pain I actually know this patient, as I saw her in the ER 07/14/2019 she has a chronic right pleural effusion status post prior thoracentesis. - Related Data Allergies/Adverse Reactions: sulfamethoxazole [From Bactrim] Allergy (Verified 07/14/19 15:19) trimethoprim [From Bactrim] Allergy (Verified 07/14/19 15:19) aspirin [Aspirin] Adverse Reaction (Verified 07/14/19 15:19) Past Medical History - General Information source: Patient - Social History Smoking Status: Former Smoker Frequency of alcohol use: None Drug Abuse: None Family History: Reviewed & Not Pertinent, CAD, Hypertension Patient has suicidal ideation: No Patient has homicidal ideation: No - Past Medical History Cardiac Medical History: Reports: Hx Congestive Heart Failure, Hx Coronary Artery Disease, Hx Heart Attack - 2013, Hx Hypercholesterolemia, Hx Hypertension Pulmonary Medical History: Reports: Hx Bronchitis Denies: Hx Asthma, Hx COPD, Hx Pneumonia, Hx Tuberculosis Neurological Medical History: Reports: Hx Cerebrovascular Accident - stroke 03/2014 while unresponsive following abd surgical complication. Denies: Hx Seizures Renal/ Medical History: Reports: Hx End Stage Renal Disease - kidney cancer, Hx Renal Insufficiency. Denies: Hx Peritoneal Dialysis Malignancy Medical History: Reports: Hx Lung Cancer - Right upper partial lobec harsha 11/09/2018., Hx Pancreatic Cancer - Mass to tail pancreas, July 2015. Did not light up on PET scan., Hx Renal (Kidney) Cancer - Cell carcinoma with left nephrectomy 2007. GI Medical History: Reports: Hx Gastritis, Hx Gastroesophageal Reflux Disease Musculoskeletal Medical History: Reports Hx Arthritis - Right hip DJD., Reports Hx Gout - Tentative diagnosis of gout. Psychiatric Medical History: Denies: Hx Depression Past Surgical History: Reports: Hx Abdominal Surgery - HERNIA, PERFORATED BOWEL, Hx Cholecystectomy, Hx Herniorrhaphy - Umbilical hernia repair complicated by bowel perforation, Hx Kidney (Renal Surgery) - Left nephrectomy for renal cell carcinoma, Hx Vascular Surgery - Port placed in right upper arm 01/19/2019. Retinal detachment treated in , Other - EGD to evaluate pancreatic mass. Right upper partial lobectomy 11/09/2018.. Denies: Hx Hysterectomy - Immunizations Hx Diphtheria, Pertussis, Tetanus Vaccination: No Hx Pneumococcal Vaccination: 08/03/10 Review of Systems - Review of Systems Constitutional: No symptoms reported EENT: No symptoms reported Cardiovascular: No symptoms reported, See HPI, Syncope, Dizziness, Lightheaded. denies: Chest pain, Palpitations, Heart racing, Orthopnea, Dyspnea, Edema, Paroxysmal Nocturnal Dysp Respiratory: No symptoms reported. denies: Cough, Hurts to breathe, Hemoptysis, Short of breath, Sputum, Stridor, Wheezing Gastrointestinal: No symptoms reported Genitourinary: No symptoms reported Female Genitourinary: No symptoms reported Musculoskeletal: No symptoms reported Skin: No symptoms reported Hematologic/Lymphatic: No symptoms reported Neurological/Psychological: No symptoms reported Physical Exam - Vital signs Vitals: Resp Pulse Ox 16 100 07/28/19 12:13 07/28/19 12:13 Interpretation: Normal - General General appearance: Appears well, Alert - HEENT Head: Normocephalic, Atraumatic Eyes: Normal Pupils: PERRL - Respiratory Respiratory status: No respiratory distress Chest status: Nontender Breath sounds: Normal Chest palpation: Normal - Cardiovascular Rhythm: Regular Heart sounds: Normal auscultation Murmur: No - Abdominal Inspection: Normal Distension: No distension Bowel sounds: Normal Tenderness: Nontender Organomegaly: No organomegaly - Back Back: Normal, Nontender - Extremities General upper extremity: Normal inspection, Nontender, Normal color, Normal ROM, Normal temperature General lower extremity: Normal inspection, Nontender, Normal color, Normal ROM, Normal temperature, Normal weight bearing. No: Sami's sign - Neurological Neuro grossly intact: Yes Cognition: Normal Orientation: AAOx4 [place] Coma Scale Eye Opening: Spontaneous [place] Coma Scale Verbal: Oriented [place] Coma Scale Motor: Obeys Commands [place] Coma Scale Total: 15 Speech: Normal Motor strength normal: LUE, RUE, LLE, RLE Sensory: Normal - Psychological Associated symptoms: Normal affect, Normal mood - Skin Skin Temperature: Warm Skin Moisture: Dry Skin Color: Normal Course - Re-evaluation Re-evalutation: 07/28/19 15:36 Per the labs today she has a drop in her white count from 4 to 1.4, and her absolute neutrophil count today is 1.1. The radiation oncology clinic says because of her neutrophils she will not be able to get radiation today but she should come to the appointment tomorrow if everything is okay in the ER. Her EKG today as compared to the 12th, shows NSR rate 79, QRS within normal limits, QTc 469, PA 180. I did repeat a chest x-ray this given the known effusion there on the right lung M this is looks unchanged on the front and lateral views. An x-ray multiview of the knee shows no acute osseous change just some mild knee effusion on the left which is present on exam. Patient is able to bear weight here in the ER will supply with a knee immobilizer but have educated on elevating tonight icing over the next few days and move as tolerated but do not make any quick shifting weightbearing changes or doing anything that hurts it. She can use her usual Tylenol and oxycodone as needed for pain. 07/28/19 22:19 - Vital Signs Vital signs: Temp Pulse Resp BP Pulse Ox 98.8 F 65 19 175/113 H 98 07/28/19 12:32 07/28/19 14:12 07/28/19 22:01 07/28/19 22:00 07/28/19 22:01 - Laboratory Result Diagrams: 07/28/19 13:05 12/26/19 13:05 Laboratory results interpreted by me: 07/28/19 07/28/19 07/28/19 12:00 13:05 13:05 WBC 1.4 L* RBC 3.37 L Hgb 9.7 L Hct 29.2 L RDW 19.8 H Plt Count 83 L Seg Neuts % (Manual) 82 H Lymphocytes % (Manual) 6 L Abs Neuts (Manual) 1.1 L Abs Lymphs (Manual) 0.1 L Chloride 109 H BUN 29 H Creatinine 2.24 H Est GFR ( Amer) 27 L Est GFR (MDRD) Non-Af 22 L POC Glucose 111 H Creatine Kinase 21 L NT-Pro-B Natriuret Pep Albumin 3.0 L Urine Protein 07/28/19 07/28/19 13:05 16:02 WBC RBC Hgb Hct RDW Plt Count Seg Neuts % (Manual) Lymphocytes % (Manual) Abs Neuts (Manual) Abs Lymphs (Manual) Chloride BUN Creatinine Est GFR ( Amer) Est GFR (MDRD) Non-Af POC Glucose Creatine Kinase NT-Pro-B Natriuret Pep 2380 H Albumin Urine Protein 30 H Discharge - Discharge Clinical Impression: Knee effusion, right, Vasovagal syncope, Dehydration, Right knee injury Condition: Fair Disposition: HOME, SELF-CARE Additional Instructions: He can keep your appointment for radiation tomorrow try to keep your leg elevated tonight so the swelling in your knee does not get worse and you can ice it few minutes a few times each day for the next few days and use your Tylenol and oxycodone as you usually do for your pain. You can use knee immobilizer to avoid any major movements and take it easy when you are weightbearing do not do any fast shifting maneuvers. Otherwise make sure you are staying hydrated so you do not have any increased risk of passing out again. Your neutrophil count or white count is low today and so they may need to check it tomorrow before they can give you radiation. Referrals: LISSETTE CROCKETT, REPAIR MILLER [Primary Care Provider] - Follow up as needed
[2019-07-28] MEDS ORDERED: NORMAL SALINE 250 ML IV ONE (15:53)
[2019-07-28 16:22] LABS: APPEARANCE,URINE CLEAR; BILIRUBIN,URINE NEGATIVE (NEGATIVE); COLOR,URINE STRAW; GLUCOSE, URINE NEGATIVE (NEGATIVE); KETONES,URINE NEGATIVE (NEGATIVE); LEUKOCYTE ESTERASE,URINE NEGATIVE (NEGATIVE); NITRITE,URINE NEGATIVE (NEGATIVE); PROTEIN,URINE 30 mg/dL (NEGATIVE); URINE SPECIFIC GRAVITY 1.011; UROBILINOGEN,URINE NEGATIVE mg/dL (<2.0)
--- NOTE | 2019-07-28 16:26 | EKG REPORT ---
SEVERITY:- OTHERWISE NORMAL ECG - SINUS RHYTHM BORDERLINE LEFT AXIS DEVIATION : Confirmed by: Jada Martinez MD 28-Jul-2019 16:25:28
--- NOTE | 2019-07-28 16:32 | RADIOLOGY REPORT (SQ) ---
EXAM DESCRIPTION: CHEST 2 VIEWS COMPLETED DATE/TIME: 07/28/2019 4:22 pm REASON FOR STUDY: passing out R pleural effusion COMPARISON: Chest radiographs 07/14/2019. EXAM PARAMETERS: NUMBER OF VIEWS: two views TECHNIQUE: Digital Frontal and Lateral radiographic views of the chest acquired. RADIATION DOSE: NA LIMITATIONS: none FINDINGS: LUNGS AND PLEURA: No opacities, masses or pneumothorax. No pleural effusion. Stable eleva tion of the right hemidiaphragm and blunting of the right lateral costophrenic angle. MEDIASTINUM AND HILAR STRUCTURES: No masses or contour abnormalities. HEART AND VASCULAR STRUCTURES: Heart normal size. No evidence for failure. BONES: No acute findings. HARDWARE: Unchanged positioning of a right extremity PICC with the tip terminating over the superior cavoatrial junction. OTHER: Surgical clips project over the upper abdomen. IMPRESSION: Unchanged chest. No acute pulmonary findings. TECHNICAL DOCUMENTATION: JOB ID: [id number] [employer]- All Rights Reserved Reading location - IP/workstation name: [email or web address]
--- NOTE | 2019-07-28 16:40 | RADIOLOGY REPORT (SQ) ---
EXAM DESCRIPTION: KNEE LEFT 3 VIEWS COMPLETED DATE/TIME: 07/28/2019 4:22 pm REASON FOR STUDY: cancer pt fall onto R knee, +med effusion on PE COMPARISON: None. NUMBER OF VIEWS: Three views. TECHNIQUE: AP, lateral, and sunrise patella radiographic images acquired of the left knee. LIMITATIONS: None. FINDINGS: MINERALIZATION: Normal. BONES: 7 mm corticated ossicle projecting in between the distal patellar tendon and anterior tibial p lateau on the lateral projection, which may represent sequela from prior trauma or surgery. No displ aced fracture. JOINT: No effusion. SOFT TISSUES: Medial knee soft tissue swelling. No radio-opaque foreign body. OTHER: No other significant finding. IMPRESSION: Medial knee soft tissue swelling. No acute osseous abnormality. TECHNICAL DOCUMENTATION: JOB ID: [id number]- All Rights Reserved Reading location - IP/workstation name: [email or web address]
[2019-07-28 17:21] LABS: PHOSPHORUS 3.4 mg/dL (2.5-4.5)
[2019-07-28 23:29] VITALS: BP 175/113
[2019-07-29 10:45] LABS: PATH REVIEW PATHOLOGIST REVIEWED
--- NOTE | 2019-07-29 19:30 | EKG REPORT ---
SEVERITY:- OTHERWISE NORMAL ECG - SINUS RHYTHM BORDERLINE LEFT AXIS DEVIATION : Confirmed by: Jada Martinez MD 29-Jul-2019 19:28:59
== END 2019-07-28 22:50 | disposition home or self-care (01) ==
LOC: ER 12:04
DX: S89.91XA Unspecified injury of right lower leg, initial encounter (principal); M25.461 Effusion, right knee; R55 Syncope and collapse; E86.0 Dehydration; M25.561 Pain in right knee; M79.89 Other specified soft tissue disorders; W19.XXXA Unspecified fall, initial encounter; Z88.8 Allergy status to other drugs, medicaments and biological substances; Z87.891 Personal history of nicotine dependence; I50.9 Heart failure, unspecified; I25.10 Atherosclerotic heart disease of native coronary artery without angina pectoris; I25.2 Old myocardial infarction; I11.0 Hypertensive heart disease with heart failure
CPT/HCPCS: 93005; 36591; 99284; 96360; 36415; 82553; 82962; 82550; 83735; 84100; 85025; 80053; 81001; 84484; 83880; 71046; 73562; 93010; L1830; J7050; J1642

== ENCOUNTER → 2019-08-22 | Outpatient (CLI) | payer MEDICAID, MEDICARE ==
--- NOTE | 2019-08-22 15:29 | RADIOLOGY REPORT (SQ) ---
EXAM DESCRIPTION: MRI HEAD WITHOUT COMPLETED DATE/TIME: 08/22/2019 2:36 pm REASON FOR STUDY: C34.11 MALIGNANT NEOPLASM OF UPPER LOBE, RIGHT BRONCHUS OR LUNG C34.11 MALIGNANT NEOPLASM OF UPPER LOBE, RIGHT BRONCHUS OR L COMPARISON: None. TECHNIQUE: Multiplanar imaging includes non-contrasted T1, T2, FLAIR, and diffusion with ADC map seq uences. Images stored on PACS. LIMITATIONS: None. FINDINGS: ANATOMY: No anomalies. Normal vascular flow voids. Pituitary fossa normal. CSF SPACES: Normal in size and contour. No hemorrhage. CEREBRUM: Sulci and gyri normal in size and contour. Normal white matter signal on FLAIR imaging. No evidence of hemorrhage, mass, or extraaxial fluid collection. POSTERIOR FOSSA: No signal alteration. No hemorrhage. No edema, masses or mass effect. Internal odessa tory canals, cerebello-pontine angles, mastoids normal. DIFFUSION IMAGING: Negative for acute or sub-acute infarction. ORBITS: No masses. Globes normal. PARANASAL SINUSES: No fluid levels. Mucosa normal. OTHER: No other significant finding. IMPRESSION: NORMAL MRI OF THE BRAIN WITHOUT INTRAVENOUS GADOLINIUM CONTRAST. EVIDENCE OF ACUTE STROKE: NO. TECHNICAL DOCUMENTATION: JOB ID: [id number] [employer]- All Rights Reserved Reading location - IP/workstation name: [email or web address]
== END ==
LOC: RAD 13:55
PROVIDERS: ATTEND Internal Medicine
DX: C34.11 Malignant neoplasm of upper lobe, right bronchus or lung (principal); R51 Headache
CPT/HCPCS: 70551

== ENCOUNTER 2019-09-09 13:14 | Inpatient (IN) | payer MEDICARE, MEDICAID ==
[2019-09-09] MEDS ORDERED: BENZONATATE 100 MG CAPSULE PO ONE (13:39)
--- NOTE | 2019-09-09 13:41 | ER Document Report ---
ED Medical Screen (RME) - General Chief Complaint: Shortness Of Breath Stated Complaint: SHORTNESS OF BREATH/WHEEZING Time Seen by Provider: 09/09/19 13:37 Primary Care Provider: BALA PRESTON MD [Primary Care Provider] - Follow up as needed Notes: 64-year-old female with history of lung cancer was sent by Dr. Preston over for evaluation. Patient has been having dyspnea since last week. Patient also says cough. Patient is speaking 2-3 word sentences. Patient is 98% on room air. Dry coughing noted in triage. I have greeted and performed a rapid initial assessment of this patient. A comprehensive ED assessment and evaluation of the patient, analysis of test results and completion of the medical decision making process with be conducted by additional ED providers. TRAVEL OUTSIDE OF THE [place] IN LAST 30 DAYS: No - Related Data Allergies/Adverse Reactions: sulfamethoxazole [From Bactrim] Allergy (Verified 09/09/19 13:36) trimethoprim [From Bactrim] Allergy (Verified 09/09/19 13:36) aspirin [Aspirin] Adverse Reaction (Verified 09/09/19 13:36) Past Medical History - Social History Family history: Reviewed & Not Pertinent - Past Medical History Cardiac Medical History: Reports: Hx Congestive Heart Failure, Hx Coronary Artery Disease, Hx Heart Attack - 2013, Hx Hypercholesterolemia, Hx Hypertension Pulmonary Medical History: Reports: Hx Bronchitis Denies: Hx Asthma, Hx COPD, Hx Pneumonia, Hx Tuberculosis Neurological Medical History: Reports: Hx Cerebrovascular Accident - stroke 03/2014 while unresponsive following abd surgical complication. Denies: Hx Seizures Renal/ Medical History: Reports: Hx End Stage Renal Disease - kidney cancer, Hx Renal Insufficiency. Denies: Hx Peritoneal Dialysis Malignancy Medical History: Reports: Hx Lung Cancer - Right upper partial lobectomy 11/09/2018., Hx Pancreatic Cancer - Mass to tail pancreas, July 2015. Did not light up on PET scan., Hx Renal (Kidney) Cancer - Cell carcinoma with left nephrectomy 2007. GI Medical History: Reports: Hx Gastritis, Hx Gastroesophageal Reflux Disease Musculoskeltal Medical History: Reports Hx Arthritis - Right hip DJD., Reports Hx Gout - Tentative diagnosis of gout. Psychiatric Medical History: Denies: Hx Depression Past Surgical History: Reports: Hx Abdominal Surgery - HERNIA, PERFORATED BOWEL, Hx Cholecystectomy, Hx Herniorrhaphy - Umbilical hernia repair complicated by bowel perforation, Hx Kidney (Renal Surgery) - Left nephrectomy for renal cell carcinoma, Hx Vascular Surgery - Port placed in right upper arm 01/19/2019. Retinal detachment treated in , Other - EGD to evaluate pancreatic mass. Right upper partial lobectomy 11/09/2018.. Denies: Hx Hysterectomy - Immunizations Hx Diphtheria, Pertussis, Tetanus Vaccination: No Physical Exam - Vital signs Vitals: Temp Pulse Resp BP Pulse Ox 98.6 F 105 H 16 123/85 98 09/09/19 13:33 09/09/19 13:33 09/09/19 13:33 09/09/19 13:33 09/09/19 13:33 Course - Vital Signs Vital signs: Temp Pulse Resp BP Pulse Ox 98.6 F 105 H 16 123/85 98 09/09/19 13:33 09/09/19 13:33 09/09/19 13:33 09/09/19 13:33 09/09/19 13:33 Doctor's Discharge - Discharge Referrals: BALA PRESTON MD [Primary Care Provider] - Follow up as needed
--- NOTE | 2019-09-09 14:26 | RADIOLOGY REPORT (SQ) ---
EXAM DESCRIPTION: CHEST 2 VIEWS COMPLETED DATE/TIME: 09/09/2019 2:15 pm REASON FOR STUDY: cough, hx lung CA COMPARISON: 07/28/2019 EXAM PARAMETERS: NUMBER OF VIEWS: two views TECHNIQUE: Digital Frontal and Lateral radiographic views of the chest acquired. RADIATION DOSE: NA LIMITATIONS: none FINDINGS: LUNGS AND PLEURA: No opacities, masses or pneumothorax. Unchanged right suprahilar scarri ng and surgical change. Unchanged tenting of the right hemidiaphragm. MEDIASTINUM AND HILAR STRUCTURES: No masses or contour abnormalities. HEART AND VASCULAR STRUCTURES: Heart normal size. No evidence for failure. BONES: No acute findings. HARDWARE: Right approach PICC tip terminates at SVC. Surgical clips overlie right upper quadrant. OTHER: No other significant finding. IMPRESSION: Stable postsurgical changes in the right hemithorax. No evidence of acute process. TECHNICAL DOCUMENTATION: JOB ID: [id number] [employer]- All Rights Reserved Reading location - IP/workstation name: [email or web address]
--- NOTE | 2019-09-09 14:53 | EKG REPORT ---
SEVERITY:- BORDERLINE ECG - SINUS RHYTHM BORDERLINE LEFT AXIS DEVIATION CONSIDER ANTERIOR INFARCT : Confirmed by: Jada Martinez MD 09-Sep-2019 14:51:57
--- NOTE | 2019-09-09 15:14 | ER Document Report ---
ED General - General Chief Complaint: Shortness Of Breath Stated Complaint: SHORTNESS OF BREATH/WHEEZING Time Seen by Provider: 09/09/19 13:37 Primary Care Provider: BALA PRESTON MD [ACTIVE STAFF] - Follow up as needed Notes: Patient is a 64-year-old -[place] female with a past medical history significant for left nephrectomy status post left kidney cancer, right-sided lung cancer status post 20% removal of the right lung who was receiving chemo but had to stop due to adverse reactions and just finished radiation therapy about 3 weeks ago who presents to the emergency department with a chief compla int of frequent cough. The patient states over the past week she is developed a cough. She states cough comes and waves. It is dry in nature and sometimes hard to control. She states she went for "hydration" today at Dr. Troy ikmball's office and they noted her cough and referred her to the emergency department for further care. Upon arrival here she was 98% on room air. In no acute distress. She was placed on oxygen, given Tessalon Perles and a work-up was initiated. She does admit to some mild shortness of breath but only with cough. States that the oxygen and Tessalon Perles have helped her tremendously. She denies any chest pain or hemoptysis. Denies any lower extremity pain or swelling or any known history of DVT or PE. TRAVEL OUTSIDE OF THE [place] IN LAST 30 DAYS: No - Related Data Allergies/Adverse Reactions: sulfamethoxazole [From Bactrim] Allergy (Verified 09/09/19 13:36) trimethoprim [From Bactrim] Allergy (Verified 09/09/19 13:36) aspirin [Aspirin] Adverse Reaction (Verified 09/09/19 13:36) Home Medications: amlodipine. calcitrol. sodium bicarbonate Past Medical History - Social History Smoking Status: Former Smoker Chew tobacco use (# tins/day): No Frequency of alcohol use: None Drug Abuse: None Family History: Reviewed & Not Pertinent, CAD, Hypertension Patient has suicidal ideation: No Patient has homicidal ideation: No - Past Medical History Cardiac Medical History: Reports: Hx Congestive Heart Failure, Hx Coronary Artery Disease, Hx Heart Attack - 2013, Hx Hypercholesterolemia, Hx Hypertension Pulmonary Medical History: Reports: Hx Bronchitis Denies: Hx Asthma, Hx COPD, Hx Pneumonia, Hx Tuberculosis Neurological Medical History: Reports: Hx Cerebrovascular Accident - stroke 03/2014 while unresponsive following abd surgical complication. Denies: Hx Seizures Renal/ Medical History: Reports: Hx End Stage Renal Disease - kidney cancer, Hx Renal Insufficiency. Denies: Hx Peritoneal Dialysis Malignancy Medical History: Reports: Hx Lung Cancer - Right upper partial lobectomy 11/09/2018., Hx Pancreatic Cancer - Mass to tail pancreas, July 2015. Did not light up on PET scan., Hx Renal (Kidney) Cancer - Cell carcinoma with left nephrectomy 2007. GI Medical History: Reports: Hx Gastritis, Hx Gastroesophageal Reflux Disease Musculoskeletal Medical History: Reports Hx Arthritis - Right hip DJD., Reports Hx Gout - Tentative diagnosis of gout. Psychiatric Medical History: Denies: Hx Depression Past Surgical History: Reports: Hx Abdominal Surgery - HERNIA, PERFORATED BOWEL, Hx Cholecystectomy, Hx Herniorrhaphy - Umbilical hernia repair complicated by bowel perforation, Hx Kidney (Renal Surgery) - Left nephrectomy for renal cell carcinoma, Hx Vascular Surgery - Port placed in right upper arm 01/19/2019. Retinal detachment treated in , Other - EGD to evaluate pancreatic mass. Ri t upper partial lobectomy 11/09/2018.. Denies: Hx Hysterectomy - Immunizations Hx Diphtheria, Pertussis, Tetanus Vaccination: No Hx Pneumococcal Vaccination: 08/03/10 Review of Systems - Review of Systems Respiratory: Cough, Short of breath -: Yes All other systems reviewed and negative Physical Exam - Vital signs Vitals: Temp Pulse Resp BP Pulse Ox 98.6 F 105 H 16 123/85 98 09/09/19 13:33 09/09/19 13:33 09/09/19 13:33 09/09/19 13:33 09/09/19 13:33 - General General appearance: Appears well, Alert In distress: Mild - HEENT Head: Normocephalic, Atraumatic Eyes: Normal Conjunctiva: Normal Extraocular movements intact: Yes Eyelashes: Normal Pupils: PERRL Ears: Normal External canal: Normal Tympanic membrane: Normal Sinus: Normal Nasal: Normal Mouth/Lips: Normal Mucous membranes: Normal Pharynx: Normal Neck: Normal - Respiratory Respiratory status: No respiratory distress Chest status: Nontender Breath sounds: Normal Chest palpation: Normal - Cardiovascular Rhythm: Regular Heart sounds: Normal auscultation - Extremities General upper extremity: Normal inspection, Nontender, Normal color, Normal ROM, Normal temperature General lower extremity: Normal inspection, Nontender, Normal color, Normal ROM, Normal temperature, Normal weight bearing. No: Sami's sign - Neurological Neuro grossly intact: Yes Cognition: Normal Orientation: AAOx4 Justin Coma Scale Eye Opening: Spontaneous Justin Coma Scale Verbal: Oriented Justin Coma Scale Motor: Obeys Commands Justin Coma Scale Total: 15 Speech: Normal - Psychological Associated symptoms: Normal affect, Normal mood - Skin Skin Temperature: Warm Skin Moisture: Dry Skin Color: Normal Course - Re-evaluation Re-evalutation: 09/09/19 16:[address] Troy kimball, patient's oncologist. I wanted to scan the patient to rule out PE given her history and her presentation. We cannot scan her given her creatinine. We question VQ scan but agree that with her lung capacity she may not be able to tolerate the ventilation portion of the exam and given her past radiation to the chest it would likely show inconsistencies leading to possible false positives or equivocal's. He advised his suspicion for PE is very low and would not consider working that up. He recommended to have a CT scan of the chest without contrast to ensure that it is completely clear and if so to treat the patient for outpatient pneumonia with an inhaler and antibiotics and possibly Tessalon Perles to go with. We will move forward with that plan at this time. Patient is currently stable. 09/09/19 17:27 CAT scan of the chest showing a right lower lobe pneumonia and pleural effusion. Given patient's history of cancer, neutropenia and immunosuppressed state is warranted that she is admitted to the hospital. She was given Rocephin and Zithromax here. I spoke with Dr. Lopez, the hospitalist. He will evaluate the patient in the emergency department for admission. - Vital Signs Vital signs: Temp Pulse Resp BP Pulse Ox 98.6 F 105 H 26 H 159/104 H 100 09/09/19 13:33 09/09/19 13:33 09/09/19 17:01 09/09/19 17:01 09/09/19 17:01 - Laboratory Result Diagrams: 09/09/19 15:19 09/09/19 15:19 Laboratory results interpreted by me: 09/09/19 09/09/19 15:19 15:19 WBC 2.1 L RBC 2.92 L Hgb 8.6 L Hct 26.2 L RDW 16.7 H Plt Count 110 L Absolute Neuts (auto) 1.4 L Carbon Dioxide 19 L BUN 28 H Creatinine 2.07 H Est GFR ( Amer) 29 L Est GFR (MDRD) Non-Af 24 L Glucose 127 H Albumin 3.2 L Discharge - Discharge Clinical Impression: Pleural effusion Pneumonia Qualifiers: Pneumonia type: due to unspecified organism Laterality: unspecified laterality Lung location: unspecified part of lung Qualified Code(s): J18.9 - Pneumonia, unspecified organism Condition: Serious Disposition: ADMITTED INPATIENT Admitting Provider: Jessica (Hospitalist) Unit Admitted: Telemetry Referrals: BALA PRESTON MD [ACTIVE STAFF] - Follow up as needed
[2019-09-09 15:52] LABS: ABSOLUTE LYMPHOCYTES (AUTO) 0.5 10^3/uL (0.5-4.7); ABSOLUTE MONOCYTES (AUTO) 0.2 10^3/uL (0.1-1.4); ABSOLUTE NEUT (AUTO) 1.4 10^3/uL (1.7-8.2); BASOPHILS % (AUTO) 0.5 % (0-2); TOTAL CELLS COUNTED % (AUTO) 100 %; WHITE BLOOD COUNT 2.1 10^3/uL (4.0-10.5)
[2019-09-09 16:01] LABS: BLOOD UREA NITROGEN 28 mg/dL (7-20); CALCIUM 8.4 mg/dL (8.4-10.2); CARBON DIOXIDE 19 mmol/L (22-30); CHLORIDE 107 mmol/L (98-107); GLUCOSE 127 mg/dL (75-110); POTASSIUM 3.6 mmol/L (3.6-5.0)
[2019-09-09 16:02] LABS: ALBUMIN 3.2 g/dL (3.5-5.0); ALKALINE PHOSPHATASE 76 U/L (38-126); ANION GAP 13 (5-19); ASPARTATE AMINO TRANSFERASE 19 U/L (14-36); BILIRUBIN,DIRECT 0.3 mg/dL (0.0-0.4); BILIRUBIN,TOTAL 0.3 mg/dL (0.2-1.3); TOTAL PROTEIN 6.7 g/dL (6.3-8.2)
[2019-09-09 16:10] LABS: HEMATOCRIT 26.2 % (36.0-47.0); HEMOGLOBIN 8.6 g/dL (12.0-15.5); LYMPHOCYTES % (AUTO) 21.8 % (13-45); MEAN CORPUSCULAR HEMOGLOBIN 29.5 pg (27.0-33.4); MEAN CORPUSCULAR HGB CONC 32.9 g/dL (32.0-36.0); MEAN CORPUSCULAR VOLUME 90 fl (80-97); MONOCYTES % (AUTO) 10.4 % (3-13); PLATELET COUNT 110 10^3/uL (150-450); RED BLOOD COUNT 2.92 10^6/uL (3.72-5.28); RED CELL DISTRIBUTION WIDTH 16.7 % (11.5-14.0); SEGMENTED NEUTROPHILS % (AUTO) 67.3 % (42-78)
--- NOTE | 2019-09-09 17:15 | RADIOLOGY REPORT (SQ) ---
EXAM DESCRIPTION: CT CHEST WITHOUT COMPLETED DATE/TIME: 09/09/2019 4:49 pm REASON FOR STUDY: cough COMPARISON: 07/14/2019 TECHNIQUE: CT scan performed of the chest without intravenous contrast. Images reviewed with lung, soft tissue and bone windows. Reconstructed coronal and sagittal MPR images reviewed. All images st ored on PACS. All CT scanners at this facility use dose modulation, iterative reconstruction, and/or weight based d osing when appropriate to reduce radiation dose to as low as reasonably achievable (ALARA). [facility]: Dose Right [facility]: CareDose [facility]: Dose Right [facility]: Teradose 4D [facility]: [employer] RADIATION DOSE: CT Rad equipment meets quality standard of care and radiation dose reduction techniq ues were employed. CTDIvol: 5.5 mGy. DLP: 196 mGy-cm. mGy. LIMITATIONS: No technical limitations. FINDINGS: LUNGS AND PLEURA: Postoperative changes within the right hemithorax from prior upper lobec harsha. There is a chronic right-sided pleural effusion, mildly increased from prior. Patchy centrilo bular ground-glass opacities greatest within the right lower lobe. Additional patchy centrilobular o pacities within the left upper lobe. No pneumothorax. HILAR AND MEDIASTINAL STRUCTURES: Postsurgical changes within the right hilum. There is persistent a symmetric right hilar soft tissue along the mainstem bronchus, evaluation limited without intravenous contrast. HEART AND VASCULAR STRUCTURES: Coronary atherosclerosis. No aneurysm. Normal heart size. No perica rdial effusion. UPPER ABDOMEN: No acute findings. Prior cholecystectomy. Extensive pancreatic calcifications. THYROID AND OTHER SOFT TISSUES: With asymmetrically enlarged right lobe, stable. BONES: No acute bony abnormality. No suspicious osseous lesions. HARDWARE: Surgical clips and chain chhaya along the right hilum. Right approach PICC tip terminates at SVC. OTHER: No other significant findings. IMPRESSION: 1. Mild centrilobular ground-glass opacities within the right lower lobe suggestive of pneumonia. 2. Postoperative changes within the right hemithorax with mild to moderate chronic right-sided pleur al effusion, mildly increased from prior. 3. Additional postsurgical changes within the right hilum with persistent asymmetric right hilar sof t tissue, possibly postoperative although underlying disease is not entirely excluded on this noncont rast exam. Recommend attention on follow-up. TECHNICAL DOCUMENTATION: JOB ID: [id number] Quality ID # [id number]: Final reports with documentation of one or more dose reduction techniques (e.g., Au tomated exposure control, adjustment of the mA and/or kV according to patient size, use of iterative reconstruction technique) 2010 [employer]- All Rights Reserved Reading location - IP/workstation name: [email or web address]
[2019-09-09] MEDS ORDERED: AZITHROMYCIN INJ 500 MG VIAL IV ONE (17:21)
[2019-09-09] MEDS ORDERED: CEFTRIAXONE 1 GM/D5W RTU 1 GM/50 ML RTUPB IV ONE (17:35)
[2019-09-09] MEDS ORDERED: HYDROCODONE BIT/HOMATROPINE SYRUP 5 ML UDCUP PO PRN (18:21)
--- NOTE | 2019-09-09 18:44 | PDOC H&P ---
History of Present Illness Admission Date/PCP: 09/09/19 17:56 LISSETTE CROCKETT NP History of Present Illness: JIHAN MORA is a 64 year old female with a previous history of a renal cell ca rcinoma status post left nephrectomy who subsequently developed a right lower lobe lung cancer and who has had a partial lobectomy and tried chemotherapy but was unable to tolerate it so she is just been getting radiation to that area. She is developed a cough that is been getting progressively worse over the past few days. She is not had a fever. The cough has not been productive. She is not coughed up any blood. She went to her oncologist office today for some hydration as she does from time to time, and when he heard her coughing he had her come to the ER. She has a chronic pleural effusion which showed up on CT, there was also some mild amount of edema. Due to concern for possible pneumonia she is being admitted. Is not hypoxic. Past Medical History Cardiac Medical History: Reports: Congestive Heart Failure, Coronary Artery Disease, Myocardial Infarction - 2013, Hyperlipidema, Hypertension Pulmonary Medical History: Reports: Bronchitis Denies: Asthma, Chronic Obstructive Pulmonary Disease (COPD), Pneumonia, Tuberculosis Neurological Medical History: Denies: Seizures Renal/ Medical History: Reports: End Stage Renal Disease - kidney cancer Malignancy Medical History: Reports: Lung Cancer - Right upper partial lobectomy 11/09/2018., Pancreatic Cancer - Mass to tail pancreas, July 2015. Did not light up on PET scan., Renal (Kidney) Cancer - Cell carcinoma with left nephrectomy 2007. GI Medical History: Reports: Gastroesophageal Reflux Disease Musculoskeltal Medical History: Reports: Arthritis - Right hip DJD., Gout - Tentative diagnosis of gout. Psychiatric Medical History: Denies: Depression Hematology: Denies: Anemia Past Surgical History Past Surgical History: Reports: Cholecystectomy, Herniorrhaphy - Umbilical hernia repair complicated by bowel perforation, Vascular Surgery - Port placed in right upper arm 01/19/2019. Retinal detachment treated in , Other - EGD to evaluate pancreatic mass. Right upper partial lobectomy 11/09/2018. Denies: Hysterectomy Social History Smoking Status: Former Smoker Electronic Cigarette use?: No Frequency of Alcohol Use: None Hx Recreational Drug Use: No Drugs: None Hx Prescription Drug Abuse: No Family History Family History: Reviewed & Not Pertinent, CAD, Hypertension Parental Family History Reviewed: Yes Children Family History Reviewed: Yes Sibling(s) Family History Reviewed.: Yes Medication/Allergy Allergies/Adverse Reactions: sulfamethoxazole [From Bactrim] Allergy (Verified 09/09/19 13:36) trimethoprim [From Bactrim] Allergy (Verified 09/09/19 13:36) aspirin [Aspirin] Adverse Reaction (Verified 09/09/19 13:36) Review of Systems All systems: reviewed and no additional remarkable complaints except as stated - All systems were reviewed and were negative except as noted in the HPI Physical Exam Vital Signs: Temp Pulse Resp BP Pulse Ox 98.6 F 105 H 25 H 159/104 H 100 09/09/19 13:33 09/09/19 13:33 09/09/19 18:00 09/09/19 17:01 09/09/19 17:01 Intake & Output 09/08/19 09/09/19 09/10/19 06:59 06:59 06:59 Weight 72.4 kg General appearance: PRESENT: cooperative, disheveled, mild distress Head exam: PRESENT: atraumatic, normocephalic Eye exam: PRESENT: EOMI, PERRLA. ABSENT: conjunctival injection, nystagmus, scleral icterus Ear exam: PRESENT: normal external ear exam Mouth exam: PRESENT: moist, neck supple Throat exam: ABSENT: post pharyngeal erythema Neck exam: PRESENT: full ROM. ABSENT: carotid bruit, JVD, lymphadenopathy, meningismus, tenderness, thyromegaly Respiratory exam: PRESENT: clear to auscultation marianna, symmetrical, unlabored, other - Persistent dry cough. ABSENT: accessory muscle use, chest wall tenderness, crackles, prolonged expiratory phas, rales, retraction, rhonchi, tachypnea, wheezes Cardiovascular exam: PRESENT: RRR, +S1, +S2 Pulses: PRESENT: normal carotid pulses Vascular exam: PRESENT: normal capillary refill GI/Abdominal exam: PRESENT: normal bowel sounds, soft. ABSENT: distended, guarding, rebound, tenderness Extremities exam: ABSENT: clubbing, pedal edema Musculoskeletal exam: PRESENT: normal inspection. ABSENT: deformity Neurological exam: PRESENT: alert, awake, oriented to person, oriented to place, oriented to time, oriented to situation, CN II-XII grossly intact. ABSENT: motor sensory deficit Psychiatric exam: PRESENT: appropriate affect, normal mood Skin exam: PRESENT: dry, warm Results Laboratory Results: 09/09/19 15:19 09/09/19 15:19 09/09/19 09/09/19 09/09/19 15:19 15:19 15:19 WBC 2.1 L RBC 2.92 L Hgb 8.6 L Hct 26.2 L MCV 90 MCH 29.5 MCHC 32.9 RDW 16.7 H Plt Count 110 L Seg Neutrophils % 67.3 Sodium 138.6 Potassium 3.6 Chloride 107 Carbon Dioxide 19 L Anion Gap 13 BUN 28 H Creatinine 2.07 H Est GFR ( Amer) 29 L Glucose 127 H Lactic Acid 1.6 Calcium 8.4 Total Bilirubin 0.3 AST 19 Alkaline Phosphatase 76 Total Protein 6.7 Albumin 3.2 L 09/09/19 15:19 Troponin I < 0.012 Impressions: Chest X-Ray 09/09/19 13:39 IMPRESSION: Stable postsurgical changes in the right hemithorax. No evidence of acute process. Chest CT 09/09/19 16:25 IMPRESSION: 1. Mild centrilobular ground-glass opacities within the right lower lobe suggestive of pneumonia. 2. Postoperative changes within the right hemithorax with mild to moderate chronic right-sided pleural effusion, mildly increased from prior. 3. Additional postsurgical changes within the right hilum with persistent as ymmetric right hilar soft tissue, possibly postoperative although underlying disease is not entirely excluded on this noncontrast exam. Recommend attention on follow-up. Assessment and Plan - Diagnosis (1) Pneumonitis Is this a current diagnosis for this admission?: Yes Plan: It was called pneumonia, but this could also be a radiation pneumonitis from the radiation treatments that she is receiving. She just finished radiation about a week ago and had 30 treatments. She has been started empirically on antibiotics and cultures have been drawn, but I am going to add some steroids for anti-inflammatory effect see if this will have some benefit for her. I will also order her some cough syrup. (2) Hypertension Qualifiers: Hypertension type: essential hypertension Qualified Code(s): I10 - Essential (primary) hypertension Is this a current diagnosis for this admission?: Yes Plan: We will continue her amlodipine (3) Pleural effusion Is this a current diagnosis for this admission?: Yes Plan: Chronic and stable - Time Time Spent with patient: 35 or more minutes - Inpatient Certification Based on my medical assessment, after consideration of the patient's comorbidities, presenting symptoms, or acuity I expect that the services needed warrant INPATIENT care.: Yes I certify that my determination is in accordance with my understanding of Medicare's requirements for reasonable and necessary INPATIENT services [42 CFR 412.3e].: Yes Medical Necessity: Significant Comorbidiites Make Outpatient Treatment Too Risky, Need Close Monitoring Due to Risk of Patient Decompensation, Need for IV Antibiotics
[2019-09-09] MEDS: HYDROCODONE BIT/HOMATROPINE 5-1.5 MG TABLET PO PRN (19:40)
[2019-09-09] MEDS: METHYLPREDNISOLONE INJ 40 MG/1 ML SDV IV SCH (19:41)
[2019-09-09] MEDS: HEPARIN SOD (PORCINE) 5,000 UNIT/ML 1 ML VIAL SUBCUT SCH (22:43)
[2019-09-09] MEDS ORDERED: ACETAMINOPHEN 325 MG TABLET PO PRN (23:17)
[2019-09-09] MEDS: ACETAMINOPHEN 325 MG TABLET NG PRN (23:23)
[2019-09-10] MEDS: METHYLPREDNISOLONE INJ 40 MG/1 ML SDV IV SCH ×3 (05:39→21:15)
[2019-09-10] MEDS: HEPARIN SOD (PORCINE) 5,000 UNIT/ML 1 ML VIAL SUBCUT SCH ×3 (05:39→21:08)
[2019-09-10 06:18] LABS: HEMATOCRIT 26.3 % (36.0-47.0); HEMOGLOBIN 8.7 g/dL (12.0-15.5); MEAN CORPUSCULAR HEMOGLOBIN 29.8 pg (27.0-33.4); MEAN CORPUSCULAR VOLUME 90 fl (80-97); PLATELET COUNT 103 10^3/uL (150-450); RED BLOOD COUNT 2.91 10^6/uL (3.72-5.28); RED CELL DISTRIBUTION WIDTH 17.1 % (11.5-14.0)
[2019-09-10 06:35] LABS: ANION GAP 12 (5-19); BLOOD UREA NITROGEN 27 mg/dL (7-20); CALCIUM 8.7 mg/dL (8.4-10.2); CARBON DIOXIDE 17 mmol/L (22-30); CHLORIDE 110 mmol/L (98-107); GLUCOSE 168 mg/dL (75-110); POTASSIUM 4.1 mmol/L (3.6-5.0)
[2019-09-10 07:54] LABS: WHITE BLOOD COUNT 1.9 10^3/uL (4.0-10.5)
--- NOTE | 2019-09-10 09:31 | PDOC CONSULTATION ---
Consultation Consult Date: 09/10/19 Attending physician:: DU COLLINS Provider Consulted: BALA PRESTON Consult reason:: Cough, shortness of breath, dyspnea on exertion History of Present Illness Admission Date/PCP: 09/09/19 17:56 LISSETTE CROCKETT NP Patient complains of: Shortness of breath, cough History of Present Illness: JIHAN MORA is a 64 year old female with known history of persistent cough, shortness of breath over the last week, she presented to our office yesterday and was in extremitas with severe coughing continuous emesis, fevers at home were running low-grade at 99, in our office it was 100. Therefore we directed her to the ER. In the ER she was very uncomfortable coughing, but not hypoxic. I recommended that CT noncontrasted be done, creatinine has been more elevated ever since radiation, she always had chronic kidney disease for some extent with a creatinine ranging 1.2-1.4, but since chemotherapy then radiation therapy creatinine has been closer to 2. CT imaging indicated new opacities, consistent with either pneumonia or may be radiation pneumonitis, and both is being treated currently by hospitalist team. She is feeling a little bit better. Past Medical History Cardiac Medical History: Reports: Congestive Heart Failure, Coronary Artery Disease, Myocardial Infarction - 2013, Hyperlipidema, Hypertension Pulmonary Medical History: Reports: Bronchitis Denies: Asthma, Chronic Obstructive Pulmonary Disease (COPD), Pneumonia, Tuberculosis Neurological Medical History: Denies: Seizures Renal/ Medical History: Reports: End Stage Renal Disease - kidney cancer Malignancy Medical History: Reports: Lung Cancer - Right upper partial lobectomy 11/09/2018., Pancreatic Cancer - Mass to tail pancreas, July 2015. Did not light up on PET scan., Renal (Kidney) Cancer - Cell carcinoma with left nephrectomy 2007. GI Medical History: Reports: Gastroesophageal Reflux Disease Musculoskeltal Medical History: Reports: Arthritis - Right hip DJD., Gout - Tentative diagnosis of gout. Psychiatric Medical History: Denies: Depression Hematology: Denies: Anemia Past Surgical History Past Surgical History: Reports: Cholecystectomy, Herniorrhaphy - Umbilical hernia repair complicated by bowel perforation, Vascular Surgery - Port placed in right upper arm 01/19/2019. Retinal detachment treated in , Other - EGD to evaluate pancreatic mass. Right upper partial lobectomy 11/09/2018. Denies: Hysterectomy Social History Information Source: Patient Smoking Status: Former Smoker Electronic Cigarette use?: No Frequency of Alcohol Use: None Hx Recreational Drug Use: No Drugs: None Hx Prescription Drug Abuse: No - Advance Directive Resuscitation Status: Full Code Family History Family History: Reviewed & Not Pertinent, CAD, Hypertension Parental Family History Reviewed: Yes Children Family History Reviewed: Yes Sibling(s) Family History Reviewed.: Yes Medication/Allergy Home Medications: Amlodipine Besylate [Norvasc 5 mg Tablet] 5 mg PO DAILY 09/09/19 Calcitriol 0.5 mcg PO DAILY 09/09/19 Sodium Bicarbonate [Sodium Bicarbonate 650 mg Tablet] 650 mg PO DAILY 09/09/19 Allergies/Adverse Reactions: sulfamethoxazole [From Bactrim] Allergy (Verified 09/09/19 13:36) trimethoprim [From Bactrim] Allergy (Verified 09/09/19 13:36) aspirin [Aspirin] Adverse Reaction (Verified 09/09/19 13:36) Review of Systems Constitutional: ABSENT: chills, fever(s), headache(s), weight gain, weight loss Eyes: ABSENT: visual disturbances Ears: ABSENT: hearing changes Cardiovascular: ABSENT: chest pain, dyspnea on exertion, edema, orthropnea, palpitations Respiratory: ABSENT: cough, hemoptysis Gastrointestinal: ABSENT: abdominal pain, constipation, diarrhea, hematemesis, hematochezia, nausea, vomiting Genitourinary: ABSENT: dysuria, hematuria Musculoskeletal: ABSENT: joint swelling Integumentary: ABSENT: rash, wounds Neurological: ABSENT: abnormal gait, abnormal speech, confusion, dizziness, focal weakness, syncope Psychiatric: ABSENT: anxiety, depression, homidical ideation, suicidal ideation Endocrine: ABSENT: cold intolerance, heat intolerance, polydipsia, polyuria Hematologic/Lymphatic: ABSENT: easy bleeding, easy bruising Physical Exam Vital Signs: Temp Pulse Resp BP Pulse Ox 97.6 F 58 L 18 134/89 H 100 09/10/19 07:53 09/10/19 07:53 09/10/19 07:53 09/10/19 07:53 09/10/19 07:53 Intake & Output 09/09/19 09/10/19 09/11/19 06:59 06:59 06:59 Intake Total 50 Output Total 400 Balance -350 Weight 74.8 kg General appearance: PRESENT: no acute distress, well-developed, well-nourished Head exam: PRESENT: atraumatic, normocephalic Eye exam: PRESENT: conjunctiva pink, EOMI, PERRLA. ABSENT: scleral icterus Ear exam: PRESENT: normal external ear exam Mouth exam: PRESENT: moist, tongue midline Neck exam: ABSENT: carotid bruit, JVD, lymphadenopathy, thyromegaly Respiratory exam: PRESENT: clear to auscultation marianna. ABSENT: rales, rhonchi, wheezes Cardiovascular exam: PRESENT: RRR. ABSENT: diastolic murmur, rubs, systolic murmur Pulses: PRESENT: normal dorsalis pedis pul Vascular exam: PRESENT: normal capillary refill GI/Abdominal exam: PRESENT: normal bowel sounds, soft. ABSENT: distended, guarding, mass, organolmegaly, rebound, tenderness Rectal exam: PRESENT: deferred Extremities exam: PRESENT: full ROM. ABSENT: calf tenderness, clubbing, pedal edema Neurological exam: PRESENT: alert, awake, oriented to person, oriented to place, oriented to time, oriented to situation, CN II-XII grossly intact. ABSENT: motor sensory deficit Psychiatric exam: PRESENT: appropriate affect, normal mood. ABSENT: homicidal ideation, suicidal ideation Skin exam: PRESENT: dry, intact, warm. ABSENT: cyanosis, rash Results Laboratory Results: 09/10/19 05:45 09/10/19 05:45 09/09/19 09/09/19 09/09/19 15:19 15:19 15:19 WBC 2.1 L RBC 2.92 L Hgb 8.6 L Hct 26.2 L MCV 90 MCH 29.5 MCHC 32.9 RDW 16.7 H Plt Count 110 L Seg Neutrophils % 67.3 Sodium 138.6 Potassium 3.6 Chloride 107 Carbon Dioxide 19 L Anion Gap 13 BUN 28 H Creatinine 2.07 H Est GFR ( Amer) 29 L Glucose 127 H Lactic Acid 1.6 Calcium 8.4 Total Bilirubin 0.3 AST 19 Alkaline Phosphatase 76 Total Protein 6.7 Albumin 3.2 L 09/10/19 09/10/19 05:45 05:45 WBC 1.9 L RBC 2.91 L Hgb 8.7 L Hct 26.3 L MCV 90 MCH 29.8 MCHC 33.0 RDW 17.1 H Plt Count 103 L Seg Neutrophils % Sodium 139.2 Potassium 4.1 Chloride 110 H Carbon Dioxide 17 L Anion Gap 12 BUN 27 H Creatinine 2.06 H Est GFR ( Amer) 30 L Glucose 168 H Lactic Acid Calcium 8.7 Total Bilirubin AST Alkaline Phosphatase Total Protein Albumin 09/09/19 15:19 Troponin I < 0.012 Impressions: Chest X-Ray 09/09/19 13:39 IMPRESSION: Stable postsurgical changes in the right hemithorax. No evidence of acute process. Chest CT 09/09/19 16:25 IMPRESSION: 1. Mild centrilobular ground-glass opacities within the right lower lobe suggestive of pneumonia. 2. Postoperative changes within the right hemithorax with mild to moderate chr onic right-sided pleural effusion, mildly increased from prior. 3. Additional postsurgical changes within the right hilum with persistent asymmetric right hilar soft tissue, possibly postoperative although underlying disease is not entirely excluded on this noncontrast exam. Recommend attention on follow-up. Status: Image reviewed by me Assessment & Plan - Diagnosis (1) Pneumonia Qualifiers: Pneumonia type: due to unspecified organism Laterality: bilateral Lung location: unspecified part of lung Qualified Code(s): J18.9 - Pneumonia, unspecified organism Is this a current diagnosis for this admission?: Yes Plan: Agree with community-acquired pneumonia approach continue per hospitalist team (2) Pneumonitis Is this a current diagnosis for this admission?: Yes Plan: Possible radiation pneumonitis agree with high-dose steroids, she will need a 2 to 3-week steroid taper as an outpatient (3) Pancytopenia Is this a current diagnosis for this admission?: Yes Plan: Pancytopenia has been persistent since first dose of chemotherapy, hemoglobin is 8.2 if it gets in the 7 range would consider 1 unit of packed red blood cell. White count has been persistently low. - Time Time Spent: Greater than 70 Minutes
[2019-09-10] MEDS: AMLODIPINE BESYLATE 10 MG TABLET PO SCH (10:07)
[2019-09-10] MEDS: CEFTRIAXONE 1 GM/D5W RTU 1 GM/50 ML RTUPB IV SCH (10:07)
[2019-09-10] MEDS: HYDROCODONE BIT/HOMATROPINE 5-1.5 MG TABLET PO PRN (15:40)
--- NOTE | 2019-09-10 16:57 | PDOC PROGRESS REPORT ---
Subjective Progress Note for:: 09/10/19 Subjective:: No adverse events overnight. No new complaints. Her appetite has improved. Her cough is definitely improved. Reason For Visit: RLL PNA, RADIATION PNEUMONITIS Physical Exam Vital Signs: Temp Pulse Resp BP Pulse Ox 97.8 F 67 17 125/76 100 09/10/19 15:54 09/10/19 15:54 09/10/19 15:54 09/10/19 15:54 09/10/19 15:54 Intake & Output 09/09/19 09/10/19 09/11/19 06:59 06:59 06:59 Intake Total 50 170 Output Total 400 Balance -350 170 Weight 74.8 kg General appearance: PRESENT: no acute distress, cooperative, disheveled Respiratory exam: PRESENT: clear to auscultation marianna, symmetrical, unlabored. ABSENT: accessory muscle use, crackles, prolonged expiratory phas, rales, retr action, rhonchi, tachypnea, wheezes Cardiovascular exam: PRESENT: RRR, +S1, +S2 Pulses: PRESENT: normal carotid pulses Vascular exam: PRESENT: normal capillary refill GI/Abdominal exam: PRESENT: normal bowel sounds, soft. ABSENT: distended, guarding, rebound, tenderness Extremities exam: ABSENT: clubbing, pedal edema Musculoskeletal exam: PRESENT: normal inspection. ABSENT: deformity Neurological exam: PRESENT: alert, awake, oriented to person, oriented to place, oriented to situation Psychiatric exam: PRESENT: appropriate affect, normal mood Skin exam: PRESENT: dry, warm Results Laboratory Results: 09/10/19 05:45 09/10/19 05:45 09/10/19 09/10/19 05:45 05:45 WBC 1.9 L RBC 2.91 L Hgb 8.7 L Hct 26.3 L MCV 90 MCH 29.8 MCHC 33.0 RDW 17.1 H Plt Count 103 L Sodium 139.2 Potassium 4.1 Chloride 110 H Carbon Dioxide 17 L Anion Gap 12 BUN 27 H Creatinine 2.06 H Est GFR ( Amer) 30 L Glucose 168 H Calcium 8.7 09/09/19 15:19 Troponin I < 0.012 Impressions: Chest X-Ray 09/09/19 13:39 IMPRESSION: Stable postsurgical changes in the right hemithorax. No evidence of acute process. Chest CT 09/09/19 16:25 IMPRESSION: 1. Mild centrilobular ground-glass opacities within the right lower lobe suggestive of pneumonia. 2. Postoperative changes within the right hemithorax with mild to moderate chronic right-sided pleural effusion, mildly increased from prior. 3. Additional postsurgical changes within the right hilum with persistent asymmetric right hilar soft tissue, possibly postoperative although underlying disease is not entirely excluded on this noncontrast exam. Recommend attention on follow-up. Assessment and Plan - Diagnosis (1) Pneumonitis Is this a current diagnosis for this admission?: Yes Plan: Responding well to steroids, possibly also antibiotics. We will continue a course of antibiotics, but will also send her home with a prolonged steroid taper at oncology's recommendation. (2) Hypertension Qualifiers: Hypertension type: essential hypertension Qualified Code(s): I10 - Essential (primary) hypertension Is this a current diagnosis for this admission?: Yes Plan: We will continue her amlodipine (3) Pleural effusion Is this a current diagnosis for this admission?: Yes Plan: Chronic and stable - Time Time Spent with patient: 15-24 minutes
[2019-09-10] MEDS: AZITHROMYCIN 500 MG in DEXTROSE 5%-WATER 250 ML IV SCH (18:24)
[2019-09-10] MEDS: ACETAMINOPHEN 325 MG TABLET NG PRN (19:53)
[2019-09-11] MEDS: METHYLPREDNISOLONE INJ 40 MG/1 ML SDV IV SCH ×3 (05:20→21:07)
[2019-09-11] MEDS: HEPARIN SOD (PORCINE) 5,000 UNIT/ML 1 ML VIAL SUBCUT SCH ×3 (05:23→21:02)
[2019-09-11 05:43] LABS: HEMATOCRIT 26.3 % (36.0-47.0); HEMOGLOBIN 8.7 g/dL (12.0-15.5); MEAN CORPUSCULAR HEMOGLOBIN 29.7 pg (27.0-33.4); MEAN CORPUSCULAR HGB CONC 33.1 g/dL (32.0-36.0); MEAN CORPUSCULAR VOLUME 90 fl (80-97); PLATELET COUNT 122 10^3/uL (150-450); RED BLOOD COUNT 2.92 10^6/uL (3.72-5.28); RED CELL DISTRIBUTION WIDTH 17.3 % (11.5-14.0)
[2019-09-11 05:44] LABS: WHITE BLOOD COUNT 5.1 10^3/uL (4.0-10.5)
[2019-09-11 05:54] LABS: ANION GAP 12 (5-19); BLOOD UREA NITROGEN 34 mg/dL (7-20); CALCIUM 8.8 mg/dL (8.4-10.2); CARBON DIOXIDE 18 mmol/L (22-30); CHLORIDE 112 mmol/L (98-107); GLUCOSE 158 mg/dL (75-110); POTASSIUM 4.4 mmol/L (3.6-5.0)
[2019-09-11] MEDS: AMLODIPINE BESYLATE 10 MG TABLET PO SCH (09:46)
[2019-09-11] MEDS: CEFTRIAXONE 1 GM/D5W RTU 1 GM/50 ML RTUPB IV SCH (09:46)
--- NOTE | 2019-09-11 14:09 | PDOC PROGRESS REPORT ---
Subjective Progress Note for:: 09/11/19 Subjective:: No adverse events overnight. No new complaints. She is coughing a little bit more this morning. She is on room air and her oxygen levels have been good. She is not really tried to get up and walk on room air yet but she is willing to try today. Reason For Visit: RLL PNA, RADIATION PNEUMONITIS Physical Exam Vital Signs: Temp Pulse Resp BP Pulse Ox 97.5 F 62 16 130/84 H 100 09/11/19 11:40 09/11/19 11:40 09/11/19 11:40 09/11/19 11:40 09/11/19 11:40 Intake & Output 09/10/19 09/11/19 09/12/19 06:59 06:59 06:59 Intake Total 50 908 118 Output Total 400 400 Balance -350 508 118 Weight 74.8 kg 74.6 kg General appearance: PRESENT: no acute distress, cooperative, disheveled Respiratory exam: PRESENT: clear to auscultation marianna, symmetrical, unlabored. ABSENT: accessory muscle use, crackles, prolonged expiratory phas, rales, retraction, rhonchi, tachypnea, wheezes Cardiovascular exam: PRESENT: RRR, +S1, +S2 Pulses: PRESENT: normal carotid pulses Vascular exam: PRESENT: normal capillary refill GI/Abdominal exam: PRESENT: normal bowel sounds, soft. ABSENT: distended, guard ing, rebound, tenderness Extremities exam: ABSENT: clubbing, pedal edema Musculoskeletal exam: PRESENT: normal inspection. ABSENT: deformity Neurological exam: PRESENT: alert, awake, oriented to person, oriented to place, oriented to situation Psychiatric exam: PRESENT: appropriate affect, normal mood Skin exam: PRESENT: dry, warm Results Laboratory Results: 09/11/19 05:20 09/11/19 05:20 09/11/19 09/11/19 05:20 05:20 WBC 5.1 D RBC 2.92 L Hgb 8.7 L Hct 26.3 L MCV 90 MCH 29.7 MCHC 33.1 RDW 17.3 H Plt Count 122 L Sodium 142.0 Potassium 4.4 Chloride 112 H Carbon Dioxide 18 L Anion Gap 12 BUN 34 H Creatinine 1.99 H Est GFR ( Amer) 31 L Glucose 158 H Calcium 8.8 09/10/19 15:35 Sputum Gram Stain - Final 09/10/19 15:35 Sputum Sputum Culture - Final 09/09/19 17:58 Blood Blood Culture (PCR) - Final Staphylococcus Species 09/09/19 15:19 Troponin I < 0.012 Impressions: Chest X-Ray 09/09/19 13:39 IMPRESSION: Stable postsurgical changes in the right hemithorax. No evidence of acute process. Chest CT 09/09/19 16:25 IMPRESSION: 1. Mild centrilobular ground-glass opacities within the right lower lobe suggestive of pneumonia. 2. Postoperative changes within the right hemithorax with mild to moderate chronic right-sided pleural effusion, mildly increased from prior. 3. Additional postsurgical changes within the right hilum with persistent asymmetric right hilar soft tissue, possibly postoperative although underlying disease is not entirely excluded on this noncontrast exam. Recommend attention on follow-up. Assessment and Plan - Diagnosis (1) Pneumonitis Is this a current diagnosis for this admission?: Yes Plan: Responding well to steroids, possibly also antibiotics. We will continue a course of antibiotics, but will also send her home with a prolonged steroid taper at oncology's recommendation. (2) Hypertension Qualifiers: Hypertension type: essential hypertension Qualified Code(s): I10 - Essent ial (primary) hypertension Is this a current diagnosis for this admission?: Yes Plan: We will continue her amlodipine (3) Pleural effusion Is this a current diagnosis for this admission?: Yes Plan: Chronic and stable - Time Time Spent with patient: 15-24 minutes
[2019-09-11] MEDS: HYDROCODONE BIT/HOMATROPINE 5-1.5 MG TABLET PO PRN (16:12)
[2019-09-11] MEDS: AZITHROMYCIN 500 MG in DEXTROSE 5%-WATER 250 ML IV SCH (17:28)
[2019-09-12] MEDS: METHYLPREDNISOLONE INJ 40 MG/1 ML SDV IV SCH ×3 (06:04→22:40)
[2019-09-12] MEDS: HEPARIN SOD (PORCINE) 5,000 UNIT/ML 1 ML VIAL SUBCUT SCH ×3 (06:07→21:45)
[2019-09-12 06:29] LABS: HEMATOCRIT 26.1 % (36.0-47.0); HEMOGLOBIN 8.6 g/dL (12.0-15.5); MEAN CORPUSCULAR HGB CONC 33.1 g/dL (32.0-36.0); MEAN CORPUSCULAR VOLUME 90 fl (80-97); PLATELET COUNT 125 10^3/uL (150-450); RED BLOOD COUNT 2.89 10^6/uL (3.72-5.28); RED CELL DISTRIBUTION WIDTH 17.3 % (11.5-14.0); WHITE BLOOD COUNT 6.8 10^3/uL (4.0-10.5)
[2019-09-12 06:49] LABS: ANION GAP 10 (5-19); BLOOD UREA NITROGEN 42 mg/dL (7-20); CALCIUM 8.8 mg/dL (8.4-10.2); CARBON DIOXIDE 19 mmol/L (22-30); CHLORIDE 114 mmol/L (98-107); GLUCOSE 142 mg/dL (75-110); POTASSIUM 4.6 mmol/L (3.6-5.0)
--- NOTE | 2019-09-12 08:03 | PDOC PROGRESS REPORT ---
Subjective Progress Note for:: 09/12/19 Subjective:: Patient doing better, feeling much better Reason For Visit: RLL PNA, RADIATION PNEUMONITIS Physical Exam Vital Signs: Temp Pulse Resp BP Pulse Ox 97.3 F 59 L 18 133/77 H 100 09/11/19 23:08 09/11/19 23:08 09/11/19 23:08 09/11/19 23:08 09/11/19 23:08 Intake & Output 09/11/19 09/12/19 09/13/19 06:59 06:59 06:59 Intake Total 908 653 Output Total 400 Balance 508 653 Weight 74.6 kg 75.9 kg General appearance: PRESENT: no acute distress, well-developed, well-nourished Head exam: PRESENT: atraumatic, normocephalic Eye exam: PRESENT: conjunctiva pink, EOMI, PERRLA. ABSENT: scleral icterus Ear exam: PRESENT: normal external ear exam Mouth exam: PRESENT: moist, tongue midline Neck exam: ABSENT: carotid bruit, JVD, lymphadenopathy, thyromegaly Respiratory exam: PRESENT: clear to auscultation marianna. ABSENT: rales, rhonchi, wheezes Cardiovascular exam: PRESENT: RRR. ABSENT: diastolic murmur, rubs, systolic murmur Pulses: PRESENT: normal dorsalis pedis pul Vascular exam: PRESENT: normal capillary refill GI/Abdominal exam: PRESENT: normal bowel sounds, soft. ABSENT: distended, guarding, mass, organolmegaly, rebound, tenderness Rectal exam: PRESENT: deferred Extremities exam: PRESENT: full ROM. ABSENT: calf tenderness, clubbing, pedal edema Neurological exam: PRESENT: alert, awake, oriented to person, oriented to place, oriented to time, oriented to situation, CN II-XII grossly intact. ABSENT: motor sensory deficit Psychiatric exam: PRESENT: appropriate affect, normal mood. ABSENT: homicidal ideation, suicidal ideation Skin exam: PRESENT: dry, intact, warm. ABSENT: cyanosis, rash Results Laboratory Results: 09/12/19 06:00 09/12/19 06:00 09/12/19 09/12/19 06:00 06:00 WBC 6.8 RBC 2.89 L Hgb 8.6 L Hct 26.1 L MCV 90 MCH 30.0 MCHC 33.1 RDW 17.3 H Plt Count 125 L Sodium 142.7 Potassium 4.6 Chloride 114 H Carbon Dioxide 19 L Anion Gap 10 BUN 42 H Creatinine 2.29 H Est GFR ( Amer) 26 L Glucose 142 H Calcium 8.8 09/09/19 17:58 Blood Blood Culture (PCR) - Final Staphylococcus Species 09/10/19 15:35 Sputum Gram Stain - Final 09/10/19 15:35 Sputum Sputum Culture - Final 09/09/19 15:19 Troponin I < 0.012 Impressions: Chest X-Ray 09/09/19 13:39 IMPRESSION: Stable postsurgical changes in the right hemithorax. No evidence of acute process. Chest CT 09/09/19 16:25 IMPRESSION: 1. Mild centrilobular ground-glass opacities within the right l ower lobe suggestive of pneumonia. 2. Postoperative changes within the right hemithorax with mild to moderate chronic right-sided pleural effusion, mildly increased from prior. 3. Additional postsurgical changes within the right hilum with persistent asymmetric right hilar soft tissue, possibly postoperative although underlying disease is not entirely excluded on this noncontrast exam. Recommend attention on follow-up. Assessment & Plan - Diagnosis (1) Pneumonia Qualifiers: Pneumonia type: due to group B Streptococcus Laterality: bilateral Lung location: upper lobe of lung Qualified Code(s): J15.3 - Pneumonia due to stre ptococcus, group B Is this a current diagnosis for this admission?: Yes Plan: Pneumonia, positive GPC in blood, spoke with Dr. Lopez who feels this is probably a contaminant, will need oral antibiotic on discharge (2) Pneumonitis Is this a current diagnosis for this admission?: Yes Plan: Continue with steroid on discharge will need taper (3) Pancytopenia Is this a current diagnosis for this admission?: Yes Plan: Improved - Time Time Spent with patient: 15-24 minutes
[2019-09-12 10:01] LABS: PATH REVIEW PATHOLOGIST REVIEWED
[2019-09-12] MEDS: AMLODIPINE BESYLATE 10 MG TABLET PO SCH (10:36)
[2019-09-12] MEDS: CEFTRIAXONE 1 GM/D5W RTU 1 GM/50 ML RTUPB IV SCH (10:37)
--- NOTE | 2019-09-12 13:19 | CDI QUERY ---
CDI Query CDI Review: Dear Jessica, To better reflect your patients severity of illness, morbidity, and resource utilization Please LINK any condition to present on admission, if applicable. The terms probable, suspected, likely, possible or still to be ruled out may be used. If you agree, please add to the Progress Notes and Discharge Summary Query Clinical indicators ESRD? CKD STAGE 3? CKD STAGE 4? UNABLE TO DETERMINE? Cr 1.99 - 2.29 GFR 22 25 DOCUMENTED HX ESRD IN H&P 09/09/2019 Renal/ Medical History: Reports: End Stage Renal Disease - kidney cancer STAGE 3= Cr 1.4 2.5 GFR 30 59 STAGE 4= Cr 2.5 4.5 GFR 15 - 29 Thank you, SUKI Clinical Documentation [facility] Office [phone]
[2019-09-12] MEDS: AZITHROMYCIN 500 MG in DEXTROSE 5%-WATER 250 ML IV SCH (17:11)
--- NOTE | 2019-09-12 18:10 | PDOC PROGRESS REPORT ---
Subjective Reason For Visit: RLL PNA, RADIATION PNEUMONITIS Physical Exam Vital Signs: Temp Pulse Resp BP Pulse Ox 97.5 F 72 17 124/75 100 09/12/19 15:05 09/12/19 15:05 09/12/19 15:05 09/12/19 15:05 09/12/19 15:05 Intake & Output 09/11/19 09/12/19 09/13/19 06:59 06:59 06:59 Intake Total 908 653 50 Output Total 400 Balance 508 653 50 Weight 74.6 kg 75.9 kg Results Laboratory Results: 09/12/19 06:00 09/12/19 06:00 09/12/19 09/12/19 06:00 06:00 WBC 6.8 RBC 2.89 L Hgb 8.6 L Hct 26.1 L MCV 90 MCH 30.0 MCHC 33.1 RDW 17.3 H Plt Count 125 L Sodium 142.7 Potassium 4.6 Chloride 114 H Carbon Dioxide 19 L Anion Gap 10 BUN 42 H Creatinine 2.29 H Est GFR ( Amer) 26 L Glucose 142 H Calcium 8.8 09/09/19 17:58 Blood Blood Culture (PCR) - Final Staphylococcus Species 09/09/19 15:19 Troponin I < 0.012 Impressions: Chest X-Ray 09/09/19 13:39 IMPRESSION: Stable postsurgical changes in the right hemithorax. No evidence of acute process. Chest CT 09/09/19 16:25 IMPRESSION: 1. Mild centrilobular ground-glass opacities within the right lower lobe suggestive of pneumonia. 2. Postoperative changes within the right hemithorax with mild to moderate chronic right-sided pleural effusion, mildly increased from prior. 3. Additional postsurgical changes within the right hilum with persistent asymmetric right hilar soft tissue, possibly postoperative although underlying disease is not entirely excluded on this noncontrast exam. Recommend attention on follow-up. Assessment and Plan - Diagnosis (1) Pneumonitis Is this a current diagnosis for this admission?: Yes Plan: Responding well to steroids, possibly also antibiotics. We will continue a course of antibiotics, but will also send her home with a prolonged steroid taper at oncology's recommendation. (2) Hypertension Qualifiers: Hypertension type: essential hypertension Qualified Code(s): I10 - Essential (primary) hypertension Is this a current diagnosis for this admission?: Yes Plan: We will continue her amlodipine (3) Pleural effusion Is this a current diagnosis for this admission?: Yes Plan: Chronic and stable (4) Kidney disease, chronic, stage IV (GFR 15-29 ml/min) Is this a current diagnosis for this admission?: Yes Plan: Present on admission, and her typical range. Medications are dosed accordingly. (5) Positive blood culture Is this a current diagnosis for this admission?: Yes Plan: 1 of her blood culture showed a coagulase-negative Staphylococcus, but oncology would like for the cultures to be repeated to make sure that it is negative and that it is not a true pathogen. - Time Time Spent with patient: 15-24 minutes
[2019-09-12] MEDS: HYDROCODONE BIT/HOMATROPINE 5-1.5 MG TABLET PO PRN (22:39)
[2019-09-13] MEDS: HEPARIN SOD (PORCINE) 5,000 UNIT/ML 1 ML VIAL SUBCUT SCH ×2 (05:22→13:26)
[2019-09-13] MEDS: METHYLPREDNISOLONE INJ 40 MG/1 ML SDV IV SCH ×2 (05:26→14:15)
--- NOTE | 2019-09-13 09:01 | PDOC PROGRESS REPORT ---
Subjective Progress Note for:: 09/13/19 Subjective:: Patient seems to be doing better this morning, eating well, was able to walk outside the room Reason For Visit: RLL PNA, RADIATION PNEUMONITIS Physical Exam Vital Signs: Temp Pulse Resp BP Pulse Ox 97.4 F 72 16 136/84 H 100 09/13/19 07:56 09/13/19 07:56 09/13/19 07:56 09/13/19 07:56 09/13/19 07:56 Intake & Output 09/12/19 09/13/19 09/14/19 06:59 06:59 06:59 Intake Total 653 1738 Output Total 1999 Balance 653 -262 Weight 75.9 kg 73.3 kg General appearance: PRESENT: no acute distress, well-developed, well-nourished Head exam: PRESENT: atraumatic, normocephalic Eye exam: PRESENT: conjunctiva pink, EOMI, PERRLA. ABSENT: scleral icterus Ear exam: PRESENT: normal external ear exam Mouth exam: PRESENT: moist, tongue midline Neck exam: ABSENT: carotid bruit, JVD, lymphadenopathy, thyromegaly Respiratory exam: PRESENT: clear to auscultation marianna. ABSENT: rales, rhonchi, wheezes Cardiovascular exam: PRESENT: RRR. ABSENT: diastolic murmur, rubs, systolic murmur Pulses: PRESENT: normal dorsalis pedis pul Vascular exam: PRESENT: normal capillary refill GI/Abdominal exam: PRESENT: normal bowel sounds, soft. ABSENT: distended, guarding, mass, organolmegaly, rebound, tenderness Rectal exam: PRESENT: deferred Extremities exam: PRESENT: full ROM. ABSENT: calf tenderness, clubbing, pedal edema Neurological exam: PRESENT: alert, awake, oriented to person, oriented to place, oriented to time, oriented to situation, CN II-XII grossly intact. ABSENT: motor sensory deficit Psychiatric exam: PRESENT: appropriate affect, normal mood. ABSENT: homicidal ideation, suicidal ideation Skin exam: PRESENT: dry, intact, warm. ABSENT: cyanosis, rash Results Laboratory Results: 09/12/19 06:00 09/12/19 06:00 09/09/19 17:58 Blood Blood Culture (PCR) - Final Staphylococcus Species 09/09/19 15:19 Troponin I < 0.012 Impressions: Chest X-Ray 09/09/19 13:39 IMPRESSION: Stable postsurgical changes in the right hemithorax. No evidence of acute process. Chest CT 09/09/19 16:25 IMPRESSION: 1. Mild centrilobular ground-glass opacities within the right lower lobe suggestive of pneumonia. 2. Postoperative changes within the right hemithorax with mild to moderate chronic right-sided pleural effusion, mildly increased from prior. 3. Additional postsurgical changes within the right hilum with persistent asymmetric right hilar soft tissue, possibly postoperative although underlying disease is not entirely excluded on this noncontrast exam. Recommend attention on follow-up. Assessment & Plan - Diagnosis (1) Pneumonia Qualifiers: Pneumonia type: due to group B Streptococcus Laterality: bilateral Lung location: upper lobe of lung Qualified Code(s): J15.3 - Pneumonia due to streptococcus, group B Is this a current diagnosis for this admission?: Yes Plan: With bacteremia, but may have been contaminant, plan DC home today with oral antibiotics, will discuss with hospitalist team (2) Pneumonitis Is this a current diagnosis for this admission?: Yes Plan: Plan for steroid taper, discussed with hospitalist team (3) Pancytopenia Is this a current diagnosis for this admission?: Yes Plan: Improved will follow as an outpatient - Time Time Spent with patient: 15-24 minutes
[2019-09-13] MEDS ORDERED: CALCITRIOL 0.25 MCG CAPSULE PO SCH (10:00)
[2019-09-13] MEDS ORDERED: SODIUM BICARBONATE 650 MG TABLET PO SCH (10:00)
[2019-09-13] MEDS ORDERED: (PENDING PHARMACY ID) (Calcitriol [Calcitriol] 0.5 MCG) PO SCH (10:00)
[2019-09-13] MEDS: AMLODIPINE BESYLATE 10 MG TABLET PO SCH (10:27)
[2019-09-13] MEDS: CEFTRIAXONE 1 GM/D5W RTU 1 GM/50 ML RTUPB IV SCH (10:27)
[2019-09-13 15:41] VITALS: BP 119/66
[2019-09-13] MEDS: AZITHROMYCIN 500 MG in DEXTROSE 5%-WATER 250 ML IV SCH (17:22)
--- NOTE | 2019-09-16 18:23 | PDOC DISCHARGE SUMMARY ---
Impression - Admit/DC Date/PCP Admission Date/Primary Care Provider: 09/09/19 17:56 LISSETTE CROCKETT NP Discharge Date: 09/13/19 - Discharge Diagnosis (1) Hypertension Is this a current diagnosis for this admission?: Yes (2) Kidney disease, chronic, stage IV (GFR 15-29 ml/min) Is this a current diagnosis for this admission?: Yes (3) Pleural effusion Is this a current diagnosis for this admission?: Yes (4) Pneumonitis Is this a current diagnosis for this admission?: Yes (5) Positive blood culture Is this a current diagnosis for this admission?: Yes - Additional Information Resuscitation Status: Full Code Discharge Diet: Cardiac Discharge Activity: Activity As Tolerated, Balance Activity w/Rest, Slowly Increase Activity Referrals: BALA KWAN MD [ACTIVE STAFF] - 09/15/19 1:00 pm (PATIENT WILL NEED A LITER OF FLUID ON 09/15 AND 09/15 AT 1PM) Prescriptions: Azithromycin 250 mg PO DAILY #4 tablet Prednisone [Deltasone 20 mg Tablet] 20 mg PO ASDIR PRN #25 tablet PRN Reason: Hydrocodone Bit/Homatropine [Hycodan 5-1.5 mg Tablet] 1 tab PO Q6HP PRN #12 tablet PRN Reason: Hydrocodone Bit/Homatropine [Hycodan Syrup 5-1.5 mg/5 ml Ud Cup] 5 ml PO Q4HP PRN #120 ml PRN Reason: Amlodipine Besylate [Norvasc 10 mg Tablet] 10 mg PO DAILY #30 tablet Home Medications: Calcitriol 0.5 mcg PO DAILY 09/09/19 Sodium Bicarbonate [Sodium Bicarbonate 650 mg Tablet] 650 mg PO DAILY 09/09/19 Acetaminophen [Tylenol 325 mg Tablet] 650 mg NG Q8HP PRN tablet 09/13/19 Amlodipine Besylate [Norvasc 10 mg Tablet] 10 mg PO DAILY #30 tablet 09/13/19 Azithromycin 250 mg PO DAILY #4 tablet 09/13/19 Hydrocodone Bit/Homatropine [Hycodan 5-1.5 mg Tablet] 1 tab PO Q6HP PRN #12 tablet 09/13/19 Prednisone [Deltasone 20 mg Tablet] 20 mg PO ASDIR PRN #25 tablet 09/13/19 Hydrocodone Bit/Homatropine [Hycodan Syrup 5-1.5 mg/5 ml Ud Cup] 5 ml PO Q4HP PRN #120 ml 09/16/19 History of Present Illiness History of Present Illness: Per H&P by Dr. Lopez: JIHAN MORA is a 64 year old female with a previous history of a renal cell carcinoma status post left nephrectomy who subsequently developed a right lower lobe lung cancer and who has had a partial lobectomy and tried chemotherapy but was unable to tolerate it so she is just been getting radiation to that area. She is developed a cough that is been getting progressively worse over the past few days. She is not had a fever. The cough has not been productive. She is not coughed up any blood. She went to her oncologist office today for some hydration as she does from time to time, and when he heard her coughing he had her come to the ER. She has a chronic pleural effusion which showed up on CT, there was also some mild amount of edema. Due to concern for possible pneumonia she is being admitted. Is not hypoxic. Hospital Course Hospital Course: (1) Pneumonitis Received a 3-day course of empiric antibiotics; no continued antibiotics required at time of discharge. She responded well to IV Solu-Medrol; she is discharged home on a prolonged prednisone taper. She is advised to follow-up with her oncologist as scheduled. (2) Hypertension Well-controlled on home dose amlodipine. (3) Pleural effusion Chronic and stable (4) Kidney disease, chronic, stage IV (GFR 15-29 ml/min) Present on admission, and stable within her typical range. Medications were dosed accordingly. (5) Positive blood culture Ruled out as contamination. Follow up cultures yielded a different CoNS (1st set Staph hominins, 2nd set Staph epi). At time of discharge, patient was hemodynamically stable, maintaining oxygen saturations while ambulatory on room air, asymptomatic, and requesting to discharge to home. She is discharged home into the care of family members. She is advised to follow-up with her primary care provider within [address] Kwan as scheduled. Physical Exam Vital Signs: Temp Pulse Resp BP Pulse Ox 97.5 F 70 16 119/66 100 09/13/19 17:04 09/13/19 17:04 09/13/19 17:04 09/13/19 17:04 09/13/19 17:04 General appearance: PRESENT: no acute distress, cooperative, thin, well- developed, well-nourished Head exam: PRESENT: atraumatic, normocephalic Eye exam: PRESENT: conjunctiva pink, EOMI, PERRLA. ABSENT: scleral icterus Ear exam: PRESENT: normal external ear exam Mouth exam: PRESENT: moist, tongue midline Respiratory exam: PRESENT: clear to auscultation marianna, symmetrical, unlabored. ABSENT: rales, rhonchi, wheezes Cardiovascular exam: PRESENT: RRR, +S1, +S2. ABSENT: diastolic murmur, rubs, systolic murmur Pulses: PRESENT: normal dorsalis pedis pul Vascular exam: PRESENT: normal capillary refill GI/Abdominal exam: PRESENT: normal bowel sounds, soft. ABSENT: distended, guarding, mass, organolmegaly, rebound, tenderness Rectal exam: PRESENT: deferred Extremities exam: PRESENT: full ROM. ABSENT: calf tenderness, clubbing, pedal edema Musculoskeletal exam: PRESENT: ambulatory Neurological exam: PRESENT: alert, awake, oriented to person, oriented to place, oriented to time, oriented to situation, CN II-XII grossly intact. ABSENT: motor sensory deficit Psychiatric exam: PRESENT: appropriate affect, normal mood. ABSENT: homicidal ideation, suicidal ideation Skin exam: PRESENT: dry, intact, warm. ABSENT: cyanosis, rash Results Laboratory Results: WBC 6.8 10^3/uL (4.0-10.5) 09/12/19 06:00 RBC 2.89 10^6/uL (3.72-5.28) L 09/12/19 06:00 Hgb 8.6 g/dL (12.0-15.5) L 09/12/19 06:00 Hct 26.1 % (36.0-47.0) L 09/12/19 06:00 MCV 90 fl (80-97) 09/12/19 06:00 MCH 30.0 pg (27.0-33.4) 09/12/19 06:00 MCHC 33.1 g/dL (32.0-36.0) 09/12/19 06:00 RDW 17.3 % (11.5-14.0) H 09/12/19 06:00 Plt Count 125 10^3/uL (150-450) L 09/12/19 06:00 Lymph % (Auto) 21.8 % (13-45) 09/09/19 15:19 [place] % (Auto) 10.4 % (3-13) 09/09/19 15:19 Eos % (Auto) 0.0 % (0-6) 09/09/19 15:19 Baso % (Auto) 0.5 % (0-2) 09/09/19 15:19 Absolute Neuts (auto) 1.4 10^3/uL (1.7-8.2) L 09/09/19 15:19 Absolute Lymphs (auto) 0.5 10^3/uL (0.5-4.7) 09/09/19 15:19 Absolute Monos (auto) 0.2 10^3/uL (0.1-1.4) 09/09/19 15:19 Absolute Eos (auto) 0.0 10^3/uL (0.0-0.6) 09/09/19 15:19 Absolute Basos (auto) 0.0 10^3/uL (0.0-0.2) 09/09/19 15:19 Seg Neutrophils % 67.3 % (42-78) 09/09/19 15:19 Sodium 142.7 mmol/L (137-145) 09/12/19 06:00 Potassium 4.6 mmol/L (3.6-5.0) 09/12/19 06:00 Chloride 114 mmol/L (98-107) H 09/12/19 06:00 Carbon Dioxide 19 mmol/L (22-30) L 09/12/19 06:00 Anion Gap 10 (5-19) 09/12/19 06:00 BUN 42 mg/dL (7-20) H 09/12/19 06:00 Creatinine 2.29 mg/dL (0.52-1.25) H 09/12/19 06:00 Est GFR ( Amer) 26 (>60) L 09/12/19 06:00 Est GFR (MDRD) Non-Af 22 (>60) L 09/12/19 06:00 Glucose 142 mg/dL (75-110) H 09/12/19 06:00 Lactic Acid 1.6 mmol/L (0.7-2.1) 09/09/19 15:19 Calcium 8.8 mg/dL (8.4-10.2) 09/12/19 06:00 Total Bilirubin 0.3 mg/dL (0.2-1.3) 09/09/19 15:19 Direct Bilirubin 0.3 mg/dL (0.0-0.4) 09/09/19 15:19 Neonat Total Bilirubin Not Reportable 09/09/19 15:19 Neonat Direct Bilirubin Not Reportable 09/09/19 15:19 Neonat Indirect Bili Not Reportable 09/09/19 15:19 AST 19 U/L (14-36) 09/09/19 15:19 ALT 10 U/L (<35) 09/09/19 15:19 Alkaline Phosphatase 76 U/L (38-126) 09/09/19 15:19 Troponin I < 0.012 ng/mL 09/09/19 15:19 Total Protein 6.7 g/dL (6.3-8.2) 09/09/19 15:19 Albumin 3.2 g/dL (3.5-5.0) L 09/09/19 15:19 Slides for Path Review PATHOLOGIST REVIEWED 09/10/19 05:45 09/09/19 15:19 Troponin I < 0.012 Impressions: Chest X-Ray 09/09/19 13:39 IMPRESSION: Stable postsurgical changes in the right hemithorax. No evidence of acute process. Chest CT 09/09/19 16:25 IMPRESSION: 1. Mild centrilobular ground-glass opacities within the right lower lobe suggestive of pneumonia. 2. Postoperative changes within the right hemithorax with mild to moderate chronic right-sided pleural effusion, mildly increased from prior. 3. Additional postsurgical changes within the right hilum with persistent asymmetric right hilar soft tissue, possibly postoperative although underlying disease is not entirely excluded on this noncontrast exam. Recommend attention on follow-up. Plan Plan of Treatment: Patient is discharged home in stable condition. She is advised follow-up with her primary care provider within 1 week. She should follow-up with Dr. Kwan as scheduled. Take medications as prescribed. Return to the emergency department as needed for concerning symptoms. Time Spent: Greater than 30 Minutes Stroke Is this a Stroke Patient?: No Acute Heart Failure - Is this a Heart Failure Patient?: No
== END 2019-09-13 17:35 | disposition home or self-care (01) | DRG 194 ==
LOC: ER 13:14 → EH 17:56 → 4S 21:33
PROVIDERS: ADMIT Family Medicine; ATTEND Family Medicine
DX: J15.3 Pneumonia due to streptococcus, group B (principal); D61.818 Other pancytopenia; N18.4 Chronic kidney disease, stage 4 (severe); C34.31 Malignant neoplasm of lower lobe, right bronchus or lung; J70.0 Acute pulmonary manifestations due to radiation; I12.9 Hypertensive chronic kidney disease with stage 1 through stage 4 chronic kidney disease, or unspecified chronic kidney disease; I25.10 Atherosclerotic heart disease of native coronary artery without angina pectoris; E78.5 Hyperlipidemia, unspecified; K21.9 Gastro-esophageal reflux disease without esophagitis; F17.210 Nicotine dependence, cigarettes, uncomplicated; M10.9 Gout, unspecified; E78.00 Pure hypercholesterolemia, unspecified; I25.2 Old myocardial infarction; Z79.899 Other long term (current) drug therapy; Z79.891 Long term (current) use of opiate analgesic; Z85.528 Personal history of other malignant neoplasm of kidney; Z90.5 Acquired absence of kidney; Z92.21 Personal history of antineoplastic chemotherapy; Z90.2 Acquired absence of lung [part of]; Z88.6 Allergy status to analgesic agent; Z88.3 Allergy status to other anti-infective agents; Z88.2 Allergy status to sulfonamides; Z86.73 Personal history of transient ischemic attack (TIA), and cerebral infarction without residual deficits
CPT/HCPCS: 36415; 36591; 71046; 71250; 80048; 80053; 83605; 84484; 85025; 85027; 87040; 87070; 87077; 87150; 87186; 87205; 93005; 93010; 99285; J0456; J0696; J1642; J1644; J2920; J7060

== ENCOUNTER 2019-10-06 18:56 | Emergency (ER) | payer MEDICARE, MEDICAID ==
--- NOTE | 2019-10-06 19:38 | ER Document Report ---
ED Medical Screen (RME) - General Stated Complaint: CHEST PAIN Time Seen by Provider: 10/06/19 19:19 Primary Care Provider: LISSETTE CROCKETT NP [Primary Care Provider] - Follow up as needed TRAVEL OUTSIDE OF THE [place] IN LAST 30 DAYS: No - HPI Notes: 10/06/19 19:36 64-year-old female with a history of lung cancer [facility] stroke presents emergency room for 3 days of chest pain and shortness of breath that is become progressively worse. Patient states she recently finished radiation for lung cancer and had 2 tumors resected in her right upper lung. States she started with substernal chest pain 3 days ago, denies radiation to jaw shoulder back. Reports she also has concurrent shortness of breath and has been coughing up yellow thick phlegm. Decreased eating but drinking without issues. Patient denies any stents, is not on any blood thinners from her heart attack in 2013 and stroke in 2015. She does follow with Dr. Marshall's group. Patient does not take baby aspirin due to allergy. Patient is a non-smoker. I have greeted and performed a rapid initial assessment of this patient. A comprehensive ED assessment and evaluation of the patient, analysis of test results and completion of the medical decision making process will be conducted by additional ED providers. PHYSICAL EXAMINATION: GENERAL: Well-appearing, well-nourished and in no acute distress. CV: s1, s2 regular LUNGS: No respiratory distress Musculoskeletal: Normal range of motion NEUROLOGICAL: Normal speech, normal gait. SKIN: Warm, Dry, normal turgor, no rashes or lesions noted. - Related Data Allergies/Adverse Reactions: sulfamethoxazole [From Bactrim] Allergy (Verified 09/09/19 13:36) trimethoprim [From Bactrim] Allergy (Verified 09/09/19 13:36) aspirin [Aspirin] Adverse Reaction (Verified 09/09/19 13:36) Past Medical History - Social History Family history: Reviewed & Not Pertinent - Past Medical History Cardiac Medical History: Reports: Hx Congestive Heart Failure, Hx Coronary Artery Disease, Hx Heart Attack - 2013, Hx Hypercholesterolemia, Hx Hypertension Pulmonary Medical History: Reports: Hx Bronchitis Denies: Hx Asthma, Hx COPD, Hx Pneumonia, Hx Tuberculosis Neurological Medical History: Reports: Hx Cerebrovascular Accident - stroke 03/2014 while unresponsive following abd surgical complication. Denies: Hx Seizures Renal/ Medical History: Reports: Hx End Stage Renal Disease - kidney cancer, Hx Renal Insufficiency. Denies: Hx Peritoneal Dialysis Malignancy Medical History: Reports: Hx Lung Cancer - Right upper partial lobectomy 11/09/2018., Hx Pancreatic Cancer - Mass to tail pancreas, July 2015. Did not light up on PET scan., Hx Renal (Kidney) Cancer - Cell carcinoma with left nephrectomy 2007. GI Medical History: Reports: Hx Gastritis, Hx Gastroesophageal Reflux Disease Musculoskeltal Medical History: Reports Hx Arthritis - Right hip DJD., Reports Hx Gout - Tentative diagnosis of gout. Psychiatric Medical History: Denies: Hx Depression Past Surgical History: Reports: Hx Abdominal Surgery - HERNIA, PERFORATED BOWEL, Hx Cholecystectomy, Hx Herniorrhaphy - Umbilical hernia repair complicated by bowel perforation, Hx Kidney (Renal Surgery) - Left nephrectomy for renal cell carcinoma, Hx Vascular Surgery - Port placed in right upper arm 01/19/2019. Retinal detachment treated in , Other - EGD to evaluate pancreatic mass. Right upper partial lobectomy 11/09/2018.. Denies: Hx Hysterectomy - Immunizations Hx Diphtheria, Pertussis, Tetanus Vaccination: No Physical Exam - Vital signs Vitals: Temp Pulse Resp BP Pulse Ox 98.2 F 94 22 H 152/98 H 100 10/06/19 19:11 10/06/19 19:11 10/06/19 19:11 10/06/19 19:11 10/06/19 19:11 Course - Vital Signs Vital signs: Temp Pulse Resp BP Pulse Ox 98.2 F 94 22 H 152/98 H 100 10/06/19 19:11 10/06/19 19:11 10/06/19 19:11 10/06/19 19:11 10/06/19 19:11 Doctor's Discharge - Discharge Referrals: LISSETTE CROCKETT NP [Primary Care Provider] - Follow up as needed
--- NOTE | 2019-10-06 19:56 | RADIOLOGY REPORT (SQ) ---
EXAM DESCRIPTION: CHEST 2 VIEWS COMPLETED DATE/TIME: 10/06/2019 7:41 pm REASON FOR STUDY: cp and sob COMPARISON: 09/09/2019 TECHNIQUE: Frontal and lateral radiographic views of the chest acquired. NUMBER OF VIEWS: Two view. LIMITATIONS: None. FINDINGS: LUNGS AND PLEURA: Chronic scarring and tenting of the right hemidiaphragm. Stable appeara nce of the lungs. No developing opacities. MEDIASTINUM AND HILAR STRUCTURES: No masses or contour abnormalities. HEART AND VASCULAR STRUCTURES: Heart normal size. No evidence for failure. BONES: No acute findings. HARDWARE: Right port. OTHER: No other significant finding. IMPRESSION: Stable chest with chronic findings. No acute or suspicious cardiopulmonary disease. TECHNICAL DOCUMENTATION: JOB ID: [id number] 2010 [employer]- All Rights Reserved Reading location - IP/workstation name: [email or web address]
[2019-10-06 23:16] LABS: HEMATOCRIT 24.8 % (36.0-47.0); HEMOGLOBIN 8.3 g/dL (12.0-15.5); MEAN CORPUSCULAR HEMOGLOBIN 31.3 pg (27.0-33.4); MEAN CORPUSCULAR HGB CONC 33.5 g/dL (32.0-36.0); MEAN CORPUSCULAR VOLUME 93 fl (80-97); PLATELET COUNT 114 10^3/uL (150-450); RED BLOOD COUNT 2.66 10^6/uL (3.72-5.28); RED CELL DISTRIBUTION WIDTH 18.9 % (11.5-14.0); WHITE BLOOD COUNT 2.2 10^3/uL (4.0-10.5)
[2019-10-06 23:34] LABS: ALBUMIN 2.9 g/dL (3.5-5.0); ALKALINE PHOSPHATASE 84 U/L (38-126); ANION GAP 7 (5-19); ASPARTATE AMINO TRANSFERASE 17 U/L (14-36); BILIRUBIN,DIRECT 0.3 mg/dL (0.0-0.4); BILIRUBIN,TOTAL 0.3 mg/dL (0.2-1.3); BLOOD UREA NITROGEN 42 mg/dL (7-20); CALCIUM 8.6 mg/dL (8.4-10.2); CARBON DIOXIDE 23 mmol/L (22-30); CHLORIDE 110 mmol/L (98-107); GLUCOSE 103 mg/dL (75-110); POTASSIUM 4.2 mmol/L (3.6-5.0); TOTAL PROTEIN 5.8 g/dL (6.3-8.2)
[2019-10-06 23:45] LABS: CREATINE KINASE < 20 U/L (30-135)
[2019-10-06 23:47] LABS: TROPONIN I < 0.012 ng/mL
[2019-10-06 23:50] LABS: ABSOLUTE LYMPHOCYTES# (MANUAL) 0.3 10^3/uL (0.5-4.7); ABSOLUTE MONOCYTES # (MANUAL) 0.1 10^3/uL (0.1-1.4); BAND NEUTROPHILS % (MANUAL) 4 % (3-5); BASOPHILS % (MANUAL) 1 % (0-2); EOSINOPHILS % (MANUAL) 0 % (0-6); LYMPHOCYTES % (MANUAL) 13 % (13-45); MONOCYTES % (MANUAL) 4 % (3-13); SEGMENTED NEUTROPHILS % (MAN) 78 % (42-78); TOTAL CELLS COUNTED 100
[2019-10-06 23:52] LABS: ANISOCYTOSIS 2+; OVALOCYTES 1+; PLATELET COMMENT DECREASED; TEAR DROP CELLS SLIGHT
[2019-10-07] MEDS ORDERED: ONDANSETRON HCL INJ/PF 4 MG/2 ML SDV IV ONE (00:52)
[2019-10-07] MEDS ORDERED: NORMAL SALINE 1000 ML 1,000 ML IV ONE (00:52)
[2019-10-07] MEDS ORDERED: MORPHINE SULFATE 10 MG/5 ML ORAL SOLUTION UDCUP PO ONE (00:53)
--- NOTE | 2019-10-07 01:00 | ER Document Report ---
ED General - General Chief Complaint: Chest Pain Stated Complaint: CHEST PAIN Time Seen by Provider: 10/06/19 19:19 Primary Care Provider: LISSETTE CROCKETT NP [Primary Care Provider] - Follow up as needed TRAVEL OUTSIDE OF THE [place] IN LAST 30 DAYS: No - HPI Notes: Ms. Mcgraw is a 64-year-old female with a history of lung CA status post XRT and chemotherapy who has had problems with painful swallowing which is been worse within the last few days. She says she is able to get water and liquids down but cannot really take more chills. She denies any vomiting. She denies any f ever or shortness of breath. Patient was seen in the oncology clinic 2 days ago and was started on Magic mouthwash. She says in the past this is been very helpful but this time is not doing much to relieve her symptoms. - Related Data Allergies/Adverse Reactions: sulfamethoxazole [From Bactrim] Allergy (Verified 09/09/19 13:36) trimethoprim [From Bactrim] Allergy (Verified 09/09/19 13:36) aspirin [Aspirin] Adverse Reaction (Verified 09/09/19 13:36) Past Medical History - General Information source: Patient, Friend - Social History Smoking Status: Unknown if Ever Smoked Family History: Reviewed & Not Pertinent, CAD, Hypertension Patient has suicidal ideation: No Patient has homicidal ideation: No - Past Medical History Cardiac Medical History: Reports: Hx Congestive Heart Failure, Hx Coronary Artery Disease, Hx Heart Attack - 2013, Hx Hypercholesterolemia, Hx Hypertension Pulmonary Medical History: Reports: Hx Bronchitis Denies: Hx Asthma, Hx COPD, Hx Pneumonia, Hx Tuberculosis Neurological Medical History: Reports: Hx Cerebrovascular Accident - stroke 03/2014 while unresponsive following abd surgical complication. Denies: Hx Seizures Renal/ Medical History: Reports: Hx End Stage Renal Disease - kidney cancer, Hx Renal Insufficiency. Denies: Hx Peritoneal Dialysis Malignancy Medical History: Reports: Hx Lung Cancer - Right upper partial lobectomy 11/09/2018., Hx Pancreatic Cancer - Mass to tail pancreas, July 2015. Did not light up on PET scan., Hx Renal (Kidney) Cancer - Cell carcinoma with left nephrectomy 2007. GI Medical History: Reports: Hx Gastritis, Hx Gastroesophageal Reflux Disease Musculoskeletal Medical History: Reports Hx Arthritis - Right hip DJD., Reports Hx Gout - Tentative diagnosis of gout. Psychiatric Medical History: Denies: Hx Depression Past Surgical History: Reports: Hx Abdominal Surgery - HERNIA, PERFORATED BOWEL, Hx Cholecystectomy, Hx Herniorrhaphy - Umbilical hernia repair complicated by bowel perforation, Hx Kidney (Renal Surgery) - Left nephrectomy for renal cell carcinoma, Hx Vascular Surgery - Port placed in right upper arm 01/19/2019. Retinal detachment treated in 20, Other - EGD to evaluate pancreatic mass. Right upper partial lobectomy 11/09/2018.. Denies: Hx Hysterectomy - Immunizations Hx Diphtheria, Pertussis, Tetanus Vaccination: No Hx Pneumococcal Vaccination: 08/03/10 Review of Systems - Review of Systems Notes: Constitutional: Negative for fever. HENT: As per HPI. Eyes: Negative for visual changes. Cardiovascular: As per HPI. Respiratory: As per HPI. Gastrointestinal: As per HPI. Genitourinary: Negative for dysuria. Musculoskeletal: Negative for back pain. Skin: Negative for rash. Neurological: Negative for headaches, weakness or numbness. 10 point ROS negative except as marked above and in HPI. Physical Exam - Vital signs Vitals: Temp Pulse Resp BP Pulse Ox 98.2 F 94 22 H 152/98 H 100 10/06/19 19:11 10/06/19 19:11 10/06/19 19:11 10/06/19 19:11 10/06/19 19:11 - Notes Notes: GENERAL: Chronically ill-appearing female of approximately stated age. Appears moderately uncomfortable. SKIN: Good turgor no rashes. HEAD: Normocephalic atraumatic. EYES: PERRLA. EOMI. Conjunctivae and sclerae clear. EARS: CANALS AND TMS CLEAR. NOSE: CLEAR. MOUTH: Moist mucosa. Good dentition. No stridor or edema. No drooling. Throat: Handling secretions normally. Slightly hoarse. NECK: Supple. No masses or thyromegaly. No adenopathy. Carotids 2+ without bruits. No JVD. BACK: Symmetrical without tenderness. CHEST: Port-A-Cath present on right. Respirations unlabored. Breath sounds clear and symmetrical. HEART: Regular rhythm. No murmur gallop or rub. ABDOMEN: Soft nontender without masses, organomegaly or rebound. Bowel sounds normally active. No bruits. GENITALIA: Deferred. EXTREMITIES: No edema. No calf tenderness. Cap refill less than 1.5 seconds. Dorsalis pedis and posterior tibial pulses 3+ and symmetrical. NEUROLOGICAL: GCS 15. Alert and oriented x3. Normal gait. Fluent speech. Cranial nerves II through XII intact. Sensorimotor and cerebellar normal. Normal tone. PSYCHIATRIC: Appropriate affect. Course - Re-evaluation Re-evalutation: 10/07/19 01:05 Case was reviewed in detail with the on-call oncologist Dr. Ni. She recommends that we hydrate patient intravenously and give her a trial some oral morphine. If she does well with this tonight we can send her home and have her follow-up in the clinic tomorrow morning for evaluation for additional IV fluids if necessary. Patient was also offered the option of overnight hospitalization for hydration but she prefers to go home at this time. 10/07/19 02:31 Symptomatically improved following oral morphine and IV normal saline. Patient will go home tonight and follow-up with oncology clinic tomorrow morning for additional IV fluids. - Vital Signs Vital signs: Temp Pulse Resp BP Pulse Ox 98.8 F 94 17 150/91 H 100 10/07/19 00:12 10/06/19 19:11 10/07/19 00:01 10/07/19 00:00 10/07/19 00:01 - Laboratory Result Diagrams: 10/06/19 23:08 10/06/19 23:08 Laboratory results interpreted by me: 10/06/19 10/06/19 10/06/19 23:08 23:08 23:08 WBC 2.2 L RBC 2.66 L Hgb 8.3 L Hct 24.8 L RDW 18.9 H Plt Count 114 L Abs Lymphs (Manual) 0.3 L Chloride 110 H BUN 42 H Creatinine 2.09 H Est GFR ( Amer) 29 L Est GFR (MDRD) Non-Af 24 L Creatine Kinase < 20 L Total Protein 5.8 L Albumin 2.9 L TSH 5.29 H - Diagnostic Test Radiology reviewed: Reports reviewed - Right-sided Port-A-Cath with no acute findings on the chest film per radiologist. Discharge - Discharge Clinical Impression: Radiation-induced esophagitis, Chronic renal insufficiency, stage III (moderate), Anemia, chronic disease Condition: Stable Disposition: HOME, SELF-CARE Instructions: Esophagitis ([facility]) Additional Instructions: Contact oncology clinic tomorrow morning for additional IV fluids if needed. Take prescribed medication as needed. Return here as needed for new or worsening symptoms: Pain that is worsening or unimproved Uncontrolled vomiting High fever or shaking chills Overall worsening Prescriptions: Morphine Sulfate [Morphine Oral Soln 10 Mg/5 Ml Udcup] 10 mg PO Q6H 5 Days udc Morphine Sulfate [Morphine Oral Soln 10 Mg/5 Ml Udcup] 10 mg PO Q6H 5 Days #20 udc Referrals: LISSETTE CROCKETT FIELD EDUCATION COORDINATOR [Primary Care Provider] - Follow up as needed
[2019-10-07 02:38] VITALS: BP 152/79
--- NOTE | 2019-10-07 07:46 | EKG REPORT ---
SEVERITY:- BORDERLINE ECG - SINUS RHYTHM CONSIDER ANTERIOR INFARCT VS LEAD PLACEMENT : Confirmed by: Pascual Rosenthal MD 07-Oct-2019 07:45:39
== END 2019-10-07 03:11 | disposition home or self-care (01) ==
LOC: ER 18:56
DX: T66.XXXA Radiation sickness, unspecified, initial encounter (principal); K20.8 Other esophagitis; Y84.2 Radiological procedure and radiotherapy as the cause of abnormal reaction of the patient, or of later complication, without mention of misadventure at the time of the procedure; I12.9 Hypertensive chronic kidney disease with stage 1 through stage 4 chronic kidney disease, or unspecified chronic kidney disease; N18.3 Chronic kidney disease, stage 3 (moderate); D63.1 Anemia in chronic kidney disease; I25.10 Atherosclerotic heart disease of native coronary artery without angina pectoris; Z90.5 Acquired absence of kidney; Z85.118 Personal history of other malignant neoplasm of bronchus and lung; Z85.07 Personal history of malignant neoplasm of pancreas; Z85.528 Personal history of other malignant neoplasm of kidney; Z92.21 Personal history of antineoplastic chemotherapy; Z88.1 Allergy status to other antibiotic agents
CPT/HCPCS: 93005; 36591; 99285; 96361; 96374; 36415; 82553; 82550; 84443; 85025; 80053; 84484; 71046; 93010; J2405; J7030; A9270; J1642

== ENCOUNTER → 2019-10-17 | Outpatient (CLI) | payer MEDICARE, MEDICAID ==
[2019-10-17 10:58] LABS: HEMATOCRIT 30.3 % (36.0-47.0); HEMOGLOBIN 9.8 g/dL (12.0-15.5); MEAN CORPUSCULAR HEMOGLOBIN 30.1 pg (27.0-33.4); MEAN CORPUSCULAR HGB CONC 32.2 g/dL (32.0-36.0); MEAN CORPUSCULAR VOLUME 93 fl (80-97); RED BLOOD COUNT 3.25 10^6/uL (3.72-5.28); RED CELL DISTRIBUTION WIDTH 17.6 % (11.5-14.0); WHITE BLOOD COUNT 1.9 10^3/uL (4.0-10.5)
[2019-10-17 11:15] LABS: ALBUMIN 3.3 g/dL (3.5-5.0); ANION GAP 10 (5-19); BLOOD UREA NITROGEN 29 mg/dL (7-20); CARBON DIOXIDE 21 mmol/L (22-30); CHLORIDE 111 mmol/L (98-107); GLUCOSE 121 mg/dL (75-110); PHOSPHORUS 4.3 mg/dL (2.5-4.5); POTASSIUM 4.9 mmol/L (3.6-5.0); URIC ACID 9.2 mg/dL (2.5-7.5)
[2019-10-17 12:09] LABS: PLATELET COUNT 84 10^3/uL (150-450)
[2019-10-17 12:11] LABS: ABSOLUTE LYMPHOCYTES# (MANUAL) 0.3 10^3/uL (0.5-4.7); ABSOLUTE MONOCYTES # (MANUAL) 0.4 10^3/uL (0.1-1.4); BAND NEUTROPHILS % (MANUAL) 2 % (3-5); BASOPHILS % (MANUAL) 0 % (0-2); EOSINOPHILS % (MANUAL) 4 % (0-6); LYMPHOCYTES % (MANUAL) 16 % (13-45); MONOCYTES % (MANUAL) 22 % (3-13); SEGMENTED NEUTROPHILS % (MAN) 56 % (42-78); TOTAL CELLS COUNTED 50
[2019-10-17 12:13] LABS: ANISOCYTOSIS 1+; PLATELET COMMENT DECREASED; POIKILOCYTOSIS SLIGHT; POLYCHROMASIA SLIGHT; TEAR DROP CELLS SLIGHT
[2019-10-17 17:39] LABS: APPEARANCE,URINE SLIGHTLY-CLOUDY; BILIRUBIN,URINE NEGATIVE (NEGATIVE); COLOR,URINE YELLOW; GLUCOSE, URINE NEGATIVE (NEGATIVE); KETONES,URINE NEGATIVE (NEGATIVE); LEUKOCYTE ESTERASE,URINE NEGATIVE (NEGATIVE); NITRITE,URINE NEGATIVE (NEGATIVE); PROTEIN,URINE 100 mg/dL (NEGATIVE); URINE SPECIFIC GRAVITY 1.016; UROBILINOGEN,URINE NEGATIVE mg/dL (<2.0)
[2019-10-17 17:54] LABS: UR PRO/CREAT RATIO RESULT 1.1 mg/mg (0.0-0.2); URINE CREATININE 147.8 mg/dL (15-278); URINE PROTEIN 162.9 mg/dL (<12)
[2019-10-18 10:51] LABS: PATH REVIEW PATHOLOGIST REVIEWED
== END ==
LOC: OD 10:10
PROVIDERS: ATTEND Internal Medicine Nephrology
DX: I12.9 Hypertensive chronic kidney disease with stage 1 through stage 4 chronic kidney disease, or unspecified chronic kidney disease (principal); N18.3 Chronic kidney disease, stage 3 (moderate); E87.2 Acidosis; E55.9 Vitamin D deficiency, unspecified; N25.81 Secondary hyperparathyroidism of renal origin
CPT/HCPCS: 36415; 80069; 81001; 82306; 82570; 83970; 84156; 84550; 85025

== ENCOUNTER → 2019-11-15 | Outpatient (CLI) | payer MEDICARE, MEDICAID ==
--- NOTE | 2019-11-15 14:41 | RADIOLOGY REPORT (SQ) ---
EXAM DESCRIPTION: PET CT SKULL/THIGH IMAGES COMPLETED DATE/TIME: 11/15/2019 1:56 pm REASON FOR STUDY: LUNG CA (C34.11) C34.11 MALIGNANT NEOPLASM OF UPPER LOBE, RIGHT BRONCHUS OR L COMPARISON: Chest CT dated 09/09/2019, prior PET-CT 05/15/2019 RADIONUCLIDE AND DOSE: 9.07 mCi F18 FDG The route of agent administration: Intravenous FASTING BLOOD SUGAR: 89 mg/dl CONTRAST TYPE AND DOSE: No CT contrast given. TECHNIQUE: Blood glucose level was verified. Above dose of FDG was injected intravenously. 2-D seg mented attenuation correction images were obtained from the base of the skull to the midthighs. Nonc ontrast CT images were obtained for attenuation correction and fusion with emission images. CT image s were performed without oral or intravenous contrast and are not sensitive for parenchymal lesions. A series of overlapping emission PET images were obtained. Images reviewed and manipulated at [facility] work station by the radiologist. Images stored on PACS. LIMITATIONS: None. FINDINGS: HEAD AND NECK: There is increased metabolic activity in the right thyroid nodule. SUV is measured 4.0. CHEST: No abnormal uptake in the right hilum. Mild increased uptake in the upper left chest is poste rior the thoracic aorta demonstrates an SUV of 3.21. CT images reveal no corresponding abnormality. Suspect this represents misregistration artifact from the descending thoracic aorta. ABDOMEN AND PELVIS: No areas of abnormal metabolic activity in the abdomen or pelvis. Expected physi ologic activity is present in the genitourinary system and bowel. PROXIMAL LOWER EXTREMITIES: No areas of abnormal metabolic activity in the soft tissues of the lower extremities. BONES: No abnormal metabolic activity in the visualized skeleton. ADDITIONAL CT FINDINGS: Persistent right pleural effusion and postsurgical changes in the right hilum . OTHER: No other significant findings. IMPRESSION: Increased metabolic activity in the right lobe of the thyroid gland with an SUV of 4.0. Recommend dedicated thyroid ultrasound and further assessment of the nodule. No other areas of abno rmal activity are identified. TECHNICAL DOCUMENTATION: JOB ID: [id number] 2010 [employer]- All Rights Reserved Reading location - IP/workstation name: [email or web address]
== END ==
LOC: RAD 08:41
PROVIDERS: ATTEND Physician Assistant Medical
DX: C34.11 Malignant neoplasm of upper lobe, right bronchus or lung (principal)
CPT/HCPCS: 78815; A9552

== ENCOUNTER 2019-12-24 15:10 | Emergency (ER) | payer MEDICARE, MEDICAID ==
--- NOTE | 2019-12-24 15:23 | ER Document Report ---
ED General - General Chief Complaint: Chest Pain > 30 Stated Complaint: CHEST PAIN/FEVER/SHORTNESS OF BREATH Primary Care Provider: SHANT FERNANDEZ PA-C [Primary Care Provider] - Follow up as needed Information source: Patient Notes: Patient is a 64-year-old female presented to the emergency department chief c omplaint of chest pain back pain shortness of breath and fever. Patient is a lung and kidney cancer patient. Patient has not had any radiation recently. Patient denies travel history trauma history any obvious sick contacts. Patient states the pain started about a week ago and has progressed to the point now that it hurts to take a moderate to deep breath. TRAVEL OUTSIDE OF THE [place] IN LAST 30 DAYS: No - HPI Onset: Last week Onset/Duration: Persistent, Worse Quality of pain: Throbbing Severity: Moderate Pain Level: 3 Associated symptoms: Nonproductive cough, Fever, Hurts to breath, Nausea, Shortness of breath Exacerbated by: Movement, Walking, Coughing, Deep breathing Relieved by: Denies Similar symptoms previously: Yes Recently seen / treated by doctor: No - Related Data Allergies/Adverse Reactions: sulfamethoxazole [From Bactrim] Allergy (Verified 09/09/19 13:36) trimethoprim [From Bactrim] Allergy (Verified 09/09/19 13:36) aspirin [Aspirin] Adverse Reaction (Verified 09/09/19 13:36) Past Medical History - General Information source: Patient - Social History Smoking Status: Unknown if Ever Smoked Chew tobacco use (# tins/day): No Frequency of alcohol use: None Drug Abuse: None Family History: Reviewed & Not Pertinent, CAD, Hypertension Patient has suicidal ideation: No Patient has homicidal ideation: No - Past Medical History Cardiac Medical History: Reports: Hx Congestive Heart Failure, Hx Coronary Artery Disease, Hx Heart Attack - 2013, Hx Hypercholesterolemia, Hx Hypertension Pulmonary Medical History: Reports: Hx Bronchitis Denies: Hx Asthma, Hx COPD, Hx Pneumonia, Hx Tuberculosis Neurological Medical History: Reports: Hx Cerebrovascular Accident - stroke 03/2014 while unresponsive following abd surgical complication. Denies: Hx Seizures Renal/ Medical History: Reports: Hx End Stage Renal Disease - kidney cancer, Hx Renal Insufficiency. Denies: Hx Peritoneal Dialysis Malignancy Medical History: Reports: Hx Lung Cancer - Right upper partial lobectomy 11/09/2018., Hx Pancreatic Cancer - Mass to tail pancreas, Toni 2 015. Did not light up on PET scan., Hx Renal (Kidney) Cancer - Cell carcinoma with left nephrectomy 2007. GI Medical History: Reports: Hx Gastritis, Hx Gastroesophageal Reflux Disease Musculoskeletal Medical History: Reports Hx Arthritis - Right hip DJD., Reports Hx Gout - Tentative diagnosis of gout. Psychiatric Medical History: Denies: Hx Depression Past Surgical History: Reports: Hx Abdominal Surgery - HERNIA, PERFORATED BOWEL, Hx Cholecystectomy, Hx Herniorrhaphy - Umbilical hernia repair complicated by bowel perforation, Hx Kidney (Renal Surgery) - Left nephrectomy for renal cell carcinoma, Hx Vascular Surgery - Port placed in right upper arm 01/19/2019. Retinal detachment treated in , Other - EGD to evaluate pancreatic mass. Right upper partial lobectomy 11/09/2018.. Denies: Hx Hysterectomy - Immunizations Hx Diphtheria, Pertussis, Tetanus Vaccination: No Hx Pneumococcal Vaccination: 08/03/10 Review of Systems - Review of Systems Notes: REVIEW OF SYSTEMS: CONSTITUTIONAL : Per HPI EENT: Denies eye, ear, throat, or mouth pain or symptoms. Denies nasal or sinus congestion. CARDIOVASCULAR: Per HPI RESPIRATORY: Per HPI GASTROINTESTINAL: Denies abdominal pain. Denies nausea, vomiting, or diarrhea. Denies constipation. GENITOURINARY: Denies difficulty urinating, painful urination, burning, frequency, or blood in urine. MUSCULOSKELETAL: Denies neck or back pain or joint pain or swelling. SKIN: Denies rash or skin lesions. HEMATOLOGIC : Denies easy bruising or bleeding. NEUROLOGICAL: Denies altered mental status or loss of consciousness. Denies headache. Denies weakness or paralysis or loss of use of either side. Denies problems with gait or speech. Denies sensory or motor loss. PSYCHIATRIC: Denies suicidal or homicidal ideations 10 Systems are negative unless otherwise specified above Physical Exam - Vital signs Vitals: Resp Pulse Ox 23 H 98 12/24/19 15:20 12/24/19 15:20 - Notes Notes: PHYSICAL EXAMINATION: GENERAL: Well-appearing, well-nourished however mild to moderate discomfort. HEAD: Atraumatic, normocephalic. EYES: Pupils equal round and reactive to light, extraocular movements intact, sclera anicteric, conjunctiva are normal. ENT: nares patent, oropharynx clear without exudates. Moist mucous membranes. NECK: Normal range of motion, supple without lymphadenopathy, no appreciable JVD LUNGS: Lungs clear to auscultation bilaterally and equal. No wheezes rales or rhonchi. However poor excursion HEART: Tachycardic rate and rhythm without murmurs ABDOMEN: Soft, nontender, normal bowel sounds. No guarding, no rebound. No masses appreciated. EXTREMITIES: Active full range of motion, no pitting or edema. No cyanosis. 2+ pulses x4 NEUROLOGICAL: No focal neurological deficits. Moves all extremities spontaneously and on command. SKIN: Warm, Dry, and intact. Normal turgor, no rashes or lesions noted. Course - Re-evaluation Re-evalutation: 12/24/19 18:44 Patient has been reevaluated several times while in emergency department patient has remained on a monitor technician without signs of decompensation. I discussed the negative laboratory EKG and radiologic results with the patient. At this point I believe the patient is stable for discharge home I see no signs of pneumonia no signs of pleural effusion or any other life-threatening respiratory or cardiac illness. Patient does have renal insufficiency however this is at baseline as is her mild anemia. Patient is agreeable with discharge she has an appointment with her oncologist this coming . Patient is advised to return to the emergency department for worsening symptoms. Patient is stable at this time. - Vital Signs Vital signs: Temp Pulse Resp BP Pulse Ox 102.7 F H 25 H 151/103 H 99 12/24/19 15:29 12/24/19 15:39 12/24/19 15:39 12/24/19 15:39 - Laboratory Result Diagrams: 12/24/19 16:24 12/24/19 16:24 Laboratory results interpreted by me: 12/24/19 12/24/19 12/24/19 16:24 16:24 16:24 RBC 3.27 L Hgb 9.6 L Hct 28.9 L RDW 16.0 H Plt Count 88 L VBG pCO2 33.7 L VBG HCO3 18.4 L Sodium 135.3 L Chloride 108 H Carbon Dioxide 17 L BUN 28 H Creatinine 2.40 H Est GFR ( Amer) 25 L Est GFR (MDRD) Non-Af 20 L Lactic Acid 12/24/19 16:24 RBC Hgb Hct RDW Plt Count VBG pCO2 VBG HCO3 Sodium Chloride Carbon Dioxide BUN Creatinine Est GFR ( Amer) Est GFR (MDRD) Non-Af Lactic Acid 0.6 L - Diagnostic Test Radiology reviewed: Image reviewed, Reports reviewed - EKG Interpretation by Me EKG shows normal: Sinus rhythm Rate: Tachycardia Rhythm: NSR [place]/QRS: Left axis deviation When compared to previous EKG there are: Previous EKG unavailable Discharge - Discharge Clinical Impression: SOB (shortness of breath), Renal insufficiency Condition: Stable Disposition: HOME, SELF-CARE Additional Instructions: SHORTNESS OF BREATH OR DYSPNEA: You were evaluated for shortness of breath, or dyspnea. Dyspnea has many causes, and some are more serious than others. Sometimes it's impossible to diagnose the cause of dyspnea with the tests that are available on an emergency basis. Based on our evaluation today, you do not need hospitalization now. We found no evidence of pneumonia, collapsed lung, blood clots in the lung, tumors, or heart failure. Causes of non-specific dyspnea can include asthma or bronchospasm, hyperventilation, emotional distress, heart disease, emphysema, fibrosis of the lung, and stiffness of the chest wall. In healthy individuals with a single episode, it's sometimes reasonable to do nothing but wait to see if the problem occurs again. Additional tests used to evaluate dyspnea can include cardiac stress testing, echocardiography, pulmonary function testing, CAT scan of the chest, bronchoscopy or pulmonary biopsy. Return if shortness of breath persists or worsens, or if you develop chest pain, fever, cough, confusion, or fainting. NORMAL EXAM AND WORKUP: At this time, your examination and workup show no significant abnormality. No significant abnormal physical findings were noted. All laboratory, EKG, and imaging (x-ray, CT scans, ultrasound) studies that were ordered show no significant abnormality. Although your examination and all studies that were ordered showed no significant abnormal finding, there are no examinations and no studies that are 100% accurate. There is always the possibility that some abnormality could exist and not be detected with physical examination or within the limits and capabilities of laboratory and other studies. You should return or follow up as you were instructed on your visit today for further evaluation if your symptoms do not resolve. FOLLOW-UP CARE: If you have been referred to a physician for follow-up care, call the physicians office for an appointment as you were instructed or within the next two days. If you experience worsening or a significant change in your symptoms, notify the physician immediately or return to the Emergency Department at any time for re-evaluation. Referrals: SHANT FERNANDEZ PA-C [Primary Care Provider] - Follow up as needed
[2019-12-24] MEDS ORDERED: ACETAMINOPHEN 325 MG TABLET PO ONE (15:46)
--- NOTE | 2019-12-24 16:01 | RADIOLOGY REPORT (SQ) ---
EXAM DESCRIPTION: CHEST SINGLE VIEW IMAGES COMPLETED DATE/TIME: 12/24/2019 3:53 pm REASON FOR STUDY: sob COMPARISON: 10/06/2019. EXAM PARAMETERS: NUMBER OF VIEWS: One view. TECHNIQUE: Single frontal radiographic view of the chest acquired. RADIATION DOSE: NA LIMITATIONS: None. FINDINGS: LUNGS AND PLEURA: Stable surgical changes on the right with volume loss No opacities, mass es or pneumothorax. No pleural effusion. MEDIASTINUM AND HILAR STRUCTURES: No masses. Contour normal. HEART AND VASCULAR STRUCTURES: Heart normal in size. Normal vasculature. BONES: No acute findings. HARDWARE: PICC line. OTHER: No other significant finding. IMPRESSION: STABLE SURGICAL CHANGES. NO ACUTE RADIOGRAPHIC FINDING IN THE CHEST. TECHNICAL DOCUMENTATION: JOB ID: [id number] 2010 [employer]- All Rights Reserved Reading location - IP/workstation name: [email or web address]
[2019-12-24 16:42] LABS: VENOUS BLOOD BASE EXCESS -6.4 mmol/L; VENOUS BLOOD HCO3 18.4 mmol/L (20-32); VENOUS BLOOD PCO2 33.7 mmHg (35-63); VENOUS BLOOD PH 7.35 (7.30-7.42)
[2019-12-24 16:49] LABS: INTERNATIONAL RATION (INR) 1.13; PROTHROMBIN TIME 14.6 SEC (11.4-15.4)
[2019-12-24 16:52] LABS: ABSOLUTE LYMPHOCYTES (AUTO) 0.7 10^3/uL (0.5-4.7); ABSOLUTE MONOCYTES (AUTO) 0.4 10^3/uL (0.1-1.4); ABSOLUTE NEUT (AUTO) 2.9 10^3/uL (1.7-8.2); BASOPHILS % (AUTO) 0.4 % (0-2); HEMATOCRIT 28.9 % (36.0-47.0); HEMOGLOBIN 9.6 g/dL (12.0-15.5); LYMPHOCYTES % (AUTO) 17.9 % (13-45); MEAN CORPUSCULAR HEMOGLOBIN 29.5 pg (27.0-33.4); MEAN CORPUSCULAR HGB CONC 33.4 g/dL (32.0-36.0); MEAN CORPUSCULAR VOLUME 88 fl (80-97); MONOCYTES % (AUTO) 9.6 % (3-13); RED BLOOD COUNT 3.27 10^6/uL (3.72-5.28); SEGMENTED NEUTROPHILS % (AUTO) 72.1 % (42-78); TOTAL CELLS COUNTED % (AUTO) 100 %
--- NOTE | 2019-12-24 17:13 | EKG REPORT ---
SEVERITY:- OTHERWISE NORMAL ECG - SINUS TACHYCARDIA LEFT AXIS DEVIATION : Confirmed by: Jada Martinez MD 24-Dec-2019 17:13:22
[2019-12-24 17:14] LABS: ALBUMIN 3.5 g/dL (3.5-5.0); ALKALINE PHOSPHATASE 81 U/L (38-126); ANION GAP 10 (5-19); ASPARTATE AMINO TRANSFERASE 22 U/L (14-36); BILIRUBIN,DIRECT 0.1 mg/dL (0.0-0.4); BILIRUBIN,TOTAL 0.7 mg/dL (0.2-1.3); BLOOD UREA NITROGEN 28 mg/dL (7-20); CALCIUM 8.4 mg/dL (8.4-10.2); CARBON DIOXIDE 17 mmol/L (22-30); CHLORIDE 108 mmol/L (98-107); GLUCOSE 104 mg/dL (75-110); POTASSIUM 3.7 mmol/L (3.6-5.0); TOTAL PROTEIN 7.2 g/dL (6.3-8.2)
[2019-12-24 17:42] LABS: PLATELET COUNT 88 10^3/uL (150-450)
[2019-12-24 18:46] LABS: APPEARANCE,URINE SLIGHTLY-CLOUDY; BILIRUBIN,URINE NEGATIVE (NEGATIVE); COLOR,URINE YELLOW; GLUCOSE, URINE NEGATIVE (NEGATIVE); KETONES,URINE NEGATIVE (NEGATIVE); PROTEIN,URINE 100 mg/dL (NEGATIVE); URINE SPECIFIC GRAVITY 1.014; UROBILINOGEN,URINE NEGATIVE mg/dL (<2.0)
[2019-12-24 19:46] VITALS: BP 128/90
== END 2019-12-24 19:50 | disposition home or self-care (01) ==
LOC: ER 15:10
DX: R06.02 Shortness of breath (principal); N28.9 Disorder of kidney and ureter, unspecified; R07.1 Chest pain on breathing; D64.9 Anemia, unspecified; M54.9 Dorsalgia, unspecified; R50.9 Fever, unspecified; R05 Cough; R11.0 Nausea; R00.0 Tachycardia, unspecified; Z88.1 Allergy status to other antibiotic agents; Z85.528 Personal history of other malignant neoplasm of kidney; Z85.118 Personal history of other malignant neoplasm of bronchus and lung; Z85.07 Personal history of malignant neoplasm of pancreas; Z90.2 Acquired absence of lung [part of]; Z90.5 Acquired absence of kidney; Z82.49 Family history of ischemic heart disease and other diseases of the circulatory system
CPT/HCPCS: 93005; 36591; 99285; 36415; 87040; 83605; 85025; 85610; 80053; 81001; 84484; 82803; 71045; 93010; A9270; J1642

== ENCOUNTER 2019-12-29 11:17 | Emergency (ER) | payer MEDICARE, MEDICAID ==
[2019-12-29] MEDS ORDERED: HYDROCODONE/ACETAMINOPHEN 5-325 MG TABLET PO ONE (12:04)
--- NOTE | 2019-12-29 12:06 | ER Document Report ---
Doctor's Note Notes: 12/29/19 12:04 8-year-old female with a history of shortness of breath is complaining of pain, her registered nurse, CEDRICK Cerna asked if I could prescribe her some pain medication until she is seen by a provider. I consulted with Dr. Eloy MD, the emergency room supervising physician who agreed that I could give her oral pain medication until she is seen by a provider. Vital signs heart rate of 94, blood pressure 154/100.
[2019-12-29 12:09] LABS: ABSOLUTE LYMPHOCYTES (AUTO) 0.7 10^3/uL (0.5-4.7); ABSOLUTE MONOCYTES (AUTO) 0.4 10^3/uL (0.1-1.4); ABSOLUTE NEUT (AUTO) 3.2 10^3/uL (1.7-8.2); BASOPHILS % (AUTO) 0.3 % (0-2); HEMATOCRIT 31.1 % (36.0-47.0); HEMOGLOBIN 10.2 g/dL (12.0-15.5); LYMPHOCYTES % (AUTO) 17.3 % (13-45); MEAN CORPUSCULAR HEMOGLOBIN 28.8 pg (27.0-33.4); MEAN CORPUSCULAR HGB CONC 32.9 g/dL (32.0-36.0); MEAN CORPUSCULAR VOLUME 88 fl (80-97); MONOCYTES % (AUTO) 9.2 % (3-13); PLATELET COUNT 117 10^3/uL (150-450); RED BLOOD COUNT 3.55 10^6/uL (3.72-5.28); RED CELL DISTRIBUTION WIDTH 15.9 % (11.5-14.0); SEGMENTED NEUTROPHILS % (AUTO) 73.2 % (42-78); TOTAL CELLS COUNTED % (AUTO) 100 %; WHITE BLOOD COUNT 4.3 10^3/uL (4.0-10.5)
--- NOTE | 2019-12-29 12:21 | RADIOLOGY REPORT (SQ) ---
EXAM DESCRIPTION: CHEST SINGLE VIEW IMAGES COMPLETED DATE/TIME: 12/29/2019 12:10 pm REASON FOR STUDY: sob COMPARISON: 12/24/2019 EXAM PARAMETERS: NUMBER OF VIEWS: One view. TECHNIQUE: Single frontal radiographic view of the chest acquired. RADIATION DOSE: NA LIMITATIONS: None. FINDINGS: LUNGS AND PLEURA: Chronic elevation the right hemidiaphragm. No infiltrate, effusion, or mass. MEDIASTINUM AND HILAR STRUCTURES: No masses. Contour normal. HEART AND VASCULAR STRUCTURES: Heart normal in size. Normal vasculature. BONES: No acute findings. HARDWARE: Right-sided PICC OTHER: No other significant finding. IMPRESSION: NO ACUTE RADIOGRAPHIC FINDING IN THE CHEST. TECHNICAL DOCUMENTATION: JOB ID: [id number] 2010 [employer]- All Rights Reserved Reading location - IP/workstation name: [email or web address]
[2019-12-29] MEDS ORDERED: MORPHINE SULFATE 10 MG/ML INJ IV ONE (12:28)
[2019-12-29] MEDS ORDERED: ONDANSETRON HCL INJ/PF 4 MG/2 ML SDV IV ONE (12:29)
[2019-12-29 12:35] LABS: ALBUMIN 3.4 g/dL (3.5-5.0); ALKALINE PHOSPHATASE 83 U/L (38-126); ANION GAP 12 (5-19); ASPARTATE AMINO TRANSFERASE 35 U/L (14-36); BILIRUBIN,DIRECT 0.1 mg/dL (0.0-0.4); BILIRUBIN,TOTAL 0.4 mg/dL (0.2-1.3); BLOOD UREA NITROGEN 37 mg/dL (7-20); CALCIUM 8.7 mg/dL (8.4-10.2); CARBON DIOXIDE 17 mmol/L (22-30); CHLORIDE 109 mmol/L (98-107); GLUCOSE 125 mg/dL (75-110); POTASSIUM 3.7 mmol/L (3.6-5.0); TOTAL PROTEIN 6.9 g/dL (6.3-8.2)
[2019-12-29] MEDS ORDERED: NORMAL SALINE 1000 ML 1,000 ML IV ONE (14:11)
--- NOTE | 2019-12-29 15:05 | RADIOLOGY REPORT (SQ) ---
EXAM DESCRIPTION: CT CHEST WITHOUT IMAGES COMPLETED DATE/TIME: 12/29/2019 2:45 pm REASON FOR STUDY: cough/chest pain right sided/lung cancer COMPARISON: 09/09/2019. TECHNIQUE: CT scan performed of the chest without intravenous contrast. Images reviewed with lung, soft tissue and bone windows. Reconstructed coronal and sagittal MPR images reviewed. All images st ored on PACS. All CT scanners at this facility use dose modulation, iterative reconstruction, and/or weight based d osing when appropriate to reduce radiation dose to as low as reasonably achievable (ALARA). [facility]: Dose Right [facility]: CareDose [facility]: Dose Right [facility]: Teradose 4D [facility]: Pictorama RADIATION DOSE: CT Rad equipment meets quality standard of care and radiation dose reduction techniq ues were employed. CTDIvol: 5.6 mGy. DLP: 211 mGy-cm. mGy. LIMITATIONS: No technical limitations. FINDINGS: LUNGS AND PLEURA: Surgical changes. Moderate right pleural effusion, unchanged. A few fa int scattered hazy ground-glass opacities in both upper lobes. HILAR AND MEDIASTINAL STRUCTURES: Mild confluent adenopathy, unchanged. No obvious aneurysm. HEART AND VASCULAR STRUCTURES: No aneurysm. Coronary artery calcifications. No pericardial effusion . UPPER ABDOMEN: No significant findings. Limited exam. THYROID AND OTHER SOFT TISSUES: Nodule in the right lobe of the thyroid, unchanged. No adenopathy. BONES: No significant finding. HARDWARE: PICC line. OTHER: No other significant findings. IMPRESSION: 1. NO CHANGE IN APPEARANCE OF THE CHEST. SURGICAL CHANGES WITH MODERATE RIGHT PLEURAL EFFUSION, UNCH ANGED. A FEW FAINT SCATTERED HAZY GROUND-GLASS OPACITIES IN BOTH LUNGS, NONSPECIFIC. MAY BE DUE TO ATELECTASIS OR PNEUMONITIS. 2. COARSE CALCIFICATIONS IN THE PANCREAS CONSISTENT WITH CHRONIC PANCREATITIS. TECHNICAL DOCUMENTATION: JOB ID: [id number] Quality ID # [id number]: Final reports with documentation of one or more dose reduction techniques (e.g., Au tomated exposure control, adjustment of the mA and/or kV according to patient size, use of iterative reconstruction technique) 2010 [employer]- All Rights Reserved Reading location - IP/workstation name: [email or web address]
--- NOTE | 2019-12-29 18:13 | ER Document Report ---
Entered by CRUZ SORIA SCRIBE 12/29/19 1411 Acting as scribe for:BLAIR COLON MD ED General - General Chief Complaint: Shortness Of Breath Stated Complaint: SHORTNESS OF BREATH Primary Care Provider: LISSETTE CROCKETT NP [Primary Care Provider] - Follow up as needed Mode of Arrival: Ambulatory Information source: Patient Notes: This 71 year old female patient presents to the emergency department today with complaints of a persistent dry cough for the last few days. Patient reports that she has a history of lung cancer and the last thing she know he was "cancer- free" after chemo and radiation. Patient presents today complaining of pain to his right chest wall that radiates to her right shoulder and neck. Patient has morphine and dilaudid at home but she didn't take any of it. TRAVEL OUTSIDE OF THE [place] IN LAST 30 DAYS: No - Related Data Allergies/Adverse Reactions: sulfamethoxazole [From Bactrim] Allergy (Verified 12/29/19 11:47) trimethoprim [From Bactrim] Allergy (Verified 12/29/19 11:47) aspirin [Aspirin] Adverse Reaction (Verified 12/29/19 11:47) Past Medical History - Social History Smoking Status: Former Smoker Chew tobacco use (# tins/day): No Frequency of alcohol use: None Drug Abuse: None Family History: Reviewed & Not Pertinent, CAD, Hypertension Patient has homicidal ideation: No - Past Medical History Cardiac Medical History: Reports: Hx Congestive Heart Failure, Hx Coronary Artery Disease, Hx Heart Attack - 2013, Hx Hypercholesterolemia, Hx Hypertension Pulmonary Medical History: Reports: Hx Bronchitis Denies: Hx Asthma, Hx COPD, Hx Pneumonia, Hx Tuberculosis Neurological Medical History: Reports: Hx Cerebrovascular Accident - stroke 03/2014 while unresponsive following abd surgical complication. Denies: Hx Seizures Renal/ Medical History: Reports: Hx End Stage Renal Disease - kidney cancer, Hx Renal Insufficiency. Denies: Hx Peritoneal Dialysis Malignancy Medical History: Reports: Hx Lung Cancer - Right upper partial lobectomy 11/09/2018., Hx Pancreatic Cancer - Mass to tail pancreas, July 2015. Did not light up on PET scan., Hx Renal (Kidney) Cancer - Cell carcinoma with left nephrectomy 2007. GI Medical History: Reports: Hx Gastritis, Hx Gastroesophageal Reflux Disease Musculoskeletal Medical History: Reports Hx Arthritis - Right hip DJD., Reports Hx Gout - Tentative diagnosis of gout. Psychiatric Medical History: Denies: Hx Depression Past Surgical History: Reports: Hx Abdominal Surgery - HERNIA, PERFORATED BOWEL, Hx Cholecystectomy, Hx Herniorrhaphy - Umbilical hernia repair complicated by bowel perforation, Hx Kidney (Renal Surgery) - Left nephrectomy for renal cell carcinoma, Hx Vascular Surgery - Port placed in right upper arm 01/19/2019. Retinal detachment treated in , Other - EGD to evaluate pancreatic mass. Right upper partial lobectomy 11/09/2018.. Denies: Hx Hysterectomy - Immunizations Hx Diphtheria, Pertussis, Tetanus Vaccination: No Hx Pneumococcal Vaccination: 08/03/10 Physical Exam - Vital signs Vitals: Temp Pulse Resp BP Pulse Ox 99.3 F 117 H 20 145/87 H 96 12/29/19 11:20 12/29/19 11:20 12/29/19 11:20 12/29/19 11:20 12/29/19 11:20 Course - Vital Signs Vital signs: Temp Pulse Resp BP Pulse Ox 98.5 F 117 H 25 H 159/98 H 96 12/29/19 13:44 12/29/19 11:20 12/29/19 17:01 12/29/19 17:01 12/29/19 17:01 12/29/19 18:02 Patient is chest pain is resolved. Patient is not showing any signs of respiratory distress. - Laboratory Result Diagrams: 12/29/19 11:52 12/29/19 11:52 Laboratory results interpreted by me: 12/29/19 12/29/19 11:52 11:52 RBC 3.55 L Hgb 10.2 L Hct 31.1 L RDW 15.9 H Plt Count 117 L Chloride 109 H Carbon Dioxide 17 L BUN 37 H Creatinine 2.86 H Est GFR ( Amer) 20 L Est GFR (MDRD) Non-Af 17 L Glucose 125 H Albumin 3.4 L 12/29/19 18:02 Patient's vital signs shows no acute distress. 12/29/19 18:07 Chronic renal insufficiency noted. Patient appears to be dehydrated 12/29/19 18:07 - Diagnostic Test Radiology reviewed: Image reviewed, Reports reviewed Radiology results interpreted by me: 12/29/19 18:03 Chest x-ray shows no acute process. CT scan of chest shows no new findings. Patient has a chronic right pleural effusion. Patient has chronic pneumonitis atelectasis in both bases unchanged from prior scans. Incidentally noted nodule in thyroid gland and pancreas appear to have some inflammation present. - EKG Interpretation by Me Additional EKG results interpreted by me: 12/29/19 18:08 Twelve-lead EKG shows sinus tach rate tachycardia rate of 115 repull suggest ischemia. Right atrial abnormality multiple premature ventricular complexes. Inferior infarct age indeterminate consider posterior wall involvement. Discharge - Discharge Clinical Impression: Chronic cough, Lung cancer, Chronic CHF, Chronic renal insufficiency, stage III (moderate), Anemia, chronic disease Condition: Good Disposition: HOME, SELF-CARE Additional Instructions: Chest Wall Pain Your chest pain has been diagnosed as coming from the chest wall. This is often caused by straining the muscles or joints in the chest during physical activity, direct trauma, coughing, or vigorous vomiting. Persons with arthritis are especially prone to this type of pain, due to inflammation of the cartilage joints near the breast bone. Occasionally, no cause can be found. Rest from strenuous physical activity. This kind of chest pain is usually made worse by movement of the chest. Depending on the symptoms, we may prescribe medicine for pain, muscle relaxation, and antiinflammatory effects. If the pain is new, and seems to be due to muscle strain, cold packs can help. Otherwise, apply gentle warmth to the painful area for 15 minutes every hour or two. You should contact the doctor immediately if things change. Further evaluation is needed if you develop a fever or cough, if the nature of the pain changes, or if you become short of breath. Continue same medications including your pain medications for your chest wall pain. Today your CT scan did not show any difference in your chest in terms of prior markings prior pleural effusions. Referrals: LISSETTE CROCKETT, SACK FILLER [Primary Care Provider] - Follow up as needed I personally performed the services described in the documentation, reviewed and edited the documentation which was dictated to the scribe in my presence, and it accurately records my words and actions.
--- NOTE | 2019-12-29 19:01 | EKG REPORT ---
SEVERITY:- OTHERWISE NORMAL ECG - SINUS RHYTHM BORDERLINE LEFT AXIS DEVIATION : Confirmed by: Pascual Rosenthal MD 29-Dec-2019 19:00:26
[2019-12-29 19:02] VITALS: BP 145/98
== END 2019-12-29 19:02 | disposition home or self-care (01) ==
LOC: ER 11:17
DX: R06.02 Shortness of breath (principal); R05 Cough; C34.90 Malignant neoplasm of unspecified part of unspecified bronchus or lung; I50.9 Heart failure, unspecified; I13.0 Hypertensive heart and chronic kidney disease with heart failure and stage 1 through stage 4 chronic kidney disease, or unspecified chronic kidney disease; N18.3 Chronic kidney disease, stage 3 (moderate); D63.1 Anemia in chronic kidney disease; Z88.3 Allergy status to other anti-infective agents; Z88.6 Allergy status to analgesic agent
CPT/HCPCS: 93005; 99285; 96361; 96374; 96375; 36415; 85025; 80053; 71045; 71250; 93010; J2270; J2405; J7030; J1642

== ENCOUNTER 2020-01-21 15:17 | Emergency (ER) | payer MEDICARE, MEDICAID ==
--- NOTE | 2020-01-21 16:16 | RADIOLOGY REPORT (SQ) ---
EXAM DESCRIPTION: CHEST SINGLE VIEW IMAGES COMPLETED DATE/TIME: 01/21/2020 4:07 pm REASON FOR STUDY: cough COMPARISON: 12/29/2019 EXAM PARAMETERS: NUMBER OF VIEWS: One view. TECHNIQUE: Single frontal radiographic view of the chest acquired. RADIATION DOSE: NA LIMITATIONS: None. FINDINGS: LUNGS AND PLEURA: Stable appearing chronic right-sided pleural effusion. No new airspace consolidations. No left-sided pleural effusion. MEDIASTINUM AND HILAR STRUCTURES: Unchanged from previous examination. HEART AND VASCULAR STRUCTURES: Heart normal in size. Normal vasculature. BONES: No acute findings. HARDWARE: None in the chest. OTHER: Right upper extremity PICC with tip projecting over the superior cavoatrial junction. IMPRESSION: Chronic right-sided pleural effusion. No acute findings. TECHNICAL DOCUMENTATION: JOB ID: [id number] [employer]- All Rights Reserved Reading location - IP/workstation name: [email or web address]
[2020-01-21 16:31] LABS: ABSOLUTE LYMPHOCYTES (AUTO) 0.7 10^3/uL (0.5-4.7); ABSOLUTE MONOCYTES (AUTO) 0.3 10^3/uL (0.1-1.4); ABSOLUTE NEUT (AUTO) 2.1 10^3/uL (1.7-8.2); BASOPHILS % (AUTO) 0.4 % (0-2); HEMATOCRIT 32.9 % (36.0-47.0); HEMOGLOBIN 10.4 g/dL (12.0-15.5); LYMPHOCYTES % (AUTO) 22.7 % (13-45); MEAN CORPUSCULAR HGB CONC 31.7 g/dL (32.0-36.0); MEAN CORPUSCULAR VOLUME 88 fl (80-97); MONOCYTES % (AUTO) 9.4 % (3-13); PLATELET COUNT 122 10^3/uL (150-450); RED BLOOD COUNT 3.73 10^6/uL (3.72-5.28); RED CELL DISTRIBUTION WIDTH 16.7 % (11.5-14.0); SEGMENTED NEUTROPHILS % (AUTO) 67.5 % (42-78); TOTAL CELLS COUNTED % (AUTO) 100 %
[2020-01-21 16:33] LABS: APPEARANCE,URINE SLIGHTLY-CLOUDY; BILIRUBIN,URINE NEGATIVE (NEGATIVE); COLOR,URINE YELLOW; GLUCOSE, URINE NEGATIVE (NEGATIVE); KETONES,URINE NEGATIVE (NEGATIVE); LEUKOCYTE ESTERASE,URINE NEGATIVE (NEGATIVE); NITRITE,URINE NEGATIVE (NEGATIVE); PROTEIN,URINE 100 mg/dL (NEGATIVE); URINE SPECIFIC GRAVITY 1.016; UROBILINOGEN,URINE NEGATIVE mg/dL (<2.0)
[2020-01-21 16:54] LABS: ALBUMIN 3.5 g/dL (3.5-5.0); ALKALINE PHOSPHATASE 123 U/L (38-126); ANION GAP 9 (5-19); ASPARTATE AMINO TRANSFERASE 23 U/L (14-36); BILIRUBIN,TOTAL 0.4 mg/dL (0.2-1.3); BLOOD UREA NITROGEN 26 mg/dL (7-20); CALCIUM 9.1 mg/dL (8.4-10.2); CARBON DIOXIDE 18 mmol/L (22-30); CHLORIDE 112 mmol/L (98-107); GLUCOSE 167 mg/dL (75-110); POTASSIUM 3.7 mmol/L (3.6-5.0); TOTAL PROTEIN 7.4 g/dL (6.3-8.2)
--- NOTE | 2020-01-21 17:03 | ER Document Report ---
ED General - General Chief Complaint: Cough Stated Complaint: COUGHING BLOOD/DIFFICULTY BREATHING Time Seen by Provider: 01/21/20 16:20 Primary Care Provider: LISSETTE CROCKETT NP [Primary Care Provider] - Follow up as needed Mode of Arrival: Ambulatory Information source: Patient Notes: 64-year-old black female arrives with chief complaint of 3 weeks of loose hardy-colored stools and 2 weeks of nausea and vomiting of clear phlegm with blood-tinged over the last 3 days. Patient has a history of lung cancer on the right which was resected. She had 5 polyps removed in 2013 in [place] gastro[facility] but has not been seen since. She was evaluated for pancreati tis over the last few years as well. She has Phenergan at home but continues to have some nausea. TRAVEL OUTSIDE OF THE [place] IN LAST 30 DAYS: No - HPI Onset: Other - x 3 days Onset/Duration: Persistent Quality of pain: Fullness Severity: Mild Pain Level: 1 Associated symptoms: Productive cough, Diarrhea, Nausea, Vomiting Exacerbated by: Denies Relieved by: Denies Similar symptoms previously: Yes Recently seen / treated by doctor: Yes - Related Data Allergies/Adverse Reactions: sulfamethoxazole [From Bactrim] Allergy (Verified 12/29/19 11:47) trimethoprim [From Bactrim] Allergy (Verified 12/29/19 11:47) aspirin [Aspirin] Adverse Reaction (Verified 12/29/19 11:47) Past Medical History - General Information source: Patient - Social History Smoking Status: Unknown if Ever Smoked Cigarette use (# per day): No Chew tobacco use (# tins/day): No Smoking Education Provided: No Frequency of alcohol use: None Drug Abuse: None Family History: Reviewed & Not Pertinent, CAD, Hypertension Patient has suicidal ideation: No Patient has homicidal ideation: No - Past Medical History Cardiac Medical History: Reports: Hx Congestive Heart Failure, Hx Coronary Artery Disease, Hx Heart Attack - 2013, Hx Hypercholesterolemia, Hx Hypertension Pulmonary Medical History: Reports: Hx Bronchitis Denies: Hx Asthma, Hx COPD, Hx Pneumonia, Hx Tuberculosis Neurological Medical History: Reports: Hx Cerebrovascular Accident - stroke 03/2014 while unresponsive following abd surgical complication. Denies: Hx Seizures Renal/ Medical History: Reports: Hx End Stage Renal Disease - kidney cancer, Hx Renal Insufficiency. Denies: Hx Peritoneal Dialysis Malignancy Medical History: Reports: Hx Lung Cancer - Right upper partial lobectomy 11/09/2018., Hx Pancreatic Cancer - Mass to tail pancreas, July 2015. Did not light up on PET scan., Hx Renal (Kidney) Cancer - Cell carcinoma with left nephrectomy 2007. GI Medical History: Reports: Hx Gastritis, Hx Gastroesophageal Reflux Disease Musculoskeletal Medical History: Reports Hx Arthritis - Right hip DJD., Reports Hx Gout - Tentative diagnosis of gout. Psychiatric Medical History: Denies: Hx Depression Past Surgical History: Reports: Hx Abdominal Surgery - HERNIA, PERFORATED BOWEL, Hx Cholecystectomy, Hx Herniorrhaphy - Umbilical hernia repair complicated by bowel perforation, Hx Kidney (Renal Surgery) - Left nephrectomy for renal cell carcinoma, Hx Vascular Surgery - Port placed in right upper arm 01/19/2019. Retinal detachment treated in , Other - EGD to evaluate pancreatic mass. Right upper partial lobectomy 11/09/2018.. Denies: Hx Hysterectomy - Immunizations Hx Diphtheria, Pertussis, Tetanus Vaccination: No Hx Pneumococcal Vaccination: 08/03/10 Review of Systems - Review of Systems Constitutional: See HPI, Malaise, Weakness EENT: No symptoms reported Cardiovascular: See HPI, Palpitations, Lightheaded Respiratory: See HPI, Hemoptysis Gastrointestinal: See HPI, Diarrhea, Nausea, Vomiting Genitourinary: No symptoms reported Female Genitourinary: No symptoms reported Musculoskeletal: No symptoms reported Skin: No symptoms reported Physical Exam - Vital signs Vitals: Temp Pulse Resp BP Pulse Ox 99.2 F 133 H 18 132/111 H 96 01/21/20 15:23 01/21/20 15:23 01/21/20 15:23 01/21/20 15:23 01/21/20 15:23 - Respiratory Respiratory status: No respiratory distress Chest status: Nontender Breath sounds: Decreased air movement Chest palpation: Normal - Cardiovascular Rhythm: Tachycardia Heart sounds: Normal auscultation Murmur: No - Abdominal Inspection: Normal Distension: No distension Bowel sounds: Hyperactive Tenderness: Nontender Organomegaly: No organomegaly - Rectal Stool: Other - deferred - Genitourinary Speculum exam: Other - deferred - Back Back: Normal - Extremities General upper extremity: Normal inspection General lower extremity: Normal inspection - Neurological Neuro grossly intact: Yes Cognition: Normal Orientation: AAOx4 Justin Coma Scale Eye Opening: Spontaneous [place] Coma Scale Verbal: Oriented Justin Coma Scale Motor: Obeys Commands [place] Coma Scale Total: 15 Speech: Normal Motor strength normal: LUE, RUE, LLE, RLE Sensory: Normal - Psychological Associated symptoms: Normal affect - Skin Skin Temperature: Warm Skin Moisture: Dry Course - Vital Signs Vital signs: Temp Pulse Resp BP Pulse Ox 98.6 F 133 H 18 155/102 H 99 01/21/20 19:46 01/21/20 15:23 01/21/20 20:01 01/21/20 20:01 01/21/20 20:01 - Laboratory Result Diagrams: 01/21/20 16:10 01/21/20 16:10 Laboratory results interpreted by me: 01/21/20 01/21/20 01/21/20 16:10 16:10 16:10 WBC 3.0 L Hgb 10.4 L Hct 32.9 L MCHC 31.7 L RDW 16.7 H Plt Count 122 L Chloride 112 H Carbon Dioxide 18 L BUN 26 H Creatinine 2.28 H Est GFR ( Amer) 26 L Est GFR (MDRD) Non-Af 22 L Glucose 167 H NT-Pro-B Natriuret Pep Lipase Urine Protein 100 H 01/21/20 01/21/20 16:10 16:10 WBC Hgb Hct MCHC RDW Plt Count Chloride Carbon Dioxide BUN Creatinine Est GFR ( Amer) Est GFR (MDRD) Non-Af Glucose NT-Pro-B Natriuret Pep 823 H Lipase 336.6 H Urine Protein - Diagnostic Test Radiology reviewed: Reports reviewed Radiology results interpreted by me: 01/21/20 18:40 Abnormal gas pattern but no SBO per radiology 01/21/20 18:41 R Sided pleural effusion on chest x-ray Critical Care Note - Critical Care Note Total time excluding time spent on procedures (mins): 90 Comments: Advised patient of lab findings and advised he may go home with her current labs. Discharge - Discharge Clinical Impression: Anemia, chronic disease Nausea and vomiting Qualifiers: Vomiting type: unspecified Vomiting Intractability: unspecified Qualified Code(s): R11.2 - Nausea with vomiting, unspecified Diarrhea Qualifiers: Diarrhea type: unspecified type Qualified Code(s): R19.7 - Diarrhea, unspecified Anemia, chronic renal failure Qualifiers: Chronic kidney disease stage: unspecified stage Qualified Code(s): N18.9 - Chronic kidney disease, unspecified; D63.1 - Anemia in chronic kidney disease Pancreatitis Qualifiers: Chronicity: chronic Pancreatitis type: unspecified pancreatitis type Qualified Code(s): K86.1 - Other chronic pancreatitis Clinical Impression: (Ruled Out): Tachycardia Disposition: HOME, SELF-CARE Additional Instructions: Follow-up with personal doctor this week return to ER as needed for emergencies take medicines as directed encourage fluids Prescriptions: Promethazine HCl/Codeine [Prometh-Codein 6.25-10 mg/5 ml] 5 ml PO TID PRN #150 ml PRN Reason: nausea Cholestyramine [Questran 4 gm Packet] 4 gm PO BID PRN 6 Days #12 packet PRN Reason: Diarrhea Referrals: LISSETTE CROCKETT NP [Primary Care Provider] - Follow up as needed
[2020-01-21] MEDS ORDERED: PROMETHAZINE HCL 6.25 MG/5 ML SYRUP 60 ML PO ONE (17:10)
[2020-01-21] MEDS ORDERED: CODEINE SULF 30 MG TABLET PO ONE (17:11)
[2020-01-21] MEDS ORDERED: CHOLESTYRAMINE 4 GM PACKET PO ONE (17:12)
--- NOTE | 2020-01-21 17:49 | RADIOLOGY REPORT (SQ) ---
EXAM DESCRIPTION: KUB/ABDOMEN (SINGLE VIEW) IMAGES COMPLETED DATE/TIME: 01/21/2020 5:39 pm REASON FOR STUDY: diarrhea COMPARISON: 12/26/2014 NUMBER OF VIEWS: One view. TECHNIQUE: Supine radiographic image of the abdomen acquired. LIMITATIONS: None. FINDINGS: BOWEL GAS PATTERN: There are multiple air-filled loops of small bowel present. No dilated loops are appreciated. CALCIFICATIONS: No suspicious calcifications. SOFT TISSUES: No gross mass or suggestion of organomegaly. HARDWARE: None in the abdomen. BONES: No acute fracture. No worrisome bone lesions. OTHER: Diffuse postsurgical changes throughout the abdomen. IMPRESSION: Nonspecific, slightly abnormal bowel gas pattern without definitive signs of obstruction or free air. TECHNICAL DOCUMENTATION: JOB ID: [id number] 2010 [employer]- All Rights Reserved Reading location - IP/workstation name: [email or web address]
[2020-01-21] MEDS ORDERED: CHOLESTYRAMINE 4 GM PACKET ONE (18:27)
[2020-01-21] MEDS ORDERED: LACTOBACILLUS ACIDOPHILUS 250 MG TAB PO ONE (18:42)
--- NOTE | 2020-01-21 18:53 | EKG REPORT ---
SEVERITY:- OTHERWISE NORMAL ECG - SINUS TACHYCARDIA BORDERLINE LEFT AXIS DEVIATION : Confirmed by: Pascual Rosenthal MD 21-Jan-2020 18:52:52
[2020-01-21 21:54] VITALS: BP 164/101
== END 2020-01-21 21:58 | disposition home or self-care (01) ==
LOC: ER 15:17
DX: R19.7 Diarrhea, unspecified (principal); I12.0 Hypertensive chronic kidney disease with stage 5 chronic kidney disease or end stage renal disease; E11.22 Type 2 diabetes mellitus with diabetic chronic kidney disease; N18.6 End stage renal disease; D63.1 Anemia in chronic kidney disease; J90 Pleural effusion, not elsewhere classified; R04.2 Hemoptysis; R11.2 Nausea with vomiting, unspecified; R53.1 Weakness; R53.81 Other malaise; R00.2 Palpitations; R42 Dizziness and giddiness; R00.0 Tachycardia, unspecified; Z85.528 Personal history of other malignant neoplasm of kidney; Z90.5 Acquired absence of kidney; Z85.118 Personal history of other malignant neoplasm of bronchus and lung; Z90.2 Acquired absence of lung [part of]; Z88.1 Allergy status to other antibiotic agents; I25.10 Atherosclerotic heart disease of native coronary artery without angina pectoris; Z85.07 Personal history of malignant neoplasm of pancreas; K86.1 Other chronic pancreatitis
CPT/HCPCS: 93005; 36591; 99285; 36415; 83690; 85025; 80053; 81001; 83880; 71045; 74018; 93010; A9270 ×3; J1642; J3490

== ENCOUNTER → 2020-02-09 | Outpatient (CLI) | payer MEDICAID, MEDICARE ==
--- NOTE | 2020-02-09 12:00 | RADIOLOGY REPORT (SQ) ---
EXAM DESCRIPTION: CT CHEST WITHOUT IMAGES COMPLETED DATE/TIME: 02/09/2020 9:36 am REASON FOR STUDY: C34.11 MALIGNANT NEOPLASM OF UPPER LOBE, RIGHT BRONCHUS OR LUNG C34.11 MALIGNANT NEOPLASM OF UPPER LOBE, RIGHT BRONCHUS OR L COMPARISON: 12/29/2019 TECHNIQUE: CT scan performed of the chest without intravenous contrast. Images reviewed with lung, soft tissue and bone windows. Reconstructed coronal and sagittal MPR images reviewed. All images st ored on PACS. All CT scanners at this facility use dose modulation, iterative reconstruction, and/or weight based d osing when appropriate to reduce radiation dose to as low as reasonably achievable (ALARA). [facility]: Dose Right [facility]: CareDose [facility]: Dose Right [facility]: Teradose 4D [facility]: Long Play RADIATION DOSE: CT Rad equipment meets quality standard of care and radiation dose reduction techniq ues were employed. CTDIvol: 4.6 mGy. DLP: 169 mGy-cm. mGy. LIMITATIONS: No technical limitations. FINDINGS: LUNGS AND PLEURA: Improved aeration of the lungs demonstrating diminished diffuse ground-g lass opacities. Stable post treatment changes. Persistent moderate right pleural effusion. No acut e findings. HILAR AND MEDIASTINAL STRUCTURES: No identified masses or abnormal nodes. No obvious aneurysm. HEART AND VASCULAR STRUCTURES: Ectatic appearing ascending aorta. Coronary artery calcifications. T race pericardial fluid. UPPER ABDOMEN: Stable. THYROID AND OTHER SOFT TISSUES: Stable right thyroid nodule. No lymphadenopathy. BONES: No significant finding. HARDWARE: Right upper extremity PICC terminates in the region of the superior vena cava. OTHER: No other significant findings. IMPRESSION: Improved pulmonary exam demonstrating diminished ground-glass opacities superimposed upo n a stable appearance of treatment changes with a persistent right-sided pleural effusion. TECHNICAL DOCUMENTATION: JOB ID: [id number] Quality ID # [id number]: Final reports with documentation of one or more dose reduction techniques (e.g., Au tomated exposure control, adjustment of the mA and/or kV according to patient size, use of iterative reconstruction technique) 2010 [employer]- All Rights Reserved Reading location - IP/workstation name: [email or web address]
== END ==
LOC: RAD 09:26
PROVIDERS: ATTEND Internal Medicine
DX: C34.11 Malignant neoplasm of upper lobe, right bronchus or lung (principal)
CPT/HCPCS: 71250

== ENCOUNTER 2020-02-10 15:40 | Inpatient (IN) | payer MEDICARE ==
[2020-02-10] MEDS ORDERED: NORMAL SALINE 1000 ML 1,000 ML IV ONE ×2 (19:50→23:06)
[2020-02-10] MEDS ORDERED: PROMETHAZINE HCL INJ 25 MG/1 ML VIAL IV ONE (19:50)
[2020-02-10] MEDS ORDERED: HYDROMORPHONE HCL INJ/PF 2 MG/ML AMPULE IV ONE ×2 (19:54→23:06)
--- NOTE | 2020-02-10 19:56 | ER Document Report ---
ED General - General Chief Complaint: Nausea/Vomiting Stated Complaint: NAUSEA,VOMITING,DIARRHEA Primary Care Provider: LISSETTE CROCKETT NP [Primary Care Provider] - Follow up as needed Notes: Patient is a 64-year-old -[place] female with a history of CKD stage III, prior colonic polyps, prior left kidney nephrectomy status post kidney cancer, prior lung cancer in remission with a 20% removal of the right lung with a history of chronic pancreatitis who presents to the emergency department with a chief complaint of nausea vomiting and diarrhea that began 3 days ago. She states over the past 3 days is gradually worsening. States that now any oral intake provokes nausea and vomiting. She states her blood pressure is elevated because she is not been able to take her antihypertensive medications due to the inability to keep them down. She denies any chest pain or shortness of breath. Admits to upper abdominal pain centrally for the past 3 days. Denies any radiation of pain. Has been fairly constant. Denies any fevers. She states she has had no sick contacts or any potential exposures to COVID-19 because of her health conditions she stays home and isolates anyway. She denies any fever. She has an underlying chronic baseline cough that she states she was told she would always have or at least for a great while after the partial lung removal. She states this is not worsened or changed in any way. She also admits to prior cholecystectomy. Has an appointment on Thursday with Dr. Troy kimball TRAVEL OUTSIDE OF THE [place] IN LAST 30 DAYS: No - Related Data Allergies/Adverse Reactions: sulfamethoxazole [From Bactrim] Allergy (Verified 12/29/19 11:47) trimethoprim [From Bactrim] Allergy (Verified 12/29/19 11:47) aspirin [Aspirin] Adverse Reaction (Verified 12/29/19 11:47) Past Medical History - Social History Smoking Status: Never Smoker Chew tobacco use (# tins/day): No Frequency of alcohol use: None Drug Abuse: None Family History: Reviewed & Not Pertinent, CAD, Hypertension Patient has homicidal ideation: No - Past Medical History Cardiac Medical History: Reports: Hx Congestive Heart Failure, Hx Coronary Artery Disease, Hx Heart Attack - 2013, Hx Hypercholesterolemia, Hx Hypertension Pulmonary Medical History: Reports: Hx Bronchitis Denies: Hx Asthma, Hx COPD, Hx Pneumonia, Hx Tuberculosis Neurological Medical History: Reports: Hx Cerebrovascular Accident - stroke 03/2014 while unresponsive following abd surgical complication. Denies: Hx Seiz ures Renal/ Medical History: Reports: Hx End Stage Renal Disease - kidney cancer, Hx Renal Insufficiency. Denies: Hx Peritoneal Dialysis Malignancy Medical History: Reports: Hx Lung Cancer - Right upper partial lobectomy 11/09/2018., Hx Pancreatic Cancer - Mass to tail pancreas, July 2015. Did not light up on PET scan., Hx Renal (Kidney) Cancer - Cell carcinoma with left nephrectomy 2007. GI Medical History: Reports: Hx Gastritis, Hx Gastroesophageal Reflux Disease Musculoskeletal Medical History: Reports Hx Arthritis - Right hip DJD., Reports Hx Gout - Tentative diagnosis of gout. Psychiatric Medical History: Denies: Hx Depression Past Surgical History: Reports: Hx Abdominal Surgery - HERNIA, PERFORATED BOWEL, Hx Cholecystectomy, Hx Herniorrhaphy - Umbilical hernia repair complicated by bowel perforation, Hx Kidney (Renal Surgery) - Left nephrectomy for renal cell carcinoma, Hx Vascular Surgery - Port placed in right upper arm 01/19/2019. Retinal detachment treated in , Other - EGD to evaluate pancreatic mass. Right upper partial lobectomy 11/09/2018.. Denies: Hx Hysterectomy - Immunizations Hx Diphtheria, Pertussis, Tetanus Vaccination: No Hx Pneumococcal Vaccination: 08/03/10 Review of Systems - Review of Systems Constitutional: denies: Fever EENT: denies: Throat pain Cardiovascular: denies: Chest pain Respiratory: Cough. denies: Short of breath Gastrointestinal: Abdominal pain, Diarrhea, Nausea, Vomiting Genitourinary: denies: Burning, Dysuria Female Genitourinary: denies: Vaginal discharge Musculoskeletal: denies: Back pain Skin: denies: Change in color Hematologic/Lymphatic: denies: Blood clots Neurological/Psychological: denies: Lost consciousness, Headaches Physical Exam - Vital signs Vitals: Temp Pulse Resp BP Pulse Ox 98.7 F 113 H 16 148/107 H 98 02/10/20 16:29 02/10/20 16:29 02/10/20 16:29 02/10/20 16:29 02/10/20 16:29 - General General appearance: Alert, Anxious Notes: Uncomfortable appearing - HEENT Head: Normocephalic, Atraumatic Eyes: Normal Conjunctiva: Normal Extraocular movements intact: Yes Pupils: PERRL Mouth/Lips: Normal Mucous membranes: Dry Neck: Supple - Respiratory Respiratory status: No respiratory distress Chest status: Nontender Breath sounds: Normal Chest palpation: Normal - Cardiovascular Rhythm: Regular Heart sounds: Normal auscultation - Abdominal Inspection: Normal Distension: No distension Bowel sounds: Normal Tenderness: Tender, Guarding - Tenderness and guarding to the right upper and left upper quadrants and epigastrium - Extremities General upper extremity: Normal inspection, Nontender, Normal color, Normal ROM, Normal temperature General lower extremity: Normal inspection, Nontender, Normal color, Normal ROM, Normal temperature, Normal weight bearing. No: Sami's sign - Neurological Neuro grossly intact: Yes Cognition: Normal Orientation: AAOx4 - Psychological Associated symptoms: Anxious - Skin Skin Temperature: Warm Skin Moisture: Dry Skin Color: Normal Course - Re-evaluation Re-evalutation: 02/10/20 23:48 11:48 PM, just spoke with Dr. Ludwig. We discussed the patient's laboratory and ultrasound findings. Suspect acute on chronic pancreatitis. The patient despite rounds of Dilaudid and antiemetics is still writhing with discomfort and retching with occasional vomitus. She is getting IV fluids at this time. She is stable for admission. Dr. Padilla and agrees to admit for further care and management. - Vital Signs Vital signs: Temp Pulse Resp BP Pulse Ox 99.1 F 118 H 24 H 133/101 H 96 02/10/20 19:40 02/10/20 19:40 02/10/20 19:40 02/10/20 19:40 02/10/20 19:40 - Laboratory Result Diagrams: 02/10/20 22:16 02/10/20 22:16 Laboratory results interpreted by me: 02/10/20 02/10/20 02/10/20 22:16 22:16 22:48 WBC 3.2 L RBC 3.48 L Hgb 9.8 L Hct 30.7 L MCHC 31.9 L RDW 17.7 H Plt Count 142 L Absolute Lymphs (auto) 0.4 L Seg Neutrophils % 79.7 H Potassium 3.5 L BUN 25 H Creatinine 1.82 H Est GFR ( Amer) 34 L Est GFR (MDRD) Non-Af 28 L Glucose 114 H Calcium 8.0 L Albumin 3.0 L Lipase 1005.2 H Urine Protein 100 H Urine Ketones 20 H Urine Blood SMALL H Leukocyte Esterase Rfl TRACE H Discharge - Discharge Clinical Impression: Pancreatitis Qualifiers: Chronicity: acute Pancreatitis type: unspecified pancreatitis type Acute pancreatitis complication: unspecified Qualified Code(s): K85.90 - Acute pancreatitis without necrosis or infection, unspecified Nausea & vomiting Qualifiers: Vomiting type: unspecified Vomiting Intractability: unspecified Qualified Code(s): R11.2 - Nausea with vomiting, unspecified Diarrhea Qualifiers: Diarrhea type: unspecified type Qualified Code(s): R19.7 - Diarrhea, unspecified Condition: Fair Disposition: ADMITTED INPATIENT Admitting Provider: Oziel (Hospitalist) Unit Admitted: Medical Floor Referrals: LISSETTE CROCKETT NP [Primary Care Provider] - Follow up as needed
--- NOTE | 2020-02-10 21:08 | RADIOLOGY REPORT (SQ) ---
EXAM DESCRIPTION: Right upper quadrant abdominal ultrasound CLINICAL HISTORY: 64 years Female; upper abd, pancreas. n/v/d/pain TECHNIQUE: Abdominal ultrasound was performed. COMPARISON: CT scan of the abdomen without contrast July 14, 2019 FINDINGS: Pancreas: The body of the pancreas is unremarkable. The head and tail are not well seen. Liver: The liver measures 13 cm in length and is difficult to visualize. Portal vein is patent with hepatopedal flow.. Gallbladder: Surgically absent Common bile duct: 6.0 mm. Right kidney: The kidney measures 10.0 x 4.2 x 4.7 cm. There is increased echogenicity suggesting medical renal disease.. No hydronephrosis. Aorta:Visualized portions are within normal limits. IVC: Visualized portions are within normal limits. Ascites: No free fluid. Right-sided pleural effusion. IMPRESSION: 1. Increased echogenicity of the right kidney consistent with medical renal disease. 2. Right-sided pleural effusion. 3. Liver is not well seen. No obvious abnormality.
[2020-02-10 22:43] LABS: ABSOLUTE MONOCYTES (AUTO) 0.2 10^3/uL (0.1-1.4); HEMOGLOBIN 9.8 g/dL (12.0-15.5); PLATELET COUNT 142 10^3/uL (150-450); TOTAL CELLS COUNTED % (AUTO) 100 %
[2020-02-10 22:50] LABS: ALKALINE PHOSPHATASE 98 U/L (38-126); ANION GAP 9 (5-19); ASPARTATE AMINO TRANSFERASE 26 U/L (14-36); BILIRUBIN,DIRECT 0.2 mg/dL (0.0-0.4); BILIRUBIN,TOTAL 0.6 mg/dL (0.2-1.3); BLOOD UREA NITROGEN 25 mg/dL (7-20); CARBON DIOXIDE 24 mmol/L (22-30); CHLORIDE 104 mmol/L (98-107); GLUCOSE 114 mg/dL (75-110); POTASSIUM 3.5 mmol/L (3.6-5.0); TOTAL PROTEIN 6.5 g/dL (6.3-8.2)
[2020-02-10] MEDS ORDERED: ONDANSETRON HCL INJ/PF 4 MG/2 ML SDV IV ONE (23:06)
[2020-02-10 23:13] LABS: ABSOLUTE LYMPHOCYTES (AUTO) 0.4 10^3/uL (0.5-4.7); ABSOLUTE NEUT (AUTO) 2.6 10^3/uL (1.7-8.2); BASOPHILS % (AUTO) 0.5 % (0-2); HEMATOCRIT 30.7 % (36.0-47.0); LYMPHOCYTES % (AUTO) 13.9 % (13-45); MEAN CORPUSCULAR HEMOGLOBIN 28.1 pg (27.0-33.4); MEAN CORPUSCULAR HGB CONC 31.9 g/dL (32.0-36.0); MEAN CORPUSCULAR VOLUME 88 fl (80-97); MONOCYTES % (AUTO) 5.9 % (3-13); RED BLOOD COUNT 3.48 10^6/uL (3.72-5.28); RED CELL DISTRIBUTION WIDTH 17.7 % (11.5-14.0); SEGMENTED NEUTROPHILS % (AUTO) 79.7 % (42-78); WHITE BLOOD COUNT 3.2 10^3/uL (4.0-10.5)
--- NOTE | 2020-02-10 23:13 | EKG REPORT ---
SEVERITY:- OTHERWISE NORMAL ECG - SINUS TACHYCARDIA BORDERLINE LEFT AXIS DEVIATION : Confirmed by: Pascual Rosenthal MD 10-Feb-2020 23:12:35
[2020-02-10 23:38] LABS: APPEARANCE,URINE CLEAR; BILIRUBIN,URINE NEGATIVE (NEGATIVE); COLOR,URINE YELLOW; GLUCOSE, URINE NEGATIVE (NEGATIVE); KETONES,URINE 20 mg/dL (NEGATIVE); PROTEIN,URINE 100 mg/dL (NEGATIVE); UROBILINOGEN,URINE NEGATIVE mg/dL (<2.0)
[2020-02-11] MEDS ORDERED: MORPHINE SULFATE 10 MG/ML INJ IV PRN ×2 (00:33)
[2020-02-11] MEDS ORDERED: LORAZEPAM INJ 2 MG/1 ML VIAL IV PRN (00:34)
[2020-02-11] MEDS ORDERED: METOPROLOL TARTRATE PF/INJ 5 MG/5 ML SDV IV PRN (00:34)
[2020-02-11] MEDS ORDERED: CHLORPROMAZINE HCL INJ 25 MG/1 ML AMPULE IV PRN (00:34)
[2020-02-11] MEDS ORDERED: ACETAMINOPHEN 650 MG SUPP.RECT PR PRN (00:34)
[2020-02-11] MEDS ORDERED: HYDRALAZINE HCL INJ/PF 20 MG/1 ML SDV IV PRN (00:34)
--- NOTE | 2020-02-11 01:34 | RADIOLOGY REPORT (SQ) ---
CLINICAL HISTORY: Epigastric abdominal pain COMPARISON: 07/14/2019. TECHNIQUE: CT ABDOMEN PELVIS WITHOUT IV CONTRAST on 02/11/2020 12:00 AM CDT This exam was performed according to our departmental dose-optimization program, which includes automated exposure control, adjustment of the mA and/or kV according to patient size and/or use of iterative reconstruction technique. FINDINGS: There is a moderate right pleural effusion. Abdomen: The liver is normal in appearance. There is no biliary dilatation. Cholecystectomy was performed. There were extensive calcifications of the pancreas likely due to chronic pancreatitis. There are moderate inflammatory changes surrounding the pancreas. Adrenal glands are normal. Right kidney is unremarkable. Left kidney is absent. Abdominal aorta is normal in course and caliber without aneurysm. There is no free air. There is no retroperitoneal adenopathy. Extensive ventral hernia repair was performed in the anterior abdominal wall. Pelvis: There are postoperative changes of the cecum. Urinary bladder is unremarkable. There is no free fluid. Uterus is normal in size. The appendix is not seen. Skeleton: There are no acute osseous findings. No suspicious bony lesions. IMPRESSION: Suspect acute on chronic pancreatitis.
[2020-02-11] MEDS: MORPHINE SULFATE 10 MG/ML INJ IV PRN ×2 (01:41→13:26)
[2020-02-11] MEDS: DEXTROSE 5%-LACTATED RINGERS 1,000 ML IV PRN ×3 (01:57→17:55)
--- NOTE | 2020-02-11 01:58 | PDOC H&P ---
History of Present Illness Admission Date/PCP: 02/10/2020 23:56 LISSETTE CROCKETT NP Patient complains of: Abdominal pain History of Present Illness: JIHAN MCGRAW is a 64 year old female who presented emergency room with a 3-day history of abdominal pain. She admits the gradual development and worsening of constant epigastric cramping abdominal pain without radiation for the last 3 days, becoming severe today. The pain has been accompanied by constant nausea with episodic vomiting and diarrhea. Her abdominal pain has been associated with decreased oral intake and decreased appetite. She denies other associated or accompanying signs and symptoms. She admits numerous prior similar episodes related to her chronic pancreatitis. She has not identified any aggravating or ameliorating factors for her abdominal pain. In the emergency room she was found to have a serum amylase of 1005 with and was noted to have intractable nausea with retching. She was subsequently admitted to the hospital for further evaluation and treatment. Past Medical History Cardiac Medical History: Reports: Congestive Heart Failure, Coronary Artery Disease, Myocardial Infarction - 2013, Hyperlipidema, Hypertension Pulmonary Medical History: Reports: Bronchitis, Other - Primary lung cancer status post segmental excision Denies: Asthma, Chronic Obstructive Pulmonary Disease (COPD), Pneumonia, Tuberculosis EENT Medical History: Denies: Cataracts, Ears - Hearing aids Neurological Medical History: Reports: Other - TIAs Denies: Hemorrhagic CVA, Ischemic CVA, Seizures Endocrine Medical History: Denies: Diabetes Mellitus Type 1, Diabetes Mellitus Type 2, Hyperthyroidism, Hypothyroidism Renal/ Medical History: Reports: Chronic Kidney Disease, Other - Status post left nephrectomy for renal carcinoma Denies: Nephrolithiasis Malignancy Medical History: Reports: Lung Cancer - Right upper partial lobectomy 11/09/2018., Pancreatic Cancer - Mass to tail pancreas, July 2015. Did not light up on PET scan., Renal (Kidney) Cancer - Renal cell carcinoma with left nephrectomy 2007. GI Medical History: Reports: Gastroesophageal Reflux Disease, Other - Chronic pancreatitis Denies: Cirrhosis, Crohn's Disease, Diverticulitis, Hepatitis, Peptic Ulcer Disease, Ulcerative Colitis Musculoskeltal Medical History: Reports: Arthritis - Right hip DJD., Gout Skin Medical History: Denies: Eczema, Psoriasis Psychiatric Medical History: Denies: Alcohol Dependency, Depression, Substance Abuse, Tobacco Dependency Traumatic Medical History: Reports: None Hematology: Reports: Anemia - Chronic Denies: Bleeding Tendencies Infectious Medical History: Reports: None Past Surgical History Past Surgical History: Colonic polyps requiring resection x3, left nephrectomy, right thoracotomy with segmental excision, Past Surgical History: Reports: Cholecystectomy, Herniorrhaphy - Umbilical hernia repair complicated by bowel perforation and peritonitis, Orthopedic Surgery - Right patella surgery for dislocation,, Vascular Surgery - Port placed in right upper arm 01/19/2019. Retinal detachment repair., Other - EGD to evaluate pancreatic mass. Right upper partial lobectomy 11/09/2018. Social History Information Source: Patient Lives with: Alone Smoking Status: Former Smoker Electronic Cigarette use?: No Frequency of Alcohol Use: None Hx Recreational Drug Use: No Drugs: None Hx Prescription Drug Abuse: No - Advance Directive Resuscitation Status: Full Code Surrogate healthcare decision maker:: Polina Mcgraw Family History Family History: CAD, Hypertension Parental Family History Reviewed: Yes Children Family History Reviewed: No Sibling(s) Family History Reviewed.: Yes Medication/Allergy Home Medications: Calcitriol 0.5 mcg PO DAILY 09/09/19 Sodium Bicarbonate [Sodium Bicarbonate 650 mg Tablet] 650 mg PO DAILY 09/09/19 Acetaminophen [Tylenol 325 mg Tablet] 650 mg NG Q8HP PRN tablet 09/13/19 Amlodipine Besylate [Norvasc 10 mg Tablet] 10 mg PO DAILY #30 tablet 09/13/19 Azithromycin 250 mg PO DAILY #4 tablet 09/13/19 Hydrocodone Bit/Homatropine [Hycodan 5-1.5 mg Tablet] 1 tab PO Q6HP PRN #12 tablet 09/13/19 Prednisone [Deltasone 20 mg Tablet] 20 mg PO ASDIR PRN #25 tablet 09/13/19 Hydrocodone Bit/Homatropine [Hycodan Syrup 5-1.5 mg/5 ml Ud Cup] 5 ml PO Q4HP PRN #120 ml 09/16/19 Morphine Sulfate [Morphine Oral Soln 10 Mg/5 Ml Udcup] 10 mg PO Q6H 5 Days udc 10/07/19 Morphine Sulfate [Morphine Oral Soln 10 Mg/5 Ml Udcup] 10 mg PO Q6H 5 Days #20 udc 10/07/19 Cholestyramine [Questran 4 gm Packet] 4 gm PO BID PRN 6 Days #12 packet 01/21/20 Promethazine HCl/Codeine [Prometh-Codein 6.25-10 mg/5 ml] 5 ml PO TID PRN #150 ml 01/21/20 Allergies/Adverse Reactions: sulfamethoxazole [From Bactrim] Allergy (Verified 12/29/19 11:47) trimethoprim [From Bactrim] Allergy (Verified 12/29/19 11:47) aspirin [Aspirin] Adverse Reaction (Verified 12/29/19 11:47) Review of Systems Constitutional: ABSENT: chills, fever(s) Eyes: ABSENT: visual disturbances, other - Eye pain Ears: ABSENT: hearing changes, other - Ear pain Nose, Mouth, and Throat: ABSENT: headache(s), sore throat Cardiovascular: ABSENT: chest pain, palpitations Respiratory: PRESENT: cough - Chronic. ABSENT: dyspnea Gastrointestinal: PRESENT: as per HPI, abdominal pain, diarrhea, nausea, vomiting. ABSENT: coffee ground emesis, constipation, hematemesis, hematochezia, melena Genitourinary: ABSENT: dysuria, hematuria Musculoskeletal: ABSENT: back pain, joint swelling Integumentary: ABSENT: pruritus, rash Neurological: ABSENT: confusion, convulsions, focal weakness, memory loss, syncope Psychiatric: ABSENT: anxiety, depression Endocrine: ABSENT: cold intolerance, heat intolerance Hematologic/Lymphatic: ABSENT: easy bleeding, easy bruising Allergic/Immunologic: ABSENT: seasonal rhinorrhea Physical Exam Vital Signs: Temp Pulse Resp BP Pulse Ox 99.1 F 118 H 24 H 133/101 H 96 02/10/20 19:40 02/10/20 19:40 02/10/20 19:40 02/10/20 19:40 02/10/20 19:40 Intake & Output 02/08/20 02/09/20 02/10/20 23:59 23:59 23:59 Intake Total 1000 Balance 1000 General appearance: PRESENT: cooperative, mild distress - Secondary to intractable nausea, other - Appears acutely ill Head exam: PRESENT: atraumatic, normocephalic Eye exam: PRESENT: conjunctiva pink. ABSENT: conjunctival injection, scleral icterus Ear exam: PRESENT: normal external ear exam. ABSENT: bleeding, drainage Mouth exam: PRESENT: dry mucosa, neck supple Neck exam: ABSENT: thyromegaly, tracheal deviation Respiratory exam: PRESENT: clear to auscultation marianna, symmetrical, unlabored Cardiovascular exam: PRESENT: RRR. ABSENT: clicks, gallop, rubs Pulses: PRESENT: normal radial pulses, normal dorsalis pedis pul Vascular exam: PRESENT: normal capillary refill. ABSENT: pallor GI/Abdominal exam: PRESENT: normal bowel sounds, soft, tenderness - Moderate epigastric tenderness to palpation Rectal exam: PRESENT: deferred Extremities exam: ABSENT: joint swelling, pedal edema Musculoskeletal exam: ABSENT: deformity, dislocation Neurological exam: PRESENT: alert, oriented to person, oriented to place, oriented to time, oriented to situation, CN II-XII grossly intact. ABSENT: motor sensory deficit Psychiatric exam: PRESENT: appropriate affect, normal mood Skin exam: PRESENT: dry, intact, warm. ABSENT: jaundice, rash, urticaria Results Laboratory Results: 02/10/20 22:16 02/10/20 22:16 02/10/20 02/10/20 02/10/20 22:16 22:16 22:48 WBC 3.2 L RBC 3.48 L Hgb 9.8 L Hct 30.7 L MCV 88 MCH 28.1 MCHC 31.9 L RDW 17.7 H Plt Count 142 L Seg Neutrophils % 79.7 H Sodium 137.3 Potassium 3.5 L Chloride 104 Carbon Dioxide 24 Anion Gap 9 BUN 25 H Creatinine 1.82 H Est GFR ( Amer) 34 L Glucose 114 H Calcium 8.0 L Total Bilirubin 0.6 AST 26 Alkaline Phosphatase 98 Total Protein 6.5 Albumin 3.0 L Lipase 1005.2 H Urine Color YELLOW Urine Appearance CLEAR Urine pH 6.0 Ur Specific [place] 1.010 Urine Protein 100 H Urine Glucose (UA) NEGATIVE Urine Ketones 20 H Urine Blood SMALL H Urine RBC (Auto) 1 02/10/20 22:16 Troponin I 0.019 Impressions: Abdomen Ultrasound 02/10/20 19:51 IMPRESSION: 1. Increased echogenicity of the right kidney consistent with medical renal disease. 2. Right-sided pleural effusion. 3. Liver is not well seen. No obvious abnormality. Assessment and Plan - Diagnosis (1) Epigastric abdominal pain Is this a current diagnosis for this admission?: Yes (2) Acute on chronic pancreatitis Is this a current diagnosis for this admission?: Yes (3) Nausea and vomiting Qualifiers: Vomiting type: unspecified Vomiting Intractability: intractable Qualified Code(s): R11.2 - Nausea with vomiting, unspecified Is this a current diagnosis for this admission?: Yes (4) Diarrhea Qualifiers: Diarrhea type: unspecified type Qualified Code(s): R19.7 - Diarrhea, unspecified Is this a current diagnosis for this admission?: Yes (5) Accelerated essential hypertension Is this a current diagnosis for this admission?: Yes (6) GERD with esophagitis Is this a current diagnosis for this admission?: Yes (7) Kidney disease, chronic, stage IV (GFR 15-29 ml/min) Is this a current diagnosis for this admission?: Yes (8) Anemia, chronic renal failure Qualifiers: Chronic kidney disease stage: stage 4 (severe) Qualified Code(s): N18.4 - Chronic kidney disease, stage 4 (severe); D63.1 - Anemia in chronic kidney disease Is this a current diagnosis for this admission?: Yes - Plan Summary Summary: Patient will be admitted to the medical floor where she will receive routine supportive and symptomatic cares. She will receive IV fluids utilizing lactated Ringer's solution at 167 mL/h. She will receive morphine sulfate 2 to 4 mg IV every 2 hours as needed for pain control. She will receive Ativan 1 mg IV every 4 hours as needed for anxiety or restlessness. She will receive Thorazine 25 mg IV every 6 hours as needed for nausea and vomiting. Serial metabolic profiles as well as amylase and lipase testing will be performed. CBCs, magnesium levels and additional laboratory and/or radiographic evaluations will be obtained as needed. A noncontrast CT of the abdomen pelvis will be ordered in the ER before the patient comes to the floor. Blood pressure will be controlled with intravenous hydralazine and/or metoprolol as needed to maintain a systolic blood pressure less than 160 and/or diastolic blood pressure less than 100. Patient will be treated with a clear liquid diet until such time as she is able to tolerate a more advanced diet. - Time Time Spent with patient: 15-24 minutes Medications reviewed and adjusted accordingly: Yes Anticipated discharge: Home - Inpatient Certification Based on my medical assessment, after consideration of the patient's comorbidi ties, presenting symptoms, or acuity I expect that the services needed warrant INPATIENT care.: Yes I certify that my determination is in accordance with my understanding of Laura moe's requirements for reasonable and necessary INPATIENT services [42 CFR 412.3e].: Yes Medical Necessity: Significant Comorbidiites Make Outpatient Treatment Too Risky, Need For IV Fluids, Need for Pain Control, Risk of Complication if Not Cared For in Hospital
[2020-02-11] MEDS ORDERED: CHLORPROMAZINE HCL INJ 25 MG/1 ML AMPULE ONE (01:59)
[2020-02-11] MEDS: HEPARIN SOD (PORCINE) 5,000 UNIT/ML 1 ML VIAL SUBCUT SCH ×3 (05:48→21:11)
[2020-02-11 06:08] LABS: HEMATOCRIT 25.1 % (36.0-47.0); MEAN CORPUSCULAR HEMOGLOBIN 27.6 pg (27.0-33.4); MEAN CORPUSCULAR HGB CONC 31.3 g/dL (32.0-36.0); MEAN CORPUSCULAR VOLUME 88 fl (80-97); PLATELET COUNT 116 10^3/uL (150-450); RED BLOOD COUNT 2.84 10^6/uL (3.72-5.28); RED CELL DISTRIBUTION WIDTH 17.4 % (11.5-14.0); WHITE BLOOD COUNT 2.7 10^3/uL (4.0-10.5)
[2020-02-11 06:09] LABS: HEMOGLOBIN 7.9 g/dL (12.0-15.5)
[2020-02-11 06:44] LABS: AMYLASE 154 U/L (30-110); BLOOD UREA NITROGEN 23 mg/dL (7-20); CALCIUM 7.5 mg/dL (8.4-10.2); CARBON DIOXIDE 25 mmol/L (22-30); CHLORIDE 110 mmol/L (98-107); CHOLESTEROL 73.11 mg/dL (0-200); GLUCOSE 199 mg/dL (75-110); POTASSIUM 3.1 mmol/L (3.6-5.0); TRIGLYCERIDES 112 mg/dL (<150); VLDL CHOLESTEROL 22.4 mg/dL (10-31)
[2020-02-11 06:45] LABS: ANION GAP 5 (5-19)
[2020-02-11 07:02] LABS: DIRECT LDL < 30 mg/dL (<100)
[2020-02-11] MEDS: PANTOPRAZOLE SODIUM 40 MG VIAL IV SCH ×2 (09:11→21:12)
--- NOTE | 2020-02-11 11:18 | PDOC PROGRESS REPORT ---
Subjective Progress Note for:: 02/11/20 Subjective:: Patient reports the nausea and vomiting have improved last p.m. No further diarrhea since last p.m. Continues to complain of abdominal pain. Tolerating clear liquids. Reason For Visit: ACUTE PANCREATITIS Physical Exam Vital Signs: Temp Pulse Resp BP Pulse Ox 97.7 F 102 H 18 127/81 H 95 02/11/20 07:33 02/11/20 07:33 02/11/20 07:33 02/11/20 07:33 02/11/20 07:33 Intake & Output 02/10/20 02/11/20 02/12/20 06:59 06:59 06:59 Intake Total 2200 1000 Balance 2200 1000 Weight 64.3 kg General appearance: PRESENT: cooperative, mild distress, well-developed, well- nourished, other - 2/2 abdominal pain Head exam: PRESENT: atraumatic, normocephalic Eye exam: PRESENT: conjunctiva pink Mouth exam: PRESENT: moist, tongue midline Neck exam: PRESENT: full ROM, JVD Respiratory exam: PRESENT: clear to auscultation marianna, decreased breath sounds, symmetrical, unlabored, other - Air entry diminished at bases bilaterally. ABSENT: accessory muscle use Cardiovascular exam: PRESENT: RRR, +S1, +S2 Pulses: PRESENT: normal radial pulses Vascular exam: PRESENT: normal capillary refill GI/Abdominal exam: PRESENT: guarding, hypoactive bowel sounds, tenderness - Abdomen tender to palpation over left upper quadrant and epigastric area Rectal exam: PRESENT: deferred Extremities exam: PRESENT: full ROM. ABSENT: calf tenderness, pedal edema Musculoskeletal exam: PRESENT: full ROM Neurological exam: PRESENT: alert, awake, oriented to person, oriented to place, oriented to time, oriented to situation Psychiatric exam: PRESENT: normal mood. ABSENT: agitated, anxious Skin exam: PRESENT: dry, warm. ABSENT: jaundice Results Laboratory Results: 02/11/20 05:45 02/11/20 05:45 02/10/20 02/10/20 02/10/20 22:16 22:16 22:48 WBC 3.2 L RBC 3.48 L Hgb 9.8 L Hct 30.7 L MCV 88 MCH 28.1 MCHC 31.9 L RDW 17.7 H Plt Count 142 L Seg Neutrophils % 79.7 H Sodium 137.3 Potassium 3.5 L Chloride 104 Carbon Dioxide 24 Anion Gap 9 BUN 25 H Creatinine 1.82 H Est GFR ( Amer) 34 L Glucose 114 H Calcium 8.0 L Magnesium Total Bilirubin 0.6 AST 26 Alkaline Phosphatase 98 Total Protein 6.5 Albumin 3.0 L Triglycerides Cholesterol LDL Cholesterol Direct VLDL Cholesterol HDL Cholesterol Amylase Lipase 1005.2 H TSH Urine Color YELLOW Urine Appearance CLEAR Urine pH 6.0 Ur Specific [place] 1.010 Urine Protein 100 H Urine Glucose (UA) NEGATIVE Urine Ketones 20 H Urine Blood SMALL H Urine RBC (Auto) 1 02/11/20 02/11/20 02/11/20 05:45 05:45 05:45 WBC 2.7 L RBC 2.84 L Hgb 7.9 L Hct 25.1 L MCV 88 MCH 27.6 MCHC 31.3 L RDW 17.4 H Plt Count 116 L Seg Neutrophils % Sodium 139.2 Potassium 3.1 L Chloride 110 H Carbon Dioxide 25 Anion Gap 5 BUN 23 H Creatinine 1.60 H Est GFR ( Amer) 40 L Glucose 199 H Calcium 7.5 L Magnesium 1.7 Total Bilirubin AST Alkaline Phosphatase Total Protein Albumin Triglycerides 112 Cholesterol 73.11 LDL Cholesterol Direct < 30 VLDL Cholesterol 22.4 HDL Cholesterol 20 L Amylase 154 H Lipase 502.0 H TSH 2.31 Urine Color Urine Appearance Urine pH Ur Specific [place] Urine Protein Urine Glucose (UA) Urine Ketones Urine Blood Urine RBC (Auto) 02/10/20 22:16 Troponin I 0.019 Impressions: Abdomen Ultrasound 02/10/20 19:51 IMPRESSION: 1. Increased echogenicity of the right kidney consistent with medical renal disease. 2. Right-sided pleural effusion. 3. Liver is not well seen. No obvious abnormality. Abdomen/Pelvis CT 02/11/20 00:00 IMPRESSION: Suspect acute on chronic pancreatitis. Assessment and Plan - Diagnosis (1) Acute on chronic pancreatitis Is this a current diagnosis for this admission?: Yes Plan: Continues to have abdominal pain Lipase trending down Continue PRN analgesics Continue clear liquid diet Continue to monitor amylase/lipase Continue current IV fluids (2) Nausea and vomiting Is this a current diagnosis for this admission?: Yes Plan: Patient complains of only slight nausea without emesis this a.m. Continue PRN antiemetics (3) Diarrhea Qualifiers: Qualified Code(s): R19.7 - Diarrhea, unspecified Is this a current diagnosis for this admission?: Yes Plan: No further diarrhea since last p.m. (4) Kidney disease, chronic, stage IV (GFR 15-29 ml/min) Is this a current diagnosis for this admission?: Yes Plan: Patient's baseline creatinine appears to be approximately 1.3-1.6 Avoid nephrotoxins Monitor (5) Hypokalemia Is this a current diagnosis for this admission?: Yes Plan: Cautiously replete with IV potassium Monitor (6) Hyperglycemia Is this a current diagnosis for this admission?: Yes Plan: Check hemoglobin A1c in a.m. Add FS BS with SSI correction scale (7) Anemia of chronic disease Is this a current diagnosis for this admission?: Yes Plan: Likely a dilutional component No treatment indicated at this time Monitor (8) Thrombocytopenia Is this a current diagnosis for this admission?: Yes Plan: No signs of active hemorrhage No treatment indicated at this time Monitor (9) Leucopenia Is this a current diagnosis for this admission?: Yes Plan: Etiology unknown Afebrile and nontoxic in appearance Monitor - Plan Summary Summary: Continue PRN antiemetics and analgesics. Advance diet as tolerated once able to tolerate clears with no N/V and there is improvement in abdominal pain - Time Time Spent with patient: 25-34 minutes Anticipated discharge: Home
[2020-02-11] MEDS ORDERED: POTASSI CL 20 MEQ/50 ML RIDER 20 MEQ/50 ML RTUPB IV ONE (11:34)
[2020-02-11] MEDS ORDERED: DEXTROSE 50%-WATER 25 GM/50 ML DISP.SYRIN IV PRN ×2 (12:04)
[2020-02-11] MEDS ORDERED: GLUCAGON,HUMAN RECOMB 1 MG INJ IM PRN (12:04)
[2020-02-11] MEDS ORDERED: DEXTROSE 40% GEL 15 GM TUBE PO PRN ×2 (12:04)
[2020-02-11] MEDS: INSULIN LISPRO 100 UNIT/ML 3 ML VIAL SUBCUT SCH (12:21)
[2020-02-12] MEDS: HEPARIN SOD (PORCINE) 5,000 UNIT/ML 1 ML VIAL SUBCUT SCH ×3 (05:25→21:28)
[2020-02-12] MEDS: DEXTROSE 5%-LACTATED RINGERS 1,000 ML IV PRN ×3 (06:13→17:09)
[2020-02-12 06:19] LABS: HEMATOCRIT 25.7 % (36.0-47.0); HEMOGLOBIN 8.2 g/dL (12.0-15.5); MEAN CORPUSCULAR HEMOGLOBIN 27.9 pg (27.0-33.4); MEAN CORPUSCULAR HGB CONC 31.8 g/dL (32.0-36.0); MEAN CORPUSCULAR VOLUME 88 fl (80-97); PLATELET COUNT 102 10^3/uL (150-450); RED BLOOD COUNT 2.93 10^6/uL (3.72-5.28); RED CELL DISTRIBUTION WIDTH 16.7 % (11.5-14.0); WHITE BLOOD COUNT 2.4 10^3/uL (4.0-10.5)
[2020-02-12 06:41] LABS: AMYLASE 93 U/L (30-110); BLOOD UREA NITROGEN 16 mg/dL (7-20); CALCIUM 7.6 mg/dL (8.4-10.2); CARBON DIOXIDE 25 mmol/L (22-30); CHLORIDE 111 mmol/L (98-107); GLUCOSE 120 mg/dL (75-110); POTASSIUM 3.2 mmol/L (3.6-5.0)
[2020-02-12 06:42] LABS: ANION GAP 3 (5-19)
[2020-02-12] MEDS ORDERED: POTASSIUM CHLORIDE 10 MEQ TABLET.ER PO ONE (06:53)
[2020-02-12] MEDS ORDERED: POTASSI CL 20 MEQ/50 ML RIDER 20 MEQ/50 ML RTUPB IV ONE (06:53)
[2020-02-12] MEDS: INSULIN LISPRO 100 UNIT/ML 3 ML VIAL SUBCUT SCH (07:18)
--- NOTE | 2020-02-12 09:04 | PDOC PROGRESS REPORT ---
Subjective Progress Note for:: 02/12/20 Subjective:: Continues to complain of abdominal pain particularly in the epigastric area and upper left quadrant. Patient also reports poor appetite. Denies N/V/D. Reason For Visit: ACUTE PANCREATITIS Physical Exam Vital Signs: Temp Pulse Resp BP Pulse Ox 100.2 F 100 16 145/83 H 93 02/12/20 07:32 02/12/20 07:32 02/12/20 07:32 02/12/20 07:32 02/12/20 07:32 Intake & Output 02/11/20 02/12/20 02/13/20 06:59 06:59 06:59 Intake Total 2200 4790 Output Total 400 Balance 2200 4390 Weight 64.3 kg 67.8 kg General appearance: PRESENT: no acute distress, cooperative, well-developed, well-nourished Head exam: PRESENT: atraumatic, normocephalic Eye exam: PRESENT: conjunctiva pink Mouth exam: PRESENT: moist, tongue midline Neck exam: ABSENT: JVD Respiratory exam: PRESENT: clear to auscultation marianna, decreased breath sounds, symmetrical, unlabored, other - Entry diminished at bases bilaterally. ABSENT: accessory muscle use Cardiovascular exam: PRESENT: RRR, +S1, +S2 Pulses: PRESENT: normal radial pulses Vascular exam: PRESENT: normal capillary refill GI/Abdominal exam: PRESENT: guarding, hypoactive bowel sounds, soft, tenderness, other - Diffuse abdominal tenderness especially over epigastric area and LUQ. ABSENT: rebound Rectal exam: PRESENT: deferred Extremities exam: PRESENT: full ROM. ABSENT: calf tenderness Neurological exam: PRESENT: alert, awake, oriented to person, oriented to place, oriented to time, oriented to situation, CN II-XII grossly intact Psychiatric exam: PRESENT: appropriate affect, normal mood. ABSENT: agitated, anxious Skin exam: PRESENT: dry, normal color, warm Results Laboratory Results: 02/12/20 05:40 02/12/20 05:40 02/12/20 02/12/20 05:40 05:40 WBC 2.4 L RBC 2.93 L Hgb 8.2 L Hct 25.7 L MCV 88 MCH 27.9 MCHC 31.8 L RDW 16.7 H Plt Count 102 L Sodium 138.6 Potassium 3.2 L Chloride 111 H Carbon Dioxide 25 Anion Gap 3 L BUN 16 Creatinine 1.58 H Est GFR ( Amer) 40 L Glucose 120 H Calcium 7.6 L Magnesium 1.3 L Amylase 93 Lipase 322.6 H 02/10/20 22:16 Troponin I 0.019 Impressions: Abdomen Ultrasound 02/10/20 19:51 IMPRESSION: 1. Increased echogenicity of the right kidney consistent with medical renal disease. 2. Right-sided pleural effusion. 3. Liver is not well seen. No obvious abnormality. Abdomen/Pelvis CT 02/11/20 00:00 IMPRESSION: Suspect acute on chronic pancreatitis. Assessment and Plan - Diagnosis (1) Acute on chronic pancreatitis Is this a current diagnosis for this admission?: Yes Plan: Continues to have abdominal pain Lipase continues to trend down Continue PRN analgesics Continue clear liquid diet, we will not advance further at this time Continue to monitor lipase Continue current IV fluids (2) Nausea and vomiting Is this a current diagnosis for this admission?: Yes Plan: No further nausea or vomiting Continue PRN antiemetics (3) Diarrhea Qualifiers: Qualified Code(s): R19.7 - Diarrhea, unspecified Is this a current diagnosis for this admission?: Yes Plan: No further diarrhea (4) Kidney disease, chronic, stage IV (GFR 15-29 ml/min) Is this a current diagnosis for this admission?: Yes Plan: Patient's baseline creatinine appears to be approximately 1.3-1.6 Renal function at historical baseline Continue to avoid nephrotoxins Monitor (5) Hypokalemia Is this a current diagnosis for this admission?: Yes Plan: Minimal response to potassium repletion yesterday Cautiously replete with combination of IV and p.o. potassium chloride Monitor (6) Hypomagnesemia Is this a current diagnosis for this admission?: Yes Plan: Replete with magnesium sulfate 2 g IV today monitor (7) Hypocalcemia Is this a current diagnosis for this admission?: Yes Plan: Corrected calcium 8.4 based on most recent serum albumin Supplement with p.o. calcium carbonate (8) Hyperglycemia Is this a current diagnosis for this admission?: Yes Plan: Hemoglobin A1c 6.0 Patient has required some SSI Tinea FS BS with SSI correction scale (9) Anemia of chronic disease Is this a current diagnosis for this admission?: Yes Plan: H/H stable after initial drop which was likely dilutional Guaiac stool Patient will need outpatient follow-up and colonoscopy if she has not had one in the past 5 years Monitor (10) Thrombocytopenia Is this a current diagnosis for this admission?: Yes Plan: No signs of active hemorrhage or thrombosis Platelets continue to trend down but remains greater than 100 K Given high risk for DVT in the setting of acute pancreatitis we will continue heparin for DVT prophylaxis as long as platelet count remains greater than 100 K Monitor (11) Leucopenia Is this a current diagnosis for this admission?: Yes Plan: Possibly related to chronic pancreatitis Historically patient has had leucopenia on several occasions Patient has low-grade fever but remains nontoxic in appearance Monitor - Plan Summary Summary: Given patient's ongoing abdominal pain will hold on advancing diet at this time. Repeat electrolytes and monitor. Since lipase is trending down hopefully the patient's symptoms will improve over the next 24 hours allowing us to advance her diet and progress towards discharge.
[2020-02-12] MEDS: CALCIUM CARBONATE 600 MG TABLET PO SCH ×2 (09:26→17:08)
[2020-02-12] MEDS: SODIUM BICARBONATE 650 MG TABLET PO SCH (09:26)
[2020-02-12] MEDS: AMLODIPINE BESYLATE 10 MG TABLET PO SCH (09:26)
[2020-02-12] MEDS: MAGNESIUM SULFATE/D5W 1 GM/100 ML RTUPB IV SCH ×2 (09:27→10:34)
[2020-02-12] MEDS: PANTOPRAZOLE SODIUM 40 MG VIAL IV SCH ×2 (09:27→21:32)
[2020-02-12] MEDS: MORPHINE SULFATE 10 MG/ML INJ IV PRN ×2 (12:21→19:38)
[2020-02-12] MEDS ORDERED: CHLORPROMAZINE HCL INJ 25 MG/1 ML AMPULE IV PRN (16:00)
[2020-02-13] MEDS: DEXTROSE 5%-LACTATED RINGERS 1,000 ML IV PRN ×2 (02:50→23:48)
[2020-02-13] MEDS: HEPARIN SOD (PORCINE) 5,000 UNIT/ML 1 ML VIAL SUBCUT SCH ×3 (05:15→21:53)
[2020-02-13 09:11] LABS: HEMATOCRIT 27.2 % (36.0-47.0); HEMOGLOBIN 8.7 g/dL (12.0-15.5); MEAN CORPUSCULAR HEMOGLOBIN 27.9 pg (27.0-33.4); MEAN CORPUSCULAR VOLUME 87 fl (80-97); PLATELET COUNT 112 10^3/uL (150-450); RED BLOOD COUNT 3.11 10^6/uL (3.72-5.28); RED CELL DISTRIBUTION WIDTH 17.4 % (11.5-14.0); WHITE BLOOD COUNT 2.4 10^3/uL (4.0-10.5)
[2020-02-13] MEDS: INSULIN LISPRO 100 UNIT/ML 3 ML VIAL SUBCUT SCH (09:15)
[2020-02-13] MEDS: AMLODIPINE BESYLATE 10 MG TABLET PO SCH (09:18)
[2020-02-13] MEDS: SODIUM BICARBONATE 650 MG TABLET PO SCH (09:18)
[2020-02-13] MEDS: PANTOPRAZOLE SODIUM 40 MG VIAL IV SCH ×2 (09:18→21:58)
[2020-02-13] MEDS: CALCIUM CARBONATE 600 MG TABLET PO SCH ×2 (09:18→16:35)
[2020-02-13 09:35] LABS: AMYLASE 107 U/L (30-110); BLOOD UREA NITROGEN 12 mg/dL (7-20); CALCIUM 7.5 mg/dL (8.4-10.2); CARBON DIOXIDE 26 mmol/L (22-30); CHLORIDE 110 mmol/L (98-107); GLUCOSE 115 mg/dL (75-110); POTASSIUM 3.9 mmol/L (3.6-5.0)
[2020-02-13 10:15] LABS: ANION GAP 2 (5-19)
[2020-02-13] MEDS: MORPHINE SULFATE 10 MG/ML INJ IV PRN (10:49)
--- NOTE | 2020-02-13 13:40 | PDOC PROGRESS REPORT ---
Subjective Progress Note for:: 02/13/20 Subjective:: Patient continues to complain of abdominal pain which is similar in quality/intensity as yesterday Reason For Visit: ACUTE PANCREATITIS Physical Exam Vital Signs: Temp Pulse Resp BP Pulse Ox 99.9 F 123 H 16 125/83 95 02/13/20 07:42 02/13/20 07:42 02/13/20 07:42 02/13/20 07:42 02/13/20 07:42 Intake & Output 02/12/20 02/13/20 02/14/20 06:59 06:59 06:59 Intake Total 4790 2850 Output Total 400 Balance 4390 2850 Weight 67.8 kg 67.8 kg General appearance: PRESENT: no acute distress, cooperative, well-developed, well-nourished Head exam: PRESENT: atraumatic, normocephalic Eye exam: PRESENT: conjunctiva pink Mouth exam: PRESENT: moist, tongue midline Neck exam: PRESENT: full ROM. ABSENT: JVD Respiratory exam: PRESENT: clear to auscultation marianna, symmetrical. ABSENT: accessory muscle use Cardiovascular exam: PRESENT: RRR, +S1, +S2 Pulses: PRESENT: normal carotid pulses, normal radial pulses GI/Abdominal exam: PRESENT: guarding, hypoactive bowel sounds, soft, tenderness. ABSENT: rebound, rigid Rectal exam: PRESENT: deferred Extremities exam: PRESENT: full ROM, other - Trace pretibial edema bilaterally. ABSENT: calf tenderness Neurological exam: PRESENT: alert, awake, oriented to person, oriented to place, oriented to time, oriented to situation, CN II-XII grossly intact Psychiatric exam: PRESENT: appropriate affect, normal mood. ABSENT: agitated, anxious Skin exam: PRESENT: dry, intact, warm Results Laboratory Results: 02/13/20 09:00 02/13/20 09:00 02/13/20 02/13/20 09:00 09:00 WBC 2.4 L RBC 3.11 L Hgb 8.7 L Hct 27.2 L MCV 87 MCH 27.9 MCHC 32.0 RDW 17.4 H Plt Count 112 L Sodium 138.2 Potassium 3.9 Chloride 110 H Carbon Dioxide 26 Anion Gap 2 L BUN 12 Creatinine 1.67 H Est GFR ( Amer) 38 L Glucose 115 H Calcium 7.5 L Magnesium 1.6 Amylase 107 Lipase 224.6 02/10/20 22:16 Troponin I 0.019 Impressions: Abdomen Ultrasound 02/10/20 19:51 IMPRESSION: 1. Increased echogenicity of the right kidney consistent with medical renal disease. 2. Right-sided pleural effusion. 3. Liver is not well seen. No obvious abnormality. Abdomen/Pelvis CT 02/11/20 00:00 IMPRESSION: Suspect acute on chronic pancreatitis. Assessment and Plan - Diagnosis (1) Acute on chronic pancreatitis Is this a current diagnosis for this admission?: Yes Plan: Patient continues to have persistent abdominal pain Lipase now WNL Continue PRN analgesics Given ongoing abdominal pain we will not advance diet at this time Continue to monitor lipase Continue current IV fluids (2) Nausea and vomiting Is this a current diagnosis for this admission?: Yes Plan: No further nausea or vomiting Continue PRN antiemetics (3) Diarrhea Qualifiers: Qualified Code(s): R19.7 - Diarrhea, unspecified Is this a current diagnosis for this admission?: Yes Plan: No further diarrhea (4) Kidney disease, chronic, stage IV (GFR 15-29 ml/min) Is this a current diagnosis for this admission?: Yes Plan: Patient's baseline creatinine appears to be approximately 1.3-1.6 Renal function close to historical baseline Continue to avoid nephrotoxins Monitor (5) Hypokalemia Is this a current diagnosis for this admission?: Yes Plan: Serum potassium now WNL Continue to monitor (6) Hypomagnesemia Is this a current diagnosis for this admission?: Yes Plan: Serum magnesium now low normal Give magnesium oxide 800 mg p.o. x1 today Monitor periodically (7) Hypocalcemia Is this a current diagnosis for this admission?: Yes Plan: Corrected calcium remains low Continue p.o. calcium supplementation (8) Hyperglycemia Is this a current diagnosis for this admission?: Yes Plan: Hemoglobin A1c 6.0 Patient has required some SSI Continue FS BS with SSI correction scale (9) Anemia of chronic disease Is this a current diagnosis for this admission?: Yes Plan: H/H stable after initial drop which was likely dilutional Guaiac stool, none since ordered Patient will need outpatient follow-up and colonoscopy if she has not had one in the past 5 years Monitor (10) Thrombocytopenia Is this a current diagnosis for this admission?: Yes Plan: No signs of active hemorrhage or thrombosis Slight rebound and platelet count today Given high risk for DVT in the setting of acute pancreatitis we will continue heparin for DVT prophylaxis as long as platelet count remains greater than 100 K Monitor (11) Leucopenia Is this a current diagnosis for this admission?: Yes Plan: Possibly related to chronic pancreatitis Historically patient has had leucopenia on several occasions Patient continues to have low-grade fever but remains nontoxic in appearance Monitor - Plan Summary Summary: Given patient's ongoing abdominal pain will hold on advancing diet at this time. Since lipase is now WNL hopefully the patient's symptoms will improve over the next 24 hours allowing us to advance her diet and progress towards discharge. - Time Time Spent with patient: 25-34 minutes Medications reviewed and adjusted accordingly: Yes Anticipated discharge: Home
[2020-02-13] MEDS ORDERED: MAGNESIUM OXIDE 400 MG TABLET PO ONE (14:30)
[2020-02-13] MEDS ORDERED: MORPHINE SULFATE 10 MG/ML INJ IV PRN (15:00)
[2020-02-13] MEDS: ACETAMINOPHEN 325 MG TABLET PO PRN (19:49)
--- NOTE | 2020-02-13 20:59 | CDI QUERY ---
CDI Query CDI Review: Documentation in the Medical Record indicates this patient has been diagnosed as having: Anemia, leukopenia, thrombocytopenia. Based on your medical judgement, can you please provide in the Progress Notes a more specific diagnosis for the clinical findings below: WBC 3.2 2.7 2.4 2.4 Hgb 9.8 7.9 8.2 8.7 HCT 20.7 25.1 25.7 27.2 Plt 142 116 102 112 Based on your medical judgement, can you further clarify in the Progress Notes Pancytopenia due to medication (please specify) Pancytopenia due to another disease process (please specify) Pancytopenia due to unknown cause Unable to determine Thank you for your consideration. ARAVIND Stevens RN Clinical Head Orthopedic Team Physician Physician Advisor
[2020-02-14] MEDS: HEPARIN SOD (PORCINE) 5,000 UNIT/ML 1 ML VIAL SUBCUT SCH ×3 (05:05→21:33)
[2020-02-14] MEDS: DEXTROSE 5%-LACTATED RINGERS 1,000 ML IV PRN ×3 (06:31→18:44)
[2020-02-14] MEDS: CALCIUM CARBONATE 600 MG TABLET PO SCH ×2 (07:46→17:29)
[2020-02-14] MEDS: INSULIN LISPRO 100 UNIT/ML 3 ML VIAL SUBCUT SCH (07:56)
[2020-02-14 08:55] LABS: HEMATOCRIT 26.2 % (36.0-47.0); HEMOGLOBIN 8.3 g/dL (12.0-15.5); MEAN CORPUSCULAR HEMOGLOBIN 27.8 pg (27.0-33.4); MEAN CORPUSCULAR HGB CONC 31.4 g/dL (32.0-36.0); MEAN CORPUSCULAR VOLUME 88 fl (80-97); PLATELET COUNT 111 10^3/uL (150-450); RED BLOOD COUNT 2.97 10^6/uL (3.72-5.28); WHITE BLOOD COUNT 2.4 10^3/uL (4.0-10.5)
[2020-02-14 09:39] LABS: ALBUMIN 1.8 g/dL (3.5-5.0); ALKALINE PHOSPHATASE 66 U/L (38-126); ASPARTATE AMINO TRANSFERASE 27 U/L (14-36); BILIRUBIN,TOTAL 0.4 mg/dL (0.2-1.3); BLOOD UREA NITROGEN 14 mg/dL (7-20); CALCIUM 7.4 mg/dL (8.4-10.2); GLUCOSE 151 mg/dL (75-110); POTASSIUM 4.3 mmol/L (3.6-5.0); TOTAL PROTEIN 4.7 g/dL (6.3-8.2)
[2020-02-14 09:44] LABS: CARBON DIOXIDE 27 mmol/L (22-30); CHLORIDE 110 mmol/L (98-107)
[2020-02-14 10:03] LABS: ANION GAP 1 (5-19)
[2020-02-14] MEDS: PANTOPRAZOLE SODIUM 40 MG VIAL IV SCH ×2 (10:04→21:29)
[2020-02-14] MEDS: SODIUM BICARBONATE 650 MG TABLET PO SCH (10:05)
[2020-02-14] MEDS: AMLODIPINE BESYLATE 10 MG TABLET PO SCH (10:05)
[2020-02-14] MEDS ORDERED: CARBOXYMETHYLCELLULOSE SODIUM OU PRN (10:40)
[2020-02-14] MEDS ORDERED: ALBUTEROL SULFATE 0.083% NEB 2.5 MG/3 ML AMPUL NEB PRN (10:43)
[2020-02-14] MEDS ORDERED: CARBOXYMETHYLCELLULOSE SOD 0.5% 0.4 ML DROPERETTE OU PRN (10:55)
--- NOTE | 2020-02-14 11:56 | RADIOLOGY REPORT (SQ) ---
EXAM DESCRIPTION: CHEST SINGLE VIEW IMAGES COMPLETED DATE/TIME: 02/14/2020 11:36 am REASON FOR STUDY: dyspnea, cough COMPARISON: 01/21/2020 NUMBER OF VIEWS: One view. TECHNIQUE: Single frontal radiographic image of the chest acquired. LIMITATIONS: None. FINDINGS: LUNGS AND PLEURA: Increasing airspace opacity in the right upper lobe. Chronic pleural ef fusion. Left lung is clear. MEDIASTINUM AND HEART: Stable heart size and mediastinal structures. SUPPORT DEVICES: Appropriate location without change. BONY STRUCTURES: No acute findings. HARDWARE: None. OTHER: No other significant finding. IMPRESSION: Increasing right upper lobe airspace disease. In the appropriate clinical setting this is consistent with pneumonia. Reading location - IP/workstation name: [email or web address]
[2020-02-14] MEDS: IPRATROPIUM/ALBUTEROL 0.5-2.5 MG/3 ML AMPUL NEB SCH ×2 (14:21→20:28)
[2020-02-14] MEDS: NYSTATIN 500000 UNIT/5 ML UDCUP PO SCH ×2 (15:07→17:29)
[2020-02-14] MEDS: PREDNISONE 20 MG TABLET PO SCH (15:09)
--- NOTE | 2020-02-14 19:36 | PDOC PROGRESS REPORT ---
Subjective Progress Note for:: 02/14/20 Subjective:: The patient was seen on morning rounds. She is found resting in bed, comfortably, on supplemental oxygen via nasal cannula. She is not home O2 dependent.. She is noted to have increased work of breathing and borderline tachypnea. Patient reports generalized chest discomfort; worsened with deep inspiration and cough. She is noted to have a wet sounding cough but denies sputum production. She reports that she has had chest discomfort with dyspnea at rest since prior to her admission. She states that she noted the symptoms shortly after her discharge from [facility]; was there recently for esophageal dilatation. She denies fever, palpitations, orthopnea, abdominal pain, nausea vomiting and diarrhea. She is noted to have low-grade temperature (, Comfortably, 99.4; T-max 101.2 overnight), tachycardia and hypoxia on room air. She has no other questions or concerns at this time. No concerns per nursing Reason For Visit: ACUTE PANCREATITIS Physical Exam Vital Signs: Temp Pulse Resp BP Pulse Ox 99.4 F 113 H 20 123/66 93 02/14/20 15:31 02/14/20 15:31 02/14/20 15:31 02/14/20 15:31 02/14/20 15:31 Intake & Output 02/13/20 02/14/20 02/15/20 06:59 06:59 06:59 Intake Total 2850 3160 2350 Output Total 900 600 Balance 2850 2260 1750 Weight 67.8 kg 67.8 kg 69.1 kg General appearance: PRESENT: no acute distress, cooperative, thin, well- developed Head exam: PRESENT: atraumatic, normocephalic Eye exam: PRESENT: conjunctiva pink, EOMI, PERRLA. ABSENT: scleral icterus Mouth exam: PRESENT: moist, tongue midline Respiratory exam: PRESENT: accessory muscle use, rhonchi - Throughout, symmetrical, tachypnea, wheezes - Throat, other - Supplemental oxygen by nasal cannula. ABSENT: rales Cardiovascular exam: PRESENT: RRR, tachycardia. ABSENT: diastolic murmur, rubs, systolic murmur Pulses: PRESENT: normal dorsalis pedis pul Vascular exam: PRESENT: normal capillary refill GI/Abdominal exam: PRESENT: normal bowel sounds, soft, tenderness. ABSENT: distended, guarding, mass, organolmegaly, rebound Rectal exam: PRESENT: deferred Extremities exam: PRESENT: full ROM. ABSENT: calf tenderness, clubbing, pedal edema Neurological exam: PRESENT: alert, awake, oriented to person, oriented to place, oriented to time, oriented to situation, CN II-XII grossly intact. ABSENT: motor sensory deficit Psychiatric exam: PRESENT: appropriate affect, normal mood. ABSENT: homicidal ideation, suicidal ideation Skin exam: PRESENT: dry, intact, warm. ABSENT: cyanosis, rash Results Laboratory Results: 02/14/20 08:06 02/14/20 08:06 02/14/20 02/14/20 08:06 08:06 WBC 2.4 L RBC 2.97 L Hgb 8.3 L Hct 26.2 L MCV 88 MCH 27.8 MCHC 31.4 L RDW 18.0 H Plt Count 111 L Sodium 138.2 Potassium 4.3 Chloride 110 H Carbon Dioxide 27 Anion Gap 1 L BUN 14 Creatinine 1.73 H Est GFR ( Amer) 36 L Glucose 151 H Calcium 7.4 L Magnesium 1.6 Total Bilirubin 0.4 AST 27 Alkaline Phosphatase 66 Total Protein 4.7 L Albumin 1.8 L Lipase 165.8 02/10/20 22:16 Troponin I 0.019 Impressions: Abdomen Ultrasound 02/10/20 19:51 IMPRESSION: 1. Increased echogenicity of the right kidney consistent with medical renal disease. 2. Right-sided pleural effusion. 3. Liver is not well seen. No obvious abnormality. Abdomen/Pelvis CT 02/11/20 00:00 IMPRESSION: Suspect acute on chronic pancreatitis. Chest X-Ray 02/14/20 00:00 IMPRESSION: Increasing right upper lobe airspace disease. In the appropriate clinical setting this is consistent with pneumonia. Assessment and Plan - Diagnosis (1) Pneumonia Qualifiers: Pneumonia type: due to unspecified organism Laterality: right Lung location: upper lobe of lung Qualified Code(s): J18.9 - Pneumonia, unspecified organism Is this a current diagnosis for this admission?: Yes Plan: Although the patient has pneumonia symptoms developed within 48 hours of her admission, she was recently admitted to [facility]. Therefore, will cover for healthcare associated pneumonia. CXR today shows a right upper lobe pneumonia. She is noted to have pancytopenia and T-max 101.2/24 hours. Blood and sputum cultures are pending. Rapid COVID negative. She is empirically placed on IV Zosyn and Levaquin (risk for gram-negative infection related to structural lung changes; partial lobectomy) Supplemental oxygen as needed to maintain saturations greater than 89%. Start scheduled and as needed nebulizer treatments. p.o. Prednisone for wheezing throughout Mucinex twice daily. Robitussin as needed. Incentive spirometer and flutter valve to bedside. (2) Acute on chronic pancreatitis Is this a current diagnosis for this admission?: Yes Plan: Patient denies abdominal pain, nausea vomiting, diarrhea. Lipase now WNL We will advance to a soft, low residue diet. Continue gentle IV fluids. She has not required PRN analgesics x24 hours; will de-escalate protocol. (3) Pancytopenia Is this a current diagnosis for this admission?: Yes Plan: Followed by Dr. Kwan as outpatient. Multifactorial. Patient w/ history of lung Ca, chronic pancreatitis w/ resultant chronic malnutrition, and CKD. Certainly worsened by acute infectious process (RUL PNA). Cultures and antibiotics as above. Low threshold for Heme/Onc consultation. (4) Anemia of chronic disease Is this a current diagnosis for this admission?: Yes Plan: H/H stable after initial drop which was likely dilutional Guaiac stool, none since ordered Patient will need outpatient follow-up and colonoscopy if she has not had one in the past [address] Kwan as outpatient; follow up as scheduled. Consider inpatient consultation if worsens. Monitor (5) Hyperglycemia Is this a current diagnosis for this admission?: Yes Plan: Hemoglobin A1c 6.0 Patient has required some SSI; possibly related to the patient's IV fluids (D5 LR). IV fluids have been changed to NS. Now on p.o. Prednisone. Continue FS BS with SSI correction scale (6) Kidney disease, chronic, stage IV (GFR 15-29 ml/min) Is this a current diagnosis for this admission?: Yes Plan: Patient's baseline creatinine appears to be approximately 1.3-1.6 Renal function close to historical baseline Continue gentle IVF. Continue to avoid nephrotoxins Monitor (7) Nausea and vomiting Is this a current diagnosis for this admission?: Yes Plan: Resolved. Continue PRN antiemetics (8) Diarrhea Qualifiers: Qualified Code(s): R19.7 - Diarrhea, unspecified Is this a current diagnosis for this admission?: Yes Plan: Resolved. (9) Hypokalemia Is this a current diagnosis for this admission?: Yes Plan: Replete. (10) Hypomagnesemia Is this a current diagnosis for this admission?: Yes Plan: Serum magnesium now normal Monitor periodically
[2020-02-14] MEDS ORDERED: LEVOFLOXACIN 750 MG/D5W RTU 750 MG/150 ML RTUPB IV SCH (20:00)
[2020-02-14] MEDS ORDERED: CEFTRIAXONE 1 GM/D5W RTU 1 GM/50 ML RTUPB IV SCH (20:00)
[2020-02-14] MEDS ORDERED: AZITHROMYCIN 500 MG in DEXTROSE 5%-WATER 250 ML IV SCH (21:00)
[2020-02-14] MEDS: ACETAMINOPHEN 325 MG TABLET PO PRN (21:32)
[2020-02-14] MEDS: PIPERACILLIN SODIUM/TAZOBACTAM 3.375 GM in NORMAL SALINE 100 ML IV SCH (21:51)
[2020-02-15] MEDS: NYSTATIN 500000 UNIT/5 ML UDCUP PO SCH ×5 (01:08→23:07)
[2020-02-15] MEDS: IPRATROPIUM/ALBUTEROL 0.5-2.5 MG/3 ML AMPUL NEB SCH ×4 (02:13→19:47)
[2020-02-15] MEDS: PIPERACILLIN SODIUM/TAZOBACTAM 3.375 GM in NORMAL SALINE 100 ML IV SCH ×4 (02:15→21:03)
[2020-02-15] MEDS: HEPARIN SOD (PORCINE) 5,000 UNIT/ML 1 ML VIAL SUBCUT SCH ×3 (05:41→21:04)
[2020-02-15] MEDS: NORMAL SALINE 1000 ML 1,000 ML IV PRN ×2 (05:43→19:45)
[2020-02-15 06:55] LABS: ABSOLUTE LYMPHOCYTES (AUTO) 0.3 10^3/uL (0.5-4.7); ABSOLUTE MONOCYTES (AUTO) 0.1 10^3/uL (0.1-1.4); ABSOLUTE NEUT (AUTO) 2.1 10^3/uL (1.7-8.2); BASOPHILS % (AUTO) 0.7 % (0-2); HEMATOCRIT 22.9 % (36.0-47.0); LYMPHOCYTES % (AUTO) 11.9 % (13-45); MEAN CORPUSCULAR HEMOGLOBIN 27.9 pg (27.0-33.4); MEAN CORPUSCULAR HGB CONC 31.6 g/dL (32.0-36.0); MEAN CORPUSCULAR VOLUME 88 fl (80-97); MONOCYTES % (AUTO) 2.4 % (3-13); RED BLOOD COUNT 2.59 10^6/uL (3.72-5.28); RED CELL DISTRIBUTION WIDTH 17.8 % (11.5-14.0); TOTAL CELLS COUNTED % (AUTO) 100 %; WHITE BLOOD COUNT 2.5 10^3/uL (4.0-10.5)
[2020-02-15 07:04] LABS: ANION GAP 6 (5-19); BLOOD UREA NITROGEN 14 mg/dL (7-20); CALCIUM 7.6 mg/dL (8.4-10.2); CARBON DIOXIDE 22 mmol/L (22-30); CHLORIDE 111 mmol/L (98-107); GLUCOSE 272 mg/dL (75-110); POTASSIUM 3.6 mmol/L (3.6-5.0)
[2020-02-15 07:18] LABS: PLATELET COUNT 107 10^3/uL (150-450)
[2020-02-15 07:19] LABS: HEMOGLOBIN 7.2 g/dL (12.0-15.5)
[2020-02-15] MEDS: INSULIN LISPRO 100 UNIT/ML 3 ML VIAL SUBCUT SCH (07:48)
[2020-02-15] MEDS: CALCIUM CARBONATE 600 MG TABLET PO SCH ×2 (07:49→16:33)
[2020-02-15] MEDS: PREDNISONE 20 MG TABLET PO SCH (09:55)
[2020-02-15] MEDS: AMLODIPINE BESYLATE 10 MG TABLET PO SCH (09:55)
[2020-02-15] MEDS: CALCITRIOL 0.25 MCG CAPSULE PO SCH (09:55)
[2020-02-15] MEDS: SODIUM BICARBONATE 650 MG TABLET PO SCH (09:55)
[2020-02-15] MEDS: PANTOPRAZOLE SODIUM 40 MG VIAL IV SCH ×2 (09:57→21:04)
[2020-02-15] MEDS ORDERED: LEVOFLOXACIN 750 MG/D5W RTU 750 MG/150 ML RTUPB IV SCH (10:00)
[2020-02-15] MEDS ORDERED: (PENDING PHARMACY ID) (Calcitriol [Rocaltrol 0.5 Mcg Capsule] 0.5 MCG) PO SCH (10:00)
[2020-02-15 10:26] LABS: ABSOLUTE LYMPHOCYTES (AUTO) 0.3 10^3/uL (0.5-4.7); ABSOLUTE MONOCYTES (AUTO) 0.1 10^3/uL (0.1-1.4); ABSOLUTE NEUT (AUTO) 2.7 10^3/uL (1.7-8.2); BASOPHILS % (AUTO) 0.3 % (0-2); HEMATOCRIT 24.4 % (36.0-47.0); LYMPHOCYTES % (AUTO) 9.3 % (13-45); MEAN CORPUSCULAR HEMOGLOBIN 27.6 pg (27.0-33.4); MEAN CORPUSCULAR HGB CONC 31.7 g/dL (32.0-36.0); MEAN CORPUSCULAR VOLUME 87 fl (80-97); MONOCYTES % (AUTO) 2.3 % (3-13); PLATELET COUNT 119 10^3/uL (150-450); RED CELL DISTRIBUTION WIDTH 17.3 % (11.5-14.0); SEGMENTED NEUTROPHILS % (AUTO) 88.1 % (42-78); TOTAL CELLS COUNTED % (AUTO) 100 %; WHITE BLOOD COUNT 3.1 10^3/uL (4.0-10.5)
[2020-02-15 10:33] LABS: HEMOGLOBIN 7.7 g/dL (12.0-15.5)
[2020-02-15] MEDS: ACETAMINOPHEN 325 MG TABLET PO PRN ×3 (10:37→23:07)
[2020-02-15] MEDS ORDERED: FUROSEMIDE INJ/PF 20 MG/2 ML SDV IV PRN (11:04)
[2020-02-15] MEDS ORDERED: NORMAL SALINE 250 ML IV PRN ×2 (11:04)
[2020-02-15] MEDS: OXYCODONE-ACETAMINOPHEN 5-325 MG TABLET PO PRN (16:33)
--- NOTE | 2020-02-15 18:19 | PDOC PROGRESS REPORT ---
Subjective Progress Note for:: 02/15/20 Subjective:: The patient was seen on morning rounds. She is found resting in bed, comfortably, on supplemental oxygen via nasal cannula. She is not home O2 dependent. She denies dyspnea, orthopnea, cough today. She reports that her respiratory symptoms have improved. Today she complains of epigastric abdominal discomfort without nausea or vomiting. She asks to have medication stronger than Tylenol available to her. She is toleratingA soft, low residue diet; though with poor appetite. She denies fever, palpitations, orthopnea, abdominal pain, nausea vomiting and diarrhea. She has no other questions or concerns at this time. No concerns per nursing Reason For Visit: ACUTE PANCREATITIS Physical Exam Vital Signs: Temp Pulse Resp BP Pulse Ox 97.5 F 83 16 122/68 94 02/15/20 17:59 02/15/20 17:59 02/15/20 17:59 02/15/20 17:59 02/15/20 17:59 Intake & Output 02/14/20 02/15/20 02/16/20 06:59 06:59 06:59 Intake Total 3160 2960 1638 Output Total 900 800 Balance 2260 2160 1638 Weight 67.8 kg 67.8 kg General appearance: PRESENT: no acute distress, cooperative, thin, well- developed Head exam: PRESENT: atraumatic, normocephalic Eye exam: PRESENT: conjunctiva pink, EOMI, PERRLA. ABSENT: scleral icterus Mouth exam: PRESENT: moist, tongue midline Respiratory exam: PRESENT: clear to auscultation marianna, symmetrical, unlabored, other - Supplemental oxygen via nasal cannula. ABSENT: rales, rhonchi, wheezes Cardiovascular exam: PRESENT: RRR. ABSENT: diastolic murmur, rubs, systolic mu rmur Pulses: PRESENT: normal dorsalis pedis pul Vascular exam: PRESENT: normal capillary refill GI/Abdominal exam: PRESENT: normal bowel sounds, soft, tenderness. ABSENT: distended, guarding, mass, organolmegaly, rebound Rectal exam: PRESENT: deferred Extremities exam: PRESENT: full ROM. ABSENT: calf tenderness, clubbing, pedal edema Neurological exam: PRESENT: alert, awake, oriented to person, oriented to place, oriented to time, oriented to situation, CN II-XII grossly intact. ABSENT: motor sensory deficit Psychiatric exam: PRESENT: appropriate affect, normal mood. ABSENT: homicidal ideation, suicidal ideation Skin exam: PRESENT: dry, intact, warm. ABSENT: cyanosis, rash Results Laboratory Results: 02/15/20 10:05 02/15/20 06:36 02/15/20 02/15/20 02/15/20 06:36 06:36 10:05 WBC 2.5 L 3.1 L RBC 2.59 L 2.80 L Hgb 7.2 L 7.7 L Hct 22.9 L 24.4 L MCV 88 87 MCH 27.9 27.6 MCHC 31.6 L 31.7 L RDW 17.8 H 17.3 H Plt Count 107 L 119 L Seg Neutrophils % 85.0 H 88.1 H Sodium 138.9 Potassium 3.6 Chloride 111 H Carbon Dioxide 22 Anion Gap 6 BUN 14 Creatinine 1.70 H Est GFR ( Amer) 37 L Glucose 272 H Calcium 7.6 L Blood Type Antibody Screen 02/15/20 11:24 WBC RBC Hgb Hct MCV MCH MCHC RDW Plt Count Seg Neutrophils % Sodium Potassium Chloride Carbon Dioxide Anion Gap BUN Creatinine Est GFR ( Amer) Glucose Calcium Blood Type O POSITIVE Antibody Screen NEGATIVE 02/10/20 22:16 Troponin I 0.019 Impressions: Abdomen Ultrasound 02/10/20 19:51 IMPRESSION: 1. Increased echogenicity of the right kidney consistent with medical renal disease. 2. Right-sided pleural effusion. 3. Liver is not well seen. No obvious abnormality. Abdomen/Pelvis CT 02/11/20 00:00 IMPRESSION: Suspect acute on chronic pancreatitis. Chest X-Ray 02/14/20 00:00 IMPRESSION: Increasing right upper lobe airspace disease. In the appropriate clinical setting this is consistent with pneumonia. Assessment and Plan - Diagnosis (1) Pneumonia Qualifiers: Pneumonia type: due to unspecified organism Laterality: right Lung location: upper lobe of lung Qualified Code(s): J18.9 - Pneumonia, unspecified organism Is this a current diagnosis for this admission?: Yes Plan: Although the patient has pneumonia symptoms developed within 48 hours of her admission, she was recently admitted to [facility]. Therefore, will cover for healthcare associated pneumonia. CXR showed a right upper lobe pneumonia. She is noted to have pancytopenia and T-max 101.2/48 hours. Blood and sputum cultures are pending. Rapid COVID negative. She is empirically placed on IV Zosyn and Levaquin (risk for gram-negative infection related to structural lung changes; partial lobectomy) Supplemental oxygen as needed to maintain saturations greater than 89%. Start scheduled and as needed nebulizer treatments. p.o. Prednisone for wheezing throughout Mucinex twice daily. Robitussin as needed. Incentive spirometer and flutter valve to bedside. (2) Acute on chronic pancreatitis Is this a current diagnosis for this admission?: Yes Plan: Patient denies abdominal pain, nausea vomiting, diarrhea. Lipase now WNL We will advance to a soft, low residue diet. Continue gentle IV fluids; rate is decreased today. Continue analgesics and antiemetics as needed. (3) Pancytopenia Is this a current diagnosis for this admission?: Yes Plan: Followed by Dr. Kwan as outpatient. Multifactorial. Patient w/ history of lung Ca, chronic pancreatitis w/ resultant chronic malnutrition, and CKD. Certainly worsened by acute infectious process (RUL PNA). Cultures and antibiotics as above. Plan the patient established sports management professor, Dr. Kwan, daily. Dr. Kwan reports that the patient has chronic pancytopenia. Her current WBC and platelet count are within her normal range. He does advised that her hemoglobin is slightly lower than his preference. Recommend 2 units PRBC. Close outpatient follow-up. (4) Anemia of chronic disease Is this a current diagnosis for this admission?: Yes Plan: H/H trending down; in part dilution. Guaiac stool, none since ordered Patient will need outpatient follow-up and colonoscopy if she has not had one in the past [address] Kwan as outpatient; follow up as scheduled. We will transfuse 2 units PRBC. Discussed with Dr. Kwan today; low threshold for consultation. Monitor daily CBC (5) Hyperglycemia Is this a current diagnosis for this admission?: Yes Plan: Hemoglobin A1c 6.0 Patient has required some SSI; possibly related to the patient's IV fluids (D5 LR). IV fluids have been changed to NS. Now on p.o. Prednisone. Continue FS BS with SSI correction scale (6) Kidney disease, chronic, stage IV (GFR 15-29 ml/min) Is this a current diagnosis for this admission?: Yes Plan: Resolved; at baseline. Continue gentle IVF. Continue to avoid nephrotoxins Monitor (7) Nausea and vomiting Is this a current diagnosis for this admission?: Yes Plan: Resolved. Continue PRN antiemetics (8) Diarrhea Qualifiers: Qualified Code(s): R19.7 - Diarrhea, unspecified Is this a current diagnosis for this admission?: Yes Plan: Resolved. (9) Hypokalemia Is this a current diagnosis for this admission?: Yes Plan: Replete. (10) Hypomagnesemia Is this a current diagnosis for this admission?: Yes Plan: Serum magnesium now normal Monitor periodically - Time Time Spent with patient: 35 or more minutes Medications reviewed and adjusted accordingly: Yes Anticipated discharge: Home Within: within 72 hours
[2020-02-15] MEDS ORDERED: DEXTROSE 5%-LACTATED RINGERS 1,000 ML IV PRN (20:45)
[2020-02-15 21:44] LABS: ABSOLUTE LYMPHOCYTES (AUTO) 0.4 10^3/uL (0.5-4.7); ABSOLUTE MONOCYTES (AUTO) 0.2 10^3/uL (0.1-1.4); ABSOLUTE NEUT (AUTO) 6.3 10^3/uL (1.7-8.2); BASOPHILS % (AUTO) 0.2 % (0-2); HEMATOCRIT 30.8 % (36.0-47.0); LYMPHOCYTES % (AUTO) 5.8 % (13-45); MEAN CORPUSCULAR HEMOGLOBIN 28.3 pg (27.0-33.4); MEAN CORPUSCULAR VOLUME 86 fl (80-97); MONOCYTES % (AUTO) 2.3 % (3-13); PLATELET COUNT 103 10^3/uL (150-450); RED BLOOD COUNT 3.59 10^6/uL (3.72-5.28); RED CELL DISTRIBUTION WIDTH 16.6 % (11.5-14.0); SEGMENTED NEUTROPHILS % (AUTO) 91.7 % (42-78); TOTAL CELLS COUNTED % (AUTO) 100 %
[2020-02-15 21:46] LABS: HEMOGLOBIN 10.2 g/dL (12.0-15.5); WHITE BLOOD COUNT 6.9 10^3/uL (4.0-10.5)
[2020-02-16] MEDS: IPRATROPIUM/ALBUTEROL 0.5-2.5 MG/3 ML AMPUL NEB SCH ×3 (02:20→21:09)
[2020-02-16] MEDS: PIPERACILLIN SODIUM/TAZOBACTAM 3.375 GM in NORMAL SALINE 100 ML IV SCH ×2 (02:52→09:35)
[2020-02-16] MEDS: HEPARIN SOD (PORCINE) 5,000 UNIT/ML 1 ML VIAL SUBCUT SCH ×3 (05:18→21:31)
[2020-02-16] MEDS: NYSTATIN 500000 UNIT/5 ML UDCUP PO SCH ×4 (05:20→23:06)
[2020-02-16 06:44] LABS: HEMATOCRIT 32.5 % (36.0-47.0); HEMOGLOBIN 10.8 g/dL (12.0-15.5); MEAN CORPUSCULAR HEMOGLOBIN 28.3 pg (27.0-33.4); MEAN CORPUSCULAR HGB CONC 33.1 g/dL (32.0-36.0); MEAN CORPUSCULAR VOLUME 86 fl (80-97); PLATELET COUNT 115 10^3/uL (150-450); RED CELL DISTRIBUTION WIDTH 16.9 % (11.5-14.0); WHITE BLOOD COUNT 7.8 10^3/uL (4.0-10.5)
[2020-02-16 07:09] LABS: ANION GAP 7 (5-19); BLOOD UREA NITROGEN 15 mg/dL (7-20); CALCIUM 7.9 mg/dL (8.4-10.2); CARBON DIOXIDE 22 mmol/L (22-30); CHLORIDE 113 mmol/L (98-107); GLUCOSE 224 mg/dL (75-110); POTASSIUM 3.6 mmol/L (3.6-5.0)
[2020-02-16] MEDS: INSULIN LISPRO 100 UNIT/ML 3 ML VIAL SUBCUT SCH (08:08)
[2020-02-16] MEDS: CALCIUM CARBONATE 600 MG TABLET PO SCH ×2 (08:09→16:21)
[2020-02-16] MEDS: PANTOPRAZOLE SODIUM 40 MG VIAL IV SCH ×2 (09:35→21:21)
[2020-02-16] MEDS: CALCITRIOL 0.25 MCG CAPSULE PO SCH (09:36)
[2020-02-16] MEDS: SODIUM BICARBONATE 650 MG TABLET PO SCH (09:36)
[2020-02-16] MEDS: PREDNISONE 20 MG TABLET PO SCH (09:37)
[2020-02-16] MEDS: AMLODIPINE BESYLATE 10 MG TABLET PO SCH (09:37)
[2020-02-16] MEDS: DEXTROSE 5%-LACTATED RINGERS 1,000 ML IV PRN (09:37)
[2020-02-16] MEDS: OXYCODONE-ACETAMINOPHEN 5-325 MG TABLET PO PRN ×3 (11:58→23:51)
[2020-02-16] MEDS ORDERED: LEVOFLOXACIN 750 MG TABLET PO ONE (12:58)
[2020-02-16] MEDS: LIPASE/PROTEASE/AMYLASE 1 CAP CAPSULE.DR PO SCH (16:21)
--- NOTE | 2020-02-16 19:32 | PDOC PROGRESS REPORT ---
Subjective Progress Note for:: 02/16/20 Subjective:: The patient was seen on morning rounds. She is found resting in bed, comfortably, on supplemental oxygen via nasal cannula. She is not home O2 dependent. She denies dyspnea, orthopnea, and cough today. She reports that her respiratory symptoms have resolved. Today she complains of epigastric abdominal discomfort without nausea or vomiting; though also improved. Continues to have a poor appetite. She denies fever, palpitations, orthopnea, abdominal pain, nausea, vomiting, and diarrhea. She has no other questions or concerns at this time. No concerns per nursing Reason For Visit: ACUTE PANCREATITIS Physical Exam Vital Signs: Temp Pulse Resp BP Pulse Ox 97.5 F 91 17 126/62 H 91 L 02/16/20 16:18 02/16/20 16:18 02/16/20 16:18 02/16/20 16:18 02/16/20 16:18 Intake & Output 02/15/20 02/16/20 02/17/20 06:59 06:59 06:59 Intake Total 2960 3616 2456 Output Total 800 2200 Balance 2160 1416 2456 Weight 67.8 kg 67.8 kg General appearance: PRESENT: no acute distress, cooperative, thin, well-developed Head exam: PRESENT: atraumatic, normocephalic Eye exam: PRESENT: conjunctiva pink, EOMI, PERRLA. ABSENT: scleral icterus Mouth exam: PRESENT: moist, tongue midline Respiratory exam: PRESENT: clear to auscultation marianna, symmetrical, unlabored. ABSENT: rales, rhonchi, wheezes Cardiovascular exam: PRESENT: RRR, +S1, +S2. ABSENT: diastolic murmur, rubs, systolic murmur Vascular exam: PRESENT: normal capillary refill GI/Abdominal exam: PRESENT: normal bowel sounds, soft, tenderness. ABSENT: distended, guarding, mass, organolmegaly, rebound Rectal exam: PRESENT: deferred Extremities exam: PRESENT: full ROM. ABSENT: calf tenderness, clubbing, pedal edema Neurological exam: PRESENT: alert, awake, oriented to person, oriented to place, oriented to time, oriented to situation, CN II-XII grossly intact. ABSENT: motor sensory deficit Psychiatric exam: PRESENT: appropriate affect, normal mood. ABSENT: homicidal ideation, suicidal ideation Skin exam: PRESENT: dry, intact, warm. ABSENT: cyanosis, rash Results Laboratory Results: 02/16/20 05:50 02/16/20 05:50 02/15/20 02/16/20 02/16/20 21:27 05:50 05:50 WBC 6.9 D 7.8 RBC 3.59 L 3.80 Hgb 10.2 L D 10.8 L Hct 30.8 L 32.5 L MCV 86 86 MCH 28.3 28.3 MCHC 33.0 33.1 RDW 16.6 H 16.9 H Plt Count 103 L 115 L Seg Neutrophils % 91.7 H Sodium 141.9 Potassium 3.6 Chloride 113 H Carbon Dioxide 22 Anion Gap 7 BUN 15 Creatinine 1.79 H Est GFR ( Amer) 35 L Glucose 224 H Calcium 7.9 L 02/10/20 22:16 Troponin I 0.019 Impressions: Abdomen Ultrasound 02/10/20 19:51 IMPRESSION: 1. Increased echogenicity of the right kidney consistent with medical renal disease. 2. Right-sided pleural effusion. 3. Liver is not well seen. No obvious abnormality. Abdomen/Pelvis CT 02/11/20 00:00 IMPRESSION: Suspect acute on chronic pancreatitis. Chest X-Ray 02/14/20 00:00 IMPRESSION: Increasing right upper lobe airspace disease. In the appropriate clinical setting this is consistent with pneumonia. Assessment and Plan - Diagnosis (1) Pneumonia Qualifiers: Pneumonia type: due to unspecified organism Laterality: right Lung location: upper lobe of lung Qualified Code(s): J18.9 - Pneumonia, unspecified organism Is this a current diagnosis for this admission?: Yes Plan: Improved; patient now asymptomatic, leukocytosis has resolved, Afebrile >48 hrs. CXR showed a right upper lobe pneumonia. Blood cultures negative Sputum cultures are pending. Rapid COVID negative. She was empirically placed on IV Zosyn and Levaquin (risk for gram-negative infection related to structural lung changes; partial lobectomy). Will transition to oral Augmentin twice daily and Levaquin every 48 hours (renally dosed) Supplemental oxygen as needed to maintain saturations greater than 89%. Start scheduled and as needed nebulizer treatments. Decrease frequency of scheduled nebulizer treatments. p.o. Prednisone for wheezing throughout Mucinex twice daily. Robitussin as needed. Incentive spirometer and flutter valve to bedside. (2) Acute on chronic pancreatitis Is this a current diagnosis for this admission?: Yes Plan: Patient denies abdominal pain, nausea vomiting, diarrhea. Lipase now WNL We will advance to a soft, low residue diet. Stop IV fluids. Start Pancreaze with meals Continue analgesics and antiemetics as needed. (3) Pancytopenia Is this a current diagnosis for this admission?: Yes Plan: Improved. Followed by Dr. Kwan as outpatient. Multifactorial. Patient w/ history of lung Ca, chronic pancreatitis w/ resultant chronic malnutrition, and CKD. Certainly worsened by acute infectious process (RUL PNA). Cultures and antibiotics as above. s/p 2 units PRBC Established bottle and glass inspector, Dr. Kwan. Dr. Kwan reports that the patient has chronic pancytopenia. Close outpatient follow-up. (4) Anemia of chronic disease Is this a current diagnosis for this admission?: Yes Plan: H/H trending down; in part dilution. Guaiac stool, none since ordered Patient will need outpatient follow-up and colonoscopy if she has not had one in the past 5 years s/p 2 units PRBC Followed by Dr. Kwan as outpatient; follow up as scheduled. Monitor daily CBC (5) Hyperglycemia Is this a current diagnosis for this admission?: Yes Plan: Hemoglobin A1c 6.0 Patient has required some SSI; possibly related to the patient's IV fluids (D5 LR). IV fluids have been changed to NS. Now on p.o. Prednisone. Continue FS BS with SSI correction scale (6) Kidney disease, chronic, stage IV (GFR 15-29 ml/min) Is this a current diagnosis for this admission?: Yes Plan: Resolved; at baseline. Continue gentle IVF. Continue to avoid nephrotoxins Monitor (7) Nausea and vomiting Is this a current diagnosis for this admission?: Yes Plan: Resolved. Continue PRN antiemetics (8) Diarrhea Qualifiers: Qualified Code(s): R19.7 - Diarrhea, unspecified Is this a current diagnosis for this admission?: Yes Plan: Resolved. (9) Hypokalemia Is this a current diagnosis for this admission?: Yes Plan: Replete. (10) Hypomagnesemia Is this a current diagnosis for this admission?: Yes Plan: Serum magnesium now normal Monitor periodically - Time Time Spent with patient: 35 or more minutes Medications reviewed and adjusted accordingly: Yes Anticipated discharge: Home Within: within 24 hours
[2020-02-16] MEDS: AMOXICILLIN TR/POT CLAVULANATE 875-125 MG TAB PO SCH (21:21)
[2020-02-17] MEDS: NORMAL SALINE 1000 ML 1,000 ML IV PRN (05:23)
[2020-02-17] MEDS: NYSTATIN 500000 UNIT/5 ML UDCUP PO SCH ×4 (05:23→23:01)
[2020-02-17] MEDS: HEPARIN SOD (PORCINE) 5,000 UNIT/ML 1 ML VIAL SUBCUT SCH ×3 (05:24→21:26)
[2020-02-17] MEDS: LIPASE/PROTEASE/AMYLASE 1 CAP CAPSULE.DR PO SCH ×2 (08:17→18:54)
[2020-02-17] MEDS: CALCIUM CARBONATE 600 MG TABLET PO SCH ×2 (08:20→18:54)
[2020-02-17] MEDS: INSULIN LISPRO 100 UNIT/ML 3 ML VIAL SUBCUT SCH (08:21)
[2020-02-17] MEDS: OXYCODONE-ACETAMINOPHEN 5-325 MG TABLET PO PRN ×2 (08:24→23:01)
[2020-02-17] MEDS: IPRATROPIUM/ALBUTEROL 0.5-2.5 MG/3 ML AMPUL NEB SCH ×2 (08:30→20:17)
[2020-02-17] MEDS: AMLODIPINE BESYLATE 10 MG TABLET PO SCH (11:42)
[2020-02-17] MEDS: SODIUM BICARBONATE 650 MG TABLET PO SCH (11:42)
[2020-02-17] MEDS: AMOXICILLIN TR/POT CLAVULANATE 875-125 MG TAB PO SCH ×2 (11:42→21:25)
[2020-02-17] MEDS: PREDNISONE 20 MG TABLET PO SCH (11:43)
[2020-02-17] MEDS: CALCITRIOL 0.25 MCG CAPSULE PO SCH (11:47)
[2020-02-17] MEDS ORDERED: PANTOPRAZOLE SODIUM 40 MG TABLET.DR PO ONE (12:00)
[2020-02-17] MEDS: SUCRALFATE 1 GM TABLET PO SCH ×3 (12:27→21:25)
--- NOTE | 2020-02-17 17:38 | PDOC PROGRESS REPORT ---
Subjective Progress Note for:: 02/17/20 Subjective:: The patient was seen on morning rounds. She is found resting in bed, comfortably, on supplemental oxygen via nasal cannula. She is not home O2 dependent. She denies dyspnea, orthopnea, and cough today. She reports that her respiratory symptoms have resolved. Oxygen is turned off and she maintained saturations 88-93% without increased work of breathing (likely baseline). She complains of continued epigastric abdominal discomfort without nausea or vomiting. Continues to have a poor appetite. She denies fever, palpitations, orthopnea, abdominal pain, nausea, vomiting, and diarrhea. She has no other questions or concerns at this time. No concerns per nursing Reason For Visit: ACUTE PANCREATITIS Physical Exam Vital Signs: Temp Pulse Resp BP Pulse Ox 97.8 F 98 16 134/71 H 90 L 02/17/20 11:33 02/17/20 11:33 02/17/20 11:33 02/17/20 11:33 02/17/20 11:33 Intake & Output 02/16/20 02/17/20 02/18/20 06:59 06:59 06:59 Intake Total 3616 2576 465 Output Total 2200 500 1000 Balance 1416 2076 -535 Weight 67.8 kg 67.8 kg General appearance: PRESENT: no acute distress, cooperative, thin, well- developed Head exam: PRESENT: atraumatic, normocephalic Eye exam: PRESENT: conjunctiva pink, EOMI, PERRLA. ABSENT: scleral icterus Mouth exam: PRESENT: moist, tongue midline Respiratory exam: PRESENT: clear to auscultation marianna, symmetrical, unlabored. ABSENT: rales, rhonchi, wheezes Cardiovascular exam: PRESENT: RRR. ABSENT: diastolic murmur, rubs, systolic murmur Pulses: PRESENT: normal dorsalis pedis pul Vascular exam: PRESENT: normal capillary refill GI/Abdominal exam: PRESENT: normal bowel sounds, soft, tenderness. ABSENT: distended, guarding, mass, organolmegaly, rebound Rectal exam: PRESENT: deferred Extremities exam: PRESENT: full ROM. ABSENT: calf tenderness, clubbing, pedal edema Neurological exam: PRESENT: alert, awake, oriented to person, oriented to place, oriented to time, oriented to situation, CN II-XII grossly intact. ABSENT: motor sensory deficit Psychiatric exam: PRESENT: anxious, appropriate affect, normal mood. ABSENT: homicidal ideation, suicidal ideation Skin exam: PRESENT: dry, intact, warm. ABSENT: cyanosis, rash Results Laboratory Results: 02/16/20 05:50 02/16/20 05:50 02/10/20 22:16 Troponin I 0.019 Impressions: Abdomen Ultrasound 02/10/20 19:51 IMPRESSION: 1. Increased echogenicity of the right kidney consistent with medical renal disease. 2. Right-sided pleural effusion. 3. Liver is not well seen. No obvious abnormality. Abdomen/Pelvis CT 02/11/20 00:00 IMPRESSION: Suspect acute on chronic pancreatitis. Chest X-Ray 02/14/20 00:00 IMPRESSION: Increasing right upper lobe airspace disease. In the appropriate clinical setting this is consistent with pneumonia. Assessment and Plan - Diagnosis (1) Pneumonia Qualifiers: Pneumonia type: due to unspecified organism Laterality: right Lung location: upper lobe of lung Qualified Code(s): J18.9 - Pneumonia, unspecified organism Is this a current diagnosis for this admission?: Yes Plan: Improved; patient now asymptomatic, leukocytosis has resolved, Afebrile >48 hrs. Maintaining SpO2 on RA at rest. CXR showed a right upper lobe pneumonia. Blood cultures negative Sputum cultures not obtained. Rapid COVID negative. She was empirically placed on IV Zosyn and Levaquin (risk for gram-negative inf ection related to structural lung changes; partial lobectomy). Have transitioned to oral Augmentin twice daily and Levaquin every 48 hours (renally dosed) Supplemental oxygen as needed to maintain saturations greater than 89%. Start scheduled and as needed nebulizer treatments. Cotn[place]ue p.o. Prednisone Mucinex twice daily. Robitussin as needed. Incentive spirometer and flutter valve to bedside. (2) Acute on chronic pancreatitis Is this a current diagnosis for this admission?: Yes Plan: Patient denies abdominal pain, nausea vomiting, diarrhea. Lipase now WNL We will advance to a soft, low residue diet. Stop IV fluids. Start Pancreaze with meals Will trial Marinol for abd discomfort/chronic nausea and to encourage appetite. Continue analgesics and antiemetics as needed. (3) Pancytopenia Is this a current diagnosis for this admission?: Yes Plan: Improved. Followed by Dr. Kwan as outpatient. Multifactorial. Patient w/ history of lung Ca, chronic pancreatitis w/ resultant chronic malnutrition, and CKD. Certainly worsened by acute infectious process (RUL PNA). Cultures and antibiotics as above. s/p 2 units PRBC; Hgb stable at 10.8 Established investigator narcotics, Dr. Kwan. Dr. Kwan reports that the patient has chronic pancytopenia. Close outpatient follow-up. (4) Anemia of chronic disease Is this a current diagnosis for this admission?: Yes Plan: H/H trending down; in part dilution. Guaiac stool, none since ordered Patient will need outpatient follow-up and colonoscopy if she has not had one in the past 5 years s/p 2 units PRBC; Hgb 10.[address] Kwan as outpatient; follow up as scheduled. Monitor daily CBC (5) Hyperglycemia Is this a current diagnosis for this admission?: Yes Plan: Hemoglobin A1c 6.0 Possibly related to the patient's IV fluids (D5 LR). IV fluids have been discontinued Now on p.o. Prednisone. Continue FS BS with SSI correction scale (6) Kidney disease, chronic, stage IV (GFR 15-29 ml/min) Is this a current diagnosis for this admission?: Yes Plan: Resolved; at baseline. Continue gentle IVF. Continue to avoid nephrotoxins Monitor (7) Nausea and vomiting Is this a current diagnosis for this admission?: Yes Plan: Resolved. Continue PRN antiemetics Trial Marinol for chronic nausea. (8) Diarrhea Qualifiers: Qualified Code(s): R19.7 - Diarrhea, unspecified Is this a current diagnosis for this admission?: Yes Plan: Resolved. (9) Hypokalemia Is this a current diagnosis for this admission?: Yes Plan: Replete. (10) Hypomagnesemia Is this a current diagnosis for this admission?: Yes Plan: Serum magnesium now normal Monitor periodically - Time Time Spent with patient: 25-34 minutes Anticipated discharge: Home Within: within 24 hours
[2020-02-17] MEDS: DRONABINOL 2.5 MG CAPSULE PO SCH (18:54)
[2020-02-18 01:13] LABS: ALBUMIN 2.3 g/dL (3.5-5.0); ALKALINE PHOSPHATASE 85 U/L (38-126); ASPARTATE AMINO TRANSFERASE 28 U/L (14-36); BILIRUBIN,DIRECT 0.1 mg/dL (0.0-0.4); BILIRUBIN,TOTAL 0.6 mg/dL (0.2-1.3); TOTAL PROTEIN 5.3 g/dL (6.3-8.2)
[2020-02-18] MEDS: NYSTATIN 500000 UNIT/5 ML UDCUP PO SCH ×2 (05:08→11:46)
[2020-02-18] MEDS: HEPARIN SOD (PORCINE) 5,000 UNIT/ML 1 ML VIAL SUBCUT SCH ×2 (05:08→14:44)
[2020-02-18] MEDS ORDERED: PANTOPRAZOLE SODIUM 40 MG TABLET.DR PO SCH (06:00)
[2020-02-18] MEDS: SUCRALFATE 1 GM TABLET PO SCH ×3 (08:00→16:48)
[2020-02-18] MEDS: IPRATROPIUM/ALBUTEROL 0.5-2.5 MG/3 ML AMPUL NEB SCH (08:08)
[2020-02-18] MEDS: INSULIN LISPRO 100 UNIT/ML 3 ML VIAL SUBCUT SCH (11:44)
[2020-02-18] MEDS: SODIUM BICARBONATE 650 MG TABLET PO SCH (11:46)
[2020-02-18] MEDS: CALCIUM CARBONATE 600 MG TABLET PO SCH ×2 (11:47→16:45)
[2020-02-18] MEDS: PREDNISONE 20 MG TABLET PO SCH (11:47)
[2020-02-18] MEDS: DRONABINOL 2.5 MG CAPSULE PO SCH (11:47)
[2020-02-18] MEDS: AMLODIPINE BESYLATE 10 MG TABLET PO SCH (11:47)
[2020-02-18] MEDS: LIPASE/PROTEASE/AMYLASE 1 CAP CAPSULE.DR PO SCH ×2 (11:48→16:46)
[2020-02-18] MEDS: AMOXICILLIN TR/POT CLAVULANATE 875-125 MG TAB PO SCH (11:48)
[2020-02-18] MEDS: CALCITRIOL 0.25 MCG CAPSULE PO SCH (11:52)
[2020-02-18 19:23] VITALS: BP 123/72
[2020-02-18] MEDS ORDERED: LEVOFLOXACIN 750 MG TABLET PO ONE (20:00)
--- NOTE | 2020-02-22 10:04 | PDOC DISCHARGE SUMMARY ---
Impression - Admit/DC Date/PCP Admission Date/Primary Care Provider: 02/11/20 00:19 LISSETTE CROCKETT NP Discharge Date: 02/18/20 - Discharge Diagnosis (1) Pneumonia Is this a current diagnosis for this admission?: Yes (2) Acute on chronic pancreatitis Is this a current diagnosis for this admission?: Yes (3) Pancytopenia Is this a current diagnosis for this admission?: Yes (4) Anemia of chronic disease Is this a current diagnosis for this admission?: Yes (5) Hyperglycemia Is this a current diagnosis for this admission?: Yes (6) Kidney disease, chronic, stage IV (GFR 15-29 ml/min) Is this a current diagnosis for this admission?: Yes (7) Nausea and vomiting Is this a current diagnosis for this admission?: Yes (8) Diarrhea Is this a current diagnosis for this admission?: Yes (9) Hypokalemia Is this a current diagnosis for this admission?: Yes (10) Hypomagnesemia Is this a current diagnosis for this admission?: Yes - Additional Information Resuscitation Status: Full Code Discharge Diet: Regular Discharge Activity: Activity As Tolerated, Balance Activity w/Rest, Slowly Increase Activity Referrals: LISSETTE CROCKETT NP [Primary Care Provider] - (spoke to the office and they will call you to schedule an appointment.) BALA KWAN MD [ACTIVE STAFF] - (Follow-up with Dr. Kwan's nurse on Thursday for nurse visit.) Prescriptions: Amoxicillin/Potassium Clav [Augmentin 875-125 Tablet] 1 tab PO Q12 #10 tablet Dronabinol [Marinol 2.5 mg Capsule] 2.5 mg PO BID #60 capsule Nystatin [Mycostatin 500,000 Unit/5 ml Susp Udcup] 100,000 unit PO Q6 #20 udc Lipase/Protease/Amylase [Pancreaze-10 Capsule.dr] 1 cap PO BIDACBS #90 capsule. Oxycodone HCl/Acetaminophen [Percocet 5-325 mg Tablet] 1 tab PO Q6HP PRN #20 tablet PRN Reason: Home Medications: Sodium Bicarbonate [Sodium Bicarbonate 650 mg Tablet] 650 mg PO DAILY 09/09/19 Amlodipine Besylate [Norvasc 10 mg Tablet] 10 mg PO DAILY #30 tablet 09/13/19 Calcitriol [Rocaltrol 0.5 mcg Capsule] 0.5 mcg PO DAILY 02/11/20 Carboxymethylcellulose Sodium [Lubricant Eye Drop] 1 drop OU DAILYP PRN 02/11/20 Acetaminophen [Tylenol 325 mg Tablet] 650 mg PO Q4HP PRN tablet 02/18/20 Amoxicillin/Potassium Clav [Augmentin 875-125 Tablet] 1 tab PO Q12 #10 tablet 02/18/20 Dronabinol [Marinol 2.5 mg Capsule] 2.5 mg PO BID #60 capsule 02/18/20 Lipase/Protease/Amylase [Pancreaze-10 Capsule.dr] 1 cap PO BIDACBS #90 capsule. 02/18/20 Nystatin [Mycostatin 500,000 Unit/5 ml Susp Udcup] 100,000 unit PO Q6 #20 udc 02/18/20 Oxycodone HCl/Acetaminophen [Percocet 5-325 mg Tablet] 1 tab PO Q6HP PRN #20 tablet 02/18/20 Prednisone [Deltasone 20 mg Tablet] 2 tab PO DAILY 4 Days #8 tablet 02/21/20 History of Present Illiness History of Present Illness: Per H&P by Dr. Ludwig: JIHAN MORA is a 64 year old female who presented emergency room with a 3-day history of abdominal pain. She admits the gradual development and worsening of constant epigastric cramping abdominal pain without radiation for the last 3 days, becoming severe today. The pain has been accompanied by constant nausea with episodic vomiting and diarrhea. Her abdominal pain has been associated with decreased oral intake and decreased appetite. She denies other associated or accompanying signs and symptoms. She admits numerous prior similar episodes related to her chronic pancreatitis. She has not identified any aggravating or ameliorating factors for her abdominal pain. In the emergency room she was found to have a serum amylase of 1005 with and was noted to have intractable nausea with retching. She was subsequently admitted to the hospital for further evaluation and treatment. Hospital Course Hospital Course: (1) Pneumonia Resolved; patient now asymptomatic, leukocytosis has resolved, Afebrile >48 hrs. Maintaining SpO2 on RA. CXR showed a right upper lobe pneumonia. Blood cultures negative Sputum cultures not obtained. Rapid COVID negative. She was empirically placed on IV Zosyn and Levaquin (risk for gram-negative infection related to structural lung changes; partial lobectomy). Have transitioned to oral Augmentin twice daily and Levaquin every 48 hours (renally dosed) to complete antibiotic course following discharge. She was supported with supplemental oxygen, scheduled and as needed nebulizer treatments and prednisone. Pulmonary toilet was encouraged with Incentive spirometer and flutter valve. (2) Acute on chronic pancreatitis Resolved. Patient denies abdominal pain, nausea vomiting, diarrhea. Lipase now WNL Tolerating a soft, low residue diet. Started on Pancreaze with meals; prescription provided at discharge. Will trial Marinol for abd discomfort/chronic nausea and to encourage appetite. Continue analgesics and antiemetics as needed. (3) Pancytopenia Improved. Followed by Dr. Kwan as outpatient. Multifactorial. Patient w/ history of lung Ca, chronic pancreatitis w/ resultant chronic malnutrition, and CKD. Certainly worsened by acute infectious process (RUL PNA). Cultures and antibiotics as above. s/p 2 units PRBC; Hgb stable at 10.8 Established psychiatry teacher, Dr. Kwan. Dr. Kwan reports that the patient has chronic pancytopenia. Close outpatient follow-up. (4) Anemia of chronic disease Hemoglobin initially trended down; in part to hemodilution. Discussed with patient's established psychiatry teacher, Dr. Kwan, who states that she is near her baseline but recommend transfusion for hemoglobin less than 8. She did receive 2 units PRBC and is now maintaining a hemoglobin of 10.8. Patient will need outpatient follow-up and colonoscopy if she has not had one in the past [address] Kwan as outpatient; follow up as scheduled. (5) Hyperglycemia Hemoglobin A1c 6.0 Possibly related to the patient's IV fluids (D5 LR) and steroid therapy. Received Accu-Cheks with sliding scale insulin for correction while admitted. Does not require chronic medications for maintenance at discharge. (6) Kidney disease, chronic, stage IV (GFR 15-29 ml/min) Acute worsening resolved with IV fluids. Renal function has returned to baseline. Continue to avoid nephrotoxins (7) Nausea and vomiting Resolved. Continue PRN antiemetics Trial Marinol for chronic nausea; patient notes relief of abdominal symptoms and requests to continue following discharge. We discussed that Marinol is a controlled substance and she will need to discuss this prescription with her primary care provider and/or Dr. Kwan as they may not feel comfortable continuing this for the long-term. She is provided a 30-day prescription for twice a day Marinol at discharge. (8) Diarrhea Resolved. (9) Hypokalemia Replete. (10) Hypomagnesemia Replete Serum magnesium now normal Physical Exam Vital Signs: Temp Pulse Resp BP Pulse Ox 98.3 F 97 16 131/75 H 96 02/18/20 18:01 02/18/20 18:01 02/18/20 18:01 02/18/20 18:01 02/18/20 18:01 General appearance: PRESENT: no acute distress, cooperative, thin, well- developed Head exam: PRESENT: atraumatic, normocephalic Eye exam: PRESENT: conjunctiva pink, EOMI, PERRLA. ABSENT: scleral icterus Mouth exam: PRESENT: moist, tongue midline Respiratory exam: PRESENT: clear to auscultation marianna, symmetrical, unlabored. ABSENT: rales, rhonchi, wheezes Cardiovascular exam: PRESENT: RRR. ABSENT: diastolic murmur, rubs, systolic murmur Vascular exam: PRESENT: normal capillary refill GI/Abdominal exam: PRESENT: normal bowel sounds, soft. ABSENT: distended, guarding, mass, organolmegaly, rebound, tenderness Rectal exam: PRESENT: deferred Extremities exam: PRESENT: full ROM. ABSENT: calf tenderness, clubbing, pedal edema Musculoskeletal exam: PRESENT: ambulatory Neurological exam: PRESENT: alert, awake, oriented to person, oriented to place, oriented to time, oriented to situation, CN II-XII grossly intact. ABSENT: motor sensory deficit Psychiatric exam: PRESENT: appropriate affect, normal mood. ABSENT: homicidal ideation, suicidal ideation Skin exam: PRESENT: dry, intact, warm. ABSENT: cyanosis, rash Results Laboratory Results: WBC 7.8 10^3/uL (4.0-10.5) 02/16/20 05:50 RBC 3.80 10^6/uL (3.72-5.28) 02/16/20 05:50 Hgb 10.8 g/dL (12.0-15.5) L 02/16/20 05:50 Hct 32.5 % (36.0-47.0) L 02/16/20 05:50 MCV 86 fl (80-97) 02/16/20 05:50 MCH 28.3 pg (27.0-33.4) 02/16/20 05:50 MCHC 33.1 g/dL (32.0-36.0) 02/16/20 05:50 RDW 16.9 % (11.5-14.0) H 02/16/20 05:50 Plt Count 115 10^3/uL (150-450) L 02/16/20 05:50 Lymph % (Auto) 5.8 % (13-45) L 02/15/20 21:27 [place] % (Auto) 2.3 % (3-13) L 02/15/20 21:27 Eos % (Auto) 0.0 % (0-6) 02/15/20 21: Baso % (Auto) 0.2 % (0-2) 02/15/20 21:27 Absolute Neuts (auto) 6.3 10^3/uL (1.7-8.2) 02/15/20 21:27 Absolute Lymphs (auto) 0.4 10^3/uL (0.5-4.7) L 02/15/20 21:27 Absolute Monos (auto) 0.2 10^3/uL (0.1-1.4) 02/15/20 21:27 Absolute Eos (auto) 0.0 10^3/uL (0.0-0.6) 02/15/20 21:27 Absolute Basos (auto) 0.0 10^3/uL (0.0-0.2) 02/15/20 21:27 Seg Neutrophils % 91.7 % (42-78) H 02/15/20 21:27 Sodium 141.9 mmol/L (137-145) 02/16/20 05:50 Potassium 3.6 mmol/L (3.6-5.0) 02/16/20 05:50 Chloride 113 mmol/L (98-107) H 02/16/20 05:50 Carbon Dioxide 22 mmol/L (22-30) 02/16/20 05:50 Anion Gap 7 (5-19) 02/16/20 05:50 BUN 15 mg/dL (7-20) 02/16/20 05:50 Creatinine 1.79 mg/dL (0.52-1.25) H 02/16/20 05:50 Est GFR ( Amer) 35 (>60) L 02/16/20 05:50 Est GFR (MDRD) Non-Af 29 (>60) L 02/16/20 05:50 Glucose 224 mg/dL (75-110) H 02/16/20 05:50 POC Glucose 126 mg/dL (70-110) H 02/18/20 15:28 Hemoglobin A1c % 6.0 % (4.7-6.0) 02/12/20 05:40 Calcium 7.9 mg/dL (8.4-10.2) L 02/16/20 05:50 Magnesium 1.6 mg/dL (1.6-2.3) 02/14/20 08:06 Total Bilirubin 0.6 mg/dL (0.2-1.3) 02/17/20 23:40 Direct Bilirubin 0.1 mg/dL (0.0-0.4) 02/17/20 23:40 Neonat Total Bilirubin Not Reportable 02/17/20 23:40 Neonat Direct Bilirubin Not Reportable 02/17/20 23:40 Neonat Indirect Bili Not Reportable 02/17/20 23:40 AST 28 U/L (14-36) 02/17/20 23:40 ALT 13 U/L (<35) 02/17/20 23:40 Alkaline Phosphatase 85 U/L (38-126) 02/17/20 23:40 Troponin I 0.019 ng/mL 02/10/20 22:16 Total Protein 5.3 g/dL (6.3-8.2) L 02/17/20 23:40 Albumin 2.3 g/dL (3.5-5.0) L 02/17/20 23:40 Triglycerides 112 mg/dL (<150) 02/11/20 05:45 Cholesterol 73.11 mg/dL (0-200) 02/11/20 05:45 LDL Cholesterol Direct < 30 mg/dL (<100) 02/11/20 05:45 VLDL Cholesterol 22.4 mg/dL (10-31) 02/11/20 05:45 HDL Cholesterol 20 mg/dL (>40) L 02/11/20 05:45 Amylase 107 U/L (30-110) 02/13/20 09:00 Lipase 596.3 U/L (23-300) H 02/18/20 12:37 TSH 2.31 uIU/mL (0.47-4.68) 02/11/20 05:45 Urine Color YELLOW 02/10/20 22:48 Urine Appearance CLEAR 02/10/20 22:48 Urine pH 6.0 (5.0-9.0) 02/10/20 22:48 Ur Specific [place] 1.010 02/10/20 22:48 Urine Protein 100 mg/dL (NEGATIVE) H 02/10/20 22:48 Urine Glucose (UA) NEGATIVE mg/dL (NEGATIVE) 02/10/20 22:48 Urine Ketones 20 mg/dL (NEGATIVE) H 02/10/20 22:48 Urine Blood SMALL (NEGATIVE) H 02/10/20 22:48 Urine Nitrite (Reflex) NEGATIVE (NEGATIVE) 02/10/20 22:48 Urine Bilirubin NEGATIVE (NEGATIVE) 02/10/20 22:48 Urine Urobilinogen NEGATIVE mg/dL (<2.0) 02/10/20 22:48 Leukocyte Esterase Rfl TRACE (NEGATIVE) H 02/10/20 22:48 Urine RBC (Auto) 1 /HPF 02/10/20 22:48 Urine Bacteria (Auto) TRACE /HPF 02/10/20 22:48 Urine WBC (Reflex) 5 /HPF 02/10/20 22:48 Squamous Epi Cells Auto 10 /HPF 02/10/20 22:48 Urine Mucus (Auto) RARE /LPF 02/10/20 22:48 Urine Ascorbic Acid NEGATIVE (NEGATIVE) 02/10/20 22:48 Stool Occult Blood NEGATIVE (NEGATIVE) 02/18/20 17:31 SARS-CoV-2 (PCR) NEGATIVE (NEGATIVE) 02/14/20 12:45 Blood Type O POSITIVE 02/15/20 11:24 Antibody Screen NEGATIVE 02/15/20 11:24 Crossmatch See Detail 02/15/20 11:24 02/10/20 22:16 Troponin I 0.019 Impressions: Abdomen Ultrasound 02/10/20 19:51 IMPRESSION: 1. Increased echogenicity of the right kidney consistent with medical renal disease. 2. Right-sided pleural effusion. 3. Liver is not well seen. No obvious abnormality. Abdomen/Pelvis CT 02/11/20 00:00 IMPRESSION: Suspect acute on chronic pancreatitis. Chest X-Ray 02/14/20 00:00 IMPRESSION: Increasing right upper lobe airspace disease. In the appropriate clinical setting this is consistent with pneumonia. Plan Plan of Treatment: Patient is discharged home in stable condition. She advised follow-up with her primary care provider within 1 week. She is instructed to follow-up with Dr. Kwan's office on Thursday; they will be making arrangements for her to have a nurse visit Thursday and Thursday of next week for hydration and pain evaluation. She is advised to take her medications as prescribed. Eat a soft, bland diet, advance slowly as tolerated. Do not drink alcohol or use tobacco products. Drink plenty of water. Return to emergency department as needed for concerning symptoms. Time Spent: Greater than 30 Minutes Stroke Is this a Stroke Patient?: No Acute Heart Failure - Is this a Heart Failure Patient?: No
== END 2020-02-18 19:04 | disposition home or self-care (01) | DRG 438 ==
LOC: ER 15:40 → EH 02-11 00:19 → 4S 02-11 01:38
PROVIDERS: ADMIT Emergency Medicine; ATTEND Registered Nurse
PROC: 30233N1 Transfusion of Nonautologous Red Blood Cells into Peripheral Vein, Percutaneous Approach (ICD-10-PCS; principal; 2020-02-15)
DX: K85.90 Acute pancreatitis without necrosis or infection, unspecified (principal); J18.9 Pneumonia, unspecified organism; I13.0 Hypertensive heart and chronic kidney disease with heart failure and stage 1 through stage 4 chronic kidney disease, or unspecified chronic kidney disease; N18.4 Chronic kidney disease, stage 4 (severe); D61.818 Other pancytopenia; E46 Unspecified protein-calorie malnutrition; C34.11 Malignant neoplasm of upper lobe, right bronchus or lung; K86.1 Other chronic pancreatitis; T46.5X6A Underdosing of other antihypertensive drugs, initial encounter; D63.1 Anemia in chronic kidney disease; I50.9 Heart failure, unspecified; I25.10 Atherosclerotic heart disease of native coronary artery without angina pectoris; E78.5 Hyperlipidemia, unspecified; K21.9 Gastro-esophageal reflux disease without esophagitis; M19.90 Unspecified osteoarthritis, unspecified site; R19.7 Diarrhea, unspecified; E87.6 Hypokalemia; E11.65 Type 2 diabetes mellitus with hyperglycemia; E83.42 Hypomagnesemia; E83.51 Hypocalcemia; Z86.010 Personal history of colon polyps; Z90.5 Acquired absence of kidney; Z20.828 Contact with and (suspected) exposure to other viral communicable diseases; Z90.2 Acquired absence of lung [part of]; Z91.138 Patient's unintentional underdosing of medication regimen for other reason; Z90.49 Acquired absence of other specified parts of digestive tract; Z88.2 Allergy status to sulfonamides; Z88.6 Allergy status to analgesic agent; Z86.73 Personal history of transient ischemic attack (TIA), and cerebral infarction without residual deficits; Z82.49 Family history of ischemic heart disease and other diseases of the circulatory system; I25.2 Old myocardial infarction; Z85.07 Personal history of malignant neoplasm of pancreas; Z87.891 Personal history of nicotine dependence; Z88.8 Allergy status to other drugs, medicaments and biological substances
CPT/HCPCS: 36415; 36430; 36591; 71045; 74176; 76705; 80048; 80053; 80061; 80076; 81001; 82150; 82272; 82962; 83036; 83690; 83735; 84443; 84484; 85025; 85027; 86850; 86900; 86901; 86920; 87040; 87635; 93005; 93010; 93976; 94667; 94799; 96361; 96374; 96375; 96376; 99285; A9270-GY; C9113; C9803; J1170; J1642; J1644; J1815; J1940; J1956; J2270; J2405; J2543; J2550; J3230; J3475; J3480; J3490; J7030; J7050; J7121; J7512; P9016

== ENCOUNTER 2020-02-21 13:21 | Emergency (ER) | payer MEDICARE ==
[2020-02-21 13:32] VITALS: BP 113/84
[2020-02-21] MEDS ORDERED: PREDNISONE 20 MG TABLET PO ONE (13:45)
[2020-02-21] MEDS ORDERED: OXYCODONE-ACETAMINOPHEN 5-325 MG TABLET PO ONE (13:45)
--- NOTE | 2020-02-21 13:49 | ER Document Report ---
HPI - HPI Patient complains to provider of: Right foot pain Time Seen by Provider: 02/21/20 13:31 Onset: Yesterday Onset/Duration: Worse Quality of pain: Sharp Pain Level: 5 Context: Patient presents complaining of right foot pain. Patient reports she is having a gout flareup. Patient denies any fever or injury. Associated Symptoms: denies: Fever, Vomiting Exacerbated by: Standing, Movement, Walking Relieved by: Denies Similar symptoms previously: Yes Recently seen / treated by doctor: Yes - ROS ROS below otherwise negative: Yes Systems Reviewed and Negative: Yes All other systems reviewed and negative - CONSTITUTIONAL Constitutional: DENIES: Fever, Chills - GASTROINTESTINAL Gastrointestinal: REPORTS: Nausea. DENIES: Abdominal Pain, Patient vomiting - REPRODUCTIVE Reproductive: DENIES: : - MUSCULOSKELETAL Musculoskeletal: REPORTS: Extremity pain, Swelling - DERM Skin Color: Erythema Past Medical History - General Information source: Patient - Social History Smoking Status: Former Smoker Frequency of alcohol use: None Drug Abuse: None Lives with: Family Family History: CAD, Hypertension - Past Medical History Cardiac Medical History: Reports: Hx Congestive Heart Failure, Hx Coronary Artery Disease, Hx Heart Attack - 2013, Hx Hypercholesterolemia, Hx Hypertension Pulmonary Medical History: Reports: Hx Bronchitis Denies: Hx Asthma, Hx COPD, Hx Pneumonia, Hx Tuberculosis Neurological Medical History: Reports: Hx Cerebrovascular Accident - stroke 03/2014 while unresponsive following abd surgical complication. Denies: Hx Seizures Endocrine Medical History: Denies: Hx Diabetes Mellitus Type 1, Hx Diabetes Mellitus Type 2, Hx Hyperthyroidism, Hx Hypothyroidism Renal/ Medical History: Reports: Hx End Stage Renal Disease - kidney cancer, Hx Renal Insufficiency. Denies: Hx Peritoneal Dialysis Malignancy Medical History: Reports: Hx Lung Cancer - Right upper partial lobectomy 11/09/2018., Hx Pancreatic Cancer - Mass to tail pancreas, July 2015. Did not light up on PET scan., Hx Renal (Kidney) Cancer - Renal cell carcinoma with left nephrectomy 2007. GI Medical History: Reports: Hx Gastritis, Hx Gastroesophageal Reflux Disease Musculoskeletal Medical History: Reports Hx Arthritis - Right hip DJD., Reports Hx Gout Skin Medical History: Denies Hx Eczema, Denies Hx Psoriasis Psychiatric Medical History: Denies: Hx Depression Infectious Medical History: Denies: Hx Hepatitis Past Surgical History: Reports: Hx Abdominal Surgery - HERNIA, PERFORATED BOWEL, Hx Cholecystectomy, Hx Herniorrhaphy - Umbilical hernia repair complicated by bowel perforation and peritonitis, Hx Kidney (Renal Surgery) - Left nephrectomy for renal cell carcinoma, Hx Orthopedic Surgery - Right patella surgery for dislocation,, Hx Vascular Surgery - Port placed in right upper arm 01/19/2019. Retinal detachment repair., Other - EGD to evaluate pancreatic mass. Right upper partial lobectomy 11/09/2018.. Denies: Hx Hysterectomy - Immunizations Hx Diphtheria, Pertussis, Tetanus Vaccination: No Hx Pneumococcal Vaccination: 08/03/10 Vertical Provider Document - CONSTITUTIONAL Agree With Documented VS: Yes Exam Limitations: No Limitations General Appearance: WD/WN - INFECTION CONTROL TRAVEL OUTSIDE OF THE [place] IN LAST 30 DAYS: No - HEENT HEENT: Atraumatic - NECK Neck: Normal Inspection - RESPIRATORY Respiratory: No Respiratory Distress - CARDIOVASCULAR Cardiovascular: Regular Rate, Regular Rhythm Pulses: Normal: Dorsalis pedis - MUSCULOSKELETAL/EXTREMETIES Musculoskeletal/Extremeties: Tender - Right midfoot tenderness to the dorsum of the foot with overlying erythema and mild calor. Patient with exquisite tenderness with very light palpation., Edema - 1+ to right foot - NEURO Level of Consciousness: Awake, Alert, Appropriate Motor/Sensory: No Motor Deficit - DERM Integumentary: Warm, Dry Course - Re-evaluation Re-evalutation: 02/21/20 13:52 Patient presents with symptoms worrisome for gout flareup at this time. Patient already is taking pain medication at home. Will add on oral steroids to help prevent gout flare. Discussed a low purine diet to help minimize flareups. - Vital Signs Vital signs: Temp Pulse Resp BP Pulse Ox 99.0 F 99 20 113/84 100 02/21/20 13:31 02/21/20 13:31 02/21/20 13:31 02/21/20 13:31 02/21/20 13:31 Discharge - Discharge Clinical Impression: Gout attack Qualifiers: Gout site: foot Gout etiology: unspecified cause Laterality: right Qualified Code(s): M10.9 - Gout, unspecified Condition: Stable Disposition: HOME, SELF-CARE Instructions: Gout ([facility]), Gout Diet ([facility]), Steroid Medication Additional Instructions: Return immediately for any new or worsening symptoms Followup with your primary care provider, call tomorrow to make a followup appointment Limit foods that are high in purine in your diet Take your pain medication that you have at home as prescribed Prescriptions: Prednisone [Deltasone 20 mg Tablet] 2 tab PO DAILY 4 Days #8 tablet Referrals: [facility] [Primary Care Provider] - Follow up as needed
[2020-02-21] MEDS ORDERED: ONDANSETRON 4 MG TAB.RAPDIS PO ONE (13:51)
== END 2020-02-21 14:34 | disposition home or self-care (01) ==
LOC: ER 13:21
DX: M10.9 Gout, unspecified (principal); M79.671 Pain in right foot; R11.0 Nausea; I11.0 Hypertensive heart disease with heart failure; I50.9 Heart failure, unspecified; I25.10 Atherosclerotic heart disease of native coronary artery without angina pectoris; E78.00 Pure hypercholesterolemia, unspecified; I25.2 Old myocardial infarction; Z86.73 Personal history of transient ischemic attack (TIA), and cerebral infarction without residual deficits
CPT/HCPCS: 99283; A9270 ×3; J7512; S0119

== ENCOUNTER 2020-04-04 16:31 | Emergency (ER) | payer MEDICARE, MEDICAID ==
[2020-04-04] MEDS ORDERED: FENTANYL CITRATE INJ/PF 100 MCG/2 ML AMPUL IV ONE (17:28)
[2020-04-04] MEDS ORDERED: ONDANSETRON HCL INJ/PF 4 MG/2 ML SDV IV ONE (17:29)
--- NOTE | 2020-04-04 17:31 | ER Document Report ---
ED Medical Screen (RME) - General Chief Complaint: Abdominal Pain Stated Complaint: FACIAL SWELLING/ARM SWELLING Time Seen by Provider: 04/04/20 17:22 Primary Care Provider: LISSETTE CROCKETT NP [Primary Care Provider] - Follow up as needed Information source: Patient Notes: Patient presents complaining of abdominal pain nausea with facial and hand swelling. Patient was just discharged from [facility] 4 days ago after a 3- week stay for pancreatitis. Patient did have a pancreatic biopsy performed during her hospital admission. Patient with a previous history of hypertension, renal cancer, lung cancer and has had a previous nephrectomy. Patient tachycardic in triage I have greeted and performed a rapid initial assessment of this patient. A comprehensive ED assessment and evaluation of the patient, analysis of test results and completion of the medical decision making process will be conducted by additional ED providers. TRAVEL OUTSIDE OF THE [place] IN LAST 30 DAYS: No - Related Data Allergies/Adverse Reactions: sulfamethoxazole [From Bactrim] Allergy (Verified 12/29/19 11:47) trimethoprim [From Bactrim] Allergy (Verified 12/29/19 11:47) aspirin [Aspirin] Adverse Reaction (Verified 12/29/19 11:47) Past Medical History - Social History Family history: Reviewed & Not Pertinent - Past Medical History Cardiac Medical History: Reports: Hx Congestive Heart Failure, Hx Coronary Artery Disease, Hx Heart Attack - 2013, Hx Hypercholesterolemia, Hx Hypertension Pulmonary Medical History: Reports: Hx Bronchitis Denies: Hx Asthma, Hx COPD, Hx Pneumonia, Hx Tuberculosis Neurological Medical History: Reports: Hx Cerebrovascular Accident - stroke 03/2014 while unresponsive following abd surgical complication. Denies: Hx Seizures Endocrine Medical History: Denies: Hx Diabetes Mellitus Type 1, Hx Diabetes Mellitus Type 2, Hx Hyperthyroidism, Hx Hypothyroidism Renal/ Medical History: Reports: Hx End Stage Renal Disease - kidney cancer, Hx Renal Insufficiency. Denies: Hx Peritoneal Dialysis Malignancy Medical History: Reports: Hx Lung Cancer - Right upper partial lo bectomy 11/09/2018., Hx Pancreatic Cancer - Mass to tail pancreas, July 2015. Did not light up on PET scan., Hx Renal (Kidney) Cancer - Renal cell carcinoma with left nephrectomy 2007. GI Medical History: Reports: Hx Gastritis, Hx Gastroesophageal Reflux Disease. Denies: Hx Cirrhosis, Hx Crohn's Disease, Hx Diverticulitis, Hx Hepatitis, Hx Ulcerative Colitis Musculoskeltal Medical History: Reports Hx Arthritis - Right hip DJD., Reports Hx Gout Skin Medical History: Denies Hx Eczema, Denies Hx Psoriasis Psychiatric Medical History: Denies: Hx Depression Infectious Medical History: Denies: Hx Hepatitis Past Surgical History: Reports: Hx Abdominal Surgery - HERNIA, PERFORATED BOWEL, Hx Cholecystectomy, Hx Herniorrhaphy - Umbilical hernia repair complicated by bowel perforation and peritonitis, Hx Kidney (Renal Surgery) - Left nephrectomy for renal cell carcinoma, Hx Orthopedic Surgery - Right patella surgery for dislocation,, Hx Vascular Surgery - Port placed in right upper arm 01/19/2019. Retinal detachment repair., Other - EGD to evaluate pancreatic mass. Right upper partial lobectomy 11/09/2018.. Denies: Hx Hysterectomy - Immunizations Hx Diphtheria, Pertussis, Tetanus Vaccination: No Physical Exam - Vital signs Vitals: Temp Pulse Resp BP Pulse Ox 98.0 F 144 H 18 126/96 H 96 04/04/20 16:49 04/04/20 16:49 04/04/20 16:49 04/04/20 16:49 04/04/20 16:49 - General Notes: Periorbital edema, mild swelling to bilateral hands - Cardiovascular Rhythm: Tachycardia Heart sounds: S1 appreciated, S2 appreciated - Abdominal Tenderness: Tender Course - Vital Signs Vital signs: Temp Pulse Resp BP Pulse Ox 98.0 F 144 H 18 126/96 H 96 04/04/20 16:49 04/04/20 16:49 04/04/20 16:49 04/04/20 16:49 04/04/20 16:49 Doctor's Discharge - Discharge Referrals: LISSETTE CROCKETT NP [Primary Care Provider] - Follow up as needed
[2020-04-04] MEDS ORDERED: NORMAL SALINE 1000 ML 1,000 ML IV ONE (17:42)
[2020-04-04 17:58] LABS: HEMATOCRIT 28.3 % (36.0-47.0); HEMOGLOBIN 9.4 g/dL (12.0-15.5); MEAN CORPUSCULAR HEMOGLOBIN 28.6 pg (27.0-33.4); MEAN CORPUSCULAR HGB CONC 33.3 g/dL (32.0-36.0); MEAN CORPUSCULAR VOLUME 86 fl (80-97); PLATELET COUNT 122 10^3/uL (150-450); RED BLOOD COUNT 3.29 10^6/uL (3.72-5.28); RED CELL DISTRIBUTION WIDTH 18.2 % (11.5-14.0); WHITE BLOOD COUNT 5.8 10^3/uL (4.0-10.5)
[2020-04-04 18:22] LABS: ALBUMIN 2.6 g/dL (3.5-5.0); ALKALINE PHOSPHATASE 113 U/L (38-126); ANION GAP 14 (5-19); ASPARTATE AMINO TRANSFERASE 28 U/L (14-36); BILIRUBIN,DIRECT 0.6 mg/dL (0.0-0.4); BILIRUBIN,TOTAL 0.7 mg/dL (0.2-1.3); BLOOD UREA NITROGEN 20 mg/dL (7-20); CALCIUM 8.6 mg/dL (8.4-10.2); CARBON DIOXIDE 21 mmol/L (22-30); CHLORIDE 102 mmol/L (98-107); GLUCOSE 123 mg/dL (75-110); TOTAL PROTEIN 5.9 g/dL (6.3-8.2)
[2020-04-04 18:24] LABS: POTASSIUM 2.9 mmol/L (3.6-5.0)
--- NOTE | 2020-04-04 18:30 | RADIOLOGY REPORT (SQ) ---
EXAM DESCRIPTION: CHEST SINGLE VIEW IMAGES COMPLETED DATE/TIME: 04/04/2020 5:06 pm REASON FOR STUDY: upper abd pain COMPARISON: 02/14/2020 EXAM PARAMETERS: NUMBER OF VIEWS: One view. TECHNIQUE: Single frontal radiographic view of the chest acquired. RADIATION DOSE: NA LIMITATIONS: None. FINDINGS: LUNGS AND PLEURA: Lungs are hyperinflated. Improved aeration in the right lung. Chronic small right pleural effusion, stable. No left effusion. No pneumothorax. MEDIASTINUM AND HILAR STRUCTURES: No masses. Contour normal. HEART AND VASCULAR STRUCTURES: Heart normal in size. Normal vasculature. BONES: No acute findings. HARDWARE: Right MediPort catheter with tip at the cavoatrial junction unchanged. OTHER: No other significant finding. IMPRESSION: No significant interval change. Chronic right pleural effusion is stable. TECHNICAL DOCUMENTATION: JOB ID: [id number] 2010 [employer]- All Rights Reserved Reading location - IP/workstation name: [email or web address]
[2020-04-04 18:31] LABS: ABSOLUTE LYMPHOCYTES# (MANUAL) 1.5 10^3/uL (0.5-4.7); ABSOLUTE MONOCYTES # (MANUAL) 0.2 10^3/uL (0.1-1.4); BAND NEUTROPHILS % (MANUAL) 1 % (3-5); BASOPHILS % (MANUAL) 0 % (0-2); EOSINOPHILS % (MANUAL) 0 % (0-6); LYMPHOCYTES % (MANUAL) 25 % (13-45); MONOCYTES % (MANUAL) 4 % (3-13); SEGMENTED NEUTROPHILS % (MAN) 70 % (42-78); TOTAL CELLS COUNTED 100
[2020-04-04 18:33] LABS: ANISOCYTOSIS 2+; OVALOCYTES 2+; PLATELET COMMENT DECREASED; TARGET CELLS SLIGHT
[2020-04-04 18:37] LABS: TROPONIN I 0.019 ng/mL
--- NOTE | 2020-04-04 18:55 | ER Document Report ---
ED Medical Screen (E) - General Chief Complaint: Abdominal Pain Stated Complaint: FACIAL SWELLING/ARM SWELLING Time Seen by Provider: 04/04/20 17:22 Primary Care Provider: LISSETTE CROCKETT NP [Primary Care Provider] - Follow up as needed Information source: Patient Notes: ED Medical Screen ([facility]) - General Chief Complaint: Abdominal Pain Stated Complaint: FACIAL SWELLING/ARM SWELLING Time Seen by Provider: 04/04/20 17:22 Primary Care Provider: LISSETTE CROCKETT NP [Primary Care Provider] - Follow up as needed Information source: Patient Notes: Patient presents complaining of abdominal pain nausea with facial and hand swelling. Patient was just discharged from [facility] 4 days ago after a 3- week stay for pancreatitis. Patient did have a pancreatic biopsy performed during her hospital admission. Patient with a previous history of hypertension, renal cancer, lung cancer and has had a previous nephrectomy. Patient tachycardic in triage TRAVEL OUTSIDE OF THE [place] IN LAST 30 DAYS: No - Related Data Allergies/Adverse Reactions: sulfamethoxazole [From Bactrim] Allergy (Verified 12/29/19 11:47) trimethoprim [From Bactrim] Allergy (Verified 12/29/19 11:47) aspirin [Aspirin] Adverse Reaction (Verified 12/29/19 11:47) Past Medical History - Social History Family history: Reviewed & Not Pertinent - Past Medical History Cardiac Medical History: Reports: Hx Congestive Heart Failure, Hx Coronary [place] Disease, Hx Heart Attack - 2013, Hx Hypercholesterolemia, Hx Hypertension Pulmonary Medical History: Reports: Hx Bronchitis Denies: Hx Asthma, Hx COPD, Hx Pneumonia, Hx Tuberculosis Neurological Medical History: Reports: Hx Cerebrovascular Accident - stroke 03/2014 while unresponsive following abd surgical complication. Denies: Hx Seizures Endocrine Medical History: Denies: Hx Diabetes Mellitus Type 1, Hx Diabetes Mellitus Type 2, Hx Hyperthyroidism, Hx Hypothyroidism Renal/ Medical History: Reports: Hx End Stage Renal Disease - kidney cancer, Hx Renal Insufficiency. Denies: Hx Peritoneal Dialysis Malignancy Medical History: Reports: Hx Lung Cancer - Right upper partial lobectomy 11/09/2018., Hx Pancreatic Cancer - Mass to tail pancreas, July 2015. Did not light up on PET scan., Hx Renal (Kidney) Cancer - Renal cell carcinoma with left nephrectomy 2007. GI Medical History: Reports: Hx Gastritis, Hx Gastroesophageal Reflux Disease. Denies: Hx Cirrhosis, Hx Crohn's Disease, Hx Diverticulitis, Hx Hepatitis, Hx Ulcerative Colitis Musculoskeltal Medical History: Reports Hx Arthritis - Right hip DJD., Reports Hx Gout Skin Medical History: Denies Hx Eczema, Denies Hx Psoriasis Psychiatric Medical History: Denies: Hx Depression Infectious Medical History: Denies: Hx Hepatitis Past Surgical History: Reports: Hx Abdominal Surgery - HERNIA, PERFORATED BOWEL, Hx Cholecystectomy, Hx Herniorrhaphy - Umbilical hernia repair complicated by bowel perforation and peritonitis, Hx Kidney (Renal Surgery) - Left nephrectomy for renal cell carcinoma, Hx Orthopedic Surgery - Right patella surgery for dislocation,, Hx Vascular Surgery - Port placed in right upper arm 01/19/2019. Retinal detachment repair., Other - EGD to evaluate pancreatic mass. Right upper partial lobectomy 11/09/2018.. Denies: Hx Hysterectomy - Immunizations Hx Diphtheria, Pertussis, Tetanus Vaccination: No Physical Exam - Vital signs Vitals: Temp Pulse Resp BP Pulse Ox 98.0 F 144 H 18 126/96 H 96 04/04/20 16:49 04/04/20 16:49 04/04/20 16:49 04/04/20 16:49 04/04/20 16:49 Course - Vital Signs Vital signs: Temp Pulse Resp BP Pulse Ox 98.0 F 144 H 33 H 121/96 H 98 04/04/20 16:49 04/04/20 16:49 04/04/20 18:07 04/04/20 18:07 04/04/20 18:16 - Laboratory Result Diagrams: 04/04/20 17:37 04/04/20 17:37 Laboratory results interpreted by me: 04/04/20 04/04/20 04/04/20 17:37 17:37 17:37 RBC 3.29 L Hgb 9.4 L Hct 28.3 L RDW 18.2 H Plt Count 122 L Band Neutrophils % 1 L Potassium 2.9 L* Carbon Dioxide 21 L Creatinine 1.33 H Est GFR ( Amer) 49 L Est GFR (MDRD) Non-Af 40 L Glucose 123 H Direct Bilirubin 0.6 H NT-Pro-B Natriuret Pep 5540 H Total Protein 5.9 L Albumin 2.6 L Doctor's Discharge - Discharge Referrals: LISSETTE CROCKETT NP [Primary Care Provider] - Follow up as needed
--- NOTE | 2020-04-04 19:00 | ER Document Report ---
ED Medical Screen (E) - General Chief Complaint: Abdominal Pain Stated Complaint: FACIAL SWELLING/ARM SWELLING Time Seen by Provider: 04/04/20 17:22 Primary Care Provider: LISSETTE CROCKETT NP [Primary Care Provider] - Follow up as needed Information source: Patient Notes: 04/04/20 17:26 - ED Nursing Note by RANDY CALIX Num: [id number] : 1955 Patient Age: 64 Pt c/o severe lower mid abd pain, nausea, facial swelling, and hand swelling. Pt was DC thursday from [facility]EDS AT [facility] with pancreatitis where she was admitted x 3 weeks. She was reported to have a cyst on the pancrease requiring surgical biopsy. Pt accompanied with daughter and report decreased PO intake since coming home with no appetitie. Pt appears to be in severe discomfort. She reports taking her pain medication this morning without relief. She has history of kidney CA with kidney removal, lung ca with partial lobectomy, HTN ED Medical Screen ([facility] notes) - General Chief Complaint: Abdominal Pain Stated Complaint: FACIAL SWELLING/ARM SWELLING Time Seen by Provider: 04/04/20 17:22 Primary Care Provider: LISSETTE CROKCETT NP [Primary Care Provider] - Follow up as needed Information source: Patient Notes: Patient presents complaining of abdominal pain nausea with facial and hand swelling. Patient was just discharged from [facility] 4 days ago after a 3- week stay for pancreatitis. Patient did have a pancreatic biopsy performed during her hospital admission. Patient with a previous history of hypertension, renal cancer, lung cancer and has had a previous nephrectomy. Patient tachycardic in triage MY NOTES 64-year-old female arrives with chief complaint of abdominal pain with facial and hand edema. Patient is status post hospitalization at [facility] after 3-week hospitalization. She got out 4 days ago. She has a prior history of hypertension lung cancer nephrectomy because of renal cancer and CHF acute pancreatitis chronic nausea vomiting with gastritis anemia UTI pancytopenia GERD hypokalemia hyperglycemia pleural effusion pneumonitis and pneumonia in the past. Her daughter Polina is a main historian but patient is a fair historian herself. Her daughter reports her mother developed a decubitus ulcer while in [facility] and family and she had been turning the patient every 2 hours because of the sheng-sacral decubitus. Patient also developed a pneumonia while she was in [facility] because of pancreatitis. Patient now has right extensor forearm edema left hand edema and left foot edema with pain as well as right facial edema. TRAVEL OUTSIDE OF THE [place] IN LAST 30 DAYS: No - Related Data Allergies/Adverse Reactions: sulfamethoxazole [From Bactrim] Allergy (Verified 12/29/19 11:47) trimethoprim [From Bactrim] Allergy (Verified 12/29/19 11:47) aspirin [Aspirin] Adverse Reaction (Verified 12/29/19 11:47) Past Medical History - General Information source: Patient - Social History Family history: Reviewed & Not Pertinent - Past Medical History Cardiac Medical History: Reports: Hx Congestive Heart Failure, Hx Coronary Artery Disease, Hx Heart Attack - 2013, Hx Hypercholesterolemia, Hx Hypertension Pulmonary Medical History: Reports: Hx Bronchitis Denies: Hx Asthma, Hx COPD, Hx Pneumonia, Hx Tuberculosis Neurological Medical History: Reports: Hx Cerebrovascular Accident - stroke 03/2014 while unresponsive following abd surgical complication. Denies: Hx Seizures Endocrine Medical History: Denies: Hx Diabetes Mellitus Type 1, Hx Diabetes Mellitus Type 2, Hx Hyperthyroidism, Hx Hypothyroidism Renal/ Medical History: Reports: Hx End Stage Renal Disease - kidney cancer, Hx Renal Insufficiency. Denies: Hx Peritoneal Dialysis Malignancy Medical History: Reports: Hx Lung Cancer - Right upper partial lobectomy 11/09/2018., Hx Pancreatic Cancer - Mass to tail pancreas, July 2015. Did not light up on PET scan., Hx Renal (Kidney) Cancer - Renal cell carcinoma with left nephrectomy 2007. GI Medical History: Reports: Hx Gastritis, Hx Gastroesophageal Reflux Disease. Denies: Hx Cirrhosis, Hx Crohn's Disease, Hx Diverticulitis, Hx Hepatitis, Hx Ulcerative Colitis Musculoskeltal Medical History: Reports Hx Arthritis - Right hip DJD., Reports Hx Gout Skin Medical History: Denies Hx Eczema, Denies Hx Psoriasis Psychiatric Medical History: Denies: Hx Depression Infectious Medical History: Denies: Hx Hepatitis Past Surgical History: Reports: Hx Abdominal Surgery - HERNIA, PERFORATED BOWEL, Hx Cholecystectomy, Hx Herniorrhaphy - Umbilical hernia repair complicated by bowel perforation and peritonitis, Hx Kidney (Renal Surgery) - Left nephrectomy for renal cell carcinoma, Hx Orthopedic Surgery - Right patella surgery for dislocation,, Hx Vascular Surgery - Port placed in right upper arm 01/19/2019. Retinal detachment repair., Other - EGD to evaluate pancreatic mass. Right upper partial lobectomy 11/09/2018.. Denies: Hx Hysterectomy - Immunizations Hx Diphtheria, Pertussis, Tetanus Vaccination: No Review of Systems - Review of Systems Constitutional: No symptoms reported, Recent illness EENT: See HPI, Other - facial edema Cardiovascular: No symptoms reported Respiratory: No symptoms reported Gastrointestinal: No symptoms reported Genitourinary: No symptoms reported Female Genitourinary: No symptoms reported Musculoskeletal: See HPI, Joint swelling Skin: No symptoms reported Hematologic/Lymphatic: No symptoms reported Neurological/Psychological: No symptoms reported Physical Exam - Vital signs Vitals: Temp Pulse Resp BP Pulse Ox 98.0 F 144 H 18 126/96 H 96 04/04/20 16:49 04/04/20 16:49 04/04/20 16:49 04/04/20 16:49 04/04/20 16:49 Interpretation: Hypertensive, Tachycardic, Tachypneic Course - Vital Signs Vital signs: Temp Pulse Resp BP Pulse Ox 98.0 F 144 H 19 153/98 H 93 04/04/20 16:49 04/04/20 16:49 04/04/20 22:00 04/04/20 22:00 04/04/20 22:00 - Laboratory Result Diagrams: 04/04/20 17:37 04/04/20 17:37 Laboratory results interpreted by me: 04/04/20 04/04/20 04/04/20 17:37 17:37 17:37 RBC 3.29 L Hgb 9.4 L Hct 28.3 L RDW 18.2 H Plt Count 122 L Band Neutrophils % 1 L Potassium 2.9 L* Carbon Dioxide 21 L Creatinine 1.33 H Est GFR ( Amer) 49 L Est GFR (MDRD) Non-Af 40 L Glucose 123 H Direct Bilirubin 0.6 H NT-Pro-B Natriuret Pep 5540 H Total Protein 5.9 L Albumin 2.6 L Lipase Urine Protein Urine Ketones 04/04/20 04/04/20 17:37 18:40 RBC Hgb Hct RDW Plt Count Band Neutrophils % Potassium Carbon Dioxide Creatinine Est GFR ( Amer) Est GFR (MDRD) Non-Af Glucose Direct Bilirubin NT-Pro-B Natriuret Pep Total Protein Albumin Lipase 417.3 H Urine Protein 100 H Urine Ketones 20 H - Diagnostic Test Radiology reviewed: Reports reviewed - Right pleural effusion chronic; lung perfusion test was negative per radiology. Critical Care Note - Critical Care Note Comments: Patient refuses CTA because "she only has 1 kidney and was told by her nephro logist that she should not use any contrast dye." I discussed this case with Dr. Mode Ludwig and he advises IV albumin.. He did not advise any admission for this patient. Patient did receive potassium IV. She did receive IV albumin per nursing staff. I called Dr. Kwan at 0 100 and he advises following up with her personal doctor and small amount of Lasix for the lung effusion. Doctor's Discharge - Discharge Clinical Impression: Recurrent right pleural effusion, Tachycardia, Extremity edema, Hypokalemia, Pain management, low total protein level Malnutrition Qualifiers: Malnutrition type: protein-calorie malnutrition Protein-calorie malnutrition severity: mild Qualified Code(s): E44.1 - Mild protein-calorie malnutrition Condition: Fair Disposition: HOME, SELF-CARE Instructions: Abdominal Pain ([facility]) Additional Instructions: Follow-up with personal doctor tomorrow ; has your daughter call your physician. You were written for fentanyl patches low dose. Do not chew or otherwise allow fentanyl to be taken orally or rectally. This is to be used only topically and for pain management. Prescriptions: Fentanyl [Duragesic 12 Mcg/Hr Transdermal Patch] 1 each TD Q3D PRN 9 Days #3 patch.td72 PRN Reason: Potassium Chloride [Potassium Chloride 20 Meq Packet] 20 meq PO DAILY #10 packet Referrals: LISSETTE CROCKETT, [employer] [facility] [Primary Care Provider] - Follow up as needed
[2020-04-04 19:06] LABS: APPEARANCE,URINE CLEAR; BILIRUBIN,URINE NEGATIVE (NEGATIVE); COLOR,URINE YELLOW; GLUCOSE, URINE NEGATIVE (NEGATIVE); KETONES,URINE 20 mg/dL (NEGATIVE); LEUKOCYTE ESTERASE,URINE NEGATIVE (NEGATIVE); NITRITE,URINE NEGATIVE (NEGATIVE); PROTEIN,URINE 100 mg/dL (NEGATIVE); URINE SPECIFIC GRAVITY 1.012; UROBILINOGEN,URINE NEGATIVE mg/dL (<2.0)
[2020-04-04 19:09] LABS: ADD MANUAL MICROSCOPIC YES
[2020-04-04] MEDS ORDERED: POTASSI CL 20 MEQ/50 ML RIDER 20 MEQ/50 ML RTUPB IV ONE (19:13)
--- NOTE | 2020-04-04 19:18 | EKG REPORT ---
SEVERITY:- ABNORMAL ECG - SINUS TACHYCARDIA FIRST DEGREE AV BLOCK : Confirmed by: Pascual Rosenthal MD 04-Apr-2020 19:18:39
[2020-04-04] MEDS ORDERED: FAMOTIDINE INJ/PF 20 MG/2 ML SDV IV ONE (22:46)
[2020-04-04] MEDS ORDERED: DIPHENHYDRAMINE HCL 50 MG/ML VIAL IV ONE (22:47)
--- NOTE | 2020-04-04 23:43 | RADIOLOGY REPORT (SQ) ---
Perfusion lung scan: Clinical indication: 64-year old patient with tachycardia. Comparison: Chest radiograph performed 04/04/2020. Technique: Following the intravenous injection of 5.17 mCi of technetium 99m labeled MAA, planar images of the chest were obtained in multiple projections. No ventilation imaging was obtained. Findings: There is homogeneous radiotracer distribution in the lungs on perfusion images. No segmental or subsegmental defects are seen to suggest a pulmonary artery embolism. There is overall decreased perfusion within the right hemithorax which could be due to an underlying mass. There is a perfusion defect over the right upper lobe which appears to correspond with chain sutures and prior right lobectomy.. The patient also has a known large right effusion. Impression: No segmental or subsegmental defect is seen to suggest a pulmonary embolism.
[2020-04-05] MEDS ORDERED: FENTANYL CITRATE INJ/PF 100 MCG/2 ML AMPUL IV ONE (01:08)
[2020-04-05] MEDS: ALBUMIN HUMAN 12.5 GM/50 ML RTUINJ IV SCH ×2 (01:10→02:13)
[2020-04-05 03:34] VITALS: BP 150/97
== END 2020-04-05 03:44 | disposition home or self-care (01) ==
LOC: ER 16:31
DX: J90 Pleural effusion, not elsewhere classified (principal); R60.9 Edema, unspecified; R00.0 Tachycardia, unspecified; E87.6 Hypokalemia; G89.29 Other chronic pain; E77.8 Other disorders of glycoprotein metabolism; E44.1 Mild protein-calorie malnutrition; R10.30 Lower abdominal pain, unspecified; I50.9 Heart failure, unspecified; I25.10 Atherosclerotic heart disease of native coronary artery without angina pectoris; I25.2 Old myocardial infarction; E78.00 Pure hypercholesterolemia, unspecified; I13.2 Hypertensive heart and chronic kidney disease with heart failure and with stage 5 chronic kidney disease, or end stage renal disease; N18.6 End stage renal disease
CPT/HCPCS: 93005; 96376; 99285; 96361; 96375; 96365; 96366; 96367; 36415; 82150; 83690; 83735; 84132; 85025; 80053; 81001; 84484; 83880; 71045; 78580; 93010; A9540; P9047 ×2; J1200; J3010 ×2; J2405; J3480; J7030; S0028; J1642; Q9969

== ENCOUNTER 2020-04-07 15:30 | Inpatient (IN) | payer MEDICARE, MEDICAID ==
--- NOTE | 2020-04-07 15:36 | ER Document Report ---
ED General - General Stated Complaint: ABDOMINAL PAIN Time Seen by Provider: 04/07/20 15:35 TRAVEL OUTSIDE OF THE [place] IN LAST 30 DAYS: No - HPI Notes: 64-year-old female with an extensive medical history including history of lung cancer, chronic pancreatitis,ID CKD, CHF, gastritis, hypertension presents to the emergency room with severe abdominal pain that started at 9:00 this morning. Patient states that she has had 4 episodes of vomiting green bile. Family states that 130 she was vomiting they tried to get her upright because she was lying down, they state her eyes rolled in the back of her head and she went out for a few seconds, when she came to she seemed disorientated to the daughter. No history of seizures. Patient was seen in the emergency room on April 04 for similar issues, she was at that time evaluated there was a concern for PE, due to her having a nephrectomy, they were not inclined to doing any imaging with contrast so they opted for a V/Q scan which was negative for any PE. Her albumin was low, it appears that the provider transfused her after consulting with the hospitalist. Patient's lipase at the time was in the 400s. It appears that the patient was discharged home with strict instructions to return if her symptoms became worse. Patient currently is denying any chest pain shortness of breath, fevers or chills. Patient states that they had not seen her primary care doctor between the second and now, but they had been planning on it. Denies any history of GI bleeds, patient is not on any anticoagulants. Last bowel movement was last night, she did have a brown formed stool, no melena not black or tarry. 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 Patient does not drink alcohol, has never had alcohol induced pancreatitis. Patient has been managing her pain with fentanyl patches that was prescribed to her. Patient has not tried any [id number] medications to help manage her symptoms today. Denies any numbness or tingling bilateral lower legs or arms, no headache, blurred vision double vision or loss of vision. - Related Data Allergies/Adverse Reactions: sulfamethoxazole [From Bactrim] Allergy (Verified 12/29/19 11:47) trimethoprim [From Bactrim] Allergy (Verified 12/29/19 11:47) aspirin [Aspirin] Adverse Reaction (Verified 12/29/19 11:47) Past Medical History - General Information source: Patient, Relative - Social History Smoking Status: Former Smoker Family History: CAD, Hypertension - Past Medical History Cardiac Medical History: Reports: Hx Congestive Heart Failure, Hx Coronary Artery Disease, Hx Heart Attack - 2013, Hx Hypercholesterolemia, Hx Hypertension Pulmonary Medical History: Reports: Hx Bronchitis Denies: Hx Asthma, Hx COPD, Hx Pneumonia, Hx Tuberculosis Neurological Medical History: Reports: Hx Cerebrovascular Accident - stroke 03/2014 while unresponsive following abd surgical complication. Denies: Hx Seizures Endocrine Medical History: Denies: Hx Diabetes Mellitus Type 1, Hx Diabetes Mellitus Type 2, Hx Hyperthyroidism, Hx Hypothyroidism Renal/ Medical History: Reports: Hx End Stage Renal Disease - kidney cancer, Hx Renal Insufficiency. Denies: Hx Peritoneal Dialysis Malignancy Medical History: Reports: Hx Lung Cancer - Right upper partial lobectomy 11/09/2018., Hx Pancreatic Cancer - Mass to tail pancreas, July 2015. Did not light up on PET scan., Hx Renal (Kidney) Cancer - Renal cell carcinoma with left nephrectomy 2007. GI Medical History: Reports: Hx Gastritis, Hx Gastroesophageal Reflux Disease. Denies: Hx Cirrhosis, Hx Crohn's Disease, Hx Diverticulitis, Hx Hepatitis, Hx Ulcerative Colitis Musculoskeletal Medical History: Reports Hx Arthritis - Right hip DJD., Reports Hx Gout Skin Medical History: Denies Hx Eczema, Denies Hx Psoriasis Psychiatric Medical History: Denies: Hx Depression Infectious Medical History: Denies: Hx Hepatitis Past Surgical History: Reports: Hx Abdominal Surgery - HERNIA, PERFORATED BOWEL, Hx Cholecystectomy, Hx Herniorrhaphy - Umbilical hernia repair complicated by bowel perforation and peritonitis, Hx Kidney (Renal Surgery) - Left nephrectomy for renal cell carcinoma, Hx Orthopedic Surgery - Right patella surgery for dislocation,, Hx Vascular Surgery - Port placed in right upper arm 01/19/2019. Retinal detachment repair., Other - EGD to evaluate pancreatic mass. Right u pper partial lobectomy 11/09/2018.. Denies: Hx Hysterectomy - Immunizations Hx Diphtheria, Pertussis, Tetanus Vaccination: No Hx Pneumococcal Vaccination: 08/03/10 Review of Systems - Review of Systems Constitutional: No symptoms reported EENT: No symptoms reported Cardiovascular: No symptoms reported Respiratory: No symptoms reported Gastrointestinal: See HPI Genitourinary: No symptoms reported Female Genitourinary: No symptoms reported Musculoskeletal: No symptoms reported Skin: No symptoms reported Hematologic/Lymphatic: No symptoms reported Neurological/Psychological: See HPI Physical Exam - Vital signs Vitals: Temp Pulse Resp BP Pulse Ox 97.4 F 101 H 16 151/108 H 95 04/07/20 15:30 04/07/20 15:30 04/07/20 15:30 04/07/20 15:30 04/07/20 15:30 - Notes Notes: MEDICATIONS: I agree with the patient medications as charted by the RN. ALLERGIES: I agree with the allergies as charted by the RN. PAST MEDICAL HISTORY/PAST SURGICAL HISTORY: Reviewed and agree as charted by RN. SOCIAL HISTORY: Reviewed and agree as charted by RN. FAMILY HISTORY: No significant familial comorbid conditions directly related to patient complaint EXAM: Reviewed vital signs as charted by RN. PHYSICAL EXAMINATION: GENERAL: Acutely ill malnourished and in severe distress, writhing in pain HEAD: Atraumatic, normocephalic. EYES: Pupils equal round and reactive to light, extraocular movements intact, conjunctiva are normal. ENT: Nares patent, oropharynx clear without exudates. Moist mucous membranes. NECK: Normal range of motion, supple without lymphadenopathy LUNGS: Breath sounds clear to auscultation bilaterally and equal. No wheezes rales or rhonchi. HEART: Regular rate and rhythm without murmurs ABDOMEN: Tender to palpation, slightly distended abdomen no guarding, no reboun d. No masses appreciated. No CVA tenderness appreciated Female : deferred Musculoskeletal: Normal range of motion, no pitting or edema. No cyanosis. NEUROLOGICAL: Cranial nerves grossly intact. Normal speech. Normal sensory, motor exams PSYCH: Normal mood, normal affect. SKIN: Warm, Dry, normal turgor, no rashes or lesions noted. Dictation was performed using [employer] voice recognition software Course - Re-evaluation Re-evalutation: 04/07/20 17:34 64-year-old female, afebrile, slightly tachycardic likely due to immense pain, nurses notes reviewed. Patient given 4 mg of morphine and Zofran to help manage her pain. Due to patient having a left nephrectomy, can only do imaging a CT abdomen pelvis without contrast, which is pending. CBC negative for leukocytosis, H&H does show a drop from when she was seen on April 04. Hemoglobin was 9.4 reduced down to 7.9 today, hematocrit was 28.3 and dropped to [address] stool negative. CT of head unremarkable. Lipase 1382. BNP 3,300. Patient was much more comfortable after receiving pain medication. consulted with Dr. Cohen, hospitalist, for admission for acute on chronic pancreatitis at 1730. CT abdomen pelvis without contrast pending. Discussed with Dr. Cohen patient's falling H&H but she does have a guaiac that is negative. Patient having a normal bowel movements, no melena. CT abdomen pelvis does show acute on chronic pancreatitis with pseudocysts with bilateral pleural effusions right greater than left. Patient excepted to the telemetry floor for the medical service. Patient and family were understanding of this plan of care and agreed with plan of care. 04/07/20 20:20 - Vital Signs Vital signs: Temp Pulse Resp BP Pulse Ox 97.4 F 101 H 18 151/108 H 96 04/07/20 15:41 04/07/20 15:30 04/07/20 19:53 04/07/20 19:53 04/07/20 19:53 - Laboratory Result Diagrams: 04/07/20 16:06 04/07/20 16:06 Laboratory results interpreted by me: 04/07/20 04/07/20 04/07/20 16:06 16:06 16:06 RBC 2.81 L Hgb 7.9 L Hct 24.0 L RDW 18.1 H Plt Count 115 L Band Neutrophils % 2 L Metamyelocytes % 2 H Myelocytes % 2 H Promyelocytes % 1 H Sodium 132.6 L Potassium 3.2 L Creatinine 1.26 H Est GFR ( Amer) 52 L Est GFR (MDRD) Non-Af 43 L Glucose 115 H Calcium 8.0 L Direct Bilirubin 0.5 H C-Reactive Protein 62.0 H NT-Pro-B Natriuret Pep 3300 H Total Protein 4.5 L Albumin 2.1 L Lipase 1382.0 H - EKG Interpretation by Dc EKG shows normal: Sinus rhythm Rate: Normal Rhythm: NSR [place]/QRS: Left axis deviation Voltage: Increased voltage When compared to previous EKG there are: No significant change Discharge - Discharge Clinical Impression: Pancreatitis Condition: Stable Disposition: ADMITTED INPATIENT Admitting Provider: Vicki (Hospitalist) Unit Admitted: Telemetry
[2020-04-07] MEDS ORDERED: ONDANSETRON HCL INJ/PF 4 MG/2 ML SDV IV ONE (16:02)
[2020-04-07] MEDS ORDERED: MORPHINE SULFATE 10 MG/ML INJ IV ONE (16:02)
[2020-04-07 16:23] LABS: MEAN CORPUSCULAR HEMOGLOBIN 28.1 pg (27.0-33.4); MEAN CORPUSCULAR VOLUME 85 fl (80-97); PLATELET COUNT 115 10^3/uL (150-450); RED BLOOD COUNT 2.81 10^6/uL (3.72-5.28); RED CELL DISTRIBUTION WIDTH 18.1 % (11.5-14.0)
[2020-04-07 16:38] LABS: ALBUMIN 2.1 g/dL (3.5-5.0); ALKALINE PHOSPHATASE 77 U/L (38-126); ANION GAP 7 (5-19); ASPARTATE AMINO TRANSFERASE 24 U/L (14-36); BILIRUBIN,DIRECT 0.5 mg/dL (0.0-0.4); BILIRUBIN,TOTAL 0.7 mg/dL (0.2-1.3); BLOOD UREA NITROGEN 16 mg/dL (7-20); CARBON DIOXIDE 24 mmol/L (22-30); CHLORIDE 102 mmol/L (98-107); GLUCOSE 115 mg/dL (75-110); POTASSIUM 3.2 mmol/L (3.6-5.0); TOTAL PROTEIN 4.5 g/dL (6.3-8.2)
[2020-04-07 16:39] LABS: HEMOGLOBIN 7.9 g/dL (12.0-15.5)
[2020-04-07 16:42] LABS: ABSOLUTE LYMPHOCYTES# (MANUAL) 0.8 10^3/uL (0.5-4.7); ABSOLUTE MONOCYTES # (MANUAL) 0.3 10^3/uL (0.1-1.4); BAND NEUTROPHILS % (MANUAL) 2 % (3-5); BASOPHILS % (MANUAL) 0 % (0-2); EOSINOPHILS % (MANUAL) 0 % (0-6); LYMPHOCYTES % (MANUAL) 16 % (13-45); METAMYELOCYTES % (MANUAL) 2 % (0-1); MONOCYTES % (MANUAL) 7 % (3-13); SEGMENTED NEUTROPHILS % (MAN) 66 % (42-78); TOTAL CELLS COUNTED 100
[2020-04-07 16:44] LABS: SMUDGE CELLS PRESENT; TOXIC GRANULATION 1+
[2020-04-07 16:45] LABS: ANISOCYTOSIS 1+; MYELOCYTES % (MANUAL) 2 % (0); OVALOCYTES 1+; PLATELET COMMENT DECREASED; POIKILOCYTOSIS SLIGHT; POLYCHROMASIA SLIGHT; PROMYELOCYTES % (MANUAL) 1 % (0); TARGET CELLS SLIGHT
[2020-04-07 16:48] LABS: NT PRO BNP 3300 pg/mL (<125); TROPONIN I < 0.012 ng/mL
--- NOTE | 2020-04-07 17:04 | RADIOLOGY REPORT (SQ) ---
EXAM DESCRIPTION: CHEST 2 VIEWS IMAGES COMPLETED DATE/TIME: 04/07/2020 4:49 pm REASON FOR STUDY: Abdominal pain, syncopal event COMPARISON: Chest x-ray 04/04/2020, 02/14/2020. CT chest 02/09/2020. EXAM PARAMETERS: NUMBER OF VIEWS: two views TECHNIQUE: Digital Frontal and Lateral radiographic views of the chest acquired. RADIATION DOSE: NA LIMITATIONS: none FINDINGS: LUNGS AND PLEURA: Postsurgical changes with volume loss at the right lung. There is a sma ll right pleural effusion with airspace opacity at the right lung base. No pneumothorax. MEDIASTINUM AND HILAR STRUCTURES: Postsurgical changes at the right suprahilar region. HEART AND VASCULAR STRUCTURES: The heart is not enlarged. No overt vascular congestion. BONES: No acute findings. HARDWARE: There is a right-sided PICC line with the tip overlying the atrial caval junction. OTHER: There is elevation of the right hemidiaphragm. IMPRESSION: Postsurgical changes with volume loss at the right lung. Small right pleural effusion w ith airspace opacity at the right lung base, may be secondary to atelectasis or pneumonia. TECHNICAL DOCUMENTATION: JOB ID: [id number] [employer]- All Rights Reserved Reading location - IP/workstation name: [email or web address]
--- NOTE | 2020-04-07 17:33 | RADIOLOGY REPORT (SQ) ---
EXAM DESCRIPTION: CT HEAD WITHOUT IMAGES COMPLETED DATE/TIME: 04/07/2020 5:22 pm REASON FOR STUDY: Abdominal pain, syncopal event COMPARISON: CT brain 12/10/2018. MRI head 08/22/2019. TECHNIQUE: Axial images acquired through the brain without intravenous contrast. Images reviewed wi th bone, brain and subdural windows. Images stored on PACS. All CT scanners at this facility use dose modulation, iterative reconstruction, and/or weight based d osing when appropriate to reduce radiation dose to as low as reasonably achievable (ALARA). [facility]: Dose Right [facility]: CareDose [facility]: Dose Right [facility]: Teradose 4D [facility]: [employer] RADIATION DOSE: CT Rad equipment meets quality standard of care and radiation dose reduction techniq ues were employed. CTDIvol: 53.2 mGy. DLP: 964 mGy-cm. mGy. LIMITATIONS: None. FINDINGS: VENTRICLES: Normal size and contour. CEREBRUM: No mass effect. No hemorrhage. No midline shift. Normal paul/white matter differentiatio n. No evidence for acute territorial infarction. CEREBELLUM: No mass effect. No hemorrhage. No alteration of density. No evidence for acute infarct ion. EXTRAAXIAL SPACES: No fluid collections. ORBITS AND GLOBE: Symmetrical contour of the globes. CALVARIUM: No depressed skull fracture. PARANASAL SINUSES: There is mild mucosal thickening at the bilateral maxillary sinuses. SOFT TISSUES: No hematoma. IMPRESSION: No acute intracranial hemorrhage or acute territorial infarct. EVIDENCE OF ACUTE STROKE: NO. COMMENT: Quality ID # [id number]: Final reports with documentation of one or more dose reduction techniques (e.g., Automated exposure control, adjustment of the mA and/or kV according to patient size, use of iterative reconstruction technique) TECHNICAL DOCUMENTATION: JOB ID: [id number] 2010 [employer]- All Rights Reserved Reading location - IP/workstation name: [email or web address]
[2020-04-07] MEDS ORDERED: NORMAL SALINE 1000 ML 1,000 ML IV ONE ×2 (17:37→17:58)
--- NOTE | 2020-04-07 17:44 | RADIOLOGY REPORT (SQ) ---
EXAM DESCRIPTION: CT ABD/PELVIS NO ORAL OR IV IMAGES COMPLETED DATE/TIME: 04/07/2020 5:22 pm REASON FOR STUDY: severe abd pain History of pancreatic cancer, lung cancer. COMPARISON: CT abdomen and pelvis 02/11/2020. TECHNIQUE: CT scan of the abdomen and pelvis performed without intravenous or oral contrast. Images reviewed with lung, soft tissue, and bone windows. Reconstructed coronal and sagittal MPR images revi ewed. All images stored on PACS. All CT scanners at this facility use dose modulation, iterative reconstruction, and/or weight based d osing when appropriate to reduce radiation dose to as low as reasonably achievable (ALARA). [facility]: Dose Right [facility]: CareDose [facility]: Dose Right [facility]: Teradose 4D [facility]: [employer] RADIATION DOSE: CT Rad equipment meets quality standard of care and radiation dose reduction techniq ues were employed. CTDIvol: 14.4 mGy. DLP: 759 mGy-cm.mGy. LIMITATIONS: None. FINDINGS: LOWER CHEST: There are bilateral pleural effusions, moderate on the right and small on the left with atelectasis at the adjacent lung bases. NON-CONTRASTED LIVER, SPLEEN, ADRENALS: Evaluation limited by lack of IV contrast. No identified sign ificant masses. PANCREAS: Coarse calcifications are noted at the pancreas, suggestive of chronic pancreatitis. There is peripancreatic edema and soft tissue stranding. Interval development of fluid collections along the pancreatic body, the largest measuring 6.2 x 3.8 cm. GALLBLADDER: Surgically absent. There is mild dilation of the common bile duct measuring 11 mm. RIGHT KIDNEY AND URETER: Assessment for masses limited by lack of intravenous contrast. No signific ant calcifications. No hydronephrosis or hydroureter. LEFT KIDNEY AND URETER: The left kidney is surgically absent. AORTA AND RETROPERITONEUM: Atherosclerotic calcifications at the abdominal aorta and its branches. N o abdominal aortic aneurysm. BOWEL AND PERITONEAL CAVITY: No dilated bowel loops to suggest obstruction. Small amount of ascites. No free air. Postsurgical changes are noted at bowel loops. APPENDIX: Not visualized. PELVIS, BLADDER, AND ABDOMINAL WALL:The urinary bladder is partially distended. The uterus is presen t. Small amount of free pelvic fluid. Status post ventral hernia repair with mesh placement. There is diffuse soft tissue edema at the abdominal wall. BONES: Multilevel degenerative changes at the spine. IMPRESSION: 1. Acute on chronic pancreatitis. Interval development of peripancreatic fluid collecti ons, may represent pseudocysts. Followup CT or MRI in 3 months recommended to re-evaluate and exclud e cystic neoplasm. 2. Small ascites. Anasarca. 3. Status post cholecystectomy. Mild dilation of the common bile duct. 4. Status post left nephrectomy. 5. Bilateral pleural effusions, right more than left. COMMENT: Quality ID # [id number]: Final reports with documentation of one or more dose reduction techniques (e.g., Automated exposure control, adjustment of the mA and/or kV according to patient size, use of iterative reconstruction technique) TECHNICAL DOCUMENTATION: JOB ID: [id number] [employer]- All Rights Reserved Reading location - IP/workstation name: [email or web address]
[2020-04-07] MEDS ORDERED: IPRATROPIUM/ALBUTEROL 0.5-2.5 MG/3 ML AMPUL NEB PRN (19:04)
[2020-04-07] MEDS ORDERED: ONDANSETRON 4 MG TAB.RAPDIS PO PRN (19:04)
[2020-04-07] MEDS ORDERED: ACETAMINOPHEN 325 MG TABLET PO PRN (19:04)
[2020-04-07] MEDS ORDERED: PIPERACILLIN/TAZOBACTAM 3.375 GM VIAL IV SCH (19:15)
[2020-04-07] MEDS: HYDROMORPHONE HCL INJ/PF 2 MG/ML AMPULE IV PRN (19:53)
[2020-04-07] MEDS: ONDANSETRON HCL INJ/PF 4 MG/2 ML SDV IV PRN (19:53)
[2020-04-07] MEDS: NORMAL SALINE 1000 ML 1,000 ML IV PRN (19:54)
--- NOTE | 2020-04-07 20:07 | PDOC H&P ---
History of Present Illness Admission Date/PCP: LISSETTE CROCKETT NP History of Present Illness: JIHAN MORA is a 64 year old female with a very complicated past medical history significant for RCC status post unilateral nephrectomy, lung cancer status post chemoradiation and lobectomy, accidental bowel perforation during surgery with partial bowel resection, chronic recurrent pancreatitis, ischemic stroke, AK, CKD, CHF who presents with a 1 day history of severe acute abdominal pain consistent with previous episodes of acute on chronic pancreatitis however patient states this is much worse pain than she has ever had in the past. Patient was seen in the ED on 04/04 and she had a VQ scan that was negative for PE. She does have significant left upper extremity and periorbital edema on exam and this may have been the reason they tried to rule out PE at the time. It is difficult to give her IV contrast safely as she only has 1 kidney and already has CKD in her single kidney. Patient has been seen at [facility] and [facility] for previous surgical complications and pancreatitis. Most recently, last month she was admitted to [facility] and treated for acute on chronic pancreatitis where she subsequently developed pneumonia as well. She follows with a GI physician Dr. Mcintyre at [facility] but has not been to see him in some time because she is frequently admitted to one hospital or another. Her lipase here is approximately 1300, BNP 3300, CRP 62, troponin negative, triglycerides 95, lactate 0.8. LFTs unremarkable. She has mild hyponatremia and hypokalemia. Of note, patient is wearing a fentanyl patch on her abdomen on admission. also states that [facility] she had an ERCP with endoscopic ultrasound which showed a polyp in her stomach which they removed and also they were performed a needle aspiration of peripancreatic fluid from a pseudocyst. On CT scan on admission here it seems that she has developed this peripancreatic fluid and pseudocyst again and she also has some abdominal wall inflammation and ascites. She has no fevers/chills but she has been having significant nausea/vomiting. She started on IV fluids, general surgery was consulted, and GI was consulted although they may not be available immediately. Past Medical History Cardiac Medical History: Reports: Congestive Heart Failure, Coronary Artery Disease, Myocardial Infarction - 2014, Hyperlipidema, Hypertension Pulmonary Medical History: Reports: Bronchitis Denies: Asthma, Chronic Obstructive Pulmonary Disease (COPD), Pneumonia, Tuberculosis Neurological Medical History: Reports: Ischemic CVA Denies: Seizures Endocrine Medical History: Denies: Diabetes Mellitus Type 1, Diabetes Mellitus Type 2, Hyperthyroidism, Hypothyroidism Renal/ Medical History: Reports: End Stage Renal Disease - kidney cancer Malignancy Medical History: Reports: Lung Cancer - Right upper partial lobectomy 11/09/2018., Pancreatic Cancer - Mass to tail pancreas, July 2015. Did not light up on PET scan., Renal (Kidney) Cancer - Renal cell carcinoma with left nephrectomy 2007. GI Medical History: Reports: Gastroesophageal Reflux Disease Denies: Cirrhosis, Crohn's Disease, Diverticulitis, Hepatitis, Ulcerative Colitis Musculoskeltal Medical History: Reports: Arthritis - Right hip DJD., Gout Skin Medical History: Denies: Eczema, Psoriasis Psychiatric Medical History: Denies: Depression Hematology: Reports: Anemia - Chronic Denies: Bleeding Tendencies Past Surgical History Past Surgical History: Reports: Cholecystectomy, Herniorrhaphy - Umbilical hernia repair complicated by bowel perforation and peritonitis, Orthopedic Surgery - Right patella surgery for dislocation,, Vascular Surgery - Port placed in right upper arm 01/19/2019. Retinal detachment repair., Other - EGD to evaluate pancreatic mass. Right upper partial lobectomy 11/09/2018. Denies: Hysterectomy Social History Smoking Status: Former Smoker Frequency of Alcohol Use: None Hx Recreational Drug Use: No Drugs: None Hx Prescription Drug Abuse: No - Advance Directive Resuscitation Status: Full Code Surrogate healthcare decision maker:: Cecy Fish Family History Family History: CAD, CVA, Hypertension Parental Family History Reviewed: Yes Children Family History Reviewed: Yes Sibling(s) Family History Reviewed.: Yes Medication/Allergy Home Medications: Sodium Bicarbonate [Sodium Bicarbonate 650 mg Tablet] 650 mg PO DAILY 09/09/19 Amlodipine Besylate [Norvasc 10 mg Tablet] 10 mg PO DAILY #30 tablet 09/13/19 Calcitriol [Rocaltrol 0.5 mcg Capsule] 0.5 mcg PO DAILY 02/11/20 Carboxymethylcellulose Sodium [Lubricant Eye Drop] 1 drop OU DAILYP PRN 02/11/20 Acetaminophen [Tylenol 325 mg Tablet] 650 mg PO Q4HP PRN tablet 02/18/20 Amoxicillin/Potassium Clav [Augmentin 875-125 Tablet] 1 tab PO Q12 #10 tablet 02/18/20 Dronabinol [Marinol 2.5 mg Capsule] 2.5 mg PO BID #60 capsule 02/18/20 Lipase/Protease/Amylase [Pancreaze-10 Capsule.] 1 cap PO BIDACBS #90 capsule. 02/18/20 Nystatin [Mycostatin 500,000 Unit/5 ml Susp Udcup] 100,000 unit PO Q6 #20 udc 02/18/20 Oxycodone HCl/Acetaminophen [Percocet 5-325 mg Tablet] 1 tab PO Q6HP PRN #20 tablet 02/18/20 Prednisone [Deltasone 20 mg Tablet] 2 tab PO DAILY 4 Days #8 tablet 02/21/20 Fentanyl [Duragesic 12 Mcg/Hr Transdermal Patch] 1 each TD Q3D PRN 9 Days #3 patch.[id number] 04/05/20 Potassium Chloride [Potassium Chloride 20 Meq Packet] 20 meq PO DAILY #10 packet 04/05/20 Allergies/Adverse Reactions: sulfamethoxazole [From Bactrim] Allergy (Verified 12/29/19 11:47) trimethoprim [From Bactrim] Allergy (Verified 12/29/19 11:47) aspirin [Aspirin] Adverse Reaction (Verified 12/29/19 11:47) Review of Systems All systems: reviewed and no additional remarkable complaints except as stated - Review of systems per HPI, otherwise negative Physical Exam Vital Signs: Temp Pulse Resp BP Pulse Ox 97.4 F 101 H 16 158/104 H 95 04/07/20 15:41 04/07/20 15:30 04/07/20 18:01 04/07/20 18:01 04/07/20 18:01 Intake & Output 04/06/20 04/07/20 04/08/20 06:59 06:59 06:59 Weight 69.7 kg General appearance: PRESENT: cooperative, mild distress Head exam: PRESENT: atraumatic, normocephalic Eye exam: PRESENT: conjunctiva pink, periorbital swelling. ABSENT: scleral icterus Mouth exam: PRESENT: moist Respiratory exam: PRESENT: clear to auscultation marianna. ABSENT: rales, rhonchi, wheezes Cardiovascular exam: PRESENT: RRR. ABSENT: diastolic murmur, rubs, systolic murmur GI/Abdominal exam: PRESENT: guarding, normal bowel sounds, soft, tenderness - Severe even to light touch. ABSENT: distended, mass, organolmegaly, rebound Rectal exam: PRESENT: deferred Extremities exam: PRESENT: +1 edema - Left upper extremity. ABSENT: pedal edema Neurological exam: PRESENT: alert, awake, oriented to person, oriented to place, oriented to time, oriented to situation Psychiatric exam: PRESENT: appropriate affect, normal mood Skin exam: PRESENT: dry, intact, warm Results Laboratory Results: 04/07/20 16:06 04/07/20 16:06 04/07/20 04/07/20 04/07/20 16:06 16:06 16:06 WBC 4.0 RBC 2.81 L Hgb 7.9 L Hct 24.0 L MCV 85 MCH 28.1 MCHC 33.0 RDW 18.1 H Plt Count 115 L Seg Neutrophils % Not Reportable Sodium 132.6 L Potassium 3.2 L Chloride 102 Carbon Dioxide 24 Anion Gap 7 BUN 16 Creatinine 1.26 H Est GFR ( Amer) 52 L Glucose 115 H Lactic Acid 0.8 Calcium 8.0 L Magnesium 1.7 Total Bilirubin 0.7 AST 24 Alkaline Phosphatase 77 C-Reactive Protein 62.0 H Total Protein 4.5 L Albumin 2.1 L Triglycerides Lipase 1382.0 H 04/07/20 16:06 WBC RBC Hgb Hct MCV MCH MCHC RDW Plt Count Seg Neutrophils % Sodium Potassium Chloride Carbon Dioxide Anion Gap BUN Creatinine Est GFR ( Amer) Glucose Lactic Acid Calcium Magnesium Total Bilirubin AST Alkaline Phosphatase C-Reactive Protein Total Protein Albumin Triglycerides 95 Lipase 04/07/20 16:06 Troponin I < 0.012 NT-Pro-B Natriuret Pep 3300 H Impressions: Chest X-Ray 04/07/20 15:59 IMPRESSION: Postsurgical changes with volume loss at the right lung. Small right pleural effusion with airspace opacity at the right lung base, may be secondary to atelectasis or pneumonia. Head CT 04/07/20 15:59 IMPRESSION: No acute intracranial hemorrhage or acute territorial infarct. EVIDENCE OF ACUTE STROKE: NO. Abdomen/Pelvis CT 04/07/20 16:27 IMPRESSION: 1. Acute on chronic pancreatitis. Interval development of peripancreatic fluid collections, may represent pseudocysts. Followup CT or MRI in 3 months recommended to re-evaluate and exclude cystic neoplasm. 2. Small ascites. Anasarca. 3. Status post cholecystectomy. Mild dilation of the common bile duct. 4. Status post left nephrectomy. 5. Bilateral pleural effusions, right more than left. Assessment and Plan - Diagnosis (1) Acute on chronic pancreatitis Is this a current diagnosis for this admission?: Yes Plan: Lipase 1300 on admission, severe abdominal pain even to light touch Unclear etiology of pancreatitis, per patient and family pancreatitis started 03/2019 she has had recurrences since then Denies any heavy alcohol use now or in the past, does not appear to be on any specific drugs that could cause pancreatitis at home, triglycerides normal now and in the past Possible AIP, check IgG4 IV fluids N.p.o. with ice chips, gradually advance diet as tolerated Antiemetics GI consulted General surgery consulted for severe abdominal pain, very complicated abdomen surgical history Continued home pain medication fentanyl patch, added IV Dilaudid as needed (2) Recurrent right pleural effusion Is this a current diagnosis for this admission?: Yes Plan: Unclear etiology, possibly due to previous lung cancer and also the treatment for this including lobectomy Stable for now, not requiring supplemental oxygen (3) Chronic pain syndrome Is this a current diagnosis for this admission?: Yes (4) CHF (congestive heart failure) Qualifiers: Heart failure type: unspecified Heart failure chronicity: chronic Qualified Code(s): I50.9 - Heart failure, unspecified Is this a current diagnosis for this admission?: Yes Plan: Presumed diastolic as previous echo showed normal systolic function, no exacerbation this admission, BNP approximately the same as multiple previous values and records (5) Chronic renal insufficiency, stage III (moderate) Is this a current diagnosis for this admission?: Yes Plan: History of RCC status post single nephrectomy Avoid IV contrast if possible Trend BMP (6) Extremity edema Is this a current diagnosis for this admission?: Yes Plan: Left upper extremity edema unclear etiology, possibly lymphatic outflow obstruction from previous surgeries and radiation Left upper extremity PVL to rule out DVT He also has periorbital edema of unclear etiology (7) Hypertension Qualifiers: Hypertension type: essential hypertension Qualified Code(s): I10 - Essential (primary) hypertension Is this a current diagnosis for this admission?: Yes Plan: Stable (8) Pancytopenia Is this a current diagnosis for this admission?: Yes Plan: Check flow cytometry of peripheral blood, she is probably high risk to develop hematologic malignancies given her extensive history of chemotherapy and radia tion and multiple cancers - Time Time Spent with patient: 25-34 minutes Anticipated Discharge Disposition: Intermediate Facility Anticipated Discharge Timeframe: within 72 hours - Inpatient Certification Based on my medical assessment, after consideration of the patient's comorbi dities, presenting symptoms, or acuity I expect that the services needed warrant INPATIENT care.: Yes I certify that my determination is in accordance with my understanding of Medicare's requirements for reasonable and necessary INPATIENT services [42 CFR 412.3e].: Yes Medical Necessity: Significant Comorbidiites Make Outpatient Treatment Too Risky, Need Close Monitoring Due to Risk of Patient Decompensation, Need For IV Fluids, Need for Pain Control, Risk of Complication if Not Cared For in Hospital, Risk of Diagnosis Which Will Require Inpatient Eval/Care/Monitoring
--- NOTE | 2020-04-07 20:08 | ADVANCED CARE ---
- Diagnosis (1) Acute on chronic pancreatitis Diagnosis Current: Yes (2) Recurrent right pleural effusion Diagnosis Current: Yes (3) Chronic pain syndrome Diagnosis Current: Yes (4) CHF (congestive heart failure) Diagnosis Current: Yes (5) Chronic renal insufficiency, stage III (moderate) Diagnosis Current: Yes (6) Extremity edema Diagnosis Current: Yes (7) Hypertension Diagnosis Current: Yes (8) Pancytopenia Diagnosis Current: Yes Attendance: Patient and Resuscitation Status: Full Code Discussion: All aspects of code status discussed with patient/POA including cardioversion, chest compressions, and intubation and the patient/POA indicated they wish to be full code MPOA is designated as: Cecy Fish Time Spent: Greater than 16 minutes
--- NOTE | 2020-04-07 20:11 | PDOC CONSULTATION ---
Consultation Consult Date: 04/07/20 Provider Consulted: ALEM MOSS Consult reason:: Acute on chronic pancreatitis History of Present Illness Admission Date/PCP: 04/07/20 19:13 LISSETTE CROCKETT NP History of Present Illness: JIHAN MORA is a 64 year old female, with history of cystectomy, left nephrectomy, chronic alcoholic pancreatitis with multiple episodes of flareup, who was recently admitted [facility] because of her chronic pancreatitis symptoms. She remained hospitalized for about 3 weeks, during the hospitalization she underwent an EGD which identified the presence of a gastric polyp. In addition, pancreatic pseudocysts were identified on CAT scan which have been confirmed on the current CAT scan of the abdomen pelvis. According to the patient's daughter, following the discharge after recent hospitalization, patient remained weak, unable to walk. Today, the patient woke up experiencing excruciating abdominal pain, she had a syncopal episode as she was trying to vomit. She was taken to the hospital by her family with the above symptoms. I have be consulted by the meeting hospitalist to provide recommendation for her treatment. Past Medical History Cardiac Medical History: Reports: Congestive Heart Failure, Coronary Artery Disease, Myocardial Infarction - 2013, Hyperlipidema, Hypertension Pulmonary Medical History: Reports: Bronchitis Denies: Asthma, Chronic Obstructive Pulmonary Disease (COPD), Pneumonia, Tuberculosis Neurological Medical History: Denies: Seizures Endocrine Medical History: Denies: Diabetes Mellitus Type 1, Diabetes Mellitus Type 2, Hyperthyroidism, Hypothyroidism Renal/ Medical History: Reports: End Stage Renal Disease - kidney cancer Malignancy Medical History: Reports: Lung Cancer - Right upper partial lobectomy 11/09/2018., Pancreatic Cancer - Mass to tail pancreas, July 2015. Did not light up on PET scan., Renal (Kidney) Cancer - Renal cell carcinoma with left nephrectomy 2007. GI Medical History: Reports: Gastroesophageal Reflux Disease Denies: Cirrhosis, Crohn's Disease, Diverticulitis, Hepatitis, Ulcerative Colitis Musculoskeltal Medical History: Reports: Arthritis - Right hip DJD., Gout Skin Medical History: Denies: Eczema, Psoriasis Psychiatric Medical History: Denies: Depression Hematology: Reports: Anemia - Chronic Denies: Bleeding Tendencies Past Surgical History Past Surgical History: Reports: Cholecystectomy, Herniorrhaphy - Umbilical hernia repair complicated by bowel perforation and peritonitis, Orthopedic Surgery - Right patella surgery for dislocation,, Vascular Surgery - Port placed in right upper arm 01/19/2019. Retinal detachment repair., Other - EGD to evaluate pancreatic mass. Right upper partial lobectomy 11/09/2018. Denies: Hysterectomy Social History Smoking Status: Never Smoker Frequency of Alcohol Use: None Hx Recreational Drug Use: No Drugs: None Hx Prescription Drug Abuse: No Family History Family History: CAD, Hypertension Parental Family History Reviewed: No Children Family History Reviewed: No Sibling(s) Family History Reviewed.: No Medication/Allergy Home Medications: Sodium Bicarbonate [Sodium Bicarbonate 650 mg Tablet] 650 mg PO DAILY 09/09/19 Amlodipine Besylate [Norvasc 10 mg Tablet] 10 mg PO DAILY #30 tablet 09/13/19 Calcitriol [Rocaltrol 0.5 mcg Capsule] 0.5 mcg PO DAILY 02/11/20 Carboxymethylcellulose Sodium [Lubricant Eye Drop] 1 drop OU DAILYP PRN 02/11/20 Acetaminophen [Tylenol 325 mg Tablet] 650 mg PO Q4HP PRN tablet 02/18/20 Amoxicillin/Potassium Clav [Augmentin 875-125 Tablet] 1 tab PO Q12 #10 tablet 02/18/20 Dronabinol [Marinol 2.5 mg Capsule] 2.5 mg PO BID #60 capsule 02/18/20 Lipase/Protease/Amylase [Pancreaze-10 Capsule.] 1 cap PO BIDACBS #90 capsule. 02/18/20 Nystatin [Mycostatin 500,000 Unit/5 ml Susp Udcup] 100,000 unit PO Q6 #20 udc 02/18/20 Oxycodone HCl/Acetaminophen [Percocet 5-325 mg Tablet] 1 tab PO Q6HP PRN #20 tablet 02/18/20 Prednisone [Deltasone 20 mg Tablet] 2 tab PO DAILY 4 Days #8 tablet 02/21/20 Fentanyl [Duragesic 12 Mcg/Hr Transdermal Patch] 1 each TD Q3D PRN 9 Days #3 patch.[id number] 04/05/20 Potassium Chloride [Potassium Chloride 20 Meq Packet] 20 meq PO DAILY #10 packet 04/05/20 Allergies/Adverse Reactions: sulfamethoxazole [From Bactrim] Allergy (Verified 12/29/19 11:47) trimethoprim [From Bactrim] Allergy (Verified 12/29/19 11:47) aspirin [Aspirin] Adverse Reaction (Verified 12/29/19 11:47) Physical Exam Vital Signs: Temp Pulse Resp BP Pulse Ox 97.4 F 101 H 16 158/104 H 95 04/07/20 15:41 04/07/20 15:30 04/07/20 18:01 04/07/20 18:01 04/07/20 18:01 Intake & Output 04/06/20 04/07/20 04/08/20 06:59 06:59 06:59 Weight 69.7 kg General appearance: PRESENT: mild distress Head exam: PRESENT: atraumatic, normocephalic Eye exam: PRESENT: EOMI Neck exam: PRESENT: full ROM Respiratory exam: PRESENT: clear to auscultation marianna Cardiovascular exam: PRESENT: RRR GI/Abdominal exam: PRESENT: firm, hypoactive bowel sounds, tenderness - Diffusely tender on superficial deep palpation, other - Multiple surgical scars Extremities exam: PRESENT: full ROM Musculoskeletal exam: PRESENT: full ROM Neurological exam: PRESENT: alert, awake, oriented to person, oriented to place, CN II-XII grossly intact Psychiatric exam: PRESENT: appropriate affect Skin exam: PRESENT: warm, other - Diffuse edema Results Laboratory Results: 04/07/20 16:06 04/07/20 16:06 04/07/20 04/07/20 04/07/20 16:06 16:06 16:06 WBC 4.0 RBC 2.81 L Hgb 7.9 L Hct 24.0 L MCV 85 MCH 28.1 MCHC 33.0 RDW 18.1 H Plt Count 115 L Seg Neutrophils % Not Reportable Sodium 132.6 L Potassium 3.2 L Chloride 102 Carbon Dioxide 24 Anion Gap 7 BUN 16 Creatinine 1.26 H Est GFR ( Amer) 52 L Glucose 115 H Lactic Acid 0.8 Calcium 8.0 L Magnesium 1.7 Total Bilirubin 0.7 AST 24 Alkaline Phosphatase 77 C-Reactive Protein 62.0 H Total Protein 4.5 L Albumin 2.1 L Triglycerides Lipase 1382.0 H 04/07/20 16:06 WBC RBC Hgb Hct MCV MCH MCHC RDW Plt Count Seg Neutrophils % Sodium Potassium Chloride Carbon Dioxide Anion Gap BUN Creatinine Est GFR ( Amer) Glucose Lactic Acid Calcium Magnesium Total Bilirubin AST Alkaline Phosphatase C-Reactive Protein Total Protein Albumin Triglycerides 95 Lipase 04/07/20 16:06 Troponin I < 0.012 NT-Pro-B Natriuret Pep 3300 H Impressions: Chest X-Ray 04/07/20 15:59 IMPRESSION: Postsurgical changes with volume loss at the right lung. Small right pleural effusion with airspace opacity at the right lung base, may be secondary to atelectasis or pneumonia. Head CT 04/07/20 15:59 IMPRESSION: No acute intracranial hemorrhage or acute territorial infarct. EVIDENCE OF ACUTE STROKE: NO. Abdomen/Pelvis CT 04/07/20 16:27 IMPRESSION: 1. Acute on chronic pancreatitis. Interval development of peripancreatic fluid collections, may represent pseudocysts. Followup CT or MRI in 3 months recommended to re-evaluate and exclude cystic neoplasm. 2. Small ascites. Anasarca. 3. Status post cholecystectomy. Mild dilation of the common bile duct. 4. Status post left nephrectomy. 5. Bilateral pleural effusions, right more than left. Assessment & Plan - Plan Summary Plan Summary: Assessment: Chronic alcoholic pancreatitis as per numerous pancreatic calcifications identified on CAT scan done today History of multiple flareups of acute on chronic pancreatitis during the past years Recent hospitalization at [facility] for about 3 weeks during which she underwent an EGD significant only for gastric polyp; also, pancreatic pseudocysts were identified on CAT scan Today, the patient presented to this emergency room with symptoms of abdominal pain and a history of syncopal episode Review of blood work reveals normal CBC, liver profile normal, slightly elevated lipase (1300) Low albumin 2.1 as per malnutrition versus most likely malabsorption secondary to pancreatic insufficiency Repeated CT scan abdomen pelvis is significant for stigmata of acute on chronic alcoholic pancreatitis with pseudocyst and peripancreatic fluid; Her history, symptoms, and test findings reflect this condition. Old Cholecystectomy, left nephrectomy No evidence of acute abdomen as there is no free air, no bowel pathology, and no other signs of intra-abdominal catastrophe Plan: No procedure planned on this patient with acute on chronic pancreatitis My recommendation is to medically manage her condition with IV hydration, pain control, and antiemetic therapy NGT tube placement is not recommended unless she develops uncontrollable nausea / vomiting I do not recommend any antibiotics as there is no evidence of an intra-abdominal infection. However, should the patient develop other infections appropriate antibiotics are recommended In 1 to 2 days, the patient can be sent to radiology to undergo a Dobbhoff tube placement with its tip placed distally to the duodenum; she can be fed enterally in the fashion both in the hospital and at home. Do not attempt any percutaneous feeding tube placement as this can be frawn with severe intra- abdominal complications I will follow the patient for 1 more day following this admission.
--- NOTE | 2020-04-07 20:42 | EKG REPORT ---
SEVERITY:- BORDERLINE ECG - SINUS RHYTHM LEFT AXIS DEVIATION CONSIDER ANTERIOR INFARCT BORDERLINE PROLONGED QT INTERVAL : Confirmed by: Pascual Rosenthal MD 07-Apr-2020 20:41:20
--- NOTE | 2020-04-07 20:47 | RADIOLOGY REPORT (SQ) ---
EXAM DESCRIPTION: Left upper extremity venous duplex exam CLINICAL HISTORY: 64 years Female; LUE swelling, r/o dvt TECHNIQUE: Multiple grayscale sonographic images of the upper extremity was obtained utilizing a high-frequency linear array transducer supplemented with color Doppler, compression and augmentation techniques. COMPARISON: None. FINDINGS: Left upper extremity veins: Exam was difficult secondary to diffuse arm edema. The internal jugular vein, subclavian vein, axillary and brachial veins are normal with normal color and spectral waveforms. Basilic and cephalic veins were not clearly seen. Radial and ulnar veins demonstrate normal compression. IMPRESSION: No evidence of left upper extremity DVT. The cephalic and basilic veins were not seen. These are considered superficial veins.
--- NOTE | 2020-04-07 21:25 | RADIOLOGY REPORT (SQ) ---
EXAM DESCRIPTION: MR ABDOMEN WITHOUT IV CONTRAST COMPLETED DATE/TME: 04/07/2020 00:00 CLINICAL HISTORY: MRCP for pancreatitis COMPARISON: 04/07/2020 TECHNIQUE: Multiplanar multisequence imaging was acquired through the abdomen without contrast. Additional heavily T2-weighted imaging was acquired for the purposes of MRCP with MIP and volume rendered imaging. FINDINGS: Moderate left and large right effusion. There is inflammation and fluid in the abdomen. There is subcutaneous emphysema also present. Stomach is incompletely distended. The pancreas is enlarged with edema and surrounding stranding. Findings suggest pancreatitis. Calculus seen in the pancreatic duct in the tail measuring 1.1 cm and additional stone in the more proximal duct measuring 0.6 cm. When correlated with CT examination findings suggest acute superimposed on chronic pancreatitis. There are several thick-walled fluid collections adjacent to the pancreas in the wall of the stomach most consistent with pseudocyst. The largest measures 3.7 x 6.3 cm with an adjacent smaller collection along the head of the pancreas measuring 3 x 2.3 cm and partially septated collection along the lesser curvature of the stomach measuring 3.6 x 2.7 cm. Fluid collection also present along the greater curvature of the stomach. Suspect additional pseudocyst formation may be present along the left colon which is incompletely imaged measuring 4.6 x 3.7 cm. Absent left kidney. Right kidney is unremarkable. Spleen appears within normal limits. On the MRCP imaging there is intra and extra hepatic biliary ductal dilatation without obstructing calculus seen in the common bile duct. Additional stones seen in the pancreatic duct at the pancreatic head. There is marked dilatation of the accessory pancreatic ducts and their branches. IMPRESSION: Findings consistent with acute superimposed on chronic pancreatitis with pancreatic ductal calculi and significant pancreatic ductal dilatation. Recommend continued follow-up as intrapancreatic ductal neoplasm is not excluded Mild biliary ductal dilatation without obstructing calculus Large cysts most compatible with pseudocyst along the pancreas, the stomach and likely also along the descending colon Inflammatory change and fluid in the upper abdomen with bilateral effusions and subcutaneous edema.
[2020-04-08] MEDS: FENTANYL 12 MCG/HR PATCH.TD72 TD SCH (03:06)
[2020-04-08] MEDS: HEPARIN SOD (PORCINE) 5,000 UNIT/ML 1 ML VIAL SUBCUT SCH ×3 (05:00→22:11)
[2020-04-08] MEDS: NORMAL SALINE 1000 ML 1,000 ML IV PRN ×3 (05:56→18:56)
[2020-04-08 08:18] LABS: ALBUMIN 1.9 g/dL (3.5-5.0); ALKALINE PHOSPHATASE 63 U/L (38-126); ANION GAP 8 (5-19); ASPARTATE AMINO TRANSFERASE 19 U/L (14-36); BILIRUBIN,DIRECT 0.4 mg/dL (0.0-0.4); BILIRUBIN,TOTAL 0.4 mg/dL (0.2-1.3); BLOOD UREA NITROGEN 15 mg/dL (7-20); CALCIUM 7.5 mg/dL (8.4-10.2); CARBON DIOXIDE 26 mmol/L (22-30); CHLORIDE 105 mmol/L (98-107); GLUCOSE 90 mg/dL (75-110); PHOSPHORUS 3.7 mg/dL (2.5-4.5); POTASSIUM 3.1 mmol/L (3.6-5.0); TOTAL PROTEIN 4.2 g/dL (6.3-8.2)
[2020-04-08 08:48] LABS: HEMATOCRIT 21.7 % (36.0-47.0); MEAN CORPUSCULAR HEMOGLOBIN 28.3 pg (27.0-33.4); MEAN CORPUSCULAR HGB CONC 32.9 g/dL (32.0-36.0); MEAN CORPUSCULAR VOLUME 86 fl (80-97); PLATELET COUNT 101 10^3/uL (150-450); RED BLOOD COUNT 2.52 10^6/uL (3.72-5.28); RED CELL DISTRIBUTION WIDTH 18.3 % (11.5-14.0); WHITE BLOOD COUNT 3.6 10^3/uL (4.0-10.5)
[2020-04-08 08:49] LABS: HEMOGLOBIN 7.1 g/dL (12.0-15.5)
[2020-04-08] MEDS: ONDANSETRON HCL INJ/PF 4 MG/2 ML SDV IV PRN (08:57)
--- NOTE | 2020-04-08 09:21 | PDOC PROGRESS REPORT ---
Subjective Progress Note for:: 04/08/20 Subjective:: patient reports less abdominal pain Reason For Visit: ACUTE ON CHRONIC PANCREATITIS WITH PSEUDOCYST Physical Exam Vital Signs: Temp Pulse Resp BP Pulse Ox 97.2 F 88 20 154/87 H 98 04/08/20 08:18 04/08/20 08:18 04/08/20 08:18 04/08/20 08:18 04/08/20 08:18 Intake & Output 04/07/20 04/08/20 04/09/20 06:59 06:59 06:59 Intake Total 2000 Output Total 0 Balance 1999 Weight 66.6 kg General appearance: PRESENT: no acute distress, thin Respiratory exam: PRESENT: clear to auscultation marianna Cardiovascular exam: PRESENT: RRR GI/Abdominal exam: PRESENT: tenderness - diffuse, no peritoneal signs, other Results Laboratory Results: 04/08/20 08:20 04/08/20 06:05 04/07/20 04/07/20 04/07/20 16:06 16:06 16:06 WBC 4.0 RBC 2.81 L Hgb 7.9 L Hct 24.0 L MCV 85 MCH 28.1 MCHC 33.0 RDW 18.1 H Plt Count 115 L Seg Neutrophils % Not Reportable Sodium 132.6 L Potassium 3.2 L Chloride 102 Carbon Dioxide 24 Anion Gap 7 BUN 16 Creatinine 1.26 H Est GFR ( Amer) 52 L Glucose 115 H Lactic Acid 0.8 Calcium 8.0 L Phosphorus Magnesium 1.7 Total Bilirubin 0.7 AST 24 Alkaline Phosphatase 77 C-Reactive Protein 62.0 H Total Protein 4.5 L Albumin 2.1 L Triglycerides Lipase 1382.0 H 04/07/20 04/08/20 04/08/20 16:06 06:05 08:20 WBC 3.6 L RBC 2.52 L Hgb 7.1 L Hct 21.7 L MCV 86 MCH 28.3 MCHC 32.9 RDW 18.3 H Plt Count 101 L Seg Neutrophils % Sodium 138.9 Potassium 3.1 L Chloride 105 Carbon Dioxide 26 Anion Gap 8 BUN 15 Creatinine 1.20 Est GFR ( Amer) 55 L Glucose 90 Lactic Acid Calcium 7.5 L Phosphorus 3.7 Magnesium 1.6 Total Bilirubin 0.4 AST 19 Alkaline Phosphatase 63 C-Reactive Protein Total Protein 4.2 L Albumin 1.9 L Triglycerides 95 Lipase 548.9 H 04/07/20 16:06 Troponin I < 0.012 NT-Pro-B Natriuret Pep 3300 H Impressions: Abdomen MRI 04/07/20 00:00 IMPRESSION: Findings consistent with acute superimposed on chronic pancreatitis with pancreatic ductal calculi and significant pancreatic ductal dilatation. Recommend continued follow-up as intrapancreatic ductal neoplasm is not excluded Mild biliary ductal dilatation without obstructing calculus Large cysts most compatible with pseudocyst along the pancreas, the stomach and likely also along the descending colon Inflammatory change and fluid in the upper abdomen with bilateral effusions and subcutaneous edema. Chest X-Ray 04/07/20 15:59 IMPRESSION: Postsurgical changes with volume loss at the right lung. Small right pleural effusion with airspace opacity at the right lung base, may be seco ndary to atelectasis or pneumonia. Head CT 04/07/20 15:59 IMPRESSION: No acute intracranial hemorrhage or acute territorial infarct. EVIDENCE OF ACUTE STROKE: NO. Abdomen/Pelvis CT 04/07/20 16:27 IMPRESSION: 1. Acute on chronic pancreatitis. Interval development of peripancreatic fluid collections, may represent pseudocysts. Followup CT or MRI in 3 months recommended to re-evaluate and exclude cystic neoplasm. 2. Small ascites. Anasarca. 3. Status post cholecystectomy. Mild dilation of the common bile duct. 4. Status post left nephrectomy. 5. Bilateral pleural effusions, right more than left. Venous Doppler Study 04/07/20 18:37 IMPRESSION: No evidence of left upper extremity DVT. The cephalic and basilic veins were not seen. These are considered superficial veins. Assessment & Plan - Diagnosis (1) Chronic alcoholic pancreatitis Is this a current diagnosis for this admission?: Yes (2) Acute on chronic pancreatitis Is this a current diagnosis for this admission?: Yes (3) Anemia of chronic disease Is this a current diagnosis for this admission?: Yes - Time Anticipated Discharge Disposition: Home, Self Care Anticipated Discharge Timeframe: as per PCP - Plan Summary Plan Summary: A/ Acute on chronic pancreatitis, most likely alcoholic as per pancreatic calcifications on CT improved symptoms Decreased lipase from 1,300 on admission to 548 today LFT normal Albumin 1.9 Low H/H (7.1/21), patient aware, most likely due to her hx of kidney cancer, lung cancer, dietary, and pancreatic malabsorption P/ No need of surgical intervention Questionable need of colonoscopy due to her anemia (no need of EGD as it was done 3 weeks ago at outside hospital). Continue to treat patient with current regimen as she is improving Reintroduce diet in 1-2 days as her lipase normalizes and she is less asymptomatic She should be discharged on a low fat diet Add pancreatic enzymes supplememts to her diet (Pnacrezyme) Avoid narcotics both in hospital and at discharge because they are not recommended as long-term pain control (Tylenol supplemented by Tramadol should suffice). I will sign off. Please,call me w/questions.
[2020-04-08] MEDS: HYDROMORPHONE HCL INJ/PF 2 MG/ML AMPULE IV PRN ×2 (09:30→11:37)
[2020-04-08] MEDS: POTASSI CL 20 MEQ/50 ML RIDER 20 MEQ/50 ML RTUPB IV SCH ×3 (11:36→15:24)
[2020-04-08 12:30] LABS: HEMATOCRIT 22.8 % (36.0-47.0); MEAN CORPUSCULAR HEMOGLOBIN 28.3 pg (27.0-33.4); MEAN CORPUSCULAR HGB CONC 32.5 g/dL (32.0-36.0); MEAN CORPUSCULAR VOLUME 87 fl (80-97); PLATELET COUNT 101 10^3/uL (150-450); RED BLOOD COUNT 2.63 10^6/uL (3.72-5.28); RED CELL DISTRIBUTION WIDTH 17.9 % (11.5-14.0); WHITE BLOOD COUNT 3.8 10^3/uL (4.0-10.5)
[2020-04-08 12:51] LABS: ABSOLUTE LYMPHOCYTES# (MANUAL) 0.4 10^3/uL (0.5-4.7); ABSOLUTE MONOCYTES # (MANUAL) 0.1 10^3/uL (0.1-1.4); BAND NEUTROPHILS % (MANUAL) 1 % (3-5); BASOPHILS % (MANUAL) 2 % (0-2); EOSINOPHILS % (MANUAL) 0 % (0-6); LYMPHOCYTES % (MANUAL) 8 % (13-45); METAMYELOCYTES % (MANUAL) 1 % (0-1); MONOCYTES % (MANUAL) 3 % (3-13); MYELOCYTES % (MANUAL) 1 % (0); NUCLEATED RED BLOOD CELLS 1 /100 WBC (0); SEGMENTED NEUTROPHILS % (MAN) 81 % (42-78); TOTAL CELLS COUNTED 100
[2020-04-08 12:54] LABS: ANISOCYTOSIS 1+; HYPOCHROMASIA SLIGHT; POIKILOCYTOSIS 1+; POLYCHROMASIA SLIGHT; SMUDGE CELLS PRESENT
[2020-04-08 12:55] LABS: OVALOCYTES 1+; PLATELET COMMENT DECREASED; SCHISTOCYTES SLIGHT; TEAR DROP CELLS SLIGHT
[2020-04-08 12:56] LABS: HEMOGLOBIN 7.4 g/dL (12.0-15.5)
--- NOTE | 2020-04-08 17:57 | PDOC PROGRESS REPORT ---
Subjective Subjective:: Patient admitted for acute on chronic pancreatitis with elevated lipase and CT abdomen/pelvis showing multiple pancreatic cysts, pancreatic duct stone with dilatation, with peripancreatic fluid and inflammation. General surgery was consulted and they stated patient does not need any surgery at this time. They have signed off as well. Patient has been given IV fluids and pain management which seems to have improved her. Her periorbital edema has not resolved and I am still unsure why she has this. She and her family told me yesterday that she had her peripancreatic fluid drained on endoscopic ultrasound at [facility] a few weeks ago, therefore it is very concerning that this is already recurred since that drainage. I think she would be best served following up with a GI physician and following with them very closely for an extended period of time. I will try to reach out to a GI physician at an outside facility to get their opinion on the case if we are unable to get a GI physician to consult here given they have very few days availability each month. I think the patient overall has a rather poor long-term prognosis and I would not be surprised if she did not survive the next year. Palliative care consult was placed by nursing and I agree with obtaining this assessment. Patient has no new complaints other than continued abdominal pain which seems to be a bit less today. Reason For Visit: ACUTE ON CHRONIC PANCREATITIS WITH PSEUDOCYST Physical Exam Vital Signs: Temp Pulse Resp BP Pulse Ox 97.4 F 68 16 158/94 H 100 04/08/20 16:00 04/08/20 16:00 04/08/20 16:00 04/08/20 16:00 04/08/20 16:00 Intake & Output 04/07/20 04/08/20 04/09/20 06:59 06:59 06:59 Intake Total 1999 1095 Output Total 0 Balance 1999 1095 Weight 66.6 kg Exam: General appearance: PRESENT: no acute distress, well-developed, well-nourished, states her abdominal pain is somewhat improved but still quite severe at times Head exam: PRESENT: atraumatic, normocephalic Eye exam: PRESENT: conjunctiva pink Mouth exam: PRESENT: moist Respiratory exam: PRESENT: clear to auscultation marianna. ABSENT: rales, rhonchi, wheezes Cardiovascular exam: PRESENT: RRR. ABSENT: diastolic murmur, rubs, systolic murmur GI/Abdominal exam: PRESENT: normal bowel sounds, soft, moderate to severe ten derness with palpation. ABSENT: distended, guarding, mass, organolmegaly, rebound Extremities exam: PRESENT: pedal edema, mild edema, other - Right surgical stump rather tender, healing, minimal drain output Neurological exam: PRESENT: alert, awake, oriented to person, oriented to place, oriented to time, oriented to situation Psychiatric exam: PRESENT: appropriate affect, normal mood Skin exam: PRESENT: dry, warm Results Laboratory Results: 04/08/20 12:15 04/08/20 06:05 04/07/20 04/08/20 04/08/20 16:06 06:05 08:20 WBC 3.6 L RBC 2.52 L Hgb 7.1 L Hct 21.7 L MCV 86 MCH 28.3 MCHC 32.9 RDW 18.3 H Plt Count 101 L Seg Neutrophils % Sodium 138.9 Potassium 3.1 L Chloride 105 Carbon Dioxide 26 Anion Gap 8 BUN 15 Creatinine 1.20 Est GFR ( Amer) 55 L Glucose 90 Calcium 7.5 L Phosphorus 3.7 Magnesium 1.6 Total Bilirubin 0.4 AST 19 Alkaline Phosphatase 63 Total Protein 4.2 L Albumin 1.9 L Triglycerides 95 Lipase 548.9 H 04/08/20 12:15 WBC 3.8 L RBC 2.63 L Hgb 7.4 L Hct 22.8 L MCV 87 MCH 28.3 MCHC 32.5 RDW 17.9 H Plt Count 101 L Seg Neutrophils % Not Reportable Sodium Potassium Chloride Carbon Dioxide Anion Gap BUN Creatinine Est GFR ( Amer) Glucose Calcium Phosphorus Magnesium Total Bilirubin AST Alkaline Phosphatase Total Protein Albumin Triglycerides Lipase 04/07/20 16:06 Troponin I < 0.012 NT-Pro-B Natriuret Pep 3300 H Impressions: Abdomen MRI 04/07/20 00:00 IMPRESSION: Findings consistent with acute superimposed on chronic pancreatitis with pancreatic ductal calculi and significant pancreatic ductal dilatation. Recommend continued follow-up as intrapancreatic ductal neoplasm is not excluded Mild biliary ductal dilatation without obstructing calculus Large cysts most compatible with pseudocyst along the pancreas, the stomach and likely also along the descending colon Inflammatory change and fluid in the upper abdomen with bilateral effusions and subcutaneous edema. Chest X-Ray 04/07/20 15:59 IMPRESSION: Postsurgical changes with volume loss at the right lung. Small right pleural effusion with airspace opacity at the right lung base, may be secondary to atelectasis or pneumonia. Head CT 04/07/20 15:59 IMPRESSION: No acute intracranial hemorrhage or acute territorial infarct. EVIDENCE OF ACUTE STROKE: NO. Abdomen/Pelvis CT 04/07/20 16:27 IMPRESSION: 1. Acute on chronic pancreatitis. Interval development of peripancreatic fluid collections, may represent pseudocysts. Followup CT or MRI in 3 months recommended to re-evaluate and exclude cystic neoplasm. 2. Small ascites. Anasarca. 3. Status post cholecystectomy. Mild dilation of the common bile duct. 4. Status post left nephrectomy. 5. Bilateral pleural effusions, right more than left. Venous Doppler Study 04/07/20 18:37 IMPRESSION: No evidence of left upper extremity DVT. The cephalic and basilic veins were not seen. These are considered superficial veins. Assessment and Plan - Diagnosis (1) Acute on chronic pancreatitis Is this a current diagnosis for this admission?: Yes Plan: Lipase 1300 on admission, severe abdominal pain even to light touch; trending down Unclear etiology of pancreatitis, per patient and family pancreatitis started 03/2019 she has had recurrences since then Denies any heavy alcohol use now or in the past, does not appear to be on any specific drugs that could cause pancreatitis at home, triglycerides normal now and in the past Possible AIP, checked IgG4, pending IV fluids N.p.o. with ice chips, gradually advance diet as tolerated Antiemetics GI consulted: They have very limited availability in this facility General surgery consulted for severe abdominal pain, very complicated abdomen surgical history Continued home pain medication fentanyl patch, added IV Dilaudid as needed (2) Recurrent right pleural effusion Is this a current diagnosis for this admission?: Yes Plan: Unclear etiology, possibly due to previous lung cancer and also the treatment for this including lobectomy/radiation Stable for now, not requiring supplemental oxygen (3) Chronic pain syndrome Is this a current diagnosis for this admission?: Yes (4) CHF (congestive heart failure) Qualifiers: Heart failure type: unspecified Heart failure chronicity: chronic Qualified Code(s): I50.9 - Heart failure, unspecified Is this a current diagnosis for this admission?: Yes (5) Chronic renal insufficiency, stage III (moderate) Is this a current diagnosis for this admission?: Yes (6) Extremity edema Is this a current diagnosis for this admission?: Yes (7) Hypertension Qualifiers: Hypertension type: essential hypertension Qualified Code(s): I10 - Essential (primary) hypertension Is this a current diagnosis for this admission?: Yes (8) Pancytopenia Is this a current diagnosis for this admission?: Yes Plan: Check flow cytometry of peripheral blood, she is probably high risk to develop hematologic malignancies given her extensive history of chemotherapy and radiation and multiple cancers Pending flow cytometry - Time Time Spent with patient: 25-34 minutes Medications reviewed and adjusted accordingly: Yes Anticipated Discharge Disposition: Home with Home Health Anticipated Discharge Timeframe: within 48 hours - Inpatient Certification Based on my medical assessment, after consideration of the patient's comorbidities, presenting symptoms, or acuity I expect that the services needed warrant INPATIENT care.: Yes I certify that my determination is in accordance with my understanding of Medicare's requirements for reasonable and necessary INPATIENT services [42 CFR 412.3e].: Yes Medical Necessity: Significant Comorbidiites Make Outpatient Treatment Too Risk y, Need Close Monitoring Due to Risk of Patient Decompensation, Need for Pain Control, Risk of Complication if Not Cared For in Hospital, Risk of Diagnosis Which Will Require Inpatient Eval/Care/Monitoring
[2020-04-08] MEDS ORDERED: DRONABINOL 2.5 MG CAPSULE ONE (18:45)
[2020-04-08] MEDS: DRONABINOL 2.5 MG CAPSULE PO SCH (18:52)
[2020-04-09] MEDS: NORMAL SALINE 1000 ML 1,000 ML IV PRN ×2 (04:56→16:45)
[2020-04-09] MEDS: HEPARIN SOD (PORCINE) 5,000 UNIT/ML 1 ML VIAL SUBCUT SCH ×3 (06:33→23:46)
[2020-04-09 08:19] LABS: HEMATOCRIT 21.7 % (36.0-47.0); MEAN CORPUSCULAR HEMOGLOBIN 28.5 pg (27.0-33.4); MEAN CORPUSCULAR HGB CONC 32.9 g/dL (32.0-36.0); MEAN CORPUSCULAR VOLUME 87 fl (80-97); PLATELET COUNT 104 10^3/uL (150-450); RED CELL DISTRIBUTION WIDTH 18.1 % (11.5-14.0); WHITE BLOOD COUNT 4.1 10^3/uL (4.0-10.5)
[2020-04-09 08:21] LABS: HEMOGLOBIN 7.1 g/dL (12.0-15.5)
[2020-04-09 09:03] LABS: ALBUMIN 1.8 g/dL (3.5-5.0); ALKALINE PHOSPHATASE 66 U/L (38-126); ANION GAP 9 (5-19); ASPARTATE AMINO TRANSFERASE 16 U/L (14-36); BILIRUBIN,DIRECT 0.4 mg/dL (0.0-0.4); BILIRUBIN,TOTAL 0.5 mg/dL (0.2-1.3); BLOOD UREA NITROGEN 14 mg/dL (7-20); CALCIUM 7.5 mg/dL (8.4-10.2); CARBON DIOXIDE 22 mmol/L (22-30); CHLORIDE 110 mmol/L (98-107); GLUCOSE 74 mg/dL (75-110); POTASSIUM 3.9 mmol/L (3.6-5.0); TOTAL PROTEIN 4.1 g/dL (6.3-8.2)
[2020-04-09] MEDS: HYDROMORPHONE HCL INJ/PF 2 MG/ML AMPULE IV PRN (09:18)
[2020-04-09] MEDS: DULOXETINE HCL 30 MG CAPSULE.DR PO SCH (10:39)
[2020-04-09] MEDS: LIPASE/PROTEASE/AMYLASE 1 CAP CAPSULE.DR PO SCH ×3 (10:39→17:39)
[2020-04-09] MEDS: DRONABINOL 2.5 MG CAPSULE PO SCH ×2 (10:55→17:39)
--- NOTE | 2020-04-09 15:40 | PDOC PROGRESS REPORT ---
Subjective Subjective:: Patient admitted for acute on chronic pancreatitis with elevated lipase and CT abdomen/pelvis showing multiple pancreatic cysts, pancreatic duct stone with dilatation, with peripancreatic fluid and inflammation. General surgery was consulted and they stated patient does not need any surgery at this time. They have signed off as well. Patient has been given IV fluids and pain management which seems to have improved her. Her periorbital edema has not resolved and I am still unsure why she has this. She and her family told me yesterday that she had her peripancreatic fluid drained on endoscopic ultrasound at [facility] a few weeks ago, therefore it is very concerning that this is already recurred since that drainage. I think she would be best served following up with a GI physician and following with them very closely for an extended period of time. I will try to reach out to a GI physician at an outside facility to get their opinion on the case if we are unable to get a GI physician to consult here given they have very few days availability each month. I think the patient overall has a rather poor long-term prognosis and I would not be surprised if she did not survive the next year. Palliative care consult was placed by nursing and I agree with obtaining this assessment. Patient has no new complaints other than continued abdominal pain which seems to be a bit less today. 04/09/2020 I called [facility] and had a rather extensive conversation with the paver radio personality there. He was exceedingly helpful and gave me a lot of useful information about her previous hospitalization there. He states that there was no procedure to drain her peripancreatic fluid and at that time the imaging they had done showed a rather small fluid collection of approximately 1 to 2 cm that was not amenable to drainage. I relayed to him that the MRCP I had done here showed a great deal of increase in the size of this fluid collection and also now has multiple other areas of fluid collection along the pancreas/stomach/colon. He states that once the cysts reached a size of approximately 5 or 6 cm they are more likely to benefit from drainage. He also read me the previous GI physician's note who stated patient has an extremely complicated biliary tree and pancreas disease process which would very likely need extensive ERCP intervention which would include 2 or 3 different instances of ERCP to clear the stone in the pancreatic duct and also correct the multiple strictures in her biliary system. GI physician requested that we call them tomorrow at the phone number [phone] and press #6 to get to the triage nurse. [facility] is at capacity but they may be able to make an exception to get this patient seen there for some intervention. Ultimately, they also stated the patient will likely need to go to a large academic facility such as [facility] or [facility] to have the definitive treatment that she requires as even the expertise at [facility] is incapable of handling this very complicated case. We are also both in agreement that despite the patient's relatively young age she may be most appropriate for hospice care at this time rather than going through such extensive procedures when she is already suffered from multiple cancers, an KS, and a stroke. Overall, patient's pain seems to be better today but has not completely resolved. Her periorbital edema and swelling in her left upper extremity have resolved now and will not need to do any further imaging on her head or upper extremity at this time. Lipase down to 400 and creatinine appears to be at baseline. Patient has no new complaints. Reason For Visit: ACUTE ON CHRONIC PANCREATITIS WITH PSEUDOCYST Physical Exam Vital Signs: Temp Pulse Resp BP Pulse Ox 97.9 F 107 H 20 164/100 H 100 04/09/20 11:11 04/09/20 11:11 04/09/20 11:11 04/09/20 11:11 04/09/20 11:11 Intake & Output 04/08/20 04/09/20 04/10/20 06:59 06:59 06:59 Intake Total 1999 3158 150 Output Total 0 360 Balance 1999 2798 150 Weight 66.6 kg 69.5 kg Exam: General appearance: PRESENT: cooperative, no acute distress, states she is feeling somewhat better today Head exam: PRESENT: atraumatic, normocephalic Eye exam: PRESENT: conjunctiva pink, periorbital swelling. ABSENT: scleral icterus Mouth exam: PRESENT: moist Respiratory exam: PRESENT: clear to auscultation marianna. ABSENT: rales, rhonchi, wheezes Cardiovascular exam: PRESENT: RRR. ABSENT: diastolic murmur, rubs, systolic murmur GI/Abdominal exam: PRESENT: No guarding, normal bowel sounds, soft, tenderness - moderate with palpation. ABSENT: distended, mass, organolmegaly, rebound Rectal exam: PRESENT: deferred Extremities exam: PRESENT: Trace edema - Left upper extremity. ABSENT: pedal edema improved Neurological exam: PRESENT: alert, awake, oriented to person, oriented to place, oriented to time, oriented to situation Psychiatric exam: PRESENT: appropriate affect, normal mood Skin exam: PRESENT: dry, intact, warm Results Laboratory Results: 04/09/20 06:40 04/09/20 06:40 04/09/20 04/09/20 04/09/20 06:40 06:40 06:40 WBC 4.1 RBC 2.50 L Hgb 7.1 L Hct 21.7 L MCV 87 MCH 28.5 MCHC 32.9 RDW 18.1 H Plt Count 104 L Sodium Cancelled 140.6 Potassium Cancelled 3.9 Chloride Cancelled 110 H Carbon Dioxide Cancelled 22 Anion Gap Cancelled 9 BUN Cancelled 14 Creatinine Cancelled 1.21 Est GFR ( Amer) Cancelled 55 L Est GFR (Non-Af Amer) Cancelled Glucose Cancelled 74 L Calcium Cancelled 7.5 L Total Bilirubin Cancelled 0.5 AST Cancelled 16 Alkaline Phosphatase Cancelled 66 Total Protein Cancelled 4.1 L Albumin Cancelled 1.8 L Lipase 404.3 H Cancelled 04/07/20 16:06 Troponin I < 0.012 NT-Pro-B Natriuret Pep 3300 H Impressions: Abdomen MRI 04/07/20 00:00 IMPRESSION: Findings consistent with acute superimposed on chronic pancreatitis with pancreatic ductal calculi and significant pancreatic ductal dilatation. Recommend continued follow-up as intrapancreatic ductal neoplasm is not excluded Mild biliary ductal dilatation without obstructing calculus Large cysts most compatible with pseudocyst along the pancreas, the stomach and likely also along the descending colon Inflammatory change and fluid in the upper abdomen with bilateral effusions and subcutaneous edema. Chest X-Ray 04/07/20 15:59 IMPRESSION: Postsurgical changes with volume loss at the right lung. Small right pleural effusion with airspace opacity at the right lung base, may be secondary to atelectasis or pneumonia. Head CT 04/07/20 15:59 IMPRESSION: No acute intracranial hemorrhage or acute territorial infarct. EVIDENCE OF ACUTE STROKE: NO. Abdomen/Pelvis CT 04/07/20 16:27 IMPRESSION: 1. Acute on chronic pancreatitis. Interval development of peripancreatic fluid collections, may represent pseudocysts. Followup CT or MRI in 3 months recommended to re-evaluate and exclude cystic neoplasm. 2. Small ascites. Anasarca. 3. Status post cholecystectomy. Mild dilation of the common bile duct. 4. Status post left nephrectomy. 5. Bilateral pleural effusions, right more than left. Venous Doppler Study 04/07/20 18:37 IMPRESSION: No evidence of left upper extremity DVT. The cephalic and basilic veins were not seen. These are considered superficial veins. Assessment and Plan - Diagnosis (1) Acute on chronic pancreatitis Is this a current diagnosis for this admission?: Yes Plan: Lipase 1300 on admission, severe abdominal pain even to light touch; trending down Unclear etiology of pancreatitis, per patient and family pancreatitis started 03/2019 she has had recurrences since then Denies any heavy alcohol use now or in the past, does not appear to be on any specific drugs that could cause pancreatitis at home, triglycerides normal now and in the past Possible AIP, checked IgG4, pending IV fluids N.p.o. with ice chips, gradually advance diet as tolerated Antiemetics GI consulted: They have very limited availability in this facility General surgery consulted for severe abdominal pain, very complicated abdomen surgical history Continued home pain medication fentanyl patch, added IV Dilaudid as needed 04/09/2020 MRCP reviewed, showed pancreatic duct stone with duct dilatation, multiple enlarging peripancreatic pseudocysts much larger than previous imaging at [facility], acute on chronic pancreatitis Extensive conversation with patient's GI team at [facility]. They would like us to call them on 04/10 when the patient's GI physician Dr. Bojorquez comes back. Phone number is [phone] then press #6 to get to the triage nurse. [facility] GI stated patient's problems are likely too complicated to be definitively managed at their facility but they may consider transfer there to have the pancreatic pseudocyst drained given the have increased substantially in size from her imaging done at the patient's previous admission at [facility]. Ultimately, patient will need definitive treatment at [facility] or [facility] per GI. Advance diet gradually, so far tolerating liquids Continue IV fluids, continue pain management Lipase trending down (2) Recurrent right pleural effusion Is this a current diagnosis for this admission?: Yes (3) Chronic pain syndrome Is this a current diagnosis for this admission?: Yes (4) CHF (congestive heart failure) Qualifiers: Heart failure type: unspecified Heart failure chronicity: chronic Qualified Code(s): I50.9 - Heart failure, unspecified Is this a current diagnosis for this admission?: Yes (5) Chronic renal insufficiency, stage III (moderate) Is this a current diagnosis for this admission?: Yes Plan: History of RCC status post single nephrectomy Avoid IV contrast if possible Trend BMP Creatinine at baseline (6) Extremity edema Is this a current diagnosis for this admission?: Yes (7) Hypertension Qualifiers: Hypertension type: essential hypertension Qualified Code(s): I10 - Essential (primary) hypertension Is this a current diagnosis for this admission?: Yes (8) Pancytopenia Is this a current diagnosis for this admission?: Yes - Time Time Spent with patient: 35 or more minutes Medications reviewed and adjusted accordingly: Yes Anticipated Discharge Disposition: Tertiary Anticipated Discharge Timeframe: within 48 hours - Inpatient Certification Based on my medical assessment, after consideration of the patient's comorbidities, presenting symptoms, or acuity I expect that the services needed warrant INPATIENT care.: Yes I certify that my determination is in accordance with my understanding of Medicare's requirements for reasonable and necessary INPATIENT services [42 CFR 412.3e].: Yes Medical Necessity: Significant Comorbidiites Make Outpatient Treatment Too Risky, Need Close Monitoring Due to Risk of Patient Decompensation, Need For IV Fluids, Need for Pain Control, Risk of Complication if Not Cared For in Hospital, Risk of Diagnosis Which Will Require Inpatient Eval/Care/Monitoring
[2020-04-10] MEDS: NORMAL SALINE 1000 ML 1,000 ML IV PRN (05:26)
[2020-04-10] MEDS: HEPARIN SOD (PORCINE) 5,000 UNIT/ML 1 ML VIAL SUBCUT SCH ×3 (05:27→23:14)
[2020-04-10 06:41] LABS: HEMATOCRIT 20.2 % (36.0-47.0); MEAN CORPUSCULAR HEMOGLOBIN 28.1 pg (27.0-33.4); MEAN CORPUSCULAR HGB CONC 32.1 g/dL (32.0-36.0); MEAN CORPUSCULAR VOLUME 88 fl (80-97); PLATELET COUNT 102 10^3/uL (150-450); RED BLOOD COUNT 2.31 10^6/uL (3.72-5.28); WHITE BLOOD COUNT 4.1 10^3/uL (4.0-10.5)
[2020-04-10 06:44] LABS: ALBUMIN 1.7 g/dL (3.5-5.0); ALKALINE PHOSPHATASE 63 U/L (38-126); ANION GAP 6 (5-19); ASPARTATE AMINO TRANSFERASE 15 U/L (14-36); BILIRUBIN,DIRECT 0.4 mg/dL (0.0-0.4); BILIRUBIN,TOTAL 0.4 mg/dL (0.2-1.3); BLOOD UREA NITROGEN 13 mg/dL (7-20); CALCIUM 7.6 mg/dL (8.4-10.2); CARBON DIOXIDE 23 mmol/L (22-30); CHLORIDE 112 mmol/L (98-107); POTASSIUM 3.6 mmol/L (3.6-5.0)
[2020-04-10 06:46] LABS: HEMOGLOBIN 6.5 g/dL (12.0-15.5)
[2020-04-10 06:52] LABS: GLUCOSE 64 mg/dL (75-110)
[2020-04-10] MEDS ORDERED: NORMAL SALINE 250 ML IV PRN ×2 (08:25)
[2020-04-10] MEDS: LIPASE/PROTEASE/AMYLASE 1 CAP CAPSULE.DR PO SCH ×3 (09:16→18:40)
[2020-04-10] MEDS: DRONABINOL 2.5 MG CAPSULE PO SCH ×2 (09:16→18:40)
[2020-04-10] MEDS: DULOXETINE HCL 30 MG CAPSULE.DR PO SCH (09:16)
[2020-04-10 14:49] LABS: PATH REVIEW PATHOLOGIST REVIEWED
[2020-04-10] MEDS ORDERED: ONDANSETRON 4 MG TAB.RAPDIS PO PRN (15:30)
--- NOTE | 2020-04-10 15:59 | PDOC PROGRESS REPORT ---
Subjective Progress Note for:: 04/10/20 Subjective:: Patient admitted for acute on chronic pancreatitis with elevated lipase and CT abdomen/pelvis showing multiple pancreatic cysts, pancreatic duct stone with dilatation, with peripancreatic fluid and inflammation. General surgery was consulted and they stated patient does not need any surgery at this time. They have signed off as well. Patient has been given IV fluids and pain management which seems to have improved her. Her periorbital edema has not resolved and I am still unsure why she has this. She and her family told me yesterday that she had her peripancreatic fluid drained on endoscopic ultrasound at [facility] a few weeks ago, therefore it is very concerning that this is already recurred since that drainage. I think she would be best served following up with a GI physician and following with them very closely for an extended period of time. I will try to reach out to a GI physician at an outside facility to get their opinion on the case if we are unable to get a GI physician to consult here given they have very few days availability each month. I think the patient overall has a rather poor long-term prognosis and I would not be surprised if she did not survive the next year. Palliative care consult was placed by nursing and I agree with obtaining this assessment. Patient has no new complaints other than continued abdominal pain which seems to be a bit less today. 04/09/2020 I called [facility] and had a rather extensive conversation with the planer hand transportation design engineer there. He was exceedingly helpful and gave me a lot of useful information about her previous hospitalization there. He states that there was no procedure to drain her peripancreatic fluid and at that time the imaging they had done showed a rather small fluid collection of approximately 1 to 2 cm that was not amenable to drainage. I relayed to him that the MRCP I had done here showed a great deal of increase in the size of this fluid collection and also now has multiple other areas of fluid collection along the pancreas/stomach/colon. He states that once the cysts reached a size of approximately 5 or 6 cm they are more likely to benefit from drainage. He also read me the previous GI physician's note who stated patient has an extremely complicated biliary tree and pancreas disease process which would very likely need extensive ERCP intervention which would include 2 or 3 different instances of ERCP to clear the stone in the pancreatic duct and also correct the multiple strictures in her biliary system. GI physician requested that we call them tomorrow at the phone number [phone] and press #6 to get to the triage nurse. [facility] is at capacity but they may be able to make an exception to get this patient seen there for some intervention. Ultimately, they also stated the patient will likely need to go to a large academic facility such as [place] or [facility] to have the definitive treatment that she requires as even the expertise at [facility] is incapable of handling this very complicated case. We are also both in agreement that despite the patient's relatively young age she may be most appropriate for hospice care at this time rather than going through such extensive procedures when she is already suffered from multiple cancers, an [place], and a stroke. Overall, patient's pain seems to be better today but has not completely resolved. Her periorbital edema and swelling in her left upper extremity have resolved now and will not need to do any further imaging on her head or upper extremity at this time. Lipase down to 400 and creatinine appears to be at baseline. Patient has no new complaints. 04/10/2020-patient is comfortably in the bed communicating well, discussed plan of care with the patient and told her [facility] recommending transfer to [facility] patient is willing to go there. She is not interested in palliative care at this time. I spoke to Dr. stover hospitalist at [facility], he agreed that patient needs to come up there but unfortunately they do not have any beds available. I spoke to Dr. Bojorquez in [facility] as per him his colleague who does ERCPs there recommended that patient need to be transferred to [facility] because of complicated pancreatic and biliary structure. Plan is to call [facility] tomorrow to discuss the case with Dr. stover again . In the meantime we will continue the present management hemoglobin is 6.5 to transfuse 2 units of PRBC today. Reason For Visit: ACUTE ON CHRONIC PANCREATITIS WITH PSEUDOCYST Physical Exam Vital Signs: Temp Pulse Resp BP Pulse Ox 97.9 F 97 16 149/93 H 100 04/10/20 15:26 04/10/20 15:26 04/10/20 15:26 04/10/20 15:26 04/10/20 15:26 Intake & Output 04/09/20 04/10/20 04/11/20 06:59 06:59 06:59 Intake Total 3158 4161 760 Output Total 676 853 Balance 0312000 Weight 69.5 kg 71.2 kg General appearance: PRESENT: no acute distress, cooperative Head exam: PRESENT: atraumatic Eye exam: PRESENT: conjunctiva pale, PERRLA Neck exam: ABSENT: carotid bruit, JVD, lymphadenopathy, thyromegaly Respiratory exam: PRESENT: decreased breath sounds Cardiovascular exam: PRESENT: tachycardia GI/Abdominal exam: PRESENT: normal bowel sounds, soft. ABSENT: distended, guarding, mass, organolmegaly, rebound, tenderness Rectal exam: PRESENT: deferred Extremities exam: PRESENT: full ROM. ABSENT: calf tenderness, clubbing, pedal edema Neurological exam: PRESENT: alert, awake, oriented to person, oriented to place, oriented to time, oriented to situation, CN II-XII grossly intact. ABSENT: motor sensory deficit Psychiatric exam: PRESENT: appropriate affect, normal mood. ABSENT: homicidal ideation, suicidal ideation Results Laboratory Results: 04/10/20 05:30 04/10/20 05:30 04/10/20 04/10/20 04/10/20 05:30 05:30 11:10 WBC 4.1 RBC 2.31 L Hgb 6.5 L Hct 20.2 L MCV 88 MCH 28.1 MCHC 32.1 RDW 19.0 H Plt Count 102 L Sodium 140.8 Potassium 3.6 Chloride 112 H Carbon Dioxide 23 Anion Gap 6 BUN 13 Creatinine 1.18 Est GFR ( Amer) 56 L Glucose 64 L Calcium 7.6 L Total Bilirubin 0.4 AST 15 Alkaline Phosphatase 63 Total Protein 4.0 L Albumin 1.7 L Lipase 180.3 Blood Type O POSITIVE Antibody Screen NEGATIVE 04/07/20 16:06 Troponin I < 0.012 NT-Pro-B Natriuret Pep 3300 H Impressions: Abdomen MRI 04/07/20 00:00 IMPRESSION: Findings consistent with acute superimposed on chronic pancreatitis with pancreatic ductal calculi and significant pancreatic ductal dilatation. Recommend continued follow-up as intrapancreatic ductal neoplasm is not excluded Mild biliary ductal dilatation without obstructing calculus Large cysts most compatible with pseudocyst along the pancreas, the stomach and likely also along the descending colon Inflammatory change and fluid in the upper abdomen with bilateral effusions and subcutaneous edema. Chest X-Ray 04/07/20 15:59 IMPRESSION: Postsurgical changes with volume loss at the right lung. Small right pleural effusion with airspace opacity at the right lung base, may be secondary to atelectasis or pneumonia. Head CT 04/07/20 15:59 IMPRESSION: No acute intracranial hemorrhage or acute territorial infarct. EVIDENCE OF ACUTE STROKE: NO. Abdomen/Pelvis CT 04/07/20 16:27 IMPRESSION: 1. Acute on chronic pancreatitis. Interval development of peripancreatic fluid collections, may represent pseudocysts. Followup CT or MRI in 3 months recommended to re-evaluate and exclude cystic neoplasm. 2. Small ascites. Anasarca. 3. Status post cholecystectomy. Mild dilation of the common bile duct. 4. Status post left nephrectomy. 5. Bilateral pleural effusions, right more than left. Venous Doppler Study 04/07/20 18:37 IMPRESSION: No evidence of left upper extremity DVT. The cephalic and basilic veins were not seen. These are considered superficial veins. Assessment and Plan - Diagnosis (1) Acute on chronic pancreatitis Is this a current diagnosis for this admission?: Yes Plan: Lipase 1300 on admission, severe abdominal pain even to light touch; trending down Unclear etiology of pancreatitis, per patient and family pancreatitis started 03/2019 she has had recurrences since then Denies any heavy alcohol use now or in the past, does not appear to be on any specific drugs that could cause pancreatitis at home, triglycerides normal now and in the past Possible AIP, checked IgG4, pending IV fluids N.p.o. with ice chips, gradually advance diet as tolerated Antiemetics GI consulted: They have very limited availability in this facility General surgery consulted for severe abdominal pain, very complicated abdomen surgical history Continued home pain medication fentanyl patch, added IV Dilaudid as needed 04/09/2020 MRCP reviewed, showed pancreatic duct stone with duct dilatation, multiple enlarging peripancreatic pseudocysts much larger than previous imaging at [facility], acute on chronic pancreatitis Extensive conversation with patient's GI team at [facility]. They would like us to call them on 04/10 when the patient's GI physician Dr. Bojorquez comes back. Phone number is [phone] then press #6 to get to the triage nurse. [facility] GI stated patient's problems are likely too complicated to be definitively managed at their facility but they may consider transfer there to have the pancreatic pseudocyst drained given the have increased substantially in size from her imaging done at the patient's previous admission at [facility]. Ultimately, patient will need definitive treatment at [place] or [facility] per GI. Advance diet gradually, so far tolerating liquids Continue IV fluids, continue pain management Lipase trending down 04/10/2020-discussed the plan of care with Dr. Bojorquez in [facility] his recommendation is to transfer the patient to [facility] for further management. I spoke to the hospitalist Dr. stover at [facility], unfortunately no beds are available at this time. Plan is to call him back tomorrow to see if the beds are available. In the meantime continue to provide conservative management. (2) Chronic renal insufficiency, stage III (moderate) Is this a current diagnosis for this admission?: Yes Plan: History of RCC status post single nephrectomy Avoid IV contrast if possible Trend BMP Creatinine at baseline 04/10/2020-serum creatinine today is 1.18. Stable. (3) Pancytopenia Is this a current diagnosis for this admission?: Yes Plan: Check flow cytometry of peripheral blood, she is probably high risk to develop hematologic malignancies given her extensive history of chemotherapy and radiation and multiple cancers Pending flow cytometry 04/10/2020-hemoglobin is 6.5, WBC count is 4.1 platelet count is 102. Pancytop enia. Patient has history of lung cancer and kidney cancer. Flow cytometry is pending. (4) Anemia, chronic disease Is this a current diagnosis for this admission?: No Plan: 04/10/2020-patient has history of anemia of chronic disease most likely secondary to underlying malignancies. (5) Hypertension Is this a current diagnosis for this admission?: No Plan: 04/10/2020-blood pressure today's 157/88. Slightly elevated. To provide IV hydralazine PRN. - Time Anticipated Discharge Disposition: [facility] Facility Anticipated Discharge Timeframe: within 72 hours
[2020-04-10] MEDS: FENTANYL 12 MCG/HR PATCH.TD72 TD SCH (20:27)
[2020-04-11 00:57] LABS: HEMATOCRIT 30.1 % (36.0-47.0); MEAN CORPUSCULAR HEMOGLOBIN 29.6 pg (27.0-33.4); MEAN CORPUSCULAR HGB CONC 34.5 g/dL (32.0-36.0); MEAN CORPUSCULAR VOLUME 86 fl (80-97); RED CELL DISTRIBUTION WIDTH 16.8 % (11.5-14.0)
[2020-04-11 01:15] LABS: HEMOGLOBIN 10.4 g/dL (12.0-15.5); PLATELET COUNT 91 10^3/uL (150-450)
[2020-04-11 01:22] LABS: ABSOLUTE LYMPHOCYTES# (MANUAL) 0.8 10^3/uL (0.5-4.7); BAND NEUTROPHILS % (MANUAL) 2 % (3-5); BASOPHILS % (MANUAL) 1 % (0-2); EOSINOPHILS % (MANUAL) 0 % (0-6); LYMPHOCYTES % (MANUAL) 20 % (13-45); MONOCYTES % (MANUAL) 1 % (3-13); SEGMENTED NEUTROPHILS % (MAN) 75 % (42-78); TOTAL CELLS COUNTED 100
[2020-04-11 01:27] LABS: ANISOCYTOSIS 1+; OVALOCYTES SLIGHT; PLATELET COMMENT DECREASED; POIKILOCYTOSIS SLIGHT; TEAR DROP CELLS 1+
[2020-04-11 01:29] LABS: SMUDGE CELLS PRESENT
[2020-04-11] MEDS: HEPARIN SOD (PORCINE) 5,000 UNIT/ML 1 ML VIAL SUBCUT SCH ×3 (06:07→21:21)
[2020-04-11 07:05] LABS: HEMATOCRIT 30.6 % (36.0-47.0); HEMOGLOBIN 10.5 g/dL (12.0-15.5); MEAN CORPUSCULAR HEMOGLOBIN 29.5 pg (27.0-33.4); MEAN CORPUSCULAR HGB CONC 34.4 g/dL (32.0-36.0); MEAN CORPUSCULAR VOLUME 86 fl (80-97); RED BLOOD COUNT 3.57 10^6/uL (3.72-5.28); RED CELL DISTRIBUTION WIDTH 16.8 % (11.5-14.0); WHITE BLOOD COUNT 3.8 10^3/uL (4.0-10.5)
[2020-04-11 07:09] LABS: ALBUMIN 1.7 g/dL (3.5-5.0); ALKALINE PHOSPHATASE 71 U/L (38-126); ASPARTATE AMINO TRANSFERASE 15 U/L (14-36); BILIRUBIN,DIRECT 0.4 mg/dL (0.0-0.4); BILIRUBIN,TOTAL 0.5 mg/dL (0.2-1.3); BLOOD UREA NITROGEN 13 mg/dL (7-20); CALCIUM 7.8 mg/dL (8.4-10.2); CARBON DIOXIDE 24 mmol/L (22-30); CHLORIDE 113 mmol/L (98-107); GLUCOSE 81 mg/dL (75-110); POTASSIUM 3.7 mmol/L (3.6-5.0); TOTAL PROTEIN 4.2 g/dL (6.3-8.2)
[2020-04-11 07:18] LABS: ANION GAP 4 (5-19)
[2020-04-11 07:21] LABS: PLATELET COUNT 92 10^3/uL (150-450)
[2020-04-11 07:28] LABS: ABSOLUTE LYMPHOCYTES# (MANUAL) 1.1 10^3/uL (0.5-4.7); ABSOLUTE MONOCYTES # (MANUAL) 0.2 10^3/uL (0.1-1.4); BAND NEUTROPHILS % (MANUAL) 1 % (3-5); BASOPHILS % (MANUAL) 0 % (0-2); EOSINOPHILS % (MANUAL) 0 % (0-6); LYMPHOCYTES % (MANUAL) 28 % (13-45); MONOCYTES % (MANUAL) 5 % (3-13); SEGMENTED NEUTROPHILS % (MAN) 64 % (42-78); TOTAL CELLS COUNTED 100
[2020-04-11 07:32] LABS: ANISOCYTOSIS 1+; OVALOCYTES SLIGHT; PLATELET COMMENT DECREASED; TEAR DROP CELLS SLIGHT
[2020-04-11] MEDS: DRONABINOL 2.5 MG CAPSULE PO SCH ×2 (11:02→17:45)
[2020-04-11] MEDS: MAGNESIUM OXIDE 400 MG TABLET PO SCH ×2 (11:02→17:45)
[2020-04-11] MEDS: DULOXETINE HCL 30 MG CAPSULE.DR PO SCH (11:02)
[2020-04-11] MEDS: LIPASE/PROTEASE/AMYLASE 1 CAP CAPSULE.DR PO SCH ×3 (11:04→17:47)
[2020-04-11] MEDS: ONDANSETRON HCL INJ/PF 4 MG/2 ML SDV IV PRN (11:10)
[2020-04-11] MEDS ORDERED: OXYCODONE-ACETAMINOPHEN 5-325 MG TABLET PO PRN (12:42)
--- NOTE | 2020-04-11 12:52 | PDOC PROGRESS REPORT ---
Subjective Progress Note for:: 04/11/20 Subjective:: Patient admitted for acute on chronic pancreatitis with elevated lipase and CT abdomen/pelvis showing multiple pancreatic cysts, pancreatic duct stone with dilatation, with peripancreatic fluid and inflammation. General surgery was consulted and they stated patient does not need any surgery at this time. They have signed off as well. Patient has been given IV fluids and pain management which seems to have improved her. Her periorbital edema has not resolved and I am still unsure why she has this. She and her family told me yesterday that she had her peripancreatic fluid drained on endoscopic ultrasound at [facility] a few weeks ago, therefore it is very concerning that this is already recurred since that drainage. I think she would be best served following up with a GI physician and following with them very closely for an extended period of time. I will try to reach out to a GI physician at an outside facility to get their opinion on the case if we are unable to get a GI physician to consult here given they have very few days availability each month. I think the patient overall has a rather poor long-term prognosis and I would not be surprised if she did not survive the next year. Palliative care consult was placed by nursing and I agree with obtaining this assessment. Patient has no new complaints other than continued abdominal pain which seems to be a bit less today. 04/09/2020 I called [facility] and had a rather extensive conversation with the client architect contract coordinator there. He was exceedingly helpful and gave me a lot of useful information about her previous hospitalization there. He states that there was no procedure to drain her peripancreatic fluid and at that time the imaging they had done showed a rather small fluid collection of approximately 1 to 2 cm that was not amenable to drainage. I relayed to him that the MRCP I had done here showed a great deal of increase in the size of this fluid collection and also now has multiple other areas of fluid collection along the pancreas/stomach/colon. He states that once the cysts reached a size of approximately 5 or 6 cm they are more likely to benefit from drainage. He also read me the previous GI physician's note who stated patient has an extremely complicated biliary tree and pancreas disease process which would very likely need extensive ERCP intervention which would include 2 or 3 different instances of ERCP to clear the stone in the pancreatic duct and also correct the multiple strictures in her biliary system. GI physician requested that we call them tomorrow at the phone number [phone] and press #6 to get to the triage nurse. [facility] is at capacity but they may be able to make an exception to get this patient seen there for some intervention. Ultimately, they also stated the patient will likely need to go to a large academic facility such as [facility] or [facility] to have the definitive treatment that she requires as even the expertise at [facility] is incapable of handling this very complicated case. We are also both in agreement that despite the patient's relatively young age she may be most appropriate for hospice care at this time rather than going through such extensive procedures when she is already suffered from multiple cancers, an PA, and a stroke. Overall, patient's pain seems to be better today but has not completely resolved. Her periorbital edema and swelling in her left upper extremity have resolved now and will not need to do any further imaging on her head or upper extremity at this time. Lipase down to 400 and creatinine appears to be at baseline. Patient has no new complaints. 04/10/2020-patient is comfortably in the bed communicating well, discussed plan of care with the patient and told [facility] transfer to [place] patient is willing to go there. She is not interested in palliative care at this time. I spoke to Dr. stover hospitalist at [place], he agreed that patient needs to come up there but unfortunately they do not have any beds available. I spoke to Dr. Bojorquez in [facility], [place] as per him his colleague who does ERCPs there recommended that patient need to be transferred to [place] because of complicated pancreatic and biliary structure. Plan is to call [place] tomorrow to discuss the case with Dr. stover again . In the meantime we will continue the present management hemoglobin is 6.5 to transfuse 2 units of PRBC today. 04/11/2020-patient is comfortably in the bed complaining of nausea. She received 2 units of PRBC yesterday latest hemoglobin is 10.2. Denies any abdominal pains at the time of my examination. I called [facility] transfer center to request a bed unfortunately no beds are available at this time. Reason For Visit: ACUTE ON CHRONIC PANCREATITIS WITH PSEUDOCYST Physical Exam Vital Signs: Temp Pulse Resp BP Pulse Ox 97.7 F 84 17 154/90 H 100 04/11/20 10:00 04/11/20 07:50 04/11/20 07:50 04/11/20 07:50 04/11/20 07:50 Intake & Output 04/10/20 04/11/20 04/12/20 06:59 06:59 06:59 Intake Total 2856 7552 Output Total 850 900 Balance 2000 184 Weight 71.2 kg 72.2 kg General appearance: PRESENT: no acute distress, cooperative, disheveled Head exam: PRESENT: atraumatic Eye exam: PRESENT: conjunctiva pink, PERRLA Ear exam: PRESENT: normal external ear exam Mouth exam: PRESENT: neck supple Neck exam: ABSENT: carotid bruit, JVD, lymphadenopathy, thyromegaly Respiratory exam: PRESENT: decreased breath sounds Cardiovascular exam: PRESENT: RRR. ABSENT: diastolic murmur, rubs, systolic murmur GI/Abdominal exam: PRESENT: normal bowel sounds, soft. ABSENT: distended, guarding, mass, organolmegaly, rebound, tenderness Rectal exam: PRESENT: deferred Gentrourinary exam: PRESENT: indwelling catheter Extremities exam: PRESENT: full ROM, pedal edema, +1 edema. ABSENT: calf tenderness, clubbing Neurological exam: PRESENT: alert, awake, oriented to person, oriented to place, oriented to time, oriented to situation, CN II-XII grossly intact. ABSENT: motor sensory deficit Results Laboratory Results: 04/11/20 06:03 04/11/20 06:03 04/10/20 04/11/20 04/11/20 11:10 00:39 06:03 WBC 4.0 RBC 3.50 L Hgb 10.4 L D Hct 30.1 L MCV 86 MCH 29.6 MCHC 34.5 RDW 16.8 H Plt Count 91 L Seg Neutrophils % Not Reportable Sodium 140.9 Potassium 3.7 Chloride 113 H Carbon Dioxide 24 Anion Gap 4 L BUN 13 Creatinine 1.24 Est GFR ( Amer) 53 L Glucose 81 Calcium 7.8 L Magnesium 1.5 L Total Bilirubin 0.5 AST 15 Alkaline Phosphatase 71 Total Protein 4.2 L Albumin 1.7 L Blood Type O POSITIVE Antibody Screen NEGATIVE 04/11/20 06:03 WBC 3.8 L RBC 3.57 L Hgb 10.5 L Hct 30.6 L MCV 86 MCH 29.5 MCHC 34.4 RDW 16.8 H Plt Count 92 L Seg Neutrophils % Not Reportable Sodium Potassium Chloride Carbon Dioxide Anion Gap BUN Creatinine Est GFR ( Amer) Glucose Calcium Magnesium Total Bilirubin AST Alkaline Phosphatase Total Protein Albumin Blood Type Antibody Screen 04/07/20 16:06 Troponin I < 0.012 NT-Pro-B Natriuret Pep 3300 H Impressions: Abdomen MRI 04/07/20 00:00 IMPRESSION: Findings consistent with acute superimposed on chronic pancreatitis with pancreatic ductal calculi and significant pancreatic ductal dilatation. Recommend continued follow-up as intrapancreatic ductal neoplasm is not excluded Mild biliary ductal dilatation without obstructing calculus Large cysts most compatible with pseudocyst along the pancreas, the stomach and likely also along the descending colon Inflammatory change and fluid in the upper abdomen with bilateral effusions and subcutaneous edema. Chest X-Ray 04/07/20 15:59 IMPRESSION: Postsurgical changes with volume loss at the right lung. Small right pleural effusion with airspace opacity at the right lung base, may be secondary to atelectasis or pneumonia. Head CT 04/07/20 15:59 IMPRESSION: No acute intracranial hemorrhage or acute territorial infarct. EVIDENCE OF ACUTE STROKE: NO. Abdomen/Pelvis CT 04/07/20 16:27 IMPRESSION: 1. Acute on chronic pancreatitis. Interval development of peripancreatic fluid collections, may represent pseudocysts. Followup CT or MRI in 3 months recommended to re-evaluate and exclude cystic neoplasm. 2. Small ascites. Anasarca. 3. Status post cholecystectomy. Mild dilation of the common bile duct. 4. Status post left nephrectomy. 5. Bilateral pleural effusions, right more than left. Venous Doppler Study 04/07/20 18:37 IMPRESSION: No evidence of left upper extremity DVT. The cephalic and basilic veins were not seen. These are considered superficial veins. Assessment and Plan - Diagnosis (1) Acute on chronic pancreatitis Is this a current diagnosis for this admission?: Yes Plan: Lipase 1300 on admission, severe abdominal pain even to light touch; trending down Unclear etiology of pancreatitis, per patient and family pancreatitis started 03/2019 she has had recurrences since then Denies any heavy alcohol use now or in the past, does not appear to be on any specific drugs that could cause pancreatitis at home, triglycerides normal now and in the past Possible AIP, checked IgG4, pending IV fluids N.p.o. with ice chips, gradually advance diet as tolerated Antiemetics GI consulted: They have very limited availability in this facility General surgery consulted for severe abdominal pain, very complicated abdomen surgical history Continued home pain medication fentanyl patch, added IV Dilaudid as needed 04/09/2020 MRCP reviewed, showed pancreatic duct stone with duct dilatation, multiple enlarging peripancreatic pseudocysts much larger than previous imaging at [facility], acute on chronic pancreatitis Extensive conversation with patient's GI team at [facility]. They would like us to call them on 04/10 when the patient's GI physician Dr. Bojorquez comes back. Phone number is [phone] then press #6 to get to the triage nurse. [facility] GI stated patient's problems are likely too complicated to be definitively managed at their facility but they may consider transfer there to have the pancreatic pseudocyst drained given the have increased substantially in size from her imaging done at the patient's previous admission at [facility]. Ultimately, patient will need definitive treatment at [facility] or [facility] per GI. Advance diet gradually, so far tolerating liquids Continue IV fluids, continue pain management Lipase trending down 04/10/2020-discussed the plan of care with [facility] his recommendation is to transfer the patient to [place] for further management. I spoke to the hospitalist Dr. stover at [facility], unfortunately no beds are available at this time. Plan is to call him back tomorrow to see if the beds are available. In the meantime continue to provide conservative management. 04/11/2020-patient denies any abdominal pain at this time. I called [facility] transfer center to request bed , unfortunately no beds are available at this time. (2) Chronic renal insufficiency, stage III (moderate) Is this a current diagnosis for this admission?: Yes Plan: History of RCC status post single nephrectomy Avoid IV contrast if possible Trend BMP Creatinine at baseline 04/10/2020-serum creatinine today is 1.18. Stable. 04/11/2020-serum creatinine today is 1.24. Stable. Patient has a Macias's c atheter. She has history of renal cell carcinoma status post single nephrectomy. (3) Pancytopenia Is this a current diagnosis for this admission?: Yes Plan: Check flow cytometry of peripheral blood, she is probably high risk to develop hematologic malignancies given her extensive history of chemotherapy and radiation and multiple cancers Pending flow cytometry 04/10/2020-hemoglobin is 6.5, WBC count is 4.1 platelet count is 102. Pancytopenia. Patient has history of lung cancer and kidney cancer. Flow cytometry is pending. 04/11/20-hemoglobin is 10.4 today with platelet count of 126 and a WBC count of 3300. Most likely secondary to history of lung cancer and kidney cancer. (4) Anemia, chronic disease Is this a current diagnosis for this admission?: No Plan: 04/10/2020-patient has history of anemia of chronic disease most likely secondary to underlying malignancies. 04/11/2020-patient received 2 units of PRBC yesterday today's hemoglobin is 10.4. Stable. Plan is to closely monitor the labs on daily basis. (5) Hypertension Is this a current diagnosis for this admission?: No Plan: 04/10/2020-blood pressure today's 157/88. Slightly elevated. To provide IV hydralazine PRN. 04/11/2020-blood pressure is 160/80. Restarted on hydralazine 25 mg p.o. every 12 hours. (6) Hypoalbuminemia Is this a current diagnosis for this admission?: Yes Plan: 04/11/2020-serum albumin is 7.7 hypoalbuminemia most likely secondary to poor oral intake. To provide albumin supplementations. - Time Anticipated Discharge Disposition: Tertiary Anticipated Discharge Timeframe: within 48 hours
[2020-04-11] MEDS: ALBUMIN HUMAN 12.5 GM/50 ML RTUINJ IV SCH ×4 (14:01→17:52)
[2020-04-11 14:35] LABS: ALBUMIN 1.8 g/dL (3.5-5.0); ALKALINE PHOSPHATASE 74 U/L (38-126); ANION GAP 5 (5-19); ASPARTATE AMINO TRANSFERASE 18 U/L (14-36); BILIRUBIN,DIRECT 0.4 mg/dL (0.0-0.4); BILIRUBIN,TOTAL 0.5 mg/dL (0.2-1.3); BLOOD UREA NITROGEN 14 mg/dL (7-20); CARBON DIOXIDE 23 mmol/L (22-30); CHLORIDE 113 mmol/L (98-107); GLUCOSE 82 mg/dL (75-110); POTASSIUM 3.7 mmol/L (3.6-5.0); TOTAL PROTEIN 4.4 g/dL (6.3-8.2)
[2020-04-11] MEDS: PANTOPRAZOLE SODIUM 40 MG TABLET.DR PO SCH (17:45)
[2020-04-11] MEDS: HYDRALAZINE HCL 25 MG TABLET PO SCH (21:20)
[2020-04-12] MEDS: PANTOPRAZOLE SODIUM 40 MG TABLET.DR PO SCH ×2 (05:09→17:17)
[2020-04-12] MEDS: ONDANSETRON HCL INJ/PF 4 MG/2 ML SDV IV PRN (05:13)
[2020-04-12] MEDS: HEPARIN SOD (PORCINE) 5,000 UNIT/ML 1 ML VIAL SUBCUT SCH ×3 (05:55→21:44)
[2020-04-12 06:16] LABS: HEMATOCRIT 34.7 % (36.0-47.0); HEMOGLOBIN 11.6 g/dL (12.0-15.5); MEAN CORPUSCULAR HEMOGLOBIN 28.7 pg (27.0-33.4); MEAN CORPUSCULAR HGB CONC 33.3 g/dL (32.0-36.0); MEAN CORPUSCULAR VOLUME 86 fl (80-97); PLATELET COUNT 114 10^3/uL (150-450); RED BLOOD COUNT 4.02 10^6/uL (3.72-5.28); RED CELL DISTRIBUTION WIDTH 17.1 % (11.5-14.0); WHITE BLOOD COUNT 5.7 10^3/uL (4.0-10.5)
[2020-04-12 06:43] LABS: ABSOLUTE LYMPHOCYTES# (MANUAL) 1.4 10^3/uL (0.5-4.7); ABSOLUTE MONOCYTES # (MANUAL) 0.5 10^3/uL (0.1-1.4); BAND NEUTROPHILS % (MANUAL) 2 % (3-5); BASOPHILS % (MANUAL) 0 % (0-2); EOSINOPHILS % (MANUAL) 0 % (0-6); LYMPHOCYTES % (MANUAL) 24 % (13-45); METAMYELOCYTES % (MANUAL) 2 % (0-1); MONOCYTES % (MANUAL) 8 % (3-13); SEGMENTED NEUTROPHILS % (MAN) 64 % (42-78); TOTAL CELLS COUNTED 100
[2020-04-12 06:44] LABS: ANISOCYTOSIS SLIGHT; HYPOCHROMASIA SLIGHT; OVALOCYTES SLIGHT; PLATELET COMMENT DECREASED; POIKILOCYTOSIS SLIGHT; SMUDGE CELLS PRESENT
[2020-04-12] MEDS: HYDROMORPHONE HCL INJ/PF 2 MG/ML AMPULE IV PRN (09:53)
[2020-04-12] MEDS: HYDRALAZINE HCL 25 MG TABLET PO SCH ×2 (09:56→21:40)
[2020-04-12] MEDS: MAGNESIUM OXIDE 400 MG TABLET PO SCH ×2 (09:56→17:24)
[2020-04-12] MEDS: LIPASE/PROTEASE/AMYLASE 1 CAP CAPSULE.DR PO SCH ×3 (09:57→17:17)
[2020-04-12] MEDS: DULOXETINE HCL 30 MG CAPSULE.DR PO SCH (09:57)
[2020-04-12] MEDS: DRONABINOL 2.5 MG CAPSULE PO SCH ×2 (09:58→17:24)
[2020-04-12 11:12] LABS: ALBUMIN 2.6 g/dL (3.5-5.0); ALKALINE PHOSPHATASE 80 U/L (38-126); ANION GAP 14 (5-19); ASPARTATE AMINO TRANSFERASE 22 U/L (14-36); BILIRUBIN,DIRECT 0.6 mg/dL (0.0-0.4); BILIRUBIN,TOTAL 0.9 mg/dL (0.2-1.3); BLOOD UREA NITROGEN 13 mg/dL (7-20); CALCIUM 8.7 mg/dL (8.4-10.2); CARBON DIOXIDE 19 mmol/L (22-30); CHLORIDE 110 mmol/L (98-107); GLUCOSE 106 mg/dL (75-110); POTASSIUM 3.5 mmol/L (3.6-5.0); TOTAL PROTEIN 5.3 g/dL (6.3-8.2)
--- NOTE | 2020-04-12 14:49 | PDOC PROGRESS REPORT ---
Subjective Progress Note for:: 04/12/20 Subjective:: Patient admitted for acute on chronic pancreatitis with elevated lipase and CT abdomen/pelvis showing multiple pancreatic cysts, pancreatic duct stone with dilatation, with peripancreatic fluid and inflammation. General surgery was consulted and they stated patient does not need any surgery at this time. They have signed off as well. Patient has been given IV fluids and pain management which seems to have improved her. Her periorbital edema has not resolved and I am still unsure why she has this. She and her family told me yesterday that she had her peripancreatic fluid drained on endoscopic ultrasound at [facility] a few weeks ago, therefore it is very concerning that this is already recurred since that drainage. I think she would be best served following up with a GI physician and following with them very closely for an extended period of time. I will try to reach out to a GI physician at an outside facility to get their opinion on the case if we are unable to get a GI physician to consult here given they have very few days availability each month. I think the patient overall has a rather poor long-term prognosis and I would not be surprised if she did not survive the next year. Palliative care consult was placed by nursing and I agree with obtaining this assessment. Patient has no new complaints other than continued abdominal pain which seems to be a bit less today. 04/09/2020 I called [facility] and had a rather extensive conversation with the sales representative church furniture operation manager there. He was exceedingly helpful and gave me a lot of useful information about her previous hospitalization there. He states that there was no procedure to drain her peripancreatic fluid and at that time the imaging they had done showed a rather small fluid collection of approximately 1 to 2 cm that was not amenable to drainage. I relayed to him that the MRCP I had done here showed a great deal of increase in the size of this fluid collection and also now has multiple other areas of fluid collection along the pancreas/stomach/colon. He states that once the cysts reached a size of approximately 5 or 6 cm they are more likely to benefit from drainage. He also read me the previous GI physician's note who stated patient has an extremely complicated biliary tree and pancreas disease process which would very likely need extensive ERCP intervention which would include 2 or 3 different instances of ERCP to clear the stone in the pancreatic duct and also correct the multiple strictures in her biliary system. GI physician requested that we call them tomorrow at the phone number [phone] and press #6 to get to the triage nurse. [facility] is at capacity but they may be able to make an exception to get this patient seen there for some intervention. Ultimately, they also stated the patient will likely need to go to a large academic facility such as [facility] or [facility] to have the definitive treatment that she requires as even the expertise at [facility] is incapable of handling this very complicated case. We are also both in agreement that despite the patient's relatively young age she may be most appropriate for hospice care at this time rather than going through such extensive procedures when she is already suffered from multiple cancers, an ND, and a stroke. Overall, patient's pain seems to be better today but has not completely resolved. Her periorbital edema and swelling in her left upper extremity have resolved now and will not need to do any further imaging on her head or upper extremity at this time. Lipase down to 400 and creatinine appears to be at baseline. Patient has no new complaints. 04/10/2020-patient is comfortably in the bed communicating well, discussed plan of care with the patient and told her [facility] recommending transfer to [place] patient is willing to go there. She is not interested in palliative care at this time. I spoke to Dr. estrella hospitalist at [place], he agreed that patient needs to come up there but unfortunately they do not have any beds available. I spoke to Dr. Bojorquez in [facility] as per him his colleague who does ERCPs there recommended that patient need to be transferred to [place] because of complicated pancreatic and biliary structure. Plan is to call [place] tomorrow to discuss the case with Dr. estrella again . In the meantime we will continue the present management hemoglobin is 6.5 to transfuse 2 units of PRBC today. 04/11/2020-patient is comfortably in the bed complaining of nausea. She received 2 units of PRBC yesterday latest hemoglobin is 10.2. Denies any abdominal pains at the time of my examination. I called [facility] transfer center to request a bed unfortunately no beds are available at this time. 04/12/2020-no acute events in the last 24 hours. Patient is still complaining of pain wearing pain medications. I called [facility] transfer center and spoke to Dr. Estrella, unfortunately no beds are available. I called the [facility] transfer center and to provide detailed information they want to speak to Dr. Reno Nunez for further information. At this time transfer is on hold to [facility]. I called [facility] spoke to director of exhibits of Dr. Bojorquez and left a message for her that [facility] was to speak to Dr. Bojorquez at this time. CT abdomen and pelvis and abdominal MRI reports are faxed to [facility]. Hopefully we may able to transfer the patient tomorrow. Reason For Visit: ACUTE ON CHRONIC PANCREATITIS WITH PSEUDOCYST Physical Exam Vital Signs: Temp Pulse Resp BP Pulse Ox 97.8 F 120 H 18 150/101 H 100 04/12/20 08:52 04/12/20 08:52 04/12/20 08:52 04/12/20 08:52 04/12/20 08:52 Intake & Output 04/11/20 04/12/20 04/13/20 06:59 06:59 06:59 Intake Total 2742 266 Output Total 900 900 50 Balance 1842 -634 -50 Weight 72.2 kg 72.2 kg General appearance: PRESENT: no acute distress, cooperative Head exam: PRESENT: atraumatic Eye exam: PRESENT: conjunctiva pale, PERRLA Ear exam: PRESENT: normal external ear exam Teeth exam: PRESENT: poor dentation Neck exam: ABSENT: carotid bruit, JVD, lymphadenopathy, thyromegaly Respiratory exam: PRESENT: decreased breath sounds Cardiovascular exam: PRESENT: tachycardia Pulses: PRESENT: normal dorsalis pedis pul GI/Abdominal exam: PRESENT: normal bowel sounds, tenderness Rectal exam: PRESENT: deferred Extremities exam: PRESENT: full ROM. ABSENT: calf tenderness, clubbing, pedal edema Neurological exam: PRESENT: alert, awake, oriented to person, oriented to place, oriented to time, oriented to situation, CN II-XII grossly intact. ABSENT: motor sensory deficit Psychiatric exam: PRESENT: appropriate affect, normal mood. ABSENT: homicidal ideation, suicidal ideation Results Laboratory Results: 04/12/20 05:03 04/12/20 10:30 04/12/20 04/12/20 04/12/20 05:03 05:03 10:30 WBC 5.7 RBC 4.02 Hgb 11.6 L Hct 34.7 L MCV 86 MCH 28.7 MCHC 33.3 RDW 17.1 H Plt Count 114 L Seg Neutrophils % Not Reportable Sodium 143.0 Potassium 3.5 L Chloride 110 H Carbon Dioxide 19 L Anion Gap 14 BUN 13 Creatinine 1.29 H Est GFR ( Amer) 51 L Glucose 106 Calcium 8.7 Magnesium 1.5 L Total Bilirubin 0.9 AST 22 Alkaline Phosphatase 80 Total Protein 5.3 L Albumin 2.6 L Lipase 480.8 H 351.1 H 04/07/20 16:06 Troponin I < 0.012 NT-Pro-B Natriuret Pep 3300 H Impressions: Abdomen MRI 04/07/20 00:00 IMPRESSION: Findings consistent with acute superimposed on chronic pancreatitis with pancreatic ductal calculi and significant pancreatic ductal dilatation. Recommend continued follow-up as intrapancreatic ductal neoplasm is not excluded Mild biliary ductal dilatation without obstructing calculus Large cysts most compatible with pseudocyst along the pancreas, the stomach and likely also along the descending colon Inflammatory change and fluid in the upper abdomen with bilateral effusions and subcutaneous edema. Chest X-Ray 04/07/20 15:59 IMPRESSION: Postsurgical changes with volume loss at the right lung. Small right pleural effusion with airspace opacity at the right lung base, may be secondary to atelectasis or pneumonia. Head CT 04/07/20 15:59 IMPRESSION: No acute intracranial hemorrhage or acute territorial infarct. EVIDENCE OF ACUTE STROKE: NO. Abdomen/Pelvis CT 04/07/20 16:27 IMPRESSION: 1. Acute on chronic pancreatitis. Interval development of peripancreatic fluid collections, may represent pseudocysts. Followup CT or MRI in 3 months recommended to re-evaluate and exclude cystic neoplasm. 2. Small ascites. Anasarca. 3. Status post cholecystectomy. Mild dilation of the common bile duct. 4. Status post left nephrectomy. 5. Bilateral pleural effusions, right more than left. Venous Doppler Study 04/07/20 18:37 IMPRESSION: No evidence of left upper extremity DVT. The cephalic and basilic veins were not seen. These are considered superficial veins. Assessment and Plan - Diagnosis (1) Acute on chronic pancreatitis Is this a current diagnosis for this admission?: Yes Plan: Lipase 1300 on admission, severe abdominal pain even to light touch; trending down Unclear etiology of pancreatitis, per patient and family pancreatitis started 03/2019 she has had recurrences since then Denies any heavy alcohol use now or in the past, does not appear to be on any specific drugs that could cause pancreatitis at home, triglycerides normal now and in the past Possible AIP, checked IgG4, pending IV fluids N.p.o. with ice chips, gradually advance diet as tolerated Antiemetics GI consulted: They have very limited availability in this facility General surgery consulted for severe abdominal pain, very complicated abdomen surgical history Continued home pain medication fentanyl patch, added IV Dilaudid as needed 04/09/2020 MRCP reviewed, showed pancreatic duct stone with duct dilatation, multiple enlarging peripancreatic pseudocysts much larger than previous imaging at [facility], acute on chronic pancreatitis Extensive conversation with patient's GI team at [facility]. They would like us to call them on 04/10 when the patient's GI physician Dr. Bojorquez comes back. Phone number is [phone] then press #6 to get to the triage nurse. [facility] GI stated patient's problems are likely too complicated to be definitively managed at their facility but they may consider transfer there to have the pancreatic pseudocyst drained given the have increased substantially in size from her imaging done at the patient's previous admission at [facility]. Ultimately, patient will need definitive treatment at [facility] or [facility] per GI. Advance diet gradually, so far tolerating liquids Continue IV fluids, continue pain management Lipase trending down 04/10/2020-discussed the plan of care with Dr. Bojorquez in [facility] his recommendation is to transfer the patient to [place] for further management. I spoke to the hospitalist Dr. estrella at [facility], unfortunately no beds are available at this time. Plan is to call him back tomorrow to see if the beds are available. In the meantime continue to provide conservative management. 04/11/2020-patient denies any abdominal pain at this time. I called [facility] transfer center to request bed , unfortunately no beds are available at this time. 04/12/2020-patient is still complaining of abdominal pain. Appetite is poor. Called to [facility] transfer center unfortunately they do not beds avilable.. I called [facility] transfer center provided the necessary information , [facility] physicians wants to speak to Dr. Bojorquez in [facility]. (2) Chronic renal insufficiency, stage III (moderate) Is this a current diagnosis for this admission?: Yes Plan: History of RCC status post single nephrectomy Avoid IV contrast if possible Trend BMP Creatinine at baseline 04/10/2020-serum creatinine today is 1.18. Stable. 04/11/2020-serum creatinine today is 1.24. Stable. Patient has a Macias's catheter. She has history of renal cell carcinoma status post single nephrectomy. 04/12/2020-serum creatinine is 1.29. Stable. (3) Pancytopenia Is this a current diagnosis for this admission?: Yes Plan: Check flow cytometry of peripheral blood, she is probably high risk to develop hematologic malignancies given her extensive history of chemotherapy and radiation and multiple cancers Pending flow cytometry 04/10/2020-hemoglobin is 6.5, WBC count is 4.1 platelet count is 102. Pancytope imtiaz. Patient has history of lung cancer and kidney cancer. Flow cytometry is pending. 04/11/20-hemoglobin is 10.4 today with platelet count of 126 and a WBC count of 3300. Most likely secondary to history of lung cancer and kidney cancer. 04/12/20-hemoglobin is 11.6 with platelet count of 114,000 on WBC count of 5700. (4) Anemia, chronic disease Is this a current diagnosis for this admission?: No Plan: 04/10/2020-patient has history of anemia of chronic disease most likely secondary to underlying malignancies. 04/11/2020-patient received 2 units of PRBC yesterday today's hemoglobin is 10.4. Stable. Plan is to closely monitor the labs on daily basis. (5) Hypertension Is this a current diagnosis for this admission?: No Plan: 04/10/2020-blood pressure today's 157/88. Slightly elevated. To provide IV hydralazine PRN. 04/11/2020-blood pressure is 160/80. Restarted on hydralazine 25 mg p.o. every 12 hours. (6) Hypoalbuminemia Is this a current diagnosis for this admission?: Yes Plan: 04/11/2020-serum albumin is 1.7 hypoalbuminemia most likely secondary to poor oral intake. To provide albumin supplementations. - Time Anticipated Discharge Disposition: Tertiary Anticipated Discharge Timeframe: within 48 hours
[2020-04-12] MEDS ORDERED: PROMETHAZINE HCL INJ 25 MG/1 ML VIAL IV ONE (22:22)
[2020-04-13] MEDS: HEPARIN SOD (PORCINE) 5,000 UNIT/ML 1 ML VIAL SUBCUT SCH ×3 (05:24→22:08)
[2020-04-13] MEDS: PANTOPRAZOLE SODIUM 40 MG TABLET.DR PO SCH ×2 (05:32→18:19)
[2020-04-13] MEDS: LIPASE/PROTEASE/AMYLASE 1 CAP CAPSULE.DR PO SCH ×4 (10:32→18:19)
[2020-04-13] MEDS: HYDRALAZINE HCL 25 MG TABLET PO SCH ×3 (11:00→22:09)
[2020-04-13] MEDS: MAGNESIUM OXIDE 400 MG TABLET PO SCH ×3 (11:01→18:20)
[2020-04-13] MEDS: DRONABINOL 2.5 MG CAPSULE PO SCH ×3 (11:02→18:20)
[2020-04-13] MEDS: DULOXETINE HCL 30 MG CAPSULE.DR PO SCH (11:02)
[2020-04-13] MEDS: HYDRALAZINE HCL INJ/PF 20 MG/1 ML SDV IV PRN (11:20)
[2020-04-13 12:50] LABS: TOTAL CELLS COUNTED % (AUTO) 100 %
[2020-04-13 12:58] LABS: ABSOLUTE LYMPHOCYTES (AUTO) 1.8 10^3/uL (0.5-4.7); ABSOLUTE MONOCYTES (AUTO) 0.7 10^3/uL (0.1-1.4); ABSOLUTE NEUT (AUTO) 5.9 10^3/uL (1.7-8.2); BASOPHILS % (AUTO) 0.2 % (0-2); HEMATOCRIT 41.4 % (36.0-47.0); LYMPHOCYTES % (AUTO) 21.2 % (13-45); MEAN CORPUSCULAR HEMOGLOBIN 28.7 pg (27.0-33.4); MEAN CORPUSCULAR HGB CONC 33.2 g/dL (32.0-36.0); MEAN CORPUSCULAR VOLUME 87 fl (80-97); PLATELET COUNT 118 10^3/uL (150-450); RED BLOOD COUNT 4.77 10^6/uL (3.72-5.28); RED CELL DISTRIBUTION WIDTH 17.4 % (11.5-14.0); SEGMENTED NEUTROPHILS % (AUTO) 70.6 % (42-78); WHITE BLOOD COUNT 8.4 10^3/uL (4.0-10.5)
[2020-04-13 12:59] LABS: HEMOGLOBIN 13.7 g/dL (12.0-15.5)
[2020-04-13 13:47] LABS: ALBUMIN 2.3 g/dL (3.5-5.0); ALKALINE PHOSPHATASE 83 U/L (38-126); ANION GAP 16 (5-19); ASPARTATE AMINO TRANSFERASE 20 U/L (14-36); BILIRUBIN,DIRECT 0.5 mg/dL (0.0-0.4); BILIRUBIN,TOTAL 0.8 mg/dL (0.2-1.3); BLOOD UREA NITROGEN 18 mg/dL (7-20); CALCIUM 8.6 mg/dL (8.4-10.2); CARBON DIOXIDE 15 mmol/L (22-30); CHLORIDE 113 mmol/L (98-107); GLUCOSE 141 mg/dL (75-110); POTASSIUM 4.1 mmol/L (3.6-5.0); TOTAL PROTEIN 4.8 g/dL (6.3-8.2)
--- NOTE | 2020-04-13 16:40 | RADIOLOGY REPORT (SQ) ---
EXAM DESCRIPTION: MRI ABDOMEN WITHOUT IMAGES COMPLETED DATE/TIME: 04/13/2020 3:15 pm REASON FOR STUDY: acute on chronic pancreatitis COMPARISON: 04/07/2020 TECHNIQUE: Noncontrast MRCP. Source and MIP images reviewed. LIMITATIONS: None. FINDINGS: GALLBLADDER: Surgically absent. INTRAHEPATIC DUCTS: Stable, mild intrahepatic biliary dilatation. EXTRAHEPATIC DUCTS: Common duct is normal caliber on today's examination. No ductal filling defects noted. PANCREAS: The pancreas is again noted to appear enlarged and edematous with scattered parenchymal rahul cifications. Previously demonstrated cystic lesions appear diminished in size in the study interval, measuring on the order of 5.5 x 2.4 cm (previously 6.2 x 3.6 cm when measured in a similar plane). Of note, this larger communication appears to communicate with the fluid collection tracking along th e lesser curvature of the stomach, which also appears to be diminished in size. Likewise, a fluid co llection tracking along the greater curvature of the stomach appears diminished in size. Fluid previ ously seen along the left hemicolon is no longer visualized. LIVER, SPLEEN, KIDNEYS, ADRENALS: The liver, spleen, right kidney, and adrenal glands are unchanged i n this short study interval. VESSELS: No evidence of aneurysm. Grossly appropriate flow voids in the major vascular structures. LUNG BASES: Persistent bilateral pleural effusions. OTHER: No other significant finding. IMPRESSION: Improving appearance of acute on chronic pancreatitis with diminished volume of several presumed pancreatic pseudocysts as detailed above. Persistent pleural effusions. Otherwise stable c hronic and incidental findings as detailed above. TECHNICAL DOCUMENTATION: JOB ID: [id number] 2010 [employer]- All Rights Reserved Reading location - IP/workstation name: [email or web address]
--- NOTE | 2020-04-13 18:24 | PDOC PROGRESS REPORT ---
Subjective Progress Note for:: 04/13/20 Subjective:: Patient admitted for acute on chronic pancreatitis with elevated lipase and CT abdomen/pelvis showing multiple pancreatic cysts, pancreatic duct stone with dilatation, with peripancreatic fluid and inflammation. General surgery was consulted and they stated patient does not need any surgery at this time. They have signed off as well. Patient has been given IV fluids and pain management which seems to have improved her. Her periorbital edema has not resolved and I am still unsure why she has this. She and her family told me yesterday that she had her peripancreatic fluid drained on endoscopic ultrasound at [facility] a few weeks ago, therefore it is very concerning that this is already recurred since that drainage. I think she would be best served following up with a GI physician and following with them very closely for an extended period of time. I will try to reach out to a GI physician at an outside facility to get their opinion on the case if we are unable to get a GI physician to consult here given they have very few days availability each month. I think the patient overall has a rather poor long-term prognosis and I would not be surprised if she did not survive the next year. Palliative care consult was placed by nursing and I agree with obtaining this assessment. Patient has no new complaints other than continued abdominal pain which seems to be a bit less today. 04/09/2020 I called [facility] and had a rather extensive conversation with the fireproof door maker operations accountant there. He was exceedingly helpful and gave me a lot of useful information about her previous hospitalization there. He states that there was no procedure to drain her peripancreatic fluid and at that time the imaging they had done showed a rather small fluid collection of approximately 1 to 2 cm that was not amenable to drainage. I relayed to him that the MRCP I had done here showed a great deal of increase in the size of this fluid collection and also now has multiple other areas of fluid collection along the pancreas/stomach/colon. He states that once the cysts reached a size of approximately 5 or 6 cm they are more likely to benefit from drainage. He also read me the previous GI physician's note who stated patient has an extremely complicated biliary tree and pancreas disease process which would very likely need extensive ERCP intervention which would include 2 or 3 different instances of ERCP to clear the stone in the pancreatic duct and also correct the multiple strictures in her biliary system. GI physician requested that we call them tomorrow at the phone number [phone] and press #6 to get to the triage nurse. [facility] is at capacity but they may be able to make an exception to get this patient seen there for some intervention. Ultimately, they also stated the patient will likely need to go to a large academic facility such as [place] or [facility] to have the definitive treatment that she requires as even the expertise at [facility] is incapable of handling this very complicated case. We are also both in agreement that despite the patient's relatively young age she may be most appropriate for hospice care at this time rather than going through such extensive procedures when she is already suffered from multiple cancers, an DC, and a stroke. Overall, patient's pain seems to be better today but has not completely resolved. Her periorbital edema and swelling in her left upper extremity have resolved now and will not need to do any further imaging on her head or upper extremity at this time. Lipase down to 400 and creatinine appears to be at baseline. Patient has no new complaints. 04/10/2020-patient is comfortably in the bed communicating well, discussed plan of care with the patient and told her [facility] recommending transfer to [place] patient is willing to go there. She is not interested in palliative care at this time. I spoke to Dr. estrella hospitalist at [place], he agreed that patient needs to come up there but unfortunately they do not have any beds available. I spoke to Dr. Bojorquez in [facility] as per him his colleague who does ERCPs there recommended that patient need to be transferred to [place] because of complicated pancreatic and biliary structure. Plan is to call [place] tomorrow to discuss the case with Dr. estrella again . In the meantime we will continue the present management hemoglobin is 6.5 to transfuse 2 units of PRBC today. 04/11/2020-patient is comfortably in the bed complaining of nausea. She received 2 units of PRBC yesterday latest hemoglobin is 10.2. Denies any abdominal pains at the time of my examination. I called [facility] transfer center to request a bed unfortunately no beds are available at this time. 04/12/2020-no acute events in the last 24 hours. Patient is still complaining of pain wearing pain medications. I called [facility] transfer center and spoke to Dr. Estrella, unfortunately no beds are available. I called the [place] transfer center and to provide detailed information they want to speak to Dr. Reno Nunez for further information. At this time transfer is on hold to [place]. I called [facility] spoke to placement secretary of Dr. Bojorquez and left a message for her that [facility] was to speak to Dr. Bojorquez at this time. CT abdomen and pelvis and abdominal MRI reports are faxed to [facility]. Hopefully we may able to transfer the patient tomorrow. 04/13/2020-no acute events in the last 24 hours. Afebrile. MRCP without contrast was done today the impression from the radiologist is improving the appearance of acute on chronic pancreatitis with a diminished volume off several presumed pancreatic pseudocysts as detailed above. Persistent plus pleural effusions. Stable chronic Incidental Findings. Intrahepatic Duct Shows Stable Mild Intrahepatic Biliary Dilatation. Extrahepatic Ducts-Common Bile Duct Is Normal Caliber on Today's Examination. No Ductal filling defects noticed. Pancreas-pancreas is again noted to have a appearance of enlarged and edematous with scattered parenchymal calcifications. Previously demonstrated cystic lesions A. Diminished in size in the study interval, measuring on order of 5.5 into 2.5 cm. Of note, this large communication appears to communicate with the fluid collection tracking along the lesser curvature of the stomach, which also appears to be diminished in size. Likewise, fluid collection tracking the greater curvature of the stomach appears to be diminished in size. Fluid previously seen along the left hemicolon is no longer visualized. noncontrast MRCP report is faxed to [facility]. At this time 6:20 PM waiting for call from [facility] transfer. Reason For Visit: ACUTE ON CHRONIC PANCREATITIS WITH PSEUDOCYST Physical Exam Vital Signs: Temp Pulse Resp BP Pulse Ox 98.3 F 119 H 20 101/72 98 04/13/20 11:43 04/13/20 14:00 04/13/20 11:43 04/13/20 11:43 04/13/20 11:43 Intake & Output 04/12/20 04/13/20 04/14/20 06:59 06:59 06:59 Intake Total 266 160 50 Output Total 900 269 30 Balance -634 -109 20 Weight 72.2 kg 72.6 kg General appearance: PRESENT: no acute distress, other Head exam: PRESENT: atraumatic Eye exam: PRESENT: conjunctiva pale, PERRLA Ear exam: PRESENT: normal external ear exam Mouth exam: PRESENT: neck supple Teeth exam: PRESENT: poor dentation Neck exam: ABSENT: carotid bruit, JVD, lymphadenopathy, thyromegaly Respiratory exam: PRESENT: decreased breath sounds Cardiovascular exam: PRESENT: tachycardia GI/Abdominal exam: PRESENT: normal bowel sounds, soft. ABSENT: distended, guarding, mass, organolmegaly, rebound, tenderness Rectal exam: PRESENT: deferred Extremities exam: PRESENT: other - Third spacing seen in the upper and lower extremities today. Neurological exam: PRESENT: alert, awake, oriented to person, oriented to place, oriented to time, oriented to situation, CN II-XII grossly intact. ABSENT: motor sensory deficit Psychiatric exam: PRESENT: appropriate affect, normal mood. ABSENT: homicidal ideation, suicidal ideation Results Laboratory Results: 04/13/20 12:31 04/13/20 12:31 04/13/20 04/13/20 12:31 12:31 WBC 8.4 RBC 4.77 Hgb 13.7 D Hct 41.4 MCV 87 MCH 28.7 MCHC 33.2 RDW 17.4 H Plt Count 118 L Seg Neutrophils % 70.6 Sodium 143.8 Potassium 4.1 Chloride 113 H Carbon Dioxide 15 L Anion Gap 16 BUN 18 Creatinine 1.66 H Est GFR ( Amer) 38 L Glucose 141 H Calcium 8.6 Magnesium 1.6 Total Bilirubin 0.8 AST 20 Alkaline Phosphatase 83 Total Protein 4.8 L Albumin 2.3 L Lipase 530.5 H 04/07/20 16:06 Troponin I < 0.012 NT-Pro-B Natriuret Pep 3300 H Impressions: Chest X-Ray 04/07/20 15:59 IMPRESSION: Postsurgical changes with volume loss at the right lung. Small right pleural effusion with airspace opacity at the right lung base, may be secondary to atelectasis or pneumonia. Head CT 04/07/20 15:59 IMPRESSION: No acute intracranial hemorrhage or acute territorial infarct. EVIDENCE OF ACUTE STROKE: NO. Abdomen/Pelvis CT 04/07/20 16:27 IMPRESSION: 1. Acute on chronic pancreatitis. Interval development of peripancreatic fluid collections, may represent pseudocysts. Followup CT or MRI in 3 months recommended to re-evaluate and exclude cystic neoplasm. 2. Small ascites. Anasarca. 3. Status post cholecystectomy. Mild dilation of the common bile duct. 4. Status post left nephrectomy. 5. Bilateral pleural effusions, right more than left. Venous Doppler Study 04/07/20 18:37 IMPRESSION: No evidence of left upper extremity DVT. The cephalic and basilic veins were not seen. These are considered superficial veins. Abdomen MRI 04/13/20 00:00 IMPRESSION: Improving appearance of acute on chronic pancreatitis with diminished volume of several presumed pancreatic pseudocysts as detailed above. Persistent pleural effusions. Otherwise stable chronic and incidental findings as detailed above. Assessment and Plan - Diagnosis (1) Acute on chronic pancreatitis Is this a current diagnosis for this admission?: Yes Plan: Lipase 1300 on admission, severe abdominal pain even to light touch; trending down Unclear etiology of pancreatitis, per patient and family pancreatitis started 03/2019 she has had recurrences since then Denies any heavy alcohol use now or in the past, does not appear to be on any specific drugs that could cause pancreatitis at home, triglycerides normal now and in the past Possible AIP, checked IgG4, pending IV fluids N.p.o. with ice chips, gradually advance diet as tolerated Antiemetics GI consulted: They have very limited availability in this facility General surgery consulted for severe abdominal pain, very complicated abdomen surgical history Continued home pain medication fentanyl patch, added IV Dilaudid as needed 04/09/2020 MRCP reviewed, showed pancreatic duct stone with duct dilatation, multiple enlarging peripancreatic pseudocysts much larger than previous imaging at [facility], acute on chronic pancreatitis Extensive conversation with patient's GI team at [facility]. They would like us to call them on 04/10 when the patient's GI physician Dr. Bojorquez comes back. Phone number is [phone] then press #6 to get to the triage nurse. [facility] GI stated patient's problems are likely too complicated to be definitively managed at their facility but they may consider transfer there to have the pancreatic pseudocyst drained given the have increased substantially in size from her imaging done at the patient's previous admission at [facility]. Ultimately, patient will need definitive treatment at [place] or [facility] per GI. Advance diet gradually, so far tolerating liquids Continue IV fluids, continue pain management Lipase trending down 04/10/2020-discussed the plan of care with Dr. Bojorquez in [facility] his recommendation is to transfer the patient to [place] for further management. I spoke to the hospitalist Dr. estrella at [facility], unfortunately no beds are available at this time. Plan is to call him back tomorrow to see if the beds are available. In the meantime continue to provide conservative management. 04/11/2020-patient denies any abdominal pain at this time. I called [facility] transfer center to request bed , unfortunately no beds are available at this time. 04/12/2020-patient is still complaining of abdominal pain. Appetite is poor. Called to [facility] transfer center unfortunately they do not beds avilable.. I called [facility] [place] transfer [facility] provided the necessary information , [facility] physicians wants to speak to Dr. Bojorquez in [facility]. 04/13/2020-patient is receiving IV Dilaudid on a as needed basis. Appetite is st ill very poor. Occasionally complaining of nausea and vomiting bile-stained fluid. Noncontrast MRCP done today. Please review the MRI report. (2) Chronic renal insufficiency, stage III (moderate) Is this a current diagnosis for this admission?: Yes Plan: History of RCC status post single nephrectomy Avoid IV contrast if possible Trend BMP Creatinine at baseline 04/10/2020-serum creatinine today is 1.18. Stable. 04/11/2020-serum creatinine today is 1.24. Stable. Patient has a Macias's catheter. She has history of renal cell carcinoma status post single nephrectomy. 04/12/2020-serum creatinine is 1.29. Stable. 04/13/2020-serum creatinine today is 1.66. Trending up at this time. (3) Pancytopenia Is this a current diagnosis for this admission?: Yes Plan: Check flow cytometry of peripheral blood, she is probably high risk to develop hematologic malignancies given her extensive history of chemotherapy and radiation and multiple cancers Pending flow cytometry 04/10/2020-hemoglobin is 6.5, WBC count is 4.1 platelet count is 102. Pancytopeni a. Patient has history of lung cancer and kidney cancer. Flow cytometry is pending. 04/11/20-hemoglobin is 10.4 today with platelet count of 126 and a WBC count of 3300. Most likely secondary to history of lung cancer and kidney cancer. 04/12/20-hemoglobin is 11.6 with platelet count of 114,000 on WBC count of 5700. 04/13/2020-hemoglobin is 13.7, platelet count is 1 18,000, WBC count is 8400. (4) Anemia, chronic disease Is this a current diagnosis for this admission?: No Plan: 04/10/2020-patient has history of anemia of chronic disease most likely secondary to underlying malignancies. 04/11/2020-patient received 2 units of PRBC yesterday today's hemoglobin is 10.4. Stable. Plan is to closely monitor the labs on daily basis. 04/13/2020-patient hemoglobin today is 13.7. (5) Hypertension Is this a current diagnosis for this admission?: No Plan: 04/10/2020-blood pressure today's 157/88. Slightly elevated. To provide IV hydralazine PRN. 04/11/2020-blood pressure is 160/80. Restarted on hydralazine 25 mg p.o. every 12 hours. 04/13/20-blood pressure today is on the softer side. 101/60. (6) Hypoalbuminemia Is this a current diagnosis for this admission?: Yes Plan: 04/11/2020-serum albumin is 1.7 hypoalbuminemia most likely secondary to poor oral intake. To provide albumin supplementations. - Time Anticipated Discharge Disposition: Tertiary Anticipated Discharge Timeframe: within 24 hours
[2020-04-13] MEDS: FENTANYL 12 MCG/HR PATCH.TD72 TD SCH (22:17)
[2020-04-14] MEDS: HYDRALAZINE HCL INJ/PF 20 MG/1 ML SDV IV PRN (00:35)
[2020-04-14] MEDS: PANTOPRAZOLE SODIUM 40 MG TABLET.DR PO SCH (05:28)
[2020-04-14] MEDS: HEPARIN SOD (PORCINE) 5,000 UNIT/ML 1 ML VIAL SUBCUT SCH ×3 (05:28→23:27)
[2020-04-14] MEDS: ONDANSETRON HCL INJ/PF 4 MG/2 ML SDV IV PRN (06:33)
[2020-04-14] MEDS ORDERED: PROMETHAZINE HCL INJ 25 MG/1 ML VIAL IV PRN (06:37)
[2020-04-14] MEDS ORDERED: PHARMACY COMMUNICATION ORDER MC NR (06:45)
[2020-04-14] MEDS: METOCLOPRAMIDE HCL INJ/PF 10 MG/2 ML SDV IV ONE ×2 (07:02→11:01)
--- NOTE | 2020-04-14 09:25 | RADIOLOGY REPORT (SQ) ---
EXAM DESCRIPTION: CHEST SINGLE VIEW IMAGES COMPLETED DATE/TIME: 04/14/2020 7:47 am REASON FOR STUDY: ngt insertion COMPARISON: 04/07/2020. EXAM PARAMETERS: NUMBER OF VIEWS: One view. TECHNIQUE: Single frontal radiographic view of the chest acquired. RADIATION DOSE: NA LIMITATIONS: Upper chest cropped from the film. FINDINGS: Nasogastric tube tip overlies the gastric fundus. There is complete opacification of the visualized right lung. Right-sided central line position not significantly changed. IMPRESSION: Nasogastric tube in the stomach. TECHNICAL DOCUMENTATION: JOB ID: [id number] 2010 [employer]- All Rights Reserved Reading location - IP/workstation name: [email or web address]
[2020-04-14] MEDS: LIPASE/PROTEASE/AMYLASE 1 CAP CAPSULE.DR PO SCH ×3 (10:25→18:40)
[2020-04-14] MEDS: DULOXETINE HCL 30 MG CAPSULE.DR PEG SCH (10:25)
[2020-04-14] MEDS: HYDRALAZINE HCL 25 MG TABLET NG SCH ×2 (10:25→23:28)
[2020-04-14] MEDS: MAGNESIUM OXIDE 400 MG TABLET NG SCH ×2 (10:26→18:40)
[2020-04-14] MEDS: DRONABINOL 2.5 MG CAPSULE NG SCH ×2 (10:26→18:40)
[2020-04-14 15:00] LABS: ALBUMIN 2.1 g/dL (3.5-5.0); ALKALINE PHOSPHATASE 452 U/L (38-126); ANION GAP 10 (5-19); ASPARTATE AMINO TRANSFERASE 47 U/L (14-36); BILIRUBIN,DIRECT 0.6 mg/dL (0.0-0.4); BILIRUBIN,TOTAL 0.8 mg/dL (0.2-1.3); BLOOD UREA NITROGEN 23 mg/dL (7-20); CALCIUM 7.8 mg/dL (8.4-10.2); CARBON DIOXIDE 21 mmol/L (22-30); CHLORIDE 114 mmol/L (98-107); GLUCOSE 141 mg/dL (75-110); POTASSIUM 3.2 mmol/L (3.6-5.0); TOTAL PROTEIN 4.6 g/dL (6.3-8.2)
[2020-04-14] MEDS ORDERED: NORMAL SALINE 1000 ML 1,000 ML IV PRN (15:24)
--- NOTE | 2020-04-14 16:15 | RADIOLOGY REPORT (SQ) ---
EXAM DESCRIPTION: CT CHEST WITHOUT IMAGES COMPLETED DATE/TIME: 04/14/2020 3:44 pm REASON FOR STUDY: abn cxr; ?rt lung collapse COMPARISON: Chest radiograph earlier same day; CT chest 02/09/2020 TECHNIQUE: CT scan performed of the chest without intravenous contrast. Images reviewed with lung, soft tissue and bone windows. Reconstructed coronal and sagittal MPR images reviewed. All images st ored on PACS. All CT scanners at this facility use dose modulation, iterative reconstruction, and/or weight based d osing when appropriate to reduce radiation dose to as low as reasonably achievable (ALARA). [facility]: Dose Right [facility]: CareDose [facility]: Dose Right [facility]: Teradose 4D [facility]: Tvoop RADIATION DOSE: CT Rad equipment meets quality standard of care and radiation dose reduction techniq ues were employed. CTDIvol: 8.2 mGy. DLP: 306 mGy-cm. mGy. LIMITATIONS: No technical limitations. FINDINGS: LUNGS AND PLEURA: There is a large right pleural effusion with moderate ground-glass opaci ty of the right lung base. A moderate left pleural effusion is also present. The left lung is other arteaga grossly clear. HILAR AND MEDIASTINAL STRUCTURES: No identified masses or abnormal nodes. No obvious aneurysm. HEART AND VASCULAR STRUCTURES: No aneurysm. No pericardial effusion. Mild coronary artery calcifica tions. A right sided central venous catheter is present with the tip terminating at the superior cav oatrial junction. UPPER ABDOMEN: An enteric tube terminates within the gastric lumen. The pancreas demonstrates wendy us parenchymal calcifications. Cholecystectomy clips are noted. THYROID AND OTHER SOFT TISSUES: No masses. No adenopathy. BONES: No acute fracture. No aggressive osseous lesion. OTHER: No other significant findings. IMPRESSION: Large right and moderate left pleural effusions. Superimposed infectious process at the lung bases is not excluded. TECHNICAL DOCUMENTATION: JOB ID: [id number] Quality ID # [id number]: Final reports with documentation of one or more dose reduction techniques (e.g., Au tomated exposure control, adjustment of the mA and/or kV according to patient size, use of iterative reconstruction technique) 2010 [employer]- All Rights Reserved Reading location - IP/workstation name: [email or web address]
[2020-04-14 16:56] LABS: HEMOGLOBIN 13.1 g/dL (12.0-15.5); MEAN CORPUSCULAR HGB CONC 33.5 g/dL (32.0-36.0); MEAN CORPUSCULAR VOLUME 87 fl (80-97); RED CELL DISTRIBUTION WIDTH 17.8 % (11.5-14.0); WHITE BLOOD COUNT 9.6 10^3/uL (4.0-10.5)
[2020-04-14 17:13] LABS: PLATELET COUNT 112 10^3/uL (150-450)
[2020-04-14 17:49] LABS: INTERNATIONAL RATION (INR) 1.04; PROTHROMBIN TIME 13.8 SEC (11.4-15.4)
[2020-04-14 17:50] LABS: PARTIAL THROMBOPLASTIN TIME 32.8 SEC (23.5-35.8)
[2020-04-14 18:09] LABS: TOTAL PROTEIN 4.9 g/dL (6.3-8.2)
[2020-04-14] MEDS: PANTOPRAZOLE SODIUM 40 MG PACKET.DR NG SCH (18:40)
[2020-04-14] MEDS: METRONIDAZOLE 500 MG/NS RTU 500 MG/100 ML RTUPB IV SCH ×2 (18:41→23:26)
--- NOTE | 2020-04-14 19:18 | PDOC PROGRESS REPORT ---
Subjective Progress Note for:: 04/14/20 Subjective:: The patient is a 64-year-old female with a past medical history of CHF, CAD, AL, hypertension, hyperlipidemia, bronchitis, ischemic CVA, ESRD (not on dialysis) related to renal carcinoma s/p left nephrectomy 2007, lung cancer with a right upper partial lobectomy 2018, pancreatic cancer 2014, GERD, arthritis, gout, and anemia who was admitted 04/07/2020 with acute on chronic pancreatitis. Patient was seen on morning rounds. She is found resting in bed, comfortably, on room air. She now has an NG tube in place; Awaiting x-ray for validation of placement prior to starting low wall suction due to development of frequent bilious vomiting overnight. Patient denies current abdominal discomfort or nausea. She is alert and oriented x4; denies all other complaints besides fatigue. She specifically denies fever, chills, chest pain, palpitations, dyspnea, cough, abdominal pain. She has no questions or concerns at this time. No concerns per nursing. Reason For Visit: ACUTE ON CHRONIC PANCREATITIS WITH PSEUDOCYST Physical Exam Vital Signs: Temp Pulse Resp BP Pulse Ox 97.8 F 112 H 18 147/104 H 98 04/14/20 15:54 04/14/20 15:54 04/14/20 15:54 04/14/20 15:54 04/14/20 15:54 Intake & Output 04/13/20 04/14/20 04/15/20 06:59 06:59 06:59 Intake Total 160 50 50 Output Total 269 50 150 Balance -109 0 -100 Weight 72.6 kg 72.7 kg 72.7 kg General appearance: PRESENT: disheveled, well-developed, well-nourished, other - Chronically ill-appearing; generalized edema Head exam: PRESENT: atraumatic, normocephalic Eye exam: PRESENT: conjunctiva pink, EOMI, PERRLA. ABSENT: scleral icterus Mouth exam: PRESENT: moist, tongue midline Teeth exam: PRESENT: poor dentation Respiratory exam: PRESENT: clear to auscultation marianna, decreased breath sounds - Throughout; poor inspiratory effort, symmetrical, unlabored. ABSENT: rales, rhonchi, wheezes Cardiovascular exam: PRESENT: RRR, +S1, +S2. ABSENT: diastolic murmur, rubs, systolic murmur Pulses: PRESENT: normal dorsalis pedis pul Vascular exam: PRESENT: normal capillary refill GI/Abdominal exam: PRESENT: hypoactive bowel sounds, soft. ABSENT: distended, guarding, mass, organolmegaly, rebound, tenderness Rectal exam: PRESENT: deferred Extremities exam: PRESENT: full ROM. ABSENT: calf tenderness, clubbing, pedal edema Neurological exam: PRESENT: alert, awake, oriented to person, oriented to place, oriented to time, oriented to situation, CN II-XII grossly intact. ABSENT: motor sensory deficit Psychiatric exam: PRESENT: flat affect, normal mood. ABSENT: homicidal ideation, suicidal ideation Skin exam: PRESENT: dry, intact, warm. ABSENT: cyanosis, rash Results Laboratory Results: 04/14/20 16:30 04/14/20 14:20 04/14/20 04/14/20 04/14/20 10:05 10:05 10:59 WBC Cancelled RBC Cancelled Hgb Cancelled Hct Cancelled MCV Cancelled MCH Cancelled MCHC Cancelled RDW Cancelled Plt Count Cancelled Sodium Cancelled Cancelled Potassium Cancelled Cancelled Chloride Cancelled Cancelled Carbon Dioxide Cancelled Cancelled Anion Gap Cancelled Cancelled BUN Cancelled Cancelled Creatinine Cancelled Cancelled Est GFR ( Amer) Cancelled Cancelled Est GFR (Non-Af Amer) Cancelled Cancelled Glucose Cancelled Cancelled Calcium Cancelled Cancelled Total Bilirubin Cancelled Cancelled AST Cancelled Cancelled Alkaline Phosphatase Cancelled Cancelled Total Protein Cancelled Cancelled Albumin Cancelled Cancelled 04/14/20 04/14/20 04/14/20 10:59 14:20 16:30 WBC Cancelled 9.6 RBC Cancelled 4.50 Hgb Cancelled 13.1 Hct Cancelled 39.0 MCV Cancelled 87 MCH Cancelled 29.0 MCHC Cancelled 33.5 RDW Cancelled 17.8 H Plt Count Cancelled 112 L Sodium 145.1 H Potassium 3.2 L Chloride 114 H Carbon Dioxide 21 L Anion Gap 10 BUN 23 H Creatinine 1.74 H Est GFR ( Amer) 36 L Est GFR (Non-Af Amer) Glucose 141 H Calcium 7.8 L Total Bilirubin 0.8 AST 47 H Alkaline Phosphatase 452 H Total Protein 4.6 L Albumin 2.1 L 04/14/20 17:30 WBC RBC Hgb Hct MCV MCH MCHC RDW Plt Count Sodium Potassium Chloride Carbon Dioxide Anion Gap BUN Creatinine Est GFR ( Amer) Est GFR (Non-Af Amer) Glucose Calcium Total Bilirubin AST Alkaline Phosphatase Total Protein 4.9 L Albumin 04/07/20 16:06 Troponin I < 0.012 NT-Pro-B Natriuret Pep 3300 H Impressions: Head CT 04/07/20 15:59 IMPRESSION: No acute intracranial hemorrhage or acute territorial infarct. EVIDENCE OF ACUTE STROKE: NO. Abdomen/Pelvis CT 04/07/20 16:27 IMPRESSION: 1. Acute on chronic pancreatitis. Interval development of peripancreatic fluid collections, may represent pseudocysts. Followup CT or MRI in 3 months recommended to re-evaluate and exclude cystic neoplasm. 2. Small ascites. Anasarca. 3. Status post cholecystectomy. Mild dilation of the common bile duct. 4. Status post left nephrectomy. 5. Bilateral pleural effusions, right more than left. Venous Doppler Study 04/07/20 18:37 IMPRESSION: No evidence of left upper extremity DVT. The cephalic and basilic veins were not seen. These are considered superficial veins. Abdomen MRI 04/13/20 00:00 IMPRESSION: Improving appearance of acute on chronic pancreatitis with diminished volume of several presumed pancreatic pseudocysts as detailed above. Persistent pleural effusions. Otherwise stable chronic and incidental findings as detailed above. Chest CT 04/14/20 00:00 IMPRESSION: Large right and moderate left pleural effusions. Superimposed infectious process at the lung bases is not excluded. Chest X-Ray 04/14/20 00:00 IMPRESSION: Nasogastric tube in the stomach. Assessment and Plan - Diagnosis (1) Chronic alcoholic pancreatitis Is this a current diagnosis for this admission?: Yes Plan: Early signs of improvement. Decreased abdominal discomfort; though bilious vomiting overnight. Lipase overall trending down 1382-> 530 Unclear etiology of pancreatitis, per patient and family pancreatitis started 03/2019 she has had recurrences since then. She does have a history of alcohol dependence and pancreatic cancer. -Triglycerides 95 -Unlikely AIP, checked IgG4; 1 General surgery consulted for severe abdominal pain, very complicated abdomen surgical history. Determined not to have an acute surgical need at this time. MRCP (04/07/20) showed pancreatic duct stone with duct dilatation, multiple enlarging peripancreatic pseudocysts much larger than previous imaging at [facility], acute on chronic pancreatitis Repeat ABD MRI (04/13/20) shows improved appearance of acute on chronic pancreatitis with diminished volume of several presumed pancreatic pseudocysts. Persistent pleural effusion noted. Otherwise stable chronic and incidental findings. Previous provider has had extensive conversation with patient's GI team at [facility]. [facility] GI stated patient's problems are likely too complicated to be definitively managed at their facility but they may consider transfer there to have the pancreatic pseudocyst drained given the have increased substantially in size from her imaging done at the patient's previous admission at [facility]. Ultimately, patient will need definitive treatment at [place] or [facility] per GI. Previous provider also spoke with Dr. Estrella at [facility]; has been accepted to their facility but unfortunately no beds are available at this time. Continues to be on wait list. Provider then spoke with [place] transfer center; they request daily updates prior to making formal bed offer. Blood cultures pending NG tube today due to development of bilious vomiting. Continue n.p.o. status. Generous IV fluids. Antiemetics and analgesics as needed. Have started empiric antibiotics w/ Cefepime and Lipase Follow-up chemistries. (2) Pleural effusion Is this a current diagnosis for this admission?: Yes Plan: Chest x-ray demonstrated complete opacification of the visualized right lung. Patient with a known partial right upper lobectomy. Currently maintaining oxygen saturations on room air without increased work of breathing or other signs of distress. Follow-up CT chest demonstrated large right and moderate left pleural effusion superimposed on possible infectious process at the lung bases. Discussed with RA; due to the patient's complicated medical history and comorbidities, would prefer the interventional list due to the necessary thoracentesis (possible chest tube placement given the volume of the pleural effusion). Should the patient's respiratory status worsen, they will be available to do this is a stat procedure this weekend, otherwise, she will be scheduled for Thursday. Due to the moderate groundglass opacity noted to the right lung base, will start the patient on empiric antibiotics as she did experience multiple episodes of emesis overnight. Blood cultures are pending. Start cefepime and metronidazole. (3) Chronic renal insufficiency, stage III (moderate) Is this a current diagnosis for this admission?: Yes Plan: Acute on chronic renal insufficiency; Cr 1.26-> 1.18-> 1.74 History of RCC status post single nephrectomy Avoid IV contrast if possible Start gentle IVF. Avoid nephrotoxic medications as able. Follow-up chemistry. Strict I&O's. (4) Hypertension Is this a current diagnosis for this admission?: No Plan: Blood pressures continue to be slightly elevated. Provide for appropriate pain management. IV hydralazine as needed for blood pressure control. (5) Hypoalbuminemia Is this a current diagnosis for this admission?: Yes Plan: Slightly improved; albumin 2.1. Continues to be in n.p.o. status. Patient on day #7 of admission; if she does not begin showing significant improvement may need to consider short-term TPN option. (6) Pancytopenia Is this a current diagnosis for this admission?: Yes Plan: Overall improved. WBCs 9.6, hemoglobin 13.1/HCT 39, lately at 112. Continue to monitor. (7) Anemia of chronic disease Is this a current diagnosis for this admission?: Yes - Time Time Spent with patient: 35 or more minutes Medications reviewed and adjusted accordingly: Yes Anticipated Discharge Disposition: Tertiary Anticipated Discharge Timeframe: when bed available
[2020-04-14] MEDS ORDERED: CEFEPIME 2 GM/D5W RTU 2 GM/50 ML RTUPB IV SCH (22:00)
[2020-04-15] MEDS ORDERED: CEFEPIME 2 GM/D5W RTU 2 GM/50 ML RTUPB IV ONE (00:48)
[2020-04-15] MEDS ORDERED: NORMAL SALINE 1000 ML 1,000 ML IV ONE (03:15)
[2020-04-15] MEDS: ALBUMIN HUMAN 12.5 GM/50 ML RTUINJ IV SCH ×2 (03:27→05:37)
[2020-04-15] MEDS: HEPARIN SOD (PORCINE) 5,000 UNIT/ML 1 ML VIAL SUBCUT SCH ×3 (05:32→22:43)
[2020-04-15] MEDS: METRONIDAZOLE 500 MG/NS RTU 500 MG/100 ML RTUPB IV SCH ×3 (05:37→17:40)
[2020-04-15] MEDS: PANTOPRAZOLE SODIUM 40 MG PACKET.DR NG SCH ×2 (05:37→17:41)
[2020-04-15 08:23] LABS: ALBUMIN 2.3 g/dL (3.5-5.0); ALKALINE PHOSPHATASE 245 U/L (38-126); ANION GAP 11 (5-19); ASPARTATE AMINO TRANSFERASE 23 U/L (14-36); BILIRUBIN,DIRECT 0.5 mg/dL (0.0-0.4); BILIRUBIN,TOTAL 0.9 mg/dL (0.2-1.3); BLOOD UREA NITROGEN 26 mg/dL (7-20); CALCIUM 8.1 mg/dL (8.4-10.2); CARBON DIOXIDE 18 mmol/L (22-30); CHLORIDE 116 mmol/L (98-107); GLUCOSE 116 mg/dL (75-110); POTASSIUM 3.6 mmol/L (3.6-5.0); TOTAL PROTEIN 4.5 g/dL (6.3-8.2)
[2020-04-15] MEDS ORDERED: NORMAL SALINE 1000 ML 1,000 ML IV PRN (08:30)
--- NOTE | 2020-04-15 09:57 | RADIOLOGY REPORT (SQ) ---
EXAM DESCRIPTION: KUB/ABDOMEN (SINGLE VIEW) IMAGES COMPLETED DATE/TIME: 04/15/2020 9:22 am REASON FOR STUDY: vomiting COMPARISON: KUB 01/21/2020 NUMBER OF VIEWS: One view. TECHNIQUE: Supine radiographic image of the abdomen acquired. LIMITATIONS: None. FINDINGS: BOWEL GAS PATTERN: No dilated loops of small bowel. No sign for obstruction. CALCIFICATIONS: No suspicious calcifications. SOFT TISSUES: No gross mass or suggestion of organomegaly. HARDWARE: None in the abdomen. BONES: No acute fracture. No worrisome bone lesions. OTHER: Chain sutures are present in the right lower quadrant and numerous surgical chhaya and suture s are present throughout the abdomen and pelvis. IMPRESSION: Nonobstructive bowel gas pattern. TECHNICAL DOCUMENTATION: JOB ID: [id number] 2010 [employer]- All Rights Reserved Reading location - IP/workstation name: [email or web address]
[2020-04-15] MEDS ORDERED: DEXTROSE 40% GEL 15 GM TUBE PO PRN ×2 (10:03)
[2020-04-15] MEDS ORDERED: AMINO ACIDS 5 %/DEXTROSE 20 % 1,000 ML IV PRN (10:03)
[2020-04-15] MEDS ORDERED: DEXTROSE 10%-WATER 1,000 ML IV PRN (10:03)
[2020-04-15] MEDS ORDERED: DEXTROSE 50%-WATER 25 GM/50 ML DISP.SYRIN IV PRN ×2 (10:03)
[2020-04-15] MEDS ORDERED: GLUCAGON,HUMAN RECOMB 1 MG INJ IM PRN (10:03)
[2020-04-15] MEDS: MAGNESIUM OXIDE 400 MG TABLET NG SCH ×2 (11:28→17:41)
[2020-04-15] MEDS: LIPASE/PROTEASE/AMYLASE 1 CAP CAPSULE.DR PO SCH ×3 (11:28→17:41)
[2020-04-15] MEDS: DRONABINOL 2.5 MG CAPSULE NG SCH (11:28)
[2020-04-15] MEDS: DULOXETINE HCL 30 MG CAPSULE.DR PEG SCH (11:28)
[2020-04-15] MEDS: ACETAMINOPHEN 325 MG TABLET NG PRN ×2 (11:29→17:41)
[2020-04-15] MEDS: HYDRALAZINE HCL 25 MG TABLET NG SCH ×2 (11:29→22:42)
[2020-04-15] MEDS: CEFEPIME HCL 2 GM in DEXTROSE 5%-WATER 50 ML IV SCH ×2 (11:29→22:42)
[2020-04-15] MEDS ORDERED: INSULIN REG, HUMAN 100 UNIT/ML 3 ML VIAL SUBCUT SCH (12:00)
[2020-04-15] MEDS: INSULIN REG, HUMAN 100 UNIT/ML 3 ML VIAL (PYX) SUBCUT SCH ×2 (14:04→17:42)
[2020-04-15 14:50] LABS: ANION GAP 9 (5-19); BLOOD UREA NITROGEN 23 mg/dL (7-20); CALCIUM 7.6 mg/dL (8.4-10.2); CARBON DIOXIDE 22 mmol/L (22-30); CHLORIDE 115 mmol/L (98-107); GLUCOSE 110 mg/dL (75-110)
[2020-04-15 14:57] LABS: POTASSIUM 2.8 mmol/L (3.6-5.0)
[2020-04-15 16:31] LABS: HEMATOCRIT 28.2 % (36.0-47.0); MEAN CORPUSCULAR HEMOGLOBIN 28.8 pg (27.0-33.4); MEAN CORPUSCULAR HGB CONC 33.6 g/dL (32.0-36.0); MEAN CORPUSCULAR VOLUME 86 fl (80-97); RED BLOOD COUNT 3.29 10^6/uL (3.72-5.28); WHITE BLOOD COUNT 6.8 10^3/uL (4.0-10.5)
[2020-04-15 16:51] LABS: HEMOGLOBIN 9.5 g/dL (12.0-15.5); PLATELET COUNT 76 10^3/uL (150-450)
[2020-04-15 16:53] LABS: ABSOLUTE MONOCYTES # (MANUAL) 0.1 10^3/uL (0.1-1.4); BASOPHILS % (MANUAL) 0 % (0-2); EOSINOPHILS % (MANUAL) 0 % (0-6); LYMPHOCYTES % (MANUAL) 14 % (13-45); MONOCYTES % (MANUAL) 2 % (3-13); SEGMENTED NEUTROPHILS % (MAN) 84 % (42-78); TOTAL CELLS COUNTED 100
[2020-04-15 16:56] LABS: ANISOCYTOSIS 1+; OVALOCYTES 1+; PLATELET COMMENT DECREASED; TEAR DROP CELLS SLIGHT
[2020-04-15] MEDS ORDERED: POTASSI CL 20 MEQ/50 ML RIDER 20 MEQ/50 ML RTUPB IV SCH (17:00)
[2020-04-15] MEDS: AMINO ACIDS 5 %/DEXTROSE 20 % 1,000 ML IV PRN (18:42)
--- NOTE | 2020-04-15 18:51 | PDOC PROGRESS REPORT ---
Subjective Progress Note for:: 04/15/20 Subjective:: The patient is a 64-year-old female with a past medical history of CHF, CAD, [place], hypertension, hyperlipidemia, bronchitis, ischemic CVA, ESRD (not on dialysis) related to renal carcinoma s/p left nephrectomy 2007, lung cancer with a right upper partial lobectomy 2018, pancreatic cancer 2014, GERD, arthritis, gout, and anemia who was admitted 04/07/2020 with acute on chronic pancreatitis. Patient was seen on morning rounds. She is found resting in bed, comfortably, on room air. She now has an NG tube in place; Per nursing, 300 mL's of bilious fluid overnight. Patient reports decreased abdominal discomfort and no further episodes of nausea or vomiting. Confirms that she is passing gas. No bowel movements. Patient does admit to being thirsty and believes that she may be slightly hungry; requesting ice chips. She is much more alert today and does confirm that she is feeling somewhat better. She denies fever, chills, chest pain, palpitations, dyspnea, cough, abdominal pain, nausea and vomiting. We discussed that she does not have a bed offer at [facility] or [facility] at this time. She is showing us some indications of improvement in her imaging and lab work ( other than renal function, although, this afternoon that is slightly improved as well). I proposed starting TPN as she is gone several days without nutrition. She is agreeable. She remains interested in transfer should 1 of the tertiary facilities make a bed offer, however, she also states that she is pleased to hear that she is showing some signs of "turning it around." She has no questions or concerns at this time. No concerns per nursing. Reason For Visit: ACUTE ON CHRONIC PANCREATITIS WITH PSEUDOCYST Physical Exam Vital Signs: Temp Pulse Resp BP Pulse Ox 98.1 F 86 20 116/77 98 04/15/20 15:28 04/15/20 15:28 04/15/20 15:28 04/15/20 15:28 04/15/20 15:28 Intake & Output 04/14/20 04/15/20 04/16/20 06:59 06:59 06:59 Intake Total 50 400 530 Output Total 50 620 400 Balance 0 -220 130 Weight 72.7 kg 69.7 kg General appearance: PRESENT: no acute distress, cooperative, well-developed, well-nourished, other - Chronically ill-appearing; +1 to +2 pitting edema all extremities Head exam: PRESENT: atraumatic, normocephalic Eye exam: PRESENT: conjunctiva pink, EOMI, PERRLA. ABSENT: scleral icterus Mouth exam: PRESENT: moist, tongue midline Teeth exam: PRESENT: poor dentation Respiratory exam: PRESENT: clear to auscultation marianna, symmetrical, unlabored. ABSENT: rales, rhonchi, wheezes Cardiovascular exam: PRESENT: RRR. ABSENT: diastolic murmur, rubs, systolic murmur Vascular exam: PRESENT: normal capillary refill GI/Abdominal exam: PRESENT: hypoactive bowel sounds, normal bowel sounds, soft, other - NG tube to low wall suction. ABSENT: distended, guarding, mass, organolmegaly, rebound, tenderness Rectal exam: PRESENT: deferred Extremities exam: PRESENT: full ROM. ABSENT: calf tenderness, clubbing, pedal edema Neurological exam: PRESENT: alert, awake, oriented to person, oriented to place, oriented to time, oriented to situation, CN II-XII grossly intact, other - Fatigued; improved alertness today. ABSENT: motor sensory deficit Psychiatric exam: PRESENT: appropriate affect, normal mood. ABSENT: homicidal ideation, suicidal ideation Skin exam: PRESENT: dry, intact, warm. ABSENT: cyanosis, rash Results Laboratory Results: 04/15/20 16:15 04/15/20 14:15 04/15/20 04/15/20 04/15/20 07:50 07:50 07:50 WBC Cancelled RBC Cancelled Hgb Cancelled Hct Cancelled MCV Cancelled MCH Cancelled MCHC Cancelled RDW Cancelled Plt Count Cancelled Seg Neutrophils % Cancelled Sodium 144.6 Potassium 3.6 Chloride 116 H Carbon Dioxide 18 L Anion Gap 11 BUN 26 H Creatinine 1.83 H Est GFR ( Amer) 34 L Glucose 116 H Calcium 8.1 L Magnesium 1.7 Total Bilirubin 0.9 AST 23 Alkaline Phosphatase 245 H Total Protein 4.5 L Albumin 2.3 L Lipase 350.7 H 04/15/20 04/15/20 04/15/20 09:04 14:15 14:15 WBC Cancelled Cancelled RBC Cancelled Cancelled Hgb Cancelled Cancelled Hct Cancelled Cancelled MCV Cancelled Cancelled MCH Cancelled Cancelled MCHC Cancelled Cancelled RDW Cancelled Cancelled Plt Count Cancelled Cancelled Seg Neutrophils % Cancelled Cancelled Sodium 146.1 H Potassium 2.8 L* Chloride 115 H Carbon Dioxide 22 Anion Gap 9 BUN 23 H Creatinine 1.79 H Est GFR ( Amer) 35 L Glucose 110 Calcium 7.6 L Magnesium Total Bilirubin AST Alkaline Phosphatase Total Protein Albumin Lipase 04/15/20 16:15 WBC 6.8 RBC 3.29 L Hgb 9.5 L D Hct 28.2 L MCV 86 MCH 28.8 MCHC 33.6 RDW 17.0 H Plt Count 76 L Seg Neutrophils % Not Reportable Sodium Potassium Chloride Carbon Dioxide Anion Gap BUN Creatinine Est GFR ( Amer) Glucose Calcium Magnesium Total Bilirubin AST Alkaline Phosphatase Total Protein Albumin Lipase 04/07/20 16:06 Troponin I < 0.012 NT-Pro-B Natriuret Pep 3300 H Impressions: Head CT 04/07/20 15:59 IMPRESSION: No acute intracranial hemorrhage or acute territorial infarct. EVIDENCE OF ACUTE STROKE: NO. Abdomen/Pelvis CT 04/07/20 16:27 IMPRESSION: 1. Acute on chronic pancreatitis. Interval development of peripancreatic fluid collections, may represent pseudocysts. Followup CT or MRI in 3 months recommended to re-evaluate and exclude cystic neoplasm. 2. Small ascites. Anasarca. 3. Status post cholecystectomy. Mild dilation of the common bile duct. 4. Status post left nephrectomy. 5. Bilateral pleural effusions, right more than left. Venous Doppler Study 04/07/20 18:37 IMPRESSION: No evidence of left upper extremity DVT. The cephalic and basilic veins were not seen. These are considered superficial veins. Abdomen MRI 04/13/20 00:00 IMPRESSION: Improving appearance of acute on chronic pancreatitis with diminished volume of several presumed pancreatic pseudocysts as detailed above. Persistent pleural effusions. Otherwise stable chronic and incidental findings as detailed above. Chest CT 04/14/20 00:00 IMPRESSION: Large right and moderate left pleural effusions. Superimposed infectious process at the lung bases is not excluded. Chest X-Ray 04/14/20 00:00 IMPRESSION: Nasogastric tube in the stomach. KUB X-Ray 04/15/20 00:00 IMPRESSION: Nonobstructive bowel gas pattern. Assessment and Plan - Diagnosis (1) Chronic alcoholic pancreatitis Is this a current diagnosis for this admission?: Yes Plan: Early signs of improvement. Decreased abdominal discomfort; though bilious vomiting overnight. Lipase overall trending down 1382-> 530 Unclear etiology of pancreatitis, per patient and family pancreatitis started 03/2019 she has had recurrences since then. She does have a history of alcohol dependence and pancreatic cancer. -Triglycerides 95 -Unlikely AIP, checked IgG4; 1 General surgery consulted for severe abdominal pain, very complicated abdomen surgical history. Determined not to have an acute surgical need at this time. MRCP (04/07/20) showed pancreatic duct stone with duct dilatation, multiple enlarging peripancreatic pseudocysts much larger than previous imaging at [facility], acute on chronic pancreatitis Repeat ABD MRI (04/13/20) shows improved appearance of acute on chronic pancreatitis with diminished volume of several presumed pancreatic pseudocysts. Persistent pleural effusion noted. Otherwise stable chronic and incidental findings. Previous provider has had extensive conversation with patient's GI team at [facility]. [facility] GI stated patient's problems are likely too complicated to be definitively managed at their facility but they may consider transfer there to have the pancreatic pseudocyst drained given the have increased substantially in size from her imaging done at the patient's previous admission at [facility]. Ultimately, patient will need definitive treatment at [facility] or [facility] per GI. Previous provider also spoke with Dr. Estrella at [facility]; has been accepted to their facility but unfortunately no beds are available at this time. Continues to be on wait list. Provider then spoke with [facility] transfer center; they request daily updates prior to making formal bed offer. Blood cultures have no growth at 24 hours NG tube due to development of bilious vomiting; 750 mL's dark green bile over the last 24 hours. Resolution of abdominal discomfort, nausea and vomiting per patient. Continue n.p.o. status. Patient's last oral intake 6 6 days ago; although this was minimal. She is essentially been in n.p.o. status x8 days. We will start TPN. Generous IV fluids. Antiemetics and analgesics as needed. Have started empiric antibiotics w/ Cefepime and Lipase Follow-up chemistries. (2) Pleural effusion Is this a current diagnosis for this admission?: Yes Plan: Chest x-ray demonstrated complete opacification of the visualized right lung. Patient with a known partial right upper lobectomy. Currently maintaining oxygen saturations on room air without increased work of breathing or other signs of distress. Follow-up CT chest demonstrated large right and moderate left pleural effusion superimposed on possible infectious process at the lung bases. Discussed with RA; due to the patient's complicated medical history and comorbidities, would prefer the interventional list due to the necessary thoracentesis (possible chest tube placement given the volume of the pleural effusion). Should the patient's respiratory status worsen, they will be available to do this is a stat procedure this weekend, otherwise, she will be scheduled for Thursday. Due to the moderate groundglass opacity noted to the right lung base, will start the patient on empiric antibiotics as she did experience multiple episodes of emesis overnight. Continue cefepime and metronidazole. (3) Aspiration pneumonia Qualifiers: Aspiration pneumonia type: due to gastric secretions Laterality: right Lung location: lower lobe of lung Qualified Code(s): J69.0 - Pneumonitis due to inhalation of food and vomit Is this a current diagnosis for this admission?: Yes Plan: Patient remains afebrile, with normal WBCs, and maintaining oxygen saturations on room air. Lung sounds are diminished throughout. CT chest showed moderate groundglass opacity noted to the right lung base Blood cultures negative at 24 hours As opacities were noted in the morning following several episodes of emesis, leora l start the patient on empiric antibiotics Continue cefepime and metronidazole. Day #2. (4) Acute on chronic renal insufficiency Is this a current diagnosis for this admission?: Yes Plan: Acute on chronic renal insufficiency; Cr 1.26-> 1.18-> 1.74-> 1.83-> 1.79 History of RCC status post single nephrectomy Avoid IV contrast if possible Continue gentle IVF. Avoid nephrotoxic medications as able. Follow-up chemistry. Strict I&O's. (5) Chronic renal insufficiency, stage III (moderate) Is this a current diagnosis for this admission?: Yes Plan: As above. (6) Hypertension Is this a current diagnosis for this admission?: No Plan: Blood pressures continue to be slightly elevated. Provide for appropriate pain management. IV hydralazine as needed for blood pressure control. (7) Hypoalbuminemia Is this a current diagnosis for this admission?: Yes Plan: Slightly improved; albumin 2.1. Continues to be in n.p.o. status. Patient on day #8 of admission Discussed w/ patient today; agreeable to short-term TPN (8) Pancytopenia Is this a current diagnosis for this admission?: Yes Plan: Overall improved. WBCs 9.6, hemoglobin 13.1/HCT 39, lately at 112. Continue to monitor. (9) Anemia of chronic disease Is this a current diagnosis for this admission?: Yes (10) Hypokalemia due to excessive gastrointestinal loss of potassium Is this a current diagnosis for this admission?: Yes Plan: Secondary to emesis followed by NG tube to low wall suction. Receive 40 M EQ's via TPN each 24 hours. Monitor Chemistries - Time Time Spent with patient: 35 or more minutes Medications reviewed and adjusted accordingly: Yes Anticipated Discharge Disposition: Tertiary Anticipated Discharge Timeframe: when bed available
--- NOTE | 2020-04-16 02:48 | EKG REPORT ---
SEVERITY:- ABNORMAL ECG - SINUS TACHYCARDIA BORDERLINE LEFT AXIS DEVIATION CONSIDER INFERIOR INFARCT NONSPECIFIC T ABNORMALITIES, ANT-LAT LEADS : Confirmed by: Leonard Linares MD 16-Apr-2020 02:47:03
[2020-04-16] MEDS: METRONIDAZOLE 500 MG/NS RTU 500 MG/100 ML RTUPB IV SCH ×4 (06:53→20:29)
[2020-04-16] MEDS: INSULIN REG, HUMAN 100 UNIT/ML 3 ML VIAL (PYX) SUBCUT SCH ×3 (06:55→18:25)
[2020-04-16] MEDS: PANTOPRAZOLE SODIUM 40 MG PACKET.DR NG SCH ×2 (06:56→17:15)
[2020-04-16] MEDS: HEPARIN SOD (PORCINE) 5,000 UNIT/ML 1 ML VIAL SUBCUT SCH ×3 (06:56→21:12)
[2020-04-16] MEDS: LIPASE/PROTEASE/AMYLASE 1 CAP CAPSULE.DR PO SCH ×3 (09:20→17:00)
[2020-04-16] MEDS: MAGNESIUM OXIDE 400 MG TABLET NG SCH ×2 (09:47→17:19)
[2020-04-16] MEDS: HYDRALAZINE HCL 25 MG TABLET NG SCH ×2 (09:55→21:11)
[2020-04-16] MEDS: DULOXETINE HCL 30 MG CAPSULE.DR PEG SCH (09:55)
[2020-04-16] MEDS ORDERED: FAT EMULSIONS 250 ML IV SCH (10:00)
--- NOTE | 2020-04-16 12:16 | RADIOLOGY REPORT (SQ) ---
EXAM DESCRIPTION: CHEST SINGLE VIEW IMAGES COMPLETED DATE/TIME: 04/16/2020 11:46 am REASON FOR STUDY: central line COMPARISON: None. EXAM PARAMETERS: NUMBER OF VIEWS: One view. TECHNIQUE: Single frontal radiographic view of the chest acquired. RADIATION DOSE: NA LIMITATIONS: None. FINDINGS: LUNGS AND PLEURA: Moderate to large right-sided pleural effusion with associated consolida tion. Small left effusion. No pneumothorax. MEDIASTINUM AND HILAR STRUCTURES: No masses. Contour normal. HEART AND VASCULAR STRUCTURES: Enlarged, obscured. BONES: No acute findings. HARDWARE: Right approach central venous line with catheter tip at right atrium. Left internal jugula r central venous catheter with tip at innominate/ SVC junction. OTHER: No other significant finding. IMPRESSION: Moderate to large right-sided pleural effusion with associated consolidation, likely ate lectasis. Small left effusion. New left internal jugular central venous catheter tip at innominate/SVC junction. No pneumothorax. TECHNICAL DOCUMENTATION: JOB ID: [id number] 2010 [employer]- All Rights Reserved Reading location - IP/workstation name: [email or web address]
--- NOTE | 2020-04-16 13:03 | Operative Report ---
Operative Report DATE OF SURGERY: 04/16/20 PREOPERATIVE DIAGNOSIS: 1. Recurrent pancreatitis. 2. Right pleural effusion with atelectasis POSTOPERATIVE DIAGNOSIS: Same with stenotic right internal jugular vein OPERATION: 1. Focused ultrasound of the neck. 2. Ultrasound directed insertion of triple-lumen central venous access catheter left neck. 3. Interpretation of post procedure radiograph SURGEON: PAIGE RETANA ANESTHESIA: Local TISSUE REMOVED OR ALTERED: None COMPLICATIONS: None ESTIMATED BLOOD LOSS: Movable INTRAOPERATIVE FINDINGS: See below PROCEDURE: Patient was placed in Trendelenburg position. Neck was scanned with a variable frequency linear transducer at bedside. Findings were significant for an occluded versus stenotic, non-patent, right internal jugular vein. On the left side the IJ was good caliber and patent. Markings were made on the skin identifying appropriate landmarks The left neck, and right subclavian area as well as a left subclavian areas were all prepped and draped in a sterile fashion. Surgical plan surgical timeout conducted. Skin was anesthetized in the low left neck. Initial attempts to cannulate the left internal jugular vein were unsuccessful. I then moved to the right subclavian area and attempt to access the right subclavian vein but was unsuccessful. Therefore this approach was aborted. I reapproached the left internal jugular vein, placed the patient in steeper Trendelenburg position, and rotated her neck to the right. This time I was able successfully access the left internal jugular vein, advance the wire, dilated up the tract, and threaded the triple-lumen central venous access catheter up to approximately 16 cm from the tip. The catheter would not advance any further. There was excellent aspiration blood flow through all 3 lm. Catheter was secured at 3 sites with 2-0 silk suture Biopatch and sterile dressing applied. Portable upright chest x-ray performed immediately after insertion confirmed the tip of the catheter to be at the superior vena cava, innominate vein junction. There was no apparent pneumothorax in either right or left chest. The results of the x-ray were shared with the nursing staff. Catheter may be used. Surgery will sign off; reconsult if clinically indicated.
[2020-04-16] MEDS ORDERED: MIDAZOLAM 2 MG/2 ML INJ ONE (13:38)
[2020-04-16] MEDS ORDERED: FENTANYL CITRATE INJ/PF 100 MCG/2 ML AMPUL ONE (13:38)
--- NOTE | 2020-04-16 13:47 | RADIOLOGY REPORT (SQ) ---
EXAM DESCRIPTION: CHEST SINGLE VIEW IMAGES COMPLETED DATE/TIME: 04/16/2020 12:59 pm REASON FOR STUDY: Check NG Tube Placement COMPARISON: 04/16/2020 EXAM PARAMETERS: NUMBER OF VIEWS: One view. TECHNIQUE: Single frontal radiographic view of the chest acquired. RADIATION DOSE: NA LIMITATIONS: Majority of the chest is excluded by collimation. FINDINGS: LUNGS AND PLEURA: Persistent moderate right-sided subpulmonic effusions. Small left effus ion. Enlarged cardiac silhouette. MEDIASTINUM AND HILAR STRUCTURES: Partially obscured. HEART AND VASCULAR STRUCTURES: Stable. BONES: No acute findings. HARDWARE: Nasoenteric tube tip overlies gastric body. Multiple surgical clips and chhaya overlie ab domen OTHER: No other significant finding. IMPRESSION: Nasoenteric tube tip overlies gastric body. TECHNICAL DOCUMENTATION: JOB ID: [id number] 2010 [employer]- All Rights Reserved Reading location - IP/workstation name: [email or web address]
[2020-04-16 14:42] LABS: FLUID TYPE PLEURAL
[2020-04-16 14:46] LABS: FLUID APPEARANCE CLEAR; FLUID COLOR YELLOW; FLUID VISCOSITY LIQUID
[2020-04-16 14:47] LABS: FLUID SOURCE LUNG
[2020-04-16 14:52] LABS: HEMATOCRIT 34.1 % (36.0-47.0); HEMOGLOBIN 11.4 g/dL (12.0-15.5); MEAN CORPUSCULAR HEMOGLOBIN 29.1 pg (27.0-33.4); MEAN CORPUSCULAR HGB CONC 33.5 g/dL (32.0-36.0); MEAN CORPUSCULAR VOLUME 87 fl (80-97); RED BLOOD COUNT 3.93 10^6/uL (3.72-5.28); RED CELL DISTRIBUTION WIDTH 17.3 % (11.5-14.0); WHITE BLOOD COUNT 5.6 10^3/uL (4.0-10.5)
--- NOTE | 2020-04-16 14:54 | RADIOLOGY REPORT (SQ) ---
EXAM DESCRIPTION: CT THORACENTESIS W/CHEST TUBE IMAGES COMPLETED DATE/TIME: 04/16/2020 2:02 pm REASON FOR STUDY: LARGE RIGHT PLEURAL EFFUSION COMPARISON: Same day radiograph, prior CT FLUORO TIME: 1.4 seconds 3 images saved to PACS. LIMITATIONS: None. PROCEDURE: After obtaining informed consent, the patient was brought to the CT suite and was placed supine on the CT gurney. The patient was prepped and draped in the usual sterile fashion . Axial ursula ges were obtained for targeting of theright-sided pleural effusion. An appropriate access site was se lected. IV conscious sedation was administered and physician direction by the registered nurse using 50 micrograms of fentanyl. Physiologic monitoring was provided before, during, and after sedation. T ankush total sedation time was 30 minutes. Documentation face to face time, the performing proceduralist, spent monitoring the patient: 30minute s. 10 cc of 1% lidocaine was utilized for local sedation. Under limited CT fluoroscopic guidance an 18 gauge introducer needle was not and into the right pleural space. After fluid returned a 035 wire wa s advanced into the thoracic cavity. The needle was removed and the tract dilated. A 10 Hungarian pigt ail catheter was advanced over the wire. The wire and inner stiffener were removed and the pigtail f ormed in a standard fashion. The catheter was placed to a Pleur-Evac device. The catheter was secured to the skin and a sterile dressing was applied. IMPRESSION: Placement of a right-sided 10 Hungarian pigtail chest tube utilizing CT guidance as detaile d above. COMMENT: Patient medication list reviewed:Yes- Quality ID# 130:Eligible professional attests to docu menting in the medical record they obtained, updated, or reviewed the patient's current medications. Quality ID #76: The patient was prepped and draped using maximum sterile barrier technique including cap, mask, sterile gown, sterile gloves, a large sterile sheet, hand hygiene, and 2% Chlorhexidine fo r cutaneous antisepsis. When ultrasound is used, sterile ultrasound techniques are followed requiring sterile gel and sterile probes. Quality ID 145: Final reports for procedures using fluoroscopy that document radiation exposure lois isatu, or exposure time and number of fluorographic images (if radiation exposure indices are not avail able) Quality ID# 436: Final reports with documentation of one or more dose reduction techniques (e.g., Aut omated exposure control, adjustment of the mA and/or kV according to patient size, use of iterative r econstruction technique) TECHNICAL DOCUMENTATION: JOB ID: [id number] 2010 [email or web address]- All Rights Reserved Reading location - IP/workstation name: [email or web address]
[2020-04-16 14:55] LABS: PLATELET COUNT 89 10^3/uL (150-450)
[2020-04-16 14:59] LABS: INTERNATIONAL RATION (INR) 1.18; PROTHROMBIN TIME 15.2 SEC (11.4-15.4)
[2020-04-16 15:10] LABS: ALBUMIN 2.2 g/dL (3.5-5.0); ALKALINE PHOSPHATASE 197 U/L (38-126); ANION GAP 8 (5-19); ASPARTATE AMINO TRANSFERASE 16 U/L (14-36); BILIRUBIN,DIRECT 0.4 mg/dL (0.0-0.4); BILIRUBIN,TOTAL 0.6 mg/dL (0.2-1.3); BLOOD UREA NITROGEN 30 mg/dL (7-20); CARBON DIOXIDE 23 mmol/L (22-30); CHLORIDE 114 mmol/L (98-107); GLUCOSE 208 mg/dL (75-110); PHOSPHORUS 2.5 mg/dL (2.5-4.5); TOTAL PROTEIN 4.7 g/dL (6.3-8.2)
[2020-04-16 15:18] LABS: PREALBUMIN 6.8 mg/dL (17.6-36.0)
[2020-04-16 15:22] LABS: POTASSIUM 2.9 mmol/L (3.6-5.0)
[2020-04-16] MEDS: CEFEPIME HCL 2 GM in DEXTROSE 5%-WATER 50 ML IV SCH ×2 (15:45→21:12)
[2020-04-16] MEDS ORDERED: METOPROLOL TARTRATE PF/INJ 5 MG/5 ML SDV IV ONE (18:00)
[2020-04-16] MEDS: POTASSI CL 20 MEQ/50 ML RIDER 20 MEQ/50 ML RTUPB IV SCH ×2 (18:26→20:29)
[2020-04-16] MEDS: AMINO ACIDS 5 %/DEXTROSE 20 % 1,000 ML IV PRN (19:05)
--- NOTE | 2020-04-16 19:42 | PDOC TRANSFER SUMMARY ---
General Admission Date/PCP: 04/07/20 19:13 LISSETTE CROCKETT NP Admission Date: 04/07/20 Transfer Date: 04/16/20 Accepting Facility: [facility] Accepting Physician: Dr. Farrah Riddle Resuscitation Status: Full Code - Transfer Diagnosis (1) Chronic alcoholic pancreatitis Is this a current diagnosis for this admission?: Yes (2) Pleural effusion Is this a current diagnosis for this admission?: Yes (3) Aspiration pneumonia Is this a current diagnosis for this admission?: Yes (4) Acute on chronic renal insufficiency Is this a current diagnosis for this admission?: Yes (5) Chronic renal insufficiency, stage III (moderate) Is this a current diagnosis for this admission?: Yes (6) Hypertension Is this a current diagnosis for this admission?: No (7) Hypoalbuminemia Is this a current diagnosis for this admission?: Yes (8) Pancytopenia Is this a current diagnosis for this admission?: Yes (9) Anemia of chronic disease Is this a current diagnosis for this admission?: Yes (10) Hypokalemia due to excessive gastrointestinal loss of potassium Is this a current diagnosis for this admission?: Yes - Transfer Medications Home Medications: Duloxetine HCl [Cymbalta 30 mg Capsule.] 30 mg PO DAILY 04/08/20 Hydralazine HCl [Apresoline 25 mg Tablet] 25 mg PO Q12 04/08/20 Lipase/Protease/Amylase [Arleen Fontaine 3,000 Units Capsule] 1 cap PO MEALS 04/08/20 Oxycodone HCl/Acetaminophen [Endocet 5-325 Tablet] 1 each PO Q6HP PRN MDD FILLED 02/18/20 FOR 5DAYS 04/08/20 Transfer Medications: Current Medications Acetaminophen (Tylenol 325 Mg Tablet) 650 mg NG Q4HP PRN PRN Reason: pain or fever Stop: 05/07/20 19:03 Last Admin: 04/15/20 17:41 Dose: 650 mg Documented by: Albuterol/Ipratropium (Duoneb 3 Ml Ampul) 3 ml NEB RTQ2HP PRN PRN Reason: SHORTNESS OF BREATH Stop: 05/07/20 19:03 Lipase/Protease/Amylase (Pancreaze-10 Capsule.) 1 cap PO MEALS CEE Stop: 05/09/20 07:59 Last Admin: 04/16/20 17:00 Dose: Not Given Documented by: Dextrose (Dextrose Inj 50% Syringe (25 Gm/50 Ml)) 12.5 gm IV PRN PRN; Protocol PRN Reason: FOR BG 50-69 IN ALERT PATIENT Stop: 05/15/20 10:02 Dextrose (Dextrose Inj 50% Syringe (25 Gm/50 Ml)) 25 gm IV PRN PRN; Protocol PRN Reason: PER PROTOCOL Stop: 05/15/20 10:02 Duloxetine HCl (Cymbalta 30 Mg Capsule.Dr) 30 mg PEG DAILY [facility] Stop: 05/09/20 09:59 Last Admin: 04/16/20 09:55 Dose: 30 mg Documented by: Glucagon (Glucagen Inj 1 Mg Vial) 1 mg IM PRN PRN; Protocol PRN Reason: Evaluate for BG < 70 Stop: 05/15/20 10:02 Glucose (Glutose 40% Gel 15 Gm Tube) 15 gm PO PRN PRN; Protocol PRN Reason: FOR BG 50-69 IN ALERT PATIENT Stop: 05/15/20 10:02 Glucose (Glutose 40% Gel 15 Gm Tube) 30 gm PO PRN PRN; Protocol PRN Reason: FOR BG < 50 IN ALERT PATIENT Stop: 05/15/20 10:02 Heparin Sodium (Porcine) (Heparin Inj 5,000 Units/Ml 1 Ml Vial) 5,000 unit SUBCUT Q8 [facility] Stop: 05/08/20 05:59 Last Admin: 04/16/20 16:54 Dose: Not Given Documented by: Heparin Sodium (Porcine) (Heparin Flush 10 Unit/Ml 5 Ml Disp.Syrg) 50 unit IV Q8 [facility] Stop: 05/09/20 05:59 Last Admin: 04/16/20 15:45 Dose: 50 unit Documented by: Heparin Sodium (Porcine) (Heparin Flush 10 Unit/Ml 5 Ml Disp.Syrg) 50 unit IV .AFTER EACH USE PRN PRN Reason: AFTER EACH INTERMITTENT USE Stop: 05/08/20 22:59 Last Admin: 04/12/20 15:10 Dose: 50 unit Documented by: Hydralazine HCl (Apresoline Inj/Pf 20 Mg/1 Ml Sdv) 10 mg IV Q4HP PRN PRN Reason: GIVE FOR SBP > 170 Stop: 05/11/20 15:34 Last Admin: 04/14/20 00:35 Dose: 10 mg Documented by: Hydralazine HCl (Apresoline 25 Mg Tablet) 25 mg NG Q12 [facility] Stop: 05/11/20 21:59 Last Admin: 04/16/20 09:55 Dose: 25 mg Documented by: Cefepime HCl 2 gm/ Dextrose 50 mls @ 100 mls/hr IV Q12 [facility] Stop: 04/22/20 09:59 Last Admin: 04/16/20 15:45 Dose: 100 mls/hr Documented by: Sodium Chloride (Nacl 0.9% 1000 Ml Iv Soln) 1,000 mls @ 150 mls/hr IV CONTINUOUS PRN PRN Reason: THIS MED IS NOT "PRN" Stop: 05/14/20 15:23 Last Admin: 04/16/20 16:59 Dose: 150 mls/hr Documented by: Fat Emulsion Intravenous (Intralipid 20% Inj 50 Gm/250 Ml Bag) 250 mls @ 50 mls/hr IV MOTH@1000 CEE; Protocol Stop: 05/16/20 09:59 Last Admin: 04/16/20 16:41 Dose: 50 mls/hr Documented by: Dextrose (D10w 1000 Ml Iv Soln) 1,000 mls @ 0 mls/hr IV .CONTINUOUS PRN PRN Reason: THIS MED IS NOT "PRN" Stop: 05/15/20 10:02 Amino Acids/Dextrose (Clinimix 5%-20% Tpn Solution 1000 Ml Bag) 1,000 mls @ 45 mls/hr IV .CONTINUOUS PRN; Protocol PRN Reason: THIS MED IS NOT "PRN" Stop: 05/15/20 17:59 Last Admin: 04/15/20 18:42 Dose: 45 mls/hr Documented by: Metronidazole (Flagyl Rtu 500 Mg/Ns 100ml Premix) 500 mg in 100 mls @ 100 mls/hr IV Q6A [facility] Stop: 04/21/20 15:59 Last Admin: 04/16/20 16:57 Dose: 100 mls/hr, 100 mls/hr Documented by: Potassium Chloride/Water (Potassium Chloride Earl 20 Meq/50 Ml) 20 meq in 50 mls @ 25 mls/hr IV Q2H [facility] Stop: 04/16/20 22:29 Last Admin: 04/16/20 18:26 Dose: 25 mls/hr, 25 mls/hr Documented by: Insulin Human Regular (Humulin R (Pyxis) Insulin 100 Unit/Ml 3ml) 0 unit SUBCUT Q6 [facility]; Protocol Stop: 05/15/20 11:59 Last Admin: 04/16/20 18:25 Dose: 4 unit Documented by: Magnesium Oxide (Mag-Ox 400 Mg Tablet) 400 mg NG BID CEE Stop: 05/11/20 09:59 Last Admin: 04/16/20 17:19 Dose: 400 mg Documented by: Pantoprazole Sodium (Protonix [address] Packet) 40 mg NG BID@0600,1700 [facility] Stop: 05/11/20 16:59 Last Admin: 04/16/20 17:15 Dose: 40 mg Documented by: Pharmacy Profile Note (Medication Communication Order) 1 each MC .NOTICE NR Stop: 05/14/20 06:44 Promethazine HCl (Phenergan Inj 25 Mg/1 Ml Vial) 25 mg IV Q4HP PRN PRN Reason: UNRESOLVED NAUSEA/VOMITING Stop: 05/14/20 06:36 Last Admin: 04/14/20 07:02 Dose: 25 mg Documented by: - Allergies Allergies/Adverse Reactions: sulfamethoxazole [From Bactrim] Allergy (Verified 12/29/19 11:47) trimethoprim [From Bactrim] Allergy (Verified 12/29/19 11:47) aspirin [Aspirin] Adverse Reaction (Verified 12/29/19 11:47) - Diet/Activity Discharge Diet: Other (Comments) - Ice chips; npo Discharge Activity: Bedrest Hospital Course Hospital Course: Per H&P by Dr. Cohen: JIHAN MORA is a 64 year old female with a very complicated past medical history significant for RCC status post unilateral nephrectomy, lung cancer status post chemoradiation and lobectomy, accidental bowel perforation during surgery with partial bowel resection, chronic recurrent pancreatitis, ischemic stroke, [place], CKD, CHF who presents with a 1 day history of severe acute abdominal pain consistent with previous episodes of acute on chronic pancreatitis however patient states this is much worse pain than she has ever had in the past. Orlando mahmood was seen in the ED on 04/04 and she had a VQ scan that was negative for PE. She does have significant left upper extremity and periorbital edema on exam and this may have been the reason they tried to rule out PE at the time. It is difficult to give her IV contrast safely as she only has 1 kidney and already has CKD in her single kidney. Patient has been seen at [facility] and [facility] for previous surgical complications and pancreatitis. Most recently, last month she was admitted to [facility] and treated for acute on chronic pancreatitis where she subsequently developed pneumonia as well. She follows with a GI physician Dr. Mcintyre at [facility] but has not been to see him in some time because she is frequently admitted to one hospital or another. Her lipase here is approximately 1300, BNP 3300, CRP 62, troponin negative, triglycerides 95, lactate 0.8. LFTs unremarkable. She has mild hyponatremia and hypokalemia. Of note, patient is wearing a fentanyl patch on her abdomen on admission. also states that [facility] she had an ERCP with endoscopic ultrasound which showed a polyp in her stomach which they removed and also they were performed a needle aspiration of peripancreatic fluid from a pseudocyst. On CT scan on admission here it seems that she has developed this peripancreatic fluid and pseudocyst again and she also has some abdominal wall inflammation and ascites. She has no fevers/chills but she has been having significant nausea/vomiting. She started on IV fluids, general surgery was consulted, and GI was consulted although they may not be available immediately. Course: (1) Chronic alcoholic pancreatitis Acute on chronic pancreatitis. Early signs of improvement. Decreased abdominal discomfort; though with 450 bilious output to suction overnight. Lipase overall trending down 1382-> 530 LFTs w/ slight improvement. Unclear etiology of pancreatitis, per patient and family pancreatitis started 03/2019 she has had recurrences since then. She does have a history of alcohol dependence and pancreatic cancer. -Triglycerides 95 -Unlikely AIP, checked IgG4; 1 General surgery consulted for severe abdominal pain, very complicated abdomen surgical history. Determined not to have an acute surgical need at this time. MRCP (04/07/20) showed pancreatic duct stone with duct dilatation, multiple enlarging peripancreatic pseudocysts much larger than previous imaging at [facility], acute on chronic pancreatitis Repeat ABD MRI (04/13/20) shows improved appearance of acute on chronic pancreatitis with diminished volume of several presumed pancreatic pseudocysts. Persistent pleural effusion noted. Otherwise stable chronic and incidental findings. Blood cultures have no growth at 48 hours NG tube due to development of bilious vomiting; currently clamped x4 hours. Patient tolerating well. Continue n.p.o. status w/ exception of ice chips. Continue TPN. Generous IV fluids. Antiemetics and analgesics as needed. Continue empiric antibiotics w/ Cefepime and metronidazole. Day #3. Patient has been graciously accepted by Dr. Farrah Riddle at [facility] for continued care. (2) Pleural effusion Chest x-ray demonstrated complete opacification of the visualized right lung. Patient with a known partial right upper lobectomy. Currently maintaining oxygen saturations on room air without increased work of breathing or other signs of distress. Follow-up CT chest demonstrated large right and moderate left pleural effusion superimposed on possible infectious process at the lung bases. 10F pigtail drain to gravity; ~1550 serous fluid today. Follow up imaging shows slight improvement of RML aeration. Small consolidation; likely atelectasis. (3) Aspiration pneumonia Patient remains afebrile, with normal WBCs, and maintaining oxygen saturations on room air. Lung sounds are diminished throughout. CT chest showed moderate groundglass opacity noted to the right lung base Blood cultures negative at 48 hours As opacities were noted in the morning following several episodes of emesis, will start the patient on empiric antibiotics Continue cefepime and metronidazole. Day #3. (4) Acute on chronic renal insufficiency Acute on chronic renal insufficiency; Cr 1.26-> 1.18-> 1.74-> 1.83-> 1.79-> 1.83 Baseline Cr 1.24 Urine output decreased; 400ml/24 hrs History of RCC status post single nephrectomy Continue gentle IVF. Avoid nephrotoxic medications as able. Follow-up chemistry. Strict I&O's. (5) Chronic renal insufficiency, stage III (moderate) As above. (6) Hypertension Blood pressures continue to be slightly elevated; though overall acceptable. Provide for appropriate pain management. IV hydralazine as needed for blood pressure control. (7) Hypoalbuminemia Slightly improved; albumin 2.2, prealbumin 2.2 Continues to be in n.p.o. status. Patient on day #9 of admission Has been receiving TPN x24 hrs. (8) Pancytopenia Overall improved. WBCs 5.6, hemoglobin 11.4/HCT 34.1, PLT 89. Continue to monitor. (9) Anemia of chronic disease (10) Hypokalemia due to excessive gastrointestinal loss of potassium Secondary to emesis followed by NG tube to low wall suction. Receive 40 M EQ's via TPN each 24 hours. Additional K-Earl's today. Monitor Chemistries Physical Exam Vital Signs: Temp Pulse Resp BP Pulse Ox 97.7 F 127 H 19 132/92 H 96 04/16/20 17:08 04/16/20 17:08 04/16/20 17:08 04/16/20 18:53 04/16/20 17:08 Intake & Output 04/15/20 04/16/20 04/17/20 06:59 06:59 06:59 Intake Total 400 1140 50 Output Total 620 850 Balance -220 290 50 Weight 69.7 kg 69.7 kg 69.7 kg General appearance: PRESENT: no acute distress, cooperative, well-developed, well-nourished, other - Chronically ill-appearing; +1 to +2 pitting edema all extremities Head exam: PRESENT: atraumatic, normocephalic Eye exam: PRESENT: conjunctiva pink, EOMI, PERRLA. ABSENT: scleral icterus Mouth exam: PRESENT: moist, tongue midline Teeth exam: PRESENT: poor dentation Respiratory exam: PRESENT: clear to auscultation marianna, decreased breath sounds - abscent Rt side; slight improvement following chest tube placement, symmetrical, unlabored, other - room air. ABSENT: rales, rhonchi, wheezes Cardiovascular exam: PRESENT: RRR, tachycardia - HR 110-120. ABSENT: diastolic murmur, rubs, systolic murmur Pulses: PRESENT: +1 pedal pulses bilateral Vascular exam: PRESENT: normal capillary refill GI/Abdominal exam: PRESENT: hypoactive bowel sounds, soft, other - NG tube; clamped at present. ABSENT: distended, guarding, mass, organolmegaly, rebound, tenderness Rectal exam: PRESENT: deferred Gentrourinary exam: PRESENT: indwelling catheter Extremities exam: PRESENT: full ROM, +1 edema - generalized; improved. ABSENT: calf tenderness, clubbing, pedal edema Neurological exam: PRESENT: alert, awake, oriented to person, oriented to place, oriented to time, oriented to situation, CN II-XII grossly intact, other - fatigued. ABSENT: motor sensory deficit Psychiatric exam: PRESENT: appropriate affect, normal mood. ABSENT: homicidal ideation, suicidal ideation Skin exam: PRESENT: dry, intact, warm. ABSENT: cyanosis, rash Results Laboratory Results: 04/16/20 14:30 04/16/20 14:30 04/16/20 04/16/20 04/16/20 13:50 14:30 14:30 WBC 5.6 RBC 3.93 Hgb 11.4 L Hct 34.1 L MCV 87 MCH 29.1 MCHC 33.5 RDW 17.3 H Plt Count 89 L Sodium 144.5 Potassium 2.9 L* Chloride 114 H Carbon Dioxide 23 Anion Gap 8 BUN 30 H Creatinine 1.83 H Est GFR ( Amer) 34 L Glucose 208 H Calcium 8.0 L Phosphorus 2.5 Magnesium 1.7 Total Bilirubin 0.6 AST 16 Alkaline Phosphatase 197 H Total Protein 4.7 L Albumin 2.2 L Prealbumin 6.8 L Triglycerides Fluid Type PLEURAL Fluid Source LUNG Fluid Color YELLOW Fluid Appearance CLEAR Fluid Viscosity LIQUID Fluid WBC 2 Fluid RBC 671 04/16/20 14:30 WBC RBC Hgb Hct MCV MCH MCHC RDW Plt Count Sodium Potassium Chloride Carbon Dioxide Anion Gap BUN Creatinine Est GFR ( Amer) Glucose Calcium Phosphorus Magnesium Total Bilirubin AST Alkaline Phosphatase Total Protein Albumin Prealbumin Triglycerides 113 Fluid Type Fluid Source Fluid Color Fluid Appearance Fluid Viscosity Fluid WBC Fluid RBC 04/07/20 16:06 Troponin I < 0.012 NT-Pro-B Natriuret Pep 3300 H Impressions: Head CT 04/07/20 15:59 IMPRESSION: No acute intracranial hemorrhage or acute territorial infarct. EVIDENCE OF ACUTE STROKE: NO. Abdomen/Pelvis CT 04/07/20 16:27 IMPRESSION: 1. Acute on chronic pancreatitis. Interval development of peripanc reatic fluid collections, may represent pseudocysts. Followup CT or MRI in 3 months recommended to re-evaluate and exclude cystic neoplasm. 2. Small ascites. Anasarca. 3. Status post cholecystectomy. Mild dilation of the common bile duct. 4. Status post left nephrectomy. 5. Bilateral pleural effusions, right more than left. Venous Doppler Study 04/07/20 18:37 IMPRESSION: No evidence of left upper extremity DVT. The cephalic and basilic veins were not seen. These are considered superficial veins. Abdomen MRI 04/13/20 00:00 IMPRESSION: Improving appearance of acute on chronic pancreatitis with diminished volume of several presumed pancreatic pseudocysts as detailed above. Persistent pleural effusions. Otherwise stable chronic and incidental findings as detailed above. Chest CT 04/14/20 00:00 IMPRESSION: Large right and moderate left pleural effusions. Superimposed infectious process at the lung bases is not excluded. KUB X-Ray 04/15/20 00:00 IMPRESSION: Nonobstructive bowel gas pattern. Thoracentesis 04/16/20 00:00 IMPRESSION: Placement of a right-sided 10 Kazakh pigtail chest tube utilizing CT guidance as detailed above. Chest X-Ray 04/16/20 10:52 IMPRESSION: Moderate to large right-sided pleural effusion with associated consolidation, likely atelectasis. Small left effusion. New left internal jugular central venous catheter tip at innominate/SVC junction. No pneumothorax. Plan Discharge Plan: Transfer to [facility], under the care of Dr. Farrah Riddle. Time Spent: Greater than 30 Minutes
[2020-04-17] MEDS: INSULIN REG, HUMAN 100 UNIT/ML 3 ML VIAL (PYX) SUBCUT SCH
[2020-04-17] MEDS: METRONIDAZOLE 500 MG/NS RTU 500 MG/100 ML RTUPB IV SCH (03:03)
[2020-04-17 03:14] VITALS: BP 132/85
== END 2020-04-17 03:40 | disposition short-term general hospital (02) | DRG 438 ==
LOC: ER 15:30 → EH 19:13 → 5 20:53
PROVIDERS: ADMIT Internal Medicine; ATTEND Registered Nurse
PROC: 30233N1 Transfusion of Nonautologous Red Blood Cells into Peripheral Vein, Percutaneous Approach (ICD-10-PCS; principal; 2020-04-10)
PROC: 3E0336Z Introduction of Nutritional Substance into Peripheral Vein, Percutaneous Approach (ICD-10-PCS; 2020-04-15)
PROC: 02HV33Z Insertion of Infusion Device into Superior Vena Cava, Percutaneous Approach (ICD-10-PCS; 2020-04-16)
PROC: 0W9930Z Drainage of Right Pleural Cavity with Drainage Device, Percutaneous Approach (ICD-10-PCS; 2020-04-16)
DX: K86.0 Alcohol-induced chronic pancreatitis (principal); J69.0 Pneumonitis due to inhalation of food and vomit; D61.818 Other pancytopenia; N17.9 Acute kidney failure, unspecified; J90 Pleural effusion, not elsewhere classified; I13.0 Hypertensive heart and chronic kidney disease with heart failure and stage 1 through stage 4 chronic kidney disease, or unspecified chronic kidney disease; K86.3 Pseudocyst of pancreas; E87.1 Hypo-osmolality and hyponatremia; E88.09 Other disorders of plasma-protein metabolism, not elsewhere classified; D63.1 Anemia in chronic kidney disease; N18.3 Chronic kidney disease, stage 3 (moderate); I50.9 Heart failure, unspecified; E87.6 Hypokalemia; I25.10 Atherosclerotic heart disease of native coronary artery without angina pectoris; E78.5 Hyperlipidemia, unspecified; K21.9 Gastro-esophageal reflux disease without esophagitis; M10.9 Gout, unspecified; M16.11 Unilateral primary osteoarthritis, right hip; G89.4 Chronic pain syndrome; R00.0 Tachycardia, unspecified; D63.0 Anemia in neoplastic disease; Z79.899 Other long term (current) drug therapy; Z90.5 Acquired absence of kidney; Z85.118 Personal history of other malignant neoplasm of bronchus and lung; Z92.21 Personal history of antineoplastic chemotherapy; Z92.3 Personal history of irradiation; Z86.73 Personal history of transient ischemic attack (TIA), and cerebral infarction without residual deficits; I25.2 Old myocardial infarction; Z85.07 Personal history of malignant neoplasm of pancreas; Z85.528 Personal history of other malignant neoplasm of kidney; Z82.49 Family history of ischemic heart disease and other diseases of the circulatory system; Z88.6 Allergy status to analgesic agent; Z88.1 Allergy status to other antibiotic agents; Z87.891 Personal history of nicotine dependence
CPT/HCPCS: 32551; 36415; 36430; 70450; 71045; 71046; 71250; 74018; 74176; 74181; 80053; 82270; 82945; 82962; 83605; 83615; 83690; 83735; 83880; 84100; 84134; 84155; 84157; 84478; 84484; 85025; 85027; 85610; 85730; 86140; 86850; 86900; 86901; 86920; 87040; 87070; 87075; 87205; 88184; 88185; 89050; 93005; 93010; 93971; 96361; 96374; 96375; 99285; A9270-GY; C1729; C1894; J0360; J0692; J1170; J1642; J1815; J2250; J2270; J2405; J2550; J2765; J3010; J3480; J3490; J7030; J7050; J7060; P9016; P9047

== ENCOUNTER 2020-06-10 07:32 | Emergency (ER) | payer MEDICARE, MEDICAID ==
--- NOTE | 2020-06-10 08:55 | RADIOLOGY REPORT (SQ) ---
EXAM DESCRIPTION: CHEST SINGLE VIEW IMAGES COMPLETED DATE/TIME: 06/10/2020 8:27 am REASON FOR STUDY: congestion COMPARISON: 04/16/2020 EXAM PARAMETERS: NUMBER OF VIEWS: One view. TECHNIQUE: Single frontal radiographic view of the chest acquired. RADIATION DOSE: NA LIMITATIONS: None. FINDINGS: LUNGS AND PLEURA: Large bilateral pleural effusions. Right is however smaller than previo us. Indwelling right chest tube. Compressive atelectasis at the bases. MEDIASTINUM AND HILAR STRUCTURES: No masses. Contour normal. HEART AND VASCULAR STRUCTURES: Heart normal in size. Normal vasculature. BONES: No acute findings. HARDWARE: PICC catheter unchanged. Right side approach. OTHER: No other significant finding. IMPRESSION: Indwelling right chest tube with decrease in the right effusion. Large left effusion. TECHNICAL DOCUMENTATION: JOB ID: [id number] 2010 [employer]- All Rights Reserved Reading location - IP/workstation name: [email or web address]
[2020-06-10] MEDS ORDERED: NORMAL SALINE 250 ML IV ONE (09:38)
[2020-06-10 10:25] LABS: ABSOLUTE LYMPHOCYTES (AUTO) 0.6 10^3/uL (0.5-4.7); ABSOLUTE MONOCYTES (AUTO) 0.3 10^3/uL (0.1-1.4); ABSOLUTE NEUT (AUTO) 2.1 10^3/uL (1.7-8.2); BASOPHILS % (AUTO) 0.4 % (0-2); EOSINOPHILS % (AUTO) 0.2 % (0-6); HEMATOCRIT 25.3 % (36.0-47.0); HEMOGLOBIN 8.6 g/dL (12.0-15.5); LYMPHOCYTES % (AUTO) 20.4 % (13-45); MEAN CORPUSCULAR HEMOGLOBIN 31.3 pg (27.0-33.4); MEAN CORPUSCULAR HGB CONC 33.9 g/dL (32.0-36.0); MEAN CORPUSCULAR VOLUME 92 fl (80-97); MONOCYTES % (AUTO) 9.8 % (3-13); PLATELET COUNT 126 10^3/uL (150-450); RED BLOOD COUNT 2.74 10^6/uL (3.72-5.28); RED CELL DISTRIBUTION WIDTH 18.8 % (11.5-14.0); SEGMENTED NEUTROPHILS % (AUTO) 69.2 % (42-78); TOTAL CELLS COUNTED % (AUTO) 100 %; WHITE BLOOD COUNT 3.1 10^3/uL (4.0-10.5)
[2020-06-10 10:31] LABS: APPEARANCE,URINE CLEAR; BILIRUBIN,URINE NEGATIVE (NEGATIVE); COLOR,URINE YELLOW; GLUCOSE, URINE NEGATIVE (NEGATIVE); KETONES,URINE NEGATIVE (NEGATIVE); LEUKOCYTE ESTERASE,URINE LARGE (NEGATIVE); NITRITE,URINE NEGATIVE (NEGATIVE); PROTEIN,URINE 100 mg/dL (NEGATIVE); URINE SPECIFIC GRAVITY 1.013; UROBILINOGEN,URINE NEGATIVE mg/dL (<2.0)
[2020-06-10 10:40] LABS: ALBUMIN 2.3 g/dL (3.5-5.0); ALKALINE PHOSPHATASE 154 U/L (38-126); ANION GAP 8 (5-19); ASPARTATE AMINO TRANSFERASE 22 U/L (14-36); BILIRUBIN,DIRECT 0.2 mg/dL (0.0-0.4); BILIRUBIN,TOTAL 0.4 mg/dL (0.2-1.3); BLOOD UREA NITROGEN 60 mg/dL (7-20); CALCIUM 8.3 mg/dL (8.4-10.2); CARBON DIOXIDE 30 mmol/L (22-30); CHLORIDE 100 mmol/L (98-107); GLUCOSE 100 mg/dL (75-110); POTASSIUM 3.8 mmol/L (3.6-5.0); TOTAL PROTEIN 4.8 g/dL (6.3-8.2)
[2020-06-10] MEDS ORDERED: HYDROMORPHONE HCL INJ/PF 2 MG/ML AMPULE IV ONE (11:08)
--- NOTE | 2020-06-10 11:32 | RADIOLOGY REPORT (SQ) ---
EXAM DESCRIPTION: INJECT EXISTING/TUBE PLACEMENT IMAGES COMPLETED DATE/TIME: 06/10/2020 10:13 am REASON FOR STUDY: g tube position after 50 ml gastrograffin COMPARISON: None. NUMBER OF VIEWS: One view. TECHNIQUE: Supine radiographic image of the abdomen acquired. LIMITATIONS: None. FINDINGS: BOWEL GAS PATTERN: Normal bowel gas pattern. No dilated loops. CALCIFICATIONS: No suspicious calcifications. SOFT TISSUES: No gross mass or suggestion of organomegaly. HARDWARE: Enterostomy tube present within the small bowel. BONES: No acute fracture. No worrisome bone lesions. OTHER: No other significant finding. IMPRESSION: Normal position of the enterostomy tube. Tip in the small bowel. TECHNICAL DOCUMENTATION: JOB ID: [id number] 2010 [employer]- All Rights Reserved Reading location - IP/workstation name: [email or web address]
[2020-06-10] MEDS ORDERED: CEFTRIAXONE 1 GM/D5W RTU 1 GM/50 ML RTUPB IV ONE (11:33)
--- NOTE | 2020-06-10 11:54 | ER Document Report ---
Entered by RANDY NORIEGA SCRIBE 06/10/20 0800 Acting as scribe for:BLAIR COLON MD ED General - General Chief Complaint: Abdominal Pain Stated Complaint: FEEDING TUBE PROBLEMS Primary Care Provider: LISSETTE CROCKETT NP [Primary Care Provider] - Follow up as needed Information source: Patient, [facility] Records Notes: This 64 year old female patient with history of CHF, HTN, CAD, GERD, [place], CVA, ESRD, lung cancer and pancreatic cancer, presents to the emergency department today with LUQ abdominal pain around her feeding tube. Patient is a poor historian and thinks her feeding tube was placed around April this year. Patient is on 3L of oxygen at home. states her last bowel movement was this morning and patient was discharged from [place] x2 days ago after staying there for 51 days. states when she left [place] there was no fever or chills but had a productive cough. Patient had pneumonia while at [place] and was treated. states her feeding tube is used to administer her crushed meds and had trouble flushing it this morning, but bile is draining normally. TRAVEL OUTSIDE OF THE [place] IN LAST 30 DAYS: No - Related Data Allergies/Adverse Reactions: sulfamethoxazole [From Bactrim] Allergy (Verified 12/29/19 11:47) trimethoprim [From Bactrim] Allergy (Verified 12/29/19 11:47) aspirin [Aspirin] Adverse Reaction (Verified 12/29/19 11:47) Home Medications: Bumetanide, Folic Acid, Metoprolol Tar, Trazodone, Oxycodone Past Medical History - General Information source: Patient, [facility] Records - Social History Smoking Status: Unknown if Ever Smoked Lives with: Family Family History: CAD, Hypertension - Past Medical History Cardiac Medical History: Reports: Hx Congestive Heart Failure, Hx Coronary Artery Disease, Hx Heart Attack - 2013, Hx Hypercholesterolemia, Hx Hypertension Pulmonary Medical History: Reports: Hx Bronchitis, Hx Pneumonia Neurological Medical History: Reports: Hx Cerebrovascular Accident - stroke 2013 while unresponsive following abd surgical complication Renal/ Medical History: Reports: Hx End Stage Renal Disease - kidney cancer, Hx Renal Insufficiency Malignancy Medical History: Reports: Hx Lung Cancer - Right upper partial lobectomy 11/09/2018., Hx Pancreatic Cancer - Mass to tail pancreas, July 2015. Did not light up on PET scan., Hx Renal (Kidney) Cancer - Renal cell carcinoma with left nephrectomy 2007. GI Medical History: Reports: Hx Gastritis, Hx Gastroesophageal Reflux Disease Musculoskeletal Medical History: Reports Hx Arthritis - Right hip DJD., Reports Hx Gout Past Surgical History: Reports: Hx Abdominal Surgery - HERNIA, PERFORATED BOWEL, Hx Cholecystectomy, Hx Herniorrhaphy - Umbilical hernia repair complicated by bowel perforation and peritonitis, Hx Kidney (Renal Surgery) - Left nephrectomy for renal cell carcinoma, Hx Orthopedic Surgery - Right patella surgery for dislocation,, Hx Vascular Surgery - Port placed in right upper arm 01/19/2019. Retinal detachment repair., Other - EGD to evaluate pancreatic mass. Right upper partial lobectomy 11/09/2018. - Immunizations Hx Diphtheria, Pertussis, Tetanus Vaccination: No Hx Pneumococcal Vaccination: 08/03/10 Review of Systems - Review of Systems Constitutional: See HPI. denies: Chills, Fever EENT: No symptoms reported Cardiovascular: No symptoms reported Respiratory: See HPI, Cough, Sputum Gastrointestinal: See HPI, Abdominal pain - LUQ feeding tube, Last bowel movement - this morning, Other - feeding tube problems Genitourinary: No symptoms reported Female Genitourinary: No symptoms reported Musculoskeletal: No symptoms reported Skin: No symptoms reported Hematologic/Lymphatic: No symptoms reported Neurological/Psychological: No symptoms reported -: Yes All other systems reviewed and negative Physical Exam - Vital signs Vitals: Temp Pulse Resp BP Pulse Ox 98.1 F 98 12 145/84 H 100 06/10/20 07:45 06/10/20 07:45 06/10/20 07:45 06/10/20 07:45 06/10/20 07:45 - General General appearance: Alert - HEENT Head: Normocephalic, Atraumatic Eyes: Normal Pupils: PERRL - Respiratory Respiratory status: No respiratory distress Chest status: Nontender Chest palpation: Normal Notes: Diminished breath sounds bilaterally. Chest tube in the right lower chest. - Cardiovascular Rhythm: Regular Heart sounds: Normal auscultation, S1 appreciated, S2 appreciated Murmur: No - Abdominal Distension: No distension Bowel sounds: Normal Tenderness: Tender Notes: GI gastric tube in the LUQ. Dressing is clean. No drainage. - Extremities General upper extremity: Normal inspection. No: Edema General lower extremity: Normal inspection. No: Edema - Neurological Neuro grossly intact: Yes [place] Coma Scale Eye Opening: Spontaneous [place] Coma Scale Verbal: Oriented [place] Coma Scale Motor: Obeys Commands Justin Coma Scale Total: 15 Speech: Normal Sensory: Normal - Psychological Associated symptoms: Normal affect, Normal mood - Skin Skin Temperature: Warm Skin Moisture: Dry Skin Color: Normal Course - Re-evaluation Re-evalutation: 06/10/20 11:38 Patient has received IV fluids as well as IV Dilaudid for her chronic pain. Patient is resting more comfortable at this time. Patient's GI tube is noted to be in proper position and the small with the tip in the small bowel. There is n o extravasation extravasation of Gastrografin on the KUB exam. Patient is noted to have a urinary tract infection on the urinalysis. A urine culture has been sent to the lab patient is to begin on antibiotics first dose IV while in the department prior to discharge. Patient is begun on IV Rocephin and will be discharged home on cephalexin. Urine culture pending. - Vital Signs Vital signs: Temp Pulse Resp BP Pulse Ox 98 F 98 19 137/86 H 100 06/10/20 11:23 06/10/20 07:45 06/10/20 10:59 06/10/20 11:00 06/10/20 10:59 Vital signs stable - Laboratory Result Diagrams: 06/10/20 09:48 06/10/20 09:48 Laboratory results interpreted by me: 06/10/20 06/10/20 06/10/20 09:48 09:48 09:48 WBC 3.1 L RBC 2.74 L Hgb 8.6 L Hct 25.3 L RDW 18.8 H Plt Count 126 L BUN 60 H Creatinine 1.87 H Est GFR ( Amer) 33 L Est GFR (MDRD) Non-Af 27 L Lactic Acid 0.6 L Calcium 8.3 L Alkaline Phosphatase 154 H NT-Pro-B Natriuret Pep Total Protein 4.8 L Albumin 2.3 L Urine Protein Ur Leukocyte Esterase 06/10/20 06/10/20 09:48 09:48 WBC RBC Hgb Hct RDW Plt Count BUN Creatinine Est GFR ( Amer) Est GFR (MDRD) Non-Af Lactic Acid Calcium Alkaline Phosphatase NT-Pro-B Natriuret Pep 78292 H Total Protein Albumin Urine Protein 100 H Ur Leukocyte Esterase LARGE H Abnormal - 24 hr 06/10/20 06/10/20 06/10/20 09:48 09:48 09:48 WBC 3.1 L RBC 2.74 L Hgb 8.6 L Hct 25.3 L RDW 18.8 H Plt Count 126 L BUN 60 H Creatinine 1.87 H Est GFR ( Amer) 33 L Est GFR (MDRD) Non-Af 27 L Lactic Acid 0.6 L Calcium 8.3 L Alkaline Phosphatase 154 H NT-Pro-B Natriuret Pep Total Protein 4.8 L Albumin 2.3 L Urine Protein Ur Leukocyte Esterase 06/10/20 06/10/20 09:48 09:48 WBC RBC Hgb Hct RDW Plt Count BUN Creatinine Est GFR ( Amer) Est GFR (MDRD) Non-Af Lactic Acid Calcium Alkaline Phosphatase NT-Pro-B Natriuret Pep 56429 H Total Protein Albumin Urine Protein 100 H Ur Leukocyte Esterase LARGE H Patient has a low white blood cell count which has been episodic and patient over past years the not be uncommon to have a white blood cell count in three- point range. Patient's hemoglobin of 8 today is again variable in patients over the years a time where she has been lower and then 8 in the past. Patient has a potassium of they are 3.1 urinary tract infection with large leukocyte esterase and patient has a creatinine of 1.87. Again these numbers are not different than prior evaluations of your kidney function. And appears to be an acute urinary tract infection. 06/10/20 11:45 Patient has a known history of pancreatitis pancreatic mass chronic renal failure chronic anemia pancytopenia congestive heart failure malnourishment. - Diagnostic Test Radiology reviewed: Image reviewed, Reports reviewed Radiology results interpreted by me: 06/10/20 11:41 Chest X-Ray 06/10/20 08:00 IMPRESSION: Indwelling right chest tube with decrease in the right effusion. Large left effusion. Tube Placement 06/10/20 09:40 IMPRESSION: Normal position of the enterostomy tube. Tip in the small bowel. Patient has an indwelling chest tube on the right with decrease in right eff usion. A large left effusion is present. Patient has a normal position of the enterostomy tube with the tip in the small bowel on tube placement KUB. Discharge - Discharge Clinical Impression: Malfunction of gastrostomy tube, Chronic CHF, Chronic anemia, Chronic renal failure, Malnourishment, Urinary tract infection Condition: Good Disposition: HOME, SELF-CARE Instructions: Urinary Tract Infection ([facility]) Additional Instructions: Urinary Tract Infection Your evaluation indicates that you have a urinary tract infection. This is due to germs growing in the bladder. This is a common problem. This infection usually responds quickly to antibiotics. Your antibiotic should be taken exactly as prescribed. Drink plenty of fluids -- three to four quarts a day. Occasionally, a bladder anesthetic will be prescribed to help stop the feeling of urgency until the antibiotic has a chance to clear the infection. This may cause your urine to be dark orange. Certain urine infections require a culture. If the doctor obtained a culture, the results will be back in two days. You should call to see if a thompson ge in treatment is needed. A repeat urinalysis after you finish treatment is often recommended. The physician will let you know if further testing is required. Call the doctor if you develop fever, chills, flank pain, inability to urinate, or blood in the urine. Your feeding tube was tested today in the department and we were able to flush as well as proved on KUB Gastrografin insertion the tube tip is in the proper location intraluminal without any spillage. Based on our evaluation of the G-tube you may begin using the G-tube and remember to flush after each use. Prescriptions: Cephalexin Monohydrate [Keflex 250 mg/5 ml Susp 100 ml] 10 ml GT TID 10 Days #300 ml Referrals: LISSETTE CROCKETT HAND STITCHER [Primary Care Provider] - Follow up as needed I personally performed the services described in the documentation, reviewed and edited the documentation which was dictated to the scribe in my presence, and it accurately records my words and actions.
[2020-06-10] MEDS ORDERED: DIPHENHYDRAMINE HCL 50 MG/ML VIAL IV ONE (12:02)
[2020-06-10] MEDS ORDERED: ONDANSETRON HCL INJ/PF 4 MG/2 ML SDV IV ONE (12:03)
[2020-06-10 13:19] VITALS: BP 122/81
== END 2020-06-10 13:19 | disposition home or self-care (01) ==
LOC: ER 07:32
DX: K94.23 Gastrostomy malfunction (principal); Y83.3 Surgical operation with formation of external stoma as the cause of abnormal reaction of the patient, or of later complication, without mention of misadventure at the time of the procedure; N39.0 Urinary tract infection, site not specified; E46 Unspecified protein-calorie malnutrition; I25.10 Atherosclerotic heart disease of native coronary artery without angina pectoris; I13.0 Hypertensive heart and chronic kidney disease with heart failure and stage 1 through stage 4 chronic kidney disease, or unspecified chronic kidney disease; I50.9 Heart failure, unspecified; N18.9 Chronic kidney disease, unspecified; D63.1 Anemia in chronic kidney disease; G89.29 Other chronic pain; Z99.81 Dependence on supplemental oxygen; Z90.5 Acquired absence of kidney; Z90.2 Acquired absence of lung [part of]; Z85.528 Personal history of other malignant neoplasm of kidney; Z85.118 Personal history of other malignant neoplasm of bronchus and lung
CPT/HCPCS: 96376; 99284; 96361; 96365; 36415; 87040; 87086; 83605; 83690; 85025; 80053; 81001; 83880; 49465; 71045; J1200; J1170; J2405; J7050; J0696; J1642

== ENCOUNTER 2020-06-11 21:38 | Emergency (ER) | payer MEDICARE, MEDICAID ==
--- NOTE | 2020-06-11 23:02 | ER Document Report ---
ED General - General Chief Complaint: Other Stated Complaint: DEVICE MALFUNCTION,FEEDING TUBE CLOGGED Primary Care Provider: LISSETTE CROCKETT NP [Primary Care Provider] - Follow up as needed Mode of Arrival: Stretcher Information source: Patient Notes: Emergency Provider: BLAIR COLON Number: [id number] Date: 06/10/20 07:59 Initialization Date: 06/10/20 07:59 Entered by RANDY NORIEGA SCRIBE 06/10/20 0800 Acting as scribe for:BLAIR COLON MD ED General - General Chief Complaint: Abdominal Pain Stated Complaint: FEEDING TUBE PROBLEMS Primary Care Provider: LISSETTE CROCKETT NP [Primary Care Provider] - Follow up as needed Information source: Patient, [facility] Records Notes: This 64 year old female patient with history of CHF, HTN, CAD, GERD, [place], CVA, ESRD, lung cancer and pancreatic cancer, presents to the emergency department today with LUQ abdominal pain around her feeding tube. Patient is a poor histo antonio and thinks her feeding tube was placed around April this year. Patient is on 3L of oxygen at home. states her last bowel movement was this morning and patient was discharged from [place] x2 days ago after staying there for 51 days. states when she left [place] there was no fever or chills but had a productive cough. Patient had pneumonia while at [place] and was treated. states her feeding tube is used to administer her crushed meds and had trouble flushing it this morning, but bile is draining normally. MY NOTES 64-year-old black female arrives by EMS with chief complaint of clogged up J- tube. She reports she was here last night and saw Dr. Colon who performed the same action as we did the night by putting some Pepsi-Cola into the J-tube and had perfect flow into her abdomen. We got a KUB after this was done. Patient tolerated this well. TRAVEL OUTSIDE OF THE [place] IN LAST 30 DAYS: No - Related Data Allergies/Adverse Reactions: sulfamethoxazole [From Bactrim] Allergy (Verified 12/29/19 11:47) trimethoprim [From Bactrim] Allergy (Verified 12/29/19 11:47) aspirin [Aspirin] Adverse Reaction (Verified 12/29/19 11:47) Past Medical History - General Information source: Patient - Social History Smoking Status: Unknown if Ever Smoked Cigarette use (# per day): No Chew tobacco use (# tins/day): No Smoking Education Provided: No Frequency of alcohol use: None Drug Abuse: None Lives with: Family Family History: CAD, Hypertension Patient has suicidal ideation: No Patient has homicidal ideation: No - Past Medical History Cardiac Medical History: Reports: Hx Congestive Heart Failure, Hx Coronary Artery Disease, Hx Heart Attack - 2013, Hx Hypercholesterolemia, Hx Hypertension Pulmonary Medical History: Reports: Hx Bronchitis, Hx Pneumonia Denies: Hx Asthma, Hx COPD, Hx Tuberculosis Neurological Medical History: Reports: Hx Cerebrovascular Accident - stroke 03/2014 while unresponsive following abd surgical complication. Denies: Hx Seizures Endocrine Medical History: Denies: Hx Diabetes Mellitus Type 1, Hx Diabetes Mellitus Type 2, Hx Hyperthyroidism, Hx Hypothyroidism Renal/ Medical History: Reports: Hx End Stage Renal Disease - kidney cancer, Hx Renal Insufficiency. Denies: Hx Peritoneal Dialysis Malignancy Medical History: Reports: Hx Lung Cancer - Right upper partial lobectomy 11/09/2018., Hx Pancreatic Cancer - Mass to tail pancreas, July 2015. Did not light up on PET scan., Hx Renal (Kidney) Cancer - Renal cell carcinoma with left nephrectomy 2007. GI Medical History: Reports: Hx Gastritis, Hx Gastroesophageal Reflux Disease. Denies: Hx Cirrhosis, Hx Crohn's Disease, Hx Diverticulitis, Hx Hepatitis, Hx Ulcerative Colitis Musculoskeletal Medical History: Reports Hx Arthritis - Right hip DJD., Reports Hx Gout Skin Medical History: Denies Hx Eczema, Denies Hx Psoriasis Psychiatric Medical History: Denies: Hx Depression Infectious Medical History: Denies: Hx Hepatitis Past Surgical History: Reports: Hx Abdominal Surgery - HERNIA, PERFORATED BOWEL, Hx Cholecystectomy, Hx Herniorrhaphy - Umbilical hernia repair complicated by bowel perforation and peritonitis, Hx Kidney (Renal Surgery) - Left nephrectomy for renal cell carcinoma, Hx Orthopedic Surgery - Right patella surgery for dislocation,, Hx Vascular Surgery - Port placed in right upper arm 01/19/2019. Retinal detachment repair., Other - EGD to evaluate pancreatic mass. Right upper partial lobectomy 11/09/2018.. Denies: Hx Hysterectomy - Immunizations Hx Diphtheria, Pertussis, Tetanus Vaccination: No Hx Pneumococcal Vaccination: 08/03/10 Review of Systems - Review of Systems Constitutional: No symptoms reported EENT: No symptoms reported Cardiovascular: No symptoms reported Respiratory: No symptoms reported Gastrointestinal: See HPI, Abdominal pain Genitourinary: No symptoms reported Female Genitourinary: No symptoms reported Musculoskeletal: No symptoms reported Skin: No symptoms reported Hematologic/Lymphatic: No symptoms reported Neurological/Psychological: No symptoms reported Physical Exam - Vital signs Vitals: Temp Pulse Resp BP Pulse Ox 98.1 F 97 22 H 137/85 H 100 06/11/20 21:48 06/11/20 21:48 06/11/20 21:48 06/11/20 21:48 06/11/20 21:48 Interpretation: Normal - General General appearance: Appears well, Alert - HEENT Head: Normocephalic, Atraumatic Eyes: Normal Pupils: PERRL - Respiratory Respiratory status: No respiratory distress Chest status: Nontender Breath sounds: Normal Chest palpation: Normal - Cardiovascular Rhythm: Regular Heart sounds: Normal auscultation Murmur: No - Abdominal Inspection: Other - j tube LUQ Distension: No distension Bowel sounds: Hyperactive Tenderness: Nontender Organomegaly: No organomegaly - Rectal Hemorrhoids: Other - deferred - Genitourinary Bimanuel exam: Other - deferred - Back Back: Normal, Nontender - Extremities General upper extremity: Normal inspection, Nontender, Normal color, Normal ROM, Normal temperature General lower extremity: Normal inspection, Nontender, Normal color, Normal ROM, Normal temperature, Normal weight bearing. No: Sami's sign - Neurological Neuro grossly intact: Yes Cognition: Normal Orientation: AAOx4 Justin Coma Scale Eye Opening: Spontaneous Justin Coma Scale Verbal: Oriented Justin Coma Scale Motor: Obeys Commands [place] Coma Scale Total: 15 Speech: Normal Motor strength normal: LUE, RUE, LLE, RLE Sensory: Normal - Psychological Associated symptoms: Normal affect, Normal mood - Skin Skin Temperature: Warm Skin Moisture: Dry Skin Color: Normal Course - Vital Signs Vital signs: Temp Pulse Resp BP Pulse Ox 98.1 F 99 20 172/102 H 100 06/11/20 21:48 06/11/20 23:21 06/12/20 00:12 06/12/20 00:12 06/12/20 00:12 Discharge - Discharge Clinical Impression: Epigastric abdominal pain, Excessive flatus Condition: Stable Disposition: HOME, SELF-CARE Additional Instructions: Follow-up with personal doctor this week return to ER as needed take medicines as directed per PEG and encourage fluids per PEG. May take applesauce via this area as well. Flush PEG with cola after each use and then with water. Prescriptions: Simethicone [ Gas Relief] 40 mg PEG TID #100 ml Referrals: LISSETTE CROCKETT, DRYING SUPERVISOR [Primary Care Provider] - Follow up as needed
[2020-06-11] MEDS ORDERED: MORPHINE SULFATE 10 MG/ML INJ IM ONE (23:33)
[2020-06-11] MEDS ORDERED: PROMETHAZINE HCL INJ 25 MG/1 ML VIAL IM ONE (23:34)
[2020-06-12] MEDS ORDERED: SIMETHICONE 40 MG/0.6 ML DROPS 30ML PEG ONE (01:23)
--- NOTE | 2020-06-12 01:32 | RADIOLOGY REPORT (SQ) ---
EXAM DESCRIPTION: X-ray, single view of the abdomen CLINICAL HISTORY: 64 years Female, j tube obstruction COMPARISON: Portable view of the abdomen April 15, 2020. Tube check performed June 10, 2020. FINDINGS: Postsurgical changes seen throughout the abdomen with multiple abdominal chhaya seen. A gastrojejunostomy tube is identified which extends through the stomach and terminates in the proximal jejunum. The appearance is unchanged from the tube injection procedure performed June 10, 2020. There is oral contrast noted in the left colon and in the rectal vault. The colon is mildly distended with air. IMPRESSION: Nonspecific bowel gas pattern. No obstruction. Gastrojejunostomy tube is appropriately positioned. Extensive postsurgical change throughout the abdomen.
[2020-06-12] MEDS ORDERED: SIMETHICONE 40 MG/0.6 ML DROPS 30ML ONE (03:14)
[2020-06-12] MEDS ORDERED: NITROGLYCERIN 2% OINTMENT 1 GM PACKET TP ONE (03:46)
[2020-06-12 07:38] VITALS: BP 162/98
== END 2020-06-12 08:29 | disposition home or self-care (01) ==
LOC: ER 21:38
DX: R10.13 Epigastric pain (principal); R14.3 Flatulence; I25.10 Atherosclerotic heart disease of native coronary artery without angina pectoris; I10 Essential (primary) hypertension; Z99.81 Dependence on supplemental oxygen; Z93.4 Other artificial openings of gastrointestinal tract status; Z88.1 Allergy status to other antibiotic agents; Z85.528 Personal history of other malignant neoplasm of kidney; Z85.07 Personal history of malignant neoplasm of pancreas; Z85.118 Personal history of other malignant neoplasm of bronchus and lung; Z90.2 Acquired absence of lung [part of]; Z90.5 Acquired absence of kidney
CPT/HCPCS: 99284; 74018; A9270 ×2; J2270; J2550; J3490

== ENCOUNTER 2020-06-16 09:35 | Emergency (ER) | payer MEDICARE, MEDICAID ==
--- NOTE | 2020-06-16 10:31 | ER Document Report ---
ED General - General Chief Complaint: Other Stated Complaint: RIGHT SIDE PAIN Time Seen by Provider: 06/16/20 10:09 Primary Care Provider: LISSETTE CROCKETT NP [Primary Care Provider] - Follow up as needed Mode of Arrival: Ambulatory Information source: Patient Notes: This 64-year-old woman presents to the emergency department with a history of a PEG tube which she states is clogged and accidentally pulled on the right thoracotomy tube accidentally. There is that the tube may have been pulled out of position. Patient been seen in the emergency department on prior occasion with feeding tube related difficulties. They state that the tube is clogged at this point. TRAVEL OUTSIDE OF THE [place] IN LAST 30 DAYS: No - Related Data Allergies/Adverse Reactions: sulfamethoxazole [From Bactrim] Allergy (Verified 06/16/20 09:39) trimethoprim [From Bactrim] Allergy (Verified 06/16/20 09:39) aspirin [Aspirin] Adverse Reaction (Verified 06/16/20 09:39) Home Medications: oxycodone Past Medical History - Social History Smoking Status: Former Smoker Chew tobacco use (# tins/day): No Frequency of alcohol use: None Drug Abuse: None Family History: CAD, Hypertension Patient has homicidal ideation: No - Past Medical History Cardiac Medical History: Reports: Hx Congestive Heart Failure, Hx Coronary Artery Disease, Hx Heart Attack - 2013, Hx Hypercholesterolemia, Hx Hypertension Pulmonary Medical History: Reports: Hx Bronchitis, Hx Pneumonia Denies: Hx Asthma, Hx COPD, Hx Tuberculosis Neurological Medical History: Reports: Hx Cerebrovascular Accident - stroke 03/2014 while unresponsive following abd surgical complication. Denies: Hx Seizures Endocrine Medical History: Denies: Hx Diabetes Mellitus Type 1, Hx Diabetes Mellitus Type 2, Hx Hyperthyroidism, Hx Hypothyroidism Renal/ Medical History: Reports: Hx End Stage Renal Disease - kidney cancer, Hx Renal Insufficiency. Denies: Hx Peritoneal Dialysis Malignancy Medical History: Reports: Hx Lung Cancer - Right upper partial lobectomy 11/09/2018., Hx Pancreatic Cancer - Mass to tail pancreas, July 2015. Did not light up on PET scan., Hx Renal (Kidney) Cancer - Renal cell carcinoma with left nephrectomy 2007. GI Medical History: Reports: Hx Gastritis, Hx Gastroesophageal Reflux Disease. Denies: Hx Cirrhosis, Hx Crohn's Disease, Hx Diverticulitis, Hx Hepatitis, Hx Ulcerative Colitis Musculoskeletal Medical History: Reports Hx Arthritis - Right hip DJD., Reports Hx Gout Skin Medical History: Denies Hx Eczema, Denies Hx Psoriasis Psychiatric Medical History: Denies: Hx Depression Infectious Medical History: Denies: Hx Hepatitis Past Surgical History: Reports: Hx Abdominal Surgery - HERNIA, PERFORATED BOWEL, Hx Cholecystectomy, Hx Herniorrhaphy - Umbilical hernia repair complicated by bowel perforation and peritonitis, Hx Kidney (Renal Surgery) - Left nephrectomy for renal cell carcinoma, Hx Orthopedic Surgery - Right patella surgery for dislocation,, Hx Vascular Surgery - Port placed in right upper arm 01/19/2019. Retinal detachment repair., Other - EGD to evaluate pancreatic mass. Right upper partial lobectomy 11/09/2018.. Denies: Hx Hysterectomy - Immunizations Hx Diphtheria, Pertussis, Tetanus Vaccination: No Hx Pneumococcal Vaccination: 08/03/10 Review of Systems - Review of Systems Notes: Constitutional: Negative for fever. HENT: Negative for sore throat. Eyes: Negative for visual changes. Cardiovascular: Negative for chest pain. Respiratory: + Right chest wall chest tube Gastrointestinal: + PEG tube left upper quadrant Genitourinary: Negative for dysuria. Musculoskeletal: Negative for back pain. Skin: Negative for rash. Neurological: Negative for headaches, weakness or numbness. 10 point ROS negative except as marked above and in HPI. Physical Exam - Vital signs Vitals: Temp Resp BP Pulse Ox 97.5 F 19 148/98 H 100 06/16/20 09:43 06/16/20 09:43 06/16/20 09:43 06/16/20 09:43 - Notes Notes: PHYSICAL EXAMINATION: Physical Exam: General: Chronically ill 64-year-old woman in acute distress HEENT: NC/AT, pupils equal round and reactive to light, MM moist,nares clear, oropharynx clear, airway patent Neck: supple, no adenopathy, no masses. Good range of motion Lungs: clear, no wheezing, no rales no rhonchi, pigtail thoracostomy tube right lateral chest wall CVS: Regular rate and rhythm no murmur gallop or rub Abdomen: Soft, active, PEG tube left upper quadrant, nontender, no masses, no h epatosplenomegaly Ext: No edema, clubbing or cyanosis. Neuro: Alert and responsive, moving all 4 extremities on command, cranial nerves intact, no focal findings Skin: Intact no open lesions, no rash Course - Re-evaluation Re-evalutation: 06/16/20 16:08 Patient accidentally pulled the chest tube, x-ray reveals that the tube is intact and still within the pleural space. The PEG tube was declogged and flushes well prior to the patient's discharge. The dressing was taken down from the chest tube, there is no bleeding sutures are intact and the tube is in place. - Vital Signs Vital signs: Temp Pulse Resp BP Pulse Ox 97.5 F 14 132/83 H 100 06/16/20 09:43 06/16/20 15:00 06/16/20 15:00 06/16/20 15:00 - Laboratory Result Diagrams: 06/16/20 11:52 06/16/20 11:52 Laboratory results interpreted by me: 06/16/20 06/16/20 06/16/20 11:52 11:52 13:38 RBC 3.11 L Hgb 9.3 L Hct 28.5 L RDW 18.7 H Lymph % (Auto) 12.3 L Seg Neutrophils % 79.4 H Sodium 146.5 H Carbon Dioxide 39 H BUN 59 H Creatinine 1.84 H Est GFR ( Amer) 34 L Est GFR (MDRD) Non-Af 28 L AST 42 H Alkaline Phosphatase 129 H Total Protein 5.6 L Albumin 2.8 L Urine Protein 100 H Urine Urobilinogen 2.0 H I have reviewed laboratory data and used this information for the treatment decisions regarding the patient. - Diagnostic Test Radiology reviewed: Image reviewed, Reports reviewed Radiology results interpreted by me: 06/16/20 16:09 Chest X-Ray 06/16/20 10:39 IMPRESSION: No change in the right chest tube. No pneumothorax. Discharge - Discharge Clinical Impression: PEG tube malfunction, Chest tube in place Condition: Good Disposition: HOME, SELF-CARE Additional Instructions: You were seen in the emergency department today with concerns regarding the righ t sided chest tube. The tube is intact and in good position. The PEG tube was declogged and flushes well. Please continue your tube feedings and chest tube drainage procedures as previously planned. Follow-up with your doctors as needed HOME CARE INSTRUCTIONS & INFORMATION: Thank you for choosing us for your medical needs. We hope you're satisfied with the care you received. After you leave, you must properly care for your problem and, at the same time, observe its progress. Any condition can change. Some illnesses can change rapidly over hours or days. If your condition worsens, return to the Emergency Department or see your physician promptly. ABOUT YOUR X-RAYS AND EKG'S: If you had an EKG or X-rays taken, they have been read by the Emergency Physician. The X-rays and EKG's will also be read by a Radiologist or [employer] within 24 hours. If discrepancies are noted, you will be notified by telephone. Please be certain the ED has a correct telephone number & address where you can be reached. Also, realize that some fractures or abnormalities do not show up on initial X-rays. If your symptoms continue, see your physician. ABOUT YOUR LABORATORY TEST: If you had laboratory tests, the results have been reviewed by the Emergency Physician. Some test results (for example cultures) may not be available for several days. You will be contacted if any test result shows you need additional treatment. Please be certain the ED has a correct telephone number and address where you can be reached. ABOUT YOUR MEDICATIONS: You will receive instructions on how to take your medicine on the prescription label you receive. Additional information may be provided by the Pharmacy. If you have questions afterwards, call the ED for clarification or further instructions. Some prescribed medications may cause drowsiness. Do not perform tasks such as driving a car or operating machinery without consulting your Pharmacist. If you feel you need a refill of pain me dication, your condition will need re-evaluation. Please do not call for a refill of any medication. ABOUT YOUR SIGNATURE: Signature of this document acknowledges to followin. Understanding that you received emergency treatment and that you may be released before al medical problems are known or treated. Please be certain the ED has a correct phone number & address where you can be reached. 2. Acknowledgement that you will arrange for follow-up care as recommended. 3. Authorization for the Emergency Physician to provide information to your follow-up Physician in order to maximize your care. AT ANY TIME, IF YOUR SYMPTOMS CHANGE SIGNIFICANTLY OR WORSEN OR YOU DEVELOP NEW SYMPTOMS, RETURN TO THE EMERGENCY DEPARTMENT IMMEDIATELY FOR RE-EVALUATION. OUR GOAL IS TO PROVIDE EXCELLENT MEDICAL CARE! WE HOPE THAT WE HAVE MET YOUR EXPECTATIONS DURING YOUR EMERGENCY DEPARTMENT VISIT AND THAT YOU FEEL YOU HAVE RECEIVED EXCELLENT CARE! Referrals: LISSETTE CROCKETT NP [Primary Care Provider] - Follow up as needed
[2020-06-16] MEDS ORDERED: ONDANSETRON HCL INJ/PF 4 MG/2 ML SDV IV ONE ×2 (10:35→16:12)
[2020-06-16] MEDS ORDERED: HYDROMORPHONE HCL INJ/PF 2 MG/ML AMPULE IV ONE ×2 (10:35→16:12)
[2020-06-16] MEDS ORDERED: NORMAL SALINE 1000 ML 1,000 ML IV ONE (10:37)
--- NOTE | 2020-06-16 11:58 | RADIOLOGY REPORT (SQ) ---
EXAM DESCRIPTION: CHEST SINGLE VIEW IMAGES COMPLETED DATE/TIME: 06/16/2020 11:11 am REASON FOR STUDY: pulled chest tube COMPARISON: Chest film 06/10/2020 EXAM PARAMETERS: NUMBER OF VIEWS: One view. TECHNIQUE: Single frontal radiographic view of the chest acquired. RADIATION DOSE: NA LIMITATIONS: None. FINDINGS: LUNGS AND PLEURA: Right-sided chest tube tip over the right lung apex. No pneumothorax. Trace right pleural fluid/pleural thickening along the inferior aspect right hemithorax Persistent small left pleural effusion with left basilar consolidation unchanged. No left pneumothor ax Old right upper lobectomy. MEDIASTINUM AND HILAR STRUCTURES: No masses. Contour normal. HEART AND VASCULAR STRUCTURES: Stable cardiomegaly BONES: No acute findings. HARDWARE: Unchanged right chest tube and right PICC line with the tip in the superior vena cava OTHER: No other significant finding. IMPRESSION: No change in the right chest tube. No pneumothorax. TECHNICAL DOCUMENTATION: JOB ID: [id number] 2010 [employer]- All Rights Reserved Reading location - IP/workstation name: [email or web address]
[2020-06-16 12:31] LABS: ABSOLUTE LYMPHOCYTES (AUTO) 0.6 10^3/uL (0.5-4.7); ABSOLUTE MONOCYTES (AUTO) 0.4 10^3/uL (0.1-1.4); ABSOLUTE NEUT (AUTO) 4.1 10^3/uL (1.7-8.2); BASOPHILS % (AUTO) 0.5 % (0-2); EOSINOPHILS % (AUTO) 0.3 % (0-6); HEMATOCRIT 28.5 % (36.0-47.0); HEMOGLOBIN 9.3 g/dL (12.0-15.5); LYMPHOCYTES % (AUTO) 12.3 % (13-45); MEAN CORPUSCULAR HEMOGLOBIN 29.8 pg (27.0-33.4); MEAN CORPUSCULAR HGB CONC 32.5 g/dL (32.0-36.0); MEAN CORPUSCULAR VOLUME 92 fl (80-97); MONOCYTES % (AUTO) 7.5 % (3-13); PLATELET COUNT 196 10^3/uL (150-450); RED BLOOD COUNT 3.11 10^6/uL (3.72-5.28); RED CELL DISTRIBUTION WIDTH 18.7 % (11.5-14.0); SEGMENTED NEUTROPHILS % (AUTO) 79.4 % (42-78); TOTAL CELLS COUNTED % (AUTO) 100 %; WHITE BLOOD COUNT 5.1 10^3/uL (4.0-10.5)
[2020-06-16 12:43] LABS: ALBUMIN 2.8 g/dL (3.5-5.0); ALKALINE PHOSPHATASE 129 U/L (38-126); ANION GAP 9 (5-19); ASPARTATE AMINO TRANSFERASE 42 U/L (14-36); BILIRUBIN,DIRECT 0.3 mg/dL (0.0-0.4); BILIRUBIN,TOTAL 0.8 mg/dL (0.2-1.3); BLOOD UREA NITROGEN 59 mg/dL (7-20); CALCIUM 8.6 mg/dL (8.4-10.2); CARBON DIOXIDE 39 mmol/L (22-30); CHLORIDE 99 mmol/L (98-107); GLUCOSE 102 mg/dL (75-110); POTASSIUM 4.2 mmol/L (3.6-5.0); TOTAL PROTEIN 5.6 g/dL (6.3-8.2)
[2020-06-16 13:56] LABS: APPEARANCE,URINE SLIGHTLY-CLOUDY; BILIRUBIN,URINE NEGATIVE (NEGATIVE); COLOR,URINE YELLOW; GLUCOSE, URINE NEGATIVE (NEGATIVE); KETONES,URINE NEGATIVE (NEGATIVE); PROTEIN,URINE 100 mg/dL (NEGATIVE); URINE SPECIFIC GRAVITY 1.014
[2020-06-16 18:02] VITALS: BP 128/82
== END 2020-06-16 18:02 | disposition home or self-care (01) ==
LOC: ER 09:35
DX: K94.23 Gastrostomy malfunction (principal); Y83.3 Surgical operation with formation of external stoma as the cause of abnormal reaction of the patient, or of later complication, without mention of misadventure at the time of the procedure; Z97.8 Presence of other specified devices; I25.10 Atherosclerotic heart disease of native coronary artery without angina pectoris; I10 Essential (primary) hypertension; E11.9 Type 2 diabetes mellitus without complications; Z79.891 Long term (current) use of opiate analgesic; Z87.891 Personal history of nicotine dependence; Z85.528 Personal history of other malignant neoplasm of kidney; Z85.118 Personal history of other malignant neoplasm of bronchus and lung; Z85.07 Personal history of malignant neoplasm of pancreas; Z90.2 Acquired absence of lung [part of]; Z90.5 Acquired absence of kidney; Z88.1 Allergy status to other antibiotic agents
CPT/HCPCS: 99284; 96361; 96374; 96375; 85025; 80053; 81001; 71045; J1170; J2405; J7030; J1642

== ENCOUNTER → 2020-07-11 | Outpatient (CLI) | payer MEDICARE ==
--- NOTE | 2020-07-11 12:26 | RADIOLOGY REPORT (SQ) ---
EXAM DESCRIPTION: CT ABD/PELVIS NO ORAL OR IV IMAGES COMPLETED DATE/TIME: 07/11/2020 10:32 am REASON FOR STUDY: (K85.9)ACUTE PANCREATITIS WITHOUT NECROSIS OR INFECTION, UNSP K85.90 ACUTE PANCRE ATITIS WITHOUT NECROSIS OR INFECTION, UNS K52.89 OTHER SPECIFIED NONINFECTIVE GASTROENTERITIS AND CO LI COMPARISON: 04/07/2020 TECHNIQUE: CT scan of the abdomen and pelvis performed without intravenous or oral contrast. Images reviewed with lung, soft tissue, and bone windows. Reconstructed coronal and sagittal MPR images revi ewed. All images stored on PACS. All CT scanners at this facility use dose modulation, iterative reconstruction, and/or weight based d osing when appropriate to reduce radiation dose to as low as reasonably achievable (ALARA). [facility]: Dose Right [facility]: CareDose [facility]: Dose Right [facility]: Teradose 4D [facility]: [employer] RADIATION DOSE: CT Rad equipment meets quality standard of care and radiation dose reduction techniq ues were employed. CTDIvol: 4.4 - 5.9 mGy. DLP: 564 mGy-cm.mGy. LIMITATIONS: None. FINDINGS: LOWER CHEST: Small left pleural effusion, increased from prior. Decreased size of the rig ht-sided pleural effusion. Small pericardial effusion. There is been placement of a right-sided lala neled chest tube. NON-CONTRASTED LIVER, SPLEEN, ADRENALS: Evaluation limited by lack of IV contrast. No identified sig nificant masses. PANCREAS: Resolution of previously seen peripancreatic fluid collections from prior. No new discrete drainable collections. Unchanged multifocal pancreatic calcifications. No definitive peripancreati c inflammatory change. GALLBLADDER: Surgically absent. RIGHT KIDNEY AND URETER: No suspicious masses. Assessment limited by lack of IV contrast. No signif icant calcifications. No hydronephrosis or hydroureter. LEFT KIDNEY AND URETER: Surgically absent. AORTA AND RETROPERITONEUM: No aneurysm. No retroperitoneal masses or adenopathy. BOWEL AND PERITONEAL CAVITY: Few nonspecific mildly dilated small bowel loops with associated gas flu id levels. Largest within the midline pelvis measuring up to 2.7 cm. No evidence of high-grade obst ruction with gas and stool noted throughout the colon. Evidence of prior bowel resection with anasto motic chain staple line at the ascending colon. No focal bowel wall thickening. Gastrojejunostomy t ube in expected location. No free fluid or intraperitoneal gas. APPENDIX: Not visualized. PELVIS, BLADDER, AND ABDOMINAL WALL:Evidence of prior midline hernia repair. No subcutaneous masses or fluid collections. Unremarkable urinary bladder. BONES: No acute bony abnormality. No discrete lytic or blastic osseous lesions. OTHER: No other significant finding. IMPRESSION: 1. Resolution of previously-seen peripancreatic fluid collections. No definitive findi ngs of pancreatitis on this noncontrast exam. No new drainable collections. Multifocal pancreatic p arenchymal calcifications compatible chronic pancreatitis. 2. Few nonspecific mildly dilated small bowel loops with a scattered gas fluid levels, possibly seco ndary to enteritis. No high-grade obstruction. Gastrojejunostomy tube in expected location. 3. Decreased size of the right-sided pleural effusion. Mildly increased size of the small left pleu ral effusion from prior. 4. Additional incidental findings as above. COMMENT: Quality ID # [id number]: Final reports with documentation of one or more dose reduction techniques (e.g., Automated exposure control, adjustment of the mA and/or kV according to patient size, use of iterative reconstruction technique) TECHNICAL DOCUMENTATION: JOB ID: [id number] 2010 [employer]- All Rights Reserved Reading location - IP/workstation name: [email or web address]
== END ==
LOC: RAD 10:13
PROVIDERS: ATTEND Internal Medicine Gastroenterology
DX: K85.90 Acute pancreatitis without necrosis or infection, unspecified (principal); R11.2 Nausea with vomiting, unspecified; R19.7 Diarrhea, unspecified
CPT/HCPCS: 74176

== ENCOUNTER 2020-07-24 09:06 | Inpatient (IN) | payer MEDICARE, MEDICAID ==
[2020-07-24 10:54] LABS: ABSOLUTE EOSINOPHILS # (AUTO) 0.1 10^3/uL (0.0-0.6); ABSOLUTE LYMPHOCYTES (AUTO) 0.7 10^3/uL (0.5-4.7); ABSOLUTE MONOCYTES (AUTO) 0.4 10^3/uL (0.1-1.4); BASOPHILS % (AUTO) 0.3 % (0-2); EOSINOPHILS % (AUTO) 0.9 % (0-6); HEMATOCRIT 20.1 % (36.0-47.0); LYMPHOCYTES % (AUTO) 9.9 % (13-45); MEAN CORPUSCULAR HEMOGLOBIN 28.7 pg (27.0-33.4); MEAN CORPUSCULAR HGB CONC 32.1 g/dL (32.0-36.0); MEAN CORPUSCULAR VOLUME 89 fl (80-97); MONOCYTES % (AUTO) 5.4 % (3-13); PLATELET COUNT 166 10^3/uL (150-450); RED BLOOD COUNT 2.26 10^6/uL (3.72-5.28); RED CELL DISTRIBUTION WIDTH 18.7 % (11.5-14.0); SEGMENTED NEUTROPHILS % (AUTO) 83.5 % (42-78); TOTAL CELLS COUNTED % (AUTO) 100 %; WHITE BLOOD COUNT 7.2 10^3/uL (4.0-10.5)
[2020-07-24 11:00] LABS: HEMOGLOBIN 6.5 g/dL (12.0-15.5)
[2020-07-24 11:02] LABS: ALBUMIN 2.6 g/dL (3.5-5.0); ALKALINE PHOSPHATASE 172 U/L (38-126); ASPARTATE AMINO TRANSFERASE 51 U/L (14-36); BILIRUBIN,DIRECT 0.5 mg/dL (0.0-0.4); BILIRUBIN,TOTAL 0.8 mg/dL (0.2-1.3); CALCIUM 8.5 mg/dL (8.4-10.2); CHLORIDE 83 mmol/L (98-107); GLUCOSE 114 mg/dL (75-110)
[2020-07-24 11:11] LABS: ANION GAP 7 (5-19); BLOOD UREA NITROGEN 123 mg/dL (7-20)
[2020-07-24 11:14] LABS: CARBON DIOXIDE 44 mmol/L (22-30)
[2020-07-24] MEDS ORDERED: NORMAL SALINE 250 ML IV PRN ×2 (11:18)
[2020-07-24 12:08] LABS: IRON(TIBC) 35.1 ug/dL (37-170)
[2020-07-24 13:28] LABS: FOLATE > 20.00 ng/mL (>2.76)
[2020-07-24] MEDS ORDERED: NORMAL SALINE 1000 ML 1,000 ML IV ONE (17:27)
--- NOTE | 2020-07-24 17:47 | ER Document Report ---
ED General - General Chief Complaint: Abnormal Lab Results Stated Complaint: ABNORMAL LABS Time Seen by Provider: 07/24/20 10:31 Primary Care Provider: LISSETTE CROCKETT NP [Primary Care Provider] - Follow up as needed Information source: Patient TRAVEL OUTSIDE OF THE [place] IN LAST 30 DAYS: No - HPI Notes: Patient with a history of lung cancer, patient states she is tomorrow at [facility] and was having some preop labs done. The laboratory showed her to be anemic so she was referred to the emergency department. She does complain of malaise and weakness. However she denies dark stools or tarry stools. She denies bloody stools. No vomiting. She denies any new pain but she does take narcotics for chronic pain. She does have a history of chronic pancreatitis, tube feeds, and lung cancer. She states she does have weakness and shortness of breath with any type of exertion. - Related Data Allergies/Adverse Reactions: sulfamethoxazole [From Bactrim] Allergy (Verified 07/24/20 09:42) trimethoprim [From Bactrim] Allergy (Verified 07/24/20 09:42) aspirin [Aspirin] Adverse Reaction (Verified 07/24/20 09:42) Past Medical History - General Information source: Patient - Social History Smoking Status: Former Smoker Frequency of alcohol use: None Drug Abuse: None Family History: CAD, Hypertension Patient has homicidal ideation: No - Past Medical History Cardiac Medical History: Reports: Hx Congestive Heart Failure, Hx Coronary Artery Disease, Hx Heart Attack - 2013, Hx Hypercholesterolemia, Hx Hypertension Pulmonary Medical History: Reports: Hx Bronchitis, Hx Pneumonia Denies: Hx Asthma, Hx COPD, Hx Tuberculosis Neurological Medical History: Reports: Hx Cerebrovascular Accident - stroke 03/2014 while unresponsive following abd surgical complication. Denies: Hx Seizures Endocrine Medical History: Denies: Hx Diabetes Mellitus Type 1, Hx Diabetes Mellitus Type 2, Hx Hyperthyroidism, Hx Hypothyroidism Renal/ Medical History: Reports: Hx End Stage Renal Disease - kidney cancer, Hx Renal Insufficiency. Denies: Hx Peritoneal Dialysis Malignancy Medical History: Reports: Hx Lung Cancer - Right upper partial lobectomy 11/09/2018., Hx Pancreatic Cancer - Mass to tail pancreas, July 2015. Did not light up on PET scan., Hx Renal (Kidney) Cancer - Renal cell carcinoma with left nephrectomy 2007. GI Medical History: Reports: Hx Gastritis, Hx Gastroesophageal Reflux Disease. Denies: Hx Cirrhosis, Hx Crohn's Disease, Hx Diverticulitis, Hx Hepatitis, Hx Ulcerative Colitis Musculoskeletal Medical History: Reports Hx Arthritis - Right hip DJD., Reports Hx Gout Skin Medical History: Denies Hx Eczema, Denies Hx Psoriasis Psychiatric Medical History: Denies: Hx Depression Infectious Medical History: Denies: Hx Hepatitis Past Surgical History: Reports: Hx Abdominal Surgery - HERNIA, PERFORATED BOWEL, Hx Cholecystectomy, Hx Herniorrhaphy - Umbilical hernia repair complicated by bowel perforation and peritonitis, Hx Kidney (Renal Surgery) - Left nephrectomy for renal cell carcinoma, Hx Orthopedic Surgery - Right patella surgery for dislocation,, Hx Vascular Surgery - Port placed in right upper arm 01/19/2019. Retinal detachment repair., Other - EGD to evaluate pancreatic mass. Right upper partial lobectomy 11/09/2018.. Denies: Hx Hysterectomy - Immunizations Hx Diphtheria, Pertussis, Tetanus Vaccination: No Hx Pneumococcal Vaccination: 08/03/10 Review of Systems - Review of Systems Constitutional: Malaise, Weakness Cardiovascular: denies: Chest pain, Palpitations Respiratory: Short of breath. denies: Cough Gastrointestinal: Abdominal pain -: Yes All other systems reviewed and negative Physical Exam - Vital signs Vitals: Temp Pulse Resp BP Pulse Ox 98.5 F 125 H 18 90/64 L 99 07/24/20 09:12 07/24/20 09:12 07/24/20 09:12 07/24/20 09:12 07/24/20 09:12 Interpretation: Hypotensive, Tachycardic - General General appearance: Alert In distress: Mild - HEENT Head: Normocephalic, Atraumatic Eyes: Normal Pupils: PERRL - Respiratory Respiratory status: Respiratory distress - Mild, Tachypnea Chest status: Nontender Breath sounds: Decreased air movement Chest palpation: Normal - Cardiovascular Rhythm: Tachycardia Heart sounds: Normal auscultation Murmur: No - Abdominal Inspection: Obese Bowel sounds: Hypoactive Tenderness: Tender - Diffusely Organomegaly: No organomegaly - Back Back: Normal, Nontender - Extremities General upper extremity: Normal inspection, Nontender, Normal color, Normal ROM, Normal temperature General lower extremity: Normal inspection, Nontender, Normal color, Normal ROM, Normal temperature, Normal weight bearing. No: Sami's sign - Neurological Neuro grossly intact: Yes Cognition: Normal Orientation: AAOx4 Justin Coma Scale Eye Opening: Spontaneous [place] Coma Scale Verbal: Oriented Justin Coma Scale Motor: Obeys Commands Justin Coma Scale Total: 15 Speech: Normal Motor strength normal: LUE, RUE, LLE, RLE Sensory: Normal - Psychological Associated symptoms: Normal affect, Normal mood - Skin Skin Temperature: Warm Skin Moisture: Dry Skin Color: Normal Course - Re-evaluation Re-evalutation: 07/24/20 17:46 Patient was seen for anemia. Patient hemoglobin was 6.5. I gave the patient 2 units of packed red blood cells. Patient also was initially tachycardic and hypotensive. After the 2 units of blood she is no longer tachycardic or hypotensive. She also has evidence of acute kidney injury with her creatinine going from 1.8-3.1. I have spoke with her surgeon at [facility], her secretary receptionist, the surgeon on-call at [place], and her dry cleaning teacher. I also spoke with the hospitalist. Together we have decided that the most prudent course with patient at this time is for admission to the hospital, rehydration, serial exams and serial lab values. The surgeon at [facility] states that he will consider placing the stent in early August if patient is doing better. - Vital Signs Vital signs: Temp Pulse Resp BP Pulse Ox 98.4 F 99 23 H 118/77 97 07/24/20 14:01 07/24/20 15:15 07/24/20 15:15 07/24/20 15:15 07/24/20 15:15 - Laboratory Results Result Diagrams: 07/24/20 10:09 07/24/20 10:09 Laboratory Results Interpreted: 07/24/20 07/24/20 07/24/20 10:09 10:09 10:09 RBC 2.26 L Hgb 6.5 L Hct 20.1 L RDW 18.7 H Lymph % (Auto) 9.9 L Seg Neutrophils % 83.5 H Sodium 134.1 L Chloride 83 L Carbon Dioxide 44 H* BUN 123 H Creatinine 3.17 H Est GFR ( Amer) 18 L Est GFR (MDRD) Non-Af 15 L Glucose 114 H Iron Ferritin Direct Bilirubin 0.5 H AST 51 H ALT 49 H Alkaline Phosphatase 172 H Total Protein 6.0 L Albumin 2.6 L Crossmatch See Detail 07/24/20 10:09 RBC Hgb Hct RDW Lymph % (Auto) Seg Neutrophils % Sodium Chloride Carbon Dioxide BUN Creatinine Est GFR ( Amer) Est GFR (MDRD) Non-Af Glucose Iron 35.1 L Ferritin 2580.00 H Direct Bilirubin AST ALT Alkaline Phosphatase Total Protein Albumin Crossmatch Critical Laboratory Results Reviewed: Yes Attending or Supervising Physician who Reviewed Labs: CARLY DUMONT - Radiology Results Critical Radiology Results Reviewed: No Critical Results Critical Care Note - Critical Care Note Total time excluding time spent on procedures (mins): 55 Comments: Approximate 55 minutes of critical care time were spent on this patient severe anemia.. This includes multiple reassessments. And included discussions with multiple consultants. It included reviewing old records. It included reviewing laboratory values. Discharge - Discharge Clinical Impression: Chronic pain syndrome Acute renal failure Qualifiers: Acute renal failure type: unspecified Qualified Code(s): N17.9 - Acute kidney failure, unspecified Anemia Qualifiers: Anemia type: iron deficiency Iron deficiency anemia type: chronic blood loss Qualified Code(s): D50.0 - Iron deficiency anemia secondary to blood loss (chronic) Condition: Serious Disposition: ADMITTED INPATIENT Admitting Provider: Fifi (Hospitalist) Unit Admitted: Telemetry Referrals: LISSETTE CROCKETT NP [Primary Care Provider] - Follow up as needed
[2020-07-24] MEDS ORDERED: ACETAMINOPHEN 325 MG TABLET JT PRN (18:40)
--- NOTE | 2020-07-24 19:05 | PDOC H&P ---
History of Present Illness Admission Date/PCP: 07/24/20 18:45 LISSETTE CROCKETT NP Patient complains of: Abnormal laboratory studies History of Present Illness: JIHAN MORA is a 64 year old female who was scheduled to go to [facility] to have a pancreatic stent placed. She has been having episodes of acute on chronic pancreatitis. She has had pancreatic stones in the past. Preadmission laboratory studies revealed a hemoglobin of 6.5. BUN was 123 with a creatinine of 3.17. Bicarb is 44. Iron studies were performed as well. She was given 2 units of packed red blood cells in the emergency department. Dr. Wolfe is her wireless consultant. Due to the significantly increased levels she recommended admission for gentle hydration and monitoring of her renal function. In April her hemoglobin was below 7 and she received 2 units of packed red cells at that time. It is extremely unlikely that she has a recurrent bleed. I believe the anemia is more combination of iron deficiency with her chronic illness and renal failure. Her most prominent symptoms are right shoulder pain which has been chronic. She also states that she has had some nausea but has no t seen any blood in the vomitus. During this encounter she asked for the head of the bed to be elevated because she was having some difficulty breathing. Normally she is on 1.5 L/min nasal cannula oxygen at home. She does have a jejunostomy tube and gets Nepro at 40 mL/h continuous. At home she does take sips of clear liquids. She also has a Pleurx catheter. Her daughters, who are on the phone, stated that there was no output yesterday and they did not attempt to drain it today because the patient presented to the hospital. I explained that we will get a chest x-ray and that would give us an idea of fluid and that the nurses will be checking this on a regular basis. Her was going to get paperwork from [facility]. When she was discharged from [facility] in April he reports that there were multiple medication changes and so I want to be current and have her on the correct medication regimen. The emergency department physician spoke with her physician at [facility]. It is likely they will reschedule the procedure after the holidays. Past Medical History Cardiac Medical History: Reports: Congestive Heart Failure, Coronary Artery Disease, Myocardial Infarction - 2014, Hyperlipidema, Hypertension Pulmonary Medical History: Reports: Bronchitis, Pneumonia Denies: Asthma, Chronic Obstructive Pulmonary Disease (COPD), Tuberculosis Neurological Medical History: Denies: Seizures Endocrine Medical History: Denies: Diabetes Mellitus Type 1, Diabetes Mellitus Type 2, Hyperthyroidism, Hypothyroidism Renal/ Medical History: Reports: End Stage Renal Disease - kidney cancer Malignancy Medical History: Reports: Lung Cancer - Right upper partial lobectomy 11/09/2018., Pancreatic Cancer - Mass to tail pancreas, July 2015. Did not light up on PET scan., Renal (Kidney) Cancer - Renal cell carcinoma with left nephrectomy 2007. GI Medical History: Reports: Other - Recurrent pancreatitis Denies: Cirrhosis, Crohn's Disease, Diverticulitis, Gastroesophageal Reflux Disease, Hepatitis, Ulcerative Colitis Musculoskeltal Medical History: Reports: Arthritis - Right hip DJD., Gout Skin Medical History: Denies: Eczema, Psoriasis Psychiatric Medical History: Denies: Depression Hematology: Reports: Anemia Denies: Bleeding Tendencies Past Surgical History Past Surgical History: Reports: Cholecystectomy, Herniorrhaphy - Umbilical hernia repair complicated by bowel perforation and peritonitis, Orthopedic Surgery - Right patella surgery for dislocation,, Vascular Surgery - Port placed in right upper arm 01/19/2019. Retinal detachment repair., Other - EGD to evaluate pancreatic mass. Right upper partial lobectomy 11/09/2018. Denies: Hysterectomy Social History Information Source: Patient, [facility] Records Lives with: Family Smoking Status: Former Smoker Electronic Cigarette use?: No Frequency of Alcohol Use: None Hx Recreational Drug Use: No Drugs: None Hx Prescription Drug Abuse: No - Advance Directive Resuscitation Status: Full Code Surrogate healthcare decision maker:: The patient's daughter Polina is the primary decision maker in the event that the patient is incapacitated. Family History Family History: CAD, Hypertension Parental Family History Reviewed: Yes Children Family History Reviewed: Yes Sibling(s) Family History Reviewed.: Yes Medication/Allergy Home Medications: Acetaminophen 500 mg PEG Q8HP PRN 07/24/20 Bumetanide 1 mg PEG DAILY 07/24/20 Calcitriol [Rocaltrol 1 mcg/1 mL Oral Soln 15 mL] 0.25 ml PEG DAILY 07/24/20 Cholecalciferol (Vitamin D3) [Vitamin D3 1000 Unit Tablet] 1,000 unit PEG DAILY 07/24/20 Folic Acid [Folvite 1 mg Tablet] 1 mg PEG DAILY 07/24/20 Ipratropium/Albuterol Sulfate [Duoneb 3 ml Ampul] 3 ml NEB [id number] PRN 07/24/20 Latanoprost [Xalatan 0.005% Oph Soln 2.5 ml] 1 drop OU QHS 07/24/20 Lipase/Protease/Amylase [Arleen Fontaine 6,000 Units Capsule] 10 cap PEG Q6 07/24/20 Loperamide HCl [Anti-Diarrheal] 15 ml PEG DAILYP PRN 07/24/20 Metoprolol Tartrate [Lopressor 25 mg Tablet] 12.5 mg PEG Q12 07/24/20 Multivit-Min/Ferrous Fumarate [Multivitamin Liquid] 10 ml PEG DAILY 07/24/20 Ondansetron HCl [Zofran 8 mg Tablet] 8 mg PEG Q6HP PRN 07/24/20 Oxycodone HCl 5 ml PEG Q6HP PRN 07/24/20 Sodium Bicarbonate [Sodium Bicarbonate Powder 120 gm Bottle] 20 ml PEG AC 07/24/20 Trazodone HCl [Desyrel 50 mg Tablet] 50 mg PEG HSP PRN 07/24/20 Allergies/Adverse Reactions: sulfamethoxazole [From Bactrim] Allergy (Verified 07/24/20 09:42) trimethoprim [From Bactrim] Allergy (Verified 07/24/20 09:42) aspirin [Aspirin] Adverse Reaction (Verified 07/24/20 09:42) Review of Systems All systems: reviewed and no additional remarkable complaints except as stated Respiratory: PRESENT: dyspnea, other - Chronic oxygen supplementation Gastrointestinal: PRESENT: nausea, vomiting Musculoskeletal: PRESENT: other - Right shoulder pain Physical Exam Vital Signs: Temp Pulse Resp BP Pulse Ox 98.4 F 99 18 125/75 99 07/24/20 14:01 07/24/20 15:15 07/24/20 17:44 07/24/20 17:44 07/24/20 17:44 Intake & Output 07/23/20 07/24/20 07/25/20 06:59 06:59 06:59 Intake Total 600 Balance 600 Weight 63.6 kg General appearance: PRESENT: cooperative, mild distress, well-developed Head exam: PRESENT: atraumatic, normocephalic Eye exam: PRESENT: conjunctiva pale, EOMI. ABSENT: scleral icterus Ear exam: PRESENT: normal external ear exam. ABSENT: bleeding, drainage Mouth exam: PRESENT: moist, tongue midline Neck exam: ABSENT: carotid bruit, JVD, lymphadenopathy, tracheostomy Respiratory exam: PRESENT: decreased breath sounds - At bases, rales - Scattered bilateral, symmetrical. ABSENT: accessory muscle use, rhonchi, tachypnea, wheezes Cardiovascular exam: PRESENT: RRR, +S1, +S2. ABSENT: bradycardia, diastolic murmur, irregular rhythm, systolic murmur, tachycardia GI/Abdominal exam: PRESENT: normal bowel sounds, soft, other - Pleurx drain tube right upper quadrant. Jejunostomy tube present as well. Tube sites nontender.. ABSENT: distended, guarding, tenderness Rectal exam: PRESENT: deferred Gentrourinary exam: ABSENT: indwelling catheter Extremities exam: ABSENT: calf tenderness, pedal edema Musculoskeletal exam: PRESENT: normal inspection. ABSENT: deformity, dislocatio n Neurological exam: PRESENT: alert, awake, oriented to person, oriented to place, oriented to time, oriented to situation, CN II-XII grossly intact. ABSENT: altered Psychiatric exam: PRESENT: appropriate affect - Affect reflects her current clinical state. She is ill-appearing.. ABSENT: agitated, anxious Focused psych exam: ABSENT: delusional, paranoid, restlessness Skin exam: PRESENT: dry, normal color, warm. ABSENT: rash Results Laboratory Results: 07/24/20 10:09 07/24/20 10:09 07/24/20 07/24/20 07/24/20 10:09 10:09 10:09 WBC 7.2 RBC 2.26 L Hgb 6.5 L Hct 20.1 L MCV 89 MCH 28.7 MCHC 32.1 RDW 18.7 H Plt Count 166 Seg Neutrophils % 83.5 H Retic Count (auto) Sodium 134.1 L Potassium 4.0 Chloride 83 L Carbon Dioxide 44 H* Anion Gap 7 BUN 123 H Creatinine 3.17 H Est GFR ( Amer) 18 L Glucose 114 H Calcium 8.5 Iron TIBC % Saturation Ferritin Total Bilirubin 0.8 AST 51 H Alkaline Phosphatase 172 H Total Protein 6.0 L Albumin 2.6 L Vitamin B12 Folate Blood Type O POSITIVE Antibody Screen NEGATIVE 07/24/20 07/24/20 10:09 10:09 WBC RBC Hgb Hct MCV MCH MCHC RDW Plt Count Seg Neutrophils % Retic Count (auto) 1.80 Sodium Potassium Chloride Carbon Dioxide Anion Gap BUN Creatinine Est GFR ( Amer) Glucose Calcium Iron 35.1 L TIBC 260 % Saturation 14 Ferritin 2580.00 H Total Bilirubin AST Alkaline Phosphatase Total Protein Albumin Vitamin B12 563.0 Folate > 20.00 Blood Type Antibody Screen Assessment and Plan - Diagnosis (1) Anemia, chronic renal failure Qualifiers: Chronic kidney disease stage: stage 4 (severe) Qualified Code(s): N18.4 - Chronic kidney disease, stage 4 (severe); D63.1 - Anemia in chronic kidney disease Is this a current diagnosis for this admission?: Yes (2) Acute on chronic renal insufficiency Is this a current diagnosis for this admission?: Yes (3) Acute on chronic pancreatitis Is this a current diagnosis for this admission?: Yes (4) Hypertension Qualifiers: Hypertension type: essential hypertension Qualified Code(s): I10 - Essential (primary) hypertension Is this a current diagnosis for this admission?: Yes (5) CAD (coronary artery disease) Qualifiers: Coronary Disease-Associated Artery/Lesion type: [place] artery Is this a current diagnosis for this admission?: Yes (6) CHF (congestive heart failure) Qualifiers: Heart failure type: unspecified Heart failure chronicity: chronic Qualified Code(s): I50.9 - Heart failure, unspecified Is this a current diagnosis for this admission?: Yes - Plan Summary Summary: 07/24/2020 Anemia-anemia is of mixed etiology. There is her chronic kidney disease, chronic illness and low serum iron levels. She will receive 2 units of packed red blood cells. With her history of heart failure we will need to judiciously utilize fluids. Will monitor intake and output and daily weights. Acute on chronic kidney disease-marked difference in her renal function. I am holding her Bumex at this time. She may be alkalotic from diuresis. Serial laboratory studies and consult with Dr. Wolfe. Acute on chronic pancreatitis-she was due for a pancreatic duct stent but this is on hold due to her anemia and kidney failure. Will check lipase. We will continue pancreatic enzymes and tube feeds with Nepro. Hypertension-continue current home medication regimen except Bumex. Coronary artery disease with heart failure-last echocardiogram was at least 5 years ago. Ejection fraction was normal at that time. Will review old records to try and ascertain the degree of heart failure. As noted above currently holding Bumex and providing hydration. History of multiple malignancies none of which are actively undergoing treatment. - Time Time Spent with patient: 35 or more minutes Medications reviewed and adjusted accordingly: Yes Anticipated Discharge Disposition: Home with Home Health Anticipated Discharge Timeframe: Unknown - Inpatient Certification Based on my medical assessment, after consideration of the patient's comorbidities, presenting symptoms, or acuity I expect that the services needed warrant INPATIENT care.: Yes I certify that my determination is in accordance with my understanding of Medicare's requirements for reasonable and necessary INPATIENT services [42 CFR 412.3e].: Yes Medical Necessity: Significant Comorbidiites Make Outpatient Treatment Too [place], Need Close Monitoring Due to Risk of Patient Decompensation, Need For IV Fluids, Need For Continuous Telemetry Monitoring, Need for Nebulizer Therapy and Monitoring of Response, Need for Pain Control Post Hospital Care: D/C or Transfer Summary
--- NOTE | 2020-07-24 19:06 | RADIOLOGY REPORT (SQ) ---
EXAM DESCRIPTION: CHEST SINGLE VIEW IMAGES COMPLETED DATE/TIME: 07/24/2020 6:55 pm REASON FOR STUDY: pleural effusion COMPARISON: 06/16/2020 EXAM PARAMETERS: NUMBER OF VIEWS: One view. TECHNIQUE: Single frontal radiographic view of the chest acquired. RADIATION DOSE: NA LIMITATIONS: None. FINDINGS: LUNGS AND PLEURA: Elevated right hemidiaphragm. Small right pleural effusion. Right apic al pleural capping. Cannot exclude a minimal left pleural effusion. MEDIASTINUM AND HILAR STRUCTURES: No masses. Contour normal. HEART AND VASCULAR STRUCTURES: Heart size is borderline. No stevie pulmonary edema. BONES: No acute findings. HARDWARE: Right-sided PICC with the tip of the catheter in the superior vena cava. Thoracotomy tube on the right. OTHER: No other significant finding. IMPRESSION: There appear to be chronic changes on the right. Cannot exclude small pleural effusions . Borderline heart size without stevie pulmonary edema. TECHNICAL DOCUMENTATION: JOB ID: [id number] 2010 [employer]- All Rights Reserved Reading location - IP/workstation name: [email or web address]
[2020-07-24] MEDS ORDERED: TRAZODONE HCL 50 MG TABLET PEG PRN (20:41)
[2020-07-24] MEDS ORDERED: IPRATROPIUM/ALBUTEROL 0.5-2.5 MG/3 ML AMPUL NEB PRN (20:41)
[2020-07-24] MEDS ORDERED: ONDANSETRON HCL 8 MG TABLET PEG PRN (20:41)
[2020-07-24] MEDS ORDERED: LOPERAMIDE HCL 2 MG CAPSULE JT PRN (20:43)
[2020-07-24] MEDS ORDERED: PHARMACY COMMUNICATION ORDER MC NR (20:45)
[2020-07-24] MEDS: HEPARIN SOD (PORCINE) 5,000 UNIT/ML 1 ML VIAL SUBCUT SCH (22:26)
[2020-07-24] MEDS: METOPROLOL TARTRATE 25 MG TABLET PEG SCH (22:26)
[2020-07-24] MEDS: OXYCODONE HCL IR 5 MG TABLET JT PRN (22:28)
[2020-07-24] MEDS: LATANOPROST 0.005% OPH SOLN 2.5 ML OU SCH (22:47)
[2020-07-24] MEDS ORDERED: ONDANSETRON HCL 8 MG TABLET ONE (23:20)
[2020-07-25] MEDS ORDERED: LIPASE PEG SCH
[2020-07-25] MEDS ORDERED: [UNRECOGNIZED DRUG - OTHER] PEG SCH
[2020-07-25] MEDS ORDERED: PROTEASE PEG SCH
[2020-07-25] MEDS ORDERED: AMYLASE PEG SCH
[2020-07-25] MEDS: HEPARIN SOD (PORCINE) 5,000 UNIT/ML 1 ML VIAL SUBCUT SCH ×3 (05:44→21:08)
[2020-07-25 06:25] LABS: ABSOLUTE LYMPHOCYTES (AUTO) 0.5 10^3/uL (0.5-4.7); ABSOLUTE MONOCYTES (AUTO) 0.3 10^3/uL (0.1-1.4); ABSOLUTE NEUT (AUTO) 4.7 10^3/uL (1.7-8.2); BASOPHILS % (AUTO) 0.4 % (0-2); EOSINOPHILS % (AUTO) 0.8 % (0-6); HEMATOCRIT 28.7 % (36.0-47.0); LYMPHOCYTES % (AUTO) 9.8 % (13-45); MEAN CORPUSCULAR HEMOGLOBIN 29.3 pg (27.0-33.4); MEAN CORPUSCULAR HGB CONC 33.2 g/dL (32.0-36.0); MEAN CORPUSCULAR VOLUME 88 fl (80-97); MONOCYTES % (AUTO) 5.5 % (3-13); PLATELET COUNT 135 10^3/uL (150-450); RED BLOOD COUNT 3.25 10^6/uL (3.72-5.28); RED CELL DISTRIBUTION WIDTH 17.2 % (11.5-14.0); SEGMENTED NEUTROPHILS % (AUTO) 83.5 % (42-78); TOTAL CELLS COUNTED % (AUTO) 100 %; WHITE BLOOD COUNT 5.6 10^3/uL (4.0-10.5)
[2020-07-25 06:30] LABS: HEMOGLOBIN 9.5 g/dL (12.0-15.5)
[2020-07-25 06:32] LABS: ALBUMIN 2.5 g/dL (3.5-5.0); BLOOD UREA NITROGEN 112 mg/dL (7-20); CALCIUM 8.6 mg/dL (8.4-10.2); CHLORIDE 92 mmol/L (98-107); GLUCOSE 88 mg/dL (75-110); PHOSPHORUS 5.1 mg/dL (2.5-4.5); POTASSIUM 4.1 mmol/L (3.6-5.0)
[2020-07-25 06:40] LABS: ANION GAP 5 (5-19)
[2020-07-25 06:41] LABS: CARBON DIOXIDE 41 mmol/L (22-30)
[2020-07-25] MEDS: CHOLECALCIFEROL (D3) 1,000 UNIT (25 MCG) TABLET PEG SCH (09:17)
[2020-07-25] MEDS: METOPROLOL TARTRATE 25 MG TABLET PEG SCH ×2 (09:17→21:05)
[2020-07-25] MEDS: FOLIC ACID 1 MG TABLET PEG SCH (09:18)
[2020-07-25] MEDS: OXYCODONE HCL IR 5 MG TABLET JT PRN ×2 (09:18→16:06)
[2020-07-25] MEDS: MULTIVITS W-MIN/IRON SOLN 60 ML PO SCH (09:19)
[2020-07-25] MEDS: CALCITRIOL 1 MCG/ML ORAL SOLN 15 ML PEG SCH (09:20)
[2020-07-25] MEDS ORDERED: [UNRECOGNIZED DRUG - OTHER] PEG SCH (10:00)
[2020-07-25] MEDS ORDERED: BUMETANIDE 1 MG TABLET PEG SCH (10:00)
[2020-07-25] MEDS ORDERED: MULTIVIT MIN PEG SCH (10:00)
[2020-07-25] MEDS ORDERED: FERROUS FUMARATE PEG SCH (10:00)
[2020-07-25] MEDS ORDERED: NORMAL SALINE 1000 ML 1,000 ML IV PRN ×2 (15:07→15:45)
[2020-07-25] MEDS ORDERED: IPRATROPIUM/ALBUTEROL 0.5-2.5 MG/3 ML AMPUL NEB PRN (15:09)
--- NOTE | 2020-07-25 15:13 | PDOC PROGRESS REPORT ---
Subjective Date:: 07/25/20 Subjective:: Patient is resting comfortably in bed. is at the bedside. She feels better after transfusion of 2 units of packed red blood cells. She is tolerating her tube feeds without difficulty. Reason For Visit: ANEMIA (MULTIFACTORIAL) ACUTE ON CHRONIC KIDNEY DI CHRONIC PANCREATITIS Physical Exam Vital Signs: Temp Pulse Resp BP Pulse Ox 98.6 F 95 18 117/78 100 07/25/20 00:30 07/25/20 03:00 07/25/20 00:30 07/25/20 00:30 07/25/20 00:30 Intake & Output 07/24/20 07/25/20 07/26/20 06:59 06:59 06:59 Intake Total 630 Balance 630 Weight 59.4 kg General appearance: PRESENT: no acute distress, cooperative, well-developed Head exam: PRESENT: atraumatic, normocephalic Ear exam: PRESENT: normal external ear exam. ABSENT: bleeding, drainage Mouth exam: PRESENT: moist, tongue midline Respiratory exam: PRESENT: rales - possible faint rales at bases, symmetrical, unlabored. ABSENT: rhonchi, tachypnea, wheezes Cardiovascular exam: PRESENT: RRR, +S1, +S2. ABSENT: bradycardia, diastolic murmur, irregular rhythm, systolic murmur, tachycardia GI/Abdominal exam: PRESENT: normal bowel sounds, soft, other - J-tube and Pleurx cath. ABSENT: tenderness Rectal exam: PRESENT: deferred Gentrourinary exam: ABSENT: indwelling catheter Extremities exam: ABSENT: pedal edema Musculoskeletal exam: PRESENT: normal inspection. ABSENT: deformity, dislocation Neurological exam: PRESENT: alert, awake, oriented to person, oriented to place, oriented to time, oriented to situation, CN II-XII grossly intact. ABSENT: altered Psychiatric exam: PRESENT: flat affect. ABSENT: agitated, anxious Focused psych exam: ABSENT: delusional, paranoid, restlessness Skin exam: PRESENT: dry, normal color, warm. ABSENT: rash Results Laboratory Results: 07/25/20 04:35 07/25/20 04:35 07/25/20 07/25/20 04:35 04:35 WBC 5.6 RBC 3.25 L Hgb 9.5 L D Hct 28.7 L MCV 88 MCH 29.3 MCHC 33.2 RDW 17.2 H Plt Count 135 L Seg Neutrophils % 83.5 H Sodium 137.7 Potassium 4.1 Chloride 92 L Carbon Dioxide 41 H* Anion Gap 5 BUN 112 H Creatinine 3.07 H Est GFR ( Amer) 19 L Glucose 88 Calcium 8.6 Phosphorus 5.1 H Magnesium 2.4 H Albumin 2.5 L Lipase 45.6 Impressions: Chest X-Ray 07/24/20 00:00 IMPRESSION: There appear to be chronic changes on the right. Cannot exclude small pleural effusions. Borderline heart size without stevie pulmonary edema. Assessment and Plan - Diagnosis (1) Anemia, chronic renal failure Qualifiers: Chronic kidney disease stage: stage 4 (severe) Qualified Code(s): N18.4 - Chronic kidney disease, stage 4 (severe); D63.1 - Anemia in chronic kidney disease Is this a current diagnosis for this admission?: Yes (2) Acute on chronic renal insufficiency Is this a current diagnosis for this admission?: Yes (3) Acute on chronic pancreatitis Is this a current diagnosis for this admission?: Yes (4) Hypertension Qualifiers: Hypertension type: essential hypertension Qualified Code(s): I10 - Essential (primary) hypertension Is this a current diagnosis for this admission?: Yes (5) CAD (coronary artery disease) Qualifiers: Coronary Disease-Associated Artery/Lesion type: [place] artery Is this a current diagnosis for this admission?: Yes (6) CHF (congestive heart failure) Qualifiers: Heart failure type: unspecified Heart failure chronicity: chronic Qualified Code(s): I50.9 - Heart failure, unspecified Is this a current diagnosis for this admission?: Yes - Plan Summary Summary: 07/24/2020 Anemia-anemia is of mixed etiology. There is her chronic kidney disease, chronic illness and low serum iron levels. She will receive 2 units of packed red blood cells. With her history of heart failure we will need to judiciously utilize fluids. Will monitor intake and output and daily weights. Acute on chronic kidney disease-marked difference in her renal function. I am holding her Bumex at this time. She may be alkalotic from diuresis. Serial laboratory studies and consult with Dr. Wolfe. Acute on chronic pancreatitis-she was due for a pancreatic duct stent but this is on hold due to her anemia and kidney failure. Will check lipase. We will continue pancreatic enzymes and tube feeds with Nepro. Hypertension-continue current home medication regimen except Bumex. Coronary artery disease with heart failure-last echocardiogram was at least 5 years ago. Ejection fraction was normal at that time. Will review old records to try and ascertain the degree of heart failure. As noted above currently holding Bumex. 07/25/2020 Anemia-hemoglobin is 9.5 today. Continue to monitor. Consider iron supplement over and above what she is receiving in her multivitamin. Renal-BUN and creatinine slowly improving. Resume IV fluids. Continue tube feed flushes. Monitor intake and output closely. Monitor renal function. Heart failure-currently holding Bumex. It is not clinically relevant to obtain an echocardiogram at this time. The specific type and degree of heart failure also does not need further investigation during this admission. We will continue to monitor intake and output and resume diuretic therapy when clinically appropriate. Continuing other cardiac medications. Pancreatitis-placement of pancreatic duct stent is temporarily delayed. Will likely take place after the holidays. Continue tube feeds as well as equivalent pancreatic enzyme supplementation based on the pharmacies formulary. Hypertension-reasonable blood pressure control. Continue cardiac meds with the exception of the diuretic Coronary artery disease-no evidence of acute coronary syndrome. Patient is ot herwise stable. Monitor clinically for any changes. - Time Time Spent with patient: 15-24 minutes Medications reviewed and adjusted accordingly: Yes Anticipated Discharge Disposition: Home, Self Care Anticipated Discharge Timeframe: within 72 hours
--- NOTE | 2020-07-25 16:00 | RADIOLOGY REPORT (SQ) ---
EXAM DESCRIPTION: CHEST SINGLE VIEW IMAGES COMPLETED DATE/TIME: 07/25/2020 3:50 pm REASON FOR STUDY: cough with inc SOB COMPARISON: 07/24/2020 NUMBER OF VIEWS: One view. TECHNIQUE: Single frontal radiographic image of the chest acquired. LIMITATIONS: None. FINDINGS: LUNGS AND PLEURA: Stable appearance. PICC line remains in place. MEDIASTINUM AND HILAR STRUCTURES: Stable heart size and mediastinal structures. HEART AND VASCULAR STRUCTURES: Stable appearance. BONES: No acute findings. HARDWARE: None in the chest. OTHER: No other significant finding. IMPRESSION: STABLE APPEARANCE OF THE CHEST. TECHNICAL DOCUMENTATION: JOB ID: [id number] 2010 [employer]- All Rights Reserved Reading location - IP/workstation name: [email or web address]
[2020-07-25] MEDS: LATANOPROST 0.005% OPH SOLN 2.5 ML OU SCH (21:07)
[2020-07-25] MEDS: GUAIFENESIN/D-METHORPHAN (200-20 MG) SYRUP 10 ML JT PRN (21:08)
--- NOTE | 2020-07-25 22:14 | PDOC CONSULTATION ---
Consultation Consult Date: 07/25/20 Provider Consulted: RACHEAL CARLSON Consult reason:: [facility] History of Present Illness Admission Date/PCP: 07/24/20 18:45 LISSETTE CROCKETT NP History of Present Illness: JIHAN MORA is a 64 year old -[place] lady known to me with history of chronic kidney disease baseline stage III secondary to hypertensive nephrosclerosis, hypertension, left nephrectomy due to renal cell carcinoma in 2007, history of lung adenocarcinoma in October 2018-status post right upper lobe resection/ status post radiation therapy, gout, recurrent pancreatitis on tube feeding, and status post Pleurx catheter placement who was admitted yesterday due to abnormal labs. Initial labs showed a hemoglobin of 6.5, BUN of 123, creatinine of 3.17 and bicarbonate of 44. She was transfused 2 units of packed RBC in the ED. Due to abnormal kidney function the patient was subsequently admitted. Patient was also given a liter of normal saline in the ED. Her blood pressure was initially low around 90s/64 but currently now improved. I have not seen the patient in my office for about a year. Her usual baseline creatinine ranged anywhere between 1.6-1.7 in 2018 associated non-nephrotic range proteinuria of less than 1 g. On 04/17/2020 she had a BUN of 32, creatinine of 2.2. Patient states that due to pancreatitis she had the jejunostomy tube placed in April 2020. Her Jelani zabala at bedside is helping her give the history. Apparently the patient has not been allowed to take anything by mouth. In May she had a Pleurx catheter placed. Currently she states that she is not really feeling so good. She has right shoulder pain since she had resuscitation for cardiac arrest episode in May. She states that she still has occasional nausea, vomiting and diarrhea but no abdominal pain. She has a little bit of a cough with some yellowish phlegm but denies any fever nor exposure to anybody with Covid. She has some chest pains and shortness of breath and is currently on home oxygen at 1.5 L per nasal cannula. She denies any problem with urination including gross hematuria nor foamy urine. She denies any leg swelling. Past Medical History Cardiac Medical History: Reports: CHF-Systolic, Coronary Artery Disease, Hyperlipidemia, Hypertension-primary, Myocardial Infarction - 2013, Other - History of bradycardia and cardiac arrest Pulmonary Medical History: Reports: Bronchitis, Pneumonia, Respiratory Failure EENT Medical History: Reports: Other - Glaucoma Neurological Medical History: Reports: Other - TIA Complications of Diabetes: Reports: Autonomic Neuropathy Renal/ Medical History: Reports: Chronic Kidney Disease Stage III, Proteinuria, Secondary Hyperparathyroidism, Solitary kidney Malignancy Medical History: Reports: Lung Cancer - Right upper partial lobectomy 11/09/2018., Pancreatic Cancer - Mass to tail pancreas, July 2015. Did not l ight up on PET scan., Renal (Kidney) Cancer - Renal cell carcinoma with left nephrectomy 2007. GI Medical History: Reports: Gastroesophageal Reflux Disease, Other - Recurrent pancreatitis, history of small bowel perforation, duodenal ulcer GI History Note: History of colon polyps, umbilical hernia March 2014, abdominal abscess March 2014 Musculoskeltal Medical History: Reports: Arthritis - Right hip DJD., Gout, Other - Sjogren's syndrome Hematology Medical History: Reports Anemia of Chronic Kidney Disease Past Surgical History Past Surgical History: Reports: Cholecystectomy, Herniorrhaphy - Umbilical hernia repair complicated by bowel perforation and peritonitis, Nephrectomy - Left renal cell carcinoma., Orthopedic Surgery - Right patella surgery for dislocation,, Vascular Surgery - Port placed in right upper arm 01/19/2019. Retinal detachment repair., Other - EGD to evaluate pancreatic mass. Right upper partial lobectomy 11/09/2018. Past Surgical Note: Small bowel resection in March 2014 Social History Information Source: Patient, Dr. Bernal, [facility] Records Lives with: Spouse/Significant other Smoking Status: Former Smoker Electronic Cigarette use?: No Frequency of Alcohol Use: None Hx Recreational Drug Use: No Drugs: None Hx Prescription Drug Abuse: No - Advance Directive Resuscitation Status: Full Code Family History Family History: CAD - Father and brother, CVA - Parents, DM - Father, End Stage Renal Disease - Father on dialysis, Hypertension - Parents Parental Family History Reviewed: Yes Children Family History Reviewed: Yes Sibling(s) Family History Reviewed.: Yes Medication/Allergy Home Medications: Acetaminophen 500 mg PEG Q8HP PRN 07/24/20 Bumetanide 1 mg PEG DAILY 07/24/20 Calcitriol [Rocaltrol 1 mcg/1 mL Oral Soln 15 mL] 0.25 ml PEG DAILY 07/24/20 Cholecalciferol (Vitamin D3) [Vitamin D3 1000 Unit Tablet] 1,000 unit PEG DAILY 07/24/20 Folic Acid [Folvite 1 mg Tablet] 1 mg PEG DAILY 07/24/20 Ipratropium/Albuterol Sulfate [Duoneb 3 ml Ampul] 3 ml NEB [id number] PRN 07/24/20 Latanoprost [Xalatan 0.005% Oph Soln 2.5 ml] 1 drop OU QHS 07/24/20 Lipase/Protease/Amylase [Joceon Dr 6,000 Units Capsule] 10 cap PEG Q6 07/24/20 Loperamide HCl [Anti-Diarrheal] 15 ml PEG DAILYP PRN 07/24/20 Metoprolol Tartrate [Lopressor 25 mg Tablet] 12.5 mg PEG Q12 07/24/20 Multivit-Min/Ferrous Fumarate [Multivitamin Liquid] 10 ml PEG DAILY 07/24/20 Ondansetron HCl [Zofran 8 mg Tablet] 8 mg PEG Q6HP PRN 07/24/20 Oxycodone HCl 5 ml PEG Q6HP PRN 07/24/20 Sodium Bicarbonate [Sodium Bicarbonate Powder 120 gm Bottle] 20 ml PEG AC 07/24/20 Trazodone HCl [Desyrel 50 mg Tablet] 50 mg PEG HSP PRN 07/24/20 Allergies/Adverse Reactions: sulfamethoxazole [From Bactrim] Allergy (Verified 07/24/20 09:42) trimethoprim [From Bactrim] Allergy (Verified 07/24/20 09:42) aspirin [Aspirin] Adverse Reaction (Verified 07/24/20 09:42) Review of Systems All systems: reviewed and no additional remarkable complaints except as stated Review of Systems: Constitutional: ABSENT: chills, fever(s), headache(s), weight gain; admits fatigue and weight loss Eyes: ABSENT: visual disturbances Ears: ABSENT: hearing changes Cardiovascular: ABSENT: dyspnea on exertion, edema, orthropnea, palpitations; admits chest pains Respiratory: ABSENT: hemoptysis; admits some cough with sputum production and s hortness of breath on home oxygen Gastrointestinal: ABSENT: abdominal pain, constipation, hematemesis, hematochezia; admits occasional diarrhea, nausea, vomiting Genitourinary: ABSENT: dysuria, hematuria Musculoskeletal: ABSENT: joint swelling; reports right shoulder pain Integumentary: ABSENT: rash, wounds Neurological: ABSENT: abnormal gait, abnormal speech, confusion, dizziness, focal weakness, numbness, syncope Psychiatric: ABSENT: anxiety, depression Endocrine: ABSENT: cold intolerance, heat intolerance, polydipsia, polyuria Hematologic/Lymphatic: ABSENT: easy bleeding, easy bruising, lymphadenopathy Physical Exam Vital Signs: Temp Pulse Resp BP Pulse Ox 98.6 F 110 H 18 117/78 100 07/25/20 10:00 07/25/20 14:00 07/25/20 00:30 07/25/20 00:30 07/25/20 00:30 Intake & Output 07/24/20 07/25/20 07/26/20 06:59 06:59 06:59 Intake Total 630 90 Balance 630 90 Weight 59.4 kg Exam: General appearance: No acute distress, cooperative, cachectic and appears ill Head exam: PRESENT: atraumatic, normocephalic Eye exam: PRESENT: Conjunctiva [place], EOMI, PERRLA. ABSENT: conjunctival injection, scleral icterus Mouth exam: PRESENT: moist, neck supple, tongue midline Neck exam: PRESENT: full ROM. ABSENT: carotid bruit, JVD, lymphadenopathy, thyromegaly Respiratory exam: PRESENT: Decreased to auscultation bilaterally. Right Pleurx catheter in place ABSENT: rales, rhonchi, stridor, wheezes Cardiovascular exam: PRESENT: RRR, +S1, +S2. ABSENT: systolic murmur Pulses: PRESENT: normal radial pulses, normal dorsalis pedis pulses GI/Abdominal exam: PRESENT: normal bowel sounds, soft. Left J-tube in place ABSENT: guarding, mass, tenderness Rectal exam: Deferred Extremities exam: PRESENT: full ROM. ABSENT: calf tenderness, pedal edema Musculoskeletal: PRESENT: full ROM. ABSENT: deformity Neurological exam: PRESENT: alert, Awake, Oriented to person, Oriented to place, Oriented to time, reflexes normal, CN II-XII grossly intact. ABSENT: motor sensory deficit Psychiatric exam: PRESENT: appropriate affect, normal mood. ABSENT: homicidal ideation, suicidal ideation Skin exam: PRESENT: intact, dry, warm. ABSENT: rash Results Laboratory Results: 07/25/20 04:35 07/25/20 04:35 07/25/20 07/25/20 04:35 04:35 WBC 5.6 RBC 3.25 L Hgb 9.5 L D Hct 28.7 L MCV 88 MCH 29.3 MCHC 33.2 RDW 17.2 H Plt Count 135 L Seg Neutrophils % 83.5 H Sodium 137.7 Potassium 4.1 Chloride 92 L Carbon Dioxide 41 H* Anion Gap 5 BUN 112 H Creatinine 3.07 H Est GFR ( Amer) 19 L Glucose 88 Calcium 8.6 Phosphorus 5.1 H Magnesium 2.4 H Albumin 2.5 L Lipase 45.6 Impressions: Chest X-Ray 07/24/20 00:00 IMPRESSION: There appear to be chronic changes on the right. Cannot exclude small pleural effusions. Borderline heart size without stevie pulmonary edema. Assessment & Plan - Diagnosis (1) Acute kidney injury superimposed on chronic kidney disease Is this a current diagnosis for this admission?: Yes Plan: Baseline chronic kidney disease secondary to hypertensive nephrosclerosis associated with nonnephrotic range proteinuria most likely new baseline kidney function around 2.0-2.2. Acute worsening of the kidney function most likely secondary to acute prerenal azotemia secondary to severe volume depletion. Patient is on tube feeding only of about 40 mL and has not been allowed to take anything by mouth due to recurrent pancreatitis. I will give some more IV fluids with normal saline at 125 mils an hour. Strict intake and output. Monitor kidney function and electrolytes. At this time she does not require any urgent acute renal replacement therapy. (2) Anemia Qualifiers: Anemia type: iron deficiency Iron deficiency anemia type: chronic blood loss Qualified Code(s): D50.0 - Iron deficiency anemia secondary to blood loss (chronic) Is this a current diagnosis for this admission?: Yes Plan: No evidence of active bleeding at this time. Most likely secondary to anemia of chronic kidney disease, iron deficiency and chronic illness. Status post transfusion with 2 units packed RBC. (3) Metabolic alkalosis Is this a current diagnosis for this admission?: Yes Plan: Associated with hypochloremia most likely secondary to volume depletion. (4) Hyponatremia Is this a current diagnosis for this admission?: Yes Plan: Due to volume depletion. (5) Recurrent pancreatitis Is this a current diagnosis for this admission?: Yes Plan: Currently on J-tube feeding. Scheduled for pancreatic stent placement at [facility]. (6) Hyperphosphatemia Is this a current diagnosis for this admission?: Yes Plan: Due to [facility]. Monitor. (7) Hypermagnesemia Is this a current diagnosis for this admission?: Yes Plan: Due to [facility]. - Notes Notes: Thank you very much for this consultation. We will follow patient with you.
[2020-07-26] MEDS: OXYCODONE HCL IR 5 MG TABLET JT PRN ×3 (05:18→13:31)
[2020-07-26] MEDS: HEPARIN SOD (PORCINE) 5,000 UNIT/ML 1 ML VIAL SUBCUT SCH (05:49)
[2020-07-26 07:32] LABS: ALBUMIN 2.2 g/dL (3.5-5.0); ANION GAP 7 (5-19); BLOOD UREA NITROGEN 96 mg/dL (7-20); CALCIUM 7.8 mg/dL (8.4-10.2); CARBON DIOXIDE 31 mmol/L (22-30); CHLORIDE 100 mmol/L (98-107); GLUCOSE 104 mg/dL (75-110); PHOSPHORUS 3.5 mg/dL (2.5-4.5); POTASSIUM 3.7 mmol/L (3.6-5.0)
[2020-07-26 07:58] LABS: ABSOLUTE LYMPHOCYTES (AUTO) 0.6 10^3/uL (0.5-4.7); ABSOLUTE MONOCYTES (AUTO) 0.3 10^3/uL (0.1-1.4); ABSOLUTE NEUT (AUTO) 4.1 10^3/uL (1.7-8.2); BASOPHILS % (AUTO) 0.2 % (0-2); EOSINOPHILS % (AUTO) 0.9 % (0-6); HEMATOCRIT 31.8 % (36.0-47.0); HEMOGLOBIN 10.5 g/dL (12.0-15.5); LYMPHOCYTES % (AUTO) 12.4 % (13-45); MEAN CORPUSCULAR HEMOGLOBIN 28.7 pg (27.0-33.4); MEAN CORPUSCULAR HGB CONC 32.9 g/dL (32.0-36.0); MEAN CORPUSCULAR VOLUME 87 fl (80-97); MONOCYTES % (AUTO) 5.5 % (3-13); PLATELET COUNT 118 10^3/uL (150-450); RED BLOOD COUNT 3.65 10^6/uL (3.72-5.28); RED CELL DISTRIBUTION WIDTH 16.7 % (11.5-14.0); TOTAL CELLS COUNTED % (AUTO) 100 %; WHITE BLOOD COUNT 5.1 10^3/uL (4.0-10.5)
[2020-07-26] MEDS: CHOLECALCIFEROL (D3) 1,000 UNIT (25 MCG) TABLET PEG SCH (09:48)
[2020-07-26] MEDS: METOPROLOL TARTRATE 25 MG TABLET PEG SCH (09:48)
[2020-07-26] MEDS: MULTIVITS W-MIN/IRON SOLN 60 ML PO SCH (09:49)
[2020-07-26] MEDS: FOLIC ACID 1 MG TABLET PEG SCH (09:49)
[2020-07-26] MEDS: CALCITRIOL 1 MCG/ML ORAL SOLN 15 ML PEG SCH (09:50)
[2020-07-26] MEDS: GUAIFENESIN/D-METHORPHAN (200-20 MG) SYRUP 10 ML JT PRN (13:10)
--- NOTE | 2020-07-26 13:40 | PDOC DISCHARGE SUMMARY ---
Impression - Admit/DC Date/PCP Admission Date/Primary Care Provider: 07/24/20 18:45 LISSETTE CAMILO NP Discharge Date: 07/26/20 - Discharge Diagnosis (1) Anemia, chronic renal failure Is this a current diagnosis for this admission?: Yes (2) Acute on chronic renal insufficiency Is this a current diagnosis for this admission?: Yes (3) Acute on chronic pancreatitis Is this a current diagnosis for this admission?: Yes (4) Hypertension Is this a current diagnosis for this admission?: Yes (5) CAD (coronary artery disease) Is this a current diagnosis for this admission?: Yes (6) CHF (congestive heart failure) Is this a current diagnosis for this admission?: Yes (7) Bronchitis Is this a current diagnosis for this admission?: Yes - Assessment Summary: 07/24/2020 Anemia-anemia is of mixed etiology. There is her chronic kidney disease, chronic illness and low serum iron levels. She will receive 2 units of packed red blood cells. With her history of heart failure we will need to judiciously utilize fluids. Will monitor intake and output and daily weights. Acute on chronic kidney disease-marked difference in her renal function. I am holding her Bumex at this time. She may be alkalotic from diuresis. Serial laboratory studies and consult with Dr. Wolfe. Acute on chronic pancreatitis-she was due for a pancreatic duct stent but this is on hold due to her anemia and kidney failure. Will check lipase. We will continue pancreatic enzymes and tube feeds with Nepro. Hypertension-continue current home medication regimen except Bumex. Coronary artery disease with heart failure-last echocardiogram was at least 5 years ago. Ejection fraction was normal at that time. Will review old records to try and ascertain the degree of heart failure. As noted above currently holding Bumex. 07/25/2020 Anemia-hemoglobin is 9.5 today. Continue to monitor. Consider iron supplement over and above what she is receiving in her multivitamin. Renal-BUN and creatinine slowly improving. Resume IV fluids. Continue tube feed flushes. Monitor intake and output closely. Monitor renal function. Heart failure-currently holding Bumex. It is not clinically relevant to obtain an echocardiogram at this time. The specific type and degree of heart failure also does not need further investigation during this admission. We will continue to monitor intake and output and resume diuretic therapy when clinically appropriate. Continuing other cardiac medications. Pancreatitis-placement of pancreatic duct stent is temporarily delayed. Will likely take place after the holidays. Continue tube feeds as well as equivalent pancreatic enzyme supplementation based on the pharmacies formulary. Hypertension-reasonable blood pressure control. Continue cardiac meds with the exception of the diuretic Coronary artery disease-no evidence of acute coronary syndrome. Patient is otherwise stable. Monitor clinically for any changes. 07/26/2020 Hemoglobin remained stable Creatinine is back to her baseline She is tolerating the tube feeds and flushes. She does appear to have bronchitis and I will prescribe doxycycline as it does not need renal adjustment. 100 mg for 10 days. I have prescribed the suspension to make it easier for J-tube administration. She is otherwise stable for discharge. - Additional Information Resuscitation Status: Full Code Discharge Diet: Tube Feeding (Comments) - Nepro tube feeds Discharge Activity: Balance Activity w/Rest, Slowly Increase Activity Referrals: LISSETTE CAMILO NP [Primary Care Provider] - Follow up as needed Prescriptions: Doxycycline Calcium [Vibramycin] 100 mg PO BID 10 Days #200 ml Home Medications: Acetaminophen 500 mg PEG Q8HP PRN 07/24/20 Calcitriol [Rocaltrol 1 mcg/1 mL Oral Soln 15 mL] 0.25 ml PEG DAILY 07/24/20 Cholecalciferol (Vitamin D3) [Vitamin D3 1000 Unit Tablet] 1,000 unit PEG DAILY 07/24/20 Folic Acid [Folvite 1 mg Tablet] 1 mg PEG DAILY 07/24/20 Ipratropium/Albuterol Sulfate [Duoneb 3 ml Ampul] 3 ml NEB [id number] PRN 07/24/20 Latanoprost [Xalatan 0.005% Oph Soln 2.5 ml] 1 drop OU QHS 07/24/20 Lipase/Protease/Amylase [Arleen Fontaine 6,000 Units Capsule] 10 cap PEG Q6 07/24/20 Loperamide HCl [Anti-Diarrheal] 15 ml PEG DAILYP PRN 07/24/20 Metoprolol Tartrate [Lopressor 25 mg Tablet] 12.5 mg PEG Q12 07/24/20 Multivit-Min/Ferrous Fumarate [Multivitamin Liquid] 10 ml PEG DAILY 07/24/20 Ondansetron HCl [Zofran 8 mg Tablet] 8 mg PEG Q6HP PRN 07/24/20 Oxycodone HCl 5 ml PEG Q6HP PRN 07/24/20 Trazodone HCl [Desyrel 50 mg Tablet] 50 mg PEG HSP PRN 07/24/20 Doxycycline Calcium [Vibramycin] 100 mg PO BID 10 Days #200 ml 07/26/20 Guaifenesin/D-Methorphan Hb [Robitussin-Dm Syrup 10 ml Udcup] 10 ml JT QIDP PRN syrup 07/26/20 History of Present Illiness History of Present Illness: JIHAN MORA is a 64 year old female who was scheduled to go to [place] to have a pancreatic stent placed. She has been having episodes of acute on chronic pancreatitis. She has had pancreatic stones in the past. Preadmission laboratory studies revealed a hemoglobin of 6.5. BUN was 123 with a creatinine of 3.17. Bicarb is 44. Iron studies were performed as well. She was given 2 units of packed red blood cells in the emergency department. Dr. Wolfe is her video control engineer. Due to the significantly increased levels she recommended ad mission for gentle hydration and monitoring of her renal function. In April her hemoglobin was below 7 and she received 2 units of packed red cells at that time. It is extremely unlikely that she has a recurrent bleed. I believe the anemia is more combination of iron deficiency with her chronic illness and renal failure. Her most prominent symptoms are right shoulder pain which has been ch ronic. She also states that she has had some nausea but has not seen any blood in the vomitus. During this encounter she asked for the head of the bed to be elevated because she was having some difficulty breathing. Normally she is on 1.5 L/min nasal cannula oxygen at home. She does have a jejunostomy tube and gets Nepro at 40 mL/h continuous. At home she does take sips of clear liquids. She also has a Pleurx catheter. Her daughters, who are on the phone, stated that there was no output yesterday and they did not attempt to drain it today because the patient presented to the hospital. I explained that we will get a chest x-ray and that would give us an idea of fluid and that the nurses will be checking this on a regular basis. Her was going to get paperwork from [place]. When she was discharged from [place] in April he reports that there were multiple medication changes and so I want to be current and have her on the correct medication regimen. The emergency department physician spoke with her physician at [place]. It is likely they will reschedule the procedure after the holidays. Hospital Course Hospital Course: As above Physical Exam Vital Signs: Temp Pulse Resp BP Pulse Ox 98.7 F 85 16 123/72 99 07/26/20 11:35 07/26/20 11:35 07/26/20 11:35 07/26/20 11:35 07/26/20 11:35 Intake & Output 07/25/20 07/26/20 07/27/20 06:59 06:59 06:59 Intake Total 630 1180 220 Output Total 1050 Balance 630 130 220 Weight 59.4 kg 62.2 kg General appearance: PRESENT: no acute distress, thin Respiratory exam: PRESENT: clear to auscultation marianna, symmetrical, unlabored, other - Congested cough. ABSENT: rales, rhonchi, tachypnea, wheezes Cardiovascular exam: PRESENT: RRR, +S1, +S2 GI/Abdominal exam: PRESENT: normal bowel sounds, soft, other - J-tube and Pleurx catheter. ABSENT: tenderness Neurological exam: PRESENT: alert, awake, oriented to person, oriented to place, oriented to situation Psychiatric exam: PRESENT: appropriate affect. ABSENT: agitated, anxious Results Laboratory Results: WBC 5.1 10^3/uL (4.0-10.5) 07/26/20 07:25 RBC 3.65 10^6/uL (3.72-5.28) L 07/26/20 07:25 Hgb 10.5 g/dL (12.0-15.5) L 07/26/20 07:25 Hct 31.8 % (36.0-47.0) L 07/26/20 07:25 MCV 87 fl (80-97) 07/26/20 07:25 MCH 28.7 pg (27.0-33.4) 07/26/20 07:25 MCHC 32.9 g/dL (32.0-36.0) 07/26/20 07:25 RDW 16.7 % (11.5-14.0) H 07/26/20 07:25 Plt Count 118 10^3/uL (150-450) L 07/26/20 07:25 Lymph % (Auto) 12.4 % (13-45) L 07/26/20 07:25 Early % (Auto) 5.5 % (3-13) 07/26/20 07:25 Eos % (Auto) 0.9 % (0-6) 07/26/20 07:25 Baso % (Auto) 0.2 % (0-2) 07/26/20 07:25 Reticulocyte # 0.040 10^6/uL (0.028-0.122) 07/24/20 10:09 Absolute Neuts (auto) 4.1 10^3/uL (1.7-8.2) 07/26/20 07:25 Absolute Lymphs (auto) 0.6 10^3/uL (0.5-4.7) 07/26/20 07:25 Absolute Monos (auto) 0.3 10^3/uL (0.1-1.4) 07/26/20 07:25 Absolute Eos (auto) 0.0 10^3/uL (0.0-0.6) 07/26/20 07:25 Absolute Basos (auto) 0.0 10^3/uL (0.0-0.2) 07/26/20 07:25 Seg Neutrophils % 81.0 % (42-78) H 07/26/20 07:25 Retic Count (auto) 1.80 % (0.66-2.85) 07/24/20 10:09 Sodium 138.0 mmol/L (137-145) 07/26/20 05:46 Potassium 3.7 mmol/L (3.6-5.0) 07/26/20 05:46 Chloride 100 mmol/L (98-107) 07/26/20 05:46 Carbon Dioxide 31 mmol/L (22-30) H 07/26/20 05:46 Anion Gap 7 (5-19) 07/26/20 05:46 BUN 96 mg/dL (7-20) H 07/26/20 05:46 Creatinine 2.25 mg/dL (0.52-1.25) H 07/26/20 05:46 Est GFR ( Amer) 27 (>60) L 07/26/20 05:46 Est GFR (MDRD) Non-Af 22 (>60) L 07/26/20 05:46 Glucose 104 mg/dL (75-110) 07/26/20 05:46 Calcium 7.8 mg/dL (8.4-10.2) L 07/26/20 05:46 Phosphorus 3.5 mg/dL (2.5-4.5) 07/26/20 05:46 Magnesium 2.1 mg/dL (1.6-2.3) 07/26/20 05:46 Iron 35.1 ug/dL (37-170) L 07/24/20 10:09 TIBC 260 ug/dL (250-450) 07/24/20 10:09 % Saturation 14 % 07/24/20 10:09 Ferritin 2580.00 ng/mL (11.1-264.0) H 07/24/20 10:09 Total Bilirubin 0.8 mg/dL (0.2-1.3) 07/24/20 10:09 Direct Bilirubin 0.5 mg/dL (0.0-0.4) H 07/24/20 10:09 Neonat Total Bilirubin Not Reportable 07/24/20 10:09 Neonat Direct Bilirubin Not Reportable 07/24/20 10:09 Neonat Indirect Bili Not Reportable 07/24/20 10:09 AST 51 U/L (14-36) H 07/24/20 10:09 ALT 49 U/L (<35) H 07/24/20 10:09 Alkaline Phosphatase 172 U/L (38-126) H 07/24/20 10:09 Total Protein 6.0 g/dL (6.3-8.2) L 07/24/20 10:09 Albumin 2.2 g/dL (3.5-5.0) L 07/26/20 05:46 Lipase 45.6 U/L (23-300) 07/25/20 04:35 Vitamin B12 563.0 pg/mL (239-931) 07/24/20 10:09 Folate > 20.00 ng/mL (>2.76) 07/24/20 10:09 Blood Type O POSITIVE 07/24/20 10:09 Antibody Screen NEGATIVE 07/24/20 10:09 Crossmatch See Detail 07/24/20 10:09 Impressions: Chest X-Ray 07/24/20 00:00 IMPRESSION: There appear to be chronic changes on the right. Cannot exclude small pleural effusions. Borderline heart size without stevie pulmonary edema. Chest X-Ray 07/25/20 00:00 IMPRESSION: STABLE APPEARANCE OF THE CHEST. Plan Health Concerns: Extremely complex medical history. Awaiting pancreatic stent placement while struggling with chronic kidney disease and anemia secondary to kidney disease and iron deficiency. Plan of Treatment: We will hold the Bumex and sodium hydroxide for the time being. She needs repeat blood work within a week or so. I have asked her to follow-up with Lissette Camilo and Dr. Wolfe as well as the de icer finisher at [place]. Treat bronchitis with a 10-day course of doxycycline 100 mg twice daily Goals: Successful placement of pancreatic stent Resolution of bronchitis Better control of anemia Time Spent: Greater than 30 Minutes Stroke Is this a Stroke Patient?: No Acute Heart Failure Is this a Heart Failure Patient?: No
[2020-07-26] MEDS ORDERED: DOXYCYCLINE HYCLATE 100 MG in DEXTROSE 5%-WATER 250 ML IV ONE (14:30)
[2020-07-26 16:00] VITALS: BP 98/67
== END 2020-07-26 16:55 | disposition home health service (06) | DRG 682 ==
LOC: ER 09:06 → EH 18:45 → 4N 20:54
PROVIDERS: ADMIT Hospitalist; ATTEND Hospitalist
PROC: 30233N1 Transfusion of Nonautologous Red Blood Cells into Peripheral Vein, Percutaneous Approach (ICD-10-PCS; principal; 2020-07-24)
DX: N17.9 Acute kidney failure, unspecified (principal); K85.90 Acute pancreatitis without necrosis or infection, unspecified; K86.1 Other chronic pancreatitis; I13.0 Hypertensive heart and chronic kidney disease with heart failure and stage 1 through stage 4 chronic kidney disease, or unspecified chronic kidney disease; I50.22 Chronic systolic (congestive) heart failure; E87.1 Hypo-osmolality and hyponatremia; D50.0 Iron deficiency anemia secondary to blood loss (chronic); G89.4 Chronic pain syndrome; N18.4 Chronic kidney disease, stage 4 (severe); D63.1 Anemia in chronic kidney disease; E83.41 Hypermagnesemia; E83.39 Other disorders of phosphorus metabolism; Z99.81 Dependence on supplemental oxygen; Z93.4 Other artificial openings of gastrointestinal tract status; I25.2 Old myocardial infarction; Z86.73 Personal history of transient ischemic attack (TIA), and cerebral infarction without residual deficits; Z85.118 Personal history of other malignant neoplasm of bronchus and lung; Z90.2 Acquired absence of lung [part of]; Z87.891 Personal history of nicotine dependence; Z85.528 Personal history of other malignant neoplasm of kidney; Z85.07 Personal history of malignant neoplasm of pancreas; Z90.49 Acquired absence of other specified parts of digestive tract; Z79.899 Other long term (current) drug therapy; Z88.6 Allergy status to analgesic agent; Z88.2 Allergy status to sulfonamides; Z88.3 Allergy status to other anti-infective agents
CPT/HCPCS: 36415; 36430; 71045; 80053; 80069; 82607; 82728; 82746; 83540; 83550; 83690; 83735; 85025; 85045; 86850; 86900; 86901; 86920; J1642; J1644; J3490; J7030; J7060; P9016

== ENCOUNTER → 2020-08-24 | Outpatient (CLI) | payer MEDICARE, MEDICAID ==
[2020-08-27 14:16] LABS: ANION GAP 11 (5-19); BLOOD UREA NITROGEN 68 mg/dL (7-20); CARBON DIOXIDE 23 mmol/L (22-30); CHLORIDE 101 mmol/L (98-107); GLUCOSE 110 mg/dL (75-110)
== END ==
LOC: OD 14:20
PROVIDERS: ATTEND Internal Medicine Nephrology
DX: E87.5 Hyperkalemia (principal); N18.4 Chronic kidney disease, stage 4 (severe)
CPT/HCPCS: 36415; 80048; 84132